=== PATIENT | female | born 1960 | race Caucasian/White ===

== ENCOUNTER 2023-06-24 15:25 | Outpatient (OUT) | payer OTHER, SELFPAY ==
[2023-06-24 17:01] LABS: Free T3 2.28 pg/mL (2.18-3.98); Thyroid Stimulating Hormone 2.408 uIU/mL (0.358-3.740)
[2023-06-24 17:11] LABS: Free T4 1.13 ng/dL (0.76-1.46)
== END 2023-06-24 15:26 | disposition home or self-care (01) ==
LOC: LAB 15:29
PROVIDERS: PCP Internal Medicine; Visit Provider Internal Medicine
DX: E03.9 Hypothyroidism, unspecified (principal)
CPT/HCPCS: 36415; 84436; 84439; 84443; 84481

== ENCOUNTER 2023-06-29 12:56 | Outpatient (OUT) | payer OTHER, SELFPAY ==
--- NOTE | 2023-06-29 13:00 | XR_ITS ---
[address] [address] Patient Name: JUNI HODGES MRN: [id number] date: 1960 Sex: F Assigned Patient Location: [facility] Current Patient Location: [facility] Accession/Order Number: [id number] Exam Date: 06/29/2023 13:08 Report Date: 06/29/2023 15:06 At the request of: SHAIKH VALENTE Procedure: XR lumbar spine 2-3V EXAM: XR lumbar spine 2-3V HISTORY: Right Sided Low Back Pain With Sciatica M54.41 COMPARISON: None. TECHNIQUE: 3 views Findings/impression: Satisfactory alignment. Maintained vertebral body heights and disc spaces. Facet arthropathy of L4-S1. No acute fracture or subluxation. Unremarkable soft tissues. Electronically authenticated by: WILMA HAMMOND Date: 06/29/2023 15:06
== END 2023-06-29 12:57 | disposition home or self-care (01) ==
LOC: RAD 12:57
PROVIDERS: PCP Internal Medicine; Visit Provider Internal Medicine
DX: M54.41 Lumbago with sciatica, right side (principal)
CPT/HCPCS: 72100

== ENCOUNTER 2023-07-29 12:58 | Outpatient (RCR) | payer OTHER, SELFPAY | END 2023-08-27 16:41 | disposition home or self-care (01) | LOC: PT 12:58 | PROVIDERS: PCP Internal Medicine; Visit Provider Internal Medicine | DX: M54.41 Lumbago with sciatica, right side (principal) | CPT/HCPCS: 97012; 97014; 97110; 97162 ==

== ENCOUNTER 2023-10-06 11:00 | Outpatient (OUT) | payer OTHER, SELFPAY ==
--- NOTE | 2023-10-06 11:07 | MM_ITS ---
Patient Name: JUNI HODGES MR#: [id number] : 1960 Exam Date: 10/06/2023 Ordering Doctor: Shaikh Quintin Chapin . RADIOLOGY REPORT PROCEDURE: MM TOMOSYNTHESIS SCREENING BI COMPARISON: MG MAMM SCREEN 3D MEKA CAD, 09/24/2022. MG MAMM SCREEN 3D MEKA CAD, 04/16/2021. MG MAMM SCREEN MEKA W CAD, 06/30/2017. MG MAMM MEKA SCRN W CAD DIG, 05/31/2013. INDICATIONS: Screening Calculator Name NCI Breast Cancer Risk Assessment Tool 5 Year Breast Cancer Risk 1.60% Lifetime Breast Cancer Risk 6.30% Personal Breast Cancer No Personal Ovarian Cancer No Treatments None Family Cancers Grandmother-paternal with breast cancer at age ~70. LOCATION: [facility] BREAST COMPOSITION: Scattered areas fibroglandular density. FINDINGS: DIAGNOSTIC CATEGORY 2--BENIGN FINDING: RIGHT BREAST: No significant suspicious finding. Scattered benign-appearing lymph nodes are present. No significant change has occurred. LEFT BREAST: No significant suspicious finding. Scattered benign-appearing lymph nodes are present. No significant change has occurred. RECOMMENDATIONS: ROUTINE MAMMOGRAM AND CLINICAL EVALUATION IN 12 MONTHS. PLEASE NOTE: A NORMAL MAMMOGRAM DOES NOT EXCLUDE THE POSSIBILITY OF BREAST CANCER. A CLINICALLY SUSPICIOUS PALPABLE LUMP SHOULD BE BIOPSIED. Dictated by: Shahid Molina M.D. on 10/06/2023 at 15:07 Approved by: Shahid Molina M.D. on 10/06/2023 at 15:09
== END 2023-10-06 11:01 | disposition home or self-care (01) ==
LOC: MAMMO 11:01
PROVIDERS: PCP Internal Medicine; Visit Provider Internal Medicine
DX: Z12.31 Encounter for screening mammogram for malignant neoplasm of breast (principal); Z80.3 Family history of malignant neoplasm of breast
CPT/HCPCS: 77063; 77067

== ENCOUNTER 2023-12-27 13:10 | Emergency (ER) | payer OTHER, SELFPAY ==
--- OUTSIDE RECORDS SUMMARY | 2023-12-27 13:16 | XMS_ITS | CCD ---
Author Name Unknown Address [address] [place] [address] Organization [facility] Care Team Providers Care Machine Pecan Gatherer Name Role Phone FAWWAD, VAIL H Attending Unavailable FAWWAD, VAIL H Admitting Unavailable DR MAKENZIE GOLDMAN V Consulting Unavailable FAWWAD, VAIL H Primary Care Unavailable FAWWAD, VAIL H Consulting Unavailable FAWWAD, VAIL H Attending Unavailable FAWWAD, VAIL H Admitting Unavailable FAWWAD, VAIL H Primary Care Unavailable ZIEBANNETTA, DR SHAHID Schmidt Consulting Unavailable FAWWAD, VAIL H Consulting Unavailable FAWWAD, VAIL H Attending Unavailable FAWWAD, VAIL H Admitting Unavailable FAWWAD, VAIL H Primary Care Unavailable ZIEBER, DR SHAHID Schmidt Consulting Unavailable FAWWAD, VAIL H Consulting Unavailable APLINGFRANCIA Attending Unavailable FAWWAD, VAIL H Primary Care Unavailable APLINGFRANCIA Admitting Unavailable FAWWAD, VAIL H Primary Care Unavailable REQUEST, NONE LISTED Consulting Unavaila ble REQUEST, NONE LISTED Attending Unavaila ble REQUEST, NONE LISTED Admitting Unavaila ble FAWWAD, VAIL H Primary Care Unavailable FAWWAD, VAIL H Consulting Unavailable FAWWAD, VAIL H Attending Unavailable FAWWAD, VAIL H Admitting Unavailable Problems Active Problems Problem Classification Problem Date Documented Date Episodic/Chronic Disorders of lipid metabolism (5 sources) Hyperlipidemia, unspecified; Translations: [HYPERLIPIDEMIA UNSPECIFIED] Onset: 03-25-2022 Chronic Osteoarthritis (4 sources) Unilateral primary osteoarthritis, left hip; Translations: [UNI PRIM OSTEOARTHRITIS LT HIP] Onset: 05-13-2022 Chronic Other lower respiratory disease (1 source) Other nonspecific abnormal finding of lung field; Translations: [OTH NONSPECIFIC ABN FIND LNG FIELD] Onset: 12-19-2022 Episodic Other screening for suspected conditions (not mental disorders or infectious disease) (4 sources) Encounter for screening mammogram for malignant neoplasm of breast; Translations: [ENC SCR MAMMO MALIG NEOPLASM BREAST] Onset: 09-24-2022 Episodic Residual codes; unclassified (1 source) Family history of malignant neoplasm of breast; Translations: [FAMILY HX MALIG NEOPLASM OF BREAST] Onset: 09-29-2022 Episodic Thyroid disorders (5 sources) Hypothyroidism, unspecified; Translations: [HYPOTHYROIDISM UNSPECIFIED] Onset: 03-27-2022 Chronic Past or Other Problems Problem Classification Problem Date Documented Da te Episodic/Chronic Other nervous system disorders (4 sources) Anesthesia of skin; Translations: [ANESTHESIA OF SKIN] Onset: 04-08-2022 Episodic Other non-traumatic joint disorders (1 source) Pain in left hip; Translations: [PAIN IN LEFT HIP] Onset: 05-16-2022 Episodic Results Test Name Value Interpretation Reference Range Facility CT CHEST WO CONon 12-16-2022 CT CHEST WO CON EXAMINATION: CT CHES T WO CON HISTORY: Lung field abnormal ; follow-up pulmonary nodules COMPARISON: CT chest 10/16/2021 TECHNIQUE: Axial, Coronal, and Sagittal images were created without the administration of IV contrast material. Dose reduction techniques were achieved by using automated exposure control and/or adjustment of mA and/or kV according to patient size and/or use of iterative reconstruction technique. FINDINGS: LUNGS: Stable appearance of several small nodules scattered within the lungs, most approximately 4 mm in diameter. No new or suspicious nodules. No acute infiltrates. PLEURA: No mass, effusion, or pneumothorax. VASCULATURE: No abnormality. MO: No mass or adenopathy. MEDIASTINUM: No mass or adenopathy. CARDIAC: No enlargement or pericardial thickening. AORTA: No aneurysm or dissection. CHEST WALL: No mass or axillary adenopathy. BONES: No bone lesion or fracture. LIMITED ABDOMEN: Multiple stones within the noninflamed gallbladder. Limited images of the upper abdomen. OTHER: Negative. IMPRESSION: 1. Stable small sub-5 mm nodules scattered within the lungs. No new nodules or suspicious findings. If patient is at increased risk for lung cancer consider follow-up CT chest without contrast in one year to document stability. 2. Cholelithiasis. Electronically authenticated by: SHAHID MOLINA Date: 2022-12-16 14:13 Normal [facility] VICKEY - VITAMIN Don 12-16-2022 VIT D 25-OH 28.8 ng/mL Normal [facility] Comment on above: Performed By: #### D ATVITD #### [facility] [address] [place] [address] Dr. Emmanuel Hillman VIT D RANGES SEE BELOW Normal [facility] Comment on above: Result Comment: <20 ng/mL Vit D deficient 20 - <30 ng/mL Vit D insufficient 30 - 100 ng/mL Vit D sufficient >100 ng/mL Potential Toxicity Performed By: #### D ATVITD #### [facility] [address] [place] [address] Dr. Emmanuel Hillman GLYCOHEMOGLOBIN A1Con 2022 ADA RECOMMENDATION SEE BELOW Normal [facility] Comment on above: Result Comment: ADA RECOMMENDED LIMIT 4.0 - 6.0 ADA THERAPEUTIC TARGET < 7.0 ACTION SUGGESTED > 7.0 Performed By: #### D ATA1C #### [facility] [address] [place] [address] Dr. Emmanuel Hillman Glucose [Mass/Vol] 108 mg/dL Normal [facility] Comment on above: Performed By: #### D ATA1C #### [facility] [address] [place] [address] Dr. Emmanuel Hillman HbA1c (Bld) [Mass fraction] 5.4 % Normal 4.5-6.2 [facility] Comment on above: Performed By: #### D ATA1C #### [facility] [address] [place] [address] Dr. Emmanuel Hillman LIPID PROFILEon 12-16-2022 CHOL-HDL RATIO NORM SEE BELOW Normal [facility] Comment on above: Result Comment: 3.3 - 4.4 LOW RISK 4.4 - 7.1 AVERAGE RISK 7.1 - 11.0 MODERATE RISK >11.0 HIGH RISK Performed By: #### L IPID, TSH, LIVER #### [facility] [address] [place] [address] Dr. Emmanuel Hillman Cholesterol [Mass/Vol] 148 mg/dL Normal <=200 [facility] Comment on above: Performed By: #### L IPID, TSH, LIVER #### [facility] [address] [address] [address] Emmanuel Hillman Cholesterol in HDL [Mass/Vol] 44 mg/dL Normal 40-60 [facility] Comment on above: Performed By: #### L IPID, TSH, LIVER #### [facility] [address] [address] [address] Emmanuel Hillman Cholesterol in LDL [Mass/Vol] 79.0 mg/dL Normal [facility] Comment on above: Performed By: #### L IPID, TSH, LIVER #### [facility] [address] [address] [address] Emmanuel Hillman Cholesterol.total/Cho lesterol in HDL [Mass ratio] 3.4 {ratio} Normal [facility] Comment on above: Performed By: #### L IPID, TSH, LIVER #### [facility] [address] [address] [address] Emmanuel Hillman HDL NORMAL > or = 60 mg/dl - LO W CARDIOVASCULAR RISK <40 mg/dl - HIGH CARDIOVASCULAR RISK Normal [facility] Comment on above: Performed By: #### L IPID, TSH, LIVER #### [facility] [address] [address] [address] Emmanuel Hillman LDL CALC NORMAL SEE BELOW Normal [facility] Comment on above: Result Comment: <100 mg/dl OPTIMAL 100 - 129 mg/dl NEAR OR ABOVE OPTIMAL 130 - 159 mg/dl BORDERLINE HIGH 160 - 189 mg/dl HIGH >190 mg/dl VERY HIGH Performed By: #### L IPID, TSH, LIVER #### [facility] [address] [address] [address] Emmanuel Hillman Triglyceride [Mass/Vol] 125 mg/dL Normal <=150 [facility] Comment on above: Performed By: #### L IPID, TSH, LIVER #### [facility] [address] [address] [address] Emmanuel Hillman VLDL CALC 25.0 mg/dL Normal [facility] Comment on above: Performed By: #### L IPID, TSH, LIVER #### [facility] [address] [address] [address] Emmanuel Hillman LIVER PROFILEon 12-16-2022 Albumin [Mass/Vol] 3.7 g/dL Normal 3.4-5.0 [facility] Comment on above: Performed By: #### L IPID, TSH, LIVER #### [facility] [address] [address] [address] Emmanuel Hillman Albumin/Globulin [Mass ratio] 0.9 {ratio} Normal [facility] Comment on above: Performed By: #### L IPID, TSH, LIVER #### [facility] [address] [place] [address] Dr. Emmanuel Hillman ALP [Catalytic activity/Vol] 69 U/L Normal 46-116 [facility] Comment on above: Performed By: #### L IPID, TSH, LIVER #### [facility] [address] [place] [address] Dr. Emmanuel Hillman ALT [Catalytic activity/Vol] 34 U/L Normal 14-59 [facility] Comment on above: Performed By: #### L IPID, TSH, LIVER #### [facility] [address] [place] [address] Dr. Emmanuel Hillman AST [Catalytic activity/Vol] 17 U/L Normal 15-37 [facility] Comment on above: Performed By: #### L IPID, TSH, LIVER #### [facility] [address] [place] [address] Dr. Emmanuel Hillman BILI, CONJUGATED 0.1 mg/dL Normal 0.0-0.2 [facility] Comment on above: Performed By: #### L IPID, TSH, LIVER #### [facility] [address] [place] [address] Dr. Emmanuel Hillman Bilirubin [Mass/Vol] 0.4 mg/dL Normal 0.2-1.0 [facility] Comment on above: Performed By: #### L IPID, TSH, LIVER #### [facility] [address] [place] [address] Dr. Emmanuel Hillman Globulin (S) [Mass/Vol] 4.3 g/dL Normal [facility] Comment on above: Performed By: #### L IPID, TSH, LIVER #### [facility] [address] [address] [address] Emmanuel Hillman Protein [Mass/Vol] 8.0 g/dL Normal 6.4-8.2 [facility] Comment on above: Performed By: #### L IPID, TSH, LIVER #### [facility] [address] [address] [address] Emmanuel Hillman TSHon 12-16-2022 TSH 5.447 uIU/mL Critically high 0.358-3.740 [facility] Comment on above: Performed By: #### L IPID, TSH, LIVER #### [facility] [address] [address] [address] Emmanuel Hillman MG MAMM SCREEN 3D MEKA CADon 09-24-2022 MG MAMM SCREEN 3D MEKA CAD Patient: CATHERINE SHEIKH Exam Date: 09/24/2022 : 1960 Gender:F Ordering : SHAIKH Quintin CHAPIN . Admission #: [id number] Family : Order #: [id number] CLICK HERE TO VIEW EXAM RADIOLOGY REPORT PROCEDURE: MAMMOGRAM SCREENING 3D BILATERAL CAD COMPARISON: MG MAMM SCREEN 3D MEKA CAD, 04/16/2021. MG MAMM SCREEN MEKA W CAD, 06/30/2017. INDICATIONS: Screening mammography Calculator Name NCI Breast Cancer Risk Assessment Tool 5 Year Breast Cancer Risk 1.50% Lifetime Breast Cancer Risk 6.70% Personal Breast Cancer No Personal Ovarian Cancer No Treatments None Family Cancers Grandmother-paternal with breast cancer at age 70. LOCATION: [facility] BREAST COMPOSITION: Scattered areas fibroglandular density. FINDINGS: DIAGNOSTIC CATEGORY 2--BENIGN FINDING: RIGHT BREAST: No significant suspicious finding. Stable, chronic small lymph nodes and focal islands of residual fibroglandular tissue. No significant change has occurred. LEFT BREAST: No significant suspicious finding. Stable, chronic small lymph nodes and focal islands of residual fibroglandular tissue. No significant change has occurred. RECOMMENDATIONS: ROUTINE MAMMOGRAM AND CLINICAL EVALUATION IN 12 MONTHS. PLEASE NOTE: A NORMAL MAMMOGRAM DOES NOT EXCLUDE THE POSSIBILITY OF BREAST CANCER. A CLINICALLY SUSPICIOUS PALPABLE LUMP SHOULD BE BIOPSIED. Dictated by: Shahid Molina M.D. on 09/24/2022 at 13:30 Approved by: Shahid Molina M.D. on 09/24/2022 at 13:35 Normal [facility] LIPID PROFILEon 03-25-2022 CHOL-HDL RATIO NORM SEE BELOW Normal [facility] Comment on above: Result Comment: 3.3 - 4.4 LOW RISK 4.4 - 7.1 AVERAGE RISK 7.1 - 11.0 MODERATE RISK >11.0 HIGH RISK Performed By: #### L IPID, TSH #### [facility] [address] [address] [address] Emmanuel Hillman Cholesterol [Mass/Vol] 149 mg/dL Normal <=200 [facility] Comment on above: Performed By: #### L IPID, TSH #### [facility] [address] [address] [address] Emmanuel Hillman Cholesterol in HDL [Mass/Vol] 44 mg/dL Normal 40-60 [facility] Comment on above: Performed By: #### L IPID, TSH #### [facility] [address] [address] [address] Emmanuel Hillman Cholesterol in LDL [Mass/Vol] 87.6 mg/dL Normal [facility] Comment on above: Performed By: #### L IPID, TSH #### [facility] [address] [address] [address] Emmanuel Hillman Cholesterol.total/Cho lesterol in HDL [Mass ratio] 3.4 {ratio} Normal [facility] Comment on above: Performed By: #### L IPID, TSH #### [facility] [address] [address] [address] Emmanuel Hillman HDL NORMAL > or = 60 mg/dl - LO W CARDIOVASCULAR RISK <40 mg/dl - HIGH CARDIOVASCULAR RISK Normal [facility] Comment on above: Performed By: #### L IPID, TSH #### [facility] [address] [address] [address] Emmanuel Hillman LDL CALC NORMAL SEE BELOW Normal [facility] Comment on above: Result Comment: <100 mg/dl OPTIMAL 100 - 129 mg/dl NEAR OR ABOVE OPTIMAL 130 - 159 mg/dl BORDERLINE HIGH 160 - 189 mg/dl HIGH >190 mg/dl VERY HIGH Performed By: #### L IPID, TSH #### [facility] [address] [address] [address] Emmanuel Hillman Triglyceride [Mass/Vol] 87 mg/dL Normal <=150 [facility] Comment on above: Performed By: #### L IPID, TSH #### [facility] [address] [address] [address] Emmanuel Hillman VLDL CALC 17.4 mg/dL Normal [facility] Comment on above: Performed By: #### L IPID, TSH #### [facility] [address] [address] [address] Emmanuel Hillman TSHon 03-25-2022 TSH 3.614 uIU/mL Normal 0.358-3.740 [facility] Comment on above: Performed By: #### L IPID, TSH #### [facility] [address] [address] [address] Emmanuel Hillman TSH RANGE SEE BELOW Normal [facility] Comment on above: Result Comment: <0.3 4 UIU/ml HYPERTHYROID 0.34-5.60 UIU/ml EUTHYROID >5.60 UIU/ml HYPOTHYROID Performed By: #### L IPID, TSH #### [facility] [address] [place] [address] Dr. Emmanuel Hillman [place] [facility] [place] [facility] [place] October 11, 2021 SHAIKH VALENTE, [address] [place] [address] Re: CATHERINE SHEIKH Date of : 1960 Thank you for your referral of Catherine Sheikh who was seen on consultation for abdominal pain, Right upper quadrant pain and nausea with vomiting. I have enclosed my consultation note for your review. I will be happy to follow Catherine. Sincerely, Raymond Davalos MD General Surgery [facility] Ambulatory Clinical Summaryo n 10-09-2021 Ambulatory Clinical Summary {[id number] Normal [facility] Gastroenterology Office/Clin ic Noteon 08-19-2021 Gastroenterology Office/Clinic Note Chief Complaint f/u EGD/Colon HPI Staff This is a 60 year old female who presents today for a follow up to EGD and colonoscopy. History of Present Illness The patient or their guardian verbally consented to allow Louisa Kern to record this visit. Catherine Sheikh is a 60-year-old white female presents today for a follow-up. She was last seen on 04/23/2021 for globus sensation, GERD, and generalized abdominal pain. I proceeded with an EGD which revealed a large esophageal inlet patch. She has been taking omeprazole for a few years. The patient had a colonoscopy and I removed 2 small benign polyps. She will need another colonoscopy in 5 years. The patient reports right upper quadrant abdominal pain sometimes daily. She has not determined if food is a trigger. She has undergone a gallbladder ultrasound which revealed gallbladder stones and slight fatty liver. Review of Systems PHQ Score Initial Depression Screen Score: 0 Constitutional: no fever, no chills, no sweats, no weakness Skin: no Jaundice, no rash, no lesions, no petechiae ENMT: no ear pain, no sore throat, no congestion, no hoarseness Respiratory: no shortness of breath, no cough, no orthopnea, no wheezing Cardiovascular: no chest pain, no palpitations, no edema Gastrointestinal: no nausea, no vomiting, no diarrhea, no constipation, no GI bleeding, abdominal pain, no dysphagia, no bloating, heartburn Genitourinary: no dysuria, no hematuria, no discharge, no pain Musculoskeletal: no back pain, no trauma Neurologic: no numbness, no sleeping problems Additional ROS info: Except as noted in the above Review of Systems and in the History of Present Illness all other systems have been reviewed and are negative or noncontributory. Physical Exam Vitals & Measurements T: 36.4 ?C (Temporal Artery) HR: 67(Peripheral) RR: 16 BP: 128/79 HT: 166 cm HT: 166.0 cm WT: 99.7 kg WT: 99.7 kg BMI: 36.18 Constitutional: Appearance: well developed Skin: Inspection: no rashes, ulcers, icterus, or telangiectasias. Eyes: Conjunctivae/lids: normal conjunctivae and lids. ENMT: Hearing: within normal limits. Lips/Teeth/Gums: normal oral mucosa Neck: Neck: normal motion, central trachea Respiratory: Percussion: thorax normoresonant. Auscultation: normal breath sounds; no rubs, wheezes, rale or ronchi. Cardiovascular: Auscultation: normal rhythm, S1 and S2; no rubs, murmurs or gallop. Peripheral: no edema Gastrointestinal/Abdom en: Abdomen: normal consistency and bowel sounds; no tenderness or masses. Liver/Spleen: normal size and consistency, not palpable. Rectal: deferred Musculoskeletal: Gait/station: normal gait Procedure EGD 06/12/2021 Findings 1. Large proximal esophageal inlet patch, 1 x 2 cm 2. Mild diffuse gastric erythema, random biopsies obtained to rule out H. pylori 3. Normal duodenum [1] Colonoscopy 06/12/2021 Findings 1. Sessile polyp, 5 mm, in the cecum, removed completely with cold snare 2. Sessile polyp, 5 mm, in the ascending, removed completely with cold snare 3. Small nonbleeding internal hemorrhoids [2] Surgical Pathology 06/12/2021 Final Diagnosis A: ANTRUM, BIOPSY: ? ANTRAL MUCOSA CONSISTENT WITH REACTIVE GASTROPATHY. B: GASTRIC BODY, BIOPSY: ? GASTRIC BODY MUCOSA WITH PROTON PUMP INHIBITOR INDUCED CHANGES. C: POLYP, CECUM, POLYPECTOMY: ? TUBULAR ADENOMA. D: POLYP, ASCENDING COLON, POLYPECTOMY: ? TUBULAR ADENOMA. Abdominal US 06/25/2021 IMPRESSION: CHOLELITHIASIS WITHOUT EVIDENCE OF ACUTE CHOLECYSTITIS. MILD HEPATIC STEATOSIS. OTHERWISE, NEGATIVE MILDLY LIMITED RIGHT UPPER QUADRANT ULTRASOUND. Assessment/Plan 1. 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 She has been on omeprazole for several years. We will stop omeprazole and switch it to pantoprazole. Patient was advised to increase the dose of pantoprazole to BID if symptoms do not improve after 1 week. 2. Gastritis (K29.70: Gastritis, unspecified, without bleeding) The patient will continue with PPI. She had a negative biopsy for H. pylori. 3. Colon adenoma (D12.6: Benign neoplasm of colon, unspecified) The patient has 2 small tubular adenomas. I recommend she repeat a colonoscopy in 5 years. 4. Cholelithiasis (K80.20: Calculus of gallbladder without cholecystitis without obstruction) Patient reports right upper quadrant abdominal pain; although, it is not classic as a postprandial pain. Her ultrasound revealed cholelithiasis. We will refer her to Dr. Aubrey Trujillo, general surgeon, for possible cholecystectomy. Patient was advised to monitor her pain improvement after we switched her from omeprazole to pantoprazole. ATTESTATION: Documentation services were performed by ORALIA after patient consented to recording for virtual clinical documentation nurse and provider reviewed before signing. ORALIA: Dona Ramires. Follow-up With When Contact (more content not included)... Normal [facility] Comment on above: Result Comment: Elec tronically Signed By: Dona Ramires R\.br\Date and Time Signed: 08/15/21 14:52 EDT\.br\Electronically Co-Signed By: Raman HENRY MD\.br\Date and Time Co-Signed: 08/19/21 09:50 EDT Reminderson 08-19-2021 Reminders - From: Raman HENRY MD To: [facility] - Clinical; Sent: 08/15/2021 13:23:07 EDT Show up: 08/15/2021 13:23:00 EDT Subject: Ambulatory Reminder repeat colonoscopy in 5 years Reminder/Recall Normal [facility] Coding Summary.on 07-12-2021 Coding Summary. [id number] Gh 0bWw+PGhlYWQ+NC0HOBBsJ 11pjHCswJ1TL8xTMW1ZFAV AWUVNUQ2KBN2vtRD0OJprE 2VybiAv RyvafCDfUL09DLj7DNO9lE ugBMoabU2urUDzB9d6ImYx DC26gM89KMsmEGSgSoF6Pz ZpbjsgbWFy S0agYyQkqUKgSfs+PHRhYm xlIHdpZHRoPScxMDAlJyBz iLayHO0yJp2aFTYsZLXumQ xhcHNlOiBj h9nwGFDmJMbuBA0raQluK2 RsjHV2ABZaj1f8Xb47dUX+ QURwDKO7kLspCPwao112Fk Yue8sfSMX6 vIGyNNbmYVU6H02zp9H3JJ HuOFQfKER7bJX4rW9rpCsg atowS0WldSPzFaT1CPK0hD HgxC7lpCha xhpgyP9dMqo+B83PQF2IEE PHFF3LLld2Q3FiHtlplCM+ UE33ATUiRN07kKVmpYHhg4 cfsDc0IrPg MLWxHLY9eAcwICrqs6SgWR DiK53ueFZrj9R3VAVwhXrg oIUpGxAbgVB0aK2xCCxsoo evh5wdnbpw Qygmv1soiw18dJ38F03yUZ qnSBObPUW0GZSoMFIxyKna gb0ucX7tAl7+UHzli6zqn2 wouBr9XlAq GXNqqpNsjItmLHY2t1DgYb 68U5WhuSmqy9ZlFjy5jk38 hEMum6J8wES5SJilCCHcdH 1mEEyiJdB8 ZQEwMjJveW78xKGwOPiqVu 8euUtnxQjrYO9sFOWmgtlg QERkgN0mQTJwkDUsfXjgAQ 4wNTBpbjtm v510ZoOePKA7FRAbjJZuQ5 UbdK8fLvRnTJPlDDBnP9Oy mHKoSYwjV046TFpeRtU2LL HpkqFoO1Au ZBInwVnrOgB9z8J2Yi3Mz0 CncmxmVKN7VBmlSSI5NaD4 PdTfNfT9R8WeUfd6YRSaoM yhCC7gL8Hk QUGdasspyyhgoWN3KUKvXL HjwP62jUPpAVuoRx1jo1Z4 j422ZKQbFQAdrZ47Gh8jnV ogMTBwdCBU zW3juicjk4atttbcSyMgSV LoBDx9WTf1WBOilTbhIuUz MMU0VmS8MTW0zUBsuG0rdG vjqzncnM1t Oyc+Y41svF7vXFJ3RJI3py nuBEUtepFtNF54QS00F7Ju PjwvdGFibGU+PGRpdiBzdH enHX5hVpXv l4dux6CvYQcpX2FuMXHdFI itIcm7IVGvKJL6aYW3nQ4h COYbWWxno7E3vZX5T0Hzof Bcmh8kx1gk TGGmGMvvM08pwSNeg7O1RN XwiMV7RRYgnKyvCvSzuZ64 Oyc+EOFdsRmja9BgCllfn8 tiv3vemSt4 OxWzRAHmrfCbbFwxBYS9v8 CkCr67P22vSHutIHMjDNXa ONYgOZGdpHmhcq7jfI6kXh 8+PGNvbCB3 uLC7qF0fCDFgBaT0XKznU5 47IlAjaOGvBvbuh9fyy8ws hOp1PdKcNSNiuaTkjZboRX W5a3LrKq23 H11hUKqvUURhQVWrEVDgDR QgpLzqcq1juH5aNg3+PC9j s1tlxq47oW63kIH+PHRkIH C4aZzdHYnj RPYkzM7gHDfhPnS8PHBnLt QeyS72aXCzGXpmDd1heOdp nXyaYA2dXIPonwavs827Vi Srn3abFWSk uAEqDGfnYSI2Q31sj6W2XC InOHMjJEV1wZI4pI6vvOoh bjogbGVmdDsgdmVydGljYW mhKGigL616 IHRvcDsnPlBhdGllbnQgTm DgTZc8G6DgYof7LUDnsOvp UD2blBQrDOhqKn7dmZqhcF lrER6bLRIk hhljy005PsDgo5nzYQEwxK JlSJhkNWS5D90yv1D4TNBf LXFvPHE9nBR6jT3coSikoh ogbGVmdDsg sxKftSjwHXywZJhpV837PI RvcDsnPkJpcnRoIERhdGU6 SL70PP08gDNpi1T3pGX4W4 BhZGRpbmct zpgnzRH2UPXhIMYdrU42Bk 5atOxeJu9iRCEpWVO5EIHg rRKhC1SpwV5zTnMeNKXnRH AcE3CifXUo VSqvJ943HCihPiY3GGGrnw GsR1KzMYMsvBvqBgL9k9I0 Qv6ST4P7AE72RC87gUZtt6 P6oKQ4O2Jj QKQuxizxuiheaWE8AJChUT BieF52Lb8nkOnlYo7eBOTt WKL0YVEzvVDoF6FamF7xSc AjMDAwMDAw X5VivAKdFBknZ447VYtxKu Y1RLTlkcAhR6DdDAFqgSog QaM6m7Q0Tw1SAJg8HJ23CB 83xNGzv2J2 aYM9B8DbYNYrzowxpkyrkU C3UEZuNAWcuT96Ck6peJdp Zz7eXJQmOKV6XNQvtTYiJ9 AaiO5hXgGu MTUuIBQwS1WasWWsJFpqP6 42KZjhUfX4CRJymwMsC5Ot UQCkvDjpSjP3d8Y3Kr1OFZ ZwAL01HWG6 wRI3BP81OJ88T5XeFvidsJ FibGU+PHRhYmxlIHdpZHRo DMlnQJBlYjGhxYyiLJ9oLh 9yZGVyLWNv mLabhSKlOdDeu7aqARBeSS rbDU5ogWwgY9CsrYQ9DCId b0k9Nq19J73aJ3LpgEO+PG LmzLO8nET0 dG5xMxMyErN5KZyrH425Dc YtjYNxTzhik9ktb0cefWf0 GrV7MVPfskHotClxBWX0g3 SjGn48X68k IHdpZHRoPSIxNSUiIHZhbG xend0obM6bZr1+PGNvbCB3 hRW5vH2fKhZqKfZ0HOdiM6 49InRvcCIv Tfhcm1zbq1jieMy2CsPgLN ArpgHbdEivMHA9e9DzPj03 N1WvzIluo9EfSoz7ez92mL Kdd0P9vUW0 X4OnNIRefcrrdPOekMrdQH 8vXSHzqdrjOSHomV6wZRQb R0m2EfJnKkI0MGvuO7Cobe F4DBImjXMu TRerEDR6T10sd7H9RSFiNB FtIOC4oKD5tX0wdVwgtepk bGVmdDsgdmVydGljYWwtYW ulP562MZAt jAhoQOCvnE6oKSZuqYWirH zyGV3pYOMmbaxpRtFYJ1tv KK9BYtGWUZ29VY24tECwk0 F6mNW1Q4Ic TCVkflatrkwfyYA7IURaOL OydU35oKYdMAprWo2ip8I3 d896LBFoEZWfyI02Qn2zkU ogMTBwdCBU vC5eyziik9nspqtrCrTrTN DvGXo5VFb0YDAvkCeoPqDv EVF3VjD9VIO9iXJydQ0wtS twxrgwqK8i Oyc+LLEcLETrVYa0EIrcpQ Q+BJIwXEX8tTnvYDkqESUa eN3tVVErX8j4DhKfPsL2GV lbE0LnVSLg ndpoSt81xS6rJqZeYdX9NV xlJ7YwkfB7LKQjaQVhDVtf NTN8Y50vf1U6UFXrSJXkBS E0aUR8iZ4g bGlnbjogbGVmdDsgdmVydG wsTCjlCZqyB132HIGhpWlo BrQcISguZGZmCO52HQ62tS Jzd8C2gSD1 U8YaMRBlufokvioavSJ8GY UnRDWlrZ42jCKcDCsnOm9r h7G5p471ITPoZXIsuV01Kw 9udDogMTBw kJYKnU5bachjr5svmvpqPb LgRIHwYTz5KSs8MDZltVbs QrJsTRK1NiK3MQA4zLOwgS 1hbGlnbjog nR3cFlv+NpZoDWsqSZ92NX 13sQUxl7E4nDA4Q1OuSZYb hzhlbrlelKN3JNBbFFUcjU 47cGFkZGlu Aw3iq7Q4p427JTMpIQLwwT 03Bo1vnJraWJEahAAYrT1r rmeti9jhqjaqXlShUQZpYY h8JCf6PRNc jOsbWnZeVBM2OzG5AYL3gB WekI2lgSkzxelpsT9dXxv+ Z8A0lLY9yPAdjNhzhIW+PC 38xm91J2Ep RklbHnw1VNMyWEH4aIO9cW 9jQLDkFRdji9Z3bED7L0La ilLjey1zy5xrRIQiSWnzM3 4dcCMon2X4 TMQvqTK9EQTvgIykBfOtgC 93Oyc+WSWozGqhg0EmNcpf c3kjc9csmXh5ZlMxTKFrhr FsaWduPSJ0 t7UfAh61T60zJTtkLWNjPK ZmKJJpPQMfbMgnhc8sdS3e Ii8+GPKrhJC0aDX1tM9wDw HhZgX5XMsf C911ZzEcdNVpTrobs2ihu3 srzNo0IzTnMSBvzhJrpUjr UIY3r8HyYp53H6YptDbdb2 YdNoq8zr20 dTXdw9P1gKW1C2JaXYLbwl lugHDofJvtYW2tQQImhjzg CDFxhP3lKTRwS3w3ZrTkSp X0SWbiB4Lb pwZ2UWKmqCDoFGIslENWrQ 5bhisxb8drswfeZyAqJGUl WXn4KSn5MFLleXtlXoGaGE C8UlT7AKF8 xJKmpG0idHkydxjlxB9dCm c+VVn2f4ohtAMnDP5tzPK3 KI29BI47xHJcu1H2eCD2B4 BhZGRpbmct nfrhnZL3MMWdBHLhbB11Td 1mlZwyOy1gBNOrIPT6VALu eNPuC3CvsE1wAsQjVCBbAA DpP3HqfNHg CAtmZ740KSyhFiI9OPQfzl LyF0QbPETecAdaRzF8j5O1 Os9QDO44PC28JK53bXWda6 L8yRE8O6Lz EAWoojkxiqixeNW7XUGsYH VlrL44Ic1ecAhlMj6aMCWj UQY8IGHlcAVeY1AgmX2hVk AjMDAwMDAw S5BzwTRbZMpmJ827OOppRu P8FKMrtqFiD5MzRQGlhHpa PrF0o3J5Sp4YEg10GS80ZI 95oPIgc2J8 iDZ8V8TzBNTfumvjdjsuwZ C9PFTgSRYyxN26Ui3koSuo Vx9mVQCrBRL9IWMoyTXpY2 GsiP8aYuXt AXQsFKFsX0PdlSVsFKzyL4 66EDhdIdG7ETIlifCaW5Hp ZBGwyXraOkJ8s1U4Dw9JRP vlqgj7Q3Vq PjwvdHI+UR52FBHfGQ56oO EezPQsy4gyuBn1ZeHbURGo FKF6vJqrAUxty6PnCBCpN1 2pmFBvs2A5 IGNv (more content not included)... [facility] US Abdomen, Limitedon 2020 US Abdomen, Limited Exam Date/Time: 06/25/2021 08:39 EDT Reason for Exam: ABDOMEN PAIN;Abdominal pain Report IMPRESSION: CHOLELITHIASIS WITHOUT EVIDENCE OF ACUTE CHOLECYSTITIS. MILD HEPATIC STEATOSIS. OTHERWISE, NEGATIVE MILDLY LIMITED RIGHT UPPER QUADRANT ULTRASOUND. EXAM: US Abdomen, Limited DATE: 06/25/2021 CLINICAL HISTORY: Abdominal pain, ABDOMEN PAIN. COMPARISON: None available. TECHNIQUE: Transabdominal ultrasound of the right upper quadrant was performed. FINDINGS: The study is mildly limited by the patient's body habitus. A few less than 1 cm mobile gallstones are present within an otherwise unremarkable gallbladder. There is no significant gallbladder distention, wall thickening, pericholecystic fluid, biliary dilatation, or ascites identified. The common duct measures approximately 4 to 5 mm at the alden hepatis. Mildly increased echogenicity of the normal-sized liver is most consistent with fatty infiltration. The visualized pancreas, right kidney, and great vessels are unremarkable. FINAL REPORT Dictated: 06/27/2021 12:48 pm Drake Singh MD Signed (Electronic Signature): 06/27/2021 12:48 pm Signed by: Drake Singh MD Transcribed by: VIRGIL Technologist: CARRIE Normal [facility] Consent for Treatmenton 06-03 Consent for Treatment [id number]#1.0 0CD:127 Normal [facility] IntraOperative Documentson 0 06-25-2021 IntraOperative Documents [id number]#1. 00CD:127 [facility] Postoperative Documentson Postoperative Documents [id number]#1.0 0CD:127 Normal [facility] Coding Summary.on 06-17-2021 Coding Summary. CD:[id number] Gh 0bWw+PGhlYWQ+GA8ZDWEwJ 76mvTRtqV7AU7sKYA1PJMF SUUYZFW5RST9nfKA0LSgpS 2VybiAv IqqelBBvPE25RAv7CBF3dO nrBZvhrJ9moTCtZ9i8IsWy UL32zJ24DQbzWFYdNuU9Or ZpbjsgbWFy T3acNwNjhKCfEnt+PHRhYm xlIHdpZHRoPScxMDAlJyBz zZebRH7eFv3aVSYkXPDbnR xhcHNlOiBj p5cmPSArTUadZT4imGibS5 GjiYP2DVGos4y0Zc21dTF+ WBLvBTH6gReuBKxct562Ro Xsa1wrARM2 mPEaZSkwJSI7H86sv4T6VZ NyJJIuGGA8xQR9xH0utFsb lwehL1HzwGHqNzJ2CBH0cX AaqY9twGmn xvdarA1lEzo+V59TJM7CUW UWVP3MMfc2N4AdAxfdxQN+ GX65EZEzFY12eDEkuXObi5 wmgHs9ZgEn CNFyRHU2sSicCTejp8GyKY HmH03htPEbh1B6TUOntQwx cTQgRqFxnIZ7aZ2tPTnlzs syq2xhyxgu Uwhmy6ubor87mM87N69dDF otOXIcDDE2KAUjXBPwhFnk ja7fyO1lGx1+FLzmu3bia2 wlnZq8YwIu EZDpmyNvhLewQCY6u7QjAp 94G9DdpYozz7UpXto0yd18 zHPvx8Y5sPE6HUffRYCbzQ 2fOIuwDvM5 SLRiPgGwzZ63wRPqLMalHk 8qfZnqeKrhAE0nKYTvqcwd PVQjfT8eLDBooFLgdJrvNI 4wNTBpbjtm t427DtHuGVF5JJBtvJNvF6 GidV4mKvDhKXZwYXPfE2Eu nLTsEKttW005SIkjIeE9NV OmszWaM0Fm IKNhqFctKnB4r9H5Ko3Ya7 XtevhdKXC6PHiaNWW7RxV5 EgAjTqP4B5UwBhi5EGQsyX dgPK9nY4Pd SCFyeipxssqyaRU1XMFqKI SexM06gVXvXCzjUx8pf8X1 i118CSSlEWGdgV34Rc6pgV ogMTBwdCBU mM1ncxzfi0mqmtorFwLiDN KvCVq8EOm5FIGetNstHyHi AQC6CbT9VAH8zYIehI7euJ dcsdiquN6p Oyc+M93ltA2aCJD9VDP3ar kfZOMpvyByYT84OX07J0Yj PjwvdGFibGU+PGRpdiBzdH ffUZ7zBsQs l2zei0KsWViiE2KgTOZtLT ceTax5EFOkAWH7uRR9qV9x HIZkSXdhe0W6lCE8Q7Xxmn Nugp1ce3pr WBBwTMfrF45ykAKxg6P1EX FnrIQ2CUJumYkzAyXshO87 Oyc+VVEcyAcew3JrKnclf3 qlj5qrgKr0 HvWdYWGrnyTqlUnpLOK6e9 BlJn43N35eLFbpWBQoHEKn BLFmVFIwvMvrxy0fgJ3eFt 8+PGNvbCB3 lXY1nL6xILXeXlX9FUsaY7 84MqYysAJxHeuox9eqa8jq gWa8JwEiQZNsbfJaqDxaPS F6u7ZqRj45 W56dSBreEIMkQLNiKBHxTI UgkFnxmu7bxV9dBy8+PC9j p0qwfp57bS07jGK+PHRkIH I2hYhfKWux YKKgvY3hPKgcRsW5AGIxJs WbwF20pNRwBGmwQl6seNts jEnmPV3cRKBhkrvyc013Xn Bvs9muUPFf dQRtRBaqYBW0N86kw8D8BD WgHUTbLTZ7nDF8cR2czEfl bjogbGVmdDsgdmVydGljYW zpVCnwI128 IHRvcDsnPlBhdGllbnQgTm LeWPj8O9VsHdm1GYJdnAno ON7ihGNpHWxzFm7fwJykfT exBN5dHLHy chvec043DaHyb1ksGJJluF PdKJmrWFF4Z94th5C0JMJb GCXkYTO9uJS8oF6fjCotze ogbGVmdDsg njBfzUypERluQWopW629FR RvcDsnPkJpcnRoIERhdGU6 PF72BZ52sHUop7O1iAU5X6 BhZGRpbmct qhzrtVM9CTFuSPSwvT71Jc 4omOflHa8jSBHxRKI6MKBk zAZmJ1GctV4hYrZyUCBjUE UvW2AmyOGl NTsuG524CFbqOfI4ANXeyx TwA3TeGUMxwPliDoB8e5W7 Yf0PO3Y7CA21DM04mBSqg7 X5bFV5Z5Ul BJZxytuuxibjnNA5EERhLD OhzJ58Zo9lwHswSn8jNKUu QUS4PLDeyTNpI0PeeQ9wXv AjMDAwMDAw K9XbeZVwYAxzM515KCggMp V8GCSprdJaU2QoJNIsuEwn YdQ0m0F5Rw0OCOb1AY54SI 83hAKjb1V0 tKY4W5EtNXGwufoipfkhbE L1CUOjKOAejJ22Fo4ibUuw Kg4hLAYtGMG5EDOvwXLnC3 CmcB9yTpNq LGQgFOSbQ1LcbGTdRMyrP0 27HKkoDyG1GWDizyJdD7Ug DZPckInxOvF6i0L6En2ZAM UdCT16XVG4 mKP8WQ24NU40G4FkLpvftF FibGU+PHRhYmxlIHdpZHRo SUezJKEfVoTekAfeHA2sOb 9yZGVyLWNv cDasmTLpTaEbl6zyHKSuPN loCQ4ewGgaH3RqpBI0FPVq s7n9Ij07A54cF4ShsIY+PG JbfLJ5qFA0 nN1hXgPwRbE9KUqtR825Wf YglKGoLatas5rxh8bzrVq0 JkL9ASCneeGxyUupPJW1p4 KdAg90X03m IHdpZHRoPSIxNSUiIHZhbG dqle1upH9yTi6+PGNvbCB3 kWS7zP3oLdMzDhN3AChuK4 49InRvcCIv Uuczj8xhi9ifiPr7FdQuST UuyzLurHqeGDM1n6DuRv40 V8AekKdwu8ShKuu1wz11zA Fbs2V0vTL7 T0QwIIYtemkbmESznJeePU 0mHGTuwmiiGEHenS8jSFDn S7q3QpCbPlF7AGtlI5Ceed P5IAIzxVFr XExwIJJ8O17hj9T3AFFvPA AsKEO0zZA0rR2xzGssuuab bGVmdDsgdmVydGljYWwtYW xnH048WOGc rWzjAKVzrN7jEGBirIKraD azCL3lQUChkivjWsNFS3yp IN9GLqTORK13FX12aIZve6 Z4gTI6F8Tm BERjuhwinzrfsXV1TJKtEJ FlkT62hCDbCQlmPt8ty9V6 r017EMSxLHRiyD57Rk8yiQ ogMTBwdCBU pY3sdzhbl8bhouduEhEsZI UwPBu1QZl3UABmzOlnIbNh XSC4PmO7NIZ0zALzoI3yfX axvkvdqI6b Oyc+QFTmXXMrYBi8XYvabW Q+FDLbGWI0wYzdXFbjAFZa gY4hRJCxQ8u9OqLhOqS9WY lsN8FmEZYv rjrlSg86oF0vOeUbEdY7ZM btM1ZlstA6IPTppZZuFVyy JNB6I21od2Y6FXQgSVDvAL M4zRI3kS3y bGlnbjogbGVmdDsgdmVydG vxRBoiDMmpI170PCIrdNrj ApEjKTupWWIxLU68EZ47pT Bqk2R2pQQ3 B2PkFPCfpudnrlcsaSL6PO OqGQFvjK59yPDrPDguAn9i e5W8i096BLZwROFpfU92Td 9udDogMTBw vOAUgY5owxzdk9vghxyhMw LkKLWyXXh2CPt1BTCpoYlg YtZwPNI1JuC5AKL5jAPyfU 1hbGlnbjog uP9jWzq+BmJvTKlaZJ28NL 47rPDja6Z7nZF9F5AuZNHz dtaguuveoZF3IEKyHKInhO 47cGFkZGlu Ds5kv7S6e000GCWrTNIbiA 31Mk0giQokNNUefKLGyI8s sebaa5gxxpalRqFkFXVnHZ s2HRk0HNMw bIrwNbYlWFN6RaA0WSI7zK QfxG6czHzmtegjsY6cBiv+ I2M2cTK7qQGscBnphNS+PC 89xa20S2Fv JhgcLnp5FEGeHRV3eDE2gX 5vBGCyZEurw8I6cTB0R4Cx nsIbrx2kb4syHKXwFRufW0 3qoTYzf1W6 JVXscOM5XBFwsAapDuQpwC 93Oyc+EYXjyMdrl7YsKhfv y1rwk8xikMj3DqYqDEVvnu FsaWduPSJ0 t0FtBd48N90tYVbrZYNjXZ PwWNRuSEXtzExwyo7ppQ0v Ii8+VGXktCM8gEN0jF4xTb CyYuL3GKea M008EwIhgOCwGnpht6zsp0 flgCk1WfCwXGEdavXeoIsp VIF0f8YdIj28X6HukGker4 GjSom0tj57 tRAps3C3wNP3P2TwTPEfhw wvnYJweKjtJI7tJGDqegyo TGBjuH8pTQDzX2k4HhZbQr G4TGkxR1Wg ngC6GRTykTZnKOSfqVQTnW 2xvhvre1bniaaeOmUlFSOh TLp8BEl4UURyaRocXlHuMG N8XiS4USS6 yYWtyO5jvHknvsxcnH5wFr c+NAf0s5wvcJKrSN3mzLO8 AS90WW59vINrs9Z7qCF0F9 BhZGRpbmct ouwypCS9YTQfPFUigP18Mb 1nvKlbDu5wFAXgRJD7TBMb yBGoO9ObrG6xRwDnUXWtFZ PkF1AmqNEm EShpU839HFedAdY7XZIcwo WcA6NpICUguAshXeP5n7H7 Mh3CYD21QU88WJ26jYJpb8 B5mXG1I2Zg JKTntobovhzmyFW1QEGxJW RzdF61Hm2hpIwsZb9oSXGc QJU2LRAzpDTgP7RvxN5vUb AjMDAwMDAw K3CpbQLpCMzfH583CIfvSw W3HYDhlzAgH8VuMENndVrg HsT8t4V7Iv9NGw50NY94QH 45aKBsq4G4 nJY2S7MnMRRtnuutcldukD B7NYJqRAQyoW91Ol8hxPdz Pz0zARGhDEB2IIKzrBFoE8 CxtS3cMeVg HBWbIJExF8FafNXpKXsiM4 98MVlxQkV6DDGpxnWkZ3Gd MFWmjTdvRbV0i6X0Kk0ZDL imbwh8G3At PjwvdHI+CM96FDGrSW99wU LehESbq2nsbBb3ZhBbAPNt PKR3xYxmYUcei0VaOEIvE8 3vzJNsl4H4 IGNv (more content not included)... Normal [facility] Main OR Intraoperative Recor don 06-17-2021 Main OR Intraoperative Record IntraOp Document Type FT Summary Primary Physician: Raman HENRY MD Finalized Date/Time: 06/17/21 09:30:46 Pt. Name: CATHERINE SHEIKH.O.B./Sex: 1960 Female Med Rec #: [id number] Physician: Raman HENRY MD Financial #: [id number] Pt. Type: O Room/Bed: / Admit/Disch: 06/12/21 11:31:54 - 06/12/21 23:59:59 Institution: Case Times FT Entry 1 Patient Times In Room 06/12/21 12:49:00 Out Room 06/12/21 13:10:00 Procedure Times Start 06/12/21 12:52:00 Stop 06/12/21 13:05:00 Anesthesia Times Start 06/12/21 12:49:00 Stop 06/12/21 13:10:00 Time at [facility] 06/12/21 12:59:00 Last Modified By: Ita Childress RN 06/12/21 13:11:05 General Comments: 1254-EGD COMPLETED/AW RN 1257-COLONOSCOPY STARTED/AW RN 06/17/21 Chart opened to review and send charges Garcia CUEVAS Case Attendance FT Entry 1 Entry 2 Entry 3 Case Attendee Jez HASSAN, Vlae Childress RN, Mikayla Toth Role Performed Anesthesiologist Chief Ii Dispatcher - Primary Scrub - Primary Computer Instructor Time In 06/12/21 12:49:00 06/12/21 12:49:00 06/12/21 12:49:00 Time Out 06/12/21 13:10:00 06/12/21 13:10:00 06/12/21 13:10:00 Procedure EGD AND COLONOSCOPY(.) EGD AND COLONOSCOPY(.) EGD AND COLONOSCOPY(.) Comments DR. DUNBAR SUPERVISING Last Modified By: Monroe RN, Ita Childress RN, Ita Queen RN 06/12/21 14:49:23 06/12/21 13:11:07 06/12/21 13:11:07 Entry 4 Case Attendee Raman HENRY MD Role Performed Surgeon - Primary Time In 06/12/21 12:49:00 Time Out 06/12/21 13:10:00 Procedure EGD AND COLONOSCOPY(.) Comments Last Modified By: Ita Childress RN 06/12/21 13:11:07 Perioperative Protocols FT Pre-Care Text: Implements protective measures prior to operative or invasive procedure, confirms identity before the operative or invasive procedure, verifies operative procedure, surgical site, and laterality Entry 1 Procedure(s) EGD AND COLONOSCOPY(.) Patient Identity Birthday, ID Band Verified (select at Check, Patient least 2): Participation Consents / H and P Anesthesia Consent, Operative Site N/A Verified HandP, Surgery/Procedure Marking Verified Consent Surgical Site No Laterality Verified n/a Verified Procedure Verified Yes Correct Patient Yes Position Verified Availability Equipment, Medication Prep Dry n/a Verified (If Applicable) PreOp Antibiotic No Time Out Vale Kay, Given Participants Ita Childress RN, Sparks, Micala E, SALAM MD, Maher Time Out Complete 06/12/21 12:51:00 Outcomes Met? Yes Last Modified By: Ita Childress RN 06/12/21 12:52:08 Post-Care Text: The patient is free from signs and symptoms of injury caused by extraneous objects Allergy Information FT Pre-Care Text: Verifies allergies Entry 1 Allergies Reviewed? Yes Allergies Reviewed Self/Patient With Outcomes Met? Yes Last Modified By: Ita Childress RN 06/12/21 07:51:09 Post-Care Text: The patient received appropriate medication(s) safely administered during the perioperative period Surgical Procedures FT Entry 1 Procedure Description Procedure EGD AND COLONOSCOPY Modifiers . Surgeon Description EGD with gastric body and antrum biopsies. COLONOSCOPY with cecal polypectomy and ascending colon polypectomy Primary Procedure Yes Primary Surgeon Raman HENRY MD Start 06/12/21 12:52:00 Stop 06/12/21 13:05:00 Anesthesia Type General Surgical Service Gastroenterology Wound Class 2 - Clean-Contaminated Last Modified By: Ita Childress RN 06/12/21 13:11:31 General Case Data FT Pre-Care Text: Classifies surgical wound, implements aseptic technique, initiates traffic control Entry 1 Case Information OR ENDO 1 FT Case Level Level 2 Wound Class 2 - Clean-Contaminated Specialty Gastroenterology ASA Class 2 Preop Diagnosis GERD and GENERALIZED Postop Same As Preop No ABDOMINAL PAIN Postop Diagnosis EGD- esophageal inlet Outcomes Met? Yes patch, gastritis. Colonoscopy -cecal polyp, ascending colon polyp and internal hemorrhoids. Last Modified By: Ita Childress RN 06/12/21 13:11:47 Post-Care Text: The patient is free from signs and symptoms of infection Skin Assessment (Pre Procedure) FT Pre-Care Text: Implements protective measures to prevent skin/ tissue injury due to thermal or mechanical sources Evaluates for signs and symptoms of physical injury to skin and tissue Entry 1 Skin Integrity Intact, [place], Warm, and Skin Abnormality No Dry Outcomes Met? Yes Last Modified By: Ita Childress RN 06/12/21 07:51:31 Post-Care Text: The patient is free from signs and symptoms of injury caused by extraneous objects Patient Positioning FT Pre-Care Text: Identifies physical alterations that require additional precautions for procedure-specific positioning, verifies presence of prosthetics or corrective devices, positions the patient, evaluates the patient for signs and symptoms of injury as a result of positioning (more content not included)... Normal [facility] 06-13-2021 Consent [id number]#1.0 0CD:127 Normal [facility] Discharge Instructionson Discharge Instructions [id number]#1.0 0CD:127 Normal [facility] IntraOperative Documentson 0 06-13-2021 IntraOperative Documents [id number]#1.0 0CD:127 Normal [facility] IntraOperative Documents [id number]#1.0 0CD:127 Normal [facility] CBC w/Indiceson 06-12-2021 Erythrocyte distribution width (RBC) [Ratio] 15.6 % High 10.9-14.2 [facility] Comment on above: Performed By: #### 2 425023, [id number], 2758760, 3067279 ####[facility] [address] [place] [address] Hematocrit (Bld) [Volume fraction] 36.8 % Normal 34.0-46.0 [facility] Comment on above: Performed By: #### 2 743602, 68129016, 9141535, 8974630 ####[facility] [address] [place] [address] Hemoglobin (Bld) [Mass/Vol] 12.5 g/dL Normal 12.0-16.0 [facility] Comment on above: Performed By: #### 2 893405, 18499672, 3453366, 9084345 ####[place] [id number] MCH (RBC) [Entitic mass] 28.6 pg Normal 27.0-34.0 [facility] Comment on above: Performed By: #### 2 070343, 22614912, 7321067, 4011881 ####[place] [id number] MCHC (RBC) [Mass/Vol] 33.8 g/dL Normal 31.4-36.0 [facility] Comment on above: Performed By: #### 2 668792, 46139084, 6312292, 8946683 ####[place] [address] MCV (RBC) [Entitic vol] 84.5 fL Normal 80.0-100.0 [facility] Comment on above: Performed By: #### 2 394033, 53677209, 8326850, 4673657 ####[address] [address] Platelet mean volume (Bld) [Entitic vol] 8.0 fL Normal 6.4-10.8 [facility] Comment on above: Performed By: #### 2 368606, 34873476, 6123665, 6620278 ####[address] [address] Platelets (Bld) [#/Vol] 186.0 E9/L Normal 150.0-500.0 [facility] Comment on above: Performed By: #### 2 231103, 66951882, 2261183, 6807055 ####[place] [address] RBC (Bld) [#/Vol] 4.4 E12/L Normal 4.3-5.9 [facility] Comment on above: Performed By: #### 2 884826, 94603499, 4054586, 5568687 ####[facility] [address] [place] [address] WBC corrected for nucl RBC Auto (Bld) [#/Vol] 5.7 E9/L Normal 4.0-11.0 [facility] Comment on above: Performed By: #### 2 737142, 07652318, 4239337, 5829656 ####[place] [address] [place] [address] CMPon 06-12-2021 Albumin [Mass/Vol] 3.9 g/dL Normal 3.3-5.0 [facility] Comment on above: Performed By: #### 2 891471, 73776594, 8972003, 4914535 ####[address] [address] Albumin/Globulin (S) [Mass conc ratio] 1.2 Normal 1.1-2.2 [facility] Comment on above: Performed By: #### 2 323301, 30305027, 8413892, 6771663 ####[place] [address] [place] [address] ALP [Catalytic activity/Vol] 56 Int._Unit/L Normal 21-98 [facility] Comment on above: Performed By: #### 2 549776, 50705428, 2779145, 2141562 ####[facility] [address] [place] [address] ALT No additional P-5'-P [Catalytic activity/Vol] 23 Int._Unit/L Normal 6-46 [facility] Comment on above: Performed By: #### 2 343558, 44948813, 0624444, 1552674 ####[facility] [address] [place] [address] Anion gap [Moles/Vol] 13 mmol/L Normal 6-16 [facility] Comment on above: Performed By: #### 2 865265, 53602837, 0999762, 4545048 ####[facility] [address] [place] [address] AST [Catalytic activity/Vol] 18 Int._Unit/L Normal 5-43 [facility] Comment on above: Performed By: #### 2 993233, 12224438, 1714964, 5288923 ####[facility] [address] [place] [address] Bilirubin [Mass/Vol] 0.6 mg/dL Normal 0.0-1.1 [facility] Comment on above: Performed By: #### 2 101118, 71964270, 4107050, 6684361 ####[facility] [address] [place] [address] Calcium [Mass/Vol] 9.0 mg/dL Normal 8.9-11.1 [facility] Comment on above: Performed By: #### 2 459039, 08449962, 7054331, 3393367 ####[facility] [address] [place] [address] Chloride [Moles/Vol] 111 mmol/L Normal 101-111 [facility] Comment on above: Performed By: #### 2 955515, 43582343, 9654874, 5820287 ####[facility] [address] [place] [address] CO2 [Moles/Vol] 25 mmol/L Normal 21-31 [facility] Comment on above: Performed By: #### 2 677055, 93703466, 8366974, 3171215 ####[facility] [address] [place] [address] Creatinine [Mass/Vol] 0.7 mg/dL Normal 0.5-1.3 [facility] Comment on above: Performed By: #### 2 [id number], [id number], [id number], [id number] ####[facility] [address] [place] [address] Globulin (S) [Mass/Vol] 3.4 g/dL Normal 1.4-4.0 [facility] Comment on above: Performed By: #### 2 [id number], [id number], [id number], [id number] ####[facility] [address] [place] [address] Glucose [Mass/Vol] 99 mg/dL Normal 55-199 [facility] Comment on above: Result Comment: If t his glucose result represents a fasting glucose, interpretation should refer to the following reference range: 55-99 mg/dL Performed By: #### 2 [id number], [id number], [id number], [id number] ####[facility] [address] [place] [address] Potassium [Moles/Vol] 3.6 mmol/L Normal 3.5-5.3 [facility] Comment on above: Performed By: #### 2 [id number], [id number], [id number], [id number] ####[facility] [address] [place] [address] Protein [Mass/Vol] 7.3 g/dL Normal 6.0-7.8 [facility] Comment on above: Performed By: #### 2 520459, [id number], [id number], [id number] ####[facility] [address] [place] [address] Sodium [Moles/Vol] 145 mmol/L Normal 135-145 [facility] Comment on above: Performed By: #### 2 887861, [id number], 8906984, [id number] ####[facility] [address] [place] [address] Urea nitrogen [Mass/Vol] 10 mg/dL Normal 5-21 [facility] Comment on above: Performed By: #### 2 134700, [id number], [id number], [id number] ####[facility] [address] [place] [address] Urea nitrogen/Creatinine [Mass ratio] 14 No Units Normal 10-20 [facility] Comment on above: Performed By: #### 2 [id number], [id number], [id number], [id number] ####[facility] [address] [place] [address] Consent for Treatmenton 06-02 Consent for Treatment [id number] 0CD:[id number] Normal [facility] Endoscopic Procedure Report - Otheron 06-12-2021 Endoscopic Procedure Report - Other Patient: CATHERINE SHEIKH Age: 60 years Sex: Female : 1960 Associated Diagnoses: None Author: Raman HENRY MD Pre-Procedure Procedure Date 06/12/2021 13:08:00 . Procedure Type: Colonoscopy with removal of tumor(s), polyp(s), or other lesion(s) by cold snare technique. Procedure provider Performed by Raman Henry MD. Current history and physical Documented on chart. Colorectal neoplasm risk assessment Average risk. Informed Consent After discussing the rationale, risks and benefits, and alternatives to this procedure, the patient provided signed consent for the procedure. Pre-procedure diagnosis: Unexplained chronic abdominal pain. Medications Anticoagulant/antiplat elet None. ASA Classification: Class II. . Procedure The procedure was performed in the hospital. Rectal exam was performed and was normal with no masses palpated. The patient was positioned in the left lateral decubitus position and a digital rectal exam was performed.. Endoscope type used was an adult-size. The endoscope was lubricated then introduced through the anus. The scope was advanced to the cecum verified by photographing the appendiceal orifice, verified by photographing the ileocecal valve, verified by transillumination, The time to the cecum was 2 minutes, The withdrawal time was 6 minutes. No difficulties encountered during the procedure. The bowel preparation quality was adequate (see polyps greater than or equal to 6 millimeters). The patient tolerated the procedure well. Findings 1. Sessile polyp, 5 mm, in the cecum, removed completely with cold snare 2. Sessile polyp, 5 mm, in the ascending, removed completely with cold snare 3. Small nonbleeding internal hemorrhoids Images Procedure images: [email or web address]__ [id number] [email or web address]__ [id number].[email or web address] . Post-Procedure Complications: none. Estimated blood loss: none. Specimens: sent to pathology. Devices/ implants: none left in place. Impression and Plan 1. Sessile polyp, 5 mm, in the cecum, removed completely with cold snare 2. Sessile polyp, 5 mm, in the ascending, removed completely with cold snare 3. Small nonbleeding internal hemorrhoids Recommendations: Repeat colonoscopy:: Pending pathology results, 7 yrs. Follow-up:: Clinic follow-up in 1-2 weeks. Diet:: Resume previous diet. Medication resumption:: Continue current medications. Return to activities:: After 24 hours. [facility] Comment on above: Result Comment: Elec tronically Signed By: Raman HENRY MD\.br\Date and Time Signed: 06/12/21 13:09 EDT Other Comment: Darlin diaz Attachment - attachment storage system not supported [id number] Can be viewed in source systemMissing Attachment - attachment storage system not supported [id number] Can be viewed in source system Endoscopic Procedure Report - Other Patient: CATHERINE SHEIKH Age: 60 years Sex: Female : 1960 Associated Diagnoses: None Author: Raman HENRY MD Pre-Procedure Procedure Date 06/12/2021 12:55:00 . Procedure Type: Esophagogastroduodenos copy. Procedure provider Performed by Raman Henry MD. Current history and physical Documented on chart. Informed Consent After discussing the rationale, risks and benefits, and alternatives to this procedure, the patient provided signed consent for the procedure. Pre-procedure diagnosis: Epigastric pain. Medications Anticoagulant/antiplat elet No anticoagulation or antiplatelet. ASA Classification: Class II. . Monitoring: See anesthesia record. . Procedure The procedure was performed in the hospital. See anesthesia record for sedation given during procedure. The patient was positioned starting in the left lateral decubitus position and with safety measures. Endoscope type used was an adult-size, introduced orally, advanced to the 2nd portion of the duodenum. No difficulty was encountered during the procedure. Views were good. Gastric biopsies were taken of the fundus and of the antrum. The patient tolerated the procedure well. Findings 1. Large proximal esophageal inlet patch, 1 x 2 cm 2. Mild diffuse gastric erythema, random biopsies obtained to rule out H. pylori 3. Normal duodenum Images Procedure images: Esophagus Fundus Duodenum Proximal esophageal inlet patch . Post-Procedure Complications: none. Estimated blood loss: none. Specimens: sent to pathology. Devices/ implants: none left in place. Impression and Plan 1. Large proximal esophageal inlet patch, 1 x 2 cm 2. Mild diffuse gastric erythema, random biopsies obtained to rule out H. pylori Recommendations: 1. Awaiting pathology report. 2. GI clinic follow-up in 2 weeks 3. Gallbladder ultrasound, CBC, CMP and lipase Normal [facility] Comment on above: Result Comment: Elec tronically Signed By: Raman HENRY MD\.br\Date and Time Signed: 06/12/21 13:08 EDT Other Comment: Darlin diaz Attachment - attachment storage system not supported [id number] Can be viewed in source systemMissing Attachment - attachment storage system not supported [id number] Can be viewed in source systemMissNoWait Attachment - attachment storage system not supported [id number] Can be viewed in source systemMissing Attachment - attachment storage system not supported [id number] Can be viewed in source system Inpatient Patient Summaryon 06-12-2021 Inpatient Patient Summary [place] [id number] [facility] Clinical Discharge Instructions PERSON INFORMATION Name: CATHERINE SHEIKH PHYSICIANS Admitting Physician: Raman HENRY MD Attending Physician: Raman HENRY MD PCP: SHAIKH CHAPIN Discharge Diagnosis: Esophageal inlet patch Comment: PATIENT EDUCATION INFORMATION Instructions: Medication Leaflets: Follow up: MEDICATION LIST Medications to Continue Taking That Have Changed Other Medications START: multivitamin (Multi Vitamin+) 1 tab By Mouth every day. Medications to Continue with No Changes Other Medications atorvastatin (Lipitor 10 mg Tab) 1 Tablets By Mouth every day. levothyroxine (levothyroxine 75 mcg (0.075 mg) Tab) 1 Tablets By Mouth every day. omeprazole (omeprazole 40 mg Cap-DR) 1 Capsules By Mouth every day. Comment: Normal [facility] Lipase Levelon 06-12-2021 Lipase [Catalytic activity/Vol] 23 U/L Normal 13-58 [facility] Comment on above: Performed By: #### [id number] ####[facility] [id number] [place] [address] Main OR PACU I Recordon 06-02 Main OR PACU I Record PACU Phase I Docum ent Type FT Summary Primary Physician: Raman HENRY MD Finalized Date/Time: 06/12/21 14:39:20 Pt. Name: CATHERINE SHEIKH/Sex: 1960 Female Med Rec #: [id number] Physician: Raman HENRY MD Financial #: [id number] Pt. Type: O Room/Bed: / Admit/Disch: 06/12/21 11:31:54 - Institution: Case Times PACU I FT Pre-Care Text: Identifies barriers to communication and implements measures to provide psychological support Develops individualized plan of care, and ensures continuity of care Maintains patient's dignity and privacy, and maintains patient confidentiality Identifies and reports philosophical, cultural, and spiritual beliefs and values Identifies individual values and wishes concerning care Implements aseptic technique, and administers prescribed antibiotic therapy and immunizing agents as ordered Evaluates postoperative tissue perfusion Implements thermoregulation measures, and monitors body temperature Evaluates postoperative respiratory status Evaluates postoperative cardiac status Evaluates postoperative neurological status Assesses pain control, collaborated in initiating patient-controlled analgesia and implements alternative methods of pain control Verifies allergies, administers prescribed medications and solutions, evaluates response to medications Entry 1 In PACU I 06/12/21 13:11:00 Discharge from PACU 06/12/21 13:48:00 I Outcomes Met? Yes Last Modified By: Haley CASILLAS, Dolores 06/12/21 14:39:12 Post-Care Text: The patient demonstrates knowledge of the expected response to the operative or invasive procedure The patient's care is consistent with the individualized perioperative plan of care The patient's right to privacy is maintained The patient's value system, lifestyle, ethnicity, and culture are considered, respected, and incorporated into the perioperative plan of care The patient participates in decisions affecting his or her perioperative plan of care The patient is free from signs and symptoms of infection The patient has wound/tissue perfusion consistent with or improved from baseline levels established preoperatively The patient is at or returning to normothermia at the conclusion of the immediate postoperative period The patient's respiratory function is consistent with or improved from baseline levels established preoperatively The patient's cardiovascular status is consistent with or improved from baseline levels established preoperatively The patient's cardiovascular status is consistent with or improved from baseline levels established preoperatively The patient demonstrates and/or reports adequate pain control throughout the perioperative period The patient received appropriate medication(s), safely administered during the perioperative period Acuity Level PACU I FT Entry 1 Start Time 06/12/21 13:11:00 Stop Time 06/12/21 13:48:00 Acuity Level Acuity Level I Last Modified By: Dolores De Leon RN 06/12/21 14:39:19 Finalized By: Dolores De Leon RN Document Signatures Signed By: Dolores De Leon RN 06/12/21 14:39 Normal [facility] Main OR Preoperative Recordo n 06-12-2021 Main OR Preoperative Record Holding Area Document Type FT Summary Primary Physician: Raman HENRY MD Finalized Date/Time: 06/12/21 11:42:13 Pt. Name: CATHERINE SHEIKH/Sex: 1960 Female Med Rec #: [id number] Physician: Raman HENRY MD Financial #: [id number] Pt. Type: O Room/Bed: / Admit/Disch: 06/12/21 11:31:54 - Institution: Case Times Holding FT Pre-Care Text: Verifies consent for planned procedure, identifies individual values and wishes concerning care, includes family members in perioperative teaching Secures patient's records' belongings, and valuables, maintains patient's dignity and privacy, and maintains patient confidentiality Entry 1 In Holding 06/12/21 11:36:00 Outcomes Met? Yes Last Modified By: Rosie Bravo RN 06/12/21 11:36:56 Post-Care Text: The patient participates in decisions affecting his or her perioperative plan of care The patient's right to privacy is maintained Surgery Checklist FT Entry 1 Patient Birthday, ID Band Procedure History and Physical, Identification: Check, Patient Verification: Surgical Consent, With Participation Patient NPO after Midnight: No Personal Items: Glasses, Jewelry Personal Items 2 rings, ear rings Limitations: none Comment: Complaints of Pain: No Operative Site n/a Marking: Availability Equipment Verified: Does Patient Smoke No Patient states Yes Comment - Adult spouse postop adult Supervision supervision available Case Cancelled in No Holding Area see comments below for reason Last Modified By: Rosie Bravo RN 06/12/21 11:42:08 General Comments: NPO after prep completed around 0730 per patient. RHRN Finalized By: Rosie Bravo RN Document Signatures Signed By: Rosie Bravo RN 06/12/21 11:42 Normal [facility] Monitor Recordon 06-12-2021 Monitor Record [id number]. [id number]:[id number] Normal [facility] Outpatient Surgery Discharge Instructionon 06-12-2021 Outpatient Surgery Discharge Instruction [place] [id number] Patient Discharge Instructions PERSON INFORMATION Name: NIKKY SHEIKHCY Date of : 1960 Current Date: 06/12/2021 13:10:48 PHYSICIANS Admitting Physician: MARTÍN ARMAS Camargo Discharge Diagnosis: Esophageal inlet patch CATHERINE SHEIKH has been given the following list of follow-up instructions, prescriptions, and patient education materials: PATIENT FOLLOW-UP INFORMATION Diet: Regular Discharge Activity: Resume normal activities in 24 hours Discharge Restrictions: No driving for 24 hrs, Do not operate machinery or tools, Do not make important decisions for 24 hours IF UNABLE TO CONTACT YOUR PHYSICIAN AND YOU FEEL IT IS AN EMERGENCY, GO TO THE NEAREST EMERGENCY ROOM OR CALL 911 I, CATHERINE SHEIKH, have received the attached patient education materials/instructions and have verbalized understanding: May we do a follow up call? Yes No I was present when discharge instructions were given Patient Signature Date Clinican/Nurse Signature ___ Date Follow up: Pharmacy Information: [facility]- You may receive a survey from [employer] asking you to rate your care experience. Your feedback is important and will help us understand what we do well and how we can improve the quality of care we provide to you, your loved ones and our community. It?s an honor to serve you. Thank you for choosing [facility] HERE ARE THE MEDICATION CHANGES THAT OCCURRED DURING YOUR HOSPITAL STAY Medications to Continue Taking That Have Changed Other Medications START: multivitamin (Multi Vitamin+) 1 tab By Mouth every day. Medications to Continue with No Changes Other Medications atorvastatin (Lipitor 10 mg Tab) 1 Tablets By Mouth every day. levothyroxine (levothyroxine 75 mcg (0.075 mg) Tab) 1 Tablets By Mouth every day. omeprazole (omeprazole 40 mg Cap-DR) 1 Capsules By Mouth every day. PATIENT EDUCATION INFORMATION Instructions: [facility] Patient Education - Texton 0 06-12-2021 Patient Education - Text [facility] Progress Note-Physicianon Progress Note-Physician Patient: CATHERINE SHEIKH Age: 60 years Sex: Female : 1960 Associated Diagnoses: None Author: Albert Dunbar JR, DO Postoperative Information Post Operative Note: Post Anesthesia Care Unit. Anesthetic utilized: General, Monitored anesthesia care. Health Status Allergies: Allergic Reactions (Selected) No Known Allergies No Known Medication Allergies Current medications: (Selected) Inpatient Medications Ordered Lactated Ringers IV Mary 1000 mL 1,000 mL: 1,000 mL, IV, 100 mL/hr, Routine, Start date 06/12/21 13:16:00 EDT, 10 hour(s), Total volume (mL): 1,000, 101.2 kg, 2.16, m2 Sodium Chloride 0.9% IV Mary 1000 mL 1,000 mL: 1,000 mL, IV, 20 mL/hr, Routine, Start date 06/12/21 6:53:00 EDT, 50 hour(s), Total volume (mL): 1,000, 101.2 kg, 2.16, m2 Documented Medications Documented Lipitor 10 mg Tab: 10 mg = 1 tab(s), Oral, Daily, # 30 tab(s), Refills(s) 0, High cholesterol Multi Vitamin+: 1 tab, Oral, Daily, Refill(s) 0, Prophylaxis levothyroxine 75 mcg (0.075 mg) Tab: 75 mcg = 1 tab(s), Oral, Daily, Refills(s) 0, Thyroid omeprazole 40 mg Cap-DR: 40 mg = 1 cap(s), Oral, Daily, # 30 cap(s), Refills(s) 0, Control of stomach acid Problem list: No problem items selected or recorded. Physical Examination Intake and Output Denies significant n/v and is tolerating p.o. Vital Signs (last 24 hrs) Last Charted Resp Rate 19 br/min (JUN 12:) SBP 120 mmHg (JUN 12) DBP 62 mmHg (JUN 12:) SpO2 96 % (JUN 12:) Weight 101.2 kg (JUN 12 06:00) Height 166 cm (JUN 12 06:00) BMI 36.73 (JUN 12:) Pain assessment: Pain Assessment 06/12/2021 13:11 EDT Pain Symptoms Self Report No, able to self report . Respiratory: Adequate air exchange with confucianism of preoperative function.. Cardiovascular: Cardiovascular function is stable and has returned to preoperative levels.. Neurologic: Pt has returned to preoperative baseline.. Review / Management Condition: Stable. Assessment Anesthetic outcome No anesthetic complications noted. Plan Transfer/ Discharge: Patient can be discharged from PACU when criteria met. Condition good. Normal [facility] Comment on above: Result Comment: Elec tronically Signed By: Albert Dunbar JR, DO\.br\Date and Time Signed: 06/12/21 14:43 EDT Progress Note-Physician Patient: CATHERINE SHEIKH Age: 60 years Sex: Female : 1960 Associated Diagnoses: None Author: Albetr Dunbar JR, DO Postoperative Information Post Operative Note: Post Anesthesia Care Unit. Anesthetic utilized: General, Monitored anesthesia care. Health Status Allergies: Allergic Reactions (Selected) No Known Allergies No Known Medication Allergies Current medications: (Selected) Prescriptions Prescribed Plenvu oral powder for reconstitution: See Instructions, 1 EA, Refill(s) 0, PER PHYSICIAN INSTRUCTIONS, [facility], 166, cm, 04/23/21 9:16:00 EDT, Height/Length Dosing, 101.2, kg, 04/23/21 9:16:00 EDT, Weight Dosing Documented Medications Documented Lipitor 10 mg Tab: 10 mg = 1 tab(s), Oral, Daily, # 30 tab(s), Refills(s) 0, High cholesterol Multi Vitamin+: Refill(s) 0, Prophylaxis omeprazole 40 mg Cap-DR: 40 mg = 1 cap(s), Oral, Daily, # 30 cap(s), Refills(s) 0, Control of stomach acid Problem list: No problem items selected or recorded. Physical Examination Intake and Output Denies significant n/v and is tolerating p.o. No qualifying data available Respiratory: Adequate air exchange with confucianism of preoperative function.. Cardiovascular: Cardiovascular function is stable and has returned to preoperative levels.. Neurologic: Pt has returned to preoperative baseline.. Review / Management Condition: Stable. Assessment Anesthetic outcome No anesthetic complications noted. Plan Transfer/ Discharge: Patient can be discharged from PACU when criteria met. Condition good. Normal [facility] Comment on above: Result Comment: Elec tronically Signed By: Albert Dunbar JR, DO eGFRon 06-12-2021 GFR/1.73 sq M.predicted among blacks MDRD (S/P/Bld) [Vol rate/Area] mL/min/{1.73_m2} Normal >=59 [facility] Comment on above: Order Comment: Order added by Discern Expert. Result Comment: eGFR is race adjusted. AA=. Performed By: #### [id number] ####[facility] [id number] [place] [address] GFR/1.73 sq M.predicted among non-blacks MDRD (S/P/Bld) [Vol rate/Area] mL/min/{1.73_m2} Normal >=59 [facility] Comment on above: Order Comment: Order added by Discern Expert. Result Comment: Nuclear Reactor Technician precious kidney disease could be indicated at eGFR's of less than 60 mL/min/1.73m2. Kidney failure is indicated at less than 15 mL/min/1.73m2. Performed By: #### [id number] ####[facility] [id number] [place] [address] Progress Note-Physicianon Progress Note-Physician Patient: CATHERINE SHEIKH Age: 60 years Sex: Female : 1960 Associated Diagnoses: None Author: Albert Dunbar JR, DO Preoperative Information Anesthesia history: Patient History: Pt./ family denies any personal or family hx of problems/difficulties with anesthesia.. Re-eval prior to induction: Inital eval reviewed: No significant interval change, NPO 10 hours, except for GI. prep which ( when administered ), was completed at least 4 hours prior to the procedure.. Anesthesia results Review of Systems Constitutional: See nursing assessment.. Cardiovascular: Cardiac risk assessment performed. Pt. denies any significant change in their cv hx.. Respiratory: Pt. denies any signicant change in their respiratory status.. Neurologic: Pt. denies any acute neurological changes.. Health Status Allergies: Allergic Reactions (Selected) No Known Allergies No Known Medication Allergies, Allergies (2) Active Reaction No Known Allergies None Documented No Known Medication Allergies None Documented Current medications: (Selected) Prescriptions Prescribed Plenvu oral powder for reconstitution: See Instructions, 1 EA, Refill(s) 0, PER PHYSICIAN INSTRUCTIONS, [facility], 166, cm, 04/23/21 9:16:00 EDT, Height/Length Dosing, 101.2, kg, 04/23/21 9:16:00 EDT, Weight Dosing Documented Medications Documented Lipitor 10 mg Tab: 10 mg = 1 tab(s), Oral, Daily, # 30 tab(s), Refills(s) 0, High cholesterol Multi Vitamin+: Refill(s) 0, Prophylaxis omeprazole 40 mg Cap-DR: 40 mg = 1 cap(s), Oral, Daily, # 30 cap(s), Refills(s) 0, Control of stomach acid, No qualifying data available Problem list: No problem items selected or recorded., No qualifying data available Histories Past Medical History: No active or resolved past medical history items have been selected or recorded. Family History: No family history items have been selected or recorded. Procedure history: No active procedure history items have been selected or recorded. Social History Social & Psychosocial Habits Tobacco 04/23/2021 Tobacco Use: Former smoker, quit more Type: Cigarettes . Physical Examination No qualifying data available Airway: Normal oral/pharyngeal anatomy.. Respiratory: Adequate air exchange.. Cardiovascular: Adequate perfusion and function. Review / Management Results review: No qualifying data available . Plan [place] [employer]esthesi[employer] (ASA) physical status classification: Class II. Anesthetic Preoperative Plan Anesthesia: Monitored anesthesia care and general anesthesia if required.. Anesthetic plan, risks, benefits, and alternatives discussed with the patient and/or family. Pt. and/or family present and agree to proceed as planned.. Discussed the importance of abstaining from tobacco products, and offered counseling if desired.. Normal [facility] Comment on above: Result Comment: Elec tronically Signed By: Albert Dunbar JR, DO.wes\Date and Time Signed: 06/11/21 14:42 EDT Encounters Encounter Date Encounter Type Care Provider Facility Start: 12-16-2022 End: 12-17-2022 ambulatory SHAIKH Isaac CHAPIN Facility:[facility] Start: 09-24-2022 End: 09-25-2022 ambulatory SHAIKH Isaac CHAPIN Facility:[facility] Start: 05-13-2022 End: 07-09-2022 ambulatory FRANCIA DINH Facility:[facility] Start: 04-08-2022 End: 04-09-2022 ambulatory SHAIKH Isaac CHAPIN Facility:[facility] Start: 03-25-2022 End: 03-26-2022 ambulatory SHAIKH Isaac CHAPIN Facility:[facility] Payers Date Payer Category Payer Self-pay [id number] 1960 Unknown [id number] 2.16.84 [id number] 1960 Unknown [id number] 2.16.84 [id number] 1960 Unknown [id number] 2.16.84 [id number] 1960 Unknown [id number] 2.16.84 [id number] 1960 Unknown [id number] 2.16.84 [id number] Unknown [id number] Unknown [id number] 2.16.84 [id number] Clinical Note 04-08-2022 Note Date & Type Note Facility 04-08-2022 Note PROCEDURE: XR HIP LT 2 3V W PELVIS COMPARISON: None. HISTORY: Anesthesia of skin FINDINGS: BONES:No acute fracture or dislocation. Moderate bilateral hip osteoarthropathy with joint space narrowing and marginal osteophyte formation. Degenerative spondylosis of the spine. Enthesopathic spurring bilateral femur greater trochanters SOFT TISSUES:Negative. No visible soft tissue swelling. EFFUSION:None visible. OTHER: Negative. IMPRESSION: Moderate osteoarthritis Electronically authenticated by: MAKENZIE GOLDMAN Date: 2022-04-08 17:50 [facility] Clinical Note 10-09-2021 Note Date & Type Note Facility 10-09-2021 Note Chief Complaint consultation for abdominal pain, vomiting, nausea HPI Staff 61 year old female presents on consultation from Dr. Chapin for diffuse abdominal pain with occasional right upper quadrant pain and nausea with vomiting. Denies loose stools or diarrhea. Omeprazole changed to Protonix 08/15. Patient felt this worsened symptoms and requested this be changed back to Omeprazole. No known food triggers. Symptoms have currently resolved. RUQ US completed 06/25/21 with cholelithiasis. Colonoscopy and EGD completed 06/12/21. History of Present Illness 61 yo female with h/o hypothyroidism, hypercholesterolemia, chronic GERD, referred by gastroenterology for upper abdominal pain and cholelithiasis; recent EGD and colonoscopy; stomach pain improved with omeprazole; was having intermittent upper abd pain, sharp, ache, some nausea/emesis; occurs after eating; was lasting minutes to hours; no bowel changes; recent US with multiple gallstones, no GB wall thickening, no ductal dilation; no symptoms last several weeks; no h/o jaundice or pancreatits; +fmhx of biliary disease; no asa or NSAID use; no tobacco use. Review of Systems PHQ Score Initial Depression Screen Score: 0 ROS - Provider Constitutional: no fever, no sweats, no weight loss. Eyes: no glasses, no blurred vision, no visual loss. ENMT: no dentures, no hoarseness, no swallowing difficulties, no hearing loss, no ear infection(s), no nose bleeds. Cardiovascular: normal blood pressure, no chest pain, regular heartbeat, no heart murmur. Respiratory: no shortness of breath, no cough, no asthma, no wheezing. Gastrointestinal: no nausea, no vomiting, no diarrhea, no constipation, no blood in stool, no change in bowel habits, yes abdominal pain, no hepatitis. Genitourinary: no kidney stones, no urine infection, no dysuria. Musculoskeletal: no pain, no weakness. Skin: no changing moles, no rash, no skin lumps. Neurologic: no seizures, no epilepsy, no headache. Psychiatric: no emotional or psychiatric problem. Heme/Lymph: no bleeding problems, no anemia, no blood clots, no transfusions. Allergy/Immunologic: no swollen lymph nodes/glands, no IV drug abuse. Other: Additional ROS info: Except as noted in the above Review of Systems and in the History of Present Illness, all other systems have been reviewed and are negative or noncontributory. Physical Exam Vitals & Measurements T: 36.3 ?C(Temporal Artery) HR: 76(Peripheral) RR: 16 BP: 112/80 HT: 166 cm HT: 166.0 cm WT: 100.7 kg WT: 100.7 kg BMI: 36.54 HEENT: normal conjunctiva, sclera clear, no scleral icterus, EOM intact, PERRLA, oral mucosa moist without lesions. Neck: trachea midline, no mass, symmetric, no thyromegaly or nodules, no adenopathy Respiratory: lungs CTA, respirations non labored. Cardiovascular: regular rate and rhythm, no murmur, no pedal edema or varicosities. Gastrointestinal: obese, soft, non distended, no tenderness, no masses, no palpable hernias, diastasis recti no, no hepatosplenomegaly; normal bs Lymphatic: no cervical adenopathy, Musculoskeletal: normal gait, digits and nails without infection, nodes, cyanosis, clubbing. Skin: no rashes, no lesions, no ulcers, no subcutaneous nodules, induration. Psychiatric/Neuro: oriented to time, place, person, judgement normal, affect appropriate for age, insight intact, no focal deficits. Tests: x-rays reviewed, review of old records completed, Discussed surgical options, risks, and possible complications with patient. Assessment/Plan 1. Symptomatic cholelithiasis (K80.20: Calculus of gallbladder without cholecystitis without obstruction) recommend elective cholecystectomy due to US findings and symptoms; informed consent obtained; patient wishes to hold off on surgery for now, and will call when she is ready to schedule; recommend low fat diet; call with problems/questions. Follow-up No qualifying data available Problem List/Past Medical History Ongoing BMI 36.0-36.9,adult Chronic GERD Hypercholesterolemia Hypothyroidism Osteoporosis Symptomatic cholelithiasis Historical GERD (gastroesophageal reflux disease) Procedure/Surgical History Colonoscopy (06/12/2021), Esophagogastroduodenoscopy (06/12/2021). Medications Fosamax 70 mg oral tablet, Oral, qWeek levothyroxine 88 mcg (0.088 mg) Tab, 88 mcg= 1 tab(s), Oral, Daily Lipitor 10 mg Tab, 10 mg= 1 tab(s), Oral, Daily Multi Vitamin+, 1 tab, Oral, Daily omeprazole 40 mg Cap-DR, 40 mg= 1 cap(s), Oral, Daily, 6 refills Allergies No Known Allergies No Known Medication Allergies Social History Alcohol - Denies Alcohol Use, 10/09/2021 Substance Abuse - Denies Substance Abuse, 10/09/2021 Tobacco Former smoker, quit more than 30 days ago Tobacco Use:. Cigarettes, 10/09/2021 Family History COPD: Father. Heart disease: Mother. Hyperlipidemia: Sister and Brother. Hypertension: Sister. Hypothyroidism: Sister. [facility] Comment on above: Result Comment: Elec tronically Signed By: KINZA ARMAS, Raymond Herrera.wes\Date and Time Signed: 10/09/21 21:37 EST Clinical Note 09-24-2021 Note Date & Type Note Facility 09-24-2021 Note Patient: CATHERINE SHEIKH Age: 60 years Sex: Female : 1960 Associated Diagnoses: None Author: Esteban Rose Results Review Original Procedure Date 06/12/2021 Revised repeat colonoscopy interval 5 years Adenomatous polyp(s) present 1 or 2 tubular adenomas less than 10mm Adenocarcinoma present No Serrated lesion(s) present No Hyperplastic polyp(s) present No [facility] History and physical note 06-13-2021 Note Date & Type Note Facility 06-13-2021 Note [id number]:127 [facility] Summary Purpose Family History No Family History Records FoundNo Family History Records Found Advance Directives No Advanced Directives Records FoundNo Advanced Directives Records Found Additional Source Comments INFORMATION SOURCE (unrecogn ized section and content) DATE CREATED AUTHOR 05/24/2022 [facility] DATE CREATED AUTHOR AUTHOR'S ORGANIZ ATION 12/20/2022 [facility] FOR RECORDS PERTAINING TO PATIENTS WHO ARE OR HAVE BEEN ENROLLED IN A CHEMICAL DEPENDENCY/SUBSTANCEABUSE PROGRAM, SOME INFORMATION MAY BE OMITTED. This clinical summary was aggregated from multiple sources. Caution should be exercised in using it in the provision of clinical care. This summary normalizes information from multiple sources, and as a consequence, information in this document may materially change the coding, format and clinical context of patient data. In addition, data may be omitted in some cases. CLINICAL DECISIONS SHOULD BE BASED ON THE PRIMARY CLINICAL RECORDS. [facility]. provides no warranty or guarantee of the accuracy or completeness of information in this document.
[2023-12-27 13:22] VITALS: BP 150/78; PULSE 77; RESP 18; TEMP 37.1; O2SAT 100; BMI 37.1
--- NOTE | 2023-12-27 13:37 | PC.NURSE ---
PT TO PRESENTS TO ER WITH RIGHT FACIAL SWELL THAT IS HOT TO TOUCH ND ITCHY. PT STATES REDNESS STARTED YESTERDAY AND HAS INCREASED IN SIZE SINCE YESTERDAY. PT HAS TRIED USING OVER THE COUNTER PAIN RELIEVER, ANTIHISTAMINE, AND ICE WITH IMPROVEMENT.
--- NOTE | 2023-12-27 14:07 | ED.SKABFB1 ---
HPI - Skin/Abscess/Foreign Bdy General Chief complaint: Skin/Abscess/Foreign Body Stated complaint: ABSCESS Time Seen by Provider: 12/27/23 13:38 Source: patient Mode of arrival: walk-in Limitations: no limitations History of Present Illness HPI narrative: The patient presented with a right sided facial erythema that she noticed yesterday after she started having some itching in the area. She does not recognize any insect bite but she mentioned that the itching also was this morning in addition to the redness she started putting cold compression. Denies any other complaints. She mentioned that she presented to an urgent care with a given antibiotic and mentioned that she should come to the emergency room Related Data Previous Rx's Medication Instructions Recorded alclometasone 0.05 % topical cream 1 applic topical BID PRN skin 12/27/23 irritation #45 grams cephalexin 500 mg capsule 500 mg PO TID 7 days #21 caps 12/27/23 Allergies Allergy/AdvReac Type Severity Reaction Status Date / Time No Known Drug Allergies Allergy Verified 12/27/23 13:22 Review of Systems ROS Status of ROS 10 or more systems reviewed and unremarkable except as noted in history and below [facility] Social History Smoking status: Never smoker Exam Narrative Exam Narrative: Nurses notes and vital signs reviewed and patient is not hypoxic. General: Well-appearing and in no apparent distress. Skin: Warm, dry, no pallor noted. No rash. Head: Normocephalic, atraumatic. Neck: Supple, non-tender. Eye: Pupils are equal, round and EOMI. No scleral icterus. The patient have erythema of the right side cheek not crossing the nasal bridge and there is a also limitation of the redness to the upper side of the right side of the face. Ears, Nose, Mouth, and Throat: TM are clear, no nasal mucosal hypertrophy. Oral mucosa is moist, no posterior oropharynx erythema, uvula is mid-line Cardiovascular: Regular Rate and Rhythm without murmur, gallop or rub. Respiratory: No accessory muscle use or respiratory distress. Lungs are clear to auscultation, no wheezing, rales or rhonchi Chest Wall: no tenderness Back: No midline thoracic or lumbar vertebral tenderness. No CVA tenderness Musculoskeletal: normal ROM, no calf or popliteal tenderness, no lower extremity edema/swelling GI: Abdomen is soft, non-distended. Normal bowel sounds. No masses appreciated. No tenderness to palpation. No rebound, guarding, or rigidity noted. Neurological: A&O x4. No cranial nerve dysfunction observed. No truncal ataxia. Moves all extremities. Sensation intact. Psychiatric: Cooperative and interactive. Normal mood and affect. Constitutional Vital Signs, click to edit/add: Last Vital Signs Temp 98.7 F 12/27/23 13:22 Pulse 77 12/27/23 13:22 Resp 18 12/27/23 13:22 BP 150/78 H 12/27/23 13:22 Pulse Ox 100 12/27/23 13:22 O2 Del Method Room Air 12/27/23 13:22 Course Vital Signs Vital signs: Vital Signs Temperature 98.7 F 12/27/23 13:22 Pulse Rate 77 12/27/23 13:22 Respiratory Rate 18 12/27/23 13:22 Blood Pressure 150/78 H 12/27/23 13:22 Pulse Oximetry 100 12/27/23 13:22 Oxygen Delivery Method Room Air 12/27/23 13:22 Temperature 98.7 F 12/27/23 13:22 Pulse Rate 77 12/27/23 13:22 Respiratory Rate 18 12/27/23 13:22 Blood Pressure 150/78 H 12/27/23 13:22 Pulse Oximetry 100 12/27/23 13:22 Oxygen Delivery Method Room Air 12/27/23 13:22 MDM - Skin/Abscess/Foreign Bdy MDM Narrative Medical decision making narrative: The patient presenting with erythema to the right side of the face mostly secondary to cellulitis with possible contact dermatitis as well. The patient will be treated with the Keflex in addition to clindamycin and low potency steroid cream. The patient was instructed about the importance of monitoring her symptoms and making sure that her symptoms will resolve and respond to treatment within 24 hours The patient is to follow up with primary care physician in next 2-3 days or to return to the emergency department should any of the signs or symptoms worsen or new symptoms develop. The patient agrees with the following Diagnosis and Treatment plan and the patient will be discharged home. Discharge Plan Discharge Chief Complaint: Skin/Abscess/Foreign Body Clinical Impression: Cellulitis Qualifiers: Site of cellulitis: unspecified site Qualified Code(s): L03.90 - Cellulitis, unspecified Contact dermatitis Qualifiers: Contact dermatitis type: unspecified Contact dermatitis trigger: unspecified trigger Qualified Code(s): L25.9 - Unspecified contact dermatitis, unspecified cause Patient Disposition: Home, Self-Care Time of Disposition Decision: 14:19 Condition: Good Mode of Transportation: Private Vehicle Prescriptions / Home Meds: New cephalexin 500 mg capsule 500 mg PO TID 7 Days Qty: 21 0RF alclometasone 0.05 % cream 1 applic topical BID PRN (Reason: skin irritation) Qty: 45 0RF Instructions: Contact Dermatitis (DC), Cellulitis (ED) Stand Alone Forms: Portal Instructions Referrals: Shaikh Chapin MD [Primary Care Provider] - 1 week Discharge Date/Time: 12/27/23 14:36
[2023-12-27] MEDS: CEFTRIAXONE 1,000 MG, LIDOCAINE HCL/PF 2.1 ML IM (14:30)
[2023-12-27] MEDS: PREDNISONE 20 MG TABLET 40 MG PO (14:30)
== END 2023-12-27 14:36 | disposition home or self-care (01) ==
PROVIDERS: Emergency Provider Emergency Medicine; PCP Internal Medicine
DX: L03.211 Cellulitis of face (principal); L25.9 Unspecified contact dermatitis, unspecified cause
CPT/HCPCS: 96372; 99284; J0696; J7512

== ENCOUNTER 2024-02-02 11:58 | Outpatient (OUT) | payer OTHER, SELFPAY ==
--- NOTE | 2024-02-02 12:18 | XR_ITS ---
The [address] [address] Patient Name: JUNI HODGES MRN: [id number] date: 1960 Sex: F Assigned Patient Location: [facility] Current Patient Location: [facility] Accession/Order Number: [id number] Exam Date: 02/02/2024 12:22 Report Date: 02/02/2024 13:08 At the request of: SHAIKH VALENTE Procedure: XR chest 2V EXAM: XR chest 2V HISTORY: non-recurrent acute supportive otitis media both ears . Wheezing and coughing COMPARISON: None. TECHNIQUE: Upright PA and lateral chest x-ray FINDINGS: The heart is not enlarged and the vasculature is not distended. A very small amount of atelectasis or infiltrate is seen at both lung bases. The mid and upper lungs are clear. There is no evidence of an effusion or pneumothorax. The osseous structures are grossly intact. XR/XR chest 2V IMPRESSION: A small amount of atelectasis or infiltrate is seen at the lung bases. There is no evidence of overt cardiac decompensation. Direct comparison with a previous study would be helpful in determining the chronicity of these findings. Electronically authenticated by: OTONIEL PRATT Date: 02/02/2024 13:08
--- OUTSIDE RECORDS SUMMARY | 2024-02-02 12:20 | XMS_ITS | CCD ---
Author Organization [facility] Care Team Providers Care Specialties Operator Name Role Phone FAWWAD, VAIL H Attending Unavailable FAWWAD, VAIL H Admitting Unavailable WEST, DR MAKENZIE Lackey Consulting Unavailable FAWWAD, VAIL H Primary Care [...] Attending Unavailable FAWWAD, VAIL H Admitting Unavailable CARLA BLAND Attending Unavailable SANTOWAD, VAIL Attending Unavailable DEBORAH GIPSON Attending Unavailable DEBORAH GIPSON Referring Unavailable Medications Current Medications Medication Drug Class(es) Dates Sig (Normalized) Sig (Original) alendronic acid 70 mg oral tablet (1 source) Bisphosphonate Start: 12-27-2023 Alendronate Active MG PO December 27, 2023 12:00am atorvastatin 10 mg oral tablet (1 source) HMG-CoA Reductase Inhibitor Start: 12-27-2023 take 10 mg by mouth once daily Atorvastatin Active 10 MG PO Daily December 27, 2023 12:00am calcium carbonate 1250 mg / cholecalciferol 0.01 mg oral tablet (1 source) Vitamin D Start: 12-27-2023 take 1 tablet by mouth once daily Calcium Carbonate-Vitamin D3 (Oyster Shell Calcium-Vit D3) 500 mg-10 mcg (400 unit) tablet Active 1 TAB PO Daily December 27, 2023 12:00am clindamycin 300 mg oral capsule (1 source) Lincosamide Antibacterial Start: 12-27-2023 take 300 mg by mouth every eight hours Clindamycin Hcl Active 300 MG PO Q8H 21 7 December 27, 2023 12:00am levothyroxine sodium 0.1 mg oral tablet (1 source) l-Thyroxine Start: 12-27-2023 take 100 ug by mouth once daily Levothyroxine Active 100 MCG PO Daily December 27, 2023 12:00am Problems Active Problems Problem Classification Problem Date [...] Test Name Value Interpretation Reference Range Facility XR CHEST 2 VIEWSon XR CHEST 2 VIEWS EXAM: XR CHEST 2 VIE WS DATE:01/26/2024 1:06 PM CLINICAL HISTORY: cough. COMPARISON: None available. TECHNIQUE: Upright PA and lateral radiographs of the chest were obtained. FINDINGS: There is no significant pulmonary infiltrate, cardiomegaly, pleural effusion, vascular congestion, pneumothorax, or displaced fractures identified. IMPRESSION: NO EVIDENCE OF ACTIVE CARDIOPULMONARY DISEASE. ELECTRONICALLY SIGNED BY: Shahid Singh MD Normal Not Available CT CHEST WO CONon 12-16-2022 CT CHEST [...] by: SHAHID MOLINA Date: 2022-12-16 14:13 Normal [facility] VICKEY - VITAMIN Don 12-16-2022 VIT D 25-OH 28.8 ng/mL Normal [facility] Comment on above: Performed By: #### D ATVITD #### [facility] [address] [place] [address] Dr. Emmanuel Hillman VIT D RANGES SEE BELOW Normal [facility] Comment on above: Result Comment: <20 ng/mL Vit D deficient 20 - <30 ng/mL Vit D insufficient 30 - 100 ng/mL Vit D sufficient >100 ng/mL Potential Toxicity Performed By: #### D ATVITD #### [facility] [address] [address] [address] Emmanuel Hillman GLYCOHEMOGLOBIN A1Con 2022 ADA RECOMMENDATION SEE BELOW Normal [facility] Comment on above: Result Comment: ADA RECOMMENDED LIMIT 4.0 - 6.0 ADA THERAPEUTIC TARGET < 7.0 ACTION SUGGESTED > 7.0 Performed By: #### D ATA1C #### [facility] [address] [address] [address] Emmanuel Hillman Glucose [Mass/Vol] 108 mg/dL Normal [facility] Comment on above: Performed By: #### D ATA1C #### [facility] [address] [address] [address] Emmanuel Hillman HbA1c (Bld) [Mass fraction] 5.4 % Normal 4.5-6.2 [facility] Comment on above: Performed By: #### D ATA1C #### [facility] [address] [address] [address] Emmanuel Hillman LIPID PROFILEon 12-16-2022 CHOL-HDL RATIO NORM SEE BELOW Normal [facility] Comment on above: Result Comment: 3.3 - 4.4 LOW RISK 4.4 - 7.1 AVERAGE RISK 7.1 - 11.0 MODERATE RISK >11.0 HIGH RISK Performed By: #### L IPID, TSH, LIVER #### [facility] [address] [address] [address] Emmanuel Hillman Cholesterol [Mass/Vol] 148 mg/dL Normal <=200 [facility] Comment on above: Performed By: #### L IPID, TSH, LIVER #### [facility] [address] [address] [address] Emmanuel Hillman Cholesterol in HDL [Mass/Vol] 44 mg/dL Normal 40-60 [facility] Comment on above: Performed By: #### L IPID, TSH, LIVER #### [facility] [address] [address] [address] Emmanuel Hillman Cholesterol in LDL [Mass/Vol] 79.0 mg/dL Normal [facility] Comment on above: Performed By: #### L IPID, TSH, LIVER #### [facility] [address] [address] [address] Emmanuel Hillman Cholesterol.total/Cho lesterol in HDL [Mass ratio] 3.4 {ratio} Normal [facility] Comment on above: Performed By: #### L IPID, TSH, LIVER #### [facility] [address] [address] [address] Emmanuel Hillman HDL NORMAL > or = 60 mg/dl - LO W CARDIOVASCULAR RISK <40 mg/dl - HIGH CARDIOVASCULAR RISK Normal [facility] Comment on above: Performed By: #### L IPID, TSH, LIVER #### [facility] [address] [address] [address] Emmanuel Hillman LDL CALC NORMAL SEE BELOW Normal [facility] Comment on above: Result Comment: <100 mg/dl OPTIMAL 100 - 129 mg/dl NEAR OR ABOVE OPTIMAL 130 - 159 mg/dl BORDERLINE HIGH 160 - 189 mg/dl HIGH >190 mg/dl VERY HIGH Performed By: #### L IPID, TSH, LIVER #### [facility] [address] [address] [address] Emmanuel Hillman Triglyceride [Mass/Vol] 125 mg/dL Normal <=150 [facility] Comment on above: Performed By: #### L IPID, TSH, LIVER #### [facility] [address] [address] [address] Emmanuel Hillman VLDL CALC 25.0 mg/dL Normal [facility] Comment on above: Performed By: #### L IPID, TSH, LIVER #### [facility] [address] [address] [address] Emmanuel Hillman LIVER PROFILEon 12-16-2022 Albumin [Mass/Vol] 3.7 g/dL Normal 3.4-5.0 [facility] Comment on above: Performed By: #### L IPID, TSH, LIVER #### [facility] [address] [address] [address] Emmanuel Hillman Albumin/Globulin [Mass ratio] 0.9 {ratio} Normal [facility] Comment on above: Performed By: #### L IPID, TSH, LIVER #### [facility] [address] [address] [address] Emmanuel Hillman ALP [Catalytic activity/Vol] 69 U/L Normal 46-116 [facility] Comment on above: Performed By: #### L IPID, TSH, LIVER #### [facility] [address] [address] [address] Emmanuel Hillman ALT [Catalytic activity/Vol] 34 U/L Normal 14-59 [facility] Comment on above: Performed By: #### L IPID, TSH, LIVER #### [facility] [address] [address] [address] Emmanuel Hillman AST [Catalytic activity/Vol] 17 U/L Normal 15-37 [facility] Comment on above: Performed By: #### L IPID, TSH, LIVER #### [facility] [address] [address] [address] Emmanuel Hillman BILI, CONJUGATED 0.1 mg/dL Normal 0.0-0.2 [facility] Comment on above: Performed By: #### L IPID, TSH, LIVER #### [facility] [address] [address] [address] Emmanuel iHllman Bilirubin [Mass/Vol] 0.4 mg/dL Normal 0.2-1.0 [facility] Comment on above: Performed By: #### L IPID, TSH, LIVER #### [facility] [address] [address] [address] Emmanuel Hillman Globulin (S) [Mass/Vol] 4.3 g/dL Normal [facility] Comment on above: Performed By: #### L IPID, TSH, LIVER #### [facility] [address] [address] [address] Emmanuel Hillman Protein [Mass/Vol] 8.0 g/dL Normal 6.4-8.2 [facility] Comment on above: Performed By: #### L IPID, TSH, LIVER #### [facility] [address] [place], [place] [address] Dr. Emmanuel Hillman TSHon 12-16-2022 TSH 5.447 uIU/mL Critically high 0.358-3.740 [facility] Comment on above: Performed By: #### L IPID, TSH, LIVER #### [facility] [address] [place], [place] [address] Dr. Emmanuel Hillman MG MAMM SCREEN 3D MEKA CADon 09-24-2022 MG MAMM SCREEN 3D MEKA CAD Patient: CATEHRINE SHEIKH Exam Date: 09/24/2022 : 1960 Gender:F Ordering : SHAIKH Quintin CHAPIN . Admission #: [id number] Family : Order #: [id number] CLICK HERE TO VIEW EXAM RADIOLOGY REPORT [...] breast cancer at age 69. LOCATION: [facility] BREAST COMPOSITION: Scattered areas fibroglandular density. [...] Molina M.D. on 09/24/2022 at 13:35 Normal [facility] LIPID PROFILEon 03-25-2022 CHOL-HDL RATIO NORM SEE BELOW Normal [facility] Comment on above: Result Comment: 3.3 - 4.4 LOW RISK 4.4 - 7.1 AVERAGE RISK 7.1 - 11.0 MODERATE RISK >11.0 HIGH RISK Performed By: #### L IPID, TSH #### [facility] [address] [address] [address] Emmanuel Hillman Cholesterol [Mass/Vol] 149 mg/dL Normal <=200 [facility] Comment on above: Performed By: #### L IPID, TSH #### [facility] [address] [address] [address] Emmanuel Hillman Cholesterol in HDL [Mass/Vol] 44 mg/dL Normal 40-60 [facility] Comment on above: Performed By: #### L IPID, TSH #### [facility] [address] [place] [address] Dr. Emmanuel Hillman Cholesterol in LDL [Mass/Vol] 87.6 mg/dL Normal [facility] Comment on above: Performed By: #### L IPID, TSH #### [facility] [address] [address] [address] Emmanuel Hillman Cholesterol.total/Cho lesterol in HDL [Mass ratio] 3.4 {ratio} Normal [facility] Comment on above: Performed By: #### L IPID, TSH #### [facility] [address] [place] [address] Dr. Emmanuel Hillman HDL NORMAL > or = 60 mg/dl - LO W CARDIOVASCULAR RISK <40 mg/dl - HIGH CARDIOVASCULAR RISK Normal [facility] Comment on above: Performed By: #### L IPID, TSH #### [facility] [address] [place] [address] Dr. Emmanuel Hillman LDL CALC NORMAL SEE BELOW Normal [facility] Comment on above: Result Comment: <100 mg/dl OPTIMAL 100 - 129 mg/dl NEAR OR ABOVE OPTIMAL 130 - 159 mg/dl BORDERLINE HIGH 160 - 189 mg/dl HIGH >190 mg/dl VERY HIGH Performed By: #### L IPID, TSH #### [facility] [address] [address] [address] Emmanuel Hillman Triglyceride [Mass/Vol] 87 mg/dL Normal <=150 [facility] Comment on above: Performed By: #### L IPID, TSH #### [facility] [address] [address] [address] Emmanuel Hillman VLDL CALC 17.4 mg/dL Normal [facility] Comment on above: Performed By: #### L IPID, TSH #### [facility] [address] [address] [address] Emmanuel Hillman TSHon 03-25-2022 TSH 3.614 uIU/mL Normal 0.358-3.740 [facility] Comment on above: Performed By: #### L IPID, TSH #### [facility] [address] [address] [address] Emmanuel Hillman TSH RANGE SEE BELOW Normal [facility] Comment on above: Result Comment: <0.3 4 UIU/ml HYPERTHYROID 0.34-5.60 UIU/ml EUTHYROID >5.60 UIU/ml HYPOTHYROID Performed By: #### L IPID, TSH #### [facility] [address] [address] [address] Emmanuel Hillman [facility] October 11, 2021 SHAIKH VALENTE, [address] [place] [address] Re: CATHERINE SHEIKH Date of : 1960 Thank you for your referral of Catherine Sheikh who was seen on consultation for abdominal pain, Right upper quadrant pain and nausea with vomiting. I have enclosed my consultation note for your review. I will be happy to follow Catherine. Sincerely, Raymond Davalos MD General Surgery Normal [facility] Ambulatory Clinical Summaryo n 10-09-2021 Ambulatory Clinical Summary {[id number]}CD:[id number] Normal [facility] Gastroenterology Office/Clin ic Noteon 08-19-2021 Gastroenterology Office/Clinic Note Chief Complaint f/u EGD/Colon HPI Staff This is a 60 year old female who presents today for a follow up to EGD and colonoscopy. History of Present Illness The patient or their guardian verbally consented to allow [facility] [employer] [facility] to record this visit. Catherine Sheikh is [...] after patient consented to recording for virtual intensive care medicine specialist and provider reviewed before signing. ORALIA: Dona Ramires. Follow-up With When Contact (more content not included)... Normal [facility] Comment on above: Result Comment: Elec tronically Signed By: Dona Ramires R\.br\Date and Time Signed: 08/15/21 14:52 EDT\.br\Electronically Co-Signed By: Raman HENRY MD\.br\Date and Time Co-Signed: 08/19/21 09:50 EDT Reminderson 08-19-2021 Reminders - From: Raman HENRY MD To: [facility] - Clinical; Sent: 08/15/2021 13:23:07 EDT Show up: 08/15/2021 13:23:00 EDT Subject: Ambulatory Reminder repeat colonoscopy in 5 years Reminder/Recall Normal [facility] Coding Summary.on 07-12-2021 Coding Summary. CD:[id number] Gh 0bWw+PGhlYWQ+HF1QBQXuY 37jgDAsrM8YL3fIOY0VNHS PPFUPEX5CKN5pfAU5QSusL 2VybiAv MkzkhBDtTC41DWm1ELC0dQ wqIOiphL5xkAYuR3d3VjFs IN73iV20HMkgVUIqSyR3Yh ZpbjsgbWFy M3fgBwFlnUJkBor+PHRhYm xlIHdpZHRoPScxMDAlJyBz tUsnOG0zGm4fJRDrDCSslH xhcHNlOiBj j9esCLIkSIacRS0liUweC8 BksMV0UBLbj1k0Yi56yKH+ VBJfOQF0eMdxCIlhb618Ky Jhv3jxAKV4 bWXbYQioUDX0U45qa6P8CE NgFMChEHH7sSI4tU3gpMuc kpdcF5MkcCTnOjF3OZY5lC MvzW3xeCba awinpG0pFev+S46FVQ0YCR KSPA2JXum6C9LwRffktEE+ EC81JJAyLY29bSSjvAAzz9 oeiBh7AfJt LSToLGB2bVfhEAhkn9NjGT NyE86fiNXcn5T1MXHgtEiy tWNfGmUaoYH5mJ3kGXbpph pxl5krqrxn Qufzj9xzvr86eV14V90mVB qjWOAnTVN1AVEwLTCakRvs sh3pxQ5oOj5+VPsrj0vpd4 awkDu8EcTv IRKejhVjsFbvTVK4t2VqAn 99E4BuzLtyl8NjOoc5kb95 eFRzo9I6yNO0WAezWMUcgB 2aMTqoMmK8 SCHwVlHqxN56zYFpUFloVs 8vwOracYbjTB4wMTIyttur IPKyxW8tQYOheMZqpAzsSJ 4wNTBpbjtm k585RkQwSQD9PTDmkGJyF4 OcsW2xZtVoRGUjQXZbM9Zu eOKrBBjhJ152NQllTvM6FG WjciBvR5Ux XZZluDtaYpR6x0B6Gr5Bw6 AqbnqcGYU8GNoqCWR7VyI4 PdKyTeW1C4MzGja3BDFaqI pmWC8tI6Tv WUQycwggvvbnfTF0HBMxDE CilG13mAHgBLmmPj3kb7I1 j757TVUxCRMpoN70Kb7hdU ogMTBwdCBU cB9mwtcrk8gdvyryLhSxDJ NcAVs1DDy5JCKhbEahEwFo ZLQ7ZhP0ZPK4xNUjqK8ahF mkfzebhR2a Oyc+V64ewC6eCEZ6WRC4wv wgDFMiluSuGY30SD28G1Bd PjwvdGFibGU+PGRpdiBzdH tyCH9aXvKk d4vpj6BmNGscG5ZhYKBgDF ndPvh3XJPvCDM7lJA0sP6x ILOgXHsdw8X7nKY0D5Pnzb Sqwc5zf0hx OTBrXLtpN14eoYZdq2A6GO MmiDS9SHPtrDiySgYyiR47 Oyc+MTLimTmrd9PuPkfhb9 imu5yhlJa9 XtDyCIOzrkQmaTzvTME3u3 CkNn56Q66kZGvzXATuMZMe LXFrRSCdzRipgy6rnN7cFw 8+PGNvbCB3 zMD9zK3dHECvTtA3FNdrD7 71OhMsnHLxDralk5jom7ga uVo3EcOqCQCsfyEibCvlDU E5v0PpMg50 C56bGUfwHMRcIWBaGTGxMX QfgAotci7feN4yBv3+PC9j e3puty34iE39uUW+PHRkIH L5bPpxZTnx WBQchS2pGWsxMnG8ZILfPs OjwX24uTBpYRmaVh7uiQih eFysCX6lRCSfboxvp173Pp Pes4pvTAOq eEXbUPdjKKN2U11ay0V3HW TxOTCuNPU3kXF0eL6nfEol bjogbGVmdDsgdmVydGljYW qiSUwjR820 IHRvcDsnPlBhdGllbnQgTm AmNTd0M1CdGuc7BGQznYew UZ9rfQZiXJadEn4uoRojrG emCS0cNCJo afapl928RsVkd1szFATlpI ChLEyhZPQ3M16yn1A1RFMy YMOaUJD0gJA2bO7xyDwdnx ogbGVmdDsg ggBmoHjxGBcsVIyeQ398UJ RvcDsnPkJpcnRoIERhdGU6 MO99SD99kANfc9T8yBZ8R1 BhZGRpbmct msuxvQI0JBVeTITmoR69Vu 5ngDonEv1tNXQvFAW7LIRn eGIjU8MayS5cPrAlAHDrJO AgK2EsqOLv MVguO208RGehYzV4REJhqk XpA5QkDTAnyBowXaD5t4H5 Uj4FH6Y7JB51LF56jCDgt0 U0eMI8L6Tm WRNhwfzmwvmfgNM4BOMpSD OrcB31Kb0wsJpuIm6rJZZi ZOX6RUUwgFIhP6UvuA0aMd AjMDAwMDAw R0ZhhJKjFBitU216IScmDu F3UIDofjImG5JaOORjfGmp VqH0f5S2Xg4TMHj5HL35HV 62eXJif0B8 wNF4P8WyAELxgujqpdqznA G8BIKwFLSvtH15Pd8vsMga Mw0mKRQlSEH9OTRtcQStG6 UptK3aRtKn XARgWSNjB0XolQKdCNfjR3 71PCljGuE7ZZBckxPoU8Xm CTGchAtiNzJ9r5W4Cu7VRK JrJJ95GBP3 uKT0WL79KK10O2VzSiesfX FibGU+PHRhYmxlIHdpZHRo JIixYLFyYyXvcFeyUX0rDr 9yZGVyLWNv xJlocSGxBwQxm5tnNKHrKU apMI7yqZptI3JdfHE6XVIe o8g5Yp63D70aO2WlhGE+PG IavQJ3lLY2 jM4gZdBzEjX6YMxwY005Yi QejOHzSduwj2sdc2csmIn9 RiH5WUGnhgFxoZueOWC5q5 GgTi54E71g IHdpZHRoPSIxNSUiIHZhbG qzrq4qwJ1xBp4+PGNvbCB3 wYQ7xQ6bTjQcDdX4DYopK8 49InRvcCIv Qvplt2iim1aliJq0KrXiFQ QedoMojSxnNTL9x7TtJs57 V1ZgdYfnn3IdQbl8rj26sL Jlz9H6uJO2 P0VqIEFsaqxsdFMisNiwNO 7wJQBhprjvVVYycW9lYYIn Q7l0IlApPjY3BKiqD1Pucy Q9ZPXwfSGo HEawXWL6J92qa0C3NXCcRP AiIHV6xSQ8pQ3etFiadytq bGVmdDsgdmVydGljYWwtYW djH879SZSu cSevCDJoeQ7hVIVeaWSbmY vpPC3qTVIboyubIcVAP7gc QH1XCdWWCZ69UX05bNXfn7 O6yFJ4J9Xq DBVpstxuifkxqKN1YBSsGQ WuzL98aFQmJRccXi5ew5S9 d150VSHwTPIklK55Aq1ayN ogMTBwdCBU dG0eltdwo2sscfezOvJjRE YyJQu3PXr0ZVLsuWaoLmHj JMR0FoQ6HKW9gDJlfS8guY qxumhryM0j Oyc+RLNeNLXcREt4DTyioQ Q+RQPhBPH1qGvkZOjnOUVd sW5jIEJwY6z4WwGcEeQ1DY zoW8GzCMSc imofHk29yC7qFxXtNdD0ZJ afS7NjtiZ6AQSxpTHeLRny TZO0K35bv7K0WALvUUBnPM U8zDN0cO0s bGlnbjogbGVmdDsgdmVydG etDEpfLDryV397WZPkqWjt WyBxFVwhFFDlJR15SG94jM Flq9L8yTD6 L8CsWLViqnbbudyqhTR6ZA SxCOHcdN89dFQyDTnjQe8l z0A7y820TYDkJTUshB56Cc 9udDogMTBw eAKRhV6eruzja6mpfvwwNs GqRRNaDKy3CCv9IRCysBxx JgWrBFR1OcB4IIP2qPGhiS 1hbGlnbjog wR5oPig+NdDmIJggOV03BD 92yWHjk3I7iXV6B2LoKAFs gfcixfhdxEV5OGBwFURatQ 47cGFkZGlu Vs5zr5V7t157VDYiFFDluM 43Ry8hoIewGZAbnISPnQ4z iitvh0okbrmqZzDtMQKqHZ g0FIk5FUHy wQikQqEpTRZ5UsD1CWF7wX CaqD0lsApewatykP8lAbj+ I1P0mJO4kCIacPjtjCO+PC 16os07Y0Np SvnuJjc8RRMkOFW9gID4pC 3gHVNoBWqtb1U2hNT8U4Hj gzBjxa4se3irDFEsZIchX8 5jkWIag0T0 COKdmHI7HLArdAagOkXlxH 93Oyc+YTVdkNziz0LyRdep s7lig0ovcWp0OvRiFWFhyq FsaWduPSJ0 e4UmSy02E78nITmrHJJwCX OtWUNxHUUwpCqhmc9dlQ4u Ii8+PEUeqPX1zZJ6bV3pHb BePvP7QWsq K551HrJqpPOuEpxsc3idw0 mieNi7QaPjOVAidnRpiJzf NEI0k2AzLl67Q3UqgSujk6 PlPbc0ge12 uYFkr2Y3jOS6O4YyDLOzdj wzwTXltYvaXM8mPQUphlab WOGrgP7bCTHfZ2o9BqBhBg N1OXldT4Nf xpC6OWHijYAfORVmqPKJpK 2lakvpe7fkkxnqXtJtZHBz KAv1MDg6FPJsyXfcEnUxMA U0OgZ5AZF8 iSEpqP0foHelqltkdO8qWm c+UKt9j2mcsPNoUL4wzLL6 TO22ZD31rOCjy4T8bLU8S2 BhZGRpbmct kehfcCX1SNXyZWTpiI04Im 5xzYlzFw7zLMWwKQP6BSTt hZXvS6XfhA6sWtAoGKKdXJ YoZ7UgfUZq PWgdU762KRceNpZ7GQEcvj TgL6AdYKOibKsnUfS5c7I6 Mw6HGZ66YQ08GY62gXEoc2 V6yNM8K7Vd QZKkzenbouftvDP0KRSlBP MdoM33Xd3yaShyWc2gEJGn UDU8QWVweVEqB8YopH7lBk AjMDAwMDAw L7ZotOTtDRqjW306JFykEw K0QZJpxeNnW2IbHGPdzPkc ZoR6b8S4He6JVw09RB82ZC 22iSZas6M9 yGZ5T1KrZFOpuhggsdlfjC D5OJTjJKTrbN75Cc2crIss Jh7qVBHwXIO1HDDrnJCzA7 IdaW2dWfQh WEJdYBQwY9AxvFIgXFozA5 01ZAnhZzA9UMUyipHtO9Fa HXPevBhbZpH1x7R2Bh0XLJ gzqqx1Q7Pg PjwvdHI+GT78ZSKuOB22dB QmyWFxq7yhqAy9YsWhUYEo XQK5hZdpFSauz0ZeKNMdY4 0vrOVmd8E4 IGNv (more content not included)... Normal [facility] US Abdomen, Limitedon 2020 US Abdomen, Limited [...] Singh MD Transcribed by: VIRGIL Technologist: CARRIE [facility] Consent for Treatmenton 06-03 Consent for Treatment [id number]#1.0 0CD:127 [facility] IntraOperative Documentson 0 06-25-2021 IntraOperative Documents [id number]#1. 00CD:127 [facility] Postoperative Documentson Postoperative Documents [id number]#1.0 0CD:127 Normal [facility] Coding Summary.on 06-17-2021 Coding Summary. CD:[id number] Gh 0bWw+PGhlYWQ+RS8IHCUdL 04huNYxqD3OX2cNHO3WPBV YGBZMGZ9KBU5xyWW4GQxzZ 2VybiAv ZkprkASiED76NUj2PHT5zM jzXOqaiM2dcPDmD9c8XwJb UT62gV93BHfuVGXhAbR5Sb ZpbjsgbWFy M1dzHsYpkRJhFmk+PHRhYm xlIHdpZHRoPScxMDAlJyBz jZznRZ1zPf2sMQXoXBZyiE xhcHNlOiBj i0frZDEwVYezXK2foTcbY7 IorDX6ULQlo3x9Oh65yQE+ NGFlICY5oEkdJDoui933Wh Njf6vqSWN3 oKAzOJfmMGZ4I12na7A9SX OgEOWbVVC8rXI2jI2wiHjb lkihS0CalARqZgR3DHR2mU YqtC3niPck fxialZ8tAmt+T98XIN7VRG TWQE2DQer5E3PfTgoobPA+ ZL75DDOrQQ21bILgmQQyi7 refTe8AoIs LEPhTIO6rVtwCGwod9DfKS VhU93haLBff0I3PTVgcNkm pVPeVuQfsAO6dX0mAVnlqr nsj4siyxyv Mxfrq0xplo67mC45M93uET qeLCOaDFH2GGVzBXImsGgb kk5htU6xMf9+YOhrp4uap0 qsfRv9FeQg KJUlotCdaIsiEQJ8m8MbDi 33Y2BqtOqes8VjGni3tz09 iTVma7H0fLE0NHqkXXQbeK 6hZXtiFiD5 DCZnYfYbwF24mPMvEAmlDk 5wtWfqtPrePS7xIDIxwvwg UFUbuJ8xTDZjxSDccLbgGM 4wNTBpbjtm d792OrLjSXA0RUMajSOdS1 WfzN1oJoFiDDMdVJSqK1Tg oDMbOWsuW845PSkxBrQ3GW EwnlBsW2Lu HGChiIziDuL8r9U3Ys3Vi8 StedayEIW1XVpsSUY3ElD3 IxFgGsR2S6XrSxq2BXUckO tnUS1xW6Hb MASxkcblcpzsaPB7FPMaVG YflH02tZZzLOesQq5xo3P2 o991JEMuDRVwpB62Lz2vkX ogMTBwdCBU qX0tiljnc8frtnusNvJlBP DeGCj8ZQr9ZHKswPidIyHu XJB7DqO8VHG0pEJiwM3bsZ meieawhE9r Oyc+L23buL1sREN3UFT5ad mdXFSgefHhLL57MK54N6Mm PjwvdGFibGU+PGRpdiBzdH uwPH8eOtFa d9utm9AoBOwbH5SkATTiCS ftNrj2FYUzLMN1wHG1qR4s FSWeBMsso0I8dHM3V5Cpmv Cskg1fc7km CPKkIPgjH38yjXFqb6T5LC VptLL3DOSkhEijLfPlrM36 Oyc+IDJraRzqb8QjSmune4 nci5qfwBh0 EbSaSDVxymMwdLypPPU0n7 TuBy30K72rCIwhPNSaSNXk LISyQBTfbVtfdy1xpM1lVz 8+PGNvbCB3 qKR8mU1mKUCeEkZ6LDsbI6 40BpUmoNRcDqszi3sgt3mx yGe2WxXhGFHvpvJukAtnAL Q4e4YdRc03 Y59bVIwmERFsVFWtBYMdXI JnySomhl3jiE2zGa2+PC9j b7qdcl53zU32gJB+PHRkIH X0xMenLFxa BIXmlE9uNEqtZpY7TKTnRa JwsW99cFSwYMefYj1wgMdo wJbwCR2aFXEmkqvac204Oq Qgm5lmDXNh qJXvMHwiVHV6P47gz4N1WV IkYJQgBLA5uRV8dV7gjFeu bjogbGVmdDsgdmVydGljYW dnTUlfS750 IHRvcDsnPlBhdGllbnQgTm BaPEw5X1KtAzb8FYFixCau HF5drNDlZUnhEa2wyVqnrS vgXN5uHSJl hipdx348MuOhi1jrRNGznO MeVLlmKWL8H43jn4K6YHOv JVMgVWO1pAW2zH0vtDhdjx ogbGVmdDsg znIkrPwoLDmgFHjcF820GU RvcDsnPkJpcnRoIERhdGU6 HD48RO56tLQdy2K8xKQ2S8 BhZGRpbmct lfqqqIF8XUGnASGtjA01Xz 2lyMgfZg5dHLZfVQA8IIYe gXPaM7NfsL5sUdLfPWZkXU TqJ3YphCRg VUiqZ844OWieSgZ4HTFvxo EaE7LtNROvcQvuNmV1h9O8 Es9NK5W7VA18FO38tLJev4 A5wEQ4O2Op SGZjpdzngfssbYY0IMPhGR EbmG10Hj1jsMupSp5eMPJg TFZ0YNEcoUCdI5CdvR1aPt AjMDAwMDAw E8MjqNVySVumY972MCnfWr I9PBOdzfLgK1TiQMUmkVbj SsP9o6P4Lp5PMIr1MG55UN 56dEZdu4S6 oMT4L0UbPCXpuvakaohfhD D3MGKoDTKslZ55Fj6sjQap Kp9vIMYgNFZ3TPSnoFYtC8 SrcL3eDySe AUVcCVNkC5LbmVLrGZyvW7 78WHmdIsO3FTYinbIaE4Rw XESltGjcUyY0y7J2Df0WIF TxPL16XID9 vRU1MA53CE94N1DlVdgkeH FibGU+PHRhYmxlIHdpZHRo YBxaJDYhNvJxyBtpXT6dMr 9yZGVyLWNv aEmjkJCoOuZgl3qxVRObOD elWM3kmApuF0DobUQ8OGHl p3c7Hc72H49cM4HjwAW+PG UtvBF4uTM4 tE9nVfQiPbK1HMctW825Ev LxqTKcQvuvq8rob4wezBy6 MsG1FFInfhJkiWzyUHV6z9 FgQi87M49u IHdpZHRoPSIxNSUiIHZhbG ljyn8tfH6jDx5+PGNvbCB3 pTI2gM0fJwKyGvQ7NVzvV9 49InRvcCIv Bymte0std9ukgBa7JhVfOJ DynvFjqMlkTRI6w6YhUa92 V0UogMtkb6CpYwm5oe47cQ Ssf9Y2mPK0 J3LlKPAhmcaxwPErtSooZV 1hLUBljhltHCEqvM2ySDMy G1o8ItHrLpQ4NBqpC6Dmtj V6UYIouQVi CBiaZNL1X91xv1R1OOHhIU MlZDR6oRN1nJ7mxYwhnjjh bGVmdDsgdmVydGljYWwtYW ihJ453USXj tEboJUSgdZ0bWMTdbKHxmK mlFD9lMJZaqsylBmFGG4gk YC2XQeMORC15CN42kCDsn6 L7pNY1L7Xm RJTjepsyaeilsTX1DQApLW YspS78sYFpNCnxQa7kf4Y1 z246DYVpSPUvjD99Dh7zrM ogMTBwdCBU hW9zazhjh8ofvbkpUhPcKU OzKQj8LUe3HANaaHszCuAq ACG1XaV2VQL4yHMdhH6hlB zifhmhcL1u Oyc+PEUcEZHmOEf6RYwbwZ Q+TLDzTYA8gYftOFfoGKFl gE3rKBCcL1f9AtWzYhM0EG mjR5WlIBHt ggndDx63cF6tFpCfSfH5KW mgM1WcenJ6CPOmxBIzHKaq OPD3I14bo4W6DZZzQBAlQF J7zAL2cE5b bGlnbjogbGVmdDsgdmVydG wqSYypNQdlM847HPRjfCzz DmEuXSwwBJIeBK92DR76cF Zhv3L6mPQ0 Z1JkPBSpjdxjkogisBX0XX VnTGLmlH67rMQkSPkaMa5q i1A6l493QJIuDEGroB36Ur 9udDogMTBw lLVVgS5enkuyi6yyhgajDk DuCKHiNVm4KIj8MTHenTal SwXiERO1NiO9UNG5tDIdzM 1hbGlnbjog aI5mSdc+YtMkTBhoXV78AR 40cRQqr5O1eOX5K4UjXCKc uupucrfoyXR5EFIwLXXuaO 47cGFkZGlu Xc2tc8G7c846MORbWYIofP 49Vj8nuQeaAVCtnCMDsZ9l qbkwr7ukuoztCcWiTRIfCM x9DIj7FIPj yVgqQdAaDAU2AcZ3BQQ1yE HfcZ3bpCdaeopszI4nYct+ M9W5zKR2lKHqzIhyeAM+PC 03rd89B9Yv KgwjSpd1SFBjANO9zHV4wA 4jEAUsUIwpx9L1jGQ9U6Jb sxOceb8fl4nzBOAbTKppC4 5nkSVhc2K0 WUVsfMT8KLZskGheAqBjoQ 93Oyc+GTKpuZnle7GvFyjm s4uhh3qzvDs5IzOjGGXjyh FsaWduPSJ0 d7UfTz42S65gQUeoBZLzHE PxIRHdUNGkgTbuuy1pkO3e Ii8+CBOntRC2kTF7pW5fGf JhHyH2AKme Q789NkMqfWGtQuxjv9byt2 vqbBm2TuMqBBUvfqGdbUst CST0j3NzCz39O4OubFurs4 AfGtc0ag23 zADby8D7xCR0V1IiVIFbcp gadURqqEvbZG5sLJDdsfqr LVUzaA2eAGFrE4c0UtOgMo V5BUiwD1Lo lzY9GMQcuFCaBFVbyIDZwX 8fmnnwb7wjhizqNjYyZJFn FCy3DGb3YQDjtAkdDzRgFY P9BnF8BXF4 cPDzyZ6dnWgacovdqY7jIw c+SSo5y7jjgXTsFE7xzZO9 GQ20WJ93eHEui5E2aJP8A5 BhZGRpbmct takivFB4TZUgHLHrjV35Rb 8xtLbnMr4fSIJoSAU0MXJs zKNiC1OusK5gAaDbGWZkHH FmO1RzfMJq YQfwR966NFsmGuU1GVRoub YjS9StLJBysHorCmY8u6V9 Dw4NBQ10IX14ON64yJFmh3 L3lEG6X6Iu KGKyxdjdfypojXF4TMYyLO FiqE38Mq6gqIkbEr3jNLJg UDI3LWLqiYXjC1CsgL1lYw AjMDAwMDAw A0IrcYPsGTteL431KUnvJd B9YPZyqoYsK6ZzOUOogMnf HcX9i3J3Hs8FSp66GY08CT 52mUNll8T1 hUR4L7FcCZXagwhytxxicL X3ELDwPWXbeG49Ox0ehGwm Kg1gNMSvBPF7TCGqeVZuK8 KsyV0qUnUr UNBlLFReP7VqgQXpHPbcO8 [id number] [id number] hamnw3T8Ux PjwvdHI+BK48JMWpOX62xU WrcCDkl1pviWx0IbTrMIEb [id number] [id number] IGNv (more content not included)... Normal [facility] Main OR Intraoperative Recor don 06-17-2021 Main OR Intraoperative Record IntraOp Document Type FT Summary Primary Physician: Raman HENRY MD Finalized Date/Time: 06/17/21 09:30:46 Pt. Name: CATHERINE SHEIKH/Sex: 1960 Female Med Rec #: [id number] Physician: Raman HENRY MD Financial #: [id number] Pt. Type: O Room/Bed: / Admit/Disch: 06/12/21 [...] 2 Entry 3 Case Attendee Jez HASSAN, Vale Childress RN, Mikayla Toth Role Performed Anesthesiologist Blast Furnace Checker - Primary Scrub - Primary Curing Room Worker Time In 06/12/21 12:49:00 06/12/21 12:49:00 06/12/21 12:49:00 Time Out 06/12/21 13:10:00 06/12/21 13:10:00 06/12/21 13:10:00 Procedure EGD AND COLONOSCOPY(.) EGD AND COLONOSCOPY(.) EGD AND COLONOSCOPY(.) Comments DR. DUNBAR SUPERVISING Last Modified By: Monroe CASILLAS, Ita Childress RN, Ita Queen RN 06/12/21 [...] Participants Ita Childress RN, Sparks, Micala E, Raman HENRY MD Time Out Complete 06/12/21 12:51:00 Outcomes Met? [...] and tissue Entry 1 Skin Integrity Intact, [place], Warm, and Skin Abnormality No Dry Outcomes [...] of positioning (more content not included)... Normal [facility] Consenton 06-13-2021 Consent [id number]#1.0 0CD:127 Normal [facility] Discharge Instructionson Discharge Instructions [id number]#1.0 0CD:127 Normal [facility] IntraOperative Documentson 0 06-13-2021 IntraOperative Documents [id number]#1.0 0CD:127 Normal [facility] IntraOperative Documents [id number]#1.0 0CD:127 Normal [facility] CBC w/Indiceson 06-12-2021 Erythrocyte distribution width (RBC) [Ratio] 15.6 % High 10.9-14.2 [facility] Comment on above: Performed By: #### 2 247080, 31034458, 7387014, 4936483 ####[facility] [address] [place] [address] Hematocrit (Bld) [Volume fraction] 36.8 % Normal 34.0-46.0 [facility] Comment on above: Performed By: #### 2 819147, 41747851, 3176125, 5749780 ####[facility] [address] [place] [address] Hemoglobin (Bld) [Mass/Vol] 12.5 g/dL Normal 12.0-16.0 [facility] Comment on above: Performed By: #### 2 381686, 63025118, 3563585, 2417917 ####[facility] [address] [place] [address] MCH (RBC) [Entitic mass] 28.6 pg Normal 27.0-34.0 [facility] Comment on above: Performed By: #### 2 759231, 64955874, 4367781, 1625911 ####[facility] [address] [place] [address] MCHC (RBC) [Mass/Vol] 33.8 g/dL Normal 31.4-36.0 [facility] Comment on above: Performed By: #### 2 020359, 97098925, 5614170, 9768306 ####[place] [address] [place] [id number] MCV (RBC) [Entitic vol] 84.5 fL Normal 80.0-100.0 [facility] Comment on above: Performed By: #### 2 092188, 33950074, 8822494, 6875148 ####[place] 2[address]857 Platelet mean volume (Bld) [Entitic vol] 8.0 fL Normal 6.4-10.8 [facility] Comment on above: Performed By: #### 2 032957, 66384630, 8842537, 3973808 ####[address] [address] Platelets (Bld) [#/Vol] 186.0 E9/L Normal 150.0-500.0 [facility] Comment on above: Performed By: #### 2 013574, 54092660, 8198267, 6683472 ####[address] [address] RBC (Bld) [#/Vol] 4.4 E12/L Normal 4.3-5.9 [facility] Comment on above: Performed By: #### 2 247210, 44316999, 0636829, 9888644 ####[facility] [address] [place] [address] WBC corrected for nucl RBC Auto (Bld) [#/Vol] 5.7 E9/L Normal 4.0-11.0 [facility] Comment on above: Performed By: #### 2 285662, 34535029, 2417664, 6337069 ####[facility] [address] [place] [address] CMPon 06-12-2021 Albumin [Mass/Vol] 3.9 g/dL Normal 3.3-5.0 [facility] Comment on above: Performed By: #### 2 762088, 22077897, 9803646, 5272507 ####[facility] [address] [place] [address] Albumin/Globulin (S) [Mass conc ratio] 1.2 Normal 1.1-2.2 [facility] Comment on above: Performed By: #### 2 685258, 39194378, 2536741, 5963426 ####[place] [address] [place] [address] ALP [Catalytic activity/Vol] 56 Int._Unit/L Normal 21-98 [facility] Comment on above: Performed By: #### 2 858465, 52744268, 6436772, 7612647 ####[facility] [address] [place] [address] ALT No additional P-5'-P [Catalytic activity/Vol] 23 Int._Unit/L Normal 6-46 [facility] Comment on above: Performed By: #### 2 073510, 44139134, 1303246, 2094942 ####[facility] [address] [place] [address] Anion gap [Moles/Vol] 13 mmol/L Normal 6-16 [facility] Comment on above: Performed By: #### 2 690903, 44557440, 5896275, 0134493 ####[facility] [address] [place] [address] AST [Catalytic activity/Vol] 18 Int._Unit/L Normal 5-43 [facility] Comment on above: Performed By: #### 2 721323, 03509220, 2363423, 9030611 ####[facility] [address] [place] [address] Bilirubin [Mass/Vol] 0.6 mg/dL Normal 0.0-1.1 [facility] Comment on above: Performed By: #### 2 491531, 32653955, 6235066, 8160377 ####[facility] [address] [place] [address] Calcium [Mass/Vol] 9.0 mg/dL Normal 8.9-11.1 [facility] Comment on above: Performed By: #### 2 696079, 66933191, 4341216, 3167493 ####[facility] [address] [place] [address] Chloride [Moles/Vol] 111 mmol/L Normal 101-111 [facility] Comment on above: Performed By: #### 2 771686, 89076713, 2954352, 4268826 ####[facility] [address] [place] [address] CO2 [Moles/Vol] 25 mmol/L Normal 21-31 [facility] Comment on above: Performed By: #### 2 252026, 28019958, 6732918, 7023488 ####[facility] [address] [place] [address] Creatinine [Mass/Vol] 0.7 mg/dL Normal 0.5-1.3 [facility] Comment on above: Performed By: #### 2 852797, 61143042, 5677234, 4487602 ####[facility] [address] [place] [address] Globulin (S) [Mass/Vol] 3.4 g/dL Normal 1.4-4.0 [facility] Comment on above: Performed By: #### 2 506234, 28874170, 9697558, 7444665 ####[facility] [address] [place] [address] Glucose [Mass/Vol] 99 mg/dL Normal 55-199 [facility] Comment on above: Result Comment: If t his glucose result represents a fasting glucose, interpretation should refer to the following reference range: 55-99 mg/dL Performed By: #### 2 140767, 31369323, 9919336, 2207113 ####[facility] [address] [place] [address] Potassium [Moles/Vol] 3.6 mmol/L Normal 3.5-5.3 [facility] Comment on above: Performed By: #### 2 089289, 53549689, 5213368, 2778769 ####[facility] [address] [place] [address] Protein [Mass/Vol] 7.3 g/dL Normal 6.0-7.8 [facility] Comment on above: Performed By: #### 2 312410, 91773487, 7187926, 7485519 ####[facility] [address] [place] [address] Sodium [Moles/Vol] 145 mmol/L Normal 135-145 [facility] Comment on above: Performed By: #### 2 713577, 06763590, 5995835, 3104237 ####[facility] [address] [place] [address] Urea nitrogen [Mass/Vol] 10 mg/dL Normal 5-21 [facility] Comment on above: Performed By: #### 2 753657, 03763382, 1969834, 4740255 ####[facility] [address] [place] [address] Urea nitrogen/Creatinine [Mass ratio] 14 No Units Normal 10-20 [facility] Comment on above: Performed By: #### 2 799116, 70964845, 7486687, 2846569 ####[facility] [address] [place] [address] Consent for Treatmenton 06-02 Consent for Treatment [id number] [facility] [id number]#1.0 0CD:127 Normal [facility] Endoscopic Procedure Report - Otheron 06-12-2021 Endoscopic [...] nonbleeding internal hemorrhoids Images Procedure images: Rec1_hd_video__ _[id number].jpg Rec1_hd_video__ _[id number].jpg . Post-Procedure Complications: none. Estimated blood loss: [...] medications. Return to activities:: After 24 hours. Normal [facility] Comment on above: Result Comment: Elec tronically Signed By: Raman HENRY MD\.br\Date and Time Signed: 06/12/21 13:09 EDT Other Comment: Darlin diaz Attachment - attachment storage system not supported [id number] Can be viewed in source systemMissing Attachment - attachment storage system not supported [id number] Can be viewed in source system Endoscopic [...] Gallbladder ultrasound, CBC, CMP and lipase Normal [facility] Comment on above: Result Comment: Elec tronically Signed By: Raman HENRY MD\.br\Date and Time Signed: 06/12/21 13:08 EDT Other Comment: Darlin diaz Attachment - attachment storage system not supported [id number] Can be viewed in source systemMissing Attachment - attachment storage system not supported [id number] Can be viewed in source systemMissClearEdge Power Attachment - attachment storage system not supported [id number] Can be viewed in source systemMissClearEdge Power Attachment - attachment storage system not supported [id number] Can be viewed in source system Inpatient Patient Summaryon 06-12-2021 Inpatient Patient Summary [place] [address] [facility] Clinical Discharge Instructions PERSON INFORMATION Name: [...] Capsules By Mouth every day. Comment: Normal [facility] Lipase Levelon 06-12-2021 Lipase [Catalytic activity/Vol] 23 U/L Normal 13-58 [facility] Comment on above: Performed By: #### 2 191132, 67341656, 6941170, 5945182 ####[facility] [address] [place] [address] Main OR PACU I Recordon 06-02 Main OR PACU I Record PACU Phase I Docum ent Type FT Summary Primary Physician: Raman HENRY MD Finalized Date/Time: 06/12/21 14:39:20 Pt. Name: CATHERINE SHEIKH Willi/Sex: 1960 Female Med Rec #: [id number] Physician: Raman HENRY MD Financial #: [id number] Pt. Type: O Room/Bed: / Admit/Disch: 06/12/21 [...] I Outcomes Met? Yes Last Modified By: Dolores De Leon RN 06/12/21 14:39:12 Post-Care Text: The patient demonstrates [...] Dolores De Leon RN 06/12/21 14:39 Normal [facility] Main OR Preoperative Recordo n 06-12-2021 Main OR Preoperative Record Holding Area Document Type FT Summary Primary Physician: Raman HENRY MD Finalized Date/Time: 06/12/21 11:42:13 Pt. Name: CATHERINE SHEIKH/Sex: 1960 Female Med Rec #: [id number] Physician: Raman HENRY MD Financial #: [id number] Pt. Type: O Room/Bed: / Admit/Disch: 06/12/21 [...] By: Rosie Bravo RN 06/12/21 11:42 Normal [facility] Monitor Recordon 06-12-2021 Monitor Record [id number]#1. 00CD:127 Normal [facility] Outpatient Surgery Discharge Instructionon 06-12-2021 Outpatient Surgery Discharge Instruction [place] [id number] Patient Discharge Instructions PERSON INFORMATION Name: TRACIE CATHERINE Date of : 1960 Current Date: 06/12/2021 13:10:48 PHYSICIANS Admitting Physician: MARTÍN ARMAS [facility] Discharge Diagnosis: Esophageal inlet patch CATHERINE SHEIKH [...] Haddad- You may receive a survey from Christi Cohn asking you to rate your care experience. Your feedback is important and will help us understand what we do well and how we can improve the quality of care we provide to you, your loved ones and our community. It?s an honor to serve you. Thank you for choosing [facility] HERE ARE THE MEDICATION CHANGES THAT OCCURRED [...] Mouth every day. PATIENT EDUCATION INFORMATION Instructions: [facility] Patient Education - Texton 0 06-12-2021 Patient Education - Text [facility] Progress Note-Physicianon Progress Note-Physician Patient: CATHERINE [...] br/min (JUN 12:) SBP 120 mmHg (JUN 12:) DBP 62 mmHg (JUN 12:) SpO2 96 % (JUN 12:) Weight 101.2 kg (JUN 12:) Height 166 cm (JUN 12:) BMI 36.73 (JUN 12:) Pain assessment: Pain Assessment 06/12/2021 13:11 EDT Pain Symptoms Self Report No, able to self report . Respiratory: Adequate air exchange with baptism of preoperative function.. Cardiovascular: Cardiovascular function is stable and has returned to preoperative levels.. Neurologic: Pt has returned to preoperative baseline.. Review / Management Condition: Stable. Assessment Anesthetic outcome No anesthetic complications noted. Plan Transfer/ Discharge: Patient can be discharged from PACU when criteria met. Condition good. Normal [facility] Comment on above: Result Comment: Elec tronically [...] 1 EA, Refill(s) 0, PER PHYSICIAN INSTRUCTIONS, [facility], 166, cm, 04/23/21 9:16:00 EDT, [...] data available Respiratory: Adequate air exchange with baptism of preoperative function.. Cardiovascular: Cardiovascular function is stable and has returned to preoperative levels.. Neurologic: Pt has returned to preoperative baseline.. Review / Management Condition: Stable. Assessment Anesthetic outcome No anesthetic complications noted. Plan Transfer/ Discharge: Patient can be discharged from PACU when criteria met. Condition good. Normal [facility] Comment on above: Result Comment: Elec tronically Signed By: Albert Dunbar JR, DO eGFRon 06-12-2021 GFR/1.73 sq M.predicted among blacks MDRD (S/P/Bld) [Vol rate/Area] mL/min/{1.73_m2} Normal >=59 [facility] Comment on above: Order Comment: Order added by Discern Expert. Result Comment: eGFR is race adjusted. AA=. Performed By: #### 2 102925, 62793158, 9956031, 9669339 ####[facility] [address] [place] [address] GFR/1.73 sq M.predicted among non-blacks MDRD (S/P/Bld) [Vol rate/Area] mL/min/{1.73_m2} Normal >=59 [facility] Comment on above: Order Comment: Order added by Discern Expert. Result Comment: Jigger Artisan precious kidney disease could be indicated at eGFR's of less than 60 mL/min/1.73m2. Kidney failure is indicated at less than 15 mL/min/1.73m2. Performed By: #### 2 817216, 16445732, 9940390, 0474902 ####[facility] [address] [place] [address] Progress Note-Physicianon Progress Note-Physician Patient: CATHERINE SHEIKH [...] 1 EA, Refill(s) 0, PER PHYSICIAN INSTRUCTIONS, [facility], 166, cm, 04/23/21 9:16:00 EDT, [...] review: No qualifying data available . Plan [place] [employer] Anesthesiologists (ASA) physical status classification: Class II. Anesthetic Preoperative Plan Anesthesia: Monitored anesthesia care and general anesthesia if required.. Anesthetic plan, risks, benefits, and alternatives discussed with the patient and/or family. Pt. and/or family present and agree to proceed as planned.. Discussed the importance of abstaining from tobacco products, and offered counseling if desired.. Normal [facility] Comment on above: Result Comment: Elec tronically Signed By: Albert Dunbar JR, DO.wes\Date and Time Signed: 06/11/21 14:42 EDT Vital Signs Date Time Vital Sign Value Performing Clinician Temitope tamez 12-27-2023 12:30-0500 Body height 165.1 cm [facility] 12-27-2023 12:30-0500 Body mass index (BMI) [Ratio] 36.3 kg/m2 [facility] 12-27-2023 12:30-0500 Body temperature 98.2 [degF] [facility] 12-27-2023 12:30-0500 Body weight 99.1 kg [facility] 12-27-2023 12:30-0500 Heart rate 74 /min [facility] 12-27-2023 12:30-0500 Respiratory rate 18 /min [facility] 12-27-2023 12:30-0500 SaO2% (BldA) [Mass fraction] 97 % [facility] Encounters Encounter Date Encounter Type Care Provider Facility Start: 01-26-2024 End: 01-27-2024 ambulatory DEBORAH GIPSON Not Available Start: 01-04-2024 End: 01-04-2024 ambulatory VAIL FAWWAD Not Available Start: 01-01-2024 End: 01-01-2024 ambulatory CARLA BLAND Not Available Start: 12-27-2023 End: 12-27-2023 ambulatory [facility] Work Phone: Start: 12-27-2023 End: 12-27-2023 Patient encounter procedure [facility] Work Phone: Start: 12-16-2022 End: 12-17-2022 ambulatory VAIL H FAWWAD Facility:[facility] Start: 09-24-2022 End: 09-25-2022 ambulatory VAIL H FAWWAD Facility:[facility] Start: 05-13-2022 End: 07-09-2022 ambulatory FRANCIA RODGERSING Facility:[facility] Start: 04-08-2022 End: 04-09-2022 ambulatory VAIL H FAWWAD Facility:[facility] Start: 03-25-2022 End: 03-26-2022 ambulatory VAIL H FAWWAD Facility:[facility] Payers Date Payer Category Payer Unknown [id number] 1960 Self-pay [id number] 1960 Unknown [id number] 2.16.84 [id number] 1960 Unknown [id number] .16.84 [id number] 1960 Unknown [id number] 2.16.84 0.1.434725.3.579.2.593 1960 Unknown [id number] 2.16.84 0.1.437084.3.579.2.593 1960 Unknown [id number] 2.16.84 0.1.866696.3.579.2.593 1960 Unknown [id number] 2.16.84 0.1.254836.3.579.2.1259 1960 Unknown [id number] 2.16.84 0.1.389553.3.579.2.1259 1960 Unknown [id number] 2.16.84 0.1.212079.3.579.2.1259 1960 Unknown [id number] 2.16.84 0.1.460734.3.579.2.1259 Self-pay Self Pay [id number] Unknown [id number] 2.16.84 [id number] Unknown [employer] BC/BS [id number] Unknown Adair VALENTIN [id number] Unknown Melvina Barrientos VALENTIN [id number] Social History Date Type Detail Facility [facility] if ever smoked [facility] Work Phone: Start: 1960 Sex Assigned At Female F [facility] Clinical Note 04-08-2022 Note Date & Type [...] authenticated by: MAKENZIE GOLDMAN Date: 2022-04-08 17:50 [facility] Clinical Note 10-09-2021 Note Date & [...] Sister and Brother. Hypertension: Sister. Hypothyroidism: Sister. [facility] Comment on above: Result Comment: Elec tronically [...] lesion(s) present No Hyperplastic polyp(s) present No [facility] History and physical note 06-13-2021 Note Date & Type Note Facility 06-13-2021 Note [id number] #1.00CD:127 [facility] Evaluation note Note Date & Type Note Facility Evaluation note [facility] Summary Purpose Family History No Family History Records FoundNo Family History Records FoundNo Family History Records Found Advance Directives No Advanced Directives Records Found Advance Directive Response Recorded Date/ Time Advance Directives No March 15 9 7:04am Chief Complaint and Reason for Visit Chief Complaint right cheek swollen and hot Additional Source Comments INFORMATION SOURCE (unrecogn ized section and content) DATE CREATED AUTHOR 05/24/2022 Mehul Washburn [facility] DATE CREATED AUTHOR AUTHOR'S ORGANIZ ATION 12/20/2022 [facility] DATE CREATED AUTHOR AUTHOR'S ORGANIZ ATION 01/30/2024 [facility] [employer] Care Teams (unrecognized sec tion and content) Team Status: Active Member Role Status Dates Charo Baker MD Primary Care Provider Active Team Status: Inactive Member Role Status Dates Charo Baker MD Primary Care Provider Active S tart: December 27, 2023 End: December 27, 2023 Lary Hackett APRN Attending Provider Active Start: December 27, 2023 End: December 27, 2023 Goals (unrecognized section and content) Goals may be documented in a n alternate section FOR RECORDS PERTAINING TO PATIENTS WHO ARE [...] BE BASED ON THE PRIMARY CLINICAL RECORDS. [employer] provides no warranty or guarantee of the accuracy or completeness of information in this document.
== END 2024-02-02 11:59 | disposition home or self-care (01) ==
LOC: RAD 11:59
PROVIDERS: PCP Internal Medicine; Visit Provider Internal Medicine
DX: H66.003 Acute suppurative otitis media without spontaneous rupture of ear drum, bilateral (principal); J98.8 Other specified respiratory disorders; J98.9 Respiratory disorder, unspecified; R50.9 Fever, unspecified
CPT/HCPCS: 71046

== ENCOUNTER 2024-05-17 09:14 | Outpatient (OUT) | payer OTHER, SELFPAY ==
--- OUTSIDE RECORDS SUMMARY | 2024-05-17 09:19 | XMS_ITS | CCD ---
Author Organization [facility] Care Team Providers Care Workday Consultant Name Role Phone FAWWAD, VAIL H Attending [...] H Admitting Unavailable CARLA BLAND Attending Unavailable ODALISD, VAIL Attending Unavailable DEBORAH GIPSON Attending Unavailable DEBORAH GIPSON Referring Unavailable FAWWAD, Attending Unavailable FAWWAD, VAIL Attending Unavailable Medications Current Medications Medication Drug Class(es) [...] by: SHAHID MOLINA Date: 2022-12-16 14:13 Normal [facility] VICKEY - VITAMIN Don 12-16-2022 VIT D 25-OH 28.8 ng/mL Normal [facility] Comment on above: Performed By: #### D ATVITD #### [facility] [address] [place] [address] Dr. Emmanuel Hillman VIT D RANGES SEE BELOW Normal [facility] Comment on above: Result Comment: <20 ng/mL Vit D deficient 20 - <30 ng/mL Vit D insufficient 30 - 100 ng/mL Vit D sufficient >100 ng/mL Potential Toxicity Performed By: #### D ATVITD #### [facility] [address] [place] [address] Dr. Emmanuel Hillman GLYCOHEMOGLOBIN A1Con 2022 ADA RECOMMENDATION SEE BELOW Normal [facility] Comment on above: Result Comment: ADA RECOMMENDED LIMIT 4.0 - 6.0 ADA THERAPEUTIC TARGET < 7.0 ACTION SUGGESTED > 7.0 Performed By: #### D ATA1C #### [facility] [address] [place] [address] Dr. Emmanuel Hillman Glucose [Mass/Vol] 108 mg/dL Normal [facility] Comment on above: Performed By: #### D ATA1C #### [facility] [address] [place] [address] Dr. Emmanuel Hillman HbA1c (Bld) [Mass fraction] 5.4 % Normal 4.5-6.2 [facility] Comment on above: Performed By: #### D ATA1C #### [facility] [address] [place] [address] Dr. Emmanuel Hillman LIPID PROFILEon 12-16-2022 CHOL-HDL RATIO NORM SEE BELOW Normal [facility] Comment on above: Result Comment: 3.3 - 4.4 LOW RISK 4.4 - 7.1 AVERAGE RISK 7.1 - 11.0 MODERATE RISK >11.0 HIGH RISK Performed By: #### L IPID, TSH, LIVER #### [facility] [address] [place] [address] Dr. Emmanuel Hillman Cholesterol [Mass/Vol] 148 mg/dL Normal <=200 [facility] Comment on above: Performed By: #### L IPID, TSH, LIVER #### [facility] [address] [place] [address] Dr. Emmanuel Hillman Cholesterol in HDL [Mass/Vol] 44 mg/dL Normal 40-60 [facility] Comment on above: Performed By: #### L IPID, TSH, LIVER #### [facility] [address] [address] [address] Emmanuel Hillman Cholesterol in LDL [Mass/Vol] 79.0 mg/dL Normal [facility] Comment on above: Performed By: #### L IPID, TSH, LIVER #### [facility] [address] [address] [address] Emmanuel Hillman Cholesterol.total/Cho lesterol in HDL [Mass ratio] 3.4 {ratio} Normal [facility] Comment on above: Performed By: #### L IPID, TSH, LIVER #### [facility] [address] [address] [address] Emmanuel Hillman HDL NORMAL > or = 60 mg/dl - LO W CARDIOVASCULAR RISK <40 mg/dl - HIGH CARDIOVASCULAR RISK Normal [facility] Comment on above: Performed By: #### L IPID, TSH, LIVER #### [facility] [address] [address] [address] Emmanuel Hillman LDL CALC NORMAL SEE BELOW Normal [facility] Comment on above: Result Comment: <100 mg/dl OPTIMAL 100 - 129 mg/dl NEAR OR ABOVE OPTIMAL 130 - 159 mg/dl BORDERLINE HIGH 160 - 189 mg/dl HIGH >190 mg/dl VERY HIGH Performed By: #### L IPID, TSH, LIVER #### [facility] [address] [address] [address] Emmanuel Hillman Triglyceride [Mass/Vol] 125 mg/dL Normal <=150 [facility] Comment on above: Performed By: #### L IPID, TSH, LIVER #### [facility] [address] [address] [address] Emmanuel Hillman VLDL CALC 25.0 mg/dL Normal [facility] Comment on above: Performed By: #### L IPID, TSH, LIVER #### [facility] [address] [address] [address] Emmanuel Hillman LIVER PROFILEon 12-16-2022 Albumin [Mass/Vol] 3.7 g/dL Normal 3.4-5.0 [facility] Comment on above: Performed By: #### L IPID, TSH, LIVER #### [facility] [address] [address] [address] Emmanuel Hillman Albumin/Globulin [Mass ratio] 0.9 {ratio} Normal [facility] Comment on above: Performed By: #### L IPID, TSH, LIVER #### [facility] [address] [address] [address] Emmanuel Hillman ALP [Catalytic activity/Vol] 69 U/L Normal 46-116 [facility] Comment on above: Performed By: #### L IPID, TSH, LIVER #### [facility] [address] [place] [address] Dr. Emmanuel Hillman ALT [Catalytic activity/Vol] 34 U/L Normal 14-59 [facility] Comment on above: Performed By: #### L IPID, TSH, LIVER #### [facility] [address] [place] [address] Dr. Emmanuel Hillman AST [Catalytic activity/Vol] 17 U/L Normal 15-37 [facility] Comment on above: Performed By: #### L IPID, TSH, LIVER #### [facility] [address] [place] [address] Dr. Emmanuel Hillman BILI, CONJUGATED 0.1 mg/dL Normal 0.0-0.2 [facility] Comment on above: Performed By: #### L IPID, TSH, LIVER #### [facility] [address] [place] [address] Dr. Emmanuel Hillman Bilirubin [Mass/Vol] 0.4 mg/dL Normal 0.2-1.0 [facility] Comment on above: Performed By: #### L IPID, TSH, LIVER #### [facility] [address] [place] [address] Dr. Emmanuel Hillman Globulin (S) [Mass/Vol] 4.3 g/dL Normal [facility] Comment on above: Performed By: #### L IPID, TSH, LIVER #### [facility] [address] [place] [address] Dr. Emmanuel Hillman Protein [Mass/Vol] 8.0 g/dL Normal 6.4-8.2 [facility] Comment on above: Performed By: #### L IPID, TSH, LIVER #### [facility] [address] [place], [place] [address] Dr. Emmanuel Hillman TSHon 12-16-2022 TSH 5.447 uIU/mL Critically high 0.358-3.740 [facility] Comment on above: Performed By: #### L IPID, TSH, LIVER #### [facility] [address] [place], [place] [address] Dr. Emmanuel Hillman MG MAMM SCREEN 3D MEKA CADon 09-24-2022 MG MAMM SCREEN 3D MEKA CAD Patient: CATHERINE SHEIKH Exam Date: 09/24/2022 : 1960 Gender:F Ordering : SHAIKH Quintin CHAPIN . Admission #: [id number] Family : Order #: [id number] CLICK HERE TO VIEW EXAM RADIOLOGY REPORT [...] breast cancer at age 69. LOCATION: [facility] BREAST COMPOSITION: Scattered areas fibroglandular density. FINDINGS: [...] Molina M.D. on 09/24/2022 at 13:35 Normal [facility] LIPID PROFILEon 03-25-2022 CHOL-HDL RATIO NORM SEE BELOW Normal [facility] Comment on above: Result Comment: 3.3 - 4.4 LOW RISK 4.4 - 7.1 AVERAGE RISK 7.1 - 11.0 MODERATE RISK >11.0 HIGH RISK Performed By: #### L IPID, TSH #### [facility] [address] [address] [address] Emmanuel Hillman Cholesterol [Mass/Vol] 149 mg/dL Normal <=200 [facility] Comment on above: Performed By: #### L IPID, TSH #### [facility] [address] [address] [address] Emmanuel Hillman Cholesterol in HDL [Mass/Vol] 44 mg/dL Normal 40-60 [facility] Comment on above: Performed By: #### L IPID, TSH #### [facility] [address] [address] [address] Emmanuel Hillman Cholesterol in LDL [Mass/Vol] 87.6 mg/dL Normal [facility] Comment on above: Performed By: #### L IPID, TSH #### [facility] [address] [address] [address] Emmanuel Hillman Cholesterol.total/Cho lesterol in HDL [Mass ratio] 3.4 {ratio} Normal [facility] Comment on above: Performed By: #### L IPID, TSH #### [facility] [address] [address] [address] Emmanuel Hillman HDL NORMAL > or = 60 mg/dl - LO W CARDIOVASCULAR RISK <40 mg/dl - HIGH CARDIOVASCULAR RISK Normal [facility] Comment on above: Performed By: #### L IPID, TSH #### [facility] [address] [address] [address] Emmanuel Hillman LDL CALC NORMAL SEE BELOW Normal [facility] Comment on above: Result Comment: <100 mg/dl OPTIMAL 100 - 129 mg/dl NEAR OR ABOVE OPTIMAL 130 - 159 mg/dl BORDERLINE HIGH 160 - 189 mg/dl HIGH >190 mg/dl VERY HIGH Performed By: #### L IPID, TSH #### [facility] [address] [address] [address] Emmanuel Hillman Triglyceride [Mass/Vol] 87 mg/dL Normal <=150 [facility] Comment on above: Performed By: #### L IPID, TSH #### [facility] [address] [address] [address] Emmanuel Hillman VLDL CALC 17.4 mg/dL Normal [facility] Comment on above: Performed By: #### L IPID, TSH #### [facility] [address] [address] [address] Emmanuel Hillman TSHon 03-25-2022 TSH 3.614 uIU/mL Normal 0.358-3.740 [facility] Comment on above: Performed By: #### L IPID, TSH #### [facility] [address] [place] [address] Dr. Emmanuel Hillman TSH RANGE SEE BELOW Normal [facility] Comment on above: Result Comment: <0.3 4 UIU/ml HYPERTHYROID 0.34-5.60 UIU/ml EUTHYROID >5.60 UIU/ml HYPOTHYROID Performed By: #### L IPID, TSH #### [facility] [address] [address] [address] Emmanuel Hillman [facility] [facility] October 11, 2021 SHAIKH VALENTE, [address] [place] [address] Re: CATHERINE SHEIKH Date of : 1960 Thank you for your referral of Catherine Sheikh who was seen on consultation for abdominal pain, Right upper quadrant pain and nausea with vomiting. I have enclosed my consultation note for your review. I will be happy to follow Catherine. Sincerely, Raymond Davalos MD General Surgery Normal [facility] Ambulatory Clinical Summaryo n 10-09-2021 Ambulatory Clinical Summary {[id number]}CD:[id number] Normal [facility] Gastroenterology Office/Clin ic Noteon 08-19-2021 Gastroenterology Office/Clinic [...] after patient consented to recording for virtual ignition specialist and provider reviewed before signing. ORALIA: Dona Ramires. Follow-up With When Contact (more content not included)... Normal [facility] Comment on above: Result Comment: Elec tronically Signed By: Dona Ramires R\.br\Date and Time Signed: 08/15/21 14:52 EDT\.br\Electronically Co-Signed By: Raman HENRY MD\.br\Date and Time Co-Signed: 08/19/21 09:50 EDT Reminderson 08-19-2021 Reminders - From: Raman HENRY MD To: [facility] - Clinical; Sent: 08/15/2021 13:23:07 EDT Show up: 08/15/2021 13:23:00 EDT Subject: Ambulatory Reminder repeat colonoscopy in 5 years Reminder/Recall Normal [facility] Coding Summary.on 07-12-2021 Coding Summary. CD:[id number] Gh 0bWw+PGhlYWQ+EW3ONNNtZ 18vkBMdvM5WS5hSHL9RPRD RFKAAVP1GWF2zfEN7FChyX 2VybiAv RzrwlUPoUQ47WBg2IIN2vT xtITbqsX3ejXLkD1w7QlXa KY21cN24ENchHRKySzK2Sv ZpbjsgbWFy E4nrPgBbtODiOgn+PHRhYm xlIHdpZHRoPScxMDAlJyBz vOnwUW1wZs8mGHDzDVPkhA xhcHNlOiBj h6zkNIQuGXxyIG8oaHkjK0 WinZR4YWCba1u3Su59sTU+ KQIhBYQ3bMxuMIhqd343Qz Bpv9reMTB3 xCKfZMqfZLW8U58dc8D3IG HjQJFcSIJ0dFX2hA3ceNak wmggP0IuiEIgFvW7PAA9kA NcdK4agMyt jguczE3wSjx+R90KIR1NJB NYHH9NVbb4W1XqLxivrDF+ ED46ADCsYQ98yGCbjLHdp7 wtwAt6JuEy KAUzWSP7xIxbJQztd9LfTC GfF15cpVZkl4P9UZLnrBys nBVbBlWvkGP2cG2pNAadlc xjn5lhgpgz Nmezq4yyit20kC37R11qXW ncSXEeHNR7FJAfSMQvqAao qi1pgF8kHi7+KRddy2nht2 iniIg0QyWg HDOdivBnnWxbNCT9j9VjLb 46I3HapKqwm0BjPux0zq31 nWLfc8O1jPC5OBprTDDgwT 9hLMsjGkI7 PYOuPgBzkZ12qIAeEUbwNi 3qoBqsfKtsJC7hNIDduili UBCiqM5aINQuyADoiWspKD 4wNTBpbjtm t337UmAlKHY6ZBZtkCEoJ9 XtqG9eOiCsZKXpDCRxO7At qRMqPXgeS225MJdaWyF4QI EotmNjB7Zj YGHihQvzRbM9k5B5Si4Bo5 SlhaiaSHR2MYpnJML5GsL5 TpGzGyN9B3KqEpa5JXApsT sdTZ6yY2Qa HFNhpldwltjdxSU7ANHtDP KfnT87eCPxHFifKt5my5U8 h452OUBiOYUigK50Da1drV ogMTBwdCBU wR6optynm1afdcbaNfEqLH LuYPv5LHf1UKIrgFurHvBg NKY3HiN5KVK0sJZzhB0qqH usroljhV6h Oyc+O53ffN8aKCV9TZY7sp daGZGrctFmJW98MS83C3Ak PjwvdGFibGU+PGRpdiBzdH nlTV7uMeRb u5cml3CxQOhzS7FhRLIkGV plTfo3OEHzJVR9aOP1bY6e GYMjKKxjm6C5xLV8E6Cfcz Xcre3mt3cv UTRlTZfzA72jvVWda5K0HC LlkZQ5RADhvTbyQxUroZ83 Oyc+EPQykFbsf9LbZqtfb6 mmf7ierYk2 YaLvBFYbkiEbqYwgQFP9v8 QcMv50Z87bYHisAFWdSDMu IJHdJASebCmvgm9drW8cSv 8+PGNvbCB3 aST8lD9xQOLpAiD6RWpuE7 21EnPqxMUzKsggz5hta1yh wUv3IvOqEXQxqbUlyOltNI S6u7UhGr28 H27eUEtoMJRmWWYhEDOlRG TejQfmeb2gyI3kBf0+PC9j c7sbvn90nO99rXQ+PHRkIH H2kYmcJFzk BKNhkM3yTIfbRtN4CNAvXr MphO83dFUhTUeaJi1ivVgi xArnQJ9lZHIkrkhht684Ps Ngf4xzTFZr pKXfDTdzYDJ4I57wn6A4XY BnUVIbUUI2hHC4rY7adPcw bjogbGVmdDsgdmVydGljYW epKIdbO809 IHRvcDsnPlBhdGllbnQgTm DwWSr8O9XzLhn0PGEtqSav HZ4wgSYkDAwtOy6qkUqupI prHL8pMRYv gswmg379IrVlo5yfSBVamC JzNKllFDP9I86nk3T6LLPz ESBjYAX3gOW9fS5elWbziy ogbGVmdDsg wtXsbEgfAVwuPMuxA052FG RvcDsnPkJpcnRoIERhdGU6 GI97FX63nYMlh4F0zAJ7I2 BhZGRpbmct prneyZI0AKLkGCUopA74Tu 7tsOqgUx2zRLIjYGI9AGXd uILcD7GjfL8zBhVaEGScWV SzC9SzgARz ALsmU886LLrfOfA9PAFtrt OmB4UaALKvwAakPfH4o5X5 Nl7KR2Y1HZ08KQ65jUOak5 A0oZA8X1Vi TFXjqvelmfrteNK5MLJvVQ KlhY33Vh0fdRdtPx3wUCQa HAZ6LDFnzSFkR0DjoK7yOt AjMDAwMDAw Q3YdlUPdAEvyK723NIprNz B9UTPefrUpH7EeBJIplHja InR2n1M2Wh9AIFf6SZ72VI 16dWGka9A9 tYL4Y2EaXRUgconqamkaqH Z7YGYyHRPplZ48Ct8szYpa Un0jPAVrKTR6ICHpdTDrI7 HsdT3zCzGt BKHwZZAgY0XiqDVfOPiiR8 12JNzvCwV8KUCtnaFeH1Sx TTRewJxvIvT5g3X8Bg5TOZ SnJG86IKE0 kJT1RN74ZA87P2JiGzblgB FibGU+PHRhYmxlIHdpZHRo JJfuHTGlHoNyhDudXJ9bHi 9yZGVyLWNv sTyzuJCxAyZqw3yuIYJnPX ifEB4yuHohB7OymBL8CJJv e8x6Kv33T96wX4JejXM+PG HrzGI8dOI0 jV9xSeNvVaC8NFttF996Su SfhVQhHsygn7sat2bogPi9 ErU7CWKmvuRgdAyrUUX1e4 WqUs33W42p IHdpZHRoPSIxNSUiIHZhbG derf8qfU3gFz8+PGNvbCB3 pPU2rD8cOqKpYsK1IBhnA3 49InRvcCIv Pqbzs4buw3rrzXr4UfYsTV PskkUogFvrTBR4l0MlFi26 J8RuwQygj4KgQlm2bp17aO Gzx2B0eTE8 P1MmVMEucqemuUUxaUmxTZ 8jMPYfyeztVNGhqU1uVGXj V0g8ZtJkQzI1PLipS2Ekpq J9PLCnrUMi HLngLQP5K20fo9O6QHRrDA SwPNM6wBI9mF2xdMvikcji bGVmdDsgdmVydGljYWwtYW esW898LXGi jHviGZLrbP4uFDKapCHmhP bvXF6nSUKbjrhdDlBLO3gx NF1MNmSKVW07LZ41qCGzm3 D2jXE7B3Zs FUNjvhuzmzqtsPX0YGUqMG IwuE16qVRqKNkhDg8kp3R3 e853QQZyASDssF71Mm7xfY ogMTBwdCBU bN8uderdr3shtwbnReSrMC BxDZi8YZx1OSUwfJmyBoBq QAZ9McO1PVD5uNGwhC4brT zjxozpoQ7a Oyc+FBZkDHRfPDx8KJjsgS Q+IYBsYQQ4vHkaYOvjYIIm eL0bUJRxQ4j7IyTmBcV8RZ scR2PvKGPm nsdbGc38nX0eDjSkAxR4GP krT6EtjqA5FHLoqKOlVPid CNN3B46zm2U8RTXcNIKdWO O9jZE3dE4o bGlnbjogbGVmdDsgdmVydG ahVNrrNSjfX109DEEraLmz ZgTiDJxgRSOnNA69GJ79oB Erh5O5gXG8 U5UlRUYrflbleyfyqEN6AO VdNZCftZ52qECrTCzhPh3k y1D3p933JMYqXZVxlR53Cu 9udDogMTBw qWTMnR3sqjtpx6imfwruOe HeAQPuOBq7JZl7TBHdoUuq VpXcVNG3GpV6OSD0oMArqN 1hbGlnbjog mX7oRws+UyUjNMslCD28FD 35vIKmv7X1wXA0O2PbWTHa bubomoqxbAA9ZJQrRECxuL 47cGFkZGlu Bd2iz2K9o790QAAcULAitY 55Uf6xkZnqMUGduTNRrJ5p yobew3erwqxkIuLaEMRaEB g1MYk6RAUe mKgnDnAvMOQ3XjZ7RIL7cB JzkN9ixPpyqgtclN6eGkm+ B0P7mJF5iYNyrRfjdVX+PC 36yk24F9Gr WiuvNhz0ZRTdXAT9sEO2hU 4aNYYiIWact3Z8gPI0U5Zp brUpep0im0phZMRhKYoeS8 2csBAgx1W4 ZAUsnDN5YJSscCuzNvPgpP 93Oyc+QHTjhIlfp9BoRtbf b6zzl9nmxJc8PkKfNBKdhs FsaWduPSJ0 z0OlQm11R32pVJuvVWCuRU AcHLRwEHMknDzvej5yxY6n Ii8+KJGmuZI4eEM1mF3xHf YoVpG0ISkn L574WeJzjTLmNnnmc8nsw2 pxgIv1BeYgGSNrriVsbYir YJW7e9OsOv62D0OtoJaii0 QpAha0bo23 wWXkr5Q3kEV6O0TyYKQwzl enlKMrtDlrXB8fCBFdijwn ASAgcP1yGLTfZ1y7YqHfNn L4RYoeO6Iv brN0ZJDduQRiAQZxwPOCsY 6uzstin4babjcdZuZlEJWa MFm0IPk0MPUosDuxPiItPC K5KyE3BSY8 wRTibI0alUwqqzgovT1cDh c+UZh8g6qqqCGsZU7dfLQ4 EV17RT97cGOwh3S4dSE9N8 BhZGRpbmct xhvkkRE9WKZjXRHkhO35Ql 5nvWinNx5zWPBeDAE1ZRZo dCFhC9ScmG6nPkYmUZBkSQ EaI5CigSTa JFvuD338HSqcTjI0TCFiev LkG5SlMDNyrNblJiW3h2I8 Ke9XSB97BW94MN10pQEak9 O6aKS8B4Rp FNBhaoythkbzxYR8OEBsDU GmmQ95Tk7pbNvqVm0wDFFb SYM6RTMljLKwU0EpwY4iQo AjMDAwMDAw L4EgtJNwMOipX565ITgmDk A1TOSoybUgO0VkRQRiePym DrU5z7B3Tt5TZv63FT02HU 88bFArz6T3 cWW4Z6HaEYNgkcytdwedbX P2QGThFPJekL05Ks7ssVbl Kk8mHJLvMWH8SWRzoFUwC9 FgpB1qUzCb IQWcYSCuK0MyaJKuQFjxM2 22JFslMkS3WGFyvkOqF5Or WIYfvAifUyM2z1Z9Oo5KWW joryr4P2Kd PjwvdHI+ZL90ROHbUJ29sF AvySDow4jpzIo6EhLlWHBi YMY6oEhtLJbof4WxRYXfZ3 9jlDTpw7J9 IGNv (more content not included)... Normal [facility] US Abdomen, Limitedon 2020 US Abdomen, Limited [...] Singh MD Transcribed by: VIRGIL Technologist: CARRIE [facility] Consent for Treatmenton 06-03 Consent for Treatment [id number]#1.0 0CD:127 [facility] IntraOperative Documentson 0 06-25-2021 IntraOperative Documents [id number]#1. 00CD:127 [facility] Postoperative Documentson Postoperative Documents [id number]#1.0 0CD:127 [facility] Coding Summary.on 06-17-2021 Coding Summary. CD:[id number] Gh 0bWw+PGhlYWQ+IQ0IOGAjO 22egNNjaH8PI5jIRJ9HVFL SPXHGEJ3RCM8ofJS3PAufC 2VybiAv KxoyeMFcOC68IYt7GJM2pN yuNUcupN6eoGAxC1u1MzBq ND55yI88PCsiTUAcOlE5Ry ZpbjsgbWFy P9rxNgCaiPLjEji+PHRhYm xlIHdpZHRoPScxMDAlJyBz tOcwCM5jXq9tXBTvSTYfjP xhcHNlOiBj z3yqQLPbHIbxRM7ahGnhM2 OhrOP4BYNtr5c5Vl94cFS+ QGNyLVF2eMgwDIiev086Kr Ogp6bqBUN6 eTZoXAvrACC8I61go5W2AW NzZVCkJOV7dKY5uP9upSwp oalnC3MohEHcRfO3WFL1pU ApaJ8trRij phvpyY8wKva+L47TOV3ASW BSEQ6OYgx7S4QcIdlrmXK+ MS50SPXbTK85qZRepHMii8 urhWp3IzUl OFAyYNE4uWwoFMjbi1MsPN CeL09dbOKhc7K7JWHcxZnw oBJzNrXceWD9xD9qBPbouz zvp9yhohbi Hxtvk4tyeu06rA61D66hOO zcAGWwIXK9CHUoJQJjgSoy pb8pfZ9nKq5+GDpxg2eln4 dcpSg2QyZh EBOvqgAmuVvnPJY8r6DyBj 90R2EgpUzgl0UtRou2bz09 mBFki7I7sLV0GGflCKUunV 3xYLohSmD7 KABgTsTqoW97iEMqDMifDy 7hyOdheObmGZ7gULUulmqf KGGfwA4nZZDgfCZraLnhWK 4wNTBpbjtm r515TgOuCUC7KVMfzESfW4 JxcI2pTkEdCEWcHKVpA7Nl sOMlQGjkY721CMqnVmK8IF BdoyQlT9Oi OEUbxQvpBdQ2k3P8Ng1Mu9 FeownkDDL7KSorBFO4SqZ2 XbPmKyV0S2WyUta9PAIqzB mjGC4xZ9Eo KNZptymtscyutNH6GQRcKF GnsI34fEVoRVtfAs3ww6E4 k619MQZoZJRvhV87Ee9vuQ ogMTBwdCBU hW9kwdrck6kkttucIpLrVZ SaQYb9ADl0KPOpkQgbBlMm EUC8MyG0XYJ7lWHznY2wcK tfvhjfiE9k Oyc+P56ciY1yXUO7WBZ6bn yvYOWhhsPxOT74MJ83V9Hv PjwvdGFibGU+PGRpdiBzdH veGU8lNjKo r3aoi7QxBItlV3HfFVKzUB hgZqg0AHRzUDH9xAU8rA6v YCUyVXjdl0A5sWX3I5Paqw Trot3ev6zo LBIeENzaF50shJImd1V1IL JbnFM2LWMjnPvuOvQjmR12 Oyc+DMCqgDeqe0QtWynpg6 epb9oupOi4 AwJvSGLhqmXelPeeXAK5d6 MrKe34O58dNVrqHGXlGRAl QRAgGLXxmLaxvz1uoI1nLm 8+PGNvbCB3 qPO6hL3oPLYgPlT7CIqzE6 07UzJjiCJtOxgbp6jnr6ov uPu5LuHsXIZmlkYuyEilXD E6c2HeVq08 Y28wVGviCQZwOWHaXQAoOP ApwTptya1mqF5gIp5+PC9j d8wvwq56wG76wUZ+PHRkIH W1gKffZIpl VQDavF5yISrnOkE0UYGeCv IlqN64yJFfTRvbZl3msAlz rGfrVS2tVFSbblvut190Zj Zxx1bwZBDm lACxFFeeSUT8D58ls4H3OI AlJEQlEQP4uNP0yD8duDma bjogbGVmdDsgdmVydGljYW ylXHmtP638 IHRvcDsnPlBhdGllbnQgTm OoLYv6J1IySvm5CILxhTtz DC4rjINtUSuhVp5keLwsaJ geCL2eYDAj ottzx596XpPdd6maGAFzqX BrTIqaJPJ3O21vq7O4VBVf DITuJZA6wIK0kL8psFyyeh ogbGVmdDsg dvCtbRrpVRtcLOwnP530AJ RvcDsnPkJpcnRoIERhdGU6 UY56XZ81hVVbs9S5cER6M1 BhZGRpbmct wvujlCV3UNLoZILsfD67Rv 7sgOwaYr1xXYSlOJG9UFBj fHOxX3HlwC4yGpLuIRCxVG MqN7JbmEWx MAcjP507VSqoQkB7VCTlkg RkC2QkNBSsbYgaJwB5o2I3 Cc6OY3Q1EJ28TC27iCClq8 C1zGF7A0Aa PHUliuesdnfzfDC6BXBbCL PpoN80Bu4vwTejQl4vTSDj RXB9SAMxdIGrF8PbqR8tQb AjMDAwMDAw B6DedYZvOKmcA286EZkmVx S8VMQaijYcK9ZpMBFkeIpj RnF0g5E2Jl3WJYt4VC27GK 61fMZlj2J5 iBW9L0UiEDVstkfmfbrlxI U1FRQmULKorY02Mc1wsFan Sd1eNQJqPBX7WXNdlPIlE0 JlfK1xNuZd PUThBTRgI8TcwMVtRBbsJ9 34NGkdHyQ5TPOtvdPqV7Pk GXZtjHhnOqH4t5P4Ji7EKB AmFJ21GGA0 zJX5FD69YG31Y9ZdPxnzuW FibGU+PHRhYmxlIHdpZHRo APymODMwOsYerQvzHW1pOi 9yZGVyLWNv dAwhlABeKzFkn1rsZSJxMC hhFA7wwIpqB5JjgAA4HEGn y3a1Fq60W49yM2MmaOV+PG AbvZE9sAU4 sY6iLcTxYbG9SYwkA666Dk UvaGEkXkuos9bsd0stdGo5 KtU9SLAkbvFmoJaeWPO9w7 VlNi23V70x IHdpZHRoPSIxNSUiIHZhbG ilqd9lbE4zXp9+PGNvbCB3 bLJ3sF5xVmVmUmB3BXrvY0 49InRvcCIv Mewhx0ete6hzeQi4WjYxPW ZigaFmpGtvXTQ9q8GwZh67 E7AxoCext2EuWmu6tp95fP Xaq6X5mEL7 Q9DxLWOrklwowYPblTwbPI 3gILWimenzZTMaoZ1oNFBn I0k9RmYhTvW0DOmyJ7Cndx X5BKCyrXUr FDcgYQA7O44nz8D0LEWfLQ QsEOL5bHN6vS4fyNcinyqq bGVmdDsgdmVydGljYWwtYW zrW283KQLp yXoqPHPjzG1mBRCjdZZcmJ lgZN5sRNOqrtbyTgNPM6pa WX6WHlZZQG16DD52lKFhb2 K4hDW9O7Jc ZYAtfqwmweptqHR0INIdKG WnhW99xBGuMEjjTv4my8W8 i281CVYeGXRcrH41Zr4dfF ogMTBwdCBU cL6qdvvmw7snvnuiJtSnPF UaPMt9DZv9PDCasIqoAiFy NSK2FvN1QEH5kZLlvJ4fqP ywrnhnhZ2k Oyc+KFJuQKMcMFb6KCdinZ Q+QAPeRKN9sPikTRqqGXDg nC6pKCHoG2w4IcUaGgJ1XL jiI5EsPZWy gxhfXo23tA1zQmOaCoH1YD szH8PnyeZ6PGGoaGZtQLhm CTS6H70ki8T9XUJkCYSePP L2tDF2bL5m bGlnbjogbGVmdDsgdmVydG tnUBokWHrsI407WVQkxDoa WpRyDNsvCNAqUY18YZ51mW Mcy5V2bTG4 T6WyCIJetzodahqozQT5MG LzEEOsvM37pGNyBYacBy5c f8Q6t946VCShMPIdjJ60Li 9udDogMTBw jYNCnM1nmgnkw1fpjiwwWt SbJRAcFSq7FWs2KKSrdBlr TqTtOXV1AuH1YUE8rLKfaS 1hbGlnbjog vO9uIsu+TlZxFGcnFW49MK 20oMHca5F4vMJ8V1SyZRDx fkjisvsyzAZ1NMZoMPTbbS 47cGFkZGlu Ut1pr4H6o766LLGmDNCmdF 66Lh5kmEilIQUcxLLXnF6c cnbdd8szitgfGgTtBXGfJB v8PQx7ADHc uZjaKtKnLSQ1MwH8PTT4qA UahY3xxLdpwxodqG8mOmz+ N7M8zHV8aFNbhKvrcUD+PC 30mg96R0Cz VopjJtj0EBRzWLU2cPX2eS 3mUABrIDoze8B4hFV3P7Df qvFyeu4sc9mrSPHeZGdmD4 9ptOCrz9Z6 KXKitRX4YZSvdSnxDdPaaY 93Oyc+VUFdrQrxs5TcBvhn v7lcd7llbYj7QtPsMCRhaz FsaWduPSJ0 r8DpJp96E16wERqnOXZoWD QxVHRiQBSbeDtnsa6jlH6k Ii8+SMNbbWU2dDU3aW6oVl NvJeR8QCik L043ZaLtlHDjEgwzg1xak5 amzJv2DhHcMLHpokCfkTqp CID4p9OuGf40Z4BxeNfuz4 MlHml9wo04 fTNca4D6wHV7P0LsBCPsrd ddbRVnsHtuYV2tZHIywoox IZJxdO6oKJAlY3s0WyYjAc B2MEmcT2Qp uaX2MFMszPLxUCReaHBSsN 0qzohso1xwbclnDpLkSXJa TYy4FAc9BCNnnRyzLyFiTQ U9ZnR5CKS8 zNHmtI9mjZormofveT7iDp c+RIw4r0porRLvQL0tvRK3 LK22FG71wAZtp2G3mDI4H8 BhZGRpbmct mrugqOA4AQUxHQNteW55Lk 8rdDkmPo5tEOTmHYL8RDOu hBEyE7FbdU7bYcHwAKIvIL VtT4NeeFWo PDnxD747IYcpEfB3YIYrjg PoV3XtYWNkqHbuOdC6h8K5 If7VPD86VU08FB23kHDqy7 L2lTY4G7Xy UBKrweafungvhXE8FTOfGR PndQ44Th7qaHdtFc7mXJKz UTS4MJSmcJOsQ4HcnW5mHr AjMDAwMDAw P1FflJRxWSivH217JVmbNi C3THPyvyQaM4QaXLWtuVhs MlG7t5E5Xu4LTr66CD61YU 97zISxw9L4 cDC4G7SdRXUcvrdzsxkcoP M9XABiJQWwjF76Fy5jvBel Dg1dUDErUOT8NMCsdOMoL0 FouD3zNvKm CVUaXDReY0VwpBXzDSraE1 24UIvlWfQ3AXFepmTyE5Wi OVBtdUybZfX4s9C9Mw9HWB npgfe5A2Ma PjwvdHI+AR88XOJtMZ17lG QuzPGqe6zxqRh6NhJgQXGr TBJ3pLirLLzen5LvRFDwG8 1pfMBxm2M0 IGNv (more content not included)... Normal [facility] Main OR Intraoperative Recor don 06-17-2021 Main OR Intraoperative Record IntraOp Document Type FT Summary Primary Physician: Raman HENRY MD Finalized Date/Time: 06/17/21 09:30:46 Pt. Name: TRACIE CATHERINEMIRANDA FerraraB./Sex: 1960 Female Med Rec #: [id number] Physician: Raman HENRY MD Financial #: [id number] Pt. Type: O Room/Bed: / Admit/Disch: 06/12/21 [...] 1 Entry 2 Entry 3 Case Attendee Vale Kay RN, Mikayla Toth Role Performed Anesthesiologist Forest Ranger Technician - Primary Scrub - Primary [employer] Mill Supervisor Time In 06/12/21 12:49:00 06/12/21 12:49:00 06/12/21 [...] Participants Ita Childress RN, Sparks, Micala E, MARTÍN ARMAS, Raman Time Out Complete 06/12/21 12:51:00 Outcomes Met? [...] and tissue Entry 1 Skin Integrity Intact, [place], Warm, and Skin Abnormality No Dry Outcomes [...] of positioning (more content not included)... Normal [facility] [place]enton 06-13-2021 Consent [id number]#1.0 0CD:127 Normal [facility] Discharge Instructionson Discharge Instructions [id number]#1.0 0CD:127 Normal [facility] IntraOperative Documentson 0 06-13-2021 IntraOperative Documents [id number]#1.0 0CD:127 Normal [facility] IntraOperative Documents [id number]#1.0 0CD:127 Normal [facility] CBC w/Indiceson 06-12-2021 Erythrocyte distribution width (RBC) [Ratio] 15.6 % High 10.9-14.2 [facility] Comment on above: Performed By: #### 2 [id number] ####[facility] [address] [place] [address] Hematocrit (Bld) [Volume fraction] 36.8 % Normal 34.0-46.0 [facility] Comment on above: Performed By: #### 2 [id number] ####[facility] [address] [place] [address] Hemoglobin (Bld) [Mass/Vol] 12.5 g/dL Normal 12.0-16.0 [facility] Comment on above: Performed By: #### 2 [id number], [id number] ####[facility] [address] [place] [address] MCH (RBC) [Entitic mass] 28.6 pg Normal 27.0-34.0 [facility] Comment on above: Performed By: #### 2 270028, [id number], 7472527, 8896407 ####[place] [id number] MCHC (RBC) [Mass/Vol] 33.8 g/dL Normal 31.4-36.0 [place] Comment on above: Performed By: #### 2 952414, 74974102, 3408279, 0003773 ####[place] [address]3457 MCV (RBC) [Entitic vol] 84.5 fL Normal 80.0-100.0 [facility] Comment on above: Performed By: #### 2 696371, 11912143, 6563422, 7408439 ####[address] [address] Platelet mean volume (Bld) [Entitic vol] 8.0 fL Normal 6.4-10.8 [facility] Comment on above: Performed By: #### 2 608526, 79451345, 5683016, 9779535 ####[address] [address] Platelets (Bld) [#/Vol] 186.0 E9/L Normal 150.0-500.0 [facility] Comment on above: Performed By: #### 2 581044, 72066773, 1519889, 8872375 ####[place] [address]3457 RBC (Bld) [#/Vol] 4.4 E12/L Normal 4.3-5.9 [facility] Comment on above: Performed By: #### 2 584567, 55305970, 9560469, 6221495 ####[address] [address] WBC corrected for nucl RBC Auto (Bld) [#/Vol] 5.7 E9/L Normal 4.0-11.0 [facility] Comment on above: Performed By: #### 2 667036, 85912133, 7829647, 4887849 ####[facility] [address] [place] [address] CMPon 06-12-2021 Albumin [Mass/Vol] 3.9 g/dL Normal 3.3-5.0 [facility] Comment on above: Performed By: #### 2 030513, 12086463, 8777076, 2169591 ####[place] [address] [place] [address] Albumin/Globulin (S) [Mass conc ratio] 1.2 Normal 1.1-2.2 [facility] Comment on above: Performed By: #### 2 632856, 68980095, 1238262, 2318911 ####[address] [address] ALP [Catalytic activity/Vol] 56 Int._Unit/L Normal 21-98 [facility] Comment on above: Performed By: #### 2 248059, 57810652, 1552049, 8815584 ####[place] [address] [place] [address] ALT No additional P-5'-P [Catalytic activity/Vol] 23 Int._Unit/L Normal 6-46 [facility] Comment on above: Performed By: #### 2 587847, 95587003, 4415345, 9161400 ####[facility] [address] [place] [address] Anion gap [Moles/Vol] 13 mmol/L Normal 6-16 [place] Comment on above: Performed By: #### 2 719706, 01172934, 0794924, 5154808 ####[facility] [address] [place] [address] AST [Catalytic activity/Vol] 18 Int._Unit/L Normal 5-43 [facility] Comment on above: Performed By: #### 2 527115, 14020243, 0653659, 9389056 ####[facility] [address] [place] [address] Bilirubin [Mass/Vol] 0.6 mg/dL Normal 0.0-1.1 [facility] Comment on above: Performed By: #### 2 093675, 86188257, 7822333, 4929117 ####[facility] [address] [place] [address] Calcium [Mass/Vol] 9.0 mg/dL Normal 8.9-11.1 [facility] Comment on above: Performed By: #### 2 310072, 04648344, 9258610, 3280260 ####[facility] [address] [place] [address] Chloride [Moles/Vol] 111 mmol/L Normal 101-111 [facility] Comment on above: Performed By: #### 2 922249, 84775906, 2716123, 9317522 ####[facility] [address] [place] [address] CO2 [Moles/Vol] 25 mmol/L Normal 21-31 [facility] Comment on above: Performed By: #### 2 044190, 63516740, 9581238, 5024298 ####[facility] [address] [place] [address] Creatinine [Mass/Vol] 0.7 mg/dL Normal 0.5-1.3 [place] Comment on above: Performed By: #### 2 334462, 64324341, 4720648, 9501951 ####[place] [address] [place] [address] Globulin (S) [Mass/Vol] 3.4 g/dL Normal 1.4-4.0 [facility] Comment on above: Performed By: #### 2 414307, 12401182, 8862265, 8013647 ####[address] [place] [address] Glucose [Mass/Vol] 99 mg/dL Normal 55-199 [facility] Comment on above: Result Comment: If t his glucose result represents a fasting glucose, interpretation should refer to the following reference range: 55-99 mg/dL Performed By: #### 2 266054, 64317361, 4869878, 9571012 ####[facility] [address] [place] [address] Potassium [Moles/Vol] 3.6 mmol/L Normal 3.5-5.3 [place] Comment on above: Performed By: #### 2 859147, 76052834, 7001549, 4468164 ####[facility] [address] [place] [address] Protein [Mass/Vol] 7.3 g/dL Normal 6.0-7.8 [facility] Comment on above: Performed By: #### 2 530771, 88518367, 1119665, 9856021 ####[facility] [address] [place] [address] Sodium [Moles/Vol] 145 mmol/L Normal 135-145 [facility] Comment on above: Performed By: #### 2 536254, 46720663, 6185286, 1205816 ####[facility] [address] [place] [address] Urea nitrogen [Mass/Vol] 10 mg/dL Normal 5-21 [facility] Comment on above: Performed By: #### 2 768575, 25408522, 4472925, 8481925 ####[facility] [address] [place] [address] Urea nitrogen/Creatinine [Mass ratio] 14 No Units Normal 10-20 [facility] Comment on above: Performed By: #### 2 223494, 16349220, 9809464, 6509229 ####[facility] [address] [place] [address] Consent for Treatmenton 06-02 Consent for Treatment [id number] [place] [id number]#1.0 0CD:127 Normal [facility] Endoscopic Procedure Report - Otheron 06-12-2021 Endoscopic [...] Return to activities:: After 24 hours. Normal [facility] Comment on above: Result Comment: Elec tronically Signed By: Raman HENRY MD\.br\Date and Time Signed: 06/12/21 13:09 EDT Other Comment: Darlin diaz Attachment - attachment storage system not supported [id number] Can be viewed in source systemMissing Attachment - attachment storage system not supported [id number] Can be viewed in source system Endoscopic [...] Gallbladder ultrasound, CBC, CMP and lipase Normal [facility] Comment on above: Result Comment: Elec tronically Signed By: MARTÍN ARMAS, Raman\.br\Date and Time Signed: 06/12/21 13:08 EDT Other Comment: Darlin diaz Attachment - attachment storage system not supported [id number] Can be viewed in source systemMissing Attachment - attachment storage system not supported [id number] Can be viewed in source systemMissing Attachment - attachment storage system not supported [id number] Can be viewed in source systemMissing Attachment - attachment storage system not supported [id number] Can be viewed in source system Inpatient Patient Summaryon 06-12-2021 Inpatient Patient Summary [place] [address] [facility] Clinical Discharge Instructions PERSON INFORMATION Name: [...] Capsules By Mouth every day. Comment: Normal [facility] Lipase Levelon 06-12-2021 Lipase [Catalytic activity/Vol] 23 U/L Normal 13-58 [facility] Comment on above: Performed By: #### 2 688708, 71982966, 3908883, 8845122 ####[facility] [address] [place] [address] Main OR PACU I Recordon 06-02 Main OR PACU I Record PACU Phase I Docum ent Type FT Summary Primary Physician: Raman HENRY MD Finalized Date/Time: 06/12/21 14:39:20 Pt. Name: CATHERINE SHEIKH/Sex: 1960 Female Med Rec #: [id number] Physician: Raman HENRY MD Financial #: [id number] Pt. Type: O Room/Bed: / Admit/Disch: 06/12/21 [...] Dolores De Leon RN 06/12/21 14:39 Normal [facility] Main OR Preoperative Recordo n 06-12-2021 Main OR Preoperative Record Holding Area Document Type FT Summary Primary Physician: Raman HENRY MD Finalized Date/Time: 06/12/21 11:42:13 Pt. Name: CATHERINE SHEIKH Willi/Sex: 1960 Female Med Rec #: [id number] Physician: Raman HENRY MD Financial #: [id number] Pt. Type: O Room/Bed: / Admit/Disch: 06/12/21 [...] By: Rosie Bravo RN 06/12/21 11:42 Normal [facility] Monitor Recordon 06-12-2021 Monitor Record [id number]. 00CD:127 Normal [facility] Outpatient Surgery Discharge Instructionon 06-12-2021 Outpatient Surgery Discharge Instruction [place] [address] Patient Discharge Instructions PERSON INFORMATION Name: TRACIE [...] Haddad- You may receive a survey from [employer] asking you to rate your care experience. Your feedback is important and will help us understand what we do well and how we can improve the quality of care we provide to you, your loved ones and our community. It?s an honor to serve you. Thank you for choosing [facility] HERE ARE THE MEDICATION CHANGES THAT [...] Mouth every day. PATIENT EDUCATION INFORMATION Instructions: Normal [facility] Patient Education - Texton 0 06-12-2021 Patient Education - Text Normal [facility] Progress Note-Physicianon Progress Note-Physician Patient: CATHERINE [...] mmHg (JUN 12) DBP 62 mmHg (JUN 12) SpO2 96 % (JUN 12) Weight 101.2 kg (JUN 12 06:) Height 166 cm (JUN 12 06:) BMI 36.73 (JUN 12:) Pain assessment: Pain Assessment 06/12/2021 13:11 EDT Pain Symptoms Self Report No, able to self report . Respiratory: Adequate air exchange with hoahaoism of preoperative function.. Cardiovascular: Cardiovascular function is stable and has returned to preoperative levels.. Neurologic: Pt has returned to preoperative baseline.. Review / Management Condition: Stable. Assessment Anesthetic outcome No anesthetic complications noted. Plan Transfer/ Discharge: Patient can be discharged from PACU when criteria met. Condition good. Normal [facility] Comment on above: Result Comment: Elec [...] 1 EA, Refill(s) 0, PER PHYSICIAN INSTRUCTIONS, [facility], 166, cm, 04/23/21 [...] data available Respiratory: Adequate air exchange with hoahaoism of preoperative function.. Cardiovascular: Cardiovascular function is stable and has returned to preoperative levels.. Neurologic: Pt has returned to preoperative baseline.. Review / Management Condition: Stable. Assessment Anesthetic outcome No anesthetic complications noted. Plan Transfer/ Discharge: Patient can be discharged from PACU when criteria met. Condition good. Normal [facility] Comment on above: Result Comment: Elec tronically Signed By: Albert Dunbar JR, DO eGFRon 06-12-2021 GFR/1.73 sq M.predicted among blacks MDRD (S/P/Bld) [Vol rate/Area] mL/min/{1.73_m2} Normal >=59 [facility] Comment on above: Order Comment: Order added by Discern Expert. Result Comment: eGFR is race adjusted. AA=. Performed By: #### 2 931757, 83679709, 6316929, 0804811 ####[facility] [address] [place] [address] GFR/1.73 sq M.predicted among non-blacks MDRD (S/P/Bld) [Vol rate/Area] mL/min/{1.73_m2} Normal >=59 [facility] Comment on above: Order Comment: Order added by Discern Expert. Result Comment: Film Processing Utility Worker precious kidney disease could be indicated at eGFR's of less than 60 mL/min/1.73m2. Kidney failure is indicated at less than 15 mL/min/1.73m2. Performed By: #### 2 982373, 65120019, 3348098, 6316035 ####[facility] [address] [place] [address] Progress Note-Physicianon Progress Note-Physician Patient: CATHERINE SHEIKH [...] 1 EA, Refill(s) 0, PER PHYSICIAN INSTRUCTIONS, [facility], 166, cm, 04/23/21 [...] review: No qualifying data available . Plan [place] [employer] Anesthesiologists (ASA) physical status classification: Class II. Anesthetic Preoperative Plan Anesthesia: Monitored anesthesia care and general anesthesia if required.. Anesthetic plan, risks, benefits, and alternatives discussed with the patient and/or family. Pt. and/or family present and agree to proceed as planned.. Discussed the importance of abstaining from tobacco products, and offered counseling if desired.. Normal [facility] Comment on above: Result Comment: Elec tronically Signed By: Albert Dunbar JR, DO.wes\Date and Time Signed: 06/11/21 14:42 EDT Vital Signs Date Time Vital Sign Value Performing Clinician Temitope tamez 12-27-2023 12:30-0500 Body height 165.1 cm [facility] 12-27-2023 12:30-0500 Body mass index (BMI) [Ratio] 36.3 kg/m2 [facility] 12-27-2023 12:30-0500 Body temperature 98.2 [degF] [facility] 12-27-2023 12:30-0500 Body weight 99.1 kg [facility] 12-27-2023 12:30-0500 Heart rate 74 /min [facility] 12-27-2023 12:30-0500 Respiratory rate 18 /min [facility] 12-27-2023 12:30-0500 SaO2% (BldA) [Mass fraction] 97 % [facility] Encounters Encounter Date Encounter Type Care Provider Facility Start: 02-15-2024 End: 02-15-2024 ambulatory VAIL FAWWAD Not Available Start: 02-02-2024 End: 02-02-2024 ambulatory VAIL FAWWAD Not Available Start: 01-26-2024 End: 01-27-2024 ambulatory DEBORAH GIPSON Not Available Start: 01-04-2024 End: 01-04-2024 ambulatory VAIL FAWWAD Not Available Start: 01-01-2024 End: 01-01-2024 ambulatory CARLA BLAND Not Available Start: 12-27-2023 End: 12-27-2023 ambulatory [facility] Work Phone: Start: 12-27-2023 End: 12-27-2023 Patient encounter procedure [facility] Work Phone: Start: 12-16-2022 End: 12-17-2022 ambulatory VAIL H FAWWAD Facility:[facility] Start: 09-24-2022 End: 09-25-2022 ambulatory VAIL H FAWWAD Facility:[facility] Start: 05-13-2022 End: 07-09-2022 ambulatory FRANCIA Whalen APLING Facility:[facility] Start: 04-08-2022 End: 04-09-2022 ambulatory VAIL H FAWWAD Facility:[facility] Start: 03-25-2022 End: 03-26-2022 ambulatory VAIL H FAWWAD Facility:[facility] Payers Date Payer Category Payer Unknown [id number] 1960 Self-pay [id number] 1960 Unknown [id number] 2.16.84 [id number] 1960 Unknown [id number] 2.16.84 0.1.214206.3.579.2.593 1960 Unknown [id number] 2.16.84 0.1.569743.3.579.2.593 1960 Unknown [id number] 2.16.84 0.1.727263.3.579.2.593 1960 Unknown [id number] 2.16.84 0.1.714927.3.579.2.593 1960 Unknown [id number] 2.16.84 0.1.942922.3.579.2.1259 1960 Unknown [id number] 2.16.84 0.1.135174.3.579.2.1259 1960 Unknown [id number] 2.16.84 0.1.402539.3.579.2.1259 1960 Unknown [id number] 2.16.84 0.1.313656.3.579.2.1259 1960 Unknown [id number] 2.16.84 0.1.645663.3.579.2.1259 1960 Unknown [id number] 2.16.84 0.1.917241.3.579.2.1259 Self-pay Self Pay [id number] Unknown [id number] 2.16.84 0.1.921520.3.579.2.593 Unknown [place] BC/BS [id number] Unknown [place] VALENTIN [id number] Unknown Melvina Barrientos VALENTIN [id number] Social History Date Type Detail Facility [facility] Work Phone: Start: 1960 Sex Assigned At Female F [facility] Clinical Note 04-08-2022 Note Date & [...] authenticated by: MAKENZIE GOLDMAN Date: 2022-04-08 17:50 [facility] Clinical Note 10-09-2021 Note Date & Type [...] Sister and Brother. Hypertension: Sister. Hypothyroidism: Sister. [facility] Comment on above: Result Comment: Elec tronically Signed By: KINZA ARMAS, Raymond Zaidi\Date and Time Signed: 10/09/21 21:37 EST Clinical [...] lesion(s) present No Hyperplastic polyp(s) present No [facility] History and physical note 08-12-2021 Note Date & Type Note Facility 06-13-2021 Note [id number] #[id number]:127 [facility] Evaluation note Note Date & Type Note Facility Evaluation note No assessment information availa [facility] Work Phone: Summary Purpose Family History No [...] section and content) DATE CREATED AUTHOR 05/24/2022 [facility] DATE CREATED AUTHOR AUTHOR'S ORGANIZ ATION 12/20/2022 [facility] DATE CREATED AUTHOR AUTHOR'S ORGANIZ ATION 02/16/2024 [facility] EPIC Care Teams (unrecognized sec [...] BE BASED ON THE PRIMARY CLINICAL RECORDS. [employer] provides no warranty or guarantee of the accuracy or completeness of information in this document.
[2024-05-17 10:21] LABS: TSH W/ REFLEX FT4 2.922 uIU/mL (0.358-3.740)
== END 2024-05-17 09:15 | disposition home or self-care (01) ==
LOC: LAB 09:15
PROVIDERS: PCP Internal Medicine; Visit Provider Internal Medicine
DX: E03.8 Other specified hypothyroidism (principal)
CPT/HCPCS: 36415; 84443

== ENCOUNTER 2024-05-24 08:46 | Outpatient (OUT) | payer OTHER, SELFPAY ==
--- NOTE | 2024-05-24 08:55 | CT_ITS ---
[address] [address] Patient Name: JUNI HODGES MRN: [id number] date: 1960 Sex: F Assigned Patient Location: CT Current Patient Location: Accession/Order Number: [id number] Exam Date: 05/24/2024 09:00 Report Date: 05/25/2024 05:43 At the request of: SHAIKH VALENTE Procedure: CT chest wo con EXAMINATION: CT chest wo con HISTORY: Multiple Lung Nodules ; follow-up lung nodules COMPARISON: CT chest 12/16/2022, 04/16/2021 TECHNIQUE: Axial, Coronal, and Sagittal images were created without the administration of IV contrast material. Dose reduction techniques were achieved by using automated exposure control and/or adjustment of mA and/or kV according to patient size and/or use of iterative reconstruction technique. FINDINGS: LUNGS: Several small 5 mm or smaller nodules scattered within the lungs; unchanged. No new nodules or acute infiltrates. PLEURA: No mass, effusion, or pneumothorax. VASCULATURE: No abnormality. MO: No mass or pathologic adenopathy. MEDIASTINUM: No mass or pathologic adenopathy. CARDIAC: No enlargement, pericardial thickening, or pericardial effusion. Coronary Artery calcifications: AORTA: No aneurysm or dissection. CHEST WALL: No mass or axillary adenopathy BONES: No bone lesion or fracture. LIMITED ABDOMEN: Several small stones within noninflamed gallbladder. Limited images of the upper abdomen. OTHER: Negative. CT/CT chest wo con IMPRESSION: 1. Lung-RADS 2- Benign Appearance or Behavior. Nodules with a very low likelihood of becoming a clinically active cancer due to size or lack of growth. Follow-up CT Chest in 1 year if patient is at increased risk for lung cancer. Electronically authenticated by: CELINE SAXENA Date: 05/25/2024 05:43
--- NOTE | 2024-05-24 08:55 | XR_ITS ---
[address] [address] Patient Name: JUNI HODGES MRN: [id number] date: 1960 Sex: F Assigned Patient Location: CT Current Patient Location: CT Accession/Order Number: [id number] Exam Date: 05/24/2024 09:10 Report Date: 05/24/2024 10:18 At the request of: SHAIKH VALENTE Procedure: XR DEXA axial skeleton EXAMINATION: XR DEXA axial skeleton HISTORY: Osteoporosis COMPARISON: DEXA bone densitometry 04/02/2021 TECHNIQUE: Dual-energy X-ray absorptiometry (DXA) was performed. FINDINGS: SPINE ANALYSIS: Average bone mineral density is 1.536 g/cm2. T-score (standard deviation relative to young adult mean): 3.0 . +5.3% change since prior study. HIP ANALYSIS: Lowest bone mineral density is within the left femoral neck, 0.872 g/cm2. T-score (standard deviation relative to young adult mean): -1.2 . -2.6% change since prior study. XR/XR DEXA axial skeleton IMPRESSION: World Health Organization Classification: Osteopenia - Moderate Fracture Risk FRAX: Cannot calculate. Pharmacologic treatment recommendations * No uniform recommendation applies to all patients. Management plans must be individualized. * Consider initiating pharmacologic treatment in postmenopausal women and men >= 50 years of age who have the following: Primary fracture prevention: * T-score <= - 2.5 at the femoral neck, total hip, lumbar spine, 33% radius (some uncertainty with existing data) by DXA. * Low bone mass (osteopenia: T-score between - 1.0 and - 2.5) at the femoral neck or total hip by DXA with a 10-year hip fracture risk >= 3% or a 10-year major osteoporosis-related fracture risk >= 20% (i.e., clinical vertebral, hip, forearm, or proximal humerus) based on the [place]-adapted FRAXregistered model. Secondary fracture prevention: * Fracture of the hip or vertebra regardless of BMD [4, 5]. * Fracture of proximal humerus, pelvis, or distal forearm in persons with low bone mass (osteopenia: T-score between - 1.0 and - 2.5). The decision to treat should be individualized in persons with a fracture of the proximal humerus, pelvis, or distal forearm who do not have osteopenia or low BMD [12, 13]. Haylee MS, Chris SL, Anival KL, Deven EM, Balwinder KG, AJ, Justo ES. The clinician's guide to prevention and treatment of osteoporosis. Osteoporos Int. 2021;33(10):9660-4911. doi: 10.1007/l63395-742-67900-t. Epub 2021Feb 27. Erratum in: Osteoporos Int. 2021May 29;: PMID: [id number]; PMCID: [id number]. Electronically authenticated by: CELINE SAXENA Date: 05/24/2024 10:18
--- OUTSIDE RECORDS SUMMARY | 2024-05-24 09:08 | XMS_ITS | CCD ---
Author Organization [facility] Care Team Providers Care Saturation Equipment Operator Name Role Phone FAWWAD, VAIL H [...] H Admitting Unavailable CARLA BLAND Attending Unavailable JAYDENWWAD, VAIL Attending Unavailable DEBORAH GIPSON Attending Unavailable DEBORAH GPISON Referring Unavailable FAWWAD, VAIL Attending Unavailable FAWWAD, VAIL Attending Unavailable FAWWAD, VAIL Attending Unavailable Medications [...] SHAHID MOLINA Date: 2022-12-16 14:13 Normal [facility] VICKEY - VITAMIN Don 12-16-2022 VIT D 25-OH 28.8 ng/mL Normal [facility] Comment on above: Performed By: #### D ATVITD #### [facility] [address] [place] [address] Dr. Emmanuel Hillman VIT D RANGES SEE BELOW Normal [facility] Comment on above: Result Comment: <20 ng/mL Vit D deficient 20 - <30 ng/mL Vit D insufficient 30 - 100 ng/mL Vit D sufficient >100 ng/mL Potential Toxicity Performed By: #### D ATVITD #### [facility] [address] [place] [address] Dr. Emmanuel Hillman GLYCOHEMOGLOBIN A1Con 2022 ADA RECOMMENDATION SEE BELOW Normal [facility] Comment on above: Result Comment: ADA RECOMMENDED LIMIT 4.0 - 6.0 ADA THERAPEUTIC TARGET < 7.0 ACTION SUGGESTED > 7.0 Performed By: #### D ATA1C #### [facility] [address] [place] [address] Dr. Emmanuel Hillman Glucose [Mass/Vol] 108 mg/dL Normal [facility] Comment on above: Performed By: #### D ATA1C #### [facility] [address] [place] [address] Dr. Emmanuel Hillman HbA1c (Bld) [Mass fraction] 5.4 % Normal 4.5-6.2 [facility] Comment on above: Performed By: #### D ATA1C #### [facility] [address] [place] [address] Dr. Emmanuel Hillman LIPID PROFILEon 12-16-2022 CHOL-HDL RATIO NORM SEE BELOW Normal [facility] Comment on above: Result Comment: 3.3 - 4.4 LOW RISK 4.4 - 7.1 AVERAGE RISK 7.1 - 11.0 MODERATE RISK >11.0 HIGH RISK Performed By: #### L IPID, TSH, LIVER #### [facility] [address] [place] [address] Dr. Emmanuel Hillman Cholesterol [Mass/Vol] 148 mg/dL Normal <=200 [facility] Comment on above: Performed By: #### L IPID, TSH, LIVER #### [facility] [address] [place] [address] Dr. Emmanuel Hillman Cholesterol in HDL [Mass/Vol] 44 mg/dL Normal 40-60 [facility] Comment on above: Performed By: #### L IPID, TSH, LIVER #### [facility] [address] [address] [address] Emmanuel Hillman Cholesterol in LDL [Mass/Vol] 79.0 mg/dL Normal [facility] Comment on above: Performed By: #### L IPID, TSH, LIVER #### [facility] [address] [address] [address] Emmanuel Hillman Cholesterol.total/Cho lesterol in HDL [Mass ratio] 3.4 {ratio} Normal [facility] Comment on above: Performed By: #### L IPID, TSH, LIVER #### [facility] [address] [address] [address] Emmanuel Hillman HDL NORMAL > or = 60 mg/dl - LO W CARDIOVASCULAR RISK <40 mg/dl - HIGH CARDIOVASCULAR RISK Normal [facility] Comment on above: Performed By: #### L IPID, TSH, LIVER #### [facility] [address] [place] [address] Dr. Emmanuel Hillman LDL CALC NORMAL SEE BELOW Normal [facility] Comment on above: Result Comment: <100 mg/dl OPTIMAL 100 - 129 mg/dl NEAR OR ABOVE OPTIMAL 130 - 159 mg/dl BORDERLINE HIGH 160 - 189 mg/dl HIGH >190 mg/dl VERY HIGH Performed By: #### L IPID, TSH, LIVER #### [facility] [address] [address] [address] Emmanuel Hillman Triglyceride [Mass/Vol] 125 mg/dL Normal <=150 [facility] Comment on above: Performed By: #### L IPID, TSH, LIVER #### [facility] [address] [address] [address] Emmanuel Hillman VLDL CALC 25.0 mg/dL Normal [facility] Comment on above: Performed By: #### L IPID, TSH, LIVER #### [facility] [address] [address] [address] Emmanuel Hillman LIVER PROFILEon 12-16-2022 Albumin [Mass/Vol] 3.7 g/dL Normal 3.4-5.0 [facility] Comment on above: Performed By: #### L IPID, TSH, LIVER #### [facility] [address] [place] [address] Dr. Emmanuel Hillman Albumin/Globulin [Mass ratio] 0.9 {ratio} Normal [facility] Comment on above: Performed By: #### L IPID, TSH, LIVER #### [facility] [address] [place] [address] Dr. Emmanuel Hillman ALP [Catalytic activity/Vol] 69 U/L Normal 46-116 [facility] Comment on above: Performed By: #### L IPID, TSH, LIVER #### [facility] [address] [place] [address] Dr. Emmanuel Hillman ALT [Catalytic activity/Vol] 34 U/L Normal 14-59 [facility] Comment on above: Performed By: #### L IPID, TSH, LIVER #### [facility] [address] [place] [address] Dr. Emmanuel Hillman AST [Catalytic activity/Vol] 17 U/L Normal 15-37 [facility] Comment on above: Performed By: #### L IPID, TSH, LIVER #### [facility] [address] [place] [address] Dr. Emmanuel Hillman BILI, CONJUGATED 0.1 mg/dL Normal 0.0-0.2 [facility] Comment on above: Performed By: #### L IPID, TSH, LIVER #### [facility] [address] [place] [address] Dr. Emmanuel Hillman Bilirubin [Mass/Vol] 0.4 mg/dL Normal 0.2-1.0 [facility] Comment on above: Performed By: #### L IPID, TSH, LIVER #### [facility] [address] [place] [address] Dr. Emmanuel Hillman Globulin (S) [Mass/Vol] 4.3 g/dL Normal [facility] Comment on above: Performed By: #### L IPID, TSH, LIVER #### [facility] [address] [place] [address] Dr. Emmanuel Hillman Protein [Mass/Vol] 8.0 g/dL Normal 6.4-8.2 [facility] Comment on above: Performed By: #### L IPID, TSH, LIVER #### [facility] [address] [address] [address] Emmanuel Hillman TSHon 12-16-2022 TSH 5.447 uIU/mL Critically high 0.358-3.740 [facility] Comment on above: Performed By: #### L IPID, TSH, LIVER #### [facility] [address] [address] [address] Emmanuel Hillman MG MAMM SCREEN 3D MEKA CADon 09-24-2022 MG MAMM SCREEN 3D MEKA CAD Patient: CATHERINE SHEIKH Exam Date: 09/24/2022 : 1960 Gender:F Ordering : SHAIKH Quintin CHAPIN . Admission #: [id number] Family : Order #: [id number] CLICK HERE TO VIEW EXAM RADIOLOGY REPORT [...] breast cancer at age 69. LOCATION: [facility] BREAST COMPOSITION: Scattered areas fibroglandular density. FINDINGS: [...] Molina M.D. on 09/24/2022 at 13:35 Normal [facility] LIPID PROFILEon 03-25-2022 CHOL-HDL RATIO NORM SEE BELOW Normal [facility] Comment on above: Result Comment: 3.3 - 4.4 LOW RISK 4.4 - 7.1 AVERAGE RISK 7.1 - 11.0 MODERATE RISK >11.0 HIGH RISK Performed By: #### L IPID, TSH #### [facility] [address] [address] [address] Emmanuel Hillman Cholesterol [Mass/Vol] 149 mg/dL Normal <=200 [facility] Comment on above: Performed By: #### L IPID, TSH #### [facility] [address] [address] [address] Emmanuel Hillman Cholesterol in HDL [Mass/Vol] 44 mg/dL Normal 40-60 [facility] Comment on above: Performed By: #### L IPID, TSH #### [facility] [address] [address] [address] Emmanuel Hillman Cholesterol in LDL [Mass/Vol] 87.6 mg/dL Normal [facility] Comment on above: Performed By: #### L IPID, TSH #### [facility] [address] [address] [address] Emmanuel Hillman Cholesterol.total/Cho lesterol in HDL [Mass ratio] 3.4 {ratio} Normal [facility] Comment on above: Performed By: #### L IPID, TSH #### [facility] [address] [address] [address] Emmanuel Hillman HDL NORMAL > or = 60 mg/dl - LO W CARDIOVASCULAR RISK <40 mg/dl - HIGH CARDIOVASCULAR RISK Normal [facility] Comment on above: Performed By: #### L IPID, TSH #### [facility] [address] [address] [address] Emmanuel Hillman LDL CALC NORMAL SEE BELOW Normal [facility] Comment on above: Result Comment: <100 mg/dl OPTIMAL 100 - 129 mg/dl NEAR OR ABOVE OPTIMAL 130 - 159 mg/dl BORDERLINE HIGH 160 - 189 mg/dl HIGH >190 mg/dl VERY HIGH Performed By: #### L IPID, TSH #### [facility] [address] [address] [address] Emmanuel Hillman Triglyceride [Mass/Vol] 87 mg/dL Normal <=150 [facility] Comment on above: Performed By: #### L IPID, TSH #### [facility] [address] [address] [address] Emmanuel Hillman VLDL CALC 17.4 mg/dL Normal [facility] Comment on above: Performed By: #### L IPID, TSH #### [facility] [address] [address] [address] Emmanuel Hillman TSHon 03-25-2022 TSH 3.614 uIU/mL Normal 0.358-3.740 [facility] Comment on above: Performed By: #### L IPID, TSH #### [facility] [address] [address] [address] Emmanuel Hillman TSH RANGE SEE BELOW Normal [facility] Comment on above: Result Comment: <0.3 4 UIU/ml HYPERTHYROID 0.34-5.60 UIU/ml EUTHYROID >5.60 UIU/ml HYPOTHYROID Performed By: #### L IPID, TSH #### [facility] [address] [place] [address] Dr. Emmanuel Hillman [facility] October 11, 2021 SHAIKH VALENTE, [address] [place] [address] Re: CATHERINE SHEIKH Date of : 1960 Thank you for your referral of Catherine Sheikh who was seen on consultation for abdominal pain, Right upper quadrant pain and nausea with vomiting. I have enclosed my consultation note for your review. I will be happy to follow Catherine. Sincerely, Raymond Davalos MD General Surgery Normal [facility] Ambulatory Clinical Summaryo n 10-09-2021 Ambulatory Clinical Summary {[id number]}CD:[id number] Normal [facility] Gastroenterology Office/Clin ic Noteon 08-19-2021 Gastroenterology [...] after patient consented to recording for virtual certified legal secretary specialist and provider reviewed before signing. ORALIA: Dona Ramires. Follow-up With When Contact (more content not included)... Normal [facility] Comment on above: Result Comment: Elec tronically Signed By: Dona Ramires R\.br\Date and Time Signed: 08/15/21 14:52 EDT\.br\Electronically Co-Signed By: Raman HENRY MD\.br\Date and Time Co-Signed: 08/19/21 09:50 EDT Reminderson 08-19-2021 Reminders - From: Raman HENRY MD To: [facility] - Clinical; Sent: 08/15/2021 13:23:07 EDT Show up: 08/15/2021 13:23:00 EDT Subject: Ambulatory Reminder repeat colonoscopy in 5 years Reminder/Recall Normal [facility] Coding Summary.on 07-12-2021 Coding Summary. CD:[id number] Gh 0bWw+PGhlYWQ+PK6RKRNpK 98ijBWisI2RF6pHOM4NXAP LZMKIBK9BCT7vwOY8MUokB 2VybiAv RgvhfAVvVX41HAq3JNQ4wU kmLGierN5ttPBsD2q5HrIw DQ89yG92ZEuwEYZaHmK1Of ZpbjsgbWFy X1qxBtKdzBOuLrv+PHRhYm xlIHdpZHRoPScxMDAlJyBz jSshGK9rAy9lVDYnNZTipI xhcHNlOiBj q5ciWDPeXGmgIQ3fsTqpZ7 IemFX3WEYuk9v6Rm24qJS+ XOMiMWH6jTzqZCdeo510Fy Yhl3vpFCS7 gBZuPItwHMI9Z72it9Q6MJ KyXYCoYDA1cWT6tS0auBql doazG0OatOWvDlQ9RDT1lH XmuJ9pdYcj cpnqhH9cKzb+X88XJH0WUS HDHH9HBit3S7HvLdnwxGH+ TP24TLPhUB60kTDejLZzt1 slpTh7XuUv UADzVCK9xWceNYsry3FaZZ YjW72gcYOib6N1OYHlaBdb oTNbJxOrbDM1xO2cYFbmrp afs0supuis Oobkd2scbb65wP05T53wOP zbSVWkCGD3HUCpBFDyhXms jx2efI6qCt4+SFuav0bto7 jitZj7ZvTu DRIgfyCdmWkhKDI9i2GwFf 56E0XlwTkqf5KbWol5xm84 zBUtr4R1nLP3ARtbBWJcgJ 2cADiqBjE2 KKOhQuQudX55dRMeQDcsBk 3ueFybiNadVY4qIMUqnmny NMLnnD1yCAYkpRJpcJdaKF 4wNTBpbjtm j879JfKiQUH8FOJwzFKkD2 IgcL3aHuZdTLWbGAGnH8Lb jNUbLMqpL116OWpdOnL1OF HredOkX8Ar CYXjmUbcFwM4f6M5Xm7Ch1 MprqstXDS4ADjlPDQ0GpE7 VcLcQvV6Q0PwFhh8YECjhI ptVU5kP4Np TWJesjuumsmuaKX8GKUbRX IijM54wENoABzeYs3gn8C1 r659PZLbZGCkuS51Qy2oqP ogMTBwdCBU jM8cdzsgp8didxpiMoNjJJ KqHEx3WPx4HRQmoGmiFcFc ZTT1MlP1HKH3jHKqdR9doF qcwtpfwX5u Oyc+Z60oaL3xVHE3WME9ix nyMDCwpmEsBG05PA56Y0Dd PjwvdGFibGU+PGRpdiBzdH poTC6aCdYc w4djp1DwCQcwH1IwHQNaKV ifJcs0HPJcRAS4wTP2lI2t VJKpMAdda1E4iIX2V9Rpps Qvrc9rp7uj GYIsONjxD53qhMJbq0H9QM EveFB5QIEmxWruLbQueF02 Oyc+AQJqcJvvo8YlSewnf7 chq9heyMi3 VnMbFXIsvnUldUjcEUQ2l1 PrFz27Q75nZHwyYHVbWTKe OKBpWUZttQrown9njW2nOd 8+PGNvbCB3 fAD2zV3xTCRlGgC7SXriG7 60YaVeyXBgQbvla0cqi7gd uJd9KqDaGNYjunKakCesYI U0k0MjBs81 W07oAIjoXRDlZUGqKKItNL NekJmalb7tgZ8xDm9+PC9j i1jrfe23eN38mPW+PHRkIH B9lTjbVTqy IBMxbC7sNRlsWwU3IHKfXo AdeA66aEOoGNhtMx3blOnt yLnfUX1dVAMstetzh987Hd Lob3dtGLWw fUGdNMzaXCM4H47zw9B7SI AfZRCzMUM2zDF6qD8yhUka bjogbGVmdDsgdmVydGljYW gfBSqfX364 IHRvcDsnPlBhdGllbnQgTm WuZKy8X2EoLwr0RUUmoGay KD6tjHEtVUdwXo9kbVpumC gvGU2gGOZz hssts831MyJhq4wrMPWkqM HwMJrrMNE2Q78rx0Z1GKVy ONOaGAH6wPQ5tE0ccTgjhq ogbGVmdDsg wjVajLhcIJgrKIzjC424CP RvcDsnPkJpcnRoIERhdGU6 EA95OB48uSYdy7P3zWV8B3 BhZGRpbmct kyjrcXH9WZLgMAOuyG47Bb 6ipJneJq6dFZZzELD8OQAt lCTxX6QpuN3qQnElUQIaZG JvG1CgeLFz FAwcR056LYlvGwC1UZGjfv RjG4NqUDOuvMekChH1e3C5 Mx2PC8I4DQ29CU36jEGwq8 W7aWA2Z5Ny OLMbcatagbsdlUC5IGTyGK ErdF65Rh4ubVhpUe6sGOGe PFD2GGAelTCkC9FwsS5mFk AjMDAwMDAw Y1OcpDNrQHofY395LKpxPn Y7GEJtkvWjV5MzNWOfxRhw JeA5o7Q7Sr7YTWm1RY35OZ 34fPXqw6I8 oVE2U5CuNRJzjnwkzdhvvC L9QUZdKCIkgW76Af5jxNfo Aj4cPEQpDCK6GGNoeUIzC0 KraQ8jDwXe TGOjKDIdR7DejAEzLIgdR7 55WLgkAcI3YDEectLfT5Qe RKYwfXkyIxP1d4V3Xj4QXQ UrAC65BLV3 hSU7AA65AG86N9HoDwuciP FibGU+PHRhYmxlIHdpZHRo TBixLFTdSlOtrBmmHD0uGl 9yZGVyLWNv dTgfvAUzHtKhg1ouCZAsMI qrMY9dkVhxI2NdoAF6OZHi j7l3Ae96B56mE8DvrKZ+PG BaaXP2wUY9 zL7eBhWbBrY5HBciE415Tr YzzLJbLwjcm5iyt3jszUq4 LcE0QVWvvxDwvWzoCIL8o1 YkCm33A59b IHdpZHRoPSIxNSUiIHZhbG dmfj3jgQ3nKe2+PGNvbCB3 pZR5nT2rDwBcRfV5RWxqM2 49InRvcCIv Ptjbj2frv0bluJb3AwGlHN CvcmDupValNZF0p2UrNm24 S1MelNcxc2DvVaa7jw80wS Ahk1A6fBC7 D2QwBRTmszbedGHcrCufKQ 5eFLVkmnpxOOTheZ4pXGPe Q5g0IcRsJcM7GGvbY5Dloc F2WHSadDPf VFpxHZL5E63ds2U9GZAzMI OkKYC0gTX6oM4hmGitavyl bGVmdDsgdmVydGljYWwtYW mhA304JHSg cLdlXZAfrP9vMPBofPEogL tvYJ8iGOCpdgaiQeDMN1gw XQ1NFuGQYG97RX75tIRro5 L9fJL8A4Sj JXEwxkuhphxjgDM9QZHvHZ JclM32iFHkCXziJy3mt9K0 b395KZGyXTWrxN67Fn3vtI ogMTBwdCBU wA2vzpgau8kthoedZlVoZA TiAHp0ZLz6EZUecVfvKoBo BSU7TfT0JZT1fXVriS7ujJ hbfpfbhI9i Oyc+LYPdBCEnEMl7ILbyvY Q+YFSuXHC8tElvNUfwUBPv aT6tENKvE9h4MvQjClD5RF zsM9OyRZEu dnmrXm39nB8qXkCwZoZ1UO hwF3GexsJ5XBYaxZFaYHqa QUM4A92nk8B5FJTeRUPnOL R5bTP5mP9o bGlnbjogbGVmdDsgdmVydG ueUEzrBQlhI756XBTxyVko NhDbYZvaKEHaRM83CM47tB Emk0G3fMP5 C8HgFLWxjylnzdwrcWV6OW DoYNKmsK16gYWiRWpbMc0k o1J7k645OCIsBPNcmX06Kn 9udDogMTBw vMLPnV6goiwpp0xftcquBb SkKLHgTUn5MZi6CTYolZwt ZcBlFJQ3XiA4OXB9aZBgoQ 1hbGlnbjog qR5wQog+TyWySRbfHR49KX 41qGIux9B7gUX3W3TgRFQo veoctcopiFE3FIFxCXZtpA 47cGFkZGlu Pz5le0Z9f332DJJvWBBawQ 31Gm8gjBngZUGdhBKIwV7j qcksi8hfnvzfPjJvEDIcXY e2MXb7KCPl pJmoTqAkKNX5OdE3ZSW1jW GstF7euKmtlpqkpB9rPvc+ D1E3aVR7vMWzqXtciRI+PC 49ix12F2Bd SmtvYqj4QRFhGOC6dXQ8mB 0yIGLeGHysl6N9hMK1L3Yu oyJviw8aa7cxWFXlOEzcY8 9biXVev8K3 GGJgpLI7VDDwkYasWgOsxO 93Oyc+UUWcdPnud9KnNgeo d5jto2meuOd9EwMbDRKlrs FsaWduPSJ0 z8VsDh24R81lPLwiXWUrBE OjOYBzKBBtyOllaz3pqO4h Ii8+ZEPatOK6fNC7zX2xKx PoKcD1NSwn J703YeKgbMQhYthbx9vzn6 fbsTn5KqRtIPJxdfIhtLlr OVV4q8UuAe58H5JleHznr1 LbZbq7vt18 bIBxd5B9lOA5L8ScVTKoic anzINpsInzDB4fMLKgileb NFMmiZ0wBANgX0y5RiGrTl Y2OKkbS6Ts zaM1CWFspOBjRFKrcPTJvB 9gimnst5peobegUnQgJSBd JRo5TKz1QDOiiYwbLhHoOZ H6CpV3AFC9 xLRkyI6pbUpcwdngjI3uQb c+TGu8q7rhqPHvAE6foJX7 DV46RF21tGNdx4I8dVX2N2 BhZGRpbmct widtfRJ9KWWvJJQpdL35Jj 1wwPjnNz2pARHkFMZ0XIKq oDWjR2SbcF1sYxSqUJMfFZ EiL7JvbQQp ADjvL351BOidDfM4LSXcyr JeN3QyGNTisMeaXjR9l1X3 Kc1HBQ05CF58HK91iYDcz9 J0vWI8D3Ny HFMnlnrywoqddVR4UMRkWE PzoU47Rg9dbNywIt2zCRSn JJL5MPYlwYFxT7MxiF4qFb AjMDAwMDAw C7JthDWaQTwzE930QQqmAt M7OUEchqRxZ8RdVZEnbXwr XwR4q2V6Fa1VJz54VJ92AB 65nUNqz3W8 zKH3T2VtCCNhughmxlfdtH A2JAJfXXSnzX95Ui2xoSoa Ll7cXNBqPPZ0STNvoURhN3 UynC9zPyCi KRXdVGLvI4SnzVCuRObqQ4 78RWhvCuJ0EYNpniFnB0Ch KJHmqCykFeP1j6B4Ik9ISM djbus7L4Yr PjwvdHI+VC67XOHnVW68pL YrmTSfb7hftWm4PzCtVSEb SUD4qGvcLOeuy6WwLNTlD1 7hnDScs2R6 IGNv (more content not included)... [facility] US Abdomen, Limitedon 2020 US Abdomen, [...] Singh MD Transcribed by: VIRGIL Technologist: CARRIE [facility] Consent for Treatmenton 06-03 Consent for Treatment [id number]#1.0 0CD:127 [facility] IntraOperative Documentson 0 06-25-2021 IntraOperative Documents [id number]#1. 00CD:127 [facility] Postoperative Documentson Postoperative Documents [id number]#1.0 0CD:127 [facility] Coding Summary.on 06-17-2021 Coding Summary. CD:[id number] Gh 0bWw+PGhlYWQ+IJ2XEYRxC 20hqVXcnD9AS0hDKQ2ECME IVMFNHU3KHX2jfPH2KQpqF 2VybiAv ZkrbzYUfSA62AGu8VEM0lK rpGOhixU8hdGZfQ7h4NvTx PX58lA70ZRmdCBUsQkR2Ae ZpbjsgbWFy G9dpWcZgaLQqDtr+PHRhYm xlIHdpZHRoPScxMDAlJyBz hJutPQ0pZr9iZDEjVVNogN xhcHNlOiBj j2hoTBHpNZqmMP6wdUcjE0 EvzAT2IBSlg0k8Az26jQN+ PEFsUZN8dGlzLFxyg741Ki Pjr1llCVL9 iJPvDPpoLEZ3G65kg8I6HD WaEZPmBSN3dKJ5bT5geTnv zdifM9DluTRxLsU4SLQ2aU KuyV5mwZrv xbrbvR6aDqc+O56ATN8OKZ PYBM8OXzg1G2CsCaphrOI+ ST23BODqUH80dVPqoZNjp7 pkwNx1UrZg KWKjSLG9yGfzODkxp5GcKY OuM22zxALdm3F1MVVdqUxm aHLzCaYzwLQ4kH1ySPggzv bps3lfkbpt Qjkif5oqrb11jG86R28fFV xzSAXlCER5WZMxINAxtBmp ba7cgC0kJg9+PQkzp2kit0 kisUe4UvBc LDQzkzOcsQfeMWR2n7CrAv 01B5HyaPglm7GaYjn9gf69 lWZnt2G8vES1KEtwGEKqqE 4kVDfkOiJ8 AOXmBfBubP67gETyFSxfGq 7unFzeiJbjDZ3fUOUgkgzd IEVvfI6oOYQtiQYwcLsiPO 4wNTBpbjtm k037KjOmPTE8TDZamODgD6 CuzN5xUqBzBYYkWEKgF2Yt tLSvOLzlQ974EFghYiN2EM CwurNmW9Fs YVPxiQcfLmT5v7O6Fz6Ul0 UitnlyTGN1KPtoJHD0ZeV9 SxFgGlG5X9CrYep5VGHuqB npGD1tN1Qi MSQvwxgczffveXY2NKVwYB ZnwR31bDAtIUuwMk9dv4J0 z288NMToYCKckQ32Zq7erE ogMTBwdCBU sL4ihlmom9fwsntbOaCoDD DiNCv7SSt5BDWekZfmMmMy BGR3CbY5QTK9gFSnlK4zjV hcobxikU5l Oyc+U82apS6aFZF8FHE5of kjTCJdenHkFT87VQ69Q5Uz PjwvdGFibGU+PGRpdiBzdH urAK5iCaLf l4knk6TiCRyuJ3NlQATwQH doXja0GHIsSWA3uJJ7xM0y UNZzYIbuj5V7uYN4P1Acqt Jvkt4jz7jy LOVwRKuzA20hqRVdk1N2GU NbrIF4JZNgkPgdNvUudO58 Oyc+ULVgbCjki0PoIkqwp3 dmc5nwwPl3 CvEoIESumwXqwVjyPDF5h9 UcEd31N58oSQkvPUEqBDGe BOFuBZYfaXtlrz0xtF6cMi 8+PGNvbCB3 aVW2zG8yGNHuYqT7QMpjS8 37UyIqdFDkJjjon1wzr7jm pHb4LwHsJKPcitKxcNzmRH S9y2ZhOw46 T46jZShcOPYpNOZzWHQhAE FhpBbffj5oeW5gVv8+PC9j v0jdav59bR39aWA+PHRkIH X3uPdwGGjc YVIwoK7tVNncRgD3CEAhTl YigD80bXMaHTcfVz5eeMwz iXkoNJ9pVRQpgllrl630Ua Nkf3jxKVEc lALmLZdcWIJ5O25ri8I6OX QwQGRdKCF7oDT0oL7heRvm bjogbGVmdDsgdmVydGljYW paIKmuH778 IHRvcDsnPlBhdGllbnQgTm WmHFz8F5WnNcb1AZThlVzd GL4hgHFbYTakVc1lqVmywL dwIY4nABNu dhkdo624XpFxc6gzZOIckS PpBOmuQOY0R68dn5I2ZDSx MOHpJIU5sGQ5lY1kzUacna ogbGVmdDsg ziGqvAdeLDieFIvfZ214XW RvcDsnPkJpcnRoIERhdGU6 BX78YC59qUUkq6S4nGZ5N3 BhZGRpbmct yiirkYA9SNJuYBBbgH62Pr 2wtTcqId7mVUIpQCS5BSIh mPUqJ4WlpV3pSbFwIASfGD UzQ6BxsLOe JCqaY337MRroKtQ0ZNJouy KxB9CaPFFafUahQyE2e5D4 Tg9KK7L6GL69LB74bNIel9 S0ePH6G6Hy ZMCxqlazntfqkQQ1BKSjGC ThbL62Wh0erAmyUp2kURGc PSA7SEYpnPQzG4ZseT1lTr AjMDAwMDAw B2QycQXlRMapR247XMfaCw V9BIOpuiRgK4KfVBZllKhg LsQ9q7D2De7ABHo2LE83UX 24eOXsv6I9 gEF1T2NzICSemchnxfzdgJ P1HSDsLCHtmK74Jv8utEll Oc6bAQKpTQK4NTUdxQBuX5 CpeC9pZkFu DIQiGCKcT9SbhMIlOBnwP6 40XTqlOrR8SFHideIeQ1Wh XODojRnvXcL0o1N7Wt9MGP WjXX54MRN5 wLC6QC81FC88L4EvKwvdaD FibGU+PHRhYmxlIHdpZHRo KGbfWOTmMzZxrJoxBP4qDw 9yZGVyLWNv mRnvyFCpKlEku7nmDMVtQE obPP5viGcpN0TwxLA6MGCa j3s2Dg41O01fC7MbuIK+PG HcxNW3xVU8 dY9cXgTzSyG0HVtlD767Hg LumKEfZeppe4sxz0yuwXd3 KlQ9YXBklxArgLitHIJ8y6 IpDn03J25q IHdpZHRoPSIxNSUiIHZhbG pfof5haI8hEz7+PGNvbCB3 pWX1kH7tBxOtKoQ7ZLgoJ7 49InRvcCIv Rheaz1uda2asjVu5RmFwMB EoyrDxhHnlFHJ8j4MnTa64 P6AzrPxky5GdTin1zr53tI Plo5K1cXE2 F4KxOXOywdyxaOGooNjpXE 9sJHUjuffjPTFmrL4qBGGw J2w7NgSiYvV1KGkbQ2Qheu D0KCGqpFXy IXwbOOP8V89gn4O3GHTaEZ MlENJ8eIW2vY3jxBpdtymp bGVmdDsgdmVydGljYWwtYW quV446DWAw aBirOMXxvI5dVCPraHNrfT oqYQ9rDPGvxpxuCuMEQ6ps ZG3UWlWXBW06LM82jENoq4 B2fZP2M8Ga MPSznqzpgyxydYD7HBIbRW EqwY57mPUnTWkoZk5ij1S0 g723IVNtZNRsuY96Gj7aaM ogMTBwdCBU cT7hfyskw9unevwxSvQqHP OfGXs2AFa2YLQvoVimTtQg FOJ2ItK1DCY8oIOrhI9qtE hqqvdotU9c Oyc+ZQYvNYIkHJe1CKaikP Q+CDZuVAZ8rHonFQteRSZq zV8uUWUxD3k5BiUhVtP4UL yzA2VoFDDy npcbLc13gN7cEzCaTbA6ED kiD3ApvsU5JYTqfJGnBHcw RJK9K68fa1E7QUPwJFAeCK J8pDU7aY4l bGlnbjogbGVmdDsgdmVydG xyXPbtKOjiC835TIYndPbu TiEhNTfxRTWzJN24WR94wA Eta0S2hTB7 H1YoUPOzteutxtqymUW1EP WrWCFapL44tMAwBIrrWl9p d3P4s488YJSiWOYlpI94Fd 9udDogMTBw jDTPuX3pdachh2phraldXc IiHWGlZPw5AIz6JTEtjHec KrKgCYH1OsQ9CVI0jASuxW 1hbGlnbjog yW5vCka+ZkMcUXoqZG77NV 65cJXbj0R4jRM6W9GgCDCe ebuytsnofKK2CIYaBXThzZ 47cGFkZGlu Ld3tr8Q5m065VVQxQGVheA 47Ah4yeDmbJPGxpIXItW1h lktyb3unyqsqGfBnRXKaAL q1PEv6QBAl zJxhUhLxUPC3FhW6QKI3yV IjpY1teKlebelrkR0mJze+ M7A0rTB4iQYzfBkwyWA+PC 32zu88B8Nv LamcPwj1JPJuBOU8rDI1xS 3rMBCpVVuum8G5eSH9Z6Cn xyXeoi2bo8zgLGFhVGaiC5 9qsOBxc4I0 WERbnYK6QJOdkAliYxIpuV 93Oyc+TPFncVhoz4CdLxdp t3sdc3rsxJf6AmDdAGCkxz FsaWduPSJ0 z7TmMl76Y85iZDntPKSzDJ DgFWEzVTMnxHoshk0lnZ0v Ii8+FFFnvDG5ePJ3yQ2aTj KnMtN2EYbu I470TjYvlFEnNggvy3elq1 lniKt5NqWiOCQdcfDbcJyx BRF4x2TdZn65G9JmiXonh9 NvXmy8vy75 nKWjm7I1qWY1F3NoXJGoje abjIVebQgpZK7kJULkwovy GPUbtH0hDNHvJ1r0LlCgCd V9DVgvO5Uh exA6AEWhcGIaQQBipZRXdC 7aiozdl0ddzgooTfZiTMIt EIi0KGm4DGBqfSkdYxJuAG O5JoA0QSX7 lZMdiL1kwVbuszezeY9mDz c+GIw0q8cqtXMhAJ8pfLA0 UI59KF31tFEjg5Z8gAW5C4 BhZGRpbmct dnvilCV6BYRzAHBvbP88Dv 4vqBsjUw8jGWWkWBH2YYYm eLZbB4ZypN1iDpNvAMCvLY JaP1QcpKIg KKrhT858UWzgIlN5RDOcyr VuG9McWUPhtMgeAeJ1u2X0 Gs0WAE65XN66BN25yOTep5 F9nQD3M4It WGDabxebvsdkxOZ9BKReMM TpyY83Bp0khMaoQn7bLGGv YYY1IAYqfJElO4YtoU8gYg AjMDAwMDAw P0NjfGDrXYdsV803OFsbGa G8WAYdveZbT7AfTXAgtThu OoD4x6A9Gq2SPw62JB88SE 37tFCmt5Y5 aZQ9P3HyBEBmeoyloiipsY J4MCRmFIVgnV37Qr9poBes Nd9yBPBmUKD2NNLmbNJyQ2 IszB7jZxUo XCYuDEXvH1ZkuPRbENrhU3 11KFtpGtS7QSMrsxCzQ8Ea WKHiaWodChS0t0B9Oy5YSX wqyyy5T2Wp PjwvdHI+QO25PDHaCA34nH ZhlKZtn3assJc8XgDuKWFu XEJ1cGjeEVebf7PbOHFtX6 5unNDzb0S2 IGNv (more content not included)... Normal [facility] Main OR Intraoperative Recor don 06-17-2021 Main OR Intraoperative Record IntraOp Document Type FT Summary Primary Physician: Raman HENRY MD Finalized Date/Time: 06/17/21 09:30:46 Pt. Name: CATHERINE SHEIKHO.B./Sex: 1960 Female Med Rec #: [id number] Physician: Raman HENRY MD Financial #: [id number] Pt. Type: O Room/Bed: / Admit/Disch: 06/12/21 [...] Childress RN, Mikayla Toth Role Performed Anesthesiologist Wound Nurse - Primary Scrub - Primary Sewing Machine Operator Time In 06/12/21 12:49:00 06/12/21 12:49:00 06/12/21 [...] and tissue Entry 1 Skin Integrity Intact, [place], Warm, and Skin Abnormality No Dry Outcomes [...] of positioning (more content not included)... Normal [facility] [place] 06-13-2021 Consent [id number]#1.0 0CD:127 Normal [facility] Discharge Instructionson Discharge Instructions [id number]#1.0 0CD:127 Normal [facility] IntraOperative Documentson 0 06-13-2021 IntraOperative Documents [id number]#1.0 0CD:127 Normal [facility] IntraOperative Documents [id number]#1.0 0CD:127 Normal [facility] CBC w/Indiceson 06-12-2021 Erythrocyte distribution width (RBC) [Ratio] 15.6 % High 10.9-14.2 [facility] Comment on above: Performed By: #### 2 [id number] ####[facility] [address] [place] [address] Hematocrit (Bld) [Volume fraction] 36.8 % Normal 34.0-46.0 [facility] Comment on above: Performed By: #### 2 [id number] ####[facility] [address] [place] [address] Hemoglobin (Bld) [Mass/Vol] 12.5 g/dL Normal 12.0-16.0 [facility] Comment on above: Performed By: #### 2 [id number], [id number], [id number], [id number] ####[place] [id number] MCH (RBC) [Entitic mass] 28.6 pg Normal 27.0-34.0 [facility] Comment on above: Performed By: #### 2 514369, [id number], 3522448, 1207305 ####[place] [id number] MCHC (RBC) [Mass/Vol] 33.8 g/dL Normal 31.4-36.0 [facility] Comment on above: Performed By: #### 2 953614, 24844258, 8688041, 5276901 ####[place] [address]857 MCV (RBC) [Entitic vol] 84.5 fL Normal 80.0-100.0 [facility] Comment on above: Performed By: #### 2 713973, 62867529, 6949393, 0792181 ####[address] [address] Platelet mean volume (Bld) [Entitic vol] 8.0 fL Normal 6.4-10.8 [facility] Comment on above: Performed By: #### 2 377557, 78958381, 2439059, 8735040 ####[place] [address] Platelets (Bld) [#/Vol] 186.0 E9/L Normal 150.0-500.0 [facility] Comment on above: Performed By: #### 2 954598, 79459608, 0267353, 8698140 ####[address] [address] RBC (Bld) [#/Vol] 4.4 E12/L Normal 4.3-5.9 [facility] Comment on above: Performed By: #### 2 217624, 42865241, 7488265, 9573148 ####[place] [address] [place] [address] WBC corrected for nucl RBC Auto (Bld) [#/Vol] 5.7 E9/L Normal 4.0-11.0 [facility] Comment on above: Performed By: #### 2 499010, 38007792, 4528446, 9839982 ####[place] [address] [place] [address] CMPon 06-12-2021 Albumin [Mass/Vol] 3.9 g/dL Normal 3.3-5.0 [facility] Comment on above: Performed By: #### 2 344856, 67113685, 0973632, 9339808 ####[address] [address] Albumin/Globulin (S) [Mass conc ratio] 1.2 Normal 1.1-2.2 [facility] Comment on above: Performed By: #### 2 628632, 30463787, 6553651, 0089561 ####[address] [address] ALP [Catalytic activity/Vol] 56 Int._Unit/L Normal 21-98 [facility] Comment on above: Performed By: #### 2 372996, 91740169, 5720882, 9042243 ####[address] [address] ALT No additional P-5'-P [Catalytic activity/Vol] 23 Int._Unit/L Normal 6-46 [facility] Comment on above: Performed By: #### 2 431706, 00971382, 1012120, 3753702 ####[facility] [address] [place] [address] Anion gap [Moles/Vol] 13 mmol/L Normal 6-16 [facility] Comment on above: Performed By: #### 2 933532, 42159030, 9910326, 6842275 ####[address] [address] AST [Catalytic activity/Vol] 18 Int._Unit/L Normal 5-43 [facility] Comment on above: Performed By: #### 2 555391, 23454332, 4370954, 6258695 ####[facility] [address] [place] [address] Bilirubin [Mass/Vol] 0.6 mg/dL Normal 0.0-1.1 [facility] Comment on above: Performed By: #### 2 664037, 49958709, 3570388, 4783353 ####[facility] [address] [place] [address] Calcium [Mass/Vol] 9.0 mg/dL Normal 8.9-11.1 [facility] Comment on above: Performed By: #### 2 284204, 58568518, 0400937, 1807643 ####[place] [address] [place] [address] Chloride [Moles/Vol] 111 mmol/L Normal 101-111 [facility] Comment on above: Performed By: #### 2 946158, 59792049, 2867342, 9933573 ####[facility] [address] [place] [address] CO2 [Moles/Vol] 25 mmol/L Normal 21-31 [facility] Comment on above: Performed By: #### 2 854461, 77843734, 4916231, 5033748 ####[facility] [address] [place] [address] Creatinine [Mass/Vol] 0.7 mg/dL Normal 0.5-1.3 [facility] Comment on above: Performed By: #### 2 581554, 31538339, 3387269, 7042084 ####[facility] [address] [place] [address] Globulin (S) [Mass/Vol] 3.4 g/dL Normal 1.4-4.0 [facility] Comment on above: Performed By: #### 2 744649, 50542124, 4972102, 7233843 ####[facility] [address] [place] [address] Glucose [Mass/Vol] 99 mg/dL Normal 55-199 [facility] Comment on above: Result Comment: If t his glucose result represents a fasting glucose, interpretation should refer to the following reference range: 55-99 mg/dL Performed By: #### 2 644361, 75896222, 1311016, 5503570 ####[facility] [address] [place] [address] Potassium [Moles/Vol] 3.6 mmol/L Normal 3.5-5.3 [facility] Comment on above: Performed By: #### 2 727741, 93954708, 8525087, 8136168 ####[facility] [address] [place] [address] Protein [Mass/Vol] 7.3 g/dL Normal 6.0-7.8 [facility] Comment on above: Performed By: #### 2 133140, 14379397, 9425412, 8479240 ####[facility] [address] [place] [address] Sodium [Moles/Vol] 145 mmol/L Normal 135-145 [facility] Comment on above: Performed By: #### 2 713962, 99751250, 5336449, 3722017 ####[facility] [address] [place] [address] Urea nitrogen [Mass/Vol] 10 mg/dL Normal 5-21 [facility] Comment on above: Performed By: #### 2 827928, 55291800, 7608648, 5611554 ####[facility] [address] [place] [address] Urea nitrogen/Creatinine [Mass ratio] 14 No Units Normal 10-20 [facility] Comment on above: Performed By: #### 2 513422, 43098325, 5188369, 3729545 ####[facility] [address] [place] [address] Consent for Treatmenton 06-02 Consent for Treatment [id number] 0CD:127 Normal [facility] Endoscopic Procedure Report - Otheron 06-12-2021 Endoscopic [...] Return to activities:: After 24 hours. Normal [facility] Comment on above: Result Comment: Elec tronically Signed By: Raman HENRY MD\.br\Date and Time Signed: 06/12/21 13:09 EDT Other Comment: Darlin diaz Attachment - attachment storage system not supported [id number] Can be viewed in source systemMissing Attachment - attachment storage system not supported [id number] Can be viewed in source system Endoscopic [...] Gallbladder ultrasound, CBC, CMP and lipase Normal [facility] Comment on above: Result Comment: Elec tronically Signed By: Raman HENRY MD\.br\Date and Time Signed: 06/12/21 13:08 EDT Other Comment: Darlin diaz Attachment - attachment storage system not supported [id number] Can be viewed in source systemMissing Attachment - attachment storage system not supported [id number] Can be viewed in source systemMissing Attachment - attachment storage system not supported [id number] Can be viewed in source systemMissing Attachment - attachment storage system not supported [id number] Can be viewed in source system Inpatient Patient Summaryon 06-12-2021 Inpatient Patient Summary [place] [address] [facility] Clinical Discharge Instructions PERSON INFORMATION Name: [...] Capsules By Mouth every day. Comment: Normal [facility] Lipase Levelon 06-12-2021 Lipase [Catalytic activity/Vol] 23 U/L Normal 13-58 [facility] Comment on above: Performed By: #### 2 953254, 54546991, 2123308, 7539866 ####[facility] [address] [place] [address] Main OR PACU I Recordon 06-02 Main OR PACU I Record PACU Phase I Docum ent Type FT Summary Primary Physician: Raman HENRY MD Finalized Date/Time: 06/12/21 14:39:20 Pt. Name: TRACIE CATHERINE Willi/Sex: 1960 Female Med Rec #: [id number] Physician: Raman HENRY MD Financial #: [id number] Pt. Type: O Room/Bed: / Admit/Disch: 06/12/21 [...] Dolores De Leon RN 06/12/21 14:39 Normal [facility] Main OR Preoperative Recordo n 06-12-2021 Main OR Preoperative Record Holding Area Document Type FT Summary Primary Physician: Raman HENRY MD Finalized Date/Time: 06/12/21 11:42:13 Pt. Name: CATHERINE SHEIKH Willi/Sex: 1960 Female Med Rec #: [id number] Physician: Raman HENRY MD Financial #: [id number] Pt. Type: O Room/Bed: / Admit/Disch: 06/12/21 [...] By: Rosie Bravo RN 06/12/21 11:42 Normal [facility] Monitor Recordon 06-12-2021 Monitor Record [id number]:127 Normal [facility] Outpatient Surgery Discharge Instructionon 06-12-2021 Outpatient Surgery Discharge Instruction [place] [id number] Patient Discharge Instructions PERSON INFORMATION Name: TRACIE [...] Haddad- You may receive a survey from [employer] asking you to rate your care experience. Your feedback is important and will help us understand what we do well and how we can improve the quality of care we provide to you, your loved ones and our community. It?s an honor to serve you. Thank you for choosing [facility] HERE ARE THE MEDICATION CHANGES THAT [...] every day. PATIENT EDUCATION INFORMATION Instructions: Normal [facility] Patient Education - Texton 0 06-12-2021 Patient Education - Text Normal [facility] Progress Note-Physicianon Progress Note-Physician Patient: CATHERINE [...] Last Charted Resp Rate 19 br/min (JUN 12) SBP 120 mmHg (JUN 12) DBP 62 mmHg (JUN 12) SpO2 96 % (JUN 12) Weight 101.2 kg (JUN 12 06:) Height 166 cm (JUN 12 06:) BMI 36.73 (JUN 12:) Pain assessment: Pain Assessment 06/12/2021 13:11 EDT Pain Symptoms Self Report No, able to self report . Respiratory: Adequate air exchange with mormonism of preoperative function.. Cardiovascular: Cardiovascular function is stable and has returned to preoperative levels.. Neurologic: Pt has returned to preoperative baseline.. Review / Management Condition: Stable. Assessment Anesthetic outcome No anesthetic complications noted. Plan Transfer/ Discharge: Patient can be discharged from PACU when criteria met. Condition good. Normal [facility] Comment on above: Result Comment: Elec [...] 1 EA, Refill(s) 0, PER PHYSICIAN INSTRUCTIONS, [facility], 166, cm, 04/23/21 9:16:00 [...] data available Respiratory: Adequate air exchange with mormonism of preoperative function.. Cardiovascular: Cardiovascular function is stable and has returned to preoperative levels.. Neurologic: Pt has returned to preoperative baseline.. Review / Management Condition: Stable. Assessment Anesthetic outcome No anesthetic complications noted. Plan Transfer/ Discharge: Patient can be discharged from PACU when criteria met. Condition good. Normal [facility] Comment on above: Result Comment: Elec tronically Signed By: Albert Dunbar JR, DO eGFRon 06-12-2021 GFR/1.73 sq M.predicted among blacks MDRD (S/P/Bld) [Vol rate/Area] mL/min/{1.73_m2} Normal >=59 [facility] Comment on above: Order Comment: Order added by Discern Expert. Result Comment: eGFR is race adjusted. AA=. Performed By: #### 2 606529, 42779520, 7882202, 2297491 ####[facility] [address] [place] [address] GFR/1.73 sq M.predicted among non-blacks MDRD (S/P/Bld) [Vol rate/Area] mL/min/{1.73_m2} Normal >=59 [facility] Comment on above: Order Comment: Order added by Discern Expert. Result Comment: Business Rules Analyst precious kidney disease could be indicated at eGFR's of less than 60 mL/min/1.73m2. Kidney failure is indicated at less than 15 mL/min/1.73m2. Performed By: #### 2 882003, 53667419, 0233251, 2570772 ####[facility] [address] [place] [address] Progress Note-Physicianon Progress Note-Physician Patient: CATHERINE SHEIKH [...] 1 EA, Refill(s) 0, PER PHYSICIAN INSTRUCTIONS, [facility], 166, cm, 04/23/21 9:16:00 EDT, [...] review: No qualifying data available . Plan [place] [employer]esthesiologists (ASA) physical status classification: Class II. Anesthetic Preoperative Plan Anesthesia: Monitored anesthesia care and general anesthesia if required.. Anesthetic plan, risks, benefits, and alternatives discussed with the patient and/or family. Pt. and/or family present and agree to proceed as planned.. Discussed the importance of abstaining from tobacco products, and offered counseling if desired.. Normal [facility] Comment on above: Result Comment: Elec tronically Signed By: Albert Dunbar JR, DO.wes\Date and Time Signed: 06/11/21 14:42 EDT Vital Signs Date Time Vital Sign Value Performing Clinician Temitope tamez 12-27-2023 12:30-0500 Body height 165.1 cm [facility] 12-27-2023 12:30-0500 Body mass index (BMI) [Ratio] 36.3 kg/m2 [facility] 12-27-2023 12:30-0500 Body temperature 98.2 [degF] [facility] 12-27-2023 12:30-0500 Body weight 99.1 kg [facility] 12-27-2023 12:30-0500 Heart rate 74 /min [facility] 12-27-2023 12:30-0500 Respiratory rate 18 /min [facility] 12-27-2023 12:30-0500 SaO2% (BldA) [Mass fraction] 97 % [facility] Encounters Encounter Date Encounter Type Care Provider Facility Start: 05-17-2024 End: 05-17-2024 ambulatory VAIL FAWWAD Not Available Start: 02-15-2024 End: 02-15-2024 ambulatory VAIL FAWWAD Not Available Start: 02-02-2024 End: 02-02-2024 ambulatory VAIL FAWWAD Not Available Start: 01-26-2024 End: 01-26-2024 ambulatory DEBORAH GIPSON Not Available Start: 01-04-2024 End: 01-04-2024 ambulatory VAIL FAWWAD Not Available Start: 01-01-2024 End: 01-01-2024 ambulatory CARLA BLAND Not Available Start: 12-27-2023 End: 12-27-2023 ambulatory [facility] Work Phone: Start: 12-27-2023 End: 12-27-2023 Patient encounter procedure [facility] Work Phone: Start: 12-16-2022 End: 12-17-2022 ambulatory VAIL H FAWWAD Facility:[facility] Start: 09-24-2022 End: 09-25-2022 ambulatory VAIL H FAWWAD Facility:[facility] Start: 05-13-2022 End: 07-09-2022 ambulatory FRANCIA DINH Facility:[facility] Start: 04-08-2022 End: 04-09-2022 ambulatory VAIL H FAWWAD Facility:[facility] Start: 03-25-2022 End: 03-26-2022 ambulatory VAIL H FAWWAD Facility:[facility] Payers Date Payer Category Payer Unknown [id number] 1960 Self-pay [id number] 1960 Unknown [id number] 2.16.84 0.1.822420.3.579.2.593 1960 Unknown [id number] 2.16.84 0.1.398160.3.579.2.593 1960 Unknown [id number] 2.16.84 0.1.693984.3.579.2.593 1960 Unknown [id number] 2.16.84 0.1.117003.3.579.2.593 1960 Unknown [id number] 2.16.84 0.1.806310.3.579.2.593 1960 Unknown [id number] 2.16.84 0.1.530258.3.579.2.1259 1960 Unknown [id number] 2.16.84 0.1.597401.3.579.2.1259 1960 Unknown [id number] 2.16.84 0.1.664602.3.579.2.1259 1960 Unknown [id number] 2.16.84 0.1.636152.3.579.2.1259 1960 Unknown [id number] 2.16.84 0.1.513493.3.579.2.1259 1960 Unknown [id number] 2.16.84 0.1.243556.3.579.2.1259 1960 Unknown [id number] 2.16.84 0.1.649839.3.579.2.1259 Self-pay Self Pay [id number] Unknown [id number] 2.16.84 0.1.983141.3.579.2.593 Unknown [place] BC/BS [id number] Unknown Renita VALENTIN [id number] Unknown Melvina Barrientos VALENTIN [id number] Social History Date Type Detail Facility Tobacco smoking stat NHIS Unknown if ever smoked [facility] Work Phone: Start: 1960 Sex Assigned At Female F [facility] Clinical Note 04-08-2022 Note Date & [...] authenticated by: MAKENZIE GOLDMAN Date: 2022-04-08 17:50 [facility] Clinical Note 10-09-2021 Note Date & [...] Sister and Brother. Hypertension: Sister. Hypothyroidism: Sister. [facility] Comment on above: Result Comment: Elec [...] lesion(s) present No Hyperplastic polyp(s) present No [facility] History and physical note 06-13-2021 Note Date & Type Note Facility 06-13-2021 Note [id number]:127 [facility] Evaluation note Note Date & Type Note Facility Evaluation note No assessment information availa [facility] Work Phone: Summary Purpose Family History No [...] section and content) DATE CREATED AUTHOR 05/24/2022 [facility] DATE CREATED AUTHOR AUTHOR'S ORGANIZ ATION 12/20/2022 [facility] DATE CREATED AUTHOR AUTHOR'S ORGANIZ ATION 05/21/2024 [facility] EP[employer] Care Teams (unrecognized sec [...] BE BASED ON THE PRIMARY CLINICAL RECORDS. [employer] [facility]. provides no warranty or guarantee of the accuracy or completeness of information in this document.
[2024-05-24 10:09] LABS: Alanine Aminotransferase 26 U/L (14-59); Albumin Globulin Ratio 0.9; Albumin Level 3.6 g/dL (3.4-5.0); Alkaline Phosphatase 60 U/L (46-116); Anion Gap 10.8; Aspartate Amino Transferase 13 U/L (15-37); BUN Creatinine Ratio 15.3; Bilirubin Total 0.4 mg/dL (0.2-1.0); Calcium 9.1 mg/dL (8.5-10.1); Carbon Dioxide 31.8 mmol/L (21.0-32.0); Chloride 105 mmol/L (98-107); Chol HDL Ratio 3.4; Cholesterol 168 mg/dL (<=200); Estimated GFR (African America >60 (>=60); Estimated GFR (Non-African Ame >60 (>=60); Globulin 4.2 g/dL; Glucose 86 mg/dL (74-106); HDL Cholesterol 49 mg/dL (40-60); LDL Cholesterol Calculated 99.6 mg/dL; Potassium 3.6 mmol/L (3.5-5.1); Sodium 144 mmol/L (136-145); Total Protein 7.8 g/dL (6.4-8.2); Triglycerides 97 mg/dL (<=150); VLDL CHOLESTEROL 19.4 mg/dL
== END 2024-05-24 08:47 | disposition home or self-care (01) ==
LOC: CT 08:46
PROVIDERS: PCP Internal Medicine; Visit Provider Internal Medicine
DX: R91.8 Other nonspecific abnormal finding of lung field (principal); E03.8 Other specified hypothyroidism
CPT/HCPCS: 36415; 71250; 77080; 80053; 80061

== ENCOUNTER 2024-10-21 01:24 | Emergency (ER) | payer MEDICARE, OTHER, SELFPAY ==
[2024-10-21 01:28] VITALS: BP 173/78; PULSE 87; TEMP 36.4; O2SAT 95; BMI 36.0
--- OUTSIDE RECORDS SUMMARY | 2024-10-21 01:34 | XMS_ITS | CCD ---
Author Organization [facility] Care Team Providers Care Timber Hand Name Role Phone FAWWAD, VAIL H Attending [...] Attending Unavailable DEBORAH GIPSON Referring Unavailable FAWWAD, VAIL Attending Unavailable FAWWAD, [...] SHAHID MOLINA Date: 2022-12-16 14:13 Normal [facility] VICKEY - VITAMIN Don 12-16-2022 VIT D 25-OH 28.8 ng/mL Normal [facility] Comment on above: Performed By: #### D ATVITD #### [facility] [address] [place] [address] Dr. Emmanuel Hillman VIT D RANGES SEE BELOW Normal [facility] Comment on above: Result Comment: <20 ng/mL Vit D deficient 20 - <30 ng/mL Vit D insufficient 30 - 100 ng/mL Vit D sufficient >100 ng/mL Potential Toxicity Performed By: #### D ATVITD #### [facility] [address] [place] [address] Dr. Emmanuel Hillman GLYCOHEMOGLOBIN A1Con 2022 ADA RECOMMENDATION SEE BELOW Normal [facility] Comment on above: Result Comment: ADA RECOMMENDED LIMIT 4.0 - 6.0 ADA THERAPEUTIC TARGET < 7.0 ACTION SUGGESTED > 7.0 Performed By: #### D ATA1C #### [facility] [address] [place] [address] Dr. Emmanuel Hillman Glucose [Mass/Vol] 108 mg/dL Normal [facility] Comment on above: Performed By: #### D ATA1C #### [facility] [address] [place] [address] Dr. Emmanuel Hillman HbA1c (Bld) [Mass fraction] 5.4 % Normal 4.5-6.2 [facility] Comment on above: Performed By: #### D ATA1C #### [facility] [address] [place] [address] Dr. Emmanuel Hillman LIPID PROFILEon 12-16-2022 CHOL-HDL RATIO NORM SEE BELOW Normal [facility] Comment on above: Result Comment: 3.3 - 4.4 LOW RISK 4.4 - 7.1 AVERAGE RISK 7.1 - 11.0 MODERATE RISK >11.0 HIGH RISK Performed By: #### L IPID, TSH, LIVER #### [facility] [address] [place] [address] Dr. Emmanuel Hillman Cholesterol [Mass/Vol] 148 mg/dL Normal <=200 [facility] Comment on above: Performed By: #### L IPID, TSH, LIVER #### [facility] [address] [place] [address] Dr. Emmanuel Hillman Cholesterol in HDL [Mass/Vol] 44 mg/dL Normal 40-60 [facility] Comment on above: Performed By: #### L IPID, TSH, LIVER #### [facility] [address] [address] [address] Emmanuel Hillman Cholesterol in LDL [Mass/Vol] 79.0 mg/dL Normal [facility] Comment on above: Performed By: #### L IPID, TSH, LIVER #### [facility] [address] [address] [address] Emmanuel Hillman Cholesterol.total/Cho lesterol in HDL [Mass ratio] 3.4 {ratio} Normal [facility] Comment on above: Performed By: #### L IPID, TSH, LIVER #### [facility] [address] [address] [address] Emmanuel Hillman HDL NORMAL > or = 60 mg/dl - LO W CARDIOVASCULAR RISK <40 mg/dl - HIGH CARDIOVASCULAR RISK Normal [facility] Comment on above: Performed By: #### L IPID, TSH, LIVER #### [facility] [address] [place] [address] Dr. Emmanuel Hillman LDL CALC NORMAL SEE BELOW Normal [facility] Comment on above: Result Comment: <100 mg/dl OPTIMAL 100 - 129 mg/dl NEAR OR ABOVE OPTIMAL 130 - 159 mg/dl BORDERLINE HIGH 160 - 189 mg/dl HIGH >190 mg/dl VERY HIGH Performed By: #### L IPID, TSH, LIVER #### [facility] [address] [address] [address] Emmanuel Hillman Triglyceride [Mass/Vol] 125 mg/dL Normal <=[address] [facility] Comment on above: Performed By: #### L IPID, TSH, LIVER #### [facility] [address] [address] [address] Emmanuel Hillman VLDL CALC 25.0 mg/dL Normal [facility] Comment on above: Performed By: #### L IPID, TSH, LIVER #### [facility] [address] [address] [address] Emmanuel Hillman LIVER PROFILEon 12-16-2022 Albumin [Mass/Vol] 3.7 g/dL Normal 3.4-5.0 [facility] Comment on above: Performed By: #### L IPID, TSH, LIVER #### [facility] [address] [place] [address] Dr. Emmanuel Hillman Albumin/Globulin [Mass ratio] 0.9 {ratio} Normal [facility] Comment on above: Performed By: #### L IPID, TSH, LIVER #### [facility] [address] [place] [address] Dr. Emmanuel Hillman ALP [Catalytic activity/Vol] 69 U/L Normal 46-116 [facility] Comment on above: Performed By: #### L IPID, TSH, LIVER #### [facility] [address] [place] [address] Dr. Emmanuel Hillman ALT [Catalytic activity/Vol] 34 U/L Normal 14-59 [facility] Comment on above: Performed By: #### L IPID, TSH, LIVER #### [facility] [address] [place] [address] Dr. Emmanuel Hillman AST [Catalytic activity/Vol] 17 U/L Normal 15-37 [facility] Comment on above: Performed By: #### L IPID, TSH, LIVER #### [facility] [address] [place] [address] Dr. Emmanuel Hillman BILI, CONJUGATED 0.1 mg/dL Normal 0.0-0.2 [facility] Comment on above: Performed By: #### L IPID, TSH, LIVER #### [facility] [address] [place] [address] Dr. Emmanuel Hillman Bilirubin [Mass/Vol] 0.4 mg/dL Normal 0.2-1.0 [facility] Comment on above: Performed By: #### L IPID, TSH, LIVER #### [facility] [address] [place] [address] Dr. Emmanuel Hillman Globulin (S) [Mass/Vol] 4.3 g/dL Normal [facility] Comment on above: Performed By: #### L IPID, TSH, LIVER #### [facility] [address] [place] [address] Dr. Emmanuel Hillman Protein [Mass/Vol] 8.0 g/dL Normal 6.4-8.2 [facility] Comment on above: Performed By: #### L IPID, TSH, LIVER #### [facility] [address] [address] [address] Emmanuel Hillman TSHon 12-16-2022 TSH 5.447 uIU/mL Critically high 0.358-3.740 [facility] Comment on above: Performed By: #### L IPID, TSH, LIVER #### [facility] [address] [address] [address] Emmanuel Hillman MG MAMM SCREEN 3D MEKA CADon 09-24-2022 MG MAMM SCREEN 3D MEKA CAD Patient: CATHERINE SHEIKH Exam Date: 09/24/2022 : 1960 Gender:F Ordering : SHAIKH Quintin CHAPIN . Admission #: [id number] Family : Order #: [id number] CLICK HERE TO VIEW EXAM RADIOLOGY REPORT [...] breast cancer at age 69. LOCATION: [facility] BREAST COMPOSITION: Scattered areas fibroglandular density. [...] Molina M.D. on 09/24/2022 at 13:35 Normal [facility] LIPID PROFILEon 03-25-2022 CHOL-HDL RATIO NORM SEE BELOW Normal [facility] Comment on above: Result Comment: 3.3 - 4.4 LOW RISK 4.4 - 7.1 AVERAGE RISK 7.1 - 11.0 MODERATE RISK >11.0 HIGH RISK Performed By: #### L IPID, TSH #### [facility] [address] [address] [address] Emmanuel Hillman Cholesterol [Mass/Vol] 149 mg/dL Normal <=200 [facility] Comment on above: Performed By: #### L IPID, TSH #### [facility] [address] [address] [address] Emmanuel Hillman Cholesterol in HDL [Mass/Vol] 44 mg/dL Normal 40-60 [facility] Comment on above: Performed By: #### L IPID, TSH #### [facility] [address] [address] [address] Emmanuel Hillman Cholesterol in LDL [Mass/Vol] 87.6 mg/dL Normal [facility] Comment on above: Performed By: #### L IPID, TSH #### [facility] [address] [address] [address] Emmanuel Hlilman Cholesterol.total/Cho lesterol in HDL [Mass ratio] 3.4 {ratio} Normal [facility] Comment on above: Performed By: #### L IPID, TSH #### [facility] [address] [address] [address] Emmanuel Hillman HDL NORMAL > or = 60 mg/dl - LO W CARDIOVASCULAR RISK <40 mg/dl - HIGH CARDIOVASCULAR RISK Normal [facility] Comment on above: Performed By: #### L IPID, TSH #### [facility] [address] [address] [address] Emmanuel Hillman LDL CALC NORMAL SEE BELOW Normal [facility] Comment on above: Result Comment: <100 mg/dl OPTIMAL 100 - 129 mg/dl NEAR OR ABOVE OPTIMAL 130 - 159 mg/dl BORDERLINE HIGH 160 - 189 mg/dl HIGH >190 mg/dl VERY HIGH Performed By: #### L IPID, TSH #### [facility] [address] [address] [address] Emmanuel Hillman Triglyceride [Mass/Vol] 87 mg/dL Normal <=[address] [facility] Comment on above: Performed By: #### L IPID, TSH #### [facility] [address] [address] [address] Emmanuel Hillman VLDL CALC 17.4 mg/dL Normal [facility] Comment on above: Performed By: #### L IPID, TSH #### [facility] [address] [address] [address] Emmanuel Hillman TSHon 03-25-2022 TSH 3.614 uIU/mL Normal 0.358-3.740 [facility] Comment on above: Performed By: #### L IPID, TSH #### [facility] [address] [address] [address] Emmanuel Hillman TSH RANGE SEE BELOW Normal [facility] Comment on above: Result Comment: <0.3 4 UIU/ml HYPERTHYROID 0.34-5.60 UIU/ml EUTHYROID >5.60 UIU/ml HYPOTHYROID Performed By: #### L IPID, TSH #### [facility] [address] [place] [address] Dr. Emmanuel Hillman [facility] [place] October 11, 2021 SHAIKH VALENTE, [address] [place] [address] Re: CATHERINE SHEIKH Date of : 1960 Thank you for your referral of Catherine Sheikh who was seen on consultation for abdominal pain, Right upper quadrant pain and nausea with vomiting. I have enclosed my consultation note for your review. I will be happy to follow Catherine. Sincerely, Raymond Davalos MD General Surgery Normal [facility] Ambulatory Clinical Summaryo n 10-09-2021 Ambulatory Clinical Summary {[id number]}CD:[id number] Normal [facility] Gastroenterology Office/Clin ic Noteon 08-19-2021 Gastroenterology [...] after patient consented to recording for virtual category specialist and provider reviewed before signing. ORALIA: Dona Ramires. Follow-up With When Contact (more content not included)... Normal [facility] Comment on above: Result Comment: Elec tronically Signed By: Dona Ramires R\.br\Date and Time Signed: 08/15/21 14:52 EDT\.br\Electronically Co-Signed By: Raman HENRY MD\.br\Date and Time Co-Signed: 08/19/21 09:50 EDT Reminderson 08-19-2021 Reminders - From: Raman HENRY MD To: [facility] - Clinical; Sent: 08/15/2021 13:23:07 EDT Show up: 08/15/2021 13:23:00 EDT Subject: Ambulatory Reminder repeat colonoscopy in 5 years Reminder/Recall Normal [facility] Coding Summary.on 07-12-2021 Coding Summary. CD:[id number] Gh 0bWw+PGhlYWQ+OX4YSWFjH 82omSNjyT0KQ9gKEK2SQBC OYDKTMS2QME7fzQH0VAssB 2VybiAv OxjjoTSbNO01NLr8BQH1fU fwXJhblW0roFDiX5d2ZaLt HQ35dI09QMdpARLmZjI3Kf ZpbjsgbWFy W5ksOwWixIQfUxs+PHRhYm xlIHdpZHRoPScxMDAlJyBz sUxdES0cYb8hNUZqYMRuvI xhcHNlOiBj m8npTESuRAbgOP2smAkaT9 VvcDQ0LWGsu8d7It21lOS+ TSBvHMU5lVdqPCwws705Fa Fen4niIZC0 gKRjYOmvNBO2T56mj6T6PF KyLVKzGLH5dCJ8pW3owLwq dxszS2ZriYIvZhI1TSP3yF PjvU2rfEot hnayoF7eLru+X81QBD9XQY LTDG7OZqk2S1FkQszzcTS+ UT42THBcPZ27nTTycRYuk2 gamGb8VhVd GCJkLUN9lLjqPNtvt7LhZV GcB03wlQHnx7L2YEXxcSzw aZVmQdStzXU5tC6vEBudfd xnj3llqfmh Ayhuc0flnq91jE69N71mIR nhYMIjGHX2LQJzVJKjuQfv jl8fyK2jIy4+XGngd3xgo1 bmjSr8WsPi YKPunaMfoNhdGTR5f8ZuWb 31Q6IgyTzqm7KcNqx3ya27 fVLmk6O8bLA1QKnxCEJrzE 8cKYloIgM9 DBGvQdNqxQ58gJHrECykOb 3ehJvozGlcWA0rSZTtxdrf CLCriG2aTPEveROynJeaLF 4wNTBpbjtm t038FwQmVFE5JAHwiTWjN4 ComK8cBzZfDLTyNRNbN4Db gCFaSRxlC455LEiyUuT8YV ZthcGkG0Ok FWZuzZgjVbM8k4O3Nl6Os6 EdehcoTDS4AIitNLQ0NdC8 RzBmXfW7Y9XiXgt3XSAaxM njTO1cE7Xu FIUmwcragqwxiNC9BGFgFO EwgW04pCSgAPaiUw1vv1C4 u268RLYiHZSgkV88Dn2cmK ogMTBwdCBU gR1whhzwc8arunnoGyMpCW AgWTk4OWw2BFXkpDnhJrBu MGK2UtS7PWZ7yPWkuZ1arA oztkdmcZ7u Oyc+B98odC9bWYU0VOA6eh otCBOxefUeTC23FW81J2Wf PjwvdGFibGU+PGRpdiBzdH luFD0uLrIq m6nla1HqMKrtQ0ToVQTpJT jiAzz4ZDFhMZD7aMT4dQ2a RDBoGUkjf4O6bYE8U2Yvkd Zrpw6my2zk HLAlUWshB70asHKca5W7DV DuuLG1PIQwmSpfSxDopL41 Oyc+VNNlgMfwt0PeEjofz3 pca4qhrXr4 AsGmKCAqxzQxsVinDGO4b6 DiHn03U81pFRsjQFSqXHFn FATjEYJbqQjkjn5roZ7tEc 8+PGNvbCB3 pPF9eA9aXESlUyI9ETwaO1 24XeQrfENcUekii1sql8mg aRc7SuWyBJPdstOrnZsbRD R3w9KmCh20 Y24mVCctYZTuSKIkAJAzYG FogKpfjj2upX2zQw7+PC9j l5hqqm19nX92iZQ+PHRkIH H2dOgnPSkn DXXirX0eBDsnOzS2BMMcEa NzrO29sEXzNVzjJx1juHgh fSlbWW2mKYNgtpjar646Ni Viq4sxLBSd mKUcKTnyMEN2S06vi1Y3ST IpOIOhCDD1iTA4oP1pbLqk bjogbGVmdDsgdmVydGljYW wjLCuyL068 IHRvcDsnPlBhdGllbnQgTm HqGQm7P6KmVbi6YCCoaNce FA4fjTZwKFzfKe3yfLzwkV ftEG4sPOUb wwrmv956HiGfj9nvKQHruO JzGVepZGA5O12sg7Y8QPAk GBFlPLP0nVD8kM5vgAwbfz ogbGVmdDsg qiWahQtnKFjzNDorY337AU RvcDsnPkJpcnRoIERhdGU6 RN43AM27qVLki8Q4fXI1Y5 BhZGRpbmct tjbwjCS4SERnZBNybG74Kc 9ogNpuXq7zBHDeMCC5LFIm oQDwE9NhsH1zIzZyPZZxGE SmK2PrqKVy ADblC634WEjgFbX5JNMshk BlB5IsDHMsgOzoVwT3k4M1 So0IE4W2LE13KF83cYDxv6 D0wNL3H8Hj ENBmporkimbxfDC6VHOuGH LssN43Uf5ypEjxSo1iZKKs DWO4OWOjyCDbV4FqwG2fZh AjMDAwMDAw K4SaiUNuQPihY574GKetKu P1VAHayyInJ9CyLPTzfOas WvZ9y2W0Hr9ULYy0TZ81JH 80wGMip9P8 gPX3S8KtUCFzfhiqyrigjF E5SWRcQIQoxL86Pu0zoXec Rh5mCIYgMDT9YSGwtZMgA5 RxiY5gMeMk GZRxTRCzP9PtxPDrEOwkW9 01CMluQwG0CDCfucAuX3Nt RDLzhAoxTeQ4a7D2Yn0JZP DdTF28DQH8 iNO5ZG46WZ97K4ZqOshyfN FibGU+PHRhYmxlIHdpZHRo SGqzZWBtWkPzgEsiAB6kEg 9yZGVyLWNv kDozsLDrWkJgc2drPXXyVG wlCH7mdZyvX9WblII1HBLr r0v9Kw79S04vO0HufRZ+PG WhhLB3rRL2 eO9lHcHnNqV8QEkbC752Xy FckNJdVjgar2sxd4lknUz8 SrN3LELkypVfeFmaZVA1b0 HzVs22C60h IHdpZHRoPSIxNSUiIHZhbG jsfm2avG8qUm7+PGNvbCB3 vBV3eL2fKdYkWxI7IEbaB9 49InRvcCIv Ydcoy4djj0dugTd3IoQtCB PeufIugNjsWLW6r9MdYm43 V9XwpUhtg6OsArn1mm37qX Zcd3H8yPX3 Q4VqGWFnckuxxLRqnXzuTG 9mLZPiyqhtQIYwcA2zJRRi V5d8WmXvUrF8HNyiR2Lrpu O7LMIicVNp AIjkZFU7T79ju8B5QLXxUF VfPAL0qVD0fW7khAulplfz bGVmdDsgdmVydGljYWwtYW uyL001IAXk aBegBSChyN6gWJMdxKVnqS kzBW6xDDRwswtbNpHOP7lg QL4ZSrWEZZ03ZO52kOXiq7 O3kCV6I1Js OOZwpwfvgrluoUC0EXEdLA FifG06oUQmKMauUm0qf0N2 x804USNrLRDdkN26Ol4jmG ogMTBwdCBU sP5iixxqb7uobpnhQoHhKK BxMRy9ETk4KNTgwEmgYiIn XOK8CnE3STH4iFAeqF7tgN yksznqrG1i Oyc+MDVsDPFwHEk0NHlekR Q+GOGyTFI3yGwhHMskIFJt gO2iXYRcK2k3BjDeWfN3SE xwP7NpSDGc dgebSs06pB3lRsYjZnC0HT prE1AfqfE2JMCfdNFeXUnt FTA1V23ac5P8ICPfAVDwFB Q2gCE1eT8v bGlnbjogbGVmdDsgdmVydG nrUBwkZBhbP740AMSfnMya PyCvREkaRTMeCU48QV18oX Mog3X2cQW0 J8LoAPJuragajgbcfUI4GB HoSCHlnH06pBBkQTqyHa3j o5J2d619ELTvNOEpoO69Ov 9udDogMTBw sYKMfA0slqadk3nuzbaaNz CuOTVgZHi7VKn3TBFbmDtn XvUxDFC5XnZ5ERB6zXQehC 1hbGlnbjog hC3mBus+ZqUmYIchNU54AS 34iYPcs9S2pUH6X6KlKIOi apdyhempdQU7MKAxYENwaE 47cGFkZGlu Jj1aj3F1j744HCKlEJWppH 70Co3aaTscKBIpzISOlB4z qenrp3okjefsRlXfTBUzBK f7LTy2HENi rNhmSdMhWUI9OqJ6HOD6hT CooZ5cdQqckttkhK1uGsu+ W0E2vZV0hCDgwUukaKW+PC 29tm85N5Wl VrtgTqo2FJAbVPB9yID8pJ 2gUYBqMStih6Y2nIQ1M3Na mqTewn1vt4evPGUyKEsdE1 0reWRif6R5 KGZybPC6FEBgvNheHuZmuT 93Oyc+OTUofEnwt5RmEvrl u0juu5opgCn0WaViGNRicn FsaWduPSJ0 b1DxEq55F33oBXwrFWEaRZ QnBXLqZXOlsYhmaw8guC1d Ii8+IOGbwYK0hQA4sD7rTk UlAoT5CEwm I947YrXmuKQuNndav7ggk1 mzgQt9WxCwUYKmxeHydXjj CXS0d5XrQb49E9RdjHqiq1 IdXel5jg30 hDSry6A3kMO5N3WwPKJszd jxcSPjfFvsAH4gAHNlefjx MKFudL5gANUgQ9i8EsShUc P8HSnaX8Ew wcS1KYFtbQVlAWJdfFMKkV 9wrlnfl7oafdcyWgWxRNNj BRz5WOn4RGInmCcdSqReSA B4MiK0UIP9 kTEcmA5ckZancxsyrJ6tCb c+TDk3f3lveASoZT7buML1 VM16SK37fQGeq0K1lIM8W5 BhZGRpbmct wspvyMB5FPJpUPGwlI62Zr 7loWxrLh7iVAWlBPA5PJNc uNTsT1VdfS0gHcKxEENlNF YtJ0DbvONx WBwyL177QCahEcN3QEVoiu KbY4EpWZYnoGurOtM6t5E8 Dg4OSO71ZB95CQ53iLKkl1 E7aPE0N6Nd PXEmsipakousfDR0ODKaKP PylT17Ar7aqKmnDx6xKJAs WWP3MMJfoGJpF8IbeM5qDg AjMDAwMDAw Q3LioYYfOYseD667ICekTx E5EODkraItL4RiEICgzZyq NqB6z7F6Xw3EHj84KS65FZ 19fDRmf8R7 fHZ8Q2UmBCEicvvckglcsZ J2XGWkCWAjdY86Kh7xqFds Nw2zTTBzMQY3ZMEjsFMoQ6 EmwU6fFyFb UMCrUXCxG7ShjDGbNUhtP3 82KDcxDiI6OMZhnoYmY4Vd WRKyxVsiDoO8c5O0Kh0GUM iaela1J2Rp PjwvdHI+RZ11VCFbZC18yE IwqLPpv7xcnRp2XaFfXXYa MGQ6xRyzTJfke5UeXDZoW7 3uuHZqx9K2 IGNv (more content not included)... Normal [facility] US Abdomen, Limitedon 2020 US Abdomen, [...] Singh MD Transcribed by: VIRGIL Technologist: CARRIE [facility] Consent for Treatmenton 06-03 Consent for Treatment [id number]#1.0 0CD:127 [facility] IntraOperative Documentson 0 06-25-2021 IntraOperative Documents [id number]#1. 00CD:127 [facility] Postoperative Documentson Postoperative Documents [id number]#1.0 0CD:127 [facility] Coding Summary.on 06-17-2021 Coding Summary. CD:[id number] Gh 0bWw+PGhlYWQ+XQ7QYROrC 22gfYFgoK8ZO9sASF4IXGC DHGWVIS1OEB0kvMB5DPukL 2VybiAv CshzrWVgFS52WXd5QQF0eG woQSmirA8lgMLeQ9i2TnXy RT40pL70QRkoUQVuLfM9Pz ZpbjsgbWFy W7haJcEgaMBsVxq+PHRhYm xlIHdpZHRoPScxMDAlJyBz cEwnUD3wTj7cFIWgIGSvvH xhcHNlOiBj v4nfPITaIOygZT5kaOrpH7 EfdYY7CRUbq9e5Th05tNR+ PWXzCRF0oHhyEKfby181Vm Vhk6irEJH3 iHBeVPbtWMT1O09vn3A1VH FuXWGnXDV4pOI7gX1pdQpu pdtzK3NpcTUyWmL6ZNR2mT HmiQ5qoNjx dyuxcZ1wTqu+T88WGL5LCW GAEG6QPgg5U0AgEoocoCV+ QP44SCHtIC08hLAkoRGxv6 jllUf9VxGw NPIkHDO1yHvzSEydr6PfPD QpN16hkKGkb9Y4CGIptMuc aGUaAmUabFB9eU5pBVekik wqd1wukllv Lltrd4hzns71jA93O23vPP utFUKiRBQ6HMPwVWWemRza xu0tcR3mCm7+BIwaa3sdk8 hsrKi0ZoXz FDNvtkWuiQmpDZX7q2TxEl 30G7CjnLldg7ScCog8rq89 aRFlk3A6yTN0AScoKXXyuJ 8nPBalZgB4 ISJtBrIncE34cPJjANhyXj 6yoBmtbIrzTM6kRQLlstjn NFEjwT0kTNGqeSJzoXtqPI 4wNTBpbjtm s588ElGeFWL2JNWnzHBbU9 IlpX5oYiZgELNmMFNxF8Fb qSYrIXfpI190ZRtwBpE5WF CkczZxV3Rn WCAhfXcfRbT2f5Q1Zp1Ii3 YcjjnrDOT9ZVceNGB3OcO6 UgBkDhD2I4YfKys6QBOkqJ oaGG9gK4Og OKSszfsnydtjyMI5RKStUC UsbR05eBJcZNzfFr9by3A0 w699EYUpWNHswM29Mk3ysK ogMTBwdCBU sX6myjnen6jeojzsYnBlUU ThZUw9WBz2MYZzcIqeJrCv GTO2VkE3SAY2fVIuzT2pnG jdgvkmmX3f Oyc+R63djG5kAGF4MSQ5se ppNFSngiNdBE49BF36D9Ip PjwvdGFibGU+PGRpdiBzdH opAU0mQaYp p3nnq8VdEHmfH0NwZXXwJJ isQgv7DZRoFOB6nYH5rD1i LWQqUEbto4B5kEQ9W9Rgwj Hznv9rs4so DVOwPLniO52lzJAcb6G7CL HskCQ2QQXlaXdxVyMccZ92 Oyc+KYWawNlge5FzGgnvo4 edv2kmkMp9 FjDuYQQntzEkaDmgEQB2a3 PtMq27K34gRSguNXYfTJQs VWHeEJCuaThbtg5mhY7jTk 8+PGNvbCB3 aSQ7pT4fCYDbAkF9XHykC4 54AnXkxJMgAdoaz2ppk2no cEa7OlTkDNYqyfMapTmzNL U8u1PhJo80 A65pRHviFHHfLLEoRKWtUC ZekXagon5ovB8nOj7+PC9j y1hrlg76cI21fKU+PHRkIH T7qYhsZAne TPOtlV4mDMdqJiF8LNUaUp OahW19xYBzAWpvZj7xlVzk sTdeRM5aTBBpqkmrw767Mk Kcn1qrBQVs gNCaCRsiBIM7G64sd3S5DY ApHOLeBAA1xXP8pW7anVof bjogbGVmdDsgdmVydGljYW roXXqeJ944 IHRvcDsnPlBhdGllbnQgTm UaLSb0B0VqMvv2YTYbgVts FW0hpSCmJWpsEc2rcJwazE zfWD2bTUXf pxbtk791ClBnr6poSKWmaM EjLZccLCL2Q77li3J1QDGy ZBVyNFI7fNG9oF2csPnpvx ogbGVmdDsg cjIjvRjvXQypCSbwL458ZW RvcDsnPkJpcnRoIERhdGU6 KG42XI29fYVbx8R8xPB1A8 BhZGRpbmct ujafxAO5LZNbEIGtxN00Sq 9oeHgjKu4nZQYrKYX4PZFd zFLkL6EvsF6vQdVsSBJhMS LnK2AtqFIv ZNxrA259ZOneNiU4NLMofm EoO7CnFZQjfGrhAcD5m7H7 Lr2HX5A0BL88HB52jTXdo4 P5fXT8Y6Zt QAHwdurbczqtrRG5EHMqAV QzzK22Zs4efSinRd8xICMb BZM5PMAkqSXlA7EeeF2iGd AjMDAwMDAw F3KhcQWaDFwoH571TCyjSi J0LTGrsiYiP5CcXBYgwZmw TaS0l9O7Gj4OIPn3VT25XW 86jIPpr0G9 gCN7N5QvCHMwymegnhhyxK E3SNYtDDFfvK21Yq3ogZgz Sb2dDHZqHIH6IYMdxGYnG9 VcuA2vPqFh LXJtURYlH8OgzDKgWNjqL5 57VGijOzJ8KCObshNdS7Yh INChlOrcUnG9s2R8Jn7CHW IrKQ84TKQ2 jTG6VG02UD68I6SzRbszbQ FibGU+PHRhYmxlIHdpZHRo ZCdoFQPjNsFgmMaxCS5aDp 9yZGVyLWNv zEodrSPyIlUbw3zwYGMsSH ygGW0ulTkaQ3PomXD7EYYd k6y8Gx93I49cY3VqoVM+PG AvbGT5vYZ5 lF8uBbUaAtW5QRuqR153Gj WqwMPmCdvxu0vcb1fljSl4 JeB1WMCirvJziMcxIMB3t4 DpXm19F14x IHdpZHRoPSIxNSUiIHZhbG xzlp6kqW5iSa2+PGNvbCB3 pXV9nJ2cPwZpFvI8VCwdS6 49InRvcCIv Pzcwl0gaf8hclCm4LzIpMS QvbbDagTqlVHN0t3ChIu03 A1UxbJtfx2PrOtc9nq07iP Gui6E2qAH5 H7ArTTOhklzbqRBbtZorQU 9iZIIogfadKBQpgX7sJIJp O4k2RoJsCpN7YSluV9Lngt Y1FLVhlJSd RCveKKP9D69my9P4DHDbIO LnHHY8aNO7aX8epNidqjtt bGVmdDsgdmVydGljYWwtYW miE191JOTk gPulYQWieN7xFLSbmFIswD uaTZ9vNTVcjqrsBxRJZ9mi OO0OFwZOIW72TB13fFRgj7 R0eRU9K6Dy CRJewvtjfeuoqDI9TFCiJF CoiQ21nJEyIBvcXx9zl7B5 l749KLIxWHIgjH44Ma2wjK ogMTBwdCBU hY2vbfhqp3sdlvbuHnLmCS VaMNw2WXy8PPJbhXglQlMp PBO1ScJ6WYI9hKYpgJ3brB ldwirtjW6u Oyc+ITCzVHBrOHj8LFehwG Q+LEUhSAT5hTtpTQrpIDXc lM5vMEBiE6s4AcOuMzF3NH plE0EfBRYw vvvoFv76qH2oZwKzPoU4XH qlS3EvtwU8EHAheZPcCNiz PCC7K04bn0T3BBAyMRLpXF O2qGX7qL0m bGlnbjogbGVmdDsgdmVydG lfUSkwSAsrX557GNPvyOdg NlPqGIyuNPVlLL87CG13lV Ljv0B9gAY4 Y7VxYTMsguyaamibiWK3JR ImHDGzyG54sSGzRFgeDu1j c5V4v278MVBgCVJhhW89Hb 9udDogMTBw qGVGsO2uatstu1pidnygUc ChCSWiNJv7SXr7UWHduLss ZmRfVRA5LqY0SPI7rGVkiV 1hbGlnbjog xU3ePhh+LmRwGLjdZE21GF 60tHKvv8E7wMF2M9YtZTBy nzwukqtpoAX4KPXjFQLxxX 47cGFkZGlu Nr0jp6X8n714BBBdHAHqqQ 29Sw0twWaqUYBtgTDDgP7c sjavt6nytidsHvZkOUAvEI r0BVi1XDCi vDyjPtFzXQI5EsR1EOR3bZ FejT3bePksbmtzgI6hQne+ G7A6sPC3gTBenLwslLE+PC 86eg03S3Um TqdfHuu3ZCXfGCX1bXG6dW 5qQFMzNRtfg8E4sMQ9W3Td joHcop7vu0lwVFHlAVauQ9 7jlDVux0D8 XYIntNW9SWXteBiaPwSbzZ 93Oyc+MPNjgBhwf1EtUeyc f1arb7effMa1TjBgGEAzze FsaWduPSJ0 n9HqTk54U20eIPqfAHUuVT VoRHIpJRFqxFclbx9ycX9i Ii8+OXEtpMK0lEX4bK6fWf ZqGpH1SUlc R364YmTdjKUlTncep2eef4 tfkGc5EfCyCTBtdeXguEfu PHH5i5ZyYq89P1McjJbsb7 AsQbu3kz36 cTDav4F6dIV6C4ZbXEHmbo eofOBurLdeDN7cQFQapuyl ENUezD4zYJWjS6j6HfZkJz H1YVppC7Ag pjE1GQSujDAoVLUkjOUCtD 0rucvvx2ztulzjBjGqEPQf SOl9NTl0MMYcyVagTmKmRH J6AjR2VXH0 eBBmlK4yhWfwdlnbkN2lSa c+BMf4t4fqdPEdCX9ckUD0 DV27RK94xUJyp4D9qNO3B3 BhZGRpbmct iwyoyTW3CKTbMYYilC54Ke 2zpOrtIe2sEXPvCTN1ZOBr vIFpX6UgtW8tPmXuDSWsWK NtX0EifGJy EAleG742GJiqKfK8AGYkkh CxE3PdESJdyDgfUvL8y4P5 Yc1ONS64GX26MO97vFYeo8 R5vGI7N5Md KBElyakcewsljHM8ZEHpNA ItrN62Bs8apLgnAa4sUDIj WMP1UIMeuMLwR1KyeM0wTr AjMDAwMDAw A9DojQIhJFncZ198RTadNd K3KUEwibNfY5DyGNYoaShk SfW5a7E2Rc0NCt93FR65PD 96kJNwp8T3 fWU8P2ZaZZXqtuxtykzxlA B5HFKtHQBcfN71Rb1nhBjj Ak8yGPFgCMU2RWArdEWwV9 BjoS9nYtYm EHNqXFTcD7LrtGBsQHxeS6 37SHcsObM6ILFiafEmO7Ms DTRaaDpoHeS2y0I5Do7TSP tpccq2H8Cv PjwvdHI+HC24DQGrYN48fG PqfXIeq4kcfHx9MfMzGQMl GWP3lRsdFMemc6GnLZOfZ0 7omGQcz5K4 IGNv (more content not included)... Normal [facility] Main OR Intraoperative Recor don 06-17-2021 Main OR Intraoperative Record IntraOp Document Type FT Summary Primary Physician: Raman HENRY MD Finalized Date/Time: 06/17/21 09:30:46 Pt. Name: CATHERINE SHEIKHO.B./Sex: 1960 Female Med Rec #: [id number] Physician: Raman HENRY MD Financial #: [id number] Pt. Type: O Room/Bed: / Admit/Disch: 06/12/21 [...] Childress RN, Mikayla Toth Role Performed Anesthesiologist Network Manager - Primary Scrub - Primary Oil Burner Technician Time In 06/12/21 12:49:00 06/12/21 12:49:00 06/12/21 [...] and tissue Entry 1 Skin Integrity Intact, [place], Warm, and Skin Abnormality No Dry Outcomes [...] (more content not included)... Normal [facility] Consenton 06-13-2021 Consent [id number]#1.0 0CD:127 Normal [facility] Discharge Instructionson Discharge Instructions [id number]#1.0 0CD:127 Normal [facility] IntraOperative Documentson 0 06-13-2021 IntraOperative Documents [id number]#1.0 0CD:127 Normal [facility] IntraOperative Documents [id number]#1.0 0CD:127 Normal [facility] CBC w/Indiceson 06-12-2021 Erythrocyte distribution width (RBC) [Ratio] 15.6 % High 10.9-14.2 [facility] Comment on above: Performed By: #### 2 [id number] ####[facility] [id number] [place] [address] Hematocrit (Bld) [Volume fraction] 36.8 % Normal 34.0-46.0 [facility] Comment on above: Performed By: #### 2 946613, 77390059, 0972552, 7354363 ####[facility] [address] [place] [address] Hemoglobin (Bld) [Mass/Vol] 12.5 g/dL Normal 12.0-16.0 [facility] Comment on above: Performed By: #### 2 832564, 16018471, 4810436, 8366421 ####[place] [id number] MCH (RBC) [Entitic mass] 28.6 pg Normal 27.0-34.0 [facility] Comment on above: Performed By: #### 2 511735, 11669967, 6014429, 9058759 ####[place] [id number] MCHC (RBC) [Mass/Vol] 33.8 g/dL Normal 31.4-36.0 [facility] Comment on above: Performed By: #### 2 653931, 27388811, 0628550, 2983268 ####[place] [id number] MCV (RBC) [Entitic vol] 84.5 fL Normal 80.0-100.0 [facility] Comment on above: Performed By: #### 2 342957, 85783596, 1860013, 8366152 ####[address] [address] Platelet mean volume (Bld) [Entitic vol] 8.0 fL Normal 6.4-10.8 [facility] Comment on above: Performed By: #### 2 785811, 27379903, 6915963, 5068017 ####[place] [id number] Platelets (Bld) [#/Vol] 186.0 E9/L Normal 150.0-500.0 [facility] Comment on above: Performed By: #### 2 795368, 68463136, 7595106, 7474140 ####[address] [address] RBC (Bld) [#/Vol] 4.4 E12/L Normal 4.3-5.9 [facility] Comment on above: Performed By: #### 2 369683, 46678985, 6482623, 0517852 ####[place] [address] [place] [address] WBC corrected for nucl RBC Auto (Bld) [#/Vol] 5.7 E9/L Normal 4.0-11.0 [facility] Comment on above: Performed By: #### 2 737089, 18812691, 5916449, 2981604 ####[place] [address] [place] [address] CMPon 06-12-2021 Albumin [Mass/Vol] 3.9 g/dL Normal 3.3-5.0 [facility] Comment on above: Performed By: #### 2 777148, 61798034, 9546606, 1399950 ####[address] [address] Albumin/Globulin (S) [Mass conc ratio] 1.2 Normal 1.1-2.2 [facility] Comment on above: Performed By: #### 2 861508, 61711247, 5961009, 9146007 ####[address] [address] ALP [Catalytic activity/Vol] 56 Int._Unit/L Normal 21-98 [facility] Comment on above: Performed By: #### 2 656384, 32578064, 6431209, 0704193 ####[address] [address] ALT No additional P-5'-P [Catalytic activity/Vol] 23 Int._Unit/L Normal 6-46 [facility] Comment on above: Performed By: #### 2 953465, 18299107, 3514102, 2754718 ####[facility] [address] [place] [address] Anion gap [Moles/Vol] 13 mmol/L Normal 6-16 [facility] Comment on above: Performed By: #### 2 648107, 03462528, 9893784, 4134197 ####[address] [address] AST [Catalytic activity/Vol] 18 Int._Unit/L Normal 5-43 [facility] Comment on above: Performed By: #### 2 048245, 86949946, 8711992, 5395175 ####[facility] [address] [place] [address] Bilirubin [Mass/Vol] 0.6 mg/dL Normal 0.0-1.1 [facility] Comment on above: Performed By: #### 2 506544, 76794390, 3945686, 0407628 ####[facility] [address] [place] [address] Calcium [Mass/Vol] 9.0 mg/dL Normal 8.9-11.1 [facility] Comment on above: Performed By: #### 2 886721, 30393251, 8515051, 8329516 ####[place] [address] [place] [address] Chloride [Moles/Vol] 111 mmol/L Normal 101-111 [facility] Comment on above: Performed By: #### 2 290765, 11462383, 5525792, 1963090 ####[facility] [address] [place] [address] CO2 [Moles/Vol] 25 mmol/L Normal 21-31 [facility] Comment on above: Performed By: #### 2 227309, 91610440, 5721367, 1499639 ####[facility] [address] [place] [address] Creatinine [Mass/Vol] 0.7 mg/dL Normal 0.5-1.3 [facility] Comment on above: Performed By: #### 2 893392, 63997230, 5230139, 0294125 ####[facility] [address] [place] [address] Globulin (S) [Mass/Vol] 3.4 g/dL Normal 1.4-4.0 [facility] Comment on above: Performed By: #### 2 716566, 82078331, 0892995, 2216139 ####[facility] [address] [facility] [place] [address] Glucose [Mass/Vol] 99 mg/dL Normal 55-199 [facility] Comment on above: Result Comment: If t his glucose result represents a fasting glucose, interpretation should refer to the following reference range: 55-99 mg/dL Performed By: #### 2 536985, 28952748, 8024431, 7344391 ####[facility] [address] [place] [address] Potassium [Moles/Vol] 3.6 mmol/L Normal 3.5-5.3 [facility] Comment on above: Performed By: #### 2 721162, 79755157, 0503224, 2891606 ####[facility] [address] [place] [address] Protein [Mass/Vol] 7.3 g/dL Normal 6.0-7.8 [facility] Comment on above: Performed By: #### 2 256324, 59344287, 5273289, 2076515 ####[facility] [address] [place] [address] Sodium [Moles/Vol] 145 mmol/L Normal 135-145 [facility] Comment on above: Performed By: #### 2 687935, 79474427, 8640150, 9448363 ####[facility] [address] [place] [address] Urea nitrogen [Mass/Vol] 10 mg/dL Normal 5-21 [facility] Comment on above: Performed By: #### 2 551203, 52557878, 7870263, 9809485 ####[facility] [address] [place] [address] Urea nitrogen/Creatinine [Mass ratio] 14 No Units Normal 10-20 [facility] Comment on above: Performed By: #### 2 117241, 52024485, 9021899, 2529471 ####[facility] [address] [place] [address] Consent for Treatmenton 06-02 Consent for Treatment [id number] 0CD:127 Normal [facility] Endoscopic Procedure Report - Otheron 06-12-2021 Endoscopic [...] Return to activities:: After 24 hours. Normal [facility] Comment on above: Result Comment: Elec tronically Signed By: Raman HENRY MD\.br\Date and Time Signed: 06/12/21 13:09 EDT Other Comment: Darlin diaz Attachment - attachment storage system not supported [id number] Can be viewed in source systemMissing Attachment - attachment storage system not supported [id number] Can be viewed in source system Endoscopic [...] CBC, CMP and lipase Normal [facility] Comment on above: Result Comment: Elec tronically Signed By: Raman HENRY MD\.br\Date and Time Signed: 06/12/21 13:08 EDT Other Comment: Darlin diaz Attachment - attachment storage system not supported [id number] Can be viewed in source systemMissing Attachment - attachment storage system not supported [id number] Can be viewed in source systemMissing Attachment - attachment storage system not supported [id number] Can be viewed in source systemMissing Attachment - attachment storage system not supported [id number] Can be viewed in source system Inpatient Patient Summaryon 06-12-2021 Inpatient Patient Summary [place] [address] [facility] Clinical Discharge Instructions PERSON INFORMATION Name: CATHERINE [...] Mouth every day. Comment: Normal [facility] Lipase Levelon 06-12-2021 Lipase [Catalytic activity/Vol] 23 U/L Normal 13-58 [facility] Comment on above: Performed By: #### 2 865962, 11713318, 7030181, 9158080 ####[facility] [address] [place] [address] Main OR PACU I Recordon 06-02 Main OR PACU I Record PACU Phase I Docum ent Type FT Summary Primary Physician: Raman HENRY MD Finalized Date/Time: 06/12/21 14:39:20 Pt. Name: TRACIE CATHERINE Willi/Sex: 1960 Female Med Rec #: [id number] Physician: Raman HENRY MD Financial #: [id number] Pt. Type: O Room/Bed: / Admit/Disch: 06/12/21 [...] Leon RN 06/12/21 14:39 Normal [facility] Main OR Preoperative Recordo n 06-12-2021 Main OR Preoperative Record Holding Area Document Type FT Summary Primary Physician: Raman HENRY MD Finalized Date/Time: 06/12/21 11:42:13 Pt. Name: CATHERINE SHEIKH Willi/Sex: 1960 Female Med Rec #: [id number] Physician: Raman HENRY MD Financial #: [id number] Pt. Type: O Room/Bed: / Admit/Disch: 06/12/21 [...] Bravo RN 06/12/21 11:42 Normal [facility] Monitor Recordon 06-12-2021 Monitor Record [id number]. 00CD:127 Normal [facility] Outpatient Surgery Discharge Instructionon 06-12-2021 Outpatient Surgery Discharge Instruction [place] [id number] Patient Discharge Instructions PERSON INFORMATION Name: TRACIE [...] Haddad- You may receive a survey from [employer] asking you to rate your care experience. Your feedback is important and will help us understand what we do well and how we can improve the quality of care we provide to you, your loved ones and our community. It?s an honor to serve you. Thank you for choosing [facility] HERE ARE THE MEDICATION CHANGES THAT [...] every day. PATIENT EDUCATION INFORMATION Instructions: Normal [facility] Patient Education - Texton 0 06-12-2021 Patient Education - Text Normal [facility] Progress Note-Physicianon Progress Note-Physician Patient: CATHERINE [...] report . Respiratory: Adequate air exchange with orthodoxy of preoperative function.. Cardiovascular: Cardiovascular function is stable and has returned to preoperative levels.. Neurologic: Pt has returned to preoperative baseline.. Review / Management Condition: Stable. Assessment Anesthetic outcome No anesthetic complications noted. Plan Transfer/ Discharge: Patient can be discharged from PACU when criteria met. Condition good. Normal [facility] Comment on above: Result Comment: Elec [...] 1 EA, Refill(s) 0, PER PHYSICIAN INSTRUCTIONS, [facility], 166, cm, 04/23/21 9:16:00 EDT, [...] data available Respiratory: Adequate air exchange with orthodoxy of preoperative function.. Cardiovascular: Cardiovascular function is stable and has returned to preoperative levels.. Neurologic: Pt has returned to preoperative baseline.. Review / Management Condition: Stable. Assessment Anesthetic outcome No anesthetic complications noted. Plan Transfer/ Discharge: Patient can be discharged from PACU when criteria met. Condition good. Normal [facility] Comment on above: Result Comment: Elec tronically Signed By: Albert Dunbar JR, DO eGFRon 06-12-2021 GFR/1.73 sq M.predicted among blacks MDRD (S/P/Bld) [Vol rate/Area] mL/min/{1.73_m2} Normal >=59 [facility] Comment on above: Order Comment: Order added by Discern Expert. Result Comment: eGFR is race adjusted. AA=. Performed By: #### 2 688462, 86128119, 3213646, 3678120 ####[facility] [address] [place] [address] GFR/1.73 sq M.predicted among non-blacks MDRD (S/P/Bld) [Vol rate/Area] mL/min/{1.73_m2} Normal >=59 [facility] Comment on above: Order Comment: Order added by Discern Expert. Result Comment: Biologist precious kidney disease could be indicated at eGFR's of less than 60 mL/min/1.73m2. Kidney failure is indicated at less than 15 mL/min/1.73m2. Performed By: #### 2 288613, 76078097, 5772853, 1933400 ####[facility] [address] [place] [address] Progress Note-Physicianon Progress Note-Physician Patient: CATHERINE SHEIKH [...] review: No qualifying data available . Plan [place] [employer] Anesthesiologists (ASA) physical status classification: Class II. Anesthetic Preoperative Plan Anesthesia: Monitored anesthesia care and general anesthesia if required.. Anesthetic plan, risks, benefits, and alternatives discussed with the patient and/or family. Pt. and/or family present and agree to proceed as planned.. Discussed the importance of abstaining from tobacco products, and offered counseling if desired.. Normal [facility] Comment on above: Result Comment: Elec tronically Signed By: Albert Dunbar JR, DO.wes\Date and Time Signed: 06/11/21 14:42 EDT Vital Signs Date Time Vital Sign Value Performing Clinician Temitope tamez 12-27-2023 12:30-0500 Body height 165.1 cm [facility] 12-27-2023 12:30-0500 Body mass index (BMI) [Ratio] 36.3 kg/m2 [facility] 12-27-2023 12:30-0500 Body temperature 98.2 [degF] [facility] 12-27-2023 12:30-0500 Body weight 99.1 kg [facility] 12-27-2023 12:30-0500 Heart rate 74 /min [facility] 12-27-2023 12:30-0500 Respiratory rate 18 /min [facility] 12-27-2023 12:30-0500 SaO2% (BldA) [Mass fraction] 97 % [facility] Encounters Encounter Date Encounter Type [...] Not Available Start: 12-27-2023 End: 12-27-2023 ambulatory [facility] Work Phone: Start: 12-27-2023 End: 12-27-2023 Patient encounter procedure [facility] Work Phone: Start: 12-16-2022 End: 12-17-2022 ambulatory VAIL H FAWWAD Facility:H1 Start: 09-24-2022 End: 09-25-2022 ambulatory VAIL H FAWWAD Facility:[facility] Start: 05-13-2022 End: 07-09-2022 ambulatory FRANCIA DINH Facility:[facility] Start: 04-08-2022 End: 04-09-2022 ambulatory VAIL H FAWWAD Facility:[facility] Start: 03-25-2022 End: 03-26-2022 ambulatory VAIL H FAWWAD Facility:H1 Payers Date Payer Category Payer Unknown [id number] 1960 Self-pay [id number] 1960 Unknown [id number] 2.16.84 0.1.672294.3.579.2.593 1960 Unknown [id number] 2.16.84 0.1.829880.3.579.2.593 1960 Unknown [id number] 2.16.84 0.1.261357.3.579.2.593 1960 Unknown [id number] 2.16.84 0.1.109502.3.579.2.593 1960 Unknown [id number] 2.16.84 0.1.796415.3.579.2.593 1960 Unknown [id number] 2.16.84 0.1.396006.3.579.2.1259 1960 Unknown [id number] 2.16.84 0.1.872475.3.579.2.1259 1960 Unknown [id number] 2.16.84 0.1.100747.3.579.2.1259 1960 Unknown [id number] 2.16.84 0.1.469482.3.579.2.1259 1960 Unknown [id number] 2.16.84 0.1.196803.3.579.2.1259 1960 Unknown [id number] 2.16.84 0.1.784556.3.579.2.1259 1960 Unknown [id number] 2.16.84 0.1.674992.3.579.2.1259 Self-pay Self Pay [id number] Unknown [id number] 2.16.84 0.1.950933.3.579.2.593 Unknown [place] BC/BS [id number] Unknown Renita VALENTIN [id number] Unknown Melvina Barrientos VALENTIN [id number] Social History Date Type Detail Facility Tobacco smoking stat NHIS Unknown if ever smoked [facility] Work Phone: Start: 1960 Sex Assigned At Female F [facility] Clinical Note 04-08-2022 Note Date & Type [...] Negative. IMPRESSION: Moderate osteoarthritis Electronically authenticated by: MAKENZEI GOLDMAN Date: 2022-04-08 17:50 [facility] Clinical Note 10-09-2021 Note Date & [...] Brother. Hypertension: Sister. Hypothyroidism: Sister. [facility] Comment on above: Result Comment: Elec [...] No Hyperplastic polyp(s) present No [facility] History and physical note 06-13-2021 Note Date & Type Note Facility 06-13-2021 Note [id number] #[id number]:127 [facility] Evaluation note Note Date & Type Note Facility Evaluation note No assessment information availa [facility] Work Phone: Summary Purpose Family History No [...] section and content) DATE CREATED AUTHOR 05/24/2022 [facility] DATE CREATED AUTHOR AUTHOR'S ORGANIZ ATION 12/20/2022 [facility] DATE CREATED AUTHOR AUTHOR'S ORGANIZ ATION 05/21/2024 [facility] EPIC Care Teams [...] BE BASED ON THE PRIMARY CLINICAL RECORDS. [employer] [facility]. provides no warranty or guarantee of the accuracy or completeness of information in this document.
--- NOTE | 2024-10-21 01:38 | ECG_ITS ---
[facility] Test Date: 2024-10-21 Pat Name: JUNI HODGES Department: Room: - Gender: Female Product Lead: : 1960 Requested By: SHAIKH VALENTE Order Number: [id number] Reading MD: ORLIN AYON Measurements Intervals [place] Rate: 76 P: 56 [place]: 176 QRS: 67 QRSD: 76 T: 35 QT: 348 QTc: 379 Interpretive Statements 1100 Sinus rhythm 1102 Sinus arrhythmia 4068 Nonspecific Twave abnormality 9130 borderline ECG No previous ECG available for comparison Electronically Signed On 10-21-2024 7:02:38 EST by ORLIN AYON
--- NOTE | 2024-10-21 01:38 | XR_ITS ---
The [address] [address] Patient Name: JUNI HODGES MRN: [id number] date: 1960 Sex: F Assigned Patient Location: ER Current Patient Location: ER Accession/Order Number: [id number] Exam Date: 10/21/2024 01:45 Report Date: 10/21/2024 02:07 At the request of: LIAT VALENZUELA Procedure: XR chest 1V EXAM: XR chest 1V HISTORY: CP COMPARISON: Chest radiographs dated 02/02/2024. TECHNIQUE: One view of the chest was obtained. FINDINGS: The cardiac silhouette is stable in size. Aortic atherosclerotic disease is seen. The lungs are clear. There is no significant pneumothorax or pleural effusion. No acute osseous abnormality is seen. XR/XR chest 1V IMPRESSION: 1. No acute cardiopulmonary abnormality. Electronically authenticated by: Jo ORDONEZ Date: 10/21/2024 02:07
--- NOTE | 2024-10-21 01:39 | ED_ITS ---
HPI - Chest Pain General Chief Complaint: Chest Pain Stated Complaint: CHEST PAIN Time Seen by Provider: 10/21/24 01:30 Source: patient Mode of arrival: walk-in Limitations: no limitations History of Present Illness HPI narrative: 64-year-old female presents for chest pain. She had about 5 minutes of this pain in the morning and then it went away and then started again 2 or 3 hours ago. She was at a [employer] tonight and was eating pizza. She is known to have gallstones and she has no history of heart disease. Its mostly across the upper chest. She does not seem to have any pain in the epigastric area of the right upper quadrant. No shortness of breath fever trauma or vomiting. Related Data Home Medications ?Medication ?Instructions ?Recorded ?Confirmed alendronate 70 mg tablet mg PO 10/21/24 atorvastatin 10 mg tablet mg 10/21/24 levothyroxine 100 mcg tablet mcg 10/21/24 Allergies Allergy/AdvReac Type Severity Reaction Status Date / Time No Known Drug Allergies Allergy Verified 10/21/24 01:32 Review of Systems ROS Narrative A ten point review of systems is negative except as noted above. PFSH PFSH Social History Smoking status: Never smoker Little interest or pleasure in doing things: not at all Feeling down, depressed, or hopeless: not at all Exam Narrative Exam Narrative: Nurses note and vital signs reviewed and patient is not hypoxic. General: The patient appears well and in no apparent distress. Patient is resting comfortably on cart. Skin: Warm, dry, no pallor noted. There are areas of urticaria on the bilateral lower axillary areas Head: Normocephalic, atraumatic Eye: Normal conjunctiva, no drainage Ears, Nose, Mouth, and Throat: oral mucosa is moist. Nares patent. Cardiovascular: Regular Rate and Rhythm Respiratory: Patient is in no distress, no accessory muscle use, lungs are clear to auscultation, no wheezing, rales or rhonchi Back: non-tender GI: Soft and nontender. No tenderness in the epigastric area or the right upper quadrant. Musculoskeletal: The patient has no evidence of calf tenderness, no pitting edema, symmetrical pulses noted bilaterally Neurological: A&O, normal speech Psychiatric: Cooperative Constitutional Vital Signs, click to edit/add: Last Vital Signs Temp 97.6 F 10/21/24 01:28 Pulse 87 10/21/24 01:28 Resp 18 10/21/24 01:28 BP 173/78 H 10/21/24 01:28 Pulse Ox 95 10/21/24 01:28 O2 Del Method Room Air 10/21/24 01:28 Course Vital Signs Vital signs: Vital Signs Temperature 97.6 F 10/21/24 01:28 Pulse Rate 87 10/21/24 01:28 Respiratory Rate 18 10/21/24 01:28 Blood Pressure 173/78 H 10/21/24 01:28 Pulse Oximetry 95 10/21/24 01:28 Oxygen Delivery Method Room Air 10/21/24 01:28 Temperature 97.6 F 10/21/24 01:28 Pulse Rate 87 10/21/24 01:28 Respiratory Rate 18 10/21/24 01:28 Blood Pressure 173/78 H 10/21/24 01:28 Pulse Oximetry 95 10/21/24 01:28 Oxygen Delivery Method Room Air 10/21/24 01:28 MDM - Chest Pain MDM Narrative Medical decision making narrative: Her workup including 2 sets of troponin is negative. She was given a GI cocktail with resolution of her symptoms. At this point I do not suspect cardiac etiology. She has omeprazole at home that she will start taking on a daily basis and she will follow-up with her doctor. Treatment diagnosis and follow-up were discussed with the patient. Differential Diagnosis Differential diagnosis: Likely pneumothorax, unstable angina pectoris, atypical chest pain, st elevation myocardial infarction, costochondritis and chest pain Lab Data Attestation: I reviewed the patient's lab results. Labs: Lab Results 10/21/24 10/21/24 Range/Units 01:45 02:35 WBC 7.0 (4.0-11.0) 10^3/uL RBC 4.44 (4.20-5.40) 10^6/uL Hgb 12.5 (12.0-16.0) g/dL Hct 37.7 (36.0-48.0) % MCV 84.9 (81.0-99.0) fL MCH 28.2 (26.7-34.0) pg MCHC 33.2 (29.9-35.2) g/dL RDW 14.6 (11.0-15.0) % Plt Count 181 (150-450) 10^3/uL MPV 9.5 (9.5-13.5) fL Neut % (Auto) 63.4 (43.0-75.0) % Lymph % (Auto) 29.1 (20.5-60.0) % [place] % (Auto) 5.7 (1.7-12.0) % Eos % (Auto) 1.1 (0.9-7.0) % Baso % (Auto) 0.4 (0.2-2.0) % Neut # (Auto) 4.4 (1.4-6.5) 10^3/uL Lymph # (Auto) 2.0 (1.2-3.8) 10^3/uL [place] # (Auto) 0.4 (0.3-0.8) 10^3/uL Eos # (Auto) 0.1 (0.0-0.7) 10^3/uL Baso # (Auto) 0.0 (0.0-0.1) 10^3/uL Abs Immat Gran (auto) 0.02 (0.00-0.03) 10^3/uL Imm/Tot Granulo (auto) 0.3 (0.0-0.5) % Sodium 141 (136-145) mmol/L Potassium 3.5 (3.5-5.1) mmol/L Chloride 106 (98-107) mmol/L Carbon Dioxide 29.6 (21.0-32.0) mmol/L Anion Gap 8.9 BUN 13.0 (7.0-18.0) mg/dL Creatinine 0.88 (0.55-1.02) mg/dL Est GFR ( Amer) >60 (>=60 mL/min/1.73m^2) Est GFR (Non-Af Amer) >60 (>=60 mL/min/1.73m^2) BUN/Creatinine Ratio 14.8 Glucose 128 H (74-106) mg/dL Calcium 9.4 (8.5-10.1) mg/dL Total Bilirubin 0.4 (0.2-1.0) mg/dL Direct Bilirubin 0.1 (0.0-0.2) mg/dL AST 17 (15-37) U/L ALT 24 (14-59) U/L Alkaline Phosphatase 63 (46-116) U/L Troponin I High Sens 8.3 7.8 (4.0-51.3) pg/mL Total Protein 7.5 (6.4-8.2) g/dL Albumin 3.6 (3.4-5.0) g/dL Globulin 3.9 g/dL Albumin/Globulin Ratio 0.9 Amylase 32 (25-115) U/L Lipase 27.0 (16.0-77.0) U/L Imaging Data Chest x-ray: Radiologist's impression: ITS Impressions Chest X-Ray 10/21/24 01:38 IMPRESSION: 1. No acute cardiopulmonary abnormality. Electronically authenticated by: Jo ORDONEZ Date: 10/21/2024 02:07 ECG Data Attestation: I personally reviewed and interpreted this ECG as follows: (EKG on my interpretation shows normal sinus rhythm with a rate of 76 and no acute change) Heart Score History: Slightly/Non-Suspicious ECG: Normal Age: >45-<65 years Risk Factors: 1 or 2 Risk Factors Troponin: <Normal Limit Total Heart Score Recommendations & Risks:: 2 Discharge Plan Discharge Chief Complaint: Chest Pain Clinical Impression: Chest pain Patient Disposition: Home, Self-Care Time of Disposition Decision: 03:16 Condition: Good Mode of Transportation: Private Vehicle Prescriptions / Home Meds: No Action atorvastatin 10 mg tablet alendronate 70 mg tablet PO levothyroxine 100 mcg tablet Print Language: Greenlandic Instructions: Chest Pain (ED) Referrals: Shaikh Chapin MD [Primary Care Provider] - 1 week
[2024-10-21] MEDS: NITROGLYCERIN 0.4 MG BOTTLE SL ×2 (01:50→02:20)
[2024-10-21] MEDS: ASPIRIN 81 MG TAB.CHEW 324 MG PO (01:50)
[2024-10-21 01:53] LABS: Basophils Percent Auto 0.4 % (0.2-2.0); Eosinophils Absolute Auto 0.1 10^3/uL (0.0-0.7); Eosinophils Percent Auto 1.1 % (0.9-7.0); Hematocrit 37.7 % (36.0-48.0); Hemoglobin 12.5 g/dL (12.0-16.0); Immature Granulocytes Abs Auto 0.02 10^3/uL (0.00-0.03); Immature Granulocytes Pct Auto 0.3 % (0.0-0.5); Lymphocytes Percent Auto 29.1 % (20.5-60.0); Mean Corpuscular HGB Conc 33.2 g/dL (29.9-35.2); Mean Corpuscular Hemoglobin 28.2 pg (26.7-34.0); Mean Corpuscular Volume 84.9 fL (81.0-99.0); Mean Platelet Volume 9.5 fL (9.5-13.5); Monocytes Absolute Auto 0.4 10^3/uL (0.3-0.8); Monocytes Percent Auto 5.7 % (1.7-12.0); Neutrophils Absolute Auto 4.4 10^3/uL (1.4-6.5); Neutrophils Percent Auto 63.4 % (43.0-75.0); Platelet Count 181 10^3/uL (150-450); Red Blood Count 4.44 10^6/uL (4.20-5.40); Red Cell Distribution Width 14.6 % (11.0-15.0)
[2024-10-21 02:11] LABS: Alanine Aminotransferase 24 U/L (14-59); Albumin Globulin Ratio 0.9; Albumin Level 3.6 g/dL (3.4-5.0); Alkaline Phosphatase 63 U/L (46-116); Amylase 32 U/L (25-115); Anion Gap 8.9; Aspartate Amino Transferase 17 U/L (15-37); BUN Creatinine Ratio 14.8; Bilirubin Direct 0.1 mg/dL (0.0-0.2); Bilirubin Total 0.4 mg/dL (0.2-1.0); Calcium 9.4 mg/dL (8.5-10.1); Carbon Dioxide 29.6 mmol/L (21.0-32.0); Chloride 106 mmol/L (98-107); Estimated GFR (African America >60 (>=60 mL/min/1.73m^2); Estimated GFR (Non-African Ame >60 (>=60 mL/min/1.73m^2); Globulin 3.9 g/dL; Glucose 128 mg/dL (74-106); Potassium 3.5 mmol/L (3.5-5.1); Sodium 141 mmol/L (136-145); Total Protein 7.5 g/dL (6.4-8.2); Troponin I High Sensitivity 8.3 pg/mL (4.0-51.3)
[2024-10-21] MEDS: lidocaine HCL 15 ML, MAG HYDROX/ALUMINUM HYD/SIMETH 30 ML, HYOSCYAMINE SULFATE 0.25 MG PO (02:29)
[2024-10-21 02:56] LABS: Troponin I High Sensitivity 7.8 pg/mL (4.0-51.3)
[2024-10-21 03:25] VITALS: BP 173/78; PULSE 67; O2SAT 96
== END 2024-10-21 03:26 | disposition home or self-care (01) ==
PROVIDERS: Emergency Provider Emergency Medicine; PCP Internal Medicine
DX: R07.9 Chest pain, unspecified (principal); K80.20 Calculus of gallbladder without cholecystitis without obstruction
CPT/HCPCS: 36415; 71045; 80048; 80076; 82150; 83690; 84484; 85025; 93005; 99285

== ENCOUNTER 2024-12-15 12:51 | Outpatient (OUT) | payer MEDICARE, OTHER, SELFPAY ==
--- OUTSIDE RECORDS SUMMARY | 2024-12-15 12:55 | XMS_ITS | CCD ---
Author Organization [facility] Care Team Providers Care [facility] Director Name Role Phone FAWWAD, VAIL H Attending [...] Unavailable FAWWAD, VAIL H Primary Care Unavailable FRANCIA DINH Admitting Unavailable FAWWAD, VAIL H Primary Care Unavailable REQUEST, NONE LISTED Consulting Unavaila ble REQUEST, NONE LISTED Attending Unavaila ble REQUEST, NONE LISTED Admitting Unavaila ble FAWWAD, VAIL H Primary Care Unavailable FAWWAD, VAIL H Consulting Unavailable FAWWAD, VAIL H Attending Unavailable FAWWAD, VAIL H Admitting Unavailable Zachary Faulkner MD Primary Care Provider Farnaz Turpin NP Unavailable FARNAZ TURPIN Attending UnavailCARLA Henderson Attending Unavailable FAWWAD, VAIL Attending Unavailable DEBORAH GIPSON Attending Unavailable DEBORAH GIPSON Referring Unavailable FAWWAD, Attending Unavailable FAWWAD, VAIL Attending Unavailable FAWWAD, VAIL Attending Unavailable Allergies Allergy Classification Reported Allergen(s) Allergy Type Date of Onset Reaction(s) Facility (5 sources) Cephalexin Drug Allergy 01-04-2024 [facility] (5 sources) Clindamycin Drug Allergy 01-04-2024 [facility] Medications Current Medications Medication Drug Class(es) Dates Sig (Normalized) Sig (Original) alendronic acid 70 mg oral tablet (6 sources) Bisphosphonate Start: 05-17-2024 take 1 tablet by mouth in the morning alendronate (Fosamax) 70 MG tablet Indications: Osteopenia after menopause Take 1 tablet (70 mg) by mouth every 7 (seven) days Take in the morning with a full glass of water, on an empty stomach, and do not take anything else by mouth or lie down for the next 30 min. 12 tablet 1 05/17/2024 Active Start: 12-27-2023 Alendronate Ac tive MG PO December 27, 2023 12:00am atorvastatin 10 mg oral tablet (7 sources) HMG-CoA Reductase Inhibitor Start: 05-17-2024 End: 11-28-2024 take 1 tablet by mouth once daily atorvastatin (Lipitor) 10 MG tablet Indications: Hyperlipidemia, unspecified hyperlipidemia type (CMS/HCC) Take 1 tablet (10 mg) by mouth Daily 90 tablet 1 11/28/2024 Active Start: 12-27-2023 take 10 mg by mouth [...] TAB PO Daily December 27, 2023 12:00am cetirizine hydrochloride 10 mg oral tablet (2 sources) Histamine-1 Receptor Antagonist Start: 11-30-2024 End: 02-28-2025 take 1 tablet by mouth once daily cetirizine (ZyrTEC) 10 MG tablet Indications: Viral upper respiratory tract infection Take 1 tablet (10 mg) by mouth Daily 30 tablet 2 11/30/2024 02/28/2025 Active clindamycin 300 mg oral capsule (1 source) Lincosamide Antibacterial Start: 12-27-2023 take 300 mg by mouth every eight hours Clindamycin Hcl Active 300 MG PO Q8H 21 7 December 27, 2023 12:00am desonide 0.5 mg/ml topical cream (5 sources) Corticosteroid Start: 12-27-2023 End: 11-30-2024 desonide (DesOwen) 0.05 % cream Apply topically 2 (two) times a day to affected area 12/27/2023 11/30/2024 Discontinued (Med list cleanup) fluticasone propionate 0.05 mg/actuat metered dose nasal spray (2 sources) Corticosteroid Start: 11-30-2024 End: 11-30-2025 take 1-2 spray(s) nasal route once daily fluticasone (Flonase) 50 MCG/ACT nasal spray Indications: Viral upper respiratory tract infection Administer 1-2 sprays into each nostril Daily Shake gently. Before first use, prime pump. After use, clean tip and replace cap. 16 g 2 11/30/2024 11/30/2025 Active levothyroxine sodium 0.1 mg oral tablet (7 sources) l-Thyroxine Start: 05-17-2024 End: 11-28-2024 take 1 tablet by mouth once daily levothyroxine (Synthroid, Levoxyl) 100 MCG tablet Indications: Other specified hypothyroidism (CMS/HCC) Take 1 tablet (100 mcg) by mouth Daily 90 tablet 11/28/2024 Active Start: 12-27-2023 take 100 ug by mouth once daily Levothyroxine Active 100 MCG PO Daily December 27, 2023 12:00am omeprazole 40 mg delayed release oral capsule (5 sources) Proton Pump Inhibitor Start: 05-17-2024 take 1 capsule by mouth once daily omeprazole (PriLOSEC) [address] capsule Indications: Gastroesophageal reflux disease without esophagitis Take 1 capsule (40 mg) by mouth Daily 90 capsule 1 05/17/2024 Active Problems Active Problems Problem Classification Problem Date Documented Date Episodic/Chronic Disorders of lipid metabolism (13 sources) Hyperlipidemia, unspecified; Translations: [Hyperlipidemia] Onset: 03-25-2022 Chronic Esophageal disorders (7 sources) Gastroesophageal reflux disease; Translations: [Gastro-esophageal reflux disease without esophagitis] Onset: 02-15-2024 02-15-2024 Chronic Osteoarthritis (4 sources) Unilateral primary osteoarthritis, left hip; Translations: [UNI PRIM OSTEOARTHRITIS LT HIP] Onset: 05-13-2022 Chronic Osteoporosis (5 sources) Osteoporosis; Translations: [Age-related osteoporosis without current pathological fracture] Onset: 02-15-2024 02-15-2024 Chronic Other lower respiratory disease (1 source) Other nonspecific abnormal finding of lung field; Translations: [OTH NONSPECIFIC ABN FIND LNG FIELD] Onset: 12-19-2022 Episodic Other screening for suspected conditions (not mental disorders or infectious disease) (6 sources) Encounter for screening mammogram for malignant neoplasm of breast; Translations: [Patient encounter status] Onset: 09-24-2022 Episodic Other upper respiratory infections (4 sources) Viral upper respiratory tract infection; Translations: [Acute upper respiratory infection, unspecified] Onset: 11-30-2024 11-30-2024 Episodic Residual codes; unclassified (1 source) Family history of malignant neoplasm of breast; Translations: [FAMILY HX MALIG NEOPLASM OF BREAST] Onset: 09-29-2022 Episodic Thyroid disorders (11 sources) Hypothyroidism, unspecified; Translations: [Hypothyroidism] Onset: 03-27-2022 Chronic Past or Other Problems Problem Classification Problem Date Documented Da te Episodic/Chronic Abdominal pain (5 sources) Indigestion; Translations: [Epigastric pain] Onset: 01-04-2024 01-04-2024 Episodic Biliary tract disease (5 sources) Cholelithiasis without obstruction; Translations: [Calculus of gallbladder without cholecystitis without obstruction] Onset: 01-04-2024 01-04-2024 Episodic Other bone disease and musculoskeletal deformities (5 sources) Postmenopausal osteopenia; Translations: [Other specified disorders of bone density and structure, unspecified site] Onset: 11-18-2023 11-18-2023 Episodic Other lower respiratory disease (5 sources) Multiple nodules of lung; Translations: [Other nonspecific abnormal finding of lung field] Onset: 01-04-2024 01-04-2024 Episodic Other lower respiratory disease (5 sources) Respiratory tract infection; Translations: [Other specified respiratory disorders] Onset: 02-03-2024 02-03-2024 Episodic Other lower respiratory disease (5 sources) Disorder of respiratory system; Translations: [Respiratory disorder, unspecified] Onset: 02-03-2024 02-03-2024 Episodic Other nervous system disorders (4 sources) Anesthesia of skin; Translations: [ANESTHESIA OF SKIN] Onset: 04-08-2022 Episodic Other non-traumatic joint disorders (1 source) Pain in left hip; Translations: [PAIN IN LEFT HIP] Onset: 05-16-2022 Episodic Otitis media and related conditions (5 sources) Acute suppurative otitis media without spontaneous rupture of ear drum; Translations: [Acute suppurative otitis media without spontaneous rupture of ear drum, bilateral] Onset: 02-03-2024 02-03-2024 Episodic Screening and history of mental health and substance abuse codes (5 sources) Ex-smoker; Translations: [Personal history of nicotine dependence] Onset: 01-04-2024 01-04-2024 Episodic Skin and subcutaneous tissue infections (5 sources) Cellulitis of face; Translations: [Cellulitis of face] Onset: 01-04-2024 01-04-2024 Episodic Results Test Name Value Interpretation Reference [...] MOLINA Date: 2022-12-16 14:13 Normal [facility] VICKEY - VITAMIN Don 12-16-2022 VIT D 25-OH 28.8 ng/mL Normal [facility] Comment on above: Performed By: #### D ATVITD #### [facility] [address] [place] [address] Dr. Emmanuel Hillman VIT D RANGES SEE BELOW Normal [facility] Comment on above: Result Comment: <20 ng/mL Vit D deficient 20 - <30 ng/mL Vit D insufficient 30 - 100 ng/mL Vit D sufficient >100 ng/mL Potential Toxicity Performed By: #### D ATVITD #### [facility] [address] [place] [address] Dr. Emmanuel Hillman GLYCOHEMOGLOBIN A1Con 2022 ADA RECOMMENDATION SEE BELOW Normal [facility] Comment on above: Result Comment: ADA RECOMMENDED LIMIT 4.0 - 6.0 ADA THERAPEUTIC TARGET < 7.0 ACTION SUGGESTED > 7.0 Performed By: #### D ATA1C #### [facility] [address] [place] [address] Dr. Emmanuel Hillman Glucose [Mass/Vol] 108 mg/dL Normal [facility] Comment on above: Performed By: #### D ATA1C #### [facility] [address] [address] [address] Emmanuel Hillman HbA1c (Bld) [Mass fraction] 5.4 % Normal 4.5-6.2 [facility] Comment on above: Performed By: #### D ATA1C #### [facility] [address] [place] [address] Dr. Emmanuel Hillman LIPID PROFILEon 12-16-2022 CHOL-HDL RATIO NORM SEE BELOW Normal [facility] Comment on above: Result Comment: 3.3 - 4.4 LOW RISK 4.4 - 7.1 AVERAGE RISK 7.1 - 11.0 MODERATE RISK >11.0 HIGH RISK Performed By: #### L IPID, TSH, LIVER #### [facility] [address] [address] [address] Emmanuel Hillman Cholesterol [Mass/Vol] 148 mg/dL Normal <=200 [facility] Comment on above: Performed By: #### L IPID, TSH, LIVER #### [facility] [address] [address] [address] Emmanuel Hillman Cholesterol in HDL [Mass/Vol] 44 mg/dL Normal 40-60 [facility] Comment on above: Performed By: #### L IPID, TSH, LIVER #### [facility] [address] [address] [address] Emmanuel Hillman Cholesterol in LDL [Mass/Vol] 79.0 mg/dL Normal [facility] Comment on above: Performed By: #### L IPID, TSH, LIVER #### [facility] [address] [address] [address] Emmanuel Hillman Cholesterol.total/Cho lesterol in HDL [Mass ratio] 3.4 {ratio} Normal [facility] Comment on above: Performed By: #### L IPID, TSH, LIVER #### [facility] [address] [address] [address] Emmanuel Hillman HDL NORMAL > or = 60 mg/dl - LO W CARDIOVASCULAR RISK <40 mg/dl - HIGH CARDIOVASCULAR RISK Normal [facility] Comment on above: Performed By: #### L IPID, TSH, LIVER #### [facility] [address] [address] [address] Emmanuel Hillman LDL CALC NORMAL SEE BELOW Normal [facility] Comment on above: Result Comment: <100 mg/dl OPTIMAL 100 - 129 mg/dl NEAR OR ABOVE OPTIMAL 130 - 159 mg/dl BORDERLINE HIGH 160 - 189 mg/dl HIGH >190 mg/dl VERY HIGH Performed By: #### L IPID, TSH, LIVER #### [facility] [address] [place] [address] Dr. Emmanuel Hillman Triglyceride [Mass/Vol] 125 mg/dL Normal <=150 [facility] Comment on above: Performed By: #### L IPID, TSH, LIVER #### [facility] [address] [place] [address] Dr. Emmanuel Hillman VLDL CALC 25.0 mg/dL Normal [facility] Comment on above: Performed By: #### L IPID, TSH, LIVER #### [facility] [address] [place] [address] Dr. Emmanuel Hillman LIVER PROFILEon 12-16-2022 Albumin [Mass/Vol] 3.7 g/dL Normal 3.4-5.0 [facility] Comment on above: Performed By: #### L IPID, TSH, LIVER #### [facility] [address] [place] [address] Dr. Emmanuel Hillman Albumin/Globulin [Mass ratio] 0.9 {ratio} Normal [facility] Comment on above: Performed By: #### L IPID, TSH, LIVER #### [facility] [address] [place] [address] Dr. Emmanuel Hillman ALP [Catalytic activity/Vol] 69 U/L Normal 46-116 [facility] Comment on above: Performed By: #### L IPID, TSH, LIVER #### [facility] [address] [place] [address] Dr. Emmanuel Hillman ALT [Catalytic activity/Vol] 34 U/L Normal 14-59 [facility] Comment on above: Performed By: #### L IPID, TSH, LIVER #### [facility] [address] [place] [address] Dr. Emmanuel Hillman AST [Catalytic activity/Vol] 17 U/L Normal 15-37 [facility] Comment on above: Performed By: #### L IPID, TSH, LIVER #### [facility] [address] [place] [address] Dr. Emmanuel Hillman BILI, CONJUGATED 0.1 mg/dL Normal 0.0-0.2 [facility] Comment on above: Performed By: #### L IPID, TSH, LIVER #### [facility] [address] [address] [address] Emmanuel Hillman Bilirubin [Mass/Vol] 0.4 mg/dL Normal 0.2-1.0 [facility] Comment on above: Performed By: #### L IPID, TSH, LIVER #### [facility] [address] [place], [place] [address] Dr. Emmanuel Hillman Globulin (S) [Mass/Vol] 4.3 g/dL Normal [facility] Comment on above: Performed By: #### L IPID, TSH, LIVER #### [facility] [address] [place], [place] [address] Dr. Emmanuel Hillman Protein [Mass/Vol] 8.0 g/dL Normal 6.4-8.2 [facility] Comment on above: Performed By: #### L IPID, TSH, LIVER #### [facility] [address] [address] [address] Emmanuel Hillman TSHon 12-16-2022 TSH 5.447 uIU/mL Critically high 0.358-3.740 [facility] Comment on above: Performed By: #### L IPID, TSH, LIVER #### [facility] [address] [address] [address] Emmanuel Hillman MG MAMM SCREEN 3D MEKA CADon 09-24-2022 MG MAMM SCREEN 3D MEKA CAD Patient: CATHERINE SHEIKH Exam Date: 09/24/2022 : 1960 Gender:F Ordering : SHAIKH Quintin CHAPIN . Admission #: [id number] Family : Order #: [id number] CLICK HERE TO VIEW EXAM RADIOLOGY REPORT [...] breast cancer at age 69. LOCATION: [facility] BREAST COMPOSITION: Scattered areas fibroglandular density. [...] on 09/24/2022 at 13:35 Normal [facility] LIPID PROFILEon 03-25-2022 CHOL-HDL RATIO NORM SEE BELOW Normal [facility] Comment on above: Result Comment: 3.3 - 4.4 LOW RISK 4.4 - 7.1 AVERAGE RISK 7.1 - 11.0 MODERATE RISK >11.0 HIGH RISK Performed By: #### L IPID, TSH #### [facility] [address] [address] [address] Emmanuel Hillman Cholesterol [Mass/Vol] 149 mg/dL Normal <=200 [facility] Comment on above: Performed By: #### L IPID, TSH #### [facility] [address] [address] [address] Emmanuel Hillman Cholesterol in HDL [Mass/Vol] 44 mg/dL Normal 40-60 [facility] Comment on above: Performed By: #### L IPID, TSH #### [facility] [address] [address] [address] Emmanuel Hillman Cholesterol in LDL [Mass/Vol] 87.6 mg/dL Normal [facility] Comment on above: Performed By: #### L IPID, TSH #### [facility] [address] [address] [address] Emmanuel Hillman Cholesterol.total/Cho lesterol in HDL [Mass ratio] 3.4 {ratio} Normal [facility] Comment on above: Performed By: #### L IPID, TSH #### [facility] [address] [place] [address] Dr. Emmanuel Hillman HDL NORMAL > or = 60 mg/dl - LO W CARDIOVASCULAR RISK <40 mg/dl - HIGH CARDIOVASCULAR RISK Normal [facility] Comment on above: Performed By: #### L IPID, TSH #### [facility] [address] [place] [address] Dr. Emmanuel Hillman LDL CALC NORMAL SEE BELOW Normal [facility] Comment on above: Result Comment: <100 mg/dl OPTIMAL 100 - 129 mg/dl NEAR OR ABOVE OPTIMAL 130 - 159 mg/dl BORDERLINE HIGH 160 - 189 mg/dl HIGH >190 mg/dl VERY HIGH Performed By: #### L IPID, TSH #### [facility] [address] [place] [address] Dr. Emmanuel Hillman Triglyceride [Mass/Vol] 87 mg/dL Normal <=150 [facility] Comment on above: Performed By: #### L IPID, TSH #### [facility] [address] [place] [address] Dr. Emmanuel Hillman VLDL CALC 17.4 mg/dL Normal [facility] Comment on above: Performed By: #### L IPID, TSH #### [facility] [address] [place] [address] Dr. Emmanuel Hillman TSHon 03-25-2022 TSH 3.614 uIU/mL Normal 0.358-3.740 [facility] Comment on above: Performed By: #### L IPID, TSH #### [facility] [address] [place] [address] Dr. Emmanuel Hillman TSH RANGE SEE BELOW Normal [facility] Comment on above: Result Comment: <0.3 4 UIU/ml HYPERTHYROID 0.34-5.60 UIU/ml EUTHYROID >5.60 UIU/ml HYPOTHYROID Performed By: #### L IPID, TSH #### [facility] [address] [place] [address] Dr. Emmanuel Hillman Provider Letter [facility] Provider Letter [facility] 11, 2021 SHAIKH VALENTE, [address] [place] [address] Re: CATHERINE SHEIKH Date of : 1960 Thank you for your referral of Catherine Sheikh who was seen on consultation for abdominal pain, Right upper quadrant pain and nausea with vomiting. I have enclosed my consultation note for your review. I will be happy to follow Catherine. Sincerely, Raymond Daavlos MD General Surgery Normal [facility] Ambulatory Clinical Summaryo n 10-09-2021 Ambulatory Clinical Summary {[id number]}CD:[id number] Normal [facility] Gastroenterology Office/Clin ic Noteon 08-19-2021 Gastroenterology Office/Clinic Note Chief Complaint f/u EGD/Colon HPI Staff This is a 60 year old female who presents today for a follow up to EGD and colonoscopy. History of Present Illness The patient or their guardian verbally consented to allow [facility] to record this visit. Catherine Sheikh [...] after patient consented to recording for virtual evidence specialist and provider reviewed before signing. ORALIA: Dona Ramires. Follow-up With When Contact (more content not included)... Normal [facility] Comment on above: Result Comment: Elec tronically Signed By: Dona Ramires R\.br\Date and Time Signed: 08/15/21 14:52 EDT\.br\Electronically Co-Signed By: Raman HENRY MD\.br\Date and Time Co-Signed: 08/19/21 09:50 EDT Reminderson 08-19-2021 Reminders - From: Raman HENRY MD To: [facility] - Clinical; Sent: 08/15/2021 13:23:07 EDT Show up: 08/15/2021 13:23:00 EDT Subject: Ambulatory Reminder repeat colonoscopy in 5 years Reminder/Recall Normal [facility] Coding Summary.on 07-12-2021 Coding Summary. [id number] Gh 0bWw+PGhlYWQ+XG3QKZBsZ 97blGYssT0UV7kVSJ6OPYB YCCKYPK2AXL0gpWK9RFdbN 2VybiAv TrcnwAQeZX07JZv8HLK0xY obCAirgN4avAHeL1u1ZuAr ET49oK30WLtjZIWyXbD8Um ZpbjsgbWFy Y7orDxQyiUEaTkg+PHRhYm xlIHdpZHRoPScxMDAlJyBz qAfpCO3lQo3zMYToJSPtmS xhcHNlOiBj u9znJFRnDWtiXE3lqLkeA0 DodDD5FBSeo5n8Ro03rIG+ JHElSBU8zYluKRuwf334Hx Zqu2gdZAC1 sLScVEmpKLB5O93aq3C9QF QsKYMfEDA0aUA9rF3npGlx glovG5DddLDvKhF6MMJ2kY TguO4hjIfa njxuxV1rBmz+P50APJ1OJM UADV9JVlc9U2LoKlqpsCC+ IA35ALDsNP61uCOwoZKlm3 jmaVa3UwPu SIFrQNV0lTnzSRmsr8HvYB GrP49jjYBcx4R6ODWcdSfa cXUiSpDfpGV0lW5lKKwssx dmr6dhdkru Xdaap7xwvn07aV54Y72hKU zlAVBjAOW0TPWtCPJotLtl bj8dkR4mNu0+FFzlq3ehu4 mpbYk8ZqSm ENHacmKcsEzeROF2s0QcGh 01Z0DowIkyd5HuZbz4zx96 iPGny7D9qGW8AInaAMBdyO 0uRVioGbT1 YIAgAaRxwW41uZLeUOabHb 6ucMvpdYqfXT9zMLGqsuji KGJbtQ9mIJIrlDCrdJiqLG 4wNTBpbjtm q016KiAgUOZ7FMPiuHHsL7 ConD1cYkShJIIwWPPgI1Km wCBfVXrkW287XNkfGkD1OC HhruEoE2Nf HCOrjXzdTmT7i1B2Iv7Ja7 UvszalOVJ4OJocXKI6UwK7 NlZcWcJ4T6UmHit5ZRTnaL blOJ5eP9Ka AFSbpszyabdunFK2ZSRqAS OzcL59wSPcOCghFn8lw8Q1 h825LKIeTRPcxF24Kz3ksN ogMTBwdCBU mD4txhqlr2gqzyhuXzGtDB GcVPp8XSq2SEVjuMtmTvOw JSE1PsT1JEB6gKJmzV3hwT riqbjkoN8d Oyc+G23imG7nGZP1FLZ0cl lnWAZaiwFbGD21WZ90A5Wa PjwvdGFibGU+PGRpdiBzdH zsPU5nMtRr r4pne2GxQDebJ8LsYDPbJB xvLep6KTBvZHR0mID9eF1v DGFuILytt7E7yPT3S7Uifd Lzsj0ic8qa WUOrSQviZ66ngOUdw8K3FO IczOW1HPFhzPvePpFceI30 Oyc+WGMakLukr9RgGonil8 xzz8pkeMi2 JrJiQAFyshLxfIhvHDT5b5 CyFe47M17qYGdqGJIoEWEk AKEkSLSqfTdvpd5cnP7xBf 8+PGNvbCB3 hJS1cT0bJFScEqW1TOctN0 05ObUrtQPgOgdws6lzo3zf nUn4GvBhVLScnsCkoZdyPR E8z8ZhQi62 D44tWJrwRAUxBYSxGUQpVE MdyYrcdg3qgY9sQb9+PC9j r9njvf43kY50zDS+PHRkIH V6nGvwFYbr YGJvuL7nPElbZlZ2VBCzHq XsoP99qFFyLFdgXy2xnEhg bTcnLO7pMOFyblkak432Dw Usq3ujFJTl jPHqJXymJHF3T37vx3K8JN VgBMFmSGA3bBK0vT7gzSkb bjogbGVmdDsgdmVydGljYW nfATihZ358 IHRvcDsnPlBhdGllbnQgTm ZwVIn6E8RrUnz3ANHcxHtp OA9ifSXrTWlaCs8ihEwqyS euVL1fVTMh fogyu227GuBuv2rlDDKscA LuJPirQJS7G62ey9G1ZTMx RLKgHYL7bJI4kW6tsSthhk ogbGVmdDsg oaHlcTbnJKntIWjaK633YS RvcDsnPkJpcnRoIERhdGU6 VX16KD54kRXxv2T4iPF0B9 BhZGRpbmct wxmtlWJ4STVtMQZpmU20Ps 2uyTcrAf6pHPYkEFB9CATa bJCsG9DjmJ4pCrXiTEKiKY EzX6PzdHSw RQhsP836JLstCtF5XNWhqu PdX2FkIUAcoEydOjE2i7T5 Fo5TQ3B8OX42DI65aAGwb2 A6tEU4M4Yx GKReqrmmknddzBU0NFVnJY GuaC80Bm2coEhxUz3sJKKj YXA4LQVhnVBeB8JgyJ7jAm AjMDAwMDAw M8MwtTBiWZyhY046CCgkBa V7POPtfaOsL6NhGANfcRjj FpZ0r6G3Qz1JLWt1WH60JA 46tHLjx8I6 jXM7C9GyNXDtlnibhiibgI G6BKUjAOAcvA98Wl6vpBxu Rl4dILUtPDA6BMQkrGBqG9 ZarR2xLhEj TKCpKEFrL3TjgRYuYNsiI7 51DGaiEhI1HGNubzCeC9Mx YTPzzMjkYaX6f1B8Xi2TKE ExRL02ETJ7 qSM4RU01IQ98Q1WzHczqnL FibGU+PHRhYmxlIHdpZHRo PKdtQEAcDoOuvFejRI9lCs 9yZGVyLWNv nYchqPOdSuKye1vuNPRaNI miGU0dpImjJ2GqbIG1AFVn r7i9Sl86Q22vI3MccJQ+PG FcvYZ4tXS8 gL0lBnPyLxK1CDcvQ542Ws TyaDDzWpqss9cwh4bliNh3 NtB8VYRwlmBaqJsiXIK0c0 CoVz80Z15r IHdpZHRoPSIxNSUiIHZhbG ilml3sxP9hEi6+PGNvbCB3 lPJ2xV5wOaOgDnP9QNacW6 49InRvcCIv Bxqin0syc2pzgCo7RgWiXO MyykIbbBwzBJR0k9XiJo87 H5WivKpfm3SdCsm0pb67aR Ytb2T2mMG9 C7HjUUJuknxacUZpeXrmNN 6eSAPxeiwePJHagW8bPOWq U5h5HcWeWbY8UAjsA4Wabc I9GFIvoKNq HEofJEF5W50jk7L5NZWaCE TcWNT9zPE1xE7drKbjlgoa bGVmdDsgdmVydGljYWwtYW anV444SRRg jFkdCPKeeP1eZGSweADfrN yaCM0mCGLswoxxYdVWB5ms AJ5DLtJQTV99IF95gACfa6 L5rNP7D9Hq USLmjserpfqvjVY0DHMhBT WchP50yKNgVOgwCc7ya6G9 j421ZBMwTFAuqU81Qt2kfC ogMTBwdCBU jC4yusldm0jbqzcoWsMzKT CwJGk3SFn7EUGylAmhFrHj WMS9AwF1MTT3lMDrhY4zoS appufbvD8m Oyc+KTSkHYPfCMz6EYpwiU Q+MHClIKE0vQlpDPvuLDGe zJ6bTTGpF8r5VyGzBiY1XH idS9UxLYNl qlvyWq08cK4bBkZyCiR3VS egX0JksuA9PUJdxXMfWYjy IRZ5H83ts3J8EWNzANJvMW H9nPJ5tI6l bGlnbjogbGVmdDsgdmVydG woTFsnUMvvV204DFRapPwo NdBrAResAABgYV01RX08mZ Wqu7S5pNK3 M9GbEKMiucsxyrolnKL4BZ HvTDRzoP10iABtXLiwCc2l a5H2o514SSWbAYSrfM52Vn 9udDogMTBw tYDIpE9clmkux0hiyflvBj GpGKBcNMu6WAv9GAGjrTbq TxMnUTS1EiG6EAO2iIYybM 1hbGlnbjog mN1xZnz+RgIsUMowQX49GM 30rDHhy4I1wIL5A6QqXKUh pzahehbruYJ2YJWpSSCzkI 47cGFkZGlu Qw5dd6W0w355PPXyNVCxmB 30Di4fjGpaKLEnwDQAiP3n shvza2pcqnnbBvQoBJIoCH b4FIc8GROp lTfyOfJvZUU9VrN5GMZ3pI TjaN9teYveekurfV6kRgn+ V0M1yCD9dATetYrtoZQ+PC 41ce17X8Ps RcmeWcq7TBLuSDL6hOO7bO 7tCXAwCHytx3C5zYK8I2Pn eiEdlr9dj5fnBPDoIFykI8 6gxFCqc9N9 GYLneMA9VRTknFcvHjPhiO 93Oyc+LVKneBqgi6OhZesy j4qsv2igmVk9LgOgBSXxll FsaWduPSJ0 s6KfSm75H31tIWbiBHCvTG CiPBEiXHPhhLppjn9ksP2m Ii8+BIToiFS4oKX9aV8jHy OoTzG7MFzs S395SpKmdNPaHyzok4oru7 xqlMp1GlGbIYMwrnBgpWzx IOV8f9NbBy98M1CebNuuy6 FrWcf3rf86 oBGbz5U8lCM8I6AlXTPtym eywSAgfAhgCH8lYHBvwykr WCIxtZ4pBGDmB3w5WrLpSe G1TIwzA6Mi ryE8OYZmcNUmHCWvcWHPoV 2njlhwg0dkrbwkFqYrHZNn HXe8OPz6BPNuiUcgJwVcTI K2McX0GZO9 dPUtiI9tgVhuadevzY0pYa c+GFf0s8nmlEZtSC5djFP1 VY37NW65nYHnq3H5tYT9M5 BhZGRpbmct mnkmoJH5RGKnIPJcmP54Uf 3veZzdBa2bJSOsHKJ2ATSj oFPuV5CivM1uUsKmGCVrVR SqA7GqeEQm VSncR319LZeoTsQ5WYAfsl EyI4XdPHFdxBqyWeT9s4U8 Fg5QDK61IO83LO23wPOlk1 T6rDW8W6Ws PRFytjussfkinYR2GOXrOJ YwgA19Ba4klEsuVz5zFHXx YLW9LHXnkMKlX4IzxZ5xMh AjMDAwMDAw N2NajHIzZHhnM826CRvhPt H0GKWoqzPmB5SbGYZkcTcs PeY5g1R5Rl6ZFr81UC87PR 73aLTqf5M4 mBN4T8NhJMHepuregewucE O8GSRgHFDexP34Fe5vxTjb Fr7wXZMqKZR1JNOzbPZtQ8 XacP7pZuLj YEKtWDFwN1KxyHIgREbvH8 19GKcnTyH1TMMezbLmL0Le EXUwzTbbKtM7w7P6Dw9CDB sgagk6L9Wh PjwvdHI+SO60MCGrXC11oD VdpJMgo7efaSm1DjAlVKKd SFC1pUmoDHrsh3JhBAUpV4 3tyIGfn4W2 IGNv (more content not included)... Normal [facility] US Abdomen, Limitedon 2020 US Abdomen, [...] Singh MD Transcribed by: VIRGIL Technologist: CARRIE [facility] Consent for Treatmenton 06-03 Consent for Treatment [id number]:[id number] Normal [facility] IntraOperative Documentson 0 06-25-2021 IntraOperative Documents [id number]#1. 00CD:127 [facility] Postoperative Documentson Postoperative Documents [id number]#1.0 0CD:127 [facility] Coding Summary.on 06-17-2021 Coding Summary. CD:[id number] Gh 0bWw+PGhlYWQ+GC4SGWSyM 39eyJMyqQ8VM9mXBK6KUOK IUVBLUL5NVW5igLP1XZwpD 2VybiAv TtumwYKwBM01OGt5RZN1gE jnDLxqsJ8swOGvP8s5QkHz BT46dI82QQrxGPIhPzN0Ab ZpbjsgbWFy T4riXzJjaOMsMbe+PHRhYm xlIHdpZHRoPScxMDAlJyBz iYriXZ6qIb0bYNSaWDDinZ xhcHNlOiBj y6dpFGOaENcmDA9msEkoZ8 AwwPG3JSHff4q9Gy42dUH+ HQFtUNK4rSrjZGihl657Ke Sck2iqEDQ1 cXIiSOrbNLI7H46ol6U3JN SsWKFdNQK1mBQ7aX7liOno qiwkW0XegTEySeF0NYB1oI EohL6ebXss mvnqlV4nPou+D42DYY4XLR OMZE8UAal5G2SjJqzuwDK+ DN46MGAcDC31mDNbhQEiu6 dhcVh1DlUk RQXwGSX0xDykZAmdk9JvGE ScU31kwZSlp1T6LTRhbQvj wMMjHlMfwNA7lE2iDEclza ixe3mhejqh Zuomz3scuo46yX68V15nPQ liIEAkZDF7ZNBiVAMwgJrd li6ilB9zZz1+WGtak2xuv2 edaSl5OcJi ULVhwqXihDymXYE7s9XsCx 96Z7NtqOxss0GgPox3xp75 cBPay7S7aYT0JJvjASGjgH 5rBMksBpR4 AKLuFkFemJ20aJNxCMldHg 1aoHfwqEnvKX4bVETmnzgd CBJtbX0bYJRglDIhlXvdPY 4wNTBpbjtm s390EpTfITI2LUDimLRsY9 NolR2oRnOePIRiIBIpL2Po qTMcPZxwS968KRgpIsA9LU ZxpyTdQ2Ma TGCldSrxNyE0h5Y2Cj6Nm4 VponkbQJY5CIlwHBQ8QhS6 IgSnVdH8L6BkHmv5JMSoaT ycWA4aY3Jd UEHbsgsezynttXR0ZEOiOV MivG52iSHoYQqmVg8lr7S4 u835ISPjZMMqkG86Rk6fhE ogMTBwdCBU eJ7fzrccs5vnmqwaAePlLX XxPHf2BBn5VFMisRbzJmYt DUC0XqH6POG9fUXmgT4onH mnplsnpW7o Oyc+W40nbF6eNZZ0IFG3cn atLWZrqpWrQN74RL51E0Mn PjwvdGFibGU+PGRpdiBzdH yoES5wHxHe i9fqr3UmJNcaU4IrCBSoGB yeBul4OPPrJVJ9vWR3oJ5u UYCrBQeyt4V3fUW7U4Pnec Xiow6qa0pl ZJPmBVtiI27wzJGqh7B8IW SxuCF1KAEpuSqqLfMgdD12 Oyc+ZLJpwRyib8XqLinkv7 aei3gmxLd0 ErNxZTFjvpXbzEibGTH0r4 LrXr25M28rRCorIIVcLUIc OTFkWZOswHcisn9gaH3mBx 8+PGNvbCB3 oQX6pL3tLUWmHoV9IFdtT2 69CyQrkRWeAdgph6hbw7zr aQr8BeMcQPEcytHcrSqxZP Q7a7KmGm95 B04uYKwuTPYfRILfUJSfXJ NizNytjs6lgW1rDk8+PC9j a0yfth21fU52yPT+PHRkIH M5sVymUUkc ZFUcxL2gDEebXvK0RORuHs SfpK74xCRxZXhjPu9zgQud dBubLY8jDXMwkhvyi672Mz Rzq4peMJIu yRHaQLbuXZY2X19pj6C8IO UpJJItUPQ6uDX5hF9ouVdw bjogbGVmdDsgdmVydGljYW cyFHevY185 IHRvcDsnPlBhdGllbnQgTm FqFQn0B6HmZor7XEIhmDts OR8gnITaZJdsAw0zdWywdI elFK9qDKLm kmmum093XwEqp5dhLWAwfO ZqQOgeIDH1Y82tg7M5SMWx QKUqKAJ6yJY1aD0enQilji ogbGVmdDsg viWjmFbfLWtrQKlgX584HW RvcDsnPkJpcnRoIERhdGU6 YG96MQ16nSKnt1N8lYU0O0 BhZGRpbmct mebtkIB3LCRoQGJocT69Jf 5hsPobIq4iEPTbRDB1JQIv gNHpI5MeiS7zKeAaJXIpQZ KmJ8XcvQZk HWleM555VHsdZuK5PLPhpv OoY2OoYBMeoEpnPvA9y7J2 Zz9ID8C9WI69HH43tUZhw9 D0zLQ1I0Ik YQXwahxooigtkRF2KVGkFC IzpK46Ey4pfUdhJc7cVUSb GTK5BDEsgJCxJ4UgqN2rIz AjMDAwMDAw K7IkuJWsPHtpP483TXbfZx H3BHEmxyFwC5ZxURDjxRoj GfF1s9H0Vu6ACNs5LV20AP 35jJAum9S9 pKU6B2YlNPRwphajbbksbO R1ZTRwXDEqvF53Bj3lmCzb Sa1gMISkYZK5MKJihIQzD6 CtgQ7aXjYu KCKcIJCiB5MebJPpJGmmB9 02RNzdWqC0ZIZeztJqD3Vq RTTgzOaeCkZ7n5W3Tl2LKK CzZQ03EKL7 hNH8IX06GX66M1GdExnngY FibGU+PHRhYmxlIHdpZHRo IWwpNIKrRpHnsIqmRL6jFk 9yZGVyLWNv vKxkxTKfGyJca2eoDPKqQN cwMJ5euNypE9FlsFU6JGIb o0q3Yc71D99fP6CauVM+PG JmsWY7vKN6 bT9hUmFzXuM6BHpyU932Nq JedPNhHckag9bfv4zesVz4 CbE1VFHopcXotQvbGPA2z2 GfIj13B07s IHdpZHRoPSIxNSUiIHZhbG ppan8bkN9nVb1+PGNvbCB3 wWL7rA3lEjRgAmD0EUiqT3 49InRvcCIv Kpvjz3zig0qtyIf6SqGlUK XaqrOywQftDBM7t9SaAy20 D5HwiTxrl2FjUqm3tg14qV Lzk2J8yQG2 C7EpMKTssbmpoPBysBlcQA 7uDFMdkeloRTKhdU7vNBDi N6e5MgXoTdT9JHtqW8Gwaw L0FSMygGMi DUpiCEW8P83ra4V5IVNuIM VwMNA5tSP5xN7mgXcozwjk bGVmdDsgdmVydGljYWwtYW ftH352LEPa mExyEJOonA2wKTIedTOnfU lhGP9fZOUaptwcRwPGB1mz AN3PIyREMZ51BY40eRCsd0 K8rMZ3J5Pm MZAqiowmfmpfuRA4JFKfVV QazA58aQFiHOjtHw6hh7F3 k649ZDMyZTGbtI08Ds3xkW ogMTBwdCBU yE0ndcgzk6aodwiuYnVcEN HbNNj2AJz4DDAhhJhaPdDl NHQ2CeQ4UKE1mKAnvK1pqO ehfpzafO8q Oyc+LWHdESDkFTn5AYhpkL Q+AZSrFOG0mMgmPEczXTJg cT5zJDLhK0b5VaLlSyH6CV hiG0TyCQYn mxhfJx25tE0aClQqOcZ7EK dbB1YbzoD0FPBqePRpAXcy GCO0U43bj2C7RQLtCTWfLM H8tYO2qZ1n bGlnbjogbGVmdDsgdmVydG abQOiiYNikD762BXRttLhi XlKqOWuiOVQcJK40KA87jF Eqa2X0pPR7 U5OrZBLzbskvcfholWB9TQ YqEENitL30vUMqZYhtZe4s y0F4a075ZMAyEOIgjD43Yf 9udDogMTBw oOMRcU9cmllcp9ynnhjdAf YrLSOkSZs1WFn7RCItlHzz QmAmREO6KhC6SFE7vBFpaU 1hbGlnbjog aA1nZps+CoWpSRzaSY01TF 41iULzg0M9rID7H1UdBLBc gvvaejmnsSC5ZMSfBPZxxW 47cGFkZGlu Zw6yf2J2x363XGVxQOOxaP 86Tv7ggZxlVQWsnXFWfI4n taulr5rzynoiTjPcBBWxVH u7YZd6FMQu xBivJaIdHAF6JuV9AXL9kM FgyI2hbLkbqomvyO0rKnn+ C0O2zGU4rNPshTyebPJ+PC 50dj64M8Ox QeytUsf4ICEsRFB2zNZ0uJ 4gNCCzWQsqm1K2oHE5J5Yu buEaom9vh7blNTOxJIsfD5 0hqMIhp2A8 ORDphJD0GOBxuShnZjFpxY 93Oyc+FNPzuPwji5QpWurr n1zgy4syqKj1IoOzAVBjqq FsaWduPSJ0 m2XiOd15R88hCKwgHYIjBR GcEUUtPJNtuOygle6gbL4a Ii8+CALfaLH9xSP6aW7pYe OuJkQ4MItj I691ZaPltQLeWvysg3msj1 mzzOv3ZiBuBWFmbyFgcUhk LVF8f8WvQa61V4TchQrlt2 PrVtz7ia58 cAQrj2Y0eBE5H9BzBJCnxw swiEMfaFuhPG0gSXOebxng LWApbU8fSIXbC8o2BgTsLp Q9WOquA8Lx mxD6SKGxzNCrPGDwoUGJkN 9yelxrk0xrjxnuEuSrJGSl VHf1JTl2YTWomLvhZhRjWM P1WfA2WNC3 mRBaoS4uvMmlvddvsR4cKf c+RJx4a9azlDNjCA1quWQ7 BG90OS70hMYpb1V8bGX7L9 BhZGRpbmct laidnCG7PZZaVXJepF98Nd 4ilPatVk8dBOQjVSE9JJSn lZCmU1RetW8zTcMbBDLqTJ XfN9JscYRc IHdxK737YYgvIyO3YJScko CjK6NlXUNgsMmsCqG4e4T7 Jo6UHS50WS68TL76yWLss7 T3hCO4M7Fm GGOyuulvcoxqiSQ0GBTfBO OrjH93Cs9oaWfcMr0uYKUb GZV4AXLiqGQnR7VqlJ0lZh AjMDAwMDAw G0KnpSSlZDjdL804GQvhAw O3KBRqbuLeY3RaRXOvxKru LwQ3q8Q5Gk8ZYa41DB02WX 74iEZuy5C8 sGT4K3RwLDTlefusglhkcK G8TUTwCUMlnU24Yw5vpImn Wi1lRMIhKRE6ZVBlvJXtA1 FpgE7mWsEb RCOoVCQkU7YkmZNuFIjtE0 04YQpoIcZ5UADihpWrN5Ke NDQulCshFlB2s2M6Fn5OZB zzssk9A3Mv PjwvdHI+VO69QMTsKH30rY LkbUCfb0brhEm9JpPsRXXu GHJ8qCxlBOfqp5DeOELfG3 4gcIMdj2L4 IGNv (more content not included)... Normal [facility] Main OR Intraoperative Recor don 06-17-2021 Main OR Intraoperative Record IntraOp Document Type FT Summary Primary Physician: Raman HENRY MD Finalized Date/Time: 06/17/21 09:30:46 Pt. Name: CATHERINE SHEIKH /Sex: 1960 Female Med Rec #: [id number] Physician: Raman HENRY MD Financial #: [id number] Pt. Type: O Room/Bed: / Admit/Disch: 06/12/21 [...] Kay RN, Mikayla Toth Role Performed Anesthesiologist Voip Engineer - Primary Scrub - Primary Blow Molder Time In 06/12/21 12:49:00 06/12/21 12:49:00 06/12/21 12:49:00 Time Out 06/12/21 13:10:00 06/12/21 13:10:00 06/12/21 13:10:00 Procedure EGD AND COLONOSCOPY(.) EGD AND COLONOSCOPY(.) EGD AND COLONOSCOPY(.) Comments DR. DUNBAR SUPERVISING Last Modified By: Ita Chlidress RN, RN, Ita Queen RN 06/12/21 14:49:23 06/12/21 [...] and tissue Entry 1 Skin Integrity Intact, [place], Warm, and Skin Abnormality No Dry Outcomes [...] of positioning (more content not included)... Normal [facility] Consenton 06-13-2021 Consent [id number]#1.0 0CD:127 Normal [facility] Discharge Instructionson Discharge Instructions [id number]#1.0 0CD:127 Normal [facility] IntraOperative Documentson 0 06-13-2021 IntraOperative Documents [id number]#1.0 0CD:127 [facility] IntraOperative Documents [id number]#1.0 0CD:127 [facility] CBC w/Indiceson 06-12-2021 Erythrocyte distribution width (RBC) [Ratio] 15.6 % High 10.9-14.2 [facility] Comment on above: Performed By: #### 2 517630, 40866756, 3653810, 1594251 ####[place] [address] [place] [id number] Hematocrit (Bld) [Volume fraction] 36.8 % Normal 34.0-46.0 [facility] Comment on above: Performed By: #### 2 474349, 48224389, 3279763, 5414364 ####[place] [address] Hemoglobin (Bld) [Mass/Vol] 12.5 g/dL Normal 12.0-16.0 [facility] Comment on above: Performed By: #### 2 237341, 99556619, 0704629, 1568930 ####[place] [address] MCH (RBC) [Entitic mass] 28.6 pg Normal 27.0-34.0 [facility] Comment on above: Performed By: #### 2 929835, 08728073, 1485095, 9925315 ####[address] [address] MCHC (RBC) [Mass/Vol] 33.8 g/dL Normal 31.4-36.0 [facility] Comment on above: Performed By: #### 2 814589, 58362634, 8456297, 9331320 ####[place] [address] MCV (RBC) [Entitic vol] 84.5 fL Normal 80.0-100.0 [facility] Comment on above: Performed By: #### 2 100430, 73483423, 0621076, 2834077 ####[address] [address] Platelet mean volume (Bld) [Entitic vol] 8.0 fL Normal 6.4-10.8 [facility] Comment on above: Performed By: #### 2 396051, 57889217, 2991488, 7302129 ####[facility] [place] [address] Platelets (Bld) [#/Vol] 186.0 E9/L Normal 150.0-500.0 [facility] Comment on above: Performed By: #### 2 491297, 13119895, 9763962, 3583479 ####[address] [address] RBC (Bld) [#/Vol] 4.4 E12/L Normal 4.3-5.9 [facility] Comment on above: Performed By: #### 2 714612, 16603359, 7824087, 4004818 ####[address] [address] WBC corrected for nucl RBC Auto (Bld) [#/Vol] 5.7 E9/L Normal 4.0-11.0 [facility] Comment on above: Performed By: #### 2 692798, 74084682, 7881961, 1635464 ####[address] [address] CMPon 06-12-2021 Albumin [Mass/Vol] 3.9 g/dL Normal 3.3-5.0 [facility] Comment on above: Performed By: #### 2 505538, 74008638, 7692632, 4671371 ####[place] [address] [place] [address] Albumin/Globulin (S) [Mass conc ratio] 1.2 Normal 1.1-2.2 [facility] Comment on above: Performed By: #### 2 025655, 41273044, 4117031, 0114585 ####[place] [address] [place] [address] ALP [Catalytic activity/Vol] 56 Int._Unit/L Normal 21-98 [facility] Comment on above: Performed By: #### 2 149947, 84675019, 0316039, 1880081 ####[address] [address] ALT No additional P-5'-P [Catalytic activity/Vol] 23 Int._Unit/L Normal 6-46 [facility] Comment on above: Performed By: #### 2 648931, 16436416, 1141663, 3869432 ####[facility] [address] [place] [address] Anion gap [Moles/Vol] 13 mmol/L Normal 6-16 [facility] Comment on above: Performed By: #### 2 720524, 61509321, 7047238, 8717315 ####[facility] [address] [place] [address] AST [Catalytic activity/Vol] 18 Int._Unit/L Normal 5-43 [facility] Comment on above: Performed By: #### 2 582886, 30103514, 5040772, 4440243 ####[facility] [address] [place] [address] Bilirubin [Mass/Vol] 0.6 mg/dL Normal 0.0-1.1 [facility] Comment on above: Performed By: #### 2 987135, 94334802, 6264702, 4301541 ####[facility] [address] [place] [address] Calcium [Mass/Vol] 9.0 mg/dL Normal 8.9-11.1 [facility] Comment on above: Performed By: #### 2 487110, 29168192, 5418017, 8122861 ####[facility] [address] [place] [address] Chloride [Moles/Vol] 111 mmol/L Normal 101-111 [facility] Comment on above: Performed By: #### 2 158941, 65645366, 2256306, 4292795 ####[facility] [address] [place] [address] CO2 [Moles/Vol] 25 mmol/L Normal 21-31 [facility] Comment on above: Performed By: #### 2 189761, 20147610, 0838533, 3222376 ####[facility] [address] [place] [address] Creatinine [Mass/Vol] 0.7 mg/dL Normal 0.5-1.3 [facility] Comment on above: Performed By: #### 2 979937, 50186700, 1180013, 7565794 ####[facility] [address] [place] [address] Globulin (S) [Mass/Vol] 3.4 g/dL Normal 1.4-4.0 [facility] Comment on above: Performed By: #### 2 146288, 81649332, 4929845, 0681344 ####[facility] [address] [place] [address] Glucose [Mass/Vol] 99 mg/dL Normal 55-199 [facility] Comment on above: Result Comment: If t his glucose result represents a fasting glucose, interpretation should refer to the following reference range: 55-99 mg/dL Performed By: #### 2 967203, 91769173, 8435091, 2123183 ####[facility] [address] [place] [address] Potassium [Moles/Vol] 3.6 mmol/L Normal 3.5-5.3 [facility] Comment on above: Performed By: #### 2 082171, 57004159, 6177118, 0664024 ####[facility] [address] [place] [address] Protein [Mass/Vol] 7.3 g/dL Normal 6.0-7.8 [facility] Comment on above: Performed By: #### 2 074793, 75206478, 2050102, 0431517 ####[facility] [address] [place] [address] Sodium [Moles/Vol] 145 mmol/L Normal 135-145 [facility] Comment on above: Performed By: #### 2 169829, 88778598, 1233909, 6030766 ####[facility] [address] [place] [address] Urea nitrogen [Mass/Vol] 10 mg/dL Normal 5-21 [facility] Comment on above: Performed By: #### 2 418216, 85369370, 0421495, 7009311 ####[facility] [address] [place] [address] Urea nitrogen/Creatinine [Mass ratio] 14 No Units Normal 10-20 [facility] Comment on above: Performed By: #### 2 275452, 27658355, 8516349, 1298422 ####[facility] [address] [place] [address] Consent for Treatmenton 06-02 Consent for Treatment [id number]#1.0 0CD:127 Normal [facility] Endoscopic Procedure Report - Otheron 06-12-2021 Endoscopic [...] Small nonbleeding internal hemorrhoids Images Procedure images: [email or web address]_[id number]_[email or web address]_[id number]__ [id number] Rec1_hd_video__ [id number].jpg . Post-Procedure Complications: none. [...] medications. Return to activities:: After 24 hours. [facility] Comment on above: Result Comment: Elec tronically Signed By: Raman HENRY MD\.br\Date and Time Signed: 06/12/21 13:09 EDT Other Comment: Darlin diaz Attachment - attachment storage system not supported [id number] Can be viewed in source systemMissing Attachment - attachment storage system not supported [id number] Can be viewed in source system Endoscopic [...] Gallbladder ultrasound, CBC, CMP and lipase Normal [facility] Comment on above: Result Comment: Elec tronically Signed By: Raman HENRY MD\.br\Date and Time Signed: 06/12/21 13:08 EDT Other Comment: Darlin diaz Attachment - attachment storage system not supported [id number] Can be viewed in source systemMissing Attachment - attachment storage system not supported [id number] Can be viewed in source systemMissing Attachment - attachment storage system not supported [id number] Can be viewed in source systemMissing Attachment - attachment storage system not supported [id number] Can be viewed in source system Inpatient Patient Summaryon 06-12-2021 Inpatient Patient Summary [place] [address] [facility] Clinical Discharge Instructions PERSON INFORMATION Name: [...] Capsules By Mouth every day. Comment: Normal [facility] Lipase Levelon 06-12-2021 Lipase [Catalytic activity/Vol] 23 U/L Normal 13-58 [facility] Comment on above: Performed By: #### 2 412737, 52724325, 5410782, 6541839 ####[facility] [address] [place] [address] Main OR PACU I Recordon 06-02 Main OR PACU I Record PACU Phase I Docum ent Type FT Summary Primary Physician: Raman HENRY MD Finalized Date/Time: 06/12/21 14:39:20 Pt. Name: CATHERINE SHEIKH/Sex: 1960 Female Med Rec #: [id number] Physician: Raman HENRY MD Financial #: [id number] Pt. Type: O Room/Bed: / Admit/Disch: 06/12/21 [...] Dolores De Leon RN 06/12/21 14:39 Normal [facility] Main OR Preoperative Recordo n 06-12-2021 Main OR Preoperative Record Holding Area Document Type FT Summary Primary Physician: Raman HENRY MD Finalized Date/Time: 06/12/21 11:42:13 Pt. Name: CATHERINE SHEIKH/Sex: 1960 Female Med Rec #: [id number] Physician: Raman HENRY MD Financial #: [id number] Pt. Type: O Room/Bed: / Admit/Disch: 06/12/21 [...] By: Rosie Bravo RN 06/12/21 11:42 Normal [facility] Monitor Recordon 06-12-2021 Monitor Record [id number]#1. 00CD:127 Normal [facility] Outpatient Surgery Discharge Instructionon 06-12-2021 Outpatient Surgery Discharge Instruction [address] [address] Patient Discharge Instructions PERSON INFORMATION Name: CATHERINE SHEIKH Date of : 1960 Current Date: 06/12/2021 13:10:48 PHYSICIANS Admitting Physician: Raman HENRY MD Discharge Diagnosis: Esophageal inlet patch CATHERINE SHEIKH [...] THE NEAREST EMERGENCY ROOM OR CALL 911 TRACIE Funes NANCY, have received the attached patient education materials/instructions and have verbalized understanding: May we do a follow up call? Yes No I was present when discharge instructions were given Patient Signature Date Clinican/Nurse Signature ___ Date Follow up: Pharmacy Information: Adonay Haddad- You may receive a survey from [employer] asking you to rate your care experience. Your feedback is important and will help us understand what we do well and how we can improve the quality of care we provide to you, your loved ones and our community. It?s an honor to serve you. Thank you for choosing [facility] HERE ARE THE MEDICATION CHANGES THAT OCCURRED [...] Mouth every day. PATIENT EDUCATION INFORMATION Instructions: [facility] Patient Education - Texton 0 06-12-2021 Patient Education - Text [facility] Progress Note-Physicianon Progress Note-Physician Patient: CATHERINE SHEIKH [...] (JUN 12 06:00) Height 166 cm (JUN 12:) BMI 36.73 (JUN 12 06:) Pain assessment: Pain Assessment 06/12/2021 13:11 EDT Pain Symptoms Self Report No, able to self report . Respiratory: Adequate air exchange with alevism of preoperative function.. Cardiovascular: Cardiovascular function is stable and has returned to preoperative levels.. Neurologic: Pt has returned to preoperative baseline.. Review / Management Condition: Stable. Assessment Anesthetic outcome No anesthetic complications noted. Plan Transfer/ Discharge: Patient can be discharged from PACU when criteria met. Condition good. Normal [facility] Comment on above: Result Comment: Elec [...] 1 EA, Refill(s) 0, PER PHYSICIAN INSTRUCTIONS, [facility], 166, cm, 04/23/21 9:16:00 [...] data available Respiratory: Adequate air exchange with alevism of preoperative function.. Cardiovascular: Cardiovascular function is stable and has returned to preoperative levels.. Neurologic: Pt has returned to preoperative baseline.. Review / Management Condition: Stable. Assessment Anesthetic outcome No anesthetic complications noted. Plan Transfer/ Discharge: Patient can be discharged from PACU when criteria met. Condition good. Normal [facility] Comment on above: Result Comment: Elec tronically Signed By: Albert Dunbar JR, DO eGFRon 06-12-2021 GFR/1.73 sq M.predicted among blacks MDRD (S/P/Bld) [Vol rate/Area] mL/min/{1.73_m2} Normal >=59 [facility] Comment on above: Order Comment: Order added by Discern Expert. Result Comment: eGFR is race adjusted. AA=. Performed By: #### 2 735730, 48750802, 0518811, 0167907 ####[facility] [address] [place] [address] GFR/1.73 sq M.predicted among non-blacks MDRD (S/P/Bld) [Vol rate/Area] mL/min/{1.73_m2} Normal >=59 [facility] Comment on above: Order Comment: Order added by Discern Expert. Result Comment: [employer] Loan Collections Supervisor precious kidney disease could be indicated at eGFR's of less than 60 mL/min/1.73m2. Kidney failure is indicated at less than 15 mL/min/1.73m2. Performed By: #### 2 816232, 15990872, 0681426, 7924507 ####[facility] [address] [place] [address] Progress Note-Physicianon Progress Note-Physician Patient: CATHERINE SHEIKH [...] 1 EA, Refill(s) 0, PER PHYSICIAN INSTRUCTIONS, [facility], 166, cm, 04/23/21 9:16:00 [...] review: No qualifying data available . Plan [place] [employer] (ASA) physical status classification: Class II. Anesthetic Preoperative Plan Anesthesia: Monitored anesthesia care and general anesthesia if required.. Anesthetic plan, risks, benefits, and alternatives discussed with the patient and/or family. Pt. and/or family present and agree to proceed as planned.. Discussed the importance of abstaining from tobacco products, and offered counseling if desired.. Normal [facility] Comment on above: Result Comment: Elec tronically Signed By: Albert Dunbar JR, DO.wes\Date and Time Signed: 06/11/21 14:42 EDT Vital Signs Date Time Vital Sign Value Performing Clinician Faci eday 11-30-2024 13:01-0500 Body height 165.1 cm Farnaz Turpin CASH REGISTER OPERATOR Work Phone: [facility] 11-30-2024 13:01-0500 Body mass index (BMI) [Ratio] 36.01 kg/m2 Farnaz Turpin CASH REGISTER OPERATOR Work Phone: [facility] 11-30-2024 13:01-0500 Body temperature 97.2 [degF] Farnaz Turpin CASH REGISTER OPERATOR Work Phone: [facility] 11-30-2024 13:01-0500 Body weight 98.16 kg Farnaz Turpin CASH REGISTER OPERATOR Work Phone: [facility] 11-30-2024 13:01-0500 Diastolic blood pressure 68 mm[Hg] Farnaz Turpin CASH REGISTER OPERATOR Work Phone: [facility] 11-30-2024 13:01-0500 Heart rate 108 /min Farnaz Turpin CASH REGISTER OPERATOR Work Phone: [facility] 11-30-2024 13:01-0500 Respiratory rate 16 /min Farnaz Turpin CASH REGISTER OPERATOR Work Phone: [facility] 11-30-2024 13:01-0500 SaO2% (BldA) [Mass fraction] 95 % Farnaz Turpin CASH REGISTER OPERATOR Work Phone: [facility] 11-30-2024 13:01-0500 Systolic blood pressure 140 mm[Hg] Farnaz Turpin CASH REGISTER OPERATOR Work Phone: [facility] 12-27-2023 12:30-0500 Body height 165.1 cm [facility] 12-27-2023 12:30-0500 Body mass index (BMI) [Ratio] 36.3 kg/m2 [facility] 12-27-2023 12:30-0500 Body temperature 98.2 [degF] [facility] 12-27-2023 12:30-0500 Body weight 99.1 kg [facility] 12-27-2023 12:30-0500 Heart rate 74 /min [facility] 12-27-2023 12:30-0500 Respiratory rate 18 /min [facility] 12-27-2023 12:30-0500 SaO2% (BldA) [Mass fraction] 97 % [facility] Encounters Encounter Date Encounter Type Care Provider Facility Start: 11-30-2024 End: 11-30-2024 Bamboo flowsheet Farnaz Olverazpatrick CASH REGISTER OPERATOR Work Phone: [facility] Start: 11-30-2024 End: 11-30-2024 Bamboo flowsheet Farnaz Olverazpatrick CASH REGISTER OPERATOR Work Phone: [facility] Start: 11-30-2024 End: 11-30-2024 Office outpatient visit 15 minutes Farnaz Trevinotrick CASH REGISTER OPERATOR Work Phone: [facility] Comment on above: Other hyperlipidemia (CMS/HCC) (Primary Dx); Viral upper respiratory tract infection; Encounter for screening mammogram for malignant neoplasm of breast; Gastroesophageal reflux disease without esophagitis Start: 11-30-2024 End: 11-30-2024 ambulatory FARNAZ OLVERAZPATRICK Not Available Start: 11-28-2024 End: 11-28-2024 Refill Farnaz Maopatrick CASH REGISTER OPERATOR Work Phone: [facility] Comment on above: Other specified hypo thyroidism (CMS/HCC) Hyperlipidemia, unsp ecified hyperlipidemia type (CMS/HCC) Start: 05-17-2024 Patient encounter status Anajaiden OlveraTurpin CASH REGISTER OPERATOR Work Phone: [facility] Start: 05-17-2024 End: 05-17-2024 ambulatory VAIL FAWWAD Not Available Start: 02-15-2024 End: 02-15-2024 ambulatory VAIL FAWWAD Not Available Start: 02-02-2024 End: 02-02-2024 ambulatory VAIL FAWWAD Not Available Start: 01-26-2024 End: 01-26-2024 ambulatory DEBOARH GIPSON Not Available Start: 01-04-2024 End: 01-04-2024 ambulatory VAIL FAWWAD Not Available Start: 01-01-2024 End: 01-01-2024 ambulatory CARLA BLAND Not Available Start: 12-27-2023 End: 12-27-2023 ambulatory [facility] Work Phone: Start: 12-27-2023 End: 12-27-2023 Patient encounter procedure [facility] Physician [facility] Work Phone: Start: 12-16-2022 End: 12-17-2022 ambulatory VAIL H FAWWAD Facility:H1 Start: 09-24-2022 End: 09-25-2022 ambulatory VAIL H FAWWAD Facility:H1 Start: 05-13-2022 End: 07-09-2022 ambulatory FRANCIA Whalen APLING Facility:H1 Start: 04-08-2022 End: 04-09-2022 ambulatory VAIL H FAWWAD Facility:H1 Start: 03-25-2022 End: 03-26-2022 ambulatory VAIL H FAWWAD Facility:H1 Procedures Date Procedure Procedure Detail Performing Clinician Start: 10-06-2023 Mammography Farnaz molina CASH REGISTER OPERATOR Work Phone: Start: 06-12-2021 Colonoscopy Farnaz molina CASH REGISTER OPERATOR Work Phone: Plan of Treatment Date Care Activity Detail Author Start: 06-12-2031 Screening for malign ant neoplasm of colon [facility] Start: 11-30-2025 Screening for malign ant neoplasm of cervix Cervical Cancer Screening [facility] Comment on above: Postponed from 10/03 (Patient Refused) Start: 05-30-2025 End: 05-30-2025 Patient encounter procedure 05/30/2025 2:00 PM EDT Office Visit [facility] [address] [place] [address] Farnaz Turpin, YENIFER [address] [place] [address] [facility] Start: 01-11-2025 Pneumococcal Vaccine : 65+ Years (1 of 1 - PCV) Pneumococcal Vaccine: 65+ Years (1 of 1 - PCV) [facility] Comment on above: Postponed from 10/03 (Patient Ill Today) Start: 11-30-2024 End: 01-28-2026 MG Breast - bilateral Screening Bilateral screening mammogram Imaging Routine Encounter for screening mammogram for malignant neoplasm of breast Expected: 11/30/2024, Expires: 01/28/2026 [facility] Work Phone: Comment on above: Expected: 11/30/2024 , Expires: 01/28/2026 Start: 11-30-2024 End: 11-30-2024 Patient encounter procedure [facility] Comment on above: Arrived Start: 10-06-2024 Screening for malign ant neoplasm of breast Mammogram [facility] Start: 2024 Pneumococcal Vaccine : 65+ Years (1 of 1 - PCV) Pneumococcal Vaccine: 65+ Years (1 of 1 - PCV) [facility] Start: 07-03-2024 Influenza vaccination Influenza Vacc ine (#1) [facility] Start: 1989 Screening for malign ant neoplasm of cervix [facility] Start: 1980 Screening for malign ant neoplasm of cervix Pap Smear [facility] Start: 1960 Screening for malign ant neoplasm of colon [facility] Immunizations Immunization Date Immunization Notes Care Provider Fa cility 08-15-2024 influenza virus vaccine, unspecified formulation Farnaz Turpin CASH REGISTER OPERATOR Work Phone: [facility] 08-24-2023 Influenza, Seasonal, Quadrivalent, Adjuvanted Farnaz Turpin CASH REGISTER OPERATOR Work Phone: [facility] 08-24-2023 SARS-COV-2 (COVID-19 ) vaccine, mRNA, spike protein, LNP, PF, daysi-sucrose, 30 mcg/0.3 mL Farnaz Turpin CASH REGISTER OPERATOR Work Phone: [facility] 08-24-2023 influenza virus vaccine, unspecified formulation Farnaz Turpin CASH REGISTER OPERATOR Work Phone: [facility] 04-08-2023 zoster vaccine recombinant Farnaz Turpin CASH REGISTER OPERATOR Work Phone: [facility] 02-04-2023 zoster vaccine recombinant Farnaz Turpin CASH REGISTER OPERATOR Work Phone: [facility] 09-16-2022 influenza, injectabl e, quadrivalent, preservative free Farnaz Turpin CASH REGISTER OPERATOR Work Phone: [facility] 08-19-2021 influenza, injectabl e, quadrivalent, preservative free Farnaz Turpin CASH REGISTER OPERATOR Work Phone: [facility] 08-04-2020 influenza, injectabl e, quadrivalent, contains preservative Farnaz Turpin CASH REGISTER OPERATOR Work Phone: [facility] 08-10-2018 influenza, injectabl e, quadrivalent, contains preservative Farnaz Trupin CASH REGISTER OPERATOR Work Phone: [facility] 08-21-2017 influenza, injectabl e, quadrivalent, preservative free Farnaz Turpin CASH REGISTER OPERATOR Work Phone: [facility] 10-17-2013 influenza, seasonal, injectable Farnaz Turpin CASH REGISTER OPERATOR Work Phone: [facility] Payers Date Payer Category [place] [address] [id number] 2024 Medicare [id number] 2024 Unknown [id number] 2022 Private Health Insurance [id number] 2022 Unknown [id number] 1959 Self-pay [id number] 1959 Unknown [id number] 2.16.840.1.082541.3.579.2. 593 1959 Unknown [id number] 2.16.840.1.282250.3.579.2. 593 1959 Unknown [id number] 2.16.840.1.741599.3.579.2. 593 1959 Unknown [id number] 2.16.840.1.643192.3.579.2. 593 1959 Unknown [id number] 2.16.840.1.920110.3.579.2. 593 1959 Unknown [id number] 2.16.840.1.862068.3.579.2. 1259 1959 Unknown [id number] 2.16.840.1.271905.3.579.2. 1259 1959 Unknown [id number] 2.16.840.1.325311.3.579.2. 1259 1959 Unknown [id number] 2.16.840.1.135534.3.579.2. 1259 1959 Unknown [id number] 2.16.840.1.342042.3.579.2. 1259 1959 Unknown [id number] 2.16.840.1.293438.3.579.2. 1259 1959 Unknown [id number] 2.16.840.1.842032.3.579.2. 1259 1959 Unknown [id number] 2.16.840.1.918135.3.579.2. 1259 Self-pay Self Pay [id number] Unknown [id number] 2.16.840.1.477761.3.579.2. 593 Unknown [place] BC/BS [id number] Unknown Paulina VALENTIN [id number] Unknown Melvina Barrientos VALENTIN [id number] Social History Date Type Detail Facility Tobacco smoking status NHIS Unknown if ever smoked [facility] Work Phone: Start: 1960 Sex Assigned At Female [facility] Start: 01-04-2024 Tobacco smoking status NHIS Never smoked tobacco [facility] Start: 01-04-2024 Tobacco use and exposure Smokeless tobacco non-user [facility] Start: 05-17-2024 End: 11-30-2024 Alcoholic beverage intake Current drinker of alcohol (finding) [facility] Start: 02-02-2024 End: 05-17-2024 History of Social function [facility] Start: 02-02-2024 End: 05-17-2024 Tobacco use panel [facility] Start: 01-04-2024 Alcohol Comment OCCASSIONAL [facility] Start: 1960 Sex assigned at Not on file [facility] NEGATED: Highlighted rowStart: NINF History of tobacco use Passive smoker [facility] History of Present illness Narrative 11-30-2024 Farnaz Turpin, YENIFER - 11/30/2024 1:25 PM Celestina Turpin, YENIFER - 11/30/2024 1:21 PM Celestina Turpin NP - 11/30/2024 1:20 PM Celestina Turpin NP - 11/30/2024 1:00 PM EST Note Date & Type Note Facility 11-30-2024 History of Presen t illness Narrative Associated Problem(s): Viral upper respiratory tract infection Runny nose Sneezing Sinus congestion Ear pain Headache Ongoing 3 days. Discussed likely viral etiology,. Will treat with Flonase/Zyrtec/conservative measures. Associated Problem(s): Other hyperlipidemia (CMS/HCC) Currently taking Denies any myalgias. Continue current regimen. Most recent Lipid Panel 05/2024 [facility] Associated Problem(s): Gastroesophageal reflux disease Currently taking Omeprazole daily States symptoms have improved significantly. Reports no breakthrough heartburn episodes. Images from the original note were not included. Subjective Patient ID: Catherine Sheikh is a 64 y.o. female who presents for Follow-up. HPI GERD: Currently taking Omeprazole daily States symptoms have improved significantly. Reports no breakthrough heartburn episodes. HLD: Currently taking Denies any myalgias. Continue current regimen. Most recent Lipid Panel 05/2024 [facility]NL Component Ref Range & Units 6 mo ago (05/24/24) 6 mo ago (05/24/24) TRIGLYCERIDES <=150 mg/dL 97 144 R CHOLESTEROL <=200 mg/dL 168 3.6 R HDL CHOLESTEROL 40 - 60 mg/dL 49 10.8 R Comment: > or =60 mg/dl - LOW CARDIOVASCULAR RISK <40 mg/dl - HIGH CARDIOVASCULAR RISK LDL CHOLESTEROL CALCULATED mg/dL 99.6 86 R Comment: <100 mg/dl OPTIMAL 100-129 mg/dl NEAR OR ABOVE OPTIMAL 130-159 mg/dl BORDERLINE HIGH 160-189 mg/dl HIGH >190 mg/dl VERY HIGH VLDL CHOLESTEROL mg/dL 19.4 0.4 R CHOL HDL RATIO 3.4 13 Low R Comment: 3.3 - 4.4 LOW RISK 4.4 - 7.1 AVERAGE RISK 7.1 - 11.0 MODERATE RISK >11.0 HIGH RISK ALANINE AMINOTRANSFERASE 26 R ALKALINE PHOSPHATASE 60 R TOTAL PROTEIN 7.8 R ALBUMIN LEVEL 3.6 R ALBUMIN GLOBULIN RATIO 0.9 Resulting Agency [facility] Symptoms: Runny nose Sneezing Sinus congestion Ear pain Headache Ongoing 3 days. Discussed likely viral etiology,. Will treat with Flonase/Zyrtec/conservative measures. Denies: Cough Fever Chills N/V/D Sore Throat Review of Systems Constitutional: Negative for activity change, appetite change, chills, diaphoresis, fatigue, fever and unexpected weight change. HENT: Negative for congestion, ear pain, rhinorrhea, sinus pressure, sinus pain, sneezing, sore throat, trouble swallowing and voice change. Eyes: Negative for visual disturbance. Respiratory: Negative for cough, chest tightness, shortness of breath and wheezing. Cardiovascular: Negative for chest pain, palpitations and leg swelling. Gastrointestinal: Negative for abdominal distention, abdominal pain, blood in stool, constipation, diarrhea and vomiting. Genitourinary: Negative for decreased urine volume, dysuria, flank pain, frequency, hematuria and urgency. Musculoskeletal: Negative for arthralgias, gait problem, joint swelling and myalgias. Skin: Negative for rash. Neurological: Negative for dizziness, tremors, syncope, weakness, light-headedness and headaches. Psychiatric/Behavioral: Negative for decreased concentration and suicidal ideas. The patient is not nervous/anxious. Hematological: Does not bruise/bleed easily. Endocrine: Negative for cold intolerance, heat intolerance, polydipsia, polyphagia and polyuria. Objective Physical Exam Vitals reviewed. Constitutional: Appearance: Normal appearance. HENT: Right Ear: Tympanic membrane normal. Left Ear: Tympanic membrane normal. Nose: Nose normal. Mouth/Throat: Mouth: Mucous membranes are moist. Pharynx: Oropharynx is clear. Eyes: Pupils: Pupils are equal, round, and reactive to light. Cardiovascular: Rate and Rhythm: Normal rate and regular rhythm. Pulses: Normal pulses. Heart sounds: Normal heart sounds. Pulmonary: Effort: Pulmonary effort is normal. Breath sounds: Normal breath sounds. Abdominal: General: Abdomen is flat. Bowel sounds are normal. Palpations: Abdomen is soft. Skin: Capillary Refill: Capillary refill takes less than 2 seconds. Neurological: Mental Status: She is alert and oriented to person, place, and time. Assessment/Plan Problem List Items Addressed This Visit Other hyperlipidemia (CMS/HCC) - Primary Currently taking Denies any myalgias. Continue current regimen. Most recent Lipid Panel 05/2024 WNL Gastroesophageal reflux disease Currently taking Omeprazole daily States symptoms have improved significantly. Reports no breakthrough heartburn episodes. Viral upper respiratory tract infection Runny nose Sneezing Sinus congestion Ear pain Headache Ongoing 3 days. Discussed likely viral etiology,. Will treat with Flonase/Zyrtec/conservative measures. Relevant Medications fluticasone (Flonase) 50 MCG/ACT nasal spray cetirizine (ZyrTEC) 10 MG tablet Other Visit Diagnoses Encounter for screening mammogram for malignant neoplasm of breast Relevant Orders Bilateral screening mammogram documented in this encounter [facility] Instructions 11-30-2024 Patient Instructions Note Date & Type Note Facility 11-30-2024 Instructions Farnaz Turpin NP - 11/30/2024 1:00 PM EST Continue to rest, drink plenty of fluids, and eat a well-balance diet. Resume normal activity. AVOID anything strenuous until you are feeling better. Treatment: Nasal saline spray 2-3 times/day Cold and sinus medication - if you have high blood pressure issues use coricidin hbp Zyrtec allergy medication once daily. Flonase nasal spray 1-2 squirts in each nostril at night. Tylenol for fever and body aches. Mucinex for cough/congestion 600-1,200mg twice daily. Delsym for a dry cough Vitamins: Vitamin C 1,000mg per day. Vitamin D3 2,000 international unit(s) per day.Zinc 25mg per day. WORSENING SYMPTOMS, CHEST PAIN, OR SHORTNESS OF BREATH, GO TO THE NEAREST EMERGENCY DEPARTMENT.\ documented in this encounter [facility] Clinical Note 04-08-2022 Note Date & [...] authenticated by: MAKENZIE GOLDMAN Date: 2022-04-08 17:50 [facility] Clinical Note 10-09-2021 Note Date & Type [...] Sister and Brother. Hypertension: Sister. Hypothyroidism: Sister. [facility] Comment on above: Result Comment: Elec tronically Signed By: KINZA ARMAS, Raymond Schmidt\ho\Date and Time Signed: 10/09/21 21:37 EST Clinical [...] lesion(s) present No Hyperplastic polyp(s) present No [facility] History and physical note 06-13-2021 Note Date & Type Note Facility 06-13-2021 Note [id number] [facility] Evaluation note Note Date & Type Note Facility Evaluation note No assessment information [facility] Work Phone: Evaluation note Note Date & Type Note Facility Evaluation note Diagnosis Other specified hypothyroidism (CMS/HCC)- Primary Other hyperlipidemia (CMS/HCC) Multiple lung nodules on CT Cellulitis of face Cellulitis and abscess of face Other specified hypothyroidism (CMS/HCC)- Primary Age-related osteoporosis without current pathological fracture (CMS/HCC) Other hyperlipidemia (CMS/HCC) Gastroesophageal reflux disease without esophagitis- Primary Esophageal reflux Other specified hypothyroidism (CMS/HCC) Hyperlipidemia, unspecified hyperlipidemia type (CMS/HCC) Well adult exam Routine general medical examination at a health care facility Age-related osteoporosis without current pathological fracture (CMS/HCC) Multiple lung nodules on CT Osteopenia after menopause Other specified hypothyroidism (CMS/HCC) documented in this encounter [facility] Evaluation note Note Date & Type Note Facility Evaluation note Diagnosis Other specified hypothyroidism (CMS/HCC)- Primary Other hyperlipidemia (CMS/HCC) Multiple lung nodules on CT Cellulitis of face Cellulitis and abscess of face Other specified hypothyroidism (CMS/HCC)- Primary Age-related osteoporosis without current pathological fracture (CMS/HCC) Other hyperlipidemia (CMS/HCC) Gastroesophageal reflux disease without esophagitis- Primary Esophageal reflux Other specified hypothyroidism (CMS/HCC) Hyperlipidemia, unspecified hyperlipidemia type (CMS/HCC) Well adult exam Routine general medical examination at a health care facility Age-related osteoporosis without current pathological fracture (CMS/HCC) Multiple lung nodules on CT Osteopenia after menopause Hyperlipidemia, unspecified hyperlipidemia type (CMS/HCC) documented in this encounter [facility] Evaluation note Note Date & Type Note Facility Evaluation note Diagnosis Other specified hypothyroidism (CMS/HCC)- Primary Other hyperlipidemia (CMS/HCC) Multiple lung nodules on CT Cellulitis of face Cellulitis and abscess of face Other specified hypothyroidism (CMS/HCC)- Primary Age-related osteoporosis without current pathological fracture (CMS/HCC) Other hyperlipidemia (CMS/HCC) Gastroesophageal reflux disease without esophagitis- Primary Esophageal reflux Other specified hypothyroidism (CMS/HCC) Hyperlipidemia, unspecified hyperlipidemia type (CMS/HCC) Well adult exam Routine general medical examination at a health care facility Age-related osteoporosis without current pathological fracture (CMS/HCC) Multiple lung nodules on CT Osteopenia after menopause Other hyperlipidemia (CMS/HCC)- Primary Viral upper respiratory tract infection Acute upper respiratory infections of unspecified site Encounter for screening mammogram for malignant neoplasm of breast Gastroesophageal reflux disease without esophagitis Esophageal reflux documented in this encounter [facility] Summary Purpose Family History No Family History [...] section and content) DATE CREATED AUTHOR 05/24/2022 Carver Wu [facility] DATE CREATED AUTHOR AUTHOR'S ORGANIZ ATION 12/20/2022 [facility] DATE CREATED AUTHOR AUTHOR'S ORGANIZ ATION 12/02/2024 [facility] Care Teams (unrecognized sec tion and content) Team Status: Active Member Role Status Dates Charo Baker MD Primary Care Provider Active Team Status: Inactive Member Role Status Dates Charo Baker MD Primary Care Provider Active S tart: December 27, 2023 End: December 27, 2023 Lary Hackett APRN Attending Provider Active Start: December 27, 2023 End: December 27, 2023 Career Center Director Relationship Specialty Start Date End Date Zachary Faulkner MD [address] [place] [id number] PCP - General Family Medicine 07/27/24 Farnaz Turpin NP [address] [place] [address] Nurse Practitioner Family Medicine 07/27/24 [facility] Director Relationship Specialty Start Date End Date Zachary Faulkner MD [address] [place] [id number] PCP - General Family Medicine 07/27/24 Farnaz Turpin NP [address] [place] [address] Nurse Practitioner Family Medicine 07/27/24 [facility] Center Director Relationship Specialty Start Date End Date Zachary Faulkner MD [address] [place] [address] PCP - General Family Medicine 07/27/24 Farnaz Turpin NP [address] [place] [address] Nurse Practitioner Family Medicine 07/27/24 Goals (unrecognized section and content) Goals may be documented in a n alternate section Reason for Visit (unrecogniz ed section and content) Reason Onset Date Comments Med Refill 11/28/2024 Reason Comments Follow-up FOR RECORDS PERTAINING TO PATIENTS WHO ARE [...] BE BASED ON THE PRIMARY CLINICAL RECORDS. [employer] provides no warranty or guarantee of the accuracy or completeness of information in this document.
--- NOTE | 2024-12-15 12:57 | MM_ITS ---
Patient Name: JUNI HODGES MR#: [id number] : 1960 Exam Date: 12/15/2024 Ordering Doctor: [facility] REPORT PROCEDURE: MM TOMOSYNTHESIS SCREENING BI COMPARISON: MM TOMOSYNTHESIS SCREENING BI, 10/06/2023. MG MAMM SCREEN 3D MEKA CAD, 09/24/2022. MG MAMM SCREEN 3D MEKA CAD, 04/16/2021. MG MAMM MEKA SCRN W CAD DIG, 05/31/2013. INDICATIONS: Screening Calculator Name NCI Breast Cancer Risk Assessment Tool 5 Year Breast Cancer Risk 1.60% Lifetime Breast Cancer Risk 6.10% Personal Breast Cancer No Personal Ovarian Cancer No Treatments None Family Cancers Grandmother-paternal with breast cancer at age ~70. LOCATION: [facility] BREAST COMPOSITION: There are scattered areas of fibroglandular density. FINDINGS: DIAGNOSTIC CATEGORY 1--NEGATIVE. RIGHT BREAST: No significant suspicious finding. No significant change has occurred. LEFT BREAST: No significant suspicious finding. No significant change has occurred. RECOMMENDATIONS: ROUTINE MAMMOGRAM AND CLINICAL EVALUATION IN 12 MONTHS. PLEASE NOTE: A NORMAL MAMMOGRAM DOES NOT EXCLUDE THE POSSIBILITY OF BREAST CANCER. A CLINICALLY SUSPICIOUS PALPABLE LUMP SHOULD BE BIOPSIED. Dictated by: Shahid Molina M.D. on 12/16/2024 at 11:28 Approved by: Shahid Molina M.D. on 12/16/2024 at 11:30
== END 2024-12-15 12:52 | disposition home or self-care (01) ==
LOC: MAMMO 12:52
DX: Z12.31 Encounter for screening mammogram for malignant neoplasm of breast (principal); Z80.3 Family history of malignant neoplasm of breast
CPT/HCPCS: 77063; 77067

== ENCOUNTER 2025-02-23 11:10 | Outpatient (OUT) | payer MEDICARE, OTHER, SELFPAY ==
--- NOTE | 2025-02-23 11:15 | XR_ITS ---
[place] [address] Patient Name: JUNI HODGES MRN: [id number] date: 1960 Sex: F Assigned Patient Location: [facility] Current Patient Location: [facility] Accession/Order Number: [id number] Exam Date: 02/23/2025 13:52 Report Date: 02/23/2025 13:52 At the request of: VASU ALDANA MD Procedure: XR lumbar spine 2-3V LUMBAR SPINE - 3 views CLINICAL HISTORY: Chronic Bilateral Low Back Pain With Right Sciatica COMPARISON: None FINDINGS: Vertebral body heights appear maintained. Diffuse facet joint degenerative changes. Mild endplate degenerative changes. No significant disc height loss. XR/XR lumbar spine 2-3V IMPRESSION: FACET AND ENDPLATE DEGENERATIVE CHANGES WITHOUT SIGNIFICANT DISC HEIGHT LOSS. Impression dictated by: Yonathan Blood Jr.OAdi02/23/2025 1:52 PM Dictation Location: [place] [address] Electronically authenticated by: [id number] Y Date: 02/23/2025 13:52
== END 2025-02-23 11:11 | disposition home or self-care (01) ==
LOC: RAD 11:11
PROVIDERS: PCP Family Medicine; Visit Provider Family Medicine
DX: G89.29 Other chronic pain (principal); M54.41 Lumbago with sciatica, right side; M51.369 Other intervertebral disc degeneration, lumbar region without mention of lumbar back pain or lower extremity pain
CPT/HCPCS: 72100

== ENCOUNTER 2025-03-08 10:01 | Outpatient (RCR) | payer MEDICARE, OTHER, SELFPAY | END 2025-04-06 14:10 | disposition home or self-care (01) | LOC: PT 10:01 | PROVIDERS: PCP Family Medicine; Visit Provider Family Medicine | DX: M54.50 Low back pain, unspecified (principal); M54.31 Sciatica, right side | CPT/HCPCS: 97110; 97140; 97163 ==

== ENCOUNTER 2025-05-18 12:51 | Outpatient (OUT) | payer MEDICARE, OTHER, SELFPAY ==
--- OUTSIDE RECORDS SUMMARY | 2025-05-10 10:45 | XMS_ITS | Encounter Summary ---
Author Organization [facility] Address [address] [place] [place] [address] Care Team Providers Care Meat Carver Name Role Phone Zachary Faulkner MD Primary Care Provider [phone] Farnaz Turpin DYE BOARDING MACHINE OPERATOR Unavailable [phone] Reason for Referral * Consultation (Routine) - Authorized Specialty Diagnoses / Procedures Referred By Contac t Referred To Contact Gastroenterology Diagnoses Gastroesophageal reflux disease without esophagitis Globus sensation Procedures DE OFFICE/OUTPATIENT NEW HIGH MDM 60 MINUTES Zachary Faulkner MD [address] [place] [address] Phone: tel: fax: Unruly Lowe MD [facility] Referrals ONLY fax: Referral ID Status Reason Start Date Expiration Date Visits Requested Visits Authorized [id number] Authorized Specialty Services Required 05/10/2025 11/06/2025 1 1 * Imaging (Routine) - Authorized Specialty Diagnoses / Procedures Referred By Contac t Referred To Contact [facility] Diagnoses Degeneration of intervertebral disc of lumbar region with discogenic back pain Procedures MR lumbar spine wo contrast Zachary Faulkner MD [address] [place] [address] Phone: tel: fax: [facility] [address] [place] [address] Phone: tel: fax: Referral ID Status Reason Start Date Expiration Date V isits Requested Visits Authorized [id number] Authorized 05/10/2025 11/06/2025 1 1 Reason for Visit * Reason Comments Follow-up Urgent care f/up for leg swelling. Back Pain Sciatica, finished p t still having issues Encounter Details Date Type Department Care Team (Late st Contact Info) Description 05/10/2025 10:45 AM EDT Office Visit [facility] [address] [place] [address] Zachary Faulkner MD [address] [place] [address] Degeneration of intervertebral disc of lumbar region with discogenic back pain (Primary Dx); Gastroesophageal reflux disease without esophagitis; Globus sensation Social History Tobacco Use Types Packs/Day Years Used Date Smoking Tobacco: Never Passive Smoke Exposure: Never Smokeless Tobacco: Never Alcohol Use Standard Drinks/Week Comments Yes 0 (1 standard drink = 0.6 oz pur e alcohol) OCCASSIONAL B1300 Health Literacy Answer Date Recor ded How often do you need to hav e someone help you when you read instructions, pamphlets, or other written material from your doctor or pharmacy? Never 02/21/2025 Humiliation, Afraid, Rape, and Kick questionnair e Answer Date Recorded Within the last year, have y ou been afraid of your partner or ex-partner? No 02/21/2025 Within the last year, have y ou been humiliated or emotionally abused in other ways by your partner or ex-partner? No Within the last year, have y ou been kicked, hit, slapped, or otherwise physically hurt by your partner or ex-partner? No 02/21/2025 Within the last year, have y ou been raped or forced to have any kind of sexual activity by your partner or ex-partner? No 02/21/2025 Social Connection and Isolat ion Panel [NHANES] Answer Date Recorded In a typical week, how many times do you talk on the phone with family, friends, or neighbors? More than three times a week 02/21/2025 How often do you get togethe r with friends or relatives? Twice a week 02/21/2025 How often do you attend chur ch or anglican services? More than 4 times per year 02/21/2025 Do you belong to any clubs o r organizations such as congregation groups, unions, fraternal or athletic groups, or school groups? Yes 02/21/2025 How often do you attend meet ings of the clubs or organizations you belong to? 1 to 4 times per year 02/21/2025 Are you , , di vorced, , never , or living with a partner? 02/21/2025 AUDIT-C Answer Date Recorded Q1: How often do you have a drink containing alc ohol? Monthly or less 02/21/2025 Q2: How many drinks containi ng alcohol do you have on a typical day when you are drinking? 3 or 4 02/21/2025 Q3: How often do you have si x or more drinks on one occasion? Less than monthly 02/21/2025 Overall Financial Resource Strain (CARDIA) Answe r Date Recorded How hard is it for you to pa y for the very basics like food, housing, medical care, and heating? Not hard at all 02/21/2025 PHQ-2 Answer Date Recorded Patient Health Questionnaire-2 Score 0 02/02/2024 Hunger Vital Sign Answer Date Recorded Within the past 12 months, y ou worried that your food would run out before you got the money to buy more. Never true 02/22/20 25 Within the past 12 months, t he food you bought just didn't last and you didn't have money to get more. Never true 02/21/2025 PRAPARE - Transportation Answer Date Re corded In the past 12 months, has l ack of transportation kept you from medical appointments or from getting medications? No 02/01 In the past 12 months, has l ack of transportation kept you from meetings, work, or from getting things needed for daily living? No 02/21/2025 Housing Stability Vital Sign Answer Jacoby e Recorded In the last 12 months, was t here a time when you were not able to pay the mortgage or rent on time? No 02/21/2025 Number of Times Moved in the Last Year Not on fi le 02/21/2025 At any time in the past 12 m [facility], were you homeless or living in a correction (including now)? No 02/21/2025 Comments Unknown Sex and Gender Information Value Date Recorded Sex Assigned at Not on file Legal Sex Female 9:45 PM EDT Gender Identity Not on file Sexual Orientation Not on file documented as of this encounter Last Filed Vital Signs Vital Sign Reading Time Taken Comments Blood Pressure 150/72 05/10/2025 10:50 AM EDT Pulse 91 05/10/2025 10:50 AM EDT Temperature 35.4 C (95.7 F) 05/10/2025 10:50 AM EDT Respiratory Rate 22 05/10/2025 10:50 AM EDT Oxygen Saturation 97% 05/10/2025 10:50 AM EDT Inhaled Oxygen Concentration - - Weight 102 kg (224 lb) 05/10/2025 10:50 AM EDT Height 165.1 cm (5' 5 ) 05/10/2025 10:50 AM EDT Body Mass Index 37.28 05/10/2025 10:50 AM EDT documented in this encounter Progress Notes * Zachary Faulkner MD - 05/10/2025 11:13 AM EDTAssociated Problem(s): Globus sensation Symptoms unchanged with omeprazole and refer to GI. * Zachary Faulkner MD - 05/10/2025 11:13 AM EDTAssociated Problem(s): Gastroesophageal reflux disease Symptoms unchanged with omeprazole and refer to GI. * Zachary Faulkner MD - 05/10/2025 11:13 AM EDTAssociated Problem(s): Degeneration of intervertebral disc of lumbar region with discogenic back pain Continued pain and minimal improvement with PT. X-ray with DDD and pain limiting activity. Check MRI and will need referral to pain management or neurosurgery based on results. * Zachary Faulkner MD - 05/10/2025 10:45 AM EDT Images from the original note were not included. Subjective Patient ID: Catherine Sheikh is a 64 y.o. female who presents for Follow-up (Urgent care f/up for leg swelling.) and Back Pain (Sciatica, finished pt still having issues). Urgent care follow up from 04/25 for left leg swelling and follow up back pain. To urgent care for swelling and not painful but swelling in calf and thigh. US negative for DVT and thought likely strain. Advised to take motrin TID. Swelling unchanged. Continues to have back pain. X-ray with DDD and narrowing. Completed PT and pain improved but still present. Pain in low back and across top hips. Pain into right gluteal region and down legs. Pain with bending, lifting, and standing. Hard to complete ADLs due to pain and need to stop and sit frequently during activity. Mild weakness in leg and feels like will give out. Using relafen or motrin and minimal relief. Globus sensation unchanged. Increased omeprazole to BID but still symptoms. Increased epigastric pain and discomfort. Pain after eating and often feels like lump in chest. Prior EGD around 2020. Review of Systems Respiratory: Negative for cough, shortness of breath and wheezing. Cardiovascular: Negative for chest pain and palpitations. Gastrointestinal: Negative for abdominal pain, diarrhea, nausea and vomiting. Genitourinary: Negative for dysuria. Objective Physical Exam Constitutional: General: She is not in acute distress. Appearance: Normal appearance. HENT: Head: Normocephalic. Right Ear: Tympanic membrane normal. Left Ear: Tympanic membrane normal. Eyes: Extraocular Movements: Extraocular movements intact. Pupils: Pupils are equal, round, and reactive to light. Cardiovascular: Rate and Rhythm: Normal rate and regular rhythm. Heart sounds: No murmur heard. No friction rub. No gallop. Pulmonary: Effort: Pulmonary effort is normal. Breath sounds: Normal breath sounds. No wheezing, rhonchi or rales. Abdominal: General: Bowel sounds are normal. There is no distension. Palpations: Abdomen is soft. Tenderness: There is no abdominal tenderness. There is no guarding or rebound. Musculoskeletal: Cervical back: Neck supple. Right lower leg: No edema. Left lower leg: No edema. Neurological: Mental Status: She is alert. Assessment/Plan Problem List Items Addressed This Visit Gastroesophageal reflux disease Symptoms unchanged with omeprazole and refer to GI. Relevant Orders Ambulatory referral to Gastroenterology Degeneration of intervertebral disc of lumbar region with discogenic back pain - Primary Continued pain and minimal improvement with PT. X-ray with DDD and pain limiting activity. Check MRI and will need referral to pain management or neurosurgery based on results. Relevant Orders MR lumbar spine wo contrast Globus sensation Symptoms unchanged with omeprazole and refer to GI. Relevant Orders Ambulatory referral to Gastroenterology documented in this encounter Plan of Treatment Upcoming Encounters Date Type Department Care Team (Late st Contact Info) Description 08/17/2025 11:00 AM EDT Office Visit [facility] [address] [place] [address] Zachary Faulkner MD [address] [place] [address] Scheduled Orders Name Type Priority Associated Diagnoses Orde r Schedule MR lumbar spine wo contrast Imaging Routine Degeneration of intervertebral disc of lumbar region with discogenic back pain Expected: 05/10/2025, Expires: 05/10/2026 Scheduled Referrals Name Type Priority Associated Diagnoses Order Schedule Ambulatory referral to Gastroenterology Outpatient Referral Routine Gastroesophageal reflux disease without esophagitis Globus sensation Expected: 05/10/2025 (Approximate), Expires: 11/10/2025 documented as of this encounter Visit Diagnoses Diagnosis Degeneration of intervertebral disc of lumbar region with discogenic back pain- Primary Gastroesophageal reflux disease without esophagitis Esophageal reflux Globus sensation Gastrointestinal malfunction arising from mental factors documented in this encounter Care Teams Meat Carver Relationship Specialty Start Date End Date Zachary Faulkner MD [address] [place] [address] PCP - General Family Medicine 07/27/24 Farnaz Turpin NP [address] [place] [address] Nurse Practitioner Family Medicine 07/27/24 documented as of this encounter
--- OUTSIDE RECORDS SUMMARY | 2025-05-15 07:23 | XMS_ITS | Continuity of Care Document ---
Author Organization [facility] Address [address] [place] [address] Phone Care Team Providers Care Assistant Associate Professor Name Role Phone Charo Baker MD Primary Care Provider Fortino Walter APRN Attending Provider Care Teams Patient Care Team Team Status: Active Member Role Status Dates Charo Baker MD Primary Care Provider Active Patient Care Team Team Status: Inactive Member Role Status Dates Charo Baker MD Primary Care Provider Active S tart: May 15, 2025 End: May 15, 2025 Fortino Walter APRN Attending Provider Active Start: May 15, 2025 End: May 15, 2025 Chief Complaint and Reason for Visit Chief Complaint Admit Date REF FOR GERD, GLOBUS SENSATION May 10:16am Allergies, Adverse Reactions, Alerts Allergen Type Severity Reaction Last Updated Verified Status No Known Allergies Allergy Unknown May 15, 2025 10:23 am Yes Active Social History Smoking Status Unknown if ever smoked Observation Status Observation Response Date of Response Legal Sex Female (finding) Sex Assigned At Female October [birth year] Medications Medication Status Dose Units Route Directions Qty Days St art Date Stop Date End Date Instructions Adherence Calcium Carbonate-V itamin D3 (Oyster Shell Calcium-Vit D3) 500 mg-10 mcg (400 unit) tablet Active 1 TAB PO Daily 2023 1:00am Unknown Levothyroxi ne 100 mcg tablet Active 100 MCG PO Daily 2023 1:00am Unknown Atorvastati n 10 mg tablet Active 10 MG PO Daily 2023 1:00am Unknown Alendronate 70 mg tablet Active MG PO 2023 1:00am Unknown Clindamycin Hcl 300 mg capsule Discont inued 300 MG PO Q8H 21 7 2023 1:00am May 15, 2025 10:23 am Omeprazole 40 mg capsule,del ayed release(DR/ EC) Active 40 MG PO Twice daily May 15, 2025 12:00a m Unknown Vital Signs Vital Reading Result Reference Range Collection Date/Time Height 64 [in_i] May 15, 2025 10:22am Weight 99.79 kg May 15, 2025 10:22am Heart Rate 78 /min 60-100 May 15, 2025 10:22am BP Systolic 148 mm[Hg] 100-140 May 15, 2025 10:22am BP Diastolic 75 mm[Hg] 60-100 May 15, 2025 10:22am BMI (Body Mass Index) 37.8 kg/m2 May 022024 10:22am Advance Directives Advance Directive Response Recorded Date/ Time Advance Directives No March 15 8:04am Insurance Providers Guarantor Catherine Sheikh Address [address] [address] Contact Info. Home Phone: Payer Policy Id Subscriber's Name Subscriber Id Chantel ctive Date Expiration Date MMO [id number] Catherine Sheikh [id number] Jeanie VASQUEZ/BS [id number] Catherine Sheikh [id number] [place] VALENTIN [id number] Catherine Sheikh [id number] Melvina Barrientos VALENTIN [id number] Catherine Sheikh [id number] Medicare [id number] Catherine Sheikh [id number] Encounters Encounter Location(s) Arrival/Admit Date Discharge/Depart Date Provider(s) Departed Physician/Prov ider Office Visit -[facility] May 15, 2025 10:16am May 15, 2025 11:22am Fortino Walter APRN Assessments Author Fortino [facility] Authored May 15, 2025 11:1 8am - Dyspepsia - Globus sensation - GERD Plan of Treatment Author Fortino [facility] Authored May 15, 2025 11:1 9am - Continue PPI therapy twice daily. -Continue to implement lifestyle modification for GERD. - Schedule EGD. Future Tests Future scheduled test information is unavailable Pending Tests Pending diagnostic test information is unavailable Future Visits Future appointment information is unavailable Referrals to Other Providers Referral information is unavailable Future Procedures Future procedure information is unavailable Future Medications Future medication information is unavailable Patient Instructions Patient instructions are unavailable
--- OUTSIDE RECORDS SUMMARY | 2025-05-18 12:53 | XMS_ITS | Encounter Summary ---
Author Organization [facility] Address [address] [facility] [place] [address] Care Team Providers Care Medical Communication Specialist Name Role Phone Zachary Faulkner MD Primary Care Provider [phone] Farnaz Turpin BLUEPRINT REPRODUCER Unavailable [phone] Encounter Details Date Type Department Care Team (Late st Contact Info) Description 02/23/2025 Orders Only [facility] [address] [place] [address] Zachary Faulkner MD [address] [place] [address] Social History Tobacco Use Types Packs/Day Years [...] often do you attend chur ch or judaism services? More than 4 times per year 02/21/2025 Do you belong to any clubs o r organizations such as religious groups, unions, fraternal or athletic groups, or [...] any time in the past 12 m [facility], were you homeless or living in a usp (including now)? No 02/21/2025 Comments Unknown Sex and Gender Information Value Date Recorded Sex Assigned at Not on file Legal Sex Female 9:45 PM EDT Gender Identity Not on file Sexual Orientation Not on file documented as of this encounter Plan of Treatment Upcoming Encounters Date Type Department Care Team (Late st Contact Info) Description 08/17/2025 11:00 AM EDT Office Visit [facility] [address] [place] [address] Zachary Faulkner MD [address] [place] [address] documented as of this encounter Visit Diagnoses Not on filedocumented in this encounter Care Teams Medical Communication Specialist Relationship Specialty Start Date End Date Zachary Faulkner MD [address] [place] [phone] PCP - General Family Medicine 07/27/24 Farnaz Turpin NP [address] [place] [address] Nurse Practitioner Family Medicine 07/27/24 documented as of this encounter
--- OUTSIDE RECORDS SUMMARY | 2025-05-18 12:53 | XMS_ITS | Encounter Summary ---
Author Organization [facility] Address [address] [place] [address] Care Team Providers Care Vp Medical Name Role Phone Shaikh CHANDA Chapin Primary Care Provider [phone] Unallocated, Moon Provider Primary Care Provi randee Shaikh CHANDA Chapin Primary Care Provider [phone] Zachary Faulkner MD Primary Care Provider [phone] Farnaz Turpin DAIRY CATTLE FARM MANAGER Unavailable [phone] Reason for Visit * Reason Comments Med Refill PT INFORMED THAT FOS AMAX WAS SENT IN AND SHE VOICED UNDERSTANDING -SCR Encounter Details Date Type Department Care Team (Late st Contact Info) Description 11/15/2023 [facility]ill [facility] [address] [place] [address] Shaikh Chapin MD [address] [place] [address] Osteopenia after menopause (Primary Dx) Social History Tobacco Use Types Packs/Day Years Used Date Smoking Tobacco: Never Assessed Comments Unknown Sex and Gender Information Value Date Recorded Sex Assigned at Not on file Legal Sex Female 9:45 PM EDT Gender Identity Not on file Sexual Orientation Not on file documented as of this encounter Miscellaneous Notes * Telephone Encounter - Shaikh Tavares MD - 11/18/2023 11:30 PM EST Approving, but needs appt for additional refills. * Telephone Encounter - Margie Martin MA - 11/18/2023 6:04 PM EST PT INFORMED THAT FOSAMAX WAS SENT IN AND SHE VOICED UNDERSTANDING -SCR * Telephone Encounter - Margie Martin MA - 11/18/2023 6:03 PM EST ----- Message from Shaikh Tavares MD sent at 11/18/2023 3:35 PM EST ----- Regarding: RE: RX REFILLS done ----- Message ----- From: Margie Martin MA Sent: 11/17/2023 6:21 PM EST To: Shaikh Tavares MD Subject: RX REFILLS PT LEFT VM ASKING FOR REFILL OF FOSAMAX AND ALENDRONATE PLEASE. PT USES [facility] IN [place]. -SCR documented in this encounter Plan of Treatment Upcoming Encounters Date Type Department Care Team (Late st Contact Info) Description 08/17/2025 11:00 AM EDT Office Visit [facility] [address] [place] [address] Zachary Faulkner MD [address] [place] [address] documented as of this encounter Visit Diagnoses Diagnosis Osteopenia after menopause- Primary documented in this encounter Care Teams Vp Medical Relationship Specialty Start Date End Date Shaikh Chapin MD PCP - General Internal Medicine 05/29/23 12/31/23 Unallocated, [facility] [address] [place] [address] PCP - General Family Medicine 01/01/24 01/03/24 Shaikh Chapin MD [address] [place] [address] PCP - General Internal Medicine 01/04/24 07/26/24 Zachary Faulkner MD [address] [place] [address] PCP - General Family Medicine 07/27/24 Farnaz Turpin NP [address] [place] [address] Nurse Practitioner Family Medicine 07/27/24 documented as of this encounter
--- OUTSIDE RECORDS SUMMARY | 2025-05-18 12:53 | XMS_ITS | Encounter Summary ---
Author Organization [facility] Address [address] [place] [address] Care Team Providers Care Mechanical Design Engineer Name Role Phone Shaikh CHANDA Chapin Primary Care Provider [phone] Unallocated, Moon Provider Primary Care Provi randee Shaikh CHANDA Chapin Primary Care Provider [phone] Zachray Faulkner MD Primary Care Provider [phone] Farnaz Turpin PULLMAN CAR REPAIRER Unavailable [phone] Encounter Details Date Type Department Care Team (Late st Contact Info) Description 11/09/2023 Orders Only [facility] [address] [place] [address] Shaikh Chapin MD [address] [place] [address] Social History Tobacco Use Types Packs/Day Years [...] 08/17/2025 11:00 AM EDT Office Visit [facility] [address] [place] [phone] Zachary Faulkner MD [address] [place] [address] documented as of this encounter Visit Diagnoses Not on filedocumented in this encounter Care Teams Mechanical Design Engineer Relationship Specialty Start Date End Date Shaikh Chapin MD PCP - General Internal Medicine 05/29/23 12/31/23 Unallocated, Moon Valera MD [address] [facility] [place] [place] [address] PCP - General Family Medicine 01/01/24 01/03/24 Shaikh Chapin MD [address] [place] [address] PCP - General Internal Medicine 01/04/24 07/26/24 Zachary Faulkner MD [address] [place] [address] PCP - General Family Medicine 07/27/24 Farnaz Turpin NP [address] [place] [address] Nurse Practitioner Family Medicine 07/27/24 documented as of this encounter
--- OUTSIDE RECORDS SUMMARY | 2025-05-18 12:53 | XMS_ITS | Encounter Summary ---
Author Organization [facility] Address [address] [facility] [place] [address] Care Team Providers Care Renovation Plant Supervisor Name Role Phone Zachary Faulkner MD Primary Care Provider [phone] Farnaz Turpin NEW ACCOUNTS CLERK Unavailable [phone] Encounter Details Date Type Department Care Team (Late st Contact Info) Description 02/24/2025 [facility] [address] [place] [address] Zachary Faulkner MD [address] [place] [address] Social History Tobacco Use Types Packs/Day Years [...] 02/21/2025 How often do you attend chur or nondenominational services? More than 4 times per year 02/21/2025 Do you belong to any clubs o r organizations such as episcopalian groups, unions, fraternal or athletic groups, or [...] any time in the past 12 m [facility], were you homeless or living in a nursing home (including now)? No 02/21/2025 Comments Unknown Sex [...] Office Visit [facility] [address] [place] [address] Zachary Faulkner MD [address] [place] [address] documented as of this encounter Visit Diagnoses Not on filedocumented in this encounter Care Teams Renovation Plant Supervisor Relationship Specialty Start Date End Date Zachary Faulkner MD [address] [place] [address] PCP - General Family Medicine 07/27/24 Farnaz Turpin NP [address] [place] [address] Nurse Practitioner Family Medicine 07/27/24 documented as of this encounter
--- OUTSIDE RECORDS SUMMARY | 2025-05-18 12:53 | XMS_ITS | Encounter Summary ---
Author Organization [facility] Address [address] [place] [address] Care Team Providers Care Classified Copy Control Clerk Name Role Phone Zachary Faulkner MD Primary Care Provider [phone] Farnaz Turpin CITY PLANT SUPERVISOR Unavailable [phone] Encounter Details Date Type Department Care Team (Late st Contact Info) Description 10/21/2024 Orders Only [facility] [address] [place] [address] Gerald Nieves MD [address] [place], [place] [id number] Social History Tobacco Use Types Packs/Day Years Used Date Smoking Tobacco: Never Passive Smoke Exposure: Never Smokeless Tobacco: Never Alcohol Use Standard Drinks/Week Comments Yes 0 (1 standard drink = 0.6 oz pur e alcohol) OCCASSIONAL PHQ-2 Answer Date Recorded Patient Health Questionnaire-2 Score 0 02/02/2024 Comments Unknown Sex and Gender Information Value Date Recorded Sex Assigned at Not on file Legal Sex Female 9:45 PM EDT Gender Identity Not on file Sexual Orientation Not on file documented as of this encounter Plan of Treatment Upcoming Encounters Date Type Department Care Team (Late st Contact Info) Description 08/17/2025 11:00 AM EDT Office Visit [facility] [address] [place] [address] Zachary Faulkner MD [address] [place] [address] documented as of this encounter Procedures Procedure Name Priority Date/Time Associated Diagnosis Comments XR CHEST 1 VIEW Routine 10/21/2024 11:31 AM EST documented in this encounter Results * XR chest 1 view (10/21/2024 11:31 AM EST) Anatomical Region Laterality Modality Chest Radiographic Catherine ging Gerald Nieves MD IMG XR PROCEDURES Final Resul t documented in this encounter Visit Diagnoses Not on filedocumented in this encounter Care Teams Classified Copy Control Clerk Relationship Specialty Start Date End Date Zachary Faulkner MD [address] [place] [address] PCP - General Family Medicine 07/27/24 Farnaz Turpin NP [address] [place] [address] Nurse Practitioner Family Medicine 07/27/24 documented as of this encounter
--- OUTSIDE RECORDS SUMMARY | 2025-05-18 12:53 | XMS_ITS | Encounter Summary ---
Author Organization [facility] Address [address] [place] [address] Care Team Providers Care Art Gallery Director Name Role Phone Zachary Faulkner MD Primary Care Provider [phone] Farnaz Turpin BARREL CUTTER Unavailable [phone] Encounter Details Date Type Department Care Team (Late st Contact Info) Description 02/23/2025 Results Follow-Up [facility] [address] [place] [address] Zachary Faulkner MD [address] [place] [address] Social History Tobacco Use Types Packs/Day Years [...] often do you attend chur ch or zoroastrian services? More than 4 times per year 02/21/2025 Do you belong to any clubs o r organizations such as jewish groups, unions, fraternal or athletic groups, or [...] any time in the past 12 m [facility], were you homeless or living in a prison (including now)? No 02/21/2025 Comments Unknown Sex [...] Office Visit [facility] [address] [place] [address] Zachary Faulkner MD [address] [place] [address] documented as of this encounter Visit Diagnoses Not on filedocumented in this encounter Care Teams Art Gallery Director Relationship Specialty Start Date End Date Zachary Faulkner MD [address] [place] [address] PCP - General Family Medicine 07/27/24 Farnaz Turpin NP [address] [place] [address] Nurse Practitioner Family Medicine 07/27/24 documented as of this encounter
--- OUTSIDE RECORDS SUMMARY | 2025-05-18 12:53 | XMS_ITS | Encounter Summary ---
Author Organization [facility] Address [address] [place] [place] [address] Care Team Providers Care Slide Attendant Name Role Phone Shaikh CHANDA Chapin Primary Care Provider [phone] Unallocated, Moon Provider Primary Care Provi randee Shaikh CHANDA Chapin Primary Care Provider [phone] Zachary Faulkner MD Primary Care Provider [phone] Farnaz Turpin CHUCKING MACHINE SET UP OPERATOR Unavailable [phone] Reason for Visit * Reason Comments Med Refill Encounter Details Date Type Department Care Team (Late st Contact Info) Description 11/07/2023 Refill [facility] [address] [place] [address] Shaikh Chapin MD [address] [place] [address] Osteoporosis, unspecified osteoporosis type, unspecified pathological fracture presence (Primary Dx) Social History Tobacco Use Types Packs/Day Years Used Date Smoking Tobacco: Never Assessed Comments Unknown Sex and Gender Information Value Date Recorded Sex Assigned at Not on file Legal Sex Female 9:45 PM EDT Gender Identity Not on file Sexual Orientation Not on file documented as of this encounter Miscellaneous Notes * Telephone Encounter - Shaikh Tavares MD - 11/09/2023 9:58 AM EST Approving, but needs appt for additional refills. documented in this encounter Plan of Treatment Upcoming Encounters Date Type Department Care Team (Late st Contact Info) Description 08/17/2025 11:00 AM EDT Office Visit [facility] [address] [place] [address] Zachary Faulkner MD [address] [place] [address] documented as of this encounter Visit Diagnoses Diagnosis Osteoporosis, unspecified osteoporosis type, unspecified pathological fracture presence- Primary documented in this encounter Care Teams Slide Attendant Relationship Specialty Start Date End Date Shaikh Chapin MD PCP - General Internal Medicine 05/29/23 12/31/23 Unallocated, Moon Valera MD [facility] [place] [address] PCP - General Family Medicine 01/01/24 01/03/24 Shaikh Chapin MD [address] [place] [address] PCP - General Internal Medicine 01/04/24 07/26/24 Zachary Faulkner MD [address] [place] [address] PCP - General Family Medicine 07/27/24 Farnaz Turpin NP [address] [place] [address] Nurse Practitioner Family Medicine 07/27/24 documented as of this encounter
--- OUTSIDE RECORDS SUMMARY | 2025-05-18 12:53 | XMS_ITS | Encounter Summary ---
Author Organization [facility] Address [address] [facility] [place] [address] Care Team Providers Care Raw Products Director Name Role Phone Shaikh CHANDA Chapin Primary Care Provider [phone] Unallocated, Moon Valera MD Primary Care Provi randee Shaikh CHANDA Chapin Primary Care Provider [phone] Zachary Faulkner MD Primary Care Provider [phone] Farnaz Turpin MH TEACHER Unavailable [phone] Encounter Details Date Type Department Care Team (Late st Contact Info) Description 10/06/2023 Clinisync Result Encounter [facility] External Department Unsolicited Shaikh Chapin MD [address] [place] [address] Social History Tobacco Use Types Packs/Day Years [...] 08/17/2025 11:00 AM EDT Office Visit [facility] [address] [place] [address] Zachary Faulkner MD [address] [place] [address] documented as of this encounter Procedures Procedure Name Priority Date/Time Associated Diagnosis Comments MM TOMOSYNTHESIS SCREENING BI 10/06/2023 3:09 PM EST documented in this encounter Results * MM TOMOSYNTHESIS SCREENING BI (10/06/2023 3:09 PM EST) Anatomical Region Laterality Modality Other 10/06/2023 3:09 PM EST Narrative 10/06/2023 3:10 PM EST The [address] [address] Mammography Report Signed Patient: CATHERINE HODGES MR#: [id number] : 1960 Acct:[id number] Age/Sex: 63 / F ADM Date: 10/06/23 Loc: MAMMO Attending Dr: Shaikh Tavares Oliver Ordering Physician: Shaikh Benito Chapin Results: Date of Service: 10/06/23 Follow Up: Procedure(s): MM tomosynthesis screening BI Accession Number(s): [id number] cc: Shaikh Benito Chapin Patient Name: CATHERINE HODGES MR#: [id number] : 1960 Exam Date: 10/06/2023 Ordering Doctor: Shaikh Quintin Chapin . RADIOLOGY REPORT PROCEDURE: MM TOMOSYNTHESIS SCREENING BI COMPARISON: MG MAMM SCREEN 3D MEKA CAD, 09/24/2022. MG MAMM SCREEN 3D MEKA CAD, 04/16/2021. MG MAMM SCREEN MEKA W CAD, 06/30/2017. MG MAMM MEKA SCRN W CAD DIG, 05/31/2013. INDICATIONS: Screening Calculator Name NCI Breast Cancer Risk Assessment Tool 5 Year Breast Cancer Risk 1.60% Lifetime Breast Cancer Risk 6.30% Personal Breast Cancer No Personal Ovarian Cancer No Treatments None Family Cancers Grandmother-paternal with breast cancer at age 70. LOCATION: The [facility] BREAST COMPOSITION: Scattered areas fibroglandular density. FINDINGS: DIAGNOSTIC CATEGORY 2--BENIGN FINDING: RIGHT BREAST: No significant suspicious finding. Scattered benign-appearing lymph nodes are present. No significant change has occurred. LEFT BREAST: No significant suspicious finding. Scattered benign-appearing lymph nodes are present. No significant change has occurred. RECOMMENDATIONS: ROUTINE MAMMOGRAM AND CLINICAL EVALUATION IN 12 MONTHS. PLEASE NOTE: A NORMAL MAMMOGRAM DOES NOT EXCLUDE THE POSSIBILITY OF BREAST CANCER. A CLINICALLY SUSPICIOUS PALPABLE LUMP SHOULD BE BIOPSIED. Dictated by: Shahid Molina M.D. on 10/06/2023 at 15:07 Approved by: Shahid Molina M.D. on 10/06/2023 at 15:09 Dictated By: Shahid Molina M.D. Signed By: 10/06/23 1510 DD/ 1509 TD/TT: Lab[facility]: Procedure Note Radiology, Radiologist, MD - 10/06/2023 [place] [address] Mammography Report Signed Patient: CATHERINE HODGES R#: [id number] : 1960cct:[id number] Age/Sex: 63 / FADM Date: 10/06/23 Loc: MAMMO Attending Dr: Shaikh Tavares Oliver Ordering Physician: Shaikh Benito ChapinResults: Date of Service: 10/06/23Follow Up: Procedure(s): MM tomosynthesis screening BI Accession Number(s): [id number] cc: Shaikh Benito Chapin Patient Name: CATHERINE HODGES MR#: [id number] : 1960 Exam Date: 10/06/2023 Ordering Doctor: Shaikh Quintin Joshi RADIOLOGY REPORT PROCEDURE: MM TOMOSYNTHESIS SCREENING BI COMPARISON: MG MAMM SCREEN 3D MEKA CAD, 09/24/2022. MG MAMM SCREEN 3DBIL CAD, 04/16/2021. MG MAMM SCREEN MEKA W CAD, 06/30/2017. MG MAMM MEKA SCRN WCAD DIG, 05/31/2013. INDICATIONS: Screening Calculator Name NCI Breast Cancer Risk Assessment Tool 5 Year Breast Cancer Risk 1.60% Lifetime Breast Cancer Risk 6.30% Personal Breast Cancer No Personal Ovarian Cancer No Treatments None Family Cancers Grandmother-paternal with breast cancer at age 70. LOCATION: The [facility] BREAST COMPOSITION: Scattered areas fibroglandular density. FINDINGS: DIAGNOSTIC CATEGORY 2--BENIGN FINDING: RIGHT BREAST: No significant suspicious finding. Scatteredbenign-appearing lymph nodes are present. No significant change has occurred. LEFT BREAST: No significant suspicious finding. Scatteredbenign-appearing lymph nodes are present. No significant change has occurred. RECOMMENDATIONS: ROUTINE MAMMOGRAM AND CLINICAL EVALUATION IN 12 MONTHS. PLEASE NOTE: A NORMAL MAMMOGRAM DOES NOT EXCLUDE THE POSSIBILITY OFBREAST CANCER. A CLINICALLY SUSPICIOUS PALPABLE LUMP SHOULD BE BIOPSIED. Dictated by: Shahid Molina M.D. on 10/06/2023 at 15:07 Approved by: Shahid Molina M.D. on 10/06/2023 at 15:09 Dictated By: Shahid Molina M.D. Signed By:10/06/23 1510 DD/ 1509 TD/TT: [facility]: us Shaikh Tavares [facility] Final Result documented in this encounter Visit Diagnoses Not on filedocumented in this encounter Care Teams Raw Products Director Relationship Specialty Start Date End Date Shaikh Chapin MD PCP - General Internal Medicine 05/29/23 12/31/23 Unallocated, [place] [address] PCP - General Family Medicine 01/01/24 01/03/24 Shaikh Chapin MD [address] [place] [address] PCP - General Internal Medicine 01/04/24 07/26/24 Zachary Faulkner MD [address] [place] [address] PCP - General Family Medicine 07/27/24 Farnaz Turpin NP [address] [place] [address] Nurse Practitioner Family Medicine 07/27/24 documented as of this encounter
--- OUTSIDE RECORDS SUMMARY | 2025-05-18 12:54 | XMS_ITS | Encounter Summary ---
Author Organization [facility] Address [address] [facility] [place] [address] Care Team Providers Care Medical Social Consultant Name Role Phone Shaikh CHANDA Chapin Primary Care Provider [phone] Zachary Faulkner MD Primary Care Provider [phone] Farnaz Turpin AIR QUALITY MANAGER Unavailable Reason for Visit * Reason Comments Med Refill Encounter Details Date Type Department Care Team (Late st Contact Info) Description 03/02/2024 Refill [facility] [address] [place] [address] Shaikh Chapin MD [address] [place] [address] Other specified hypothyroidism (Primary Dx) Social History Tobacco Use Types [...] Telephone Encounter - Shaikh Tavares MD - 03/02/2024 11:34 AM EDT Approving, but needs appt for additional refills. documented in this encounter Plan of Treatment Upcoming Encounters Date Type Department Care Team (Late st Contact Info) Description 08/17/2025 11:00 AM EDT Office Visit [facility] [address] [place] [address] Zachary Faulkner MD [address] [place] [address] documented as of this encounter Visit Diagnoses Diagnosis Other specified hypothyroidism- Primary documented in this encounter Care Teams Medical Social Consultant Relationship Specialty Start Date End Date Shaikh Chapin MD [address] [place] [address] PCP - General Internal Medicine 01/04/24 07/26/24 Zachary Faulkner MD [address] [place] [address] PCP - General Family Medicine 07/27/24 Farnaz Turpin NP [address] [place] [address] Nurse Practitioner Family Medicine 07/27/24 documented as of this encounter
--- OUTSIDE RECORDS SUMMARY | 2025-05-18 12:54 | XMS_ITS | Encounter Summary ---
Author Organization [facility] Address [address] [facility] [place] [address] Care Team Providers Care Private Investigator Name Role Phone Shaikh CHANDA Chapin Primary Care Provider [phone] Zachary Faulkner MD Primary Care Provider [phone] Farnaz Turpin FLEXO OPERATOR Unavailable [phone] Encounter Details Date Type Department Care Team (Late st Contact Info) Description 05/25/2024 Clinisync Result Encounter [facility] External Department Unsolicited Shaikh Chapin MD [address] [place] [address] Social History Tobacco Use Types Packs/Day Years [...] 11:00 AM EDT Office Visit [facility] [address] [place] [address] Zachary Faulkner MD [address] [place] [address] documented as of this encounter Procedures Procedure Name Priority Date/Time Associated Diagnosis Comments CT CHEST WO CON 05/25/2024 5:43 AM EDT documented in this encounter Results * CT CHEST WO CON (05/25/2024 5:43 AM EDT) Anatomical Region Laterality Modality Other 05/25/2024 5:43 AM EDT Narrative 05/25/2024 5:47 AM EDT [address] [address] [address] Scan Report Signed Patient: CATHERINE HODGES MR#: [id number] : 1960 Acct:[id number] Age/Sex: 63 / F ADM Date: 05/24/24 Loc: CT Attending Dr: Shaikh Tavares Oliver Ordering Physician: Shaikh Benito Chapin Date of Service: 05/24/24 Procedure(s): CT chest wo con Accession Number(s): [id number] cc: Shaikh Benito Chapin [address] [id number] Patient Name: CATHERINE HODGES MRN: [id number] date: 1960 Sex: F Assigned Patient Location: CT Current Patient Location: Accession/Order Number: [id number] Exam Date: 05/24/2024 09:00 Report Date: 05/25/2024 05:43 At the request of: SHAIKH TAVARES Procedure: CT chest wo con EXAMINATION: CT chest wo con HISTORY: Multiple Lung Nodules ; follow-up lung nodules COMPARISON: CT chest 12/16/2022, 04/16/2021 TECHNIQUE: Axial, Coronal, and Sagittal images were created without the administration of IV contrast material. Dose reduction techniques were achieved by using automated exposure control and/or adjustment of mA and/or kV according to patient size and/or use of iterative reconstruction technique. FINDINGS: LUNGS: Several small 5 mm or smaller nodules scattered within the lungs; unchanged. No new nodules or acute infiltrates. PLEURA: No mass, effusion, or pneumothorax. VASCULATURE: No abnormality. MO: No mass or pathologic adenopathy. MEDIASTINUM: No mass or pathologic adenopathy. CARDIAC: No enlargement, pericardial thickening, or pericardial effusion. Coronary Artery calcifications: AORTA: No aneurysm or dissection. CHEST WALL: No mass or axillary adenopathy BONES: No bone lesion or fracture. LIMITED ABDOMEN: Several small stones within noninflamed gallbladder. Limited images of the upper abdomen. OTHER: Negative. CT/CT chest wo con IMPRESSION: 1. Lung-RADS 2- Benign Appearance or Behavior. Nodules with a very low likelihood of becoming a clinically active cancer due to size or lack of growth. Follow-up CT Chest in 1 year if patient is at increased risk for lung cancer. Electronically authenticated by: SHAHID MOLINA Date: 05/25/2024 05:43 Dictated By: Shahid Molina M.D. Signed By: 05/25/24 0547 DD/ 0543 TD/TT: Intellectual Property Manager: Procedure Note Radiology, Radiologist, MD - 05/25/2024 [place] [address] CT Scan Report Signed Patient: CATHERINE HODGES R#: [id number] : 1960cct:[id number] Age/Sex: 63 / FADM Date: 05/24/24 Loc: CT Attending Dr: Shaikh Tavares Oliver Ordering Physician: Shaikh Benito Chapin Date of Service: 05/24/24 Procedure(s): CT chest wo con Accession Number(s): [id number] cc: Shaikh Benito Chapin The [place] [address] Patient Name: CATHERINE HODGES MRN: [id number] date: 1960 Sex: F Assigned Patient Location: CT Current Patient Location: Accession/Order Number: [id number] Exam Date: 05/24/2024 09:00 Report Date: 05/25/2024 05:43 At the request of: SHAIKH TAVARES Procedure: CT chest wo con EXAMINATION: CT chest wo con HISTORY: Multiple Lung Nodules ; follow-up lung nodules COMPARISON: CT chest 12/16/2022, 04/16/2021 TECHNIQUE: Axial, Coronal, and Sagittal images were created without the administration of IV contrast material. Dose reduction techniques were achieved by using automated exposure control and/or adjustment of mA and/or kV according to patient size and/or use of iterative reconstruction technique. FINDINGS: LUNGS: Several small 5 mm or smaller nodules scattered within the lungs; unchanged. No new nodules or acute infiltrates. PLEURA: No mass, effusion, or pneumothorax. VASCULATURE: No abnormality. MO: No mass or pathologic adenopathy. MEDIASTINUM: No mass or pathologic adenopathy. CARDIAC: No enlargement, pericardial thickening, or pericardial effusion. Coronary Artery calcifications: AORTA: No aneurysm or dissection. CHEST WALL: No mass or axillary adenopathy BONES: No bone lesion or fracture. LIMITED ABDOMEN: Several small stones within noninflamed gallbladder.Limited images of the upper abdomen. OTHER: Negative. CT/CT chest wo con IMPRESSION: 1. Lung-RADS 2- Benign Appearance or Behavior. Nodules with a very low likelihood of becoming a clinically active cancer due to size or lack of growth. Follow-up CT Chest in 1 year if patient is at increased risk forlung cancer. Electronically authenticated by: SHAHID MOLINA Date: 05/25/2024 05:43 Dictated By: Shahid Molina M.D. Signed By:05/25/24 0547 DD/ 0543 TD/TT: Intellectual Property Manager: us Shaikh Tavares [facility] Final Result documented in this encounter Visit Diagnoses Not on filedocumented in this encounter Care Teams Private Investigator Relationship Specialty Start Date End Date Shaikh Chapin MD [address] [place] [address] PCP - General Internal Medicine 01/04/24 07/26/24 Zachary Faulkner MD [address] [place] [address] PCP - General Family Medicine 07/27/24 Farnaz Turpin NP [address] [place] [address] Nurse Practitioner Family Medicine 07/27/24 documented as of this encounter
--- OUTSIDE RECORDS SUMMARY | 2025-05-18 12:54 | XMS_ITS | Encounter Summary ---
Author Organization [facility] Address [address] [facility] [place] [address] Care Team Providers Care Second Cook And Baker Name Role Phone Zachary Faulkner MD Primary Care Provider [phone] Farnaz Turpin TRANSPORT RN Unavailable [phone] Encounter Details Date Type Department Care Team (Late st Contact Info) Description 04/24[facility]2025 [facility] [address] [place] [address] Zachary Faulkner MD [address] [place] [address] Social History Tobacco Use Types Packs/Day Years [...] How often do you attend chur or adventist services? More than 4 times per year 02/21/2025 Do you belong to any clubs o r organizations such as yazdanism groups, unions, fraternal or athletic groups, or [...] any time in the past 12 m [facility], were you homeless or living in a penitentiary (including now)? No 02/21/2025 Comments Unknown Sex and Gender Information Value Date Recorded Sex Assigned at Not on file Legal Sex Female 9:45 PM EDT Gender Identity Not on file Sexual Orientation Not on file documented as of this encounter Miscellaneous Notes * Telephone Encounter - Zachary Faulkner MD - 04/25/2025 4:41 PM EDT Would need visit and can order MRI. * Telephone Encounter - Ita Clemons - 04/25/2025 1:15 PM EDT Patient called and stated she finished her physical therapy about 3 weeks ago and wondered what sheshould do next. an * Telephone Encounter - Zachary Faulkner MD - 04/25/2025 12:59 PM EDT Unclear etiology of pain and patient needs seen to be appropriately assessed and treated. Try to schedule in office or go to urgent care. * Telephone Encounter - Karma Marshall - 04/24/2025 10:45 AM EDT Left leg is swelling and tingling just above the ankle. She is seeking direction about what to do. documented in this encounter Plan of Treatment Upcoming Encounters Date Type Department Care Team (Late st Contact Info) Description 08/17/2025 11:00 AM EDT Office Visit [facility] [address] [place] [address] Zachary Faulkner MD [address] [place] [address] documented as of this encounter Visit Diagnoses Not on filedocumented in this encounter Care Teams Second Cook And Baker Relationship Specialty Start Date End Date Zachary Faulkner MD [address] [place] [address] PCP - General Family Medicine 07/27/24 Farnaz Turpin NP [address] [place] [address] Nurse Practitioner Family Medicine 07/27/24 documented as of this encounter
--- OUTSIDE RECORDS SUMMARY | 2025-05-18 12:54 | XMS_ITS | Encounter Summary ---
Author Organization [facility] Address [address] [facility] [place] [address] Care Team Providers Care Architecture Professor Name Role Phone Shaikh CHANDA Chapin Primary Care Provider [phone] Zachary Faulkner MD Primary Care Provider [phone] Farnaz Turpin SEISMIC PROSPECTING OBSERVER Unavailable [phone] Encounter Details Date Type Department Care Team (Late st Contact Info) Description 02/02/2024 Clinisync Result Encounter [facility] External Department Unsolicited Shaikh Chapin MD [address] [facility] [place] [address] Social History Tobacco Use Types Packs/Day Years [...] on file documented as of this encounter Functional Status * Over the past 2 weeks, how often have you been bothered by any of the following problems? Question Answer Date of Assessment Author Little interest or pleasure in doing things Not at all 02/02/2024 11:22 AM EDT Margie Martin MA Feeling down, depressed, or hopeless Not at all 02/02/2024 11:22 AM EDT Margie Martin MA Patient Health Questionnaire -2 Score 0 02/02/2024 11:22 AM EDT Margie Martin MA documented as of this encounter Plan of Treatment Upcoming Encounters Date Type Department Care Team (Late st Contact Info) Description 08/17/2025 11:00 AM EDT Office Visit [facility] [address] [place] [address] Zachary Faulkner MD [address] [facility] [place] [phone] documented as of this encounter Procedures Procedure Name Priority Date/Time Associated Diagnosis Comments XR CHEST 2V 02/02/2024 1:08 PM EDT documented in this encounter Results * XR CHEST 2V (02/02/2024 1:08 PM EDT) Anatomical Region Laterality Modality Other 02/02/2024 1:08 PM EDT Narrative 02/02/2024 1:10 PM EDT [address] [address] XRay Report Signed Patient: CATHERINE HODGES MR#: [id number] : 1960 Acct:[id number] Age/Sex: 63 / F ADM Date: 02/02/24 Loc: RAD Attending Dr: Shaikh Tavares Oliver Ordering Physician: Shaikh Benito Chapin Date of Service: 02/02/24 Procedure(s): XR chest 2V Accession Number(s): [id number] cc: Shaikh Benito Chapin [address] [address] Patient Name: CATHERINE HODGES MRN: [id number] date: 1960 Sex: F Assigned Patient Location: RAD Current Patient Location: RAD Accession/Order Number: [id number] Exam Date: 02/02/2024 12:22 Report Date: 02/02/2024 13:08 At the request of: SHAIKH TAVARES Procedure: XR chest 2V EXAM: XR chest 2V HISTORY: non-recurrent acute supportive otitis media both ears . Wheezing and coughing COMPARISON: None. TECHNIQUE: Upright PA and lateral chest x-ray FINDINGS: The heart is not enlarged and the vasculature is not distended. A very small amount of atelectasis or infiltrate is seen at both lung bases. The mid and upper lungs are clear. There is no evidence of an effusion or pneumothorax. The osseous structures are grossly intact. XR/XR chest 2V IMPRESSION: A small amount of atelectasis or infiltrate is seen at the lung bases. There is no evidence of overt cardiac decompensation. Direct comparison with a previous study would be helpful in determining the chronicity of these findings. Electronically authenticated by: OTONIEL DOMINGUEZ Date: 02/02/2024 13:08 Dictated By: Otoniel Dominguez M.D. Signed By: 02/02/24 1310 DD/ 1308 TD/TT: Forming Machine Adjuster: Procedure Note Radiology, Radiologist, MD - 02/02/2024 [place] [address] XRay Report Signed Patient: CATHERINE HODGES JMR#: [id number] : 1960cct:[id number] Age/Sex: 63 / FADM Date: 02/02/24 Loc: RAD Attending Dr: Shaikh Tavares Oliver Ordering Physician: Shaikh Benito Chapin Date of Service: 02/02/24 Procedure(s): XR chest 2V Accession Number(s): [id number] cc: Shaikh Benito Chapin The [place] [address] Patient Name: CATHERINE HODGES MRN: [id number] date: 1960 Sex: F Assigned Patient Location: RAD Current Patient Location: RAD Accession/Order Number: [id number] Exam Date: 02/02/2024 12:22 Report Date: 02/02/2024 13:08 At the request of: SHAIKH TAVARES Procedure: XR chest 2V EXAM: XR chest 2V HISTORY: non-recurrent acute supportive otitis media both ears . Wheezingand coughing COMPARISON: None. TECHNIQUE: Upright PA and lateral chest x-ray FINDINGS: The heart is not enlarged and the vasculature is not distended.A very small amount of atelectasis or infiltrate is seen at both lung bases.The mid and upper lungs are clear. There is no evidence of an effusion or pneumothorax. The osseous structures are grossly intact. XR/XR chest 2V IMPRESSION: A small amount of atelectasis or infiltrate is seen at the lung bases.There is no evidence of overt cardiac decompensation. Direct comparison with aprevious study would be helpful in determining the chronicity of these findings. Electronically authenticated by: OTONIEL DOMINGUEZ Date: 02/02/2024 13:08 Dictated By: Otoniel Dominguez M.D. Signed By:02/02/24 1310 DD/ 1308 TD/TT: Forming Machine Adjuster: Shaikh Tavares [facility] Final Result documented in this encounter Visit Diagnoses Not on filedocumented in this encounter Care Teams Architecture Professor Relationship Specialty Start Date End Date Shaikh Chapin MD [address] [place] [phone] PCP - General Internal Medicine 01/04/24 07/26/24 Zachary Faulkner MD [address] [place] [address] PCP - General Family Medicine 07/27/24 Farnaz Turpin NP [address] [place] [phone] Nurse Practitioner Family Medicine 07/27/24 documented as of this encounter
--- OUTSIDE RECORDS SUMMARY | 2025-05-18 12:54 | XMS_ITS | Encounter Summary ---
Author Organization [facility] Address [address] [place] [address] Care Team Providers Care Application Support Administrator Name Role Phone Shaikh CHANDA Chapin Primary Care Provider [phone] Zachary Faulkner MD Primary Care Provider [phone] Farnaz Turpin GLOBAL UPSTREAM MARKETING MANAGER Unavailable [phone] Encounter Details Date Type Department Care Team (Late st Contact Info) Description 05/24/2024 Clinisync Result Encounter [facility] External Department Unsolicited Shaikh Chapin MD [address] [place] [phone] Social History Tobacco Use Types Packs/Day Years [...] 08/17/2025 11:00 AM EDT Office Visit [facility] [address] [place] [address] Zachary Faulkner MD [address] [place] [address] documented as of this encounter Procedures Procedure Name Priority Date/Time Associated Diagnosis Comments XR DEXA AXIAL SKELETON 05/24/2024 10:18 AM EDT documented in this encounter Results * XR DEXA AXIAL SKELETON (05/24/2024 10:18 AM EDT) Anatomical Region Laterality Modality Other 05/24/2024 10:1 8 AM EDT Narrative 05/24/2024 10:20 AM EDT The [address] [address] XRay Report Signed Patient: CATHERINE HODGES MR#: [id number] : 1960 Acct:[id number] Age/Sex: 63 / F ADM Date: 05/24/24 Loc: CT Attending Dr: Shaikh Tavares Oliver Ordering Physician: Shaikh Benito Chapin Date of Service: 05/24/24 Procedure(s): XR DEXA axial skeleton Accession Number(s): [id number] cc: Shaikh Benito Chapin The [address] [address] Patient Name: CATHERINE HODGES MRN: [id number] date: 1960 Sex: F Assigned Patient Location: CT Current Patient Location: CT Accession/Order Number: [id number] Exam Date: 05/24/2024 09:10 Report Date: 05/24/2024 10:18 At the request of: SHAIKH TAVARES Procedure: XR DEXA axial skeleton EXAMINATION: XR DEXA axial skeleton HISTORY: Osteoporosis COMPARISON: DEXA bone densitometry 04/02/2021 TECHNIQUE: Dual-energy X-ray absorptiometry (DXA) was performed. FINDINGS: SPINE ANALYSIS: Average bone mineral density is 1.536 g/cm2. T-score (standard deviation relative to young adult mean): 3.0 . +5.3% change since prior study. HIP ANALYSIS: Lowest bone mineral density is within the left femoral neck, 0.872 g/cm2. T-score (standard deviation relative to young adult mean): -1.2 . -2.6% change since prior study. XR/XR DEXA axial skeleton IMPRESSION: World Health Organization Classification: Osteopenia - Moderate Fracture Risk FRAX: Cannot calculate. Pharmacologic treatment recommendations * No uniform recommendation applies to all patients. Management plans must be individualized. * Consider initiating pharmacologic treatment in postmenopausal women and men >= 50 years of age who have the following: Primary fracture prevention: * T-score <= - 2.5 at the femoral neck, total hip, lumbar spine, 33% radius (some uncertainty with existing data) by DXA. * Low bone mass (osteopenia: T-score between - 1.0 and - 2.5) at the femoral neck or total hip by DXA with a 10-year hip fracture risk >= 3% or a 10-year major osteoporosis-related fracture risk >= 20% (i.e., clinical vertebral, hip, forearm, or proximal humerus) based on the [place]-adapted FRAXregistered model. Secondary fracture prevention: * Fracture of the hip or vertebra regardless of BMD [4, 5]. * Fracture of proximal humerus, pelvis, or distal forearm in persons with low bone mass (osteopenia: T-score between - 1.0 and - 2.5). The decision to treat should be individualized in persons with a fracture of the proximal humerus, pelvis, or distal forearm who do not have osteopenia or low BMD [12, 13]. Haylee MS, Chris SL, Anival KL, Deven EM, Balwinder KG, AJ, Justo ES. The clinician's guide to prevention and treatment of osteoporosis. Osteoporos Int. 2021;33(10):5147-4029. doi: 10.1007/y32923-134-78625-x. Epub 2021Feb 27. Erratum in: Osteoporos Int. 2021May 29;: PMID: 13851719; PMCID: [id number]. Electronically authenticated by: SHAHID MOLINA Date: 05/24/2024 10:18 Dictated By: Shahid Molina M.D. Signed By: 05/24/24 1020 DD/ 1018 TD/TT: Floriculture Professor: Procedure Note Radiology, Radiologist, - 05/24/2024 The [place] [id number] XRay Report Signed Patient: CATHERINE HODGES JMR#: [id number] : 1960cct:[id number] Age/Sex: 63 / FADM Date: 05/24/24 Loc: CT Attending Dr: Shaikh Tavares Oliver Ordering Physician: Shaikh Benito Chapin Date of Service: 05/24/24 Procedure(s): XR DEXA axial skeleton Accession Number(s): [id number] cc: Shaikh Benito Chapin The [place] [id number] Patient Name: CATHERINE HODGES MRN: [id number] date: 1960 Sex: F Assigned Patient Location: CT Current Patient Location: CT Accession/Order Number: [id number] Exam Date: 05/24/2024 09:10 Report Date: 05/24/2024 10:18 At the request of: SHAIKH TAVARES Procedure: XR DEXA axial skeleton EXAMINATION: XR DEXA axial skeleton HISTORY: Osteoporosis COMPARISON: DEXA bone densitometry 04/02/2021 TECHNIQUE: Dual-energy X-ray absorptiometry (DXA) was performed. FINDINGS: SPINE ANALYSIS: Average bone mineral density is 1.536 g/cm2. T-score (standard deviation relative to young adult mean): 3.0 . +5.3% change since prior study. HIP ANALYSIS: Lowest bone mineral density is within the left femoral neck, 0.872 g/cm2. T-score (standard deviation relative to young adult mean): -1.2 . -2.6% change since prior study. XR/XR DEXA axial skeleton IMPRESSION: World Health Organization Classification: Osteopenia - Moderate FractureRisk FRAX: Cannot calculate. Pharmacologic treatment recommendations * No uniform recommendation applies to all patients. Management plans mustbe individualized. * Consider initiating pharmacologic treatment in postmenopausal women andmen >= 50 years of age who have the following: Primary fracture prevention: * T-score <= - 2.5 at the femoral neck, total hip, lumbar spine, 33%radius (some uncertainty with existing data) by DXA. * Low bone mass (osteopenia: T-score between - 1.0 and - 2.5) at thefemoral neck or total hip by DXA with a 10-year hip fracture risk >= 3% or u44-coln major osteoporosis-related fracture risk >= 20% (i.e., clinical vertebral, hip, forearm, or proximal humerus) based on the [place]-adapted FRAXregisteredmodel. Secondary fracture prevention: * Fracture of the hip or vertebra regardless of BMD [4, 5]. * Fracture of proximal humerus, pelvis, or distal forearm in persons withlow bone mass (osteopenia: T-score between - 1.0 and - 2.5). The decision totreat should be individualized in persons with a fracture of the proximalhumerus, pelvis, or distal forearm who do not have osteopenia or low BMD [12, 13]. Haylee MS, Chris SL, Anival KL, Deven EM, Balwinder KG, AJ,Justo ES. The clinician's guide to prevention and treatment of osteoporosis.Osteoporos Int. 2021;33(10):2110-2558. doi: 10.1007/c89366-782-15952-i. Ep. Erratum in: Osteoporos Int. 2021May 29;: PMID: 74882573; PMCID: [id number]. Electronically authenticated by: SHAHID MOLINA Date: 05/24/2024 10:18 Dictated By: Shahid Molina M.D. Signed By:05/24/24 1020 DD/ 1018 TD/TT: Floriculture Professor: us Shaikh Tavares [facility] Final Result documented in this encounter Visit Diagnoses Not on filedocumented in this encounter Care Teams Application Support Administrator Relationship Specialty Start Date End Date Shaikh Chapin MD [address] [place] [address] PCP - General Internal Medicine 01/04/24 07/26/24 Zachary Faulkner MD [address] [place] [address] PCP - General Family Medicine 07/27/24 Farnaz Turpin NP [address] [place] [address] Nurse Practitioner Family Medicine 07/27/24 documented as of this encounter
--- OUTSIDE RECORDS SUMMARY | 2025-05-18 12:54 | XMS_ITS | Clinical Summary ---
Author Organization [facility] Address [address] [facility] [place] [address] Care Team Providers Care Agricultural Agent Name Role Phone Zachary Aldana MD Primary Care Provider [phone] Farnaz Turpin PERSONAL FITNESS MANAGER Unavailable [phone] Allergies Active Allergy Reactions Criticality Noted Date Comments Clindamycin Hives Medium 01/04/2024 Cephalexin Hives Medium 01/04/2024 Medications atorvastatin (Lipitor) 10 MG tabletIndications:H yperlipidemia, unspecified hyperlipidemia type Take 1 tablet (10 mg) by mouth Daily 90 tablet 1 5 Active alendronate (Fosamax) 70 MG tabletIndications:O steopenia after menopause Take 1 tablet (70 mg) by mouth every 7 (seven) days Take in the morning with a full glass of water, on an empty stomach, and do not take anything else by mouth or lie down for the next 30 min. 12 tablet 1 5 07/05/20 25 Active nabumetone (Relafen) 500 MG tabletIndications:C hronic bilateral low back pain with right-sided sciatica Take 1 tablet (500 mg) by mouth 2 (two) times a day as needed for moderate pain or mild pain 60 tablet 3 5 Active methocarbamol (Robaxin) 750 MG tabletIndications:C hronic bilateral low back pain with right-sided sciatica Take 1 tablet (750 mg) by mouth 4 (four) times a day as needed for muscle spasms 60 tablet 2 5 Active omeprazole (PriLOSEC) [address] capsuleIndications: Gastroesophageal reflux disease without esophagitis Take 1 capsule (40 mg) by mouth in the morning and 1 capsule (40 mg) in the evening. Take before meals. 180 capsule 3 5 Active levothyroxine (Synthroid, Levoxyl) 100 MCG tabletIndications:O ther specified hypothyroidism Take 1 tablet (100 mcg) by mouth Daily 90 tablet 5 Active Active Problems Problem Noted Date Diagnosed Date Globus sensation 05/10/2025 Assessment & Plan (05/10/2025 11:13 AM EDT): Symptoms unchanged with omeprazole and refer to GI. Degeneration of intervertebr al disc of lumbar region with discogenic back pain 02/23/2025 Assessment & Plan (05/10/2025 11:13 AM EDT): Continued pain and minimal improvement with PT. X-ray with DDD and pain limiting activity. Check MRI and will need referral to pain management or neurosurgery based on results. Assessment & Plan (02/23/2025 10:59 AM EDT): Pain and radicular symptoms worse. Check x-ray and start PT. Start relafen for pain and robaxin for spasms. If no improvement will need MRI. Class 2 severe obesity due t o excess calories with serious comorbidity and body mass index (BMI) of 36.0 to 36.9 in adult 02/23/2025 Assessment & Plan (02/23/2025 11:00 AM EDT): Weight loss indicated. Gastroesophageal reflux disease 02/15/2024 Assessment & Plan (05/10/2025 11:13 AM EDT): Symptoms unchanged with omeprazole and refer to GI. Assessment & Plan (02/23/2025 10:59 AM EDT): Symptoms worse and increase omeprazole. If no improvement will need repeat EGD. Assessment & Plan (11/30/2024 1:20 PM EST): Currently taking Omeprazole daily States symptoms have improved significantly. Reports no breakthrough heartburn episodes. Assessment & Plan (05/17/2024 1:20 PM EDT): Uses omeprazole daily. Patient asked if she could use it as needed. She will see if she can go without using it daily. Osteopenia of left femoral neck 02/15/2024 Assessment & Plan (05/17/2024 1:23 PM EDT): Osteoporosis noted DEXA scan 04/22 ; currently on alendronate, calcium and Vit D Repeat DEXA scan Assessment & Plan (02/15/2024 2:41 PM EDT): On DEXA scan 04/22 on alendronate, calcium and Vit D Hypothyroidism in adult 01/04/2024 Assessment & Plan (05/17/2024 1:21 PM EDT): TSH at goal. 05/25 C/w levothyroxine 100 mcg Assessment & Plan (02/15/2024 2:41 PM EDT): TSH at goal. 12/22/23 C/w levothyroxine 100 mcg - Check TSH Before next appointment Assessment & Plan (01/04/2024 2:46 PM EST): TSH at goal. 2 C/w levothyroxine 100 mcg - was increased due to elevated TSH on previous lab measurement Dyslipidemia 01/04/2024 Assessment & Plan (02/23/2025 11:00 AM EDT): Repeat labs next visit. Assessment & Plan (11/30/2024 1:21 PM EST): Currently taking Denies any myalgias. Continue current regimen. Most recent Lipid Panel 05/2024 WNL Assessment & Plan (05/17/2024 1:21 PM EDT): On lipitor. Lipid panel 12/26 at goal Check before next appointment. Assessment & Plan (02/15/2024 2:42 PM EDT): On lipitor. Lipid panel 12/26 at goal Calculus of gallbladder with out cholecystitis without obstruction 01/04/[address] nodules on CT 01/04/2024 Assessment & Plan (05/17/2024 1:19 PM EDT): Noted on CT chest 12/2022 - Will repeat now as more than a year to ensure stability. Former smoker - about 20 pack year smoking hx. Assessment & Plan (01/04/2024 2:46 PM EST): Stable in CT chest 12/2022 - repeat needed in 2023 Former smoker. Former smoker 01/04/2024 Resolved Problems Problem Noted Date Diagnosed Date Resolved Date Viral upper respiratory tract infection 11/30/2024 02/23/2025 Assessment & Plan (11/30/2024 1:25 PM EST): Runny nose Sneezing Sinus congestion Ear pain Headache Ongoing 3 days. Discussed likely viral etiology,. Will treat with Flonase/Zyrtec/conservative measures. Well adult exam 05/17/2024 02/23/2025 Assessment & Plan (05/17/2024 1:21 PM EDT): Patient here for Annual Wellness Exam. Reviewed medical, surgical and social hx. Reviewed medication list. Health related questions and concerns addressed and answered. Patient provided appropriate education on chronic medical conditions and prescription medications. Non-recurrent acute suppurat bogdan otitis media of both ears without spontaneous rupture of tympanic membranes 02/03/2024 02/23/2025 Wheezing-associated respiratory infection 02/03/2024 02/23/2025 Respiratory illness with fever 02/03/2024 02/23/2025 Dyspepsia 01/04/2024 05/10/2025 Cellulitis of face 01/04/2024 Assessment & Plan (01/04/2024 2:47 PM EST): ED visit for it on 12/27 - resolved now. Using bactrim DS No pain, erythema noted today on exam Osteopenia after menopause 11/18/2023 0 02/23/2025 Encounters Date Type Department Care Team Description 05/17/2025 Refill [facility] [address] [place] [address] Zachary Aldana MD 05/10/2025 10:45 AM EDT Office Visit [facility] [address] [place] [phone] Zachary Aldana MD Degeneration of intervertebral disc of lumbar region with discogenic back pain (Primary Dx); Gastroesophageal reflux disease without esophagitis; Globus sensation 05/10/2025 Orders Only [facility] [address] [place] [address] Zachary Aldana MD 05/10/2025 Bamboo flowsheet [facility] [address] [place] [address] Zachary Aldana MD 04/26/2025 Results Follow-Up [facility] [address] [place] [phone] Mirian Saha MA 04/25/2025 4:30 PM EDT Ancillary Procedure [facility] [address] [place] [address] Left knee pain, unspecified chronicity 04/25/2025 4:20 PM EDT Office Visit [facility] [address] [place] [phone] Leroy Zacarias, DO Strain of left calf muscle (Primary Dx); Left knee pain, unspecified chronicity 04/25/2025 Travel 04/24/2025 Telephone [facility] [address] [place] [address] Zachary Aldana MD 02/27/2025 Refill [facility] [address] [place] [address] Zachary Aldana MD Other specified hypothyroidism 02/24/2025 Abstract [facility] [address] [place] [address] Zachary Aldana MD 02/23/2025 10:15 AM EDT Office Visit [facility] [address] [place] [phone] Zachary Aldana MD Chronic bilateral low back pain with right-sided sciatica (Primary Dx); Gastroesophageal reflux disease without esophagitis; Class 2 severe obesity due to excess calories with serious comorbidity and body mass index (BMI) of 36.0 to 36.9 in adult ([facility]); Dyslipidemia 02/23/2025 Results Follow-Up [facility] [address] [place] [address] Zachary Aldana MD 02/23/2025 Orders Only [facility] [address] [place] [address] Zachary Aldana MD 02/23/2025 Clinisync Result Encounter [facility] External Department Unsolicited Zachary Aldana MD 02/23/2025 Bamboo flowsheet [facility] [address] [place] [address] Zachary Aldana MD 02/21/2025 Travel from Last 3 Months Immunizations Immunization Administration Dates Next Due Influenza, Seasonal, Quadriv alent, Adjuvanted 08/24/2023 Influenza, injectable, quadrivalent 08/04/2020,1 Influenza, injectable, quadr ivalent, preservative free 09/16/2022,08/19/2021,08/21/2017 Influenza, seasonal, injectable 10/17/2013 SARS-COV-2 (COVID-19) vaccin e, mRNA, spike protein, LNP, PF, daysi-sucrose, 30 mcg/0.3 mL 08/24/2023 Zoster, Recombinant 04/08/2023,02/04/2023 Family History Medical History Relation Name Comments Respiratory illness Father cause of Diabetes Mother Heart disease Mother Hypertension Mother Respiratory illness Mother cause of Relation Name Status Comments Brother x3 Daughter Alive Father Mother Other Alive Sister x2 Son Alive Social History Tobacco Use Types Packs/Day Years Used Date Smoking Tobacco: Never Passive Smoke Exposure: Never Smokeless Tobacco: Never Tobacco Cessation:Counseling Given: Not Answered Alcohol Use Standard Drinks/Week Comments Yes 0 [...] How often do you attend chur or rastafarian services? More than 4 times per year 02/21/2025 Do you belong to any clubs o r organizations such as gnosticist groups, unions, fraternal or athletic groups, or [...] any time in the past 12 m [facility], were you homeless or living in a prison (including now)? No 02/21/2025 Comments Unknown Sex and Gender Information Value Date Recorded Sex Assigned at Not on file Legal Sex Female 9:45 PM EDT Gender Identity Not on file Sexual Orientation Not on file Last Filed Vital Signs Vital Sign Reading [...] Mass Index 37.28 05/10/2025 10:50 AM EDT Plan of Treatment Upcoming Encounters Date Type Department Care Team (Late st Contact Info) Description 08/17/2025 11:00 AM EDT Office Visit [facility] [address] [place] [address] Zachary Aldana MD [address] [place] [phone] Health Maintenance Due Date Last Done Comments CT Colonography 1959 FIT-DNA 1959 FIT 1959 FOBT 1960 Sigmoidoscopy 1960 Pap Smear 1980 HPV/Cotest 1989 Pneumococcal Vaccine: 65+ Years (1 of 1 - PCV) 2009 Influenza Vaccine (#1) 2025 , 08/24/2023, 09/16/2022, Additional history exists Cervical Cancer Screening 11/30/2025 Po stponed from 1989 (Patient Refused) Mammogram 12/16/2025 12/16/2024, 10/06/2023 Colonoscopy 06/12/2031 06/12/2021, 11/02/2020 Colorectal Cancer Screening 06/12/2031 Procedures Procedure Name Priority Date/Time Associated Diagnosis Comments SCANNED LABS Routine 05/10/2025 11:30 AM EDT VASC US LOWER EXTREMITY VENOUS DUPLEX LEFT Routine 04/25/2025 4:57 PM EDT Left knee pain, unspecified chronicity XR LUMBAR SPINE 2 OR 3V 02/23/2025 1:52 PM EDT MM TOMOSYNTHESIS SCREENING BI 12/16/2024 11:30 AM EST from Last 3 Months or Most Recently Relevant to Health Maintenance Results * SCANNED LABS (05/10/2025 11:30 AM EDT) Zachary Aldana MD LAB CHG PERFORMABLES Final Resul t * Vascular US lower extremity venous duplex left (04/25/2025 4:57 PM EDT) Anatomical Region Laterality Modality Lower Extremities Ultrasound 04/26/2025 7:45 AM EDT Narrative 04/26/2025 7:45 AM EDT EXAM: VASC US LOWER EXTREMITY VENOUS DUPLEX LEFT HISTORY: Left lower extremity swelling x 1 week. COMPARISON: None available. TECHNIQUE: Two-dimensional grayscale, color and spectral Doppler ultrasound imaging of the left lower extremity was performed. FINDINGS: The left lower extremity deep venous system was interrogated from the common femoral vein through the posterior tibial veins. The visualized deep calf veins are unremarkable. There is no evidence of an intraluminal filling defect. Normal compression and augmentation are noted throughout. Soft tissues are unremarkable. IMPRESSION: 1. Negative for left lower extremity DVT. Interpreted by: Electronically signed by TANNER HERRERA II, MD, PHD at 26-Apr-2025 07:44:18 AM [facility] Procedure Note Tanner Herrera MD - 04/26/2025 EXAM: VASC US LOWER EXTREMITY VENOUS DUPLEX LEFT HISTORY: Left lower extremity swelling x 1 week. COMPARISON: None available. TECHNIQUE: Two-dimensional grayscale, color and spectral Dopplerultrasound imaging of the left lower extremity was performed. FINDINGS: The left lower extremity deep venous system was interrogated from thecommon femoral vein through the posterior tibial veins. The visualizeddeep calf veins are unremarkable. There is no evidence of an intraluminalfilling defect. Normal compression and augmentation are noted throughout. Soft tissues are unremarkable. IMPRESSION: 1. Negative for left lower extremity DVT. Interpreted by: Electronically signed by TANNER HERRERA II, MD, PHD [id number] 07:44:18 AM [facility] Leroy Zacarias DO IMG US PROCEDURES Final Res ult * XR LUMBAR SPINE 2 OR 3V (02/23/2025 1:52 PM EDT) Anatomical Region Laterality Modality Radiographic Catherine ging 02/23/2025 1:52 PM EDT Narrative 02/23/2025 1:55 PM EDT [address] [address] XRay Report Signed Patient: CATHERINE SHEIKH MR#: [id number] : 1960 Acct:[id number] Age/Sex: 64 / F ADM Date: 02/23/25 Loc: RAD Attending Dr: Zachary Aldana M.D. Ordering Physician: Zachary Aldana M.D. Date of Service: 02/23/25 Procedure(s): XR lumbar spine 2-3V Accession Number(s): [id number] cc: Zachary Aldana M.D. [address] [address] Patient Name: CATHERINE SHEIKH MRN: [id number] date: 1960 Sex: F Assigned Patient Location: [facility] Current Patient Location: [facility] Accession/Order Number: [id number] Exam Date: 02/23/2025 13:52 Report Date: 02/23/2025 13:52 At the request of: ZACHARY ALDANA MD Procedure: XR lumbar spine 2-3V LUMBAR SPINE - 3 views CLINICAL HISTORY: Chronic Bilateral Low Back Pain With Right Sciatica COMPARISON: None FINDINGS: Vertebral body heights appear maintained. Diffuse facet joint degenerative changes. Mild endplate degenerative changes. No significant disc height loss. XR/XR lumbar spine 2-3V IMPRESSION: FACET AND ENDPLATE DEGENERATIVE CHANGES WITHOUT SIGNIFICANT DISC HEIGHT LOSS. Impression dictated by: Cesar Rose Jr., D.O.02/23/2025 1:52 PM Dictation Location: [place] [address] Electronically authenticated by: [id number] Y Date: 02/23/2025 13:52 Dictated By: Cesar Rose M.D. Signed By: 02/23/25 1358 DD/ 1352 TD/TT: Senior Sales Representative: Procedure Note Radiology, Radiologist, MD - 02/23/[address] [address] XRay Report Signed Patient: CATHERINE SHEIKH JMR#: [id number] : 1960cct:[id number] Age/Sex: 64 / FADM Date: 02/23/25 Loc: RAD Attending Dr: Zachary Aldana M.D. Ordering Physician: Zachary Aldana M.D. Date of Service: 02/23/25 Procedure(s): XR lumbar spine 2-3V Accession Number(s): [id number] cc: Zachary Aldana M.D. The [place] [address] Patient Name: CATHERINE SHEIKH MRN: [id number] date: 1960 Sex: F Assigned Patient Location: [facility] Current Patient Location: [facility] Accession/Order Number: [id number] Exam Date: 02/23/2025 13:52 Report Date: 02/23/2025 13:52 At the request of: ZACHARY ALDANA MD Procedure: XR lumbar spine 2-3V LUMBAR SPINE - 3 views CLINICAL HISTORY: Chronic Bilateral Low Back Pain With Right Sciatica COMPARISON: None FINDINGS: Vertebral body heights appear maintained. Diffuse facet joint degenerative changes. Mild endplate degenerative changes. No significant disc height loss. XR/XR lumbar spine 2-3V IMPRESSION: FACET AND ENDPLATE DEGENERATIVE CHANGES WITHOUT SIGNIFICANT DISC HEIGHTLOSS. Impression dictated by: Cesar Rose Jr., DAdiOAdi02/23/2025 1:52 PM Dictation Location: [place] [address] Electronically authenticated by: [id number] Y Date: 3:52 Dictated By: Cesar Rose M.D. Signed By:02/23/25 1352 DD/ 1352 TD/TT: Senior Sales Representative: Zachary Aldana MD IMG XR PROCEDURES Final Result * MM TOMOSYNTHESIS SCREENING BI (12/16/2024 11:30 AM EST) Anatomical Region Laterality Modality Other 12/16/2024 11:3 0 AM EST Narrative 12/16/2024 11:31 [place] [address] Mammography Report Signed Patient: CATHERINE SHEIKH MR#: [id number] : 1960 Acct:[id number] Age/Sex: 64 / F ADM Date: 12/15/24 Loc: MAMMO Attending Dr: FARNAZ TURPIN Ordering Physician: FARNAZ TURPIN Results: Date of Service: 12/15/24 Follow Up: Procedure(s): MM tomosynthesis screening BI Accession Number(s): [id number] cc: FARNAZ TURPIN Patient Name: CATHERINE SHEIKH MR#: [id number] : 1960 Exam Date: 12/15/2024 Ordering Doctor: FARNAZ TURPIN RADIOLOGY REPORT PROCEDURE: MM TOMOSYNTHESIS SCREENING BI COMPARISON: MM TOMOSYNTHESIS SCREENING BI, 10/06/2023. MG MAMM SCREEN 3D MEKA CAD, 09/24/2022. MG MAMM SCREEN 3D MEKA CAD, 04/16/2021. MG MAMM MEKA SCRN W CAD DIG, 05/31/2013. INDICATIONS: Screening Calculator Name NCI Breast Cancer Risk Assessment Tool 5 Year Breast Cancer Risk 1.60% Lifetime Breast Cancer Risk 6.10% Personal Breast Cancer No Personal Ovarian Cancer No Treatments None Family Cancers Grandmother-paternal with breast cancer at age 70. LOCATION: [facility] BREAST COMPOSITION: There are scattered areas of fibroglandular density. FINDINGS: DIAGNOSTIC CATEGORY 1--NEGATIVE. RIGHT BREAST: No significant suspicious finding. No significant change has occurred. LEFT BREAST: No significant suspicious finding. No significant change has occurred. RECOMMENDATIONS: ROUTINE MAMMOGRAM AND CLINICAL EVALUATION IN 12 MONTHS. PLEASE NOTE: A NORMAL MAMMOGRAM DOES NOT EXCLUDE THE POSSIBILITY OF BREAST CANCER. A CLINICALLY SUSPICIOUS PALPABLE LUMP SHOULD BE BIOPSIED. Dictated by: Shahid Molina M.D. on 12/16/2024 at 11:28 Approved by: Shahid Molina M.D. on 12/16/2024 at 11:30 Dictated By: Shahid Molina M.D. Signed By: 12/16/24 1131 DD/ 1130 TD/TT: Senior Sales Representative: Procedure Note Radiology, Radiologist, MD - 12/16/2024 [place] [address] Mammography Report Signed Patient: CATHERINE SHEIKH JMR#: [id number] : 9Acct:[id number] Age/Sex: 64 / FADM Date: 12/15/24 Loc: MAMMO Attending Dr: FARNAZ TURPIN Ordering Physician: Jennifer TURPINults: Date of Service: 12/15/24Follow Up: Procedure(s): MM tomosynthesis screening BI Accession Number(s): [id number] cc: FARNAZ TURPIN Patient Name: CATHERINE SHEIKH MR#: [id number] : 1960 Exam Date: 12/15/2024 Ordering Doctor: FARNAZ TURPIN RADIOLOGY REPORT PROCEDURE: MM TOMOSYNTHESIS SCREENING BI COMPARISON: MM TOMOSYNTHESIS SCREENING BI, 10/06/2023. MG MAMM [id number] MEKA CAD, 09/24/2022. MG MAMM SCREEN 3D MEKA CAD, 04/16/2021. MG MAMM BILSCRN W CAD DIG, 05/31/2013. INDICATIONS: Screening Calculator Name NCI Breast Cancer Risk Assessment Tool 5 Year Breast Cancer Risk 1.60% Lifetime Breast Cancer Risk 6.10% Personal Breast Cancer No Personal Ovarian Cancer No Treatments None Family Cancers Grandmother-paternal with breast cancer at age 70. LOCATION: [facility] BREAST COMPOSITION: There are scattered areas of fibroglandulardensity. FINDINGS: DIAGNOSTIC CATEGORY 1--NEGATIVE. RIGHT BREAST: No significant suspicious finding. No significant changehas occurred. LEFT BREAST: No significant suspicious finding. No significant changehas occurred. RECOMMENDATIONS: ROUTINE MAMMOGRAM AND CLINICAL EVALUATION IN 12 MONTHS. PLEASE NOTE: A NORMAL MAMMOGRAM DOES NOT EXCLUDE THE POSSIBILITY OFBREAST CANCER. A CLINICALLY SUSPICIOUS PALPABLE LUMP SHOULD BE BIOPSIED. Dictated by: Shahid Molina M.D. on 12/16/2024 at 11:28 Approved by: Shahid Molina M.D. on 12/16/2024 at 11:30 Dictated By: Shahid Molina M.D. Signed By:12/16/24 1131 DD/ 1130 TD/TT: Senior Sales Representative: Farnaz Turpin NP [facility] Final Result from Last 3 Months or Most Recently Relevant to Health Maintenance [place] [address] [employer] Care Teams Agricultural Agent Relationship Specialty Start Date End Date Zachary Aldana MD [address] [place] [address] PCP - General Family Medicine 07/27/24 Farnaz Turpin NP [address] [place] [address] Nurse Practitioner Family Medicine 07/27/24
--- OUTSIDE RECORDS SUMMARY | 2025-05-18 12:54 | XMS_ITS | Encounter Summary ---
Author Organization [facility] Address [address] [facility] [place] [address] Care Team Providers Care Direct Casting Operator Name Role Phone Zachary Faulkner MD Primary Care Provider [phone] Farnaz Turpin SPECIMEN COLLECTOR Unavailable [phone] Encounter Details Date Type Department Care Team (Late st Contact Info) Description 05/10/2025 Orders Only [facility] [address] [place] [address] Zachary Faulkner MD [address] [place] [address] Social History Tobacco Use Types Packs/Day Years [...] often do you attend chur ch or scientologist services? More than 4 times per year 02/21/2025 Do you belong to any clubs o r organizations such as advent groups, unions, fraternal or athletic groups, or [...] any time in the past 12 m [facility], were you homeless or living in a long-term (including now)? No 02/21/2025 Comments Unknown Sex [...] Office Visit [facility] [address] [place] [address] Zachary Faulkner MD [address] [place] [address] documented as of this encounter Procedures Procedure Name Priority Date/Time Associated Diagnosis Comments SCANNED LABS Routine 05/10/2025 11:30 AM EDT documented in this encounter Results * SCANNED LABS (05/10/2025 11:30 AM EDT) Zachary Faulkner MD LAB CHG PERFORMABLES Final Resul t documented in this encounter Visit Diagnoses Not on filedocumented in this encounter Care Teams Direct Casting Operator Relationship Specialty Start Date End Date Zachary Faulkner MD [address] [place] [address] PCP - General Family Medicine 07/27/24 Farnaz Turpin NP [address] [place] [address] Nurse Practitioner Family Medicine 07/27/24 documented as of this encounter
--- OUTSIDE RECORDS SUMMARY | 2025-05-18 12:54 | XMS_ITS | Encounter Summary ---
Author Organization [facility] Address [address] [facility] [place] [address] Care Team Providers Care Overlock Elastic Attacher Name Role Phone Zachary Faulkner MD Primary Care Provider [phone] Farnaz Tuprin DISTRIBUTION SPECIALIST Unavailable [phone] Reason for Visit * Reason Onset Date Comments Med Refill 05/17/2025 Encounter Details Date Type Department Care Team (Late st Contact Info) Description 05/17/2025 [facility] [address] [place] [address] Zachary Faulkner MD [address] [place] [address] Social History Tobacco Use Types Packs/Day Years [...] How often do you attend chur or taoism services? More than 4 times per year 02/21/2025 Do you belong to any clubs o r organizations such as anabaptist groups, unions, fraternal or athletic groups, or [...] any time in the past 12 m [facility], were you homeless or living in [...] Office Visit [facility] [address] [place] [address] Zachary Faulkner MD [address] [place] [address] documented as of this encounter Visit Diagnoses Not on filedocumented in this encounter Care Teams Overlock Elastic Attacher Relationship Specialty Start Date End Date Zachary Faulkner MD [address] [place] [address] PCP - General Family Medicine 07/27/24 Farnaz Turpin NP [address] [place] [address] Nurse Practitioner Family Medicine 07/27/24 documented as of this encounter
--- OUTSIDE RECORDS SUMMARY | 2025-05-18 12:54 | XMS_ITS | Encounter Summary ---
Author Organization [facility] Address [address] [facility] [place] [address] Care Team Providers Care Link Assembler Name Role Phone Zachary Faulkner MD Primary Care Provider [phone] Farnaz Turpin HANDLE SANDER OPERATOR Unavailable [phone] Encounter Details Date Type Department Care Team (Late st Contact Info) Description 04/26/2025 Results Follow-Up [facility] [address] [facility] [address] [place] [address] Mirian Saha MA Social History Tobacco Use Types Packs/Day Years [...] often do you attend chur ch or quaker services? More than 4 times per year 02/21/2025 Do you belong to any clubs o r organizations such as yarsani groups, unions, fraternal or athletic groups, or [...] time in the past 12 m [facility], were you homeless or living in a alf (including now)? No 02/21/2025 Comments Unknown Sex and Gender Information Value Date Recorded Sex Assigned at Not on file Legal Sex Female 9:45 PM EDT Gender Identity Not on file Sexual Orientation Not on file documented as of this encounter Miscellaneous Notes * Telephone Encounter - Jani Casas MA - 04/26/2025 9:53 AM EDT Contacted pt went over results above, pt understood and had no further questions at the time of call. * Telephone Encounter - Jani Casas MA - 04/26/2025 9:53 AM EDT ----- Message from Mirian Saha MA sent at 04/26/2025 9:12 AM EDT ----- * Telephone Encounter - Mirian Saha MA - 04/26/2025 9:[address] Zacarias Ultrasound results came back negative, Negative for left lower extremity DVT. Take OTC advil as directed at time of visit, and follow up with PCP. documented in this encounter Plan of Treatment Upcoming Encounters Date Type Department Care Team (Late st Contact Info) Description 08/17/2025 11:00 AM EDT Office Visit [facility] [address] [place] [address] Zachary Faulkner MD [address] [place] [address] documented as of this encounter Visit Diagnoses Not on filedocumented in this encounter Care Teams Link Assembler Relationship Specialty Start Date End Date Zachary Faulkner MD [address] [place] [address] PCP - General Family Medicine 07/27/24 Farnaz Turpin NP [address] [place] [address] Nurse Practitioner Family Medicine 07/27/24 documented as of this encounter
--- OUTSIDE RECORDS SUMMARY | 2025-05-18 12:54 | XMS_ITS | Encounter Summary ---
Author Organization [facility] Address [address] [facility] [place] [address] Care Team Providers Care Bone Crusher Name Role Phone Zachary Faulkner MD Primary Care Provider [phone] Farnaz Turpin JIGGER MACHINE OPERATOR Unavailable [phone] Encounter Details Date Type Department Care Team (Late st Contact Info) Description 05/10/2025 Bamboo flowsheet [facility] [address] [place] [address] Zachary Faulkner MD [address] [place] [address] Social History Tobacco Use Types Packs/Day Years [...] How often do you attend chur or hindu services? More than 4 times per year 02/21/2025 Do you belong to any clubs o r organizations such as buddhism groups, unions, fraternal or athletic groups, or [...] any time in the past 12 m [facility], were you homeless or living in [...] Office Visit [facility] [address] [place] [address] Zachary Faulkner MD [address] [place] [address] documented as of this encounter Visit Diagnoses Not on filedocumented in this encounter Care Teams Bone Crusher Relationship Specialty Start Date End Date Zachary Faulkner MD [address] [place] [address] PCP - General Family Medicine 07/27/24 Farnaz Turpin NP [address] [place] [address] Nurse Practitioner Family Medicine 07/27/24 documented as of this encounter
--- NOTE | 2025-05-18 12:55 | MR_ITS ---
The [address] [address] Patient Name: JUNI HODGES MRN: [id number] date: 1960 Sex: F Assigned Patient Location: MRI Current Patient Location: Accession/Order Number: [id number] Exam Date: 05/19/2025 00:04 Report Date: 05/19/2025 00:08 At the request of: VASU ALDANA MD Procedure: MR lumbar spine wo con MR lumbar spine wo con 05/18/2025 1:37 PM SIGNS AND SYMPTOMS: Chronic low back pain radiating into lower extremities, right greater than left PROTOCOL: Multiplanar multisequence MR images of the lumbar spine without IV contrast COMPARISON: None. FINDINGS: The bones of the lumbar spine are in anatomic alignment. There is preservation of vertebral body heights and intervertebral disc spaces. The marrow signal is within normal limits. The conus terminates at the superior endplate of the L2 vertebral body level. No epidural or paraspinous fluid collection is appreciated. At T12-L1: There is a normal disc, central canal, and neural foramen. At L1-L2: Facet hypertrophy is present bilaterally. There is mild spinal canal stenosis without significant neural foraminal stenosis. At L2-L3: Facet hypertrophy and ligamentum flavum thickening are noted contributing to mild spinal canal narrowing and mild left neural foraminal narrowing. At L3-L4: Facet hypertrophy is present with ligamentum flavum thickening. There is mild spinal canal stenosis with moderate left and mild right neural foraminal stenosis. At L4-L5: There is a broad-based disc bulge with facet hypertrophy and ligament flavum thickening. There is mild spinal canal narrowing with moderate left and mild right neural foraminal stenosis. At L5-S1: There is facet hypertrophy. There is no significant spinal canal or neural foraminal narrowing. MR/MR lumbar spine wo con IMPRESSION: At L3-L4: Facet hypertrophy is present with ligamentum flavum thickening. There is mild spinal canal stenosis with moderate left and mild right neural foraminal stenosis. At L4-L5: There is a broad-based disc bulge with facet hypertrophy and ligament flavum thickening. There is mild spinal canal narrowing with moderate left and mild right neural foraminal stenosis. Lesser degrees of degenerative changes are noted as above. Impression dictated by: Caleb Tobin M.D. 05/19/2025 12:08 AM Dictation Location: [place] [address] Electronically authenticated by: [id number] Y Date: 05/19/2025 00:08
== END 2025-05-18 12:52 | disposition home or self-care (01) ==
LOC: MRI 12:52
PROVIDERS: PCP Family Medicine; Visit Provider Family Medicine
DX: M51.360 Other intervertebral disc degeneration, lumbar region with discogenic back pain only (principal); M48.062 Spinal stenosis, lumbar region with neurogenic claudication
CPT/HCPCS: 72148

== ENCOUNTER 2025-08-17 12:45 | Outpatient (OUT) | payer MEDICARE, OTHER, SELFPAY ==
--- OUTSIDE RECORDS SUMMARY | 2025-08-17 13:01 | XMS_ITS | Encounter Summary ---
Author Organization [facility] Address [address] [place] [address] Care Team Providers Care Wool Hat Hydraulicker Name Role Phone Zachary Faulkner MD Primary Care Provider [phone] Farnaz Turpin HOSPITAL CLINIC ASSISTANT Unavailable [phone] Encounter Details Date Type Department Care Team (Late st Contact Info) Description 10/21/2024 Orders Only [facility] [address] [place] [address] Gerald Nieves MD [address] [place], [place] [address] Social History Tobacco Use Types Packs/Day Years [...] as of this encounter Plan of Treatment Not on file documented as of this encounter Procedures Procedure Name Priority Date/Time Associated Diagnosis Comments XR CHEST 1 VIEW Routine 10/21/2024 11:31 AM EST documented in this encounter Results * XR chest 1 view (10/21/2024 11:31 AM EST) Anatomical Region Laterality Modality Chest Radiographic Catherine ging us Gerald Nieves MD IMG XR PROCEDURES Final Resul t documented in this encounter Visit Diagnoses Not on filedocumented in this encounter Care Teams Wool Hat Hydraulicker Relationship Specialty Start Date End Date Zachary Faulkner MD PCP - General Family Medicine 07/27/24 Farnaz Turpin NP Nurse Practitioner Family Medicine 07/27/24 documented as of this encounter
--- OUTSIDE RECORDS SUMMARY | 2025-08-17 13:01 | XMS_ITS | Encounter Summary ---
Author Organization [facility] Address [address] [place] [address] Care Team Providers Care Uniform Designer Name Role Phone Shaikh CHANDA Chapin Primary Care Provider [phone] UnallocatedRojas MD Primary Care Provi randee Shaikh CHANDA Chapin Primary Care Provider [phone] Zachary Faulkner MD Primary Care Provider [phone] Farnaz Turpin SLOT FLOORPERSON Unavailable [phone] Reason for Visit * Reason Comments Med Refill Encounter Details Date Type Department Care Team (Late st Contact Info) Description 11/07/2023 Refill [facility] [address] [place] [address] Shaikh Chapin MD [address] [place] [address] Osteoporosis, unspecified osteoporosis type, unspecified pathological fracture [...] documented in this encounter Plan of Treatment Not on file documented as of this encounter Visit Diagnoses Diagnosis Osteoporosis, unspecified osteoporosis type, unspecified pathological fracture presence- Primary documented in this encounter Care Teams Uniform Designer Relationship Specialty Start Date End Date Shaikh Chapin MD PCP - General Internal Medicine 05/29/23 12/31/23 Unallocated, Rojas Valera MD [address] [place] [address] PCP - General Family Medicine 01/01/24 01/03/24 Shaikh Chapin MD [address] [place] [address] PCP - General Internal Medicine 01/04/24 07/26/24 Zachary Faulkner MD [address] [place] [address] PCP - General Family Medicine 07/27/24 Farnaz Turpin NP [address] [place] [address] Nurse Practitioner Family Medicine 07/27/24 documented as of this encounter
--- OUTSIDE RECORDS SUMMARY | 2025-08-17 13:01 | XMS_ITS | Encounter Summary ---
Author Organization [facility] Address [address] [place] [address] Care Team Providers Care Glove Turner And Former Automatic Name Role Phone Shaikh CHANDA Chapin Primary Care Provider [phone] Unallocated, Rojas Valera MD Primary Care Provi randee Shaikh CHANDA Chapin Primary Care Provider [phone] Zachary Faulkner MD Primary Care Provider [phone] Farnaz Turpin HEMATOLOGY NURSE EDUCATOR Unavailable [phone] Encounter Details Date Type Department Care Team (Late st Contact Info) Description 11/09/2023 Orders Only [facility] [address] [place] [address] Shaikh Chapin MD [address] [place] [address] Social History Tobacco Use Types Packs/Day Years [...] on filedocumented in this encounter Care Teams Glove Turner And Former Automatic Relationship Specialty Start Date End Date Shaikh Chapin MD PCP - General Internal Medicine 05/29/23 12/31/23 Unallocated, Rojas Valera MD [address] [place] [address] PCP - General Family Medicine 01/01/24 01/03/24 Shaikh Chapin MD [address] [place] [address] PCP - General Internal Medicine 01/04/24 07/26/24 Zachary Faulkner MD [address] [place] [address] PCP - General Family Medicine 07/27/24 Farnaz Turpin NP [address] [place] [address] Nurse Practitioner Family Medicine 07/27/24 documented as of this encounter
--- OUTSIDE RECORDS SUMMARY | 2025-08-17 13:01 | XMS_ITS | Encounter Summary ---
Author Organization [facility] Address [address] [facility] [place] [address] Care Team Providers Care Non Licensed Nuclear Plant Operator Name Role Phone Zachary Faulkner MD Primary Care Provider [phone] Farnaz Turpin PROCESS IMPROVEMENT ANALYST Unavailable [phone] Encounter Details Date Type Department Care Team (Late st Contact Info) Description 05/19/2025 Results Follow-Up [facility] [address] [place] [address] Zachary Faulkner MD [address] [place] [address] MR LUMBAR SPINE WO CON Social History Tobacco Use Types Packs/Day Years [...] or ex-partner? No 02/21/2025 Social Connection and Isolation Panel Answer Date Recorded In a typical week, how many times do you talk on the phone with family, friends, or neighbors? More than three times a week 02/21/2025 How often do you get togethe r with friends or relatives? Twice a week 02/21/2025 How often do you attend [facility] or oriental orthodox services? More than 4 times per year 02/21/2025 Do you belong to any clubs o r organizations such as confucianism groups, unions, fraternal or athletic groups, or [...] were you homeless or living in a longterm (including now)? No 02/21/2025 Comments Unknown Sex [...] lumbar region with discogenic back pain- Primary documented in this encounter Care Teams Non Licensed Nuclear Plant Operator Relationship Specialty Start Date End Date Zachary Faulkner MD PCP - General Family Medicine 07/27/24 Farnaz Turpin NP Nurse Practitioner Family Medicine 07/27/24 documented as of this encounter
--- OUTSIDE RECORDS SUMMARY | 2025-08-17 13:02 | XMS_ITS | Encounter Summary ---
Author Organization [facility] Address [address] [facility] [place] [address] Care Team Providers Care Carpenter Mine Name Role Phone Zachary Faulkner MD Primary Care Provider [phone] Farnaz Turpin ARCHITECTURAL TECHNICIAN Unavailable Encounter Details Date Type Department Care Team (Late st Contact Info) Description 05/10/2025 Orders Only [facility] [address] [place] [address] Zachary Faulkner MD [address] [place] [address] Social History Tobacco Use Types Packs/Day Years [...] How often do you attend chur or church services? More than 4 times per year 02/21/2025 Do you belong to any clubs o r organizations such as pentecostal groups, unions, fraternal or athletic groups, or [...] any time in the past 12 m [facility], were you homeless or living in [...] SCANNED LABS (05/10/2025 11:30 AM EDT) Zachary Falukner MD LAB CHG PERFORMABLES Final Resul t documented in this encounter Visit Diagnoses Not on filedocumented in this encounter Care Teams Carpenter Mine Relationship Specialty Start Date End Date Zachary Faulkner MD PCP - General Family Medicine 07/27/24 Farnaz Turpin NP Nurse Practitioner Family Medicine 07/27/24 documented as of this encounter
--- OUTSIDE RECORDS SUMMARY | 2025-08-17 13:02 | XMS_ITS | Encounter Summary ---
Author Organization [facility] Address [address] [place] [address] Care Team Providers Care Curve Saw Operator Name Role Phone Zachary Faulkner MD Primary Care Provider [phone] Farnaz Turpin NUISANCE ANIMAL DAMAGE CONTROL AGENT Unavailable [phone] Encounter Details Date Type Department Care Team (Late st Contact Info) Description 05/22/2025 Abstract [facility] [address] [place] [address] Zachary Faulkner MD [address] [place] [address] Social History Tobacco Use Types Packs/Day Years [...] How often do you attend chur or pentecostalism services? More than 4 times per year 02/21/2025 Do you belong to any clubs o r organizations such as mandaeism groups, unions, fraternal or athletic groups, or [...] any time in the past 12 m [facility], were you homeless or living in a custodial (including now)? No 02/21/2025 Comments Unknown Sex and Gender Information Value Date Recorded Sex Assigned at Not on file Legal Sex Female 9:45 PM EDT Gender Identity Not on file Sexual Orientation Not on file documented as of this encounter Plan of Treatment Not on file documented as of this encounter Visit Diagnoses Not on filedocumented in this encounter Care Teams Curve Saw Operator Relationship Specialty Start Date End Date Zachary Faulkner MD PCP - General Family Medicine 07/27/24 Farnaz Turpin NP Nurse Practitioner Family Medicine 07/27/24 documented as of this encounter
--- OUTSIDE RECORDS SUMMARY | 2025-08-17 13:02 | XMS_ITS | Encounter Summary ---
Author Organization [facility] Address [address] [facility] [place] [address] Care Team Providers Care Registered Nurse Cardiac Name Role Phone Shaikh CHANDA Chapin Primary Care Provider [phone] Zachary Faulkner MD Primary Care Provider [phone] Farnaz Turpin CLASSIFYING MACHINE OPERATOR Unavailable Encounter Details Date Type Department Care Team (Late st Contact Info) Description 05/24/2024 Clinisync Result Encounter [facility] External Department Unsolicited Shaikh Chapin MD [address] [facility] [place] [address] Social History Tobacco Use Types Packs/Day Years [...] EDT Narrative 05/24/2024 10:20 [place] [address] XRay Report Signed Patient: CATHERINE HODGES MR#: [id number] : 1960 Acct:[id number] Age/Sex: 63 / F ADM Date: 05/24/24 Loc: CT Attending Dr: Shaikh Tavares Oliver Ordering Physician: Shaikh Benito Chapin Date of Service: 05/24/24 Procedure(s): XR DEXA axial skeleton Accession Number(s): [id number] cc: Shaikh Benito Chapin [place] [address] Patient Name: CATHERINE HODGES MRN: [id number] date: 1960 Sex: F Assigned Patient Location: CT Current Patient Location: CT Accession/Order Number: [id number] Exam Date: 05/24/2024 09:10 Report Date: 05/24/2024 [...] prevention and treatment of osteoporosis. Osteoporos Int. 2021;33(10):9969-9746. doi: 10.1007/o92556-885-45799-f. Epub 2021Feb 27. Erratum in: Osteoporos Int. 2021May 29;: PMID: 93681050; PMCID: [id number]. Electronically authenticated by: SHAHID MOLINA Date: 05/24/2024 10:18 Dictated By: Shahid Molina M.D. Signed By: 05/24/24 1020 DD/ 1018 TD/TT: Diver'S Tender: Procedure Note Radiology, Radiologist, - 05/24/2024 [place] [address] XRay Report Signed Patient: CATHERINE HODGES JMR#: [id number] : 9Acct:[id number] Age/Sex: 63 / FADM Date: 05/24/24 Loc: CT Attending Dr: Shaikh Tavares Oliver Ordering Physician: Shaikh Benito Chapin Date of Service: 05/24/24 Procedure(s): XR DEXA axial skeleton Accession Number(s): [id number] cc: Shaikh Benito Chapin [place] [address] Patient Name: CATHERINE HODGES MRN: [id number] date: 1960 Sex: F Assigned Patient Location: CT Current Patient Location: CT Accession/Order Number: [id number] Exam Date: 05/24/2024 09:10 Report Date: 05/24/2024 [...] 10-year hip fracture risk >= 3% or [id number] major osteoporosis-related fracture risk >= 20% (i.e., [...] to prevention and treatment of osteoporosis.Osteoporos Int. 2021;33(10):7752-1530. doi: 10.1007/a44378-213-56403-b. Ep. Erratum in: Osteoporos Int. 2021May 29;: PMID: 45758830; PMCID: [id number]. Electronically authenticated by: SHAHID MOLINA Date: 05/24/2024 10:18 Dictated By: Shahid Molina M.D. Signed By:05/24/24 1020 DD/ 1018 TD/TT: Diver'S Tender: us Shaikh Tavares [facility] Final Result documented in this encounter Visit Diagnoses Not on filedocumented in this encounter Care Teams Registered Nurse Cardiac Relationship Specialty Start Date End Date Shaikh Chapin MD PCP - General Internal Medicine 01/04/24 07/26/24 Zachary Faulkner MD PCP - General Family Medicine 07/27/24 Farnaz Turpin NP Nurse Practitioner Family Medicine 07/27/24 documented as of this encounter
--- OUTSIDE RECORDS SUMMARY | 2025-08-17 13:02 | XMS_ITS | Encounter Summary ---
Author Organization [facility] Address [address] [facility] [place] [address] Care Team Providers Care Printed Circuit Boards Pinner Name Role Phone Zachary Faulkner MD Primary Care Provider [phone] Farnaz Turpin SUPERVISOR PIT AND AUXILIARIES Unavailable [phone] Encounter Details Date Type Department Care Team (Late st Contact Info) Description 02/23/2025 Orders Only [facility] [address] [place] [address] Zachary Faulkner MD [address] [place] [address] Social History Tobacco Use Types Packs/Day Years [...] How often do you attend chur or orthodoxy services? More than 4 times per year 02/21/2025 Do you belong to any clubs o r organizations such as shinto groups, unions, fraternal or athletic groups, or [...] any time in the past [address] [facility], were you homeless or living [...] on filedocumented in this encounter Care Teams Printed Circuit Boards Pinner Relationship Specialty Start Date End Date Zachary Faulkner MD PCP - General Family Medicine 07/27/24 Farnaz Turpin NP Nurse Practitioner Family Medicine 07/27/24 documented as of this encounter
--- OUTSIDE RECORDS SUMMARY | 2025-08-17 13:02 | XMS_ITS | Encounter Summary ---
Author Organization [facility] Address [address] [facility] [place] [address] Care Team Providers Care Hotel Or Motel Room Service Supervisor Name Role Phone Shaikh CHANDA Chapin Primary Care Provider [phone] Zcahary Faulkner MD Primary Care Provider [phone] Farnaz Turpin MASTER MECHANIC Unavailable Encounter Details Date Type Department Care Team (Late st Contact Info) Description 02/02/2024 Clinisync Result Encounter [facility] External Department Unsolicited Shaikh Chapin MD [address] [place] [address] Social History Tobacco Use Types Packs/Day Years [...] PM EDT Narrative 02/02/2024 1:10 [place] [address] XRay Report Signed Patient: CATHERINE HODGES MR#: [id number] : 1960 Acct:[id number] Age/Sex: 63 / F ADM Date: 02/02/24 Loc: RAD Attending Dr: Shaikh Tavares Oliver Ordering Physician: Shaikh Benito Chapin Date of Service: 02/02/24 Procedure(s): XR chest 2V Accession Number(s): [id number] cc: Shaikh Benito Chapin [place] [id number] Patient Name: CATHERINE HODGES MRN: [id number] date: 1960 Sex: F Assigned Patient Location: RAD Current Patient Location: RAD Accession/Order Number: [id number] Exam Date: 02/02/2024 12:22 Report Date: 02/02/2024 [...] Signed By: 02/02/24 1310 DD/ 1308 TD/TT: Photographer Aerial: Procedure Note Radiology, Radiologist, - 02/02/2024 [place] [address] XRay Report Signed Patient: CATHERINE HODGES R#: [id number] : 1960cct:[id number] Age/Sex: 63 / FADM Date: 02/02/24 Loc: RAD Attending Dr: Shaikh Tavares Oliver Ordering Physician: Shaikh Benito Chapin Date of Service: 02/02/24 Procedure(s): XR chest 2V Accession Number(s): [id number] cc: Shaikh Benito Chapin [place] [address] Patient Name: CATHERINE HODGES MRN: [id number] date: 1960 Sex: F Assigned Patient Location: [facility] Current Patient Location: [facility] Accession/Order Number: [id number] Exam Date: 02/02/2024 12:22 Report Date: 02/02/2024 [...] M.D. Signed By:02/02/24 1310 DD/ 1308 TD/TT: Photographer Aerial: us Shaikh Tavares [facility] Final Result documented in this encounter Visit Diagnoses Not on filedocumented in this encounter Care Teams Hotel Or Motel Room Service Supervisor Relationship Specialty Start Date End Date Shaikh Chapin MD PCP - General Internal Medicine 01/04/24 07/26/24 Zachary Faulkner MD PCP - General Family Medicine 07/27/24 Farnaz Turpin NP Nurse Practitioner Family Medicine 07/27/24 documented as of this encounter
--- OUTSIDE RECORDS SUMMARY | 2025-08-17 13:02 | XMS_ITS | Encounter Summary ---
Author Organization [facility] Address [address] [place] [address] Care Team Providers Care Javascript Programmer Name Role Phone Shaikh CHANDA Chapin Primary Care Provider [phone] Unallocated, Nadjas Provider Primary Care Provi randee Shaikh CHANDA Chapin Primary Care Provider Zachary Faulkner MD Primary Care Provider [phone] Farnaz Turpin AUTOMATIC LUMP MAKING MACHINE TENDER Unavailable [phone] Encounter Details Date Type Department Care Team (Late st Contact Info) Description 10/06/2023 Clinisync Result Encounter [facility] External Department Unsolicited Shaikh Chapin MD [address] [facility] [place] [address] Social History Tobacco Use Types Packs/Day Years [...] EST Narrative 10/06/2023 3:10 PM EST The [address] [address] Mammography Report Signed Patient: CATHERINE HODGES MR#: [id number] : 1960 Acct:[id number] Age/Sex: 63 / F ADM Date: 10/06/23 Loc: MAMMO Attending Dr: Shaikh Tavares Oliver Ordering Physician: Shaikh Benito Chapin Results: Date of Service: 10/06/23 Follow Up: Procedure(s): MM tomosynthesis screening BI Accession Number(s): [id number] cc: Shaikh Benito Chapin Patient Name: CATHERINE HODGES MR#: [id number] : 1960 Exam Date: 10/06/2023 Ordering Doctor: [...] breast cancer at age 69. LOCATION: [facility] BREAST COMPOSITION: Scattered areas fibroglandular density. [...] Signed By: 10/06/23 1510 DD/ 1509 TD/TT: Food Processor: Procedure Note Radiology, Radiologist, MD - 10/06/2023 [place] [address] Mammography Report Signed Patient: CATHERINE HODGES JMR#: [id number] : 1960cct:[id number] Age/Sex: 63 / FADM Date: 10/06/23 Loc: MAMMO Attending Dr: Shaikh Tavares Oliver Ordering Physician: Shaikh Benito ChapinResults: Date of Service: 10/06/23Follow Up: Procedure(s): MM tomosynthesis screening BI Accession Number(s): [id number] cc: Shaikh Benito Chapin Patient Name: CATHERINE HODGES MR#: [id number] : 1960 Exam Date: 10/06/2023 Ordering Doctor: Shaikh Quintin Chapni . RADIOLOGY REPORT PROCEDURE: MM TOMOSYNTHESIS SCREENING [...] breast cancer at age 69. LOCATION: [facility] BREAST COMPOSITION: Scattered areas fibroglandular density. [...] M.D. Signed By:10/06/23 1510 DD/ 1509 TD/TT: Food Processor: Shaikh Tavares [facility]AS [facility] Final Result documented in this encounter Visit Diagnoses Not on filedocumented in this encounter Care Teams Javascript Programmer Relationship Specialty Start Date End Date Shaikh Chapin MD PCP - General Internal Medicine 05/29/23 12/31/23 Unallocated, Moon Valera MD [address] [place] [address] PCP - General Family Medicine 01/01/24 01/03/24 Shaikh Chapin MD [address] [place] [address] PCP - General Internal Medicine 01/04/24 07/26/24 Zachary Faulkner MD [address] [place] [address] PCP - General Family Medicine 07/27/24 Farnaz Turpin NP [address] [place] [address] Nurse Practitioner Family Medicine 07/27/24 documented as of this encounter
--- OUTSIDE RECORDS SUMMARY | 2025-08-17 13:02 | XMS_ITS | Encounter Summary ---
Author Organization [facility] Address [address] [facility] [place] [address] Care Team Providers Care Wound Care Rn Name Role Phone Zachary Faulkner MD Primary Care Provider [phone] Farnaz Turpin INVENTORY CONTROL SPECIALIST Unavailable Encounter Details Date Type Department Care Team (Late st Contact Info) Description 04/26/2025 Results [facility] [address] [place] [phone] Mirian Saha MA Vascular US lower extremity venous duplex left Social History Tobacco Use Types Packs/Day Years [...] any clubs o r organizations such as presybeterian groups, unions, fraternal or athletic groups, or [...] any time in the past 12 m [facility], were you homeless or living in a assisted (including now)? No 02/21/2025 Comments Unknown Sex [...] on filedocumented in this encounter Care Teams Wound Care Rn Relationship Specialty Start Date End Date Zachary Faulkner MD PCP - General Family Medicine 07/27/24 Farnaz Turpin NP Nurse Practitioner Family Medicine 07/27/24 documented as of this encounter
--- OUTSIDE RECORDS SUMMARY | 2025-08-17 13:02 | XMS_ITS | Encounter Summary ---
Author Organization [facility] Address [address] [place] [address] Care Team Providers Care Grants Director Name Role Phone Shaikh CHANDA Chapin Primary Care Provider [phone] UnallocatedMoon Provider Primary Care Provi randee Shaikh CHANDA Chapin Primary Care Provider [phone] Zachary Faulkner MD Primary Care Provider [phone] Farnaz Turpin FRONT ELEVATOR OPERATOR Unavailable [phone] Reason for Visit * Reason Comments Med Refill PT INFORMED THAT [facility] WAS SENT IN AND SHE VOICED UNDERSTANDING -SCR Encounter Details Date Type Department Care Team (Late st Contact Info) Description 11/15/2023 Refill [facility] [address] [place] [address] Shaikh Chapin MD [address] [place] [address] Osteopenia after menopause (Primary Dx) Social History [...] AND ALENDRONATE PLEASE. PT USES [facility] IN [place]. -SCR documented in this encounter Plan of Treatment Not on file documented as of this encounter Visit Diagnoses Diagnosis Osteopenia after menopause- Primary documented in this encounter Care Teams Grants Director Relationship Specialty Start Date End Date Shaikh Chapin MD PCP - General Internal Medicine 05/29/23 12/31/23 Unallocated, Moon Valera MD [address] [facility] [place] [address] PCP - General Family Medicine 01/01/24 01/03/24 Shaikh Chapin MD [address] [place] [address] PCP - General Internal Medicine 01/04/24 07/26/24 Zachary Faulkner MD [address] [place] [address] PCP - General Family Medicine 07/27/24 Farnaz Turpin NP [address] [place] [address] Nurse Practitioner Family Medicine 07/27/24 documented as of this encounter
--- OUTSIDE RECORDS SUMMARY | 2025-08-17 13:02 | XMS_ITS | Encounter Summary ---
Author Organization [facility] Address [address] [place] [address] Care Team Providers Care Cone Worker Name Role Phone Shaikh CHANDA Chapin Primary Care Provider [phone] Zachary Faulkner MD Primary Care Provider [phone] Farnaz Turpin STORAGE GARAGE ATTENDANT Unavailable Reason for Visit * Reason Comments Med Refill Encounter Details Date Type Department Care Team (Late st Contact Info) Description 03/02/2024 Refill [facility] [address] [place] [address] Shaikh Chapin MD [address] [place] [address] Other specified hypothyroidism (Primary Dx) Social History [...] Primary documented in this encounter Care Teams Cone Worker Relationship Specialty Start Date End Date Shaikh Chapin MD PCP - General Internal Medicine 01/04/24 07/26/24 Zachary Faulkner MD PCP - General Family Medicine 07/27/24 Farnaz Turpin NP Nurse Practitioner Family Medicine 07/27/24 documented as of this encounter
--- OUTSIDE RECORDS SUMMARY | 2025-08-17 13:02 | XMS_ITS | Encounter Summary ---
Author Organization [facility] Address [address] [facility] [place] [address] Care Team Providers Care Small Package And Bundle Sorter Clerk Name Role Phone Zachary Faulkner MD Primary Care Provider [phone] Farnaz Turpin MUD CLEANER OPERATOR Unavailable [phone] Encounter Details Date Type Department Care Team (Late st Contact Info) Description 02/23/2025 Results [facility] [address] [place] [address] Zachary Faulkner MD [address] [place] [address] XR LUMBAR SPINE 2 OR 3V Social History Tobacco Use Types Packs/Day Years [...] week 02/21/2025 How often do you attend [facility] or restoration services? More than 4 times per year [...] any time in the past 12 m [facility], were you homeless or [...] on filedocumented in this encounter Care Teams Small Package And Bundle Sorter Clerk Relationship Specialty Start Date End Date Zachary Faulkner MD PCP - General Family Medicine 07/27/24 Farnaz Turpin NP Nurse Practitioner Family Medicine 07/27/24 documented as of this encounter
--- OUTSIDE RECORDS SUMMARY | 2025-08-17 13:02 | XMS_ITS | Clinical Summary ---
Author Organization [facility] Address [address] [facility] [place] [address] Care Team Providers Care Harness Rigger Name Role Phone Zachary Aldana MD Primary Care Provider [phone] Farnaz Hoffmann RACE STARTER Unavailable [phone] Allergies Active Allergy Reactions Criticality Noted Date Comments Clindamycin Hives Medium 01/04/2024 Cephalexin Hives Medium 01/04/2024 Medications atorvastatin (Lipitor) 10 MG tabletIndications: Hyperlipidemia, unspecified hyperlipidemia type Take 1 tablet (10 mg) by mouth Daily 90 tablet 1 5 Active alendronate (Fosamax) 70 MG tabletIndications: Osteopenia after menopause Take 1 tablet (70 mg) by mouth every 7 (seven) days Take in the morning with a full glass of water, on an empty stomach, and do not take anything else by mouth or lie down for the next 30 min. 12 tablet 1 5 Active methocarbamol (Robaxin) 750 MG tabletIndications: Chronic bilateral low back pain with right-sided sciatica Take 1 tablet (750 mg) by mouth 4 (four) times a day as needed for muscle spasms 60 tablet 2 5 Active omeprazole (PriLOSEC) [address] capsuleIndications :Gastroesophageal reflux disease without esophagitis Take 1 capsule (40 mg) by mouth in the morning and 1 capsule (40 mg) in the evening. Take before meals. 180 capsule 3 5 Active cetirizine (ZyrTEC) 10 MG tabletIndications: Viral upper respiratory tract infection Take 1 tablet (10 mg) by mouth Daily 30 tablet 2 5 025 Active fluticasone (Flonase) 50 MCG/ACT nasal sprayIndications:V iral upper respiratory tract infection Administer 1-2 sprays into each nostril Daily Shake gently. Before first use, prime pump. After use, clean tip and replace cap. 16 g 2 5 026 Active levothyroxine (Synthroid, Levoxyl) 100 MCG tabletIndications: Other specified hypothyroidism TAKE 1 TABLET BY MOUTH EVERY DAY 90 tablet 5 Active nabumetone (Relafen) 500 MG tabletIndications: Chronic bilateral low back pain with right-sided sciatica TAKE 1 TABLET BY MOUTH 2 TIMES A DAY NEEDED FOR MODERATE PAIN OR MILD PAIN 60 tablet 3 5 Active Active Problems Problem Noted Date [...] (01/04/2024 2:46 PM EST): TSH at goal. 12/22/23 C/w levothyroxine 100 mcg - was increased [...] Encounters Date Type Department Care Team Description 06/12/2025 Refill [facility] [address] [place] [address] Zachary Aldana MD Chronic bilateral low back pain with right-sided sciatica 06/01/2025 Telephone [facility] [address] [place] [address] Zachary Aldana MD 05/26/2025 Refill [facility] [address] [place] [address] Zachary Aldana MD Other specified hypothyroidism 05/22/2025 Abstract [facility] [address] [place] [address] Zachary Aldana MD 05/22/2025 Refill [facility] [address] [place] [address] Zachary Aldana MD Viral upper respiratory tract infection 05/19/2025 Results Follow-Up [facility] [address] [place] [address] Zachary Aldana MD MR LUMBAR SPINE WO CON 05/19/2025 Clinisync Result Encounter [facility] External Department Unsolicited Zachary Aldana MD 05/17/2025 Refill [facility] [address] [place] [address] Zachary Aldana MD from Last 3 Months Immunizations Immunization Administration [...] often do you attend chur ch or denominational services? More than 4 times per year 02/21/2025 Do you belong to any clubs o r organizations such as evangelical groups, unions, fraternal or athletic groups, or [...] any time in the past 12 m [facility], were you homeless or living in a retirement (including now)? No 02/21/2025 Comments Unknown Sex [...] 05/10/2025 10:50 AM EDT Plan of Treatment Health Maintenance Due Date Last Done Comments CT Colonography 1959 FIT-DNA 1959 FIT 1959 FOBT 1960 Sigmoidoscopy 1960 Pap Smear 1980 HPV/Cotest 1989 Pneumococcal Vaccine: 65+ Years (1 of 1 - PCV) 2009 Influenza Vaccine (#1) 2025 4, 08/24/2023, 09/16/2022, Additional history exists Cervical Cancer Screening 11/30/2025 Po stponed from 1989 (Patient Refused) Mammogram 12/16/2025 12/16/2024, 10/06/2023 Colonoscopy 06/12/2031 06/12/2021, 11/02/2020 Colorectal Cancer Screening 06/12/2031 Procedures Procedure Name Priority Date/Time Associated Diagnosis Comments MR LUMBAR SPINE WO CON 12:08 AM EDT MM TOMOSYNTHESIS SCREENING BI 12/16/2024 11:30 AM EST from Last 3 Months or Most Recently Relevant to Health Maintenance Results * MR LUMBAR SPINE WO CON (05/19/2025 12:08 AM EDT) Anatomical Region Laterality Modality Other 05/19/2025 12:0 8 AM EDT Narrative 05/19/2025 12:11 [place] [address] Magnetic Resonance Report Signed Patient: CATHERINE HODGES MR#: [id number] : 1960 Acct:[id number] Age/Sex: 64 / F ADM Date: 05/18/25 Loc: MRI Attending Dr: Zachary Aldana M.D. Ordering Physician: Zachary Aldana M.D. Date of Service: 05/18/25 Procedure(s): MR lumbar spine wo con Accession Number(s): [id number] cc: Zachary Aldana M.D. [place] [address] Patient Name: CATHERINE HODGES MRN: [id number] date: 1960 Sex: F Assigned Patient Location: MRI Current Patient Location: Accession/Order Number: [id number] Exam Date: 05/19/2025 00:04 Report Date: 05/19/2025 00:08 At the request of: ZACHARY ALDANA MD Procedure: MR lumbar spine wo con MR lumbar spine wo con 05/18/2025 1:37 PM SIGNS AND SYMPTOMS: Chronic low back pain radiating into lower extremities, right greater than left PROTOCOL: Multiplanar multisequence MR images of the lumbar spine without IV contrast COMPARISON: None. FINDINGS: The bones of the lumbar spine are in anatomic alignment. There is preservation of vertebral body heights and intervertebral disc spaces. The marrow signal is within normal limits. The conus terminates at the superior endplate of the L2 vertebral body level. No epidural or paraspinous fluid collection is appreciated. At T12-L1: There is a normal disc, central canal, and neural foramen. At L1-L2: Facet hypertrophy is present bilaterally. There is mild spinal canal stenosis without significant neural foraminal stenosis. At L2-L3: Facet hypertrophy and ligamentum flavum thickening are noted contributing to mild spinal canal narrowing and mild left neural foraminal narrowing. At L3-L4: Facet hypertrophy is present with ligamentum flavum thickening. There is mild spinal canal stenosis with moderate left and mild right neural foraminal stenosis. At L4-L5: There is a broad-based disc bulge with facet hypertrophy and ligament flavum thickening. There is mild spinal canal narrowing with moderate left and mild right neural foraminal stenosis. At L5-S1: There is facet hypertrophy. There is no significant spinal canal or neural foraminal narrowing. MR/MR lumbar spine wo con IMPRESSION: At L3-L4: Facet hypertrophy is present with ligamentum flavum thickening. There is mild spinal canal stenosis with moderate left and mild right neural foraminal stenosis. At L4-L5: There is a broad-based disc bulge with facet hypertrophy and ligament flavum thickening. There is mild spinal canal narrowing with moderate left and mild right neural foraminal stenosis. Lesser degrees of degenerative changes are noted as above. Impression dictated by: Caleb Tobin M.D. 05/19/2025 12:08 AM Dictation Location: [place] [address] Electronically authenticated by: [id number] Y Date: 05/19/2025 00:08 Dictated By: Caleb Tobin M.D. Signed By: 05/19/25 0011 DD/ 0008 TD/TT: [employer] Employee: Procedure Note Radiology, Radiologist, MD - 05/19/2025 [place] [address] Magnetic Resonance Report Signed Patient: CATHERINE HODGES JMR#: [id number] : 1960cct:[id number] Age/Sex: 64 / FADM Date: 05/18/25 Loc: MRI Attending Dr: Zachary Aldana M.D. Ordering Physician: Zachary Aldana M.D. Date of Service: 05/18/25 Procedure(s): MR lumbar spine wo con Accession Number(s): [id number] cc: Zachary Aldana M.D. [place] [id number] Patient Name: CATHERINE HODGES MRN: [facility]:[id number] date: 1960 Sex: F Assigned Patient Location: MRI Current Patient Location: Accession/Order Number: [id number] Exam Date: 05/19/2025 00:04 Report Date: 05/19/2025 00:08 At the request of: ZACHARY ALDANA MD Procedure: MR lumbar spine wo con MR lumbar spine wo con 05/18/2025 1:37 PM SIGNS AND SYMPTOMS: Chronic low back pain radiating into lowerextremities, right greater than left PROTOCOL: Multiplanar multisequence MR images of the lumbar spine withoutIV contrast COMPARISON: None. FINDINGS: The bones of the lumbar spine are in anatomic alignment. Thereis preservation of vertebral body heights and intervertebral disc spaces. The marrow signal is within normal limits. The conus terminates at thesuperior endplate of the L2 vertebral body level. No epidural or paraspinous fluid collection is appreciated. At T12-L1: There is a normal disc, central canal, and neural foramen. At L1-L2: Facet hypertrophy is present bilaterally. There is mild spinal canal stenosis without significant neural foraminal stenosis. At L2-L3: Facet hypertrophy and ligamentum flavum thickening are noted contributing to mild spinal canal narrowing and mild left neural foraminal narrowing. At L3-L4: Facet hypertrophy is present with ligamentum flavum thickening. There is mild spinal canal stenosis with moderate left and mild rightneural foraminal stenosis. At L4-L5: There is a broad-based disc bulge with facet hypertrophy and ligament flavum thickening. There is mild spinal canal narrowing with moderate left and mild right neural foraminal stenosis. At L5-S1: There is facet hypertrophy. There is no significant spinalcanal or neural foraminal narrowing. MR/MR lumbar spine wo con IMPRESSION: At L3-L4: Facet hypertrophy is present with ligamentum flavum thickening. There is mild spinal canal stenosis with moderate left and mild rightneural foraminal stenosis. At L4-L5: There is a broad-based disc bulge with facet hypertrophy and ligament flavum thickening. There is mild spinal canal narrowing with moderate left and mild right neural foraminal stenosis. Lesser degrees of degenerative changes are noted as above. Impression dictated by: Caleb Tobin M.D. 05/19/2025 12:08 AM Dictation Location: [place] [address] Electronically authenticated by: [id number] Y Date: 500:08 Dictated By: Caleb Tobin M.D. Signed By:05/19/25 0011 DD/ 0008 TD/TT: [employer] Employee: Zachary Aldana MD [facility] Final Result * MM TOMOSYNTHESIS SCREENING BI (12/16/2024 11:30 AM EST) Anatomical Region Laterality Modality Other 12/16/2024 11:3 0 AM EST Narrative 12/16/2024 11:31 [place] [address] Mammography Report Signed Patient: CATHERINE HODGES MR#: [id number] : 1960 Acct:[id number] Age/Sex: 64 / F ADM Date: 12/15/24 Loc: MAMMO Attending Dr: FARNAZ HOFFMANN Ordering Physician: FARNAZ HOFFMANN Results: Date of Service: 12/15/24 Follow Up: Procedure(s): MM tomosynthesis screening BI Accession Number(s): [id number] cc: FARNAZ HOFFMANN Patient Name: CATHERINE HODGES MR#: [id number] : 1960 Exam Date: 12/15/2024 Ordering Doctor: FARNAZ HOFFMANN RADIOLOGY REPORT PROCEDURE: MM TOMOSYNTHESIS SCREENING BI [...] breast cancer at age 69. LOCATION: [facility] BREAST COMPOSITION: There are scattered areas [...] Signed By: 12/16/24 1131 DD/ 1130 TD/TT: [employer] Employee: Procedure Note Radiology, Radiologist, MD - 12/16/2024 [place] [address] Mammography Report Signed Patient: CATHERINE HODGES JMR#: [id number] : 1960cct:[id number] Age/Sex: 64 / FADM Date: 12/15/24 Loc: MAMMO Attending Dr: FARNAZ HOFFMANN Ordering Physician: Jennifer HOFFMANNults: Date of Service: 12/15/24Follow Up: Procedure(s): MM tomosynthesis screening BI Accession Number(s): [id number] cc: FARNAZ HOFFMANN Patient Name: CATHERINE HODGES MR#: [id number] : 1960 Exam Date: 12/15/2024 Ordering Doctor: FARNAZ HOFFMANN RADIOLOGY REPORT PROCEDURE: MM TOMOSYNTHESIS SCREENING BI COMPARISON: MM TOMOSYNTHESIS SCREENING BI, 10/06/2023. MG MAMM [id number] MEKA CAD, 09/24/2022. MG MAMM SCREEN 3D [facility]KA CAD, 04/16/2021. MG MAMM BILSCRN W CAD DIG, 05/31/2013. INDICATIONS: Screening Calculator Name NCI Breast Cancer Risk Assessment Tool 5 Year Breast Cancer Risk 1.60% Lifetime Breast Cancer Risk 6.10% Personal Breast Cancer No Personal Ovarian Cancer No Treatments None Family Cancers Grandmother-paternal with breast cancer at age 70. LOCATION: [facility] BREAST COMPOSITION: There are scattered areas [...] M.D. Signed By:12/16/24 1131 DD/ 1130 TD/TT: [employer] Employee: Farnaz Hoffmann NP [facility] Final Result from Last 3 Months or Most Recently Relevant to Health Maintenance [place] [address] [employer] Care Teams Harness Rigger Relationship Specialty Start Date End Date Zachary Aldana MD PCP - General Family Medicine 07/27/24 Farnaz Hoffmann NP Nurse Practitioner Family Medicine 07/27/24
--- OUTSIDE RECORDS SUMMARY | 2025-08-17 13:02 | XMS_ITS | Encounter Summary ---
Author Organization [facility] Address [address] [place] [address] Care Team Providers Care Airport Duty Manager Name Role Phone Zachary Faulkner MD Primary Care Provider [phone] Farnaz Turpin EDUCATION PROGRAM MANAGER Unavailable [phone] Encounter Details Date Type Department Care Team (Late st Contact Info) Description 02/24/2025 Abstract [facility] [address] [place] [address] Zachary Faulkner MD [address] [place] [address] Social History Tobacco Use Types Packs/Day Years [...] How often do you attend chur or scientologist services? More than 4 times per year 02/21/2025 Do you belong to any clubs o r organizations such as taoism groups, unions, fraternal or athletic groups, or [...] any time in the past 12 m [facility], were you homeless or living in a [facility] (including now)? No 02/21/2025 Comments Unknown Sex and Gender Information Value Date Recorded Sex Assigned at Not on file Legal Sex Female 9:45 PM EDT Gender Identity Not on file Sexual Orientation Not on file documented as of this encounter Plan of Treatment Not on file documented as of this encounter Visit Diagnoses Not on filedocumented in this encounter Care Teams Airport Duty Manager Relationship Specialty Start Date End Date Zachary Faulkner MD PCP - General Family Medicine 07/27/24 Farnaz Turpin NP Nurse Practitioner Family Medicine 07/27/24 documented as of this encounter
--- OUTSIDE RECORDS SUMMARY | 2025-08-17 13:02 | XMS_ITS | Clinical Summary ---
Author Organization [facility] Address [address] [place] [address] Care Team Providers Care Commercial Service Technician Name Role Phone Zachary Faulkner MD Primary Care Provider [phone] Allergies Active Allergy Reactions Criticality Noted Date Comments Cephalexin Hives Medium 01/04/2024 Clindamycin Hives Medium 01/04/2024 Medications rzwaicqm-jiu-qd rrous fumarate (Multi Vitamin) 9 mg iron/15 mL liquid Take by mouth. 04/23/2021 Active alendronate (Fosamax) 70 mg tablet Take 70 mg by mouth once a week. 08/15/2021 Active atorvastatin (Lipitor) 10 mg tablet Take 10 mg by mouth in the morning. 04/23/2021 Active cetirizine (ZyrTEC) 10 mg tablet Take 10 mg by mouth in the morning. 05/22/2025 08/20/20 25 Active levothyroxine (Synthroid, Levoxyl) 100 mcg tablet Take 100 mcg by mouth in the morning. 05/29/2025 Active methocarbamol (Robaxin) 750 mg tablet Take 750 mg by mouth if needed in the morning, at noon, in the evening, and at bedtime. 02/23/2025 Active nabumetone (Relafen) 500 mg tablet TAKE 1 TABLET BY MOUTH 2 TIMES A DAY NEEDED FOR MODERATE PAIN OR MILD PAIN 06/13/2025 Active omeprazole (PriLOSEC) [address] capsule TAKE 1 CAPSULE BY MOUTH IN THE MORNING AND 1 CAPSULE IN THE EVENING. TAKE BEFORE MEALS. Active ascorbic acid (Vitamin C) 500 mg tablet Take 500 mg by mouth in the morning. Active docosahexaenoic acid/epa (FISH OIL ORAL) Take by mouth. Active zs-bsu-NT-vit F-sxnyrn-fhnokt t 200 mcg-15 mcg- 5 mg-1 mg capsule Take by mouth. Active Encounters Date Type Department Care Team Description 06/21/2025 1:15 PM EDT Office Visit Heather Patricio [facility] [address] [place] [phone] Josh Bahena MD Facet arthropathy, lumbar (Primary Dx) 06/21/2025 - 06/21/2025 11:59 PM EDT Hospital Encounter [facility] [place] Radiology External Films [address] [place] [phone] Discharge Disposition: Home or Self Care (01) 06/20/2025 - 06/20/2025 11:59 PM EDT Hospital Encounter [facility] [place] Radiology External Films [address] [place] [phone] Discharge Disposition: Home or Self Care () from Last 3 Months Family History Medical History Relation Name Comments Clotting disorder Father's Sister SANDY CRUZ MY SON Diabetes Mother BRUCE HUTTON Relation Name Status Comments Father's Sister SANDY CRUZ MY SON Alive Mother BRUCE HUTTON Alive Social History Tobacco Use Types Packs/Day Years Used Date Smoking Tobacco: Former Cigarettes Q uit: 05/05/2007 Smokeless Tobacco: Never Tobacco Cessation:Counseling Given: Not Answered Alcohol Use Standard Drinks/Week Comments Yes 1 (1 standard drink = 0.6 oz pur e alcohol) PHQ-2 Answer Date Recorded Patient Health Questionnaire-2 Score 0 06/21/2025 Comments Unknown Sex and Gender Information Value Date Recorded Sex Assigned at Female 06/18/2025 12:55 PM EDT Legal Sex Female 9:38 AM EDT Gender Identity Female 06/18/2025 12:55 PM EDT Sexual Orientation Choose not to disclose 2024 12:55 PM EDT Last Filed Vital Signs Vital Sign Reading Time Taken Comments Blood Pressure 158/76 06/21/2025 1:05 PM EDT Pulse 75 06/21/2025 1:05 PM EDT Temperature - - Respiratory Rate - - Oxygen Saturation 95% 06/21/2025 1:05 PM EDT Inhaled Oxygen Concentration - - Weight 95.3 kg (210 lb) 06/21/2025 1:05 PM EDT Height 162.6 cm (5' 4 ) 06/21/2025 1:05 PM EDT Body Mass Index 36.05 06/21/2025 1:05 PM EDT Plan of Treatment Health Maintenance Due Date Last Done Comments CT Colonography 1959 FIT-DNA 1959 FIT 1959 FOBT 1960 Medicare Annual Wellness (AWV) 1959 Medicare Initial Physical (IPPE) 1959 Sigmoidoscopy 1959 Pap Smear 1980 Adult Tetanus 1981 Cervical Cancer Screening 1989 HPV/Cotest 1989 Mammogram 1999 Pneumococcal Vaccine: 50+ Years (1 of 1 - PCV) 2009 COVID-19 Vaccine ( season) 2025 08/15/2024, 08/24/2023, 08/23/2022, Additional history exists Influenza Vaccine (#1) 2025 , 08/24/2023, 09/16/2022, Additional history exists Depression Screening 06/21/2026 06/21/2025 Fall Risk Screening 06/21/2026 06/21/2025 Colonoscopy 06/12/2031 06/12/2021 Colorectal Cancer Screening 06/12/2031 Zoster Vaccines Completed 04/08/2023, 02/04/2023 HIB Vaccines Aged Out No longer eligi ble based on patient's age to complete this topic HPV Vaccines Aged Out No longer eligi ble based on patient's age to complete this topic IPV Vaccines Aged Out No longer eligi ble based on patient's age to complete this topic Meningococcal B Vaccine Aged Out No l onger eligible based on patient's age to complete this topic Meningococcal Vaccine Aged Out No oskar donis eligible based on patient's age to complete this topic Rotavirus Vaccines Aged Out No longer eligible based on patient's age to complete this topic Procedures Procedure Name Priority Date/Time Associated Diagnosis Comments XR TRANSFER OF OUTSIDE FILMS Routine 06/21/2025 12:00 AM EDT XR TRANSFER OF OUTSIDE FILMS Routine 06/20/2025 12:00 AM EDT from Last 3 Months Results * XR transfer of outside films (06/21/2025 12:00 AM EDT) Only the most recent of2 resultswithin the time period is included. Narrative IMAGING - 06/21/2025 1:35 PM EDT This order has been auto-finalized and does not contain a result. us Josh Bahena MD IMG XR PROCEDURES Final Resul t IMAGING from Last 3 Months [place] [address] [place] [address] Care Teams Commercial Service Technician Relationship Specialty Start Date End Date Zachary Faulkner MD [address] [place] [address] PCP - General Family Medicine 06/18/25
--- OUTSIDE RECORDS SUMMARY | 2025-08-17 13:02 | XMS_ITS | Encounter Summary ---
Author Organization [facility] Address [address] [facility] [place] [address] Care Team Providers Care Aircraft Instrument Engineer Name Role Phone Shaikh CHANDA Chapin Primary Care Provider [phone] Zachary Faulkner MD Primary Care Provider [phone] Farnaz Turpin LOAN WORKOUT OFFICER Unavailable [phone] Encounter Details Date Type Department Care Team (Late st Contact Info) Description 05/25/2024 Clinisync Result Encounter [facility] External Department Unsolicited Shaikh Chapin MD [address] [facility] [address] Social History Tobacco Use Types Packs/Day Years [...] AM EDT Narrative 05/25/2024 5:47 AM EDT [address] [address] [address] Scan Report Signed Patient: CATHERINE HODGES MR#: [id number] : 1960 Acct:[id number] Age/Sex: 63 / F ADM Date: 05/24/24 Loc: CT Attending Dr: Shaikh Tavares Oliver Ordering Physician: Shaikh Benito Chapin Date of Service: 05/24/24 Procedure(s): CT chest wo con Accession Number(s): [id number] cc: Shaikh Benito Chapin [place] [address] Patient Name: CATHERINE HODGES MRN: [id number] date: 1960 Sex: F Assigned Patient Location: CT Current Patient Location: Accession/Order Number: [id number] Exam Date: 05/24/2024 09:00 Report Date: 05/25/2024 [...] Dictated By: Shahid Molina M.D. Signed By: 05/25/2447 DD/ TD/TT: Addiction Medicine Physician: Procedure Note Radiology, Radiologist, MD - 05/25/2024 [place] [address] CT Scan Report Signed Patient: CATHERINE HODGES R#: [id number] : 1960cct:[id number] Age/Sex: 63 / FADM Date: 05/24/24 Loc: CT Attending Dr: Shaikh Tavares Oliver Ordering Physician: Shaikh Benito Chapin Date of Service: 05/24/24 Procedure(s): CT chest wo con Accession Number(s): [id number] cc: Shaikh Benito Chapin [address] [place] [address] Patient Name: CATHERINE HODGES MRN: [id number] date: 1960 Sex: F Assigned Patient Location: CT Current Patient Location: Accession/Order Number: [id number] Exam Date: 05/24/2024 09:00 Report Date: 05/25/2024 [...] M.D. Signed By:05/25/24 0547 DD/ 0543 TD/TT: Addiction Medicine Physician: Shaikh Tavares [facility] Final Result documented in this encounter Visit Diagnoses Not on filedocumented in this encounter Care Teams Aircraft Instrument Engineer Relationship Specialty Start Date End Date Shaikh Chapin MD PCP - General Internal Medicine 01/04/24 07/26/24 Zachary Faulkner MD PCP - General Family Medicine 07/27/24 Farnaz Turpin NP Nurse Practitioner Family Medicine 07/27/24 documented as of this encounter
--- OUTSIDE RECORDS SUMMARY | 2025-08-17 13:03 | XMS_ITS | CCD ---
Author Organization [facility] Care Team Providers Care Manager Operations Name Role Phone FAWWAD, VAIL H Attending Unavailable FAWWAD, VAIL H Admitting Unavailable DR MAKENZIE GOLDMAN V Consulting Unavailable FAWWAD, VAIL H Primary Care Unavailable FAWWAD, VAIL H Consulting Unavailable FAWWAD, VAIL H Attending Unavailable FAWWAD, VAIL H Admitting Unavailable FAWWAD, VAIL H Primary Care Unavailable ZIEBER, DR CELINE Schmidt Consulting Unavailable FAWWAD, VAIL H Consulting Unavailable FAWWAD, VAIL H Attending Unavailable FAWWAD, VAIL H Admitting Unavailable FAWWAD, VAIL H Primary Care Unavailable ZIEBER, DR CELINE Schmidt Consulting Unavailable FAWWAD, VAIL H Consulting Unavailable FRANCIA DINH Attending Unavailable FAWWAD, VAIL H Primary Care Unavailable FRANCIA DINH Admitting Unavailable FAWWAD, VAIL H Primary Care Unavailable REQUEST, NONE LISTED Consulting Unavaila ble REQUEST, NONE LISTED Attending Unavaila ble REQUEST, NONE LISTED Admitting Unavaila ble FAWWAD, VAIL H Primary Care Unavailable FAWWAD, VAIL H Consulting Unavailable FAWWAD, VAIL H Attending Unavailable FAWWAD, VAIL H Admitting Unavailable Zachary Aldana MD Primary Care Provider [phone] Turpin FACILITIES CLERK, Ben Unavailable Dyana FACILITIES CLERK, Ben Unavailable BEN TUPRIN Attending UnavailZACHARY Whitlock Attending Unavailable FABjWAD, VAIL Attending Unavailable LEROY ZACARIAS Attending Unavailable LEROY ZACARIAS Referring Unavailable ZACHARY ALDANA Attending Unavailable Charo Baker MD Primary Care Provider [phone] Roblesagnes EDIE Fortino Whitley Attending Provider [phone] Marlen Allan DO Attending Provider [phone] Marlen Allan DO Other Provider Zachary Aldana MD Primary Care Provider [phone] JOSH REICH Attending Unavailable JOSH REICH Referring Unavailable JOSH REICH Referring Unavailable Marlen Allan Attending Unavailable Marlen Allan Admitting Unavailable Zachary Aldana Primary Care Unavailable Maddison Madrigal DO Primary Care Provider [phone] Maddison Madrigal DO Attending Provider [phone] Allergies Allergy Classification Reported Allergen(s) Allergy Type Date of Onset Reaction(s) Facility (20 sources) Cephalexin; Translations: [CEPHALEXIN] Drug Allergy 01-04-2024 [facility] (20 sources) Clindamycin; Translations: [CLINDAMYCIN] Drug Allergy 01-04-2024 [facility] Medications Current Medications Medication Drug Class(es) Dates Sig (Normalized) Sig (Original) alendronic acid 70 mg oral tablet (20 sources) Bisphosphonate Start: 12-27-2023 take 1 tablet by mouth every week Alendronate 70 mg tablet Active 70 MG PO Once a week December 27, 2023 1:00am Complies with drug therapy Start: 12-27-2023 End: 07-05-2025 take 1 tablet by mouth in the morning alendronate (Fosamax) 70 MG tablet Indications: Osteopenia after menopause Take 1 tablet (70 mg) by mouth every 7 (seven) days Take in the morning with a full glass of water, on an empty stomach, and do not take anything else by mouth or lie down for the next 30 min. 12 tablet 1 01/18/2025 07/05/2025 Active Start: 12-27-2023 Alendronate Ac tive MG PO December 27, 2023 12:00am ascorbic acid 1000 mg extended release oral tablet (2 sources) Vitamin C Start: 05-18-2025 take 1 tablet by mouth once daily Ascorbic Acid (Vitamin C) (C Complex) 1,000 mg tablet extended release Active 1000 MG PO Daily May 18, 2025 12:00am Complies with drug therapy aspirin 81 mg oral tablet (2 sources) Platelet Aggregation Inhibitor, Nonsteroidal Anti-inflammatory Drug Start: 05-18-2025 take 1 tablet by mouth once daily Aspirin 81 mg tablet Active 81 MG PO Daily May 18, 2025 12:00am Complies with drug therapy atorvastatin 10 mg oral tablet (20 sources) HMG-CoA Reductase Inhibitor Start: 12-27-2023 End: 11-28-2024 take 1 tablet by mouth once daily Atorvastatin 10 mg tablet Active 10 MG PO Daily December 27, 2023 1:00am Complies with drug therapy calcium carbonate 1500 mg oral tablet (2 sources) Start: 05-18-2025 take 1 tablet by mouth once daily Calcium Carbonate (Calcium 600) 600 mg calcium (1,500 mg) tablet Active 600 MG PO Daily May 18, 2025 12:00am Complies with drug therapy cetirizine hydrochloride 10 mg oral tablet (8 sources) Histamine-1 Receptor Antagonist Start: 05-22-2025 End: 08-20-2025 take 1 tablet by mouth once daily as needed Cetirizine (Zyrtec) 10 mg tablet Active 10 MG PO Daily as needed August 15, 2025 12:00am Complies with drug therapy Start: 11-30-2024 End: 02-28-2025 take 1 tablet by mouth once daily cetirizine (ZyrTEC) 10 MG tablet Indications: Viral upper respiratory tract infection Take 1 tablet (10 mg) by mouth Daily 30 tablet 2 11/30/2024 02/23/2025 Discontinued desonide 0.5 mg/ml topical cream (5 sources) Corticosteroid Start: 12-27-2023 End: 11-30-2024 desonide (DesOwen) 0.05 % cream Apply topically 2 (two) times a day to affected area 12/27/2023 11/30/2024 Discontinued (Med list cleanup) fluticasone propionate 0.05 mg/actuat metered dose nasal spray (7 sources) Corticosteroid Start: 11-30-2024 End: 05-22-2026 take 1-2 spray(s) nasal route once daily fluticasone (Flonase) 50 MCG/ACT nasal spray Indications: Viral upper respiratory tract infection Administer 1-2 sprays into each nostril Daily Shake gently. Before first use, prime pump. After use, clean tip and replace cap. 16 g 2 05/22/2025 05/22/2026 Active levothyroxine sodium 0.1 mg oral tablet (20 sources) l-Thyroxine Start: 12-27-2023 End: 05-29-2025 take 1 tablet by mouth once daily levothyroxine (Synthroid, Levoxyl) 100 MCG tablet Indications: Other specified hypothyroidism TAKE 1 TABLET BY MOUTH EVERY DAY 90 tablet 05/29/2025 Active methocarbamol 750 mg oral tablet (13 sources) Muscle Relaxant Start: 02-23-2025 Methocarbamol 750 mg tablet Active 750 MG PO As Directed May 18, 2025 12:00am Complies with drug therapy nabumetone 500 mg oral tablet (13 sources) Nonsteroidal Anti-inflammatory Drug Start: 02-23-2025 End: 06-13-2025 Nabumetone 500 mg tablet Active 500 MG PO As Directed May 18, 2025 12:00am Complies with drug therapy [place] 6-Saq-Yrb-Fish Oil (Fish Oil) 1,000 (120-180) mg capsule (2 sources) Start: 05-18-2025 take 1 capsule by mouth once daily [place] 9-Vja-Bpy-Fish Oil (Fish Oil) 1,000 (120-180) mg capsule Active 1 CAP PO Daily May 18, 2025 12:00am Complies with drug therapy omeprazole 40 mg delayed release oral capsule (20 sources) Proton Pump Inhibitor Start: 02-23-2025 take 1 capsule by mouth twice daily Omeprazole 40 mg capsule,delayed release(DR/EC) Active 40 MG PO Twice daily May 15, 2025 12:00am Complies with drug therapy Start: 05-17-2024 End: 02-23-2025 take 1 capsule by mouth in the morning omeprazole (PriLOSEC) [address] capsule Indications: Gastroesophageal reflux disease without esophagitis Take 1 capsule (40 mg) by mouth in the morning and 1 capsule (40 mg) in the evening. Take before meals. 180 capsule 3 02/23/2025 Active Vit C,I-Ec-Pjwor-Lutein-Zeax an (Eye Health Areds-2) 250-90-40-1 mg capsule (2 sources) Start: 05-18-2025 Vit C,K-Tg-Icjim-Lutein-Zeaxan (Eye Health Areds-2) 250-90-40-1 mg capsule Active 1 TAB PO Twice daily May 18, 2025 12:00am Complies with drug therapy Vitamin K2 45 mcg capsule (2 sources) Start: 05-31-2025 take 1 capsule by mouth once daily Vitamin K2 45 mcg capsule Active 45 MCG PO Daily May 31, 2025 12:00am Complies with drug therapy Completed/Discontinued Medications Medication Drug Class(es) Dates Sig (Normalized) Sig (Original) calcium carbonate 1250 mg / cholecalciferol 0.01 mg oral tablet (4 sources) Vitamin D Start: 12-27-2023 End: 05-18-2025 take 1 tablet by mouth once daily Calcium Carbonate-Vitamin D3 (Oyster Shell Calcium-Vit D3) 500 mg-10 mcg (400 unit) tablet Discontinued 1 TAB PO Daily December 27, 2023 1:00am May 18, 2025 9:31am clindamycin 300 mg oral capsule (4 sources) Lincosamide Antibacterial Start: 12-27-2023 End: 05-15-2025 take 1 capsule by mouth every eight hours Clindamycin Hcl 300 mg capsule Discontinued 300 MG PO Q8H 22 05December 27, 2023 1:00am May 15, 2025 10:23am Problems Active Problems Problem Classification Problem Date Documented Date Episodic/Chronic Abdominal pain (20 sources) Indigestion; Translations: [Epigastric pain] Onset: 01-04-2024 Resolved: 05-10-2025 01-04-2024 Episodic Disorders of lipid metabolism (20 sources) Hyperlipidemia, unspecified; Translations: [Hyperlipidemia] Onset: 03-25-2022 Chronic Esophageal disorders (20 sources) Gastroesophageal reflux disease; Translations: [Gastro-esophageal reflux disease without esophagitis] Onset: 02-15-2024 02-15-2024 Chronic Nonspecific chest pain (1 source) Atypical chest pain; Translations: [Other chest pain] 08-17-2025 Episodic Osteoarthritis (4 sources) Unilateral primary osteoarthritis, left hip; Translations: [UNI PRIM OSTEOARTHRITIS LT HIP] Onset: 05-13-2022 Chronic Osteoporosis (7 sources) Osteoporosis; Translations: [Age-related osteoporosis without current pathological fracture] Onset: 02-15-2024 02-15-2024 Chronic Other bone disease and musculoskeletal deformities (13 sources) Osteopenia; Translations: [Other specified disorders of bone density and structure, left thigh] Onset: 02-15-2024 02-23-2025 Episodic Other circulatory disease (12 sources) Feeling of lump in throat; Translations: [Globus sensation] Onset: 05-10-2025 05-10-2025 Episodic Other lower respiratory disease (1 source) Other nonspecific abnormal finding of lung field; Translations: [OTH NONSPECIFIC ABN FIND LNG FIELD] Onset: 12-19-2022 Episodic Other nervous system disorders (5 sources) Chronic low back pain; Translations: [Other chronic pain] Onset: 02-23-2025 02-23-2025 Chronic Other nervous system disorders (2 sources) Paresthesia of right upper limb; Translations: [Paresthesia of skin] 08-17-2025 Episodic Other non-traumatic joint disorders (2 sources) Pain in left knee; Translations: [Pain in joint, lower leg] 04-25-2025 Episodic Other nutritional; endocrine; and metabolic disorders (13 sources) Severe obesity; Translations: [Class 2 severe obesity due to excess calories with serious comorbidity and body mass index (BMI) of 36.0 to 36.9 in adult ([facility])] Onset: 02-23-2025 02-23-2025 Chronic Other screening for suspected conditions (not mental disorders or infectious disease) (8 sources) Encounter for screening mammogram for malignant neoplasm of breast; Translations: [Patient encounter status] Onset: 09-24-2022 Episodic Residual codes; unclassified (1 source) Family history of malignant neoplasm of breast; Translations: [FAMILY HX MALIG NEOPLASM OF BREAST] Onset: 09-29-2022 Episodic Screening and history of mental health and substance abuse codes (20 sources) Ex-smoker; Translations: [Personal history of nicotine dependence] Onset: 01-04-2024 01-04-2024 Episodic Spondylosis; intervertebral disc disorders; other back problems (18 sources) Degeneration of lumbar intervertebral disc; Translations: [Degeneration of intervertebral disc of lumbar region with discogenic back pain] Onset: 02-23-2025 02-23-2025 Chronic Sprains and strains (2 sources) Strain of calf muscle; Translations: [Strain of other muscle(s) and tendon(s) at lower leg level, left leg, initial encounter] 04-25-2025 Episodic Thyroid disorders (20 sources) Hypothyroidism, unspecified; Translations: [Hypothyroidism] Onset: 03-27-2022 Chronic Past or Other Problems Problem Classification Problem Date Documented Da te Episodic/Chronic Biliary tract disease (18 sources) Cholelithiasis without obstruction; Translations: [Calculus of gallbladder without cholecystitis without obstruction] Onset: 01-04-2024 01-04-2024 Episodic Other bone disease and musculoskeletal deformities (18 sources) Postmenopausal osteopenia; Translations: [Other specified disorders of bone density and structure, unspecified site] Onset: 11-18-2023 Resolved: 02-23-2025 11-18-2023 Episodic Other lower respiratory disease (18 sources) Multiple nodules of lung; Translations: [Other nonspecific abnormal finding of lung field] Onset: 01-04-2024 01-04-2024 Episodic Other lower respiratory disease (18 sources) Respiratory tract infection; Translations: [Other specified respiratory disorders] Onset: 02-03-2024 Resolved: 02-23-2025 02-03-2024 Episodic Other lower respiratory disease (18 sources) Disorder of respiratory system; Translations: [Respiratory disorder, unspecified] Onset: 02-03-2024 Resolved: 02-23-2025 02-03-2024 Episodic Other nervous system disorders (4 sources) Anesthesia of skin; Translations: [ANESTHESIA OF SKIN] Onset: 04-08-2022 Episodic Other non-traumatic joint disorders (1 source) Pain in left hip; Translations: [PAIN IN LEFT HIP] Onset: 05-16-2022 Episodic Other upper respiratory infections (17 sources) Viral upper respiratory tract infection; Translations: [Acute upper respiratory infection, unspecified] Onset: 11-30-2024 Resolved: 02-23-2025 11-30-2024 Episodic Otitis media and related conditions (18 sources) Acute suppurative otitis media without spontaneous rupture of ear drum; Translations: [Acute suppurative otitis media without spontaneous rupture of ear drum, bilateral] Onset: 02-03-2024 Resolved: 02-23-2025 02-03-2024 Episodic Skin and subcutaneous tissue infections (18 sources) Cellulitis of face; Translations: [Cellulitis of face] Onset: 01-04-2024 Resolved: 02-23-2025 01-04-2024 Episodic Results Test Name Value Interpretation Reference Range Facility Office Visiton 06-21-2025 Follow-up visit [id number] Juni Sheikh 1960 F Date Provider Department Center 06/21/2025 JOSH IBARRA ONC DCC Family History Problem Relation Age of Onset Diabetes Mother Clotting disorder Father's Sister Family Status - Relation Status Age at Mother Alive Father's Sister Alive Level of Service:57541 [place] OFFICE/OUTPATIENT NEW LOW MDM 30 MINUTES Normal [facility] Pathology Request for Lab Co rpon 05-31-2025 Pathology Request for Lab Dileep Normal [facility] Comment on above: Order Comment: GI SP ECIMEN Result Comment: See report. Scanned copy available in EMR. PERFORMED BY: [place] [address] PATHOLOGIST PRIMER ASSEMBLER FAUSTINO JEFFERS M.D. Performed By: #### P ATH TO [facility] #### [address] [place] [address] Magnetic Resonance Report Signed Patient: JUNI SHEIKH MR#: [id number] : 1960 Acct:[id number] Age/Sex: 64 / F ADM Date: 05/18/25 Loc: MRI Attending Dr: Zachary Aldana M.D. Ordering Physician: Zachary Aldana M.D. Date of Service: 05/18/25 Procedure(s): MR lumbar spine wo con Accession Number(s): [id number] cc: Zachary Aldana M.D. [place] [id number] Patient Name: JUNI SHEIKH MRN: [id number] date: 1960 Sex: F Assigned Patient Location: MRI Current Patient Location: Accession/Order Number: [id number] Exam Date: 05/19/2025 00:04 Report Date: 05/19/2025 [...] Tobin M.D. 05/19/2025 12:08 AM Dictation Location: [place] [address] Electronically authenticated by: [id number] Y Date: 05/19/2025 00:08 Dictated By: Caleb Tobin M.D. Signed By: 05/19/25 0011 DD/ 0008 TD/TT: Manager Behavior: [facility] Radiology, Radiologist, - 05/19/[address] [address] Magnetic Resonance Report Signed Patient: JUNI SHEIKH MR#: [id number] : 1960 Acct:[id number] Age/Sex: 64 / F ADM Date: 05/18/25 Loc: MRI Attending Dr: Zachary Aldana M.D. Ordering Physician: Zachary Aldana M.D. Date of Service: 05/18/25 Procedure(s): MR lumbar spine wo con Accession Number(s): [id number] cc: Zachary Aldana M.D. The [address] [address] Patient Name: JUNI SHEIKH MRN: [id number] date: 1960 Sex: F Assigned Patient Location: MRI Current Patient Location: Accession/Order Number: [id number] Exam Date: 05/19/2025 00:04 Report Date: 05/19/2025 [...] Tobin M.D. 05/19/2025 12:08 AM Dictation Location: [place] [address] Electronically authenticated by: [id number] Y Date: 05/19/2025 00:08 Dictated By: Caleb Tobin M.D. Signed By: 05/19/25 0011 DD/ 0008 TD/TT: Manager Behavior: [facility] Radiology Study observation (narrative) [facility] MR LUMBAR SPINE WO CONOrdere d By: Radiologist Radiology on 05-19-2025 [facility] [employer] Work Phone: US.doppler Lower extremity v [facility] 04-26-2025 EXAM: VASC US LOWER EXTREMITY VENOUS DUPLEX [...] II, MD, PHD at 26-Apr-2025 07:44:18 AM [facility]AGING Tanner Herrera MD - 04/26/2025 EXAM: VASC [...] II, MD, PHD at 26-Apr-2025 07:44:18 AM [facility] US.doppler Lower extremity v ein - leftOrdered By: Tanner Herrera on 04-26-2025 [facility] Work Phone: US.doppler Lower extremity v ein - lefton 04-25-2025 Radiology Study observation (narrative) [facility] US LOWER EXTREMITY VENO US DUPLEX LEFTon 04-25-2025 VAS US LOWER EXTREMITY VENOUS DUPLEX LEFT EXAM: VASC US LOWER EXTREMITY VENOUS DUPLEX [...] II, MD, PHD at 26-Apr-2025 07:44:18 AM [facility] Normal Not Available XR LUMBAR SPINE 2 [place] 3[place] [address] XRay Report Signed Patient: JUNI SHEIKH MR#: [id number] : 1960 Acct:[id number] Age/Sex: 64 / F ADM Date: 02/23/25 Loc: RAD Attending Dr: Zachary Aldana M.D. Ordering Physician: Zachary Aldana M.D. Date of Service: 02/23/25 Procedure(s): XR lumbar spine 2-3V Accession Number(s): [id number] cc: Zachary Aldana M.D. [address] [address] Patient Name: JUNI SHEIKH MRN: [id number] date: 1960 Sex: F Assigned Patient Location: [facility] Current Patient Location: [facility] Accession/Order Number: [id number] Exam Date: 02/23/2025 13:52 Report Date: 02/23/2025 [...] Rose Jr., D.O.02/23/2025 1:52 PM Dictation Location: [place] [address] Electronically authenticated by: [id number] Y Date: 02/23/2025 13:52 Dictated By: Cesar Rose M.D. Signed By: 02/23/25 1355 DD/ 1352 TD/TT: Manager Behavior: [facility] Radiology, Radiologist, MD - 02/23/2025 [place] [address] XRay Report Signed Patient: JUNI SHEIKH MR#: [id number] : 1960 Acct:[id number] Age/Sex: 64 / F ADM Date: 02/23/25 Loc: [facility] Attending Dr: Zachary Aldana M.D. Ordering Physician: Zachary Aldana M.D. Date of Service: 02/23/25 Procedure(s): XR lumbar spine 2-3V Accession Number(s): [id number] cc: Zachary Aldana M.D. [address] [address] Patient Name: JUNI SHEIKH MRN: [id number] date: 1960 Sex: F Assigned Patient Location: [facility] Current Patient Location: [facility] Accession/Order Number: [id number] Exam Date: 02/23/2025 13:52 Report Date: 02/23/2025 [...] Rose Jr., D.O.02/23/2025 1:52 PM Dictation Location: [place] [address] Electronically authenticated by: [id number] Y Date: 02/23/2025 13:52 Dictated By: Cesar Rose M.D. Signed By: 02/23/25 1355 DD/ 1352 TD/TT: Manager Behavior: [facility] Radiology Study observation (narrative) [facility] XR LUMBAR SPINE 2 OR 3VOrder ed By: Radiologist Radiology on 02-23-2025 [facility] [employer] Work Phone: MM TOMOSYNTHESIS SCREENING B Ion 12-16-2024 [place] [address] Mammography Report Signed Patient: JUNI SHEIKH MR#: [id number] : 1960 Acct:[id number] Age/Sex: 64 / F ADM Date: 12/15/24 Loc: MAMMO Attending Dr: BEN TURPIN Ordering Physician: BEN TURPIN Results: Date of Service: 12/15/24 Follow Up: Procedure(s): MM tomosynthesis screening BI Accession Number(s): [id number] cc: BEN TURPIN Patient Name: JUNI SHEIKH MR#: [id number] : 1960 Exam Date: 12/15/2024 Ordering Doctor: BEN TURPIN RADIOLOGY REPORT PROCEDURE: MM TOMOSYNTHESIS SCREENING [...] breast cancer at age 69. LOCATION: [facility] BREAST COMPOSITION: There are scattered areas [...] PALPABLE LUMP SHOULD BE BIOPSIED. Dictated by: Celine Molina M.D. on 12/16/2024 at 11:28 Approved by: Celine Molina M.D. on 12/16/2024 at 11:30 Dictated By: Celine Molina M.D. Signed By: 12/16/24 1131 DD/ 1130 TD/TT: Manager Behavior: [facility] Radiology, Radiologist, MD - 12/16/2024 [place] [address] Mammography Report Signed Patient: JUNI SHEIKH MR#: [id number] : 1960 Acct:[id number] Age/Sex: 64 / F ADM Date: 12/15/24 Loc: MAMMO Attending Dr: BEN TURPIN Ordering Physician: BEN TURPIN Results: Date of Service: 12/15/24 Follow Up: Procedure(s): MM tomosynthesis screening BI Accession Number(s): [id number] cc: BEN TURPIN Patient Name: JUNI SHEIKH MR#: [id number] : 1960 Exam Date: 12/15/2024 Ordering Doctor: BEN TURPIN RADIOLOGY REPORT PROCEDURE: MM TOMOSYNTHESIS SCREENING [...] breast cancer at age 69. LOCATION: [facility] BREAST COMPOSITION: There are scattered areas [...] PALPABLE LUMP SHOULD BE BIOPSIED. Dictated by: Celine Molina M.D. on 12/16/2024 at 11:28 Approved by: Celien Molina M.D. on 12/16/2024 at 11:30 Dictated By: Celine Molina M.D. Signed By: 12/16/24 1131 DD/ 1130 TD/TT: Manager Behavior: [facility] Radiology Study observation (narrative) [facility] MM TOMOSYNTHESIS SCREENING B IOrdered By: Radiologist Radiology on 12-16-2024 [facility] Work Phone: CT CHEST WO CONon 12-16-2022 CT CHEST [...] document stability. 2. Cholelithiasis. Electronically authenticated by: CELINE MOLINA Date: 2022-12-16 14:[address] [facility] VICKEY - VITAMIN Don 12-16-2022 VIT D 25-OH 28.8 ng/mL Normal [facility] Comment on above: Performed By: #### D ATVITD #### [facility] [address] [place] [address] Dr. Emmanuel Hillman VIT D RANGES SEE BELOW Normal [facility] Comment on above: Result Comment: <20 ng/mL Vit D deficient 20 - <30 ng/mL Vit D insufficient 30 - 100 ng/mL Vit D sufficient >100 ng/mL Potential Toxicity Performed By: #### D ATVITD #### [facility] [address] [place] [address] [address] Emmanuel Hillman GLYCOHEMOGLOBIN A1Con 2022 ADA RECOMMENDATION SEE BELOW Normal [facility] Comment on above: Result Comment: ADA RECOMMENDED LIMIT 4.0 - 6.0 ADA THERAPEUTIC TARGET < 7.0 ACTION SUGGESTED > 7.0 Performed By: #### D ATA1C #### [facility] [address] [place] [address] [address] Emmanuel Hillman Glucose [Mass/Vol] 108 mg/dL Normal [facility] Comment on above: Performed By: #### D ATA1C #### [facility] [address] [place] [address] [address] Emmanuel Hillman HbA1c (Bld) [Mass fraction] 5.4 % Normal 4.5-6.2 [facility] Comment on above: Performed By: #### D ATA1C #### [facility] [address] [place] [address] [address] Emmanuel Hillman LIPID PROFILEon 12-16-2022 CHOL-HDL RATIO NORM SEE BELOW Normal [facility] Comment on above: Result Comment: 3.3 - 4.4 LOW RISK 4.4 - 7.1 AVERAGE RISK 7.1 - 11.0 MODERATE RISK >11.0 HIGH RISK Performed By: #### L IPID, TSH, LIVER #### [facility] [address] [place] [address] [address] Emmanuel Hillman Cholesterol [Mass/Vol] 148 mg/dL Normal <=200 [facility] Comment on above: Performed By: #### L IPID, TSH, LIVER #### [facility] [address] [place] [address] [address] Emmanuel Hillman Cholesterol in HDL [Mass/Vol] 44 mg/dL Normal 40-60 [facility] Comment on above: Performed By: #### L IPID, TSH, LIVER #### [facility] [address] [place], [place] [address] Dr. Emmanuel Hillman Cholesterol in LDL [Mass/Vol] 79.0 mg/dL Normal [facility] Comment on above: Performed By: #### L IPID, TSH, LIVER #### [facility] [address] [place], [place] [address] Dr. Emmanuel Hillman Cholesterol.total/Cho lesterol in HDL [Mass ratio] 3.4 {ratio} Normal [facility] Comment on above: Performed By: #### L IPID, TSH, LIVER #### [facility] [address] [place], [place] [address] Dr. Emmanuel Hillman HDL NORMAL > or = 60 mg/dl - LO W CARDIOVASCULAR RISK <40 mg/dl - HIGH CARDIOVASCULAR RISK Normal [facility] Comment on above: Performed By: #### L IPID, TSH, LIVER #### [facility] [address] [place], [place] [address] Dr. Emmanuel Hillman LDL CALC NORMAL SEE BELOW Normal [facility] Comment on above: Result Comment: <100 mg/dl OPTIMAL 100 - 129 mg/dl NEAR OR ABOVE OPTIMAL 130 - 159 mg/dl BORDERLINE HIGH 160 - 189 mg/dl HIGH >190 mg/dl VERY HIGH Performed By: #### L IPID, TSH, LIVER #### [facility] [address] [place] [address] [address] Emmanuel Hillman Triglyceride [Mass/Vol] 125 mg/dL Normal <=150 [facility] Comment on above: Performed By: #### L IPID, TSH, LIVER #### [facility] [address] [address] [address] Emmanuel Hillman VLDL CALC 25.0 mg/dL Normal [facility] Comment on above: Performed By: #### L IPID, TSH, LIVER #### [facility] [address] [place] [address] Dr. Emmanuel Hillman LIVER PROFILEon 12-16-2022 Albumin [Mass/Vol] 3.7 g/dL Normal 3.4-5.0 [facility] Comment on above: Performed By: #### L IPID, TSH, LIVER #### [facility] [address] [place] [address] Dr. Emmanuel Hillman Albumin/Globulin [Mass ratio] 0.9 {ratio} Normal [facility] Comment on above: Performed By: #### L IPID, TSH, LIVER #### [facility] [address] [place] [address] [address] Emmanuel Hillman ALP [Catalytic activity/Vol] 69 U/L Normal 46-116 [facility] Comment on above: Performed By: #### L IPID, TSH, LIVER #### [facility] [address] [address] [address] Emmanuel Hillman ALT [Catalytic activity/Vol] 34 U/L Normal 14-59 [facility] Comment on above: Performed By: #### L IPID, TSH, LIVER #### [facility] [address] [address] [address] Emmanuel Hillman AST [Catalytic activity/Vol] 17 U/L Normal 15-37 [facility] Comment on above: Performed By: #### L IPID, TSH, LIVER #### [facility] [address] [address] [address] Emmanuel ACKERMANI, CONJUGATED 0.1 mg/dL Normal 0.0-0.2 [facility] Comment on above: Performed By: #### L IPID, TSH, LIVER #### [facility] [address] [place] [address] Dr. Emmanuel Hillman Bilirubin [Mass/Vol] 0.4 mg/dL Normal 0.2-1.0 [facility] Comment on above: Performed By: #### L IPID, TSH, LIVER #### [facility] [address] [place] [address] Dr. Emmanuel Hillman Globulin (S) [Mass/Vol] 4.3 g/dL Normal [facility] Comment on above: Performed By: #### L IPID, TSH, LIVER #### [facility] [address] [place] [address] Dr. Emmanuel Hillman Protein [Mass/Vol] 8.0 g/dL Normal 6.4-8.2 [facility] Comment on above: Performed By: #### L IPID, TSH, LIVER #### [facility] [address] [place] [address] Dr. Emmanuel Hillman TSHon 12-16-2022 TSH 5.447 uIU/mL Critically high 0.358-3.740 [facility] Comment on above: Performed By: #### L IPID, TSH, LIVER #### [facility] [address] [place] [address] Dr. Emmanuel Hillman MG MAMM SCREEN 3D MEKA CADon 09-24-2022 MG MAMM SCREEN 3D MEKA CAD Patient: JUNI SHEIKH Exam Date: 09/24/2022 : 1960 Gender:F Ordering : SHAIKH Quintin CHAPIN . Admission #: [id number] Family : Order #: [id number] CLICK HERE TO VIEW EXAM RADIOLOGY REPORT [...] breast cancer at age 69. LOCATION: [facility] BREAST COMPOSITION: Scattered areas fibroglandular density. [...] PALPABLE LUMP SHOULD BE BIOPSIED. Dictated by: Celine oMlina M.D. on 09/24/2022 at 13:30 Approved by: Celine Molina M.D. on 09/24/2022 at 13:[address] [facility] LIPID PROFILEon 03-25-2022 CHOL-HDL RATIO NORM SEE BELOW Normal [facility] Comment on above: Result Comment: 3.3 - 4.4 LOW RISK 4.4 - 7.1 AVERAGE RISK 7.1 - 11.0 MODERATE RISK >11.0 HIGH RISK Performed By: #### L IPID, TSH #### [facility] [address] [address] [address] Emmanuel Hillman Cholesterol [Mass/Vol] 149 mg/dL Normal <=200 [facility] Comment on above: Performed By: #### L IPID, TSH #### [facility] [address] [address] [address] Emmanuel Hillman Cholesterol in HDL [Mass/Vol] 44 mg/dL Normal 40-60 [facility] Comment on above: Performed By: #### L IPID, TSH #### [facility] [address] [place] [address] [address] Emmanuel Hillman Cholesterol in LDL [Mass/Vol] 87.6 mg/dL Normal [facility] Comment on above: Performed By: #### L IPID, TSH #### [facility] [address] [place] [address] [address] Emmanuel Hillman Cholesterol.total/Cho lesterol in HDL [Mass ratio] 3.4 {ratio} Normal [facility] Comment on above: Performed By: #### L IPID, TSH #### [facility] [address] [place] [address] [address] Emmanuel Hillman HDL NORMAL > or = 60 mg/dl - LO W CARDIOVASCULAR RISK <40 mg/dl - HIGH CARDIOVASCULAR RISK Normal [facility] Comment on above: Performed By: #### L IPID, TSH #### [facility] [address] [address] [address] Emmanuel Hillman LDL CALC NORMAL SEE BELOW Normal [facility] Comment on above: Result Comment: <100 mg/dl OPTIMAL 100 - 129 mg/dl NEAR OR ABOVE OPTIMAL 130 - 159 mg/dl BORDERLINE HIGH 160 - 189 mg/dl HIGH >190 mg/dl VERY HIGH Performed By: #### L IPID, TSH #### [facility] [address] [place] [address] [address] Emmanuel Hillman Triglyceride [Mass/Vol] 87 mg/dL Normal <=150 [facility] Comment on above: Performed By: #### L IPID, TSH #### [facility] [address] [place] [address] [address] Emmanuel Hillman VLDL CALC 17.4 mg/dL Normal [facility] Comment on above: Performed By: #### L IPID, TSH #### [facility] [address] [place] [address] [address] Emmanuel Hillman TSHon 03-25-2022 TSH 3.614 uIU/mL Normal 0.358-3.740 [facility] Comment on above: Performed By: #### L IPID, TSH #### [facility] [address] [place] [address] Dr. Emmanuel Hillman TSH RANGE SEE BELOW Normal [facility] Comment on above: Result Comment: <0.3 4 UIU/ml HYPERTHYROID 0.34-5.60 UIU/ml EUTHYROID >5.60 UIU/ml HYPOTHYROID Performed By: #### L IPID, TSH #### [facility] [address] [place] [address] [address] Emmanuel Hillman [facility] October 11, 2021 SHAIKH VALENTE, [address] [place] [address] Re: JUNI SHEIKH Date of : 1960 Thank you for your referral of Juni Sheikh who was seen on consultation for abdominal pain, Right upper quadrant pain and nausea with vomiting. I have enclosed my consultation note for your review. I will be happy to follow Juni. Sincerely, Raymond Davalos MD General Surgery Normal [facility] Ambulatory Clinical Summaryo n 10-09-2021 Ambulatory Clinical Summary {[id number]}CD:[id number] Normal [facility] Gastroenterology Office/Clin ic Noteon 08-19-2021 Gastroenterology Office/Clinic Note Chief Complaint f/u EGD/Colon HPI Staff This is a 60 year old female who presents today for a follow up to EGD and colonoscopy. History of Present Illness The patient or their guardian verbally consented to allow Louisa Kern to record this visit. Juni Sheikh is a 60-year-old white female presents [...] rubs, murmurs or gallop. Peripheral: no edema Gastrointestinal/Abdo men: Abdomen: normal consistency and bowel sounds; no [...] consented to recording for virtual clinical documentation clerk and provider reviewed before signing. ORALIA: Dona Ramires. Follow-up With When Contact (more content not included)... Normal [facility] Comment on above: Result Comment: Elec tronically Signed By: Dona Ramires R\.br\Date and Time Signed: 08/15/21 14:52 EDT\.br\Electronically Co-Signed By: Raman HENRY MD\.wes\Date and Time Co-Signed: 08/19/21 09:50 EDT Reminderson 08-19-2021 Reminders - From: Raman HENRY MD To: [facility] - Clinical; Sent: 08/15/2021 13:23:07 EDT Show up: 08/15/2021 13:23:00 EDT Subject: Ambulatory Reminder repeat colonoscopy in 5 years Reminder/Recall Normal [facility] Coding Summary.on 07-12-2021 Coding Summary. CD:[id number] G h0bWw+PGhlYWQ+UV7MQTO qD76geKRojQ9LG0vZML2F AOPMJYKTTH4HLQ1eaNY2Z RzkH0KxvpEy ZqhguTFmYP45DSq5KPN2j EjiTJopfB8hiOTvO3f7Xe DbAM77nT77SBbsVCEeYyQ 3LjZpbjsgbWFy S5usXmQhaDZiMwx+PHRhY mxlIHdpZHRoPScxMDAlJy QfhKgtLR9hKa2tYVMfRPM vbGxhcHNlOiBj f9ouUSXnOCiwIK5rvOtsC 6MjrYQ0XFKej1m8Xa15bV I+XQUcOCS6aFyhLWtjo31 2YaIft8nfHXS7 zUYhOCpnIDO7Q58hw4Q1B KHgQYNqLUO6uFY6lM2eqP uzcmmlX5IptCAxFdV2HBO 7qFJzjG3nqBso zstnwW5qPxp+W76DMA5BK JFXTD0OXhp7C4XzMgpgrM I+RD01QXBrTM28aRVujBB jv8qwoAj2BuJj KKWjPCR0fBasSQeoz5IiR TQrU90gbWKmp1Q4LBMagB icfHYzYfTjyPR3fN4rBVl owvbbp0zbqooc Cuyho4dhou69bR46W40aS ZrzVNHhYWT7VTPsDPNunD dume0qiM1eCb3+BCzab7k yh2hgoLr5CnSq GBQeciNtcCwkJMC2e1SjW q97C4EwnGfcp9MtVrb8vn 42hPJal5U1wXZ6EXelFQM boJ4kSOrnCcD8 UAToXwQlwV50lDHtHTqzO g0nuZnffOnfKD6cZTHtsi ajKFYofM2mUHWtsSMhvKs vVC7cINKkcjsf y326BjMlQKZ7VVHfaGQvW 2UgyE0nEkDwRBGqFEVdJ4 DnxRBzRErlE385LAouGjQ 7TLRodrFnD6Dl TLSiuUdfSiX3w5V4Jk7Sa 5CmfkptDLC7XHgwZBW3Td J5ImQrXeF8J6XgLsl5FUD rcIbwHX8kJ1Zx QJCysgycntakmVH7MJZpT HSoeQ82cGOtWPorTg9na5 S2e747FMVrRENbiH30Ve6 udDogMTBwdCBU jL0priaio7qllnsfMpThX ABwCGy2AEp1SSVhkSnzUw InNBA2RiT6EAW5wAIzoM8 jmLlcfvywjD8l Oyc+E01qjE0lFVO0LZB1u rakWIIfpyRkDK75AS14R6 RyPjwvdGFibGU+PGRpdiB wiJkpKI7yKyNu b0fdy1VlLObtU5QvNKYhY DsjGsk8DLOgZQS6vIU7kG 6bOQCeWQckf9E3xXX8H8X hrfUzfj1ia1uy XEVlMNvvT56qpIIub1K5O WDqtJV7XEZxxYppBqTtnB 93Oyc+RVTamOfti7AyOaf ac7lvi9dowEq8 JjHhJSVfrmZquNyhXIS5y 2GmLk32L14cHWhsTQJkET ImEBZuMIPnbPaith2aaR8 wIi8+PGNvbCB3 tOL6kC4aUWDdEmM7TYbdJ 999AfVdvIGqWwxpx1nrw0 ixvEi0UdNgCKJyfdCrjQh uRIK3m4GiDk04 C68uZTgdTLFqTWVkYMEgT XXjsPhwsu7xeY8xCu9+PC 3nt2llsl32sN00jTS+PHR xZUK5wHdoLFeo JJHosL3oDHnjSfB0AEYsP vVkkZ40aRDzPFmwKa2wvV nzoEqoGY5eKYKbijkow14 5OxCdg3azZSAj rPZcCXtwNJQ6D99by6P5S XAfMHDtXFP1mJT3lQ0xbN lnbjogbGVmdDsgdmVydGl nOIjaJUxhX476 IHRvcDsnPlBhdGllbnQgT gKxXRd4J2ToMyw4HILroC prAF6uoPWwJWwmNe2njIg nhPcjIO7eVQBe vsqcj591HkBeo2asCVKir VZcOJvyBGT9E36ws0T0RL OgNGGoBGA2oAY0aK8vjGg nbjogbGVmdDsg hhQfxBzeLAhtNGmdQ628P HRvcDsnPkJpcnRoIERhdG Z5SZ28LK91pLNag7N6bPR 6F5HjWUBmypgv dqvwzNS0QPLoJVDyzR75A l9qhUxtQj5kEXWaZAS9WW RmzMMuS3RspZ6qIvMaRAO wXWHjA3LkiDHj VGxsU314KRzoHhT6MPIew rBkR0LpOZJikSngPoH7i0 E2Rd5NI4B1FY00RV50nEJ ny8O3zJN8N5Is ZTOrmrurgsmbpKV5VLIkU EGrcU69De6adSmqJm8fLF YuGED8LBPsfKObJ4UfhU6 yOiAjMDAwMDAw C6FjqGBlZAvqR829TVssQ qY9NUFqnpDeY9KkSPWlaM fbYfX4w4B4Jp4BSLf1DD7 6RT17iHSpe9Z9 mFH3V8TfLBNvydtkatuuj AW0VJLpMNHekK42Sq3rxW roHh4jDCRdRIX0KMOpvQL hU6NxuS0eAzJu VENrHUWhJ6BtfUIiNIacL 157WWkuIeD2DPFrixAzH7 VsYDCrrCqeUmH6z9J3Vn8 ONJWyCT41QIS2 kCJ1YG30LG47R2HyYrbgd GFibGU+PHRhYmxlIHdpZH RoPScxMDAlJyBzdHlsZT0 vXw6iLPLyHZWa kDiqsNBgSwMtx5zeBGAhW AikHH7sbAbeG5WkwPC7HM Aer1b6Wf68L20mJ1BluOQ +YGLxqPV4nLJ6 qW9tCrKgWjV2VVrwC095S pJzdAJpBuxql0pqw9uxqH d2NhU9WLYqitFyyJiePTA 6j8MaXd85D50b IHdpZHRoPSIxNSUiIHZhb Mlhjm6fbD5dFm9+PGNvbC X3bIG3jM1wBdOyWkD6DFs jH756HwBwcDIf Dvqdr4ikj8nfvAa1AsLhD QGeleToaVkzCJT4b5VlPg 31R3UakMwrz1EpGct6fg2 6uAXab7Y9hGG8 C5LtNVAqpzjgwBUftCyqN N7qTSLxaoamCWFgfB9nPI QuP1d8TdVzLtK7OZixC7T pjhM6WDLjwLWp DApgWUE9K59oi9G3KYHkC EBoNYU8gNB2bT4wdYuxco ogbGVmdDsgdmVydGljYWw vOCdgA106LPTr rWkvPVIvkP1kUHUwjWEkk XxxOW3uPTUmkjnyHqNLK9 kyWW7THbXPCC93TU54vRM ti8O9nFL0B2Fj GRAmzyabsrgmjZW8CUWpY GVelO78dLJuOXdfPp1zn6 G4s519WNWwJVQmaU25Sx1 udDogMTBwdCBU lW0dbxwwy3vtojupVeTiQ ZUfMCk5OLk6TCSwvOtfWi BzKBY1JhG6OAM4kRBaxG8 jsPdpxljmcV9o Oyc+SDSlXDPqHFq6FJrmh GQ+PJQyYPZ2vUmtTUkhNW XytT7nMQIdS7w5SaHdRyI 4ZSvpT5LoPYXg uojbHj01oL5bKrKeIgV7R TfrQ5NkowO7IXAoaQOwWU bxKAC6W92ju6T4EDFrDJQ bRTZ5bUZ4oG6s bGlnbjogbGVmdDsgdmVyd EsoBBevZOcwI671HJKrhM weNeKuINliHBKmDS33CW2 8aXQed6R0iTH3 X3EgAGXuxqqtykupeJX8E KUdUUTtbX73uSLiKHzcJc 9oe4O0z178PXAvORDyiE9 8Ry1seCkrIZFw gYMGzI2sdzxar6ilpqmmW nUdCUThIBq0SGo3QHPuhL bkQxEqRAH0PuD9MOP2tJQ grT2xjLjilioc uO8uAgc+WdTnDBgyPU38A A85gDCmi5U1gVW9M1WqWX VftcrxkshpgUZ4FFSdVXF jvA85vHWnTFlb Dg4yt4Z5o992SMFwIFLun A04Am4nzGkvHVYuwHVCiJ 1dktxre9brtrvkElUwDFN iALl0XFg4KXZh pGlrIjAgLOG6FmB7LTY5s MQecS2czIbxjigiyF9fZm c+K8X3yRD5uBJutRgdoRJ +RX81ab86B9Pa KgltJdc2ISMqOOE8gDI1q V1kVHVqDRogp5U1aIY8E3 GibaOhvd5kv9ocADDbHEl rK04isQWwi7L0 SALhcGO0GANbjPpcNaAca G93Oyc+PVKqbFkkb3HgWj qmb8lhi2cqoEa3SaWaNJF gdmFsaWduPSJ0 g1CcNu20I60jIHroCFOaY AWkYRGlEPFxvRkwhw7nxM 9wIi8+HIOcnUQ1xUU7yP6 kSkCnEiA4NEny K664CzAcgBYiEnybq0slk 4xbpPq6ZhZkXFRkcrOtgO ayFRC2a8JeLw06P8YlfIt il4XkDwa9ae62 oSDhj5K2yJJ0L9WmFKVgp iqhdYKqeTgzRI1rEETqyo vuLZJuvY3gCZLgW9c7CjE iPpP5WLlrO3Zg wwB2OMEvoIOuDFDcgCDZo G4cadzey6nfhjeaSfPwJQ VlSQs0OVh6QTTtzVonFlH uKUS6EkE2QEE2 yDEhfT8auUbglchfgY3cS yc+WGh0s1hveENpXZ6vqU C3KG49YT51vXGwq6G9yGX 5Y8YgSPKhicju nuzkbPY5UKFtTXChnS68C c3ylBhbNd5aUNZtZSP1FW VmjMNcR4FivZ8sDtXnPNP iOMRaR3JmcCWa UWugD341BDokMfI7JNTpc oAqT4JmSHPfwXpiVfX3r3 U1Eo7DHS56JA13II12xOB fa5H3zEC7L2Bz FTTqykabgmqsdMP6ZHShV DMxiZ25Fw3hnPufTy4cGQ WvJLX0SNDizUUeR6JznT5 yOiAjMDAwMDAw F2EoeWBwKUraZ497OBizK eX0SNJpzvOnJ9PiEZXhiG jnHyM6e4C3Mq4YHe99BR7 1EF15pDNck3T9 fOJ6Y8MmIVKeqbnhzwgmm EP8DOBhXNOzbW13Rq8ntT maUw7eGDLgRFF7WDRqpWS tQ5QqwY7zRqVb XEDgGPMeT9MryFReWXxpN 696KWbqNcP2LXVpheJtM9 VqSWHkzVkxMeI5f7F4Rd7 KPUsegxc4O9If PjwvdHI+DY10GQCeFV59d IRwbXXsd8apgPi4AcLsVN UmQZB3jUlpXHnca2NqXCI cG29bdNOit0N6 IGNv (more content not included)... Normal [facility] US Abdomen, Limitedon 2020 US Abdomen, [...] MD Transcribed by: VIRGIL Technologist: CARRIE Normal [facility] Consent for Treatmenton 06-03 Consent for Treatment [id number]#1 .00CD:[address] [facility] IntraOperative Documentson 0 06-25-2021 IntraOperative Documents [id number] 1.00CD:[address] [facility] Postoperative Documentson Postoperative Documents [id number]#1 .00CD:[address] [facility] Coding Summary.on 06-17-2021 Coding Summary. CD:[id number] G h0bWw+PGhlYWQ+ZF9LICR cW24woKYpnY3UE1zMFY7F HLCBLYZAVH8LFR6urJU6O YyaT8WyrvAj MozhcXRmBY74MHu2KNU2d IsaDNuwdO2vtCLkU2q6Xz GbZU37jE79FMgfQWUoIyY 3LjZpbjsgbWFy V2jkHeLehKVwVia+PHRhY mxlIHdpZHRoPScxMDAlJy HmwJvoHU0jJv6sPHYoWAH vbGxhcHNlOiBj e1zoIAWxJWztBR2jtDxnB 2LkoBR9BVUju0p1Ks80iH I+DVLtGLC3pWhmYUysk54 2SyUjo5uoOUR6 dEKjOAlcBJP8E23mi8A6G EDlCZMzXBU7gRK3kN0kyO ienlkyY3GblVOyMrI3WZP 0eTXtbB6rgNiu qbtjoQ3xJvv+W72FJN0KU IMINU1VFrf8I8XgQflmdQ I+EC14KTXoHG06mGTjpUE re9zkxWw5ZtDy MVBjOMU0qUqgNNohz3CzV PPyI33waKFrh7M1EMOluU gduPTsUaYeoLF5eJ7eZPk rovurf5pwvdub Kdrae4gqyr75vE62E48yD NjtCFCaBBB1GTMxNYWpfV lrjt3xlK0aXl1+VTprc9l lo8qaxUi7YeFw BQSuapHvwGdvAHA9j6KaK w59K7LjbMzsy4QhLbm1zp 98oETch9O0nOV3CMziSEW phM0eRCnjEfB4 LTSwWrXmjA20fQMpHLhqK o0lbAglaYhwDL7yNBOgum jtZGEkoO2xYZHtpCLmgPs rSL3gJYCheafj c856TyFgLHJ1SZPcvBKlW 6EtmH2cDoRvHIOnVPJqW2 KzhCPxLNxhI879KKxgFtB 3OTDayiLvE0Bi BFUnuUfeGpC2v9V5Eh2Mf 2SbxrggPLG1JMweQIZ4Uk C3EcUcToA5O9ZwShs2SLR koDdzIN6mQ9Mg UVXzwhmrvpqdlCL4IUWrO VSxrR01zSBwBMxpMr5od5 D1r329VYOdYWPsiS78Be6 udDogMTBwdCBU tI6weaacp5whzsbkDrYmZ VTzGNs3HKu6AFTbuIpcUb PkYOP9OkA0CFT6hSZmqT5 qsTzlnrnpcY5j Oyc+J30xdA4tEVX5LKT1s xojDFXwyqQpTQ78CF22R0 RyPjwvdGFibGU+PGRpdiB ydBghGQ9iLeYy w5bli2OhPBtyX7EnQNReS CvyGxz3BVFjHHA5nLE4kJ 9tZJCvZYuch6I6mEY7D8R qjxTrgo0vg4lc AHFaZSemQ22qqORlz5M6F STitKL3HSQvkCtdYeOdjL 93Oyc+OXGaiUzdn0WuFgb ef7bvl0fngTt7 EhDbFEXbbtDefXnyLPP4w 7MlOj42R26dWZxeTYAlJN SmATIpFXOgeSluvo3fcA5 wIi8+PGNvbCB3 qRE3wR9hJZWaZoM2DXitW 492StDvqGLaMhulp4wvp3 ajfFz9VfAyNEJrzdUerUm aAKJ3g0DtVv49 B47bCFymSYXkCOBiXBVqA YGzbWcpxc4ybH3mJy9+PC 6dk2ivhx76zO90xWG+PHR cKEV9fOdmHSyy JHCdiT7lFPkqAzU4YUKmT nFilT42qQHvRHkvZt5yoV qjsUteUB7pXSTrpvifz30 3JpNor6csHPRv dTQkVSlaJCZ4U51up3I4M TXwQRJpSSZ3qBL5gS0aaS lnbjogbGVmdDsgdmVydGl zPHjgTDfdV090 IHRvcDsnPlBhdGllbnQgT kEhRVy4Y6PgPpl0UQKxmE ynUE0avEFrPLycQb4dmFb yeRsbIN4dPLTh xmqng411EhGkk4jaKZVif VNyAXyqYAP2B50xr1F0AI EsUYNnUQW6lNX1kA7hdWs nbjogbGVmdDsg yiLyxEfzTLouYHedU840X HRvcDsnPkJpcnRoIERhdG B3VU05EZ41aWQuh2R0dRM 9K5QkPHAxevbi tetrbFU4ANLzAVUlqG77B i8dbWunZk1pXZXtQTS0AK UbbCAzE6QboL7xFqHyFHT dIZIxH1TkmLTv BIznV314WLcbObU3RAKch qIxS0UyQLQvnZskRsF3a4 V5Mq7VS2Q0TP69BI35zBA eh4T5xMG9H3Xk YSCdbzeyzaaheYT6ZSWxR MUmdA76Qt0daShgTi5uTU ZwGDF6YDInePDxR1BggO2 yOiAjMDAwMDAw K7WaqEYxXBlkI453XQruN zP0WZDpjjHoR8XrHRRmzE hjXmK1j1E9Po0LSDr1YV1 0ME11bWAuv4H5 eSZ8O8LlDAFreikknjmja PN5EPBhOANdcW92Yz4mkE kaRt3uXDTiPMN6PAKqxBO dJ6MkuC5aSeKt CCTcQYXiP2OntPJwIQsdQ 334WMfaNtS1FWIsthBbU1 PqSLKmeQenAvY6t7E0Ny1 TLYHqFT19JFM2 zXA2ZM86IH94W5SpMytyx GFibGU+PHRhYmxlIHdpZH RoPScxMDAlJyBzdHlsZT0 jUr1zHBMuFPZs zHuvkKDuVwOqt7fvCGZzW MycNC7ceRpcO5AynGA2YX Llh6j0Kw79P48cK8GawKF +UYUcmJP7eUN7 mY1mZiAmSkD3UYcgG106J xUuvCAxEnenn0rgr9iswN x5QsR8RBIicaQvrTjePYG 7p4JmHy08B96u IHdpZHRoPSIxNSUiIHZhb Vedhd1qjF1xLa5+PGNvbC F4lCV4zB4jQoBkNvD2PHs iU074LhGqeTTu Dybci9dvq1ztyYc3PzKyD JIcvgQccPqdJXR0q1DnBq 25M9LwfDmew6FxTwc5ir6 2kJJwk3A6qUV1 F4TcWGXeecgzlRWluUpvR J0qHTHelkqcBZUyhX3oDT PjG2s8QzTaXhB5UZeuB9R ymzF3KTPobHWi PUzfYDG1Y47yu9U7ZKZyZ TTjXRR6jNL4pZ4rnXisur ogbGVmdDsgdmVydGljYWw eAHblY242IIVm aYslSCHvwA8fXHAgsFYti KwtTE5nMGRhbpjrLwJPF0 nfPX5UQbIMQY71KY73dMR gd2P7gQJ9F1Vc AZIulxxmwddvxOI1KDPpJ BJspV13mWLdLMvuOh0vw2 R7d466XBRrWLTtbH44Ny1 udDogMTBwdCBU uQ4wbksxz8dnjxigJdFwM YZwTRo5RIv3RHEpzOigSk CdQNF8AwP6QGO5tLGrwN5 gbHwnbgtgcI5u Oyc+WSIrAERrAOv0RKwdf GQ+XGXoLQP2rRbrEDbfFA JkvA7wIHWbF2v8VnKsHqP 4UZobZ3DeWQMv uztvOi47sX2kBhNtIzA9H WcwZ3XidyE5DDEgpADePF meLOF3L87zb9I0ZFLhKKI kTQD9uEV5iW9l bGlnbjogbGVmdDsgdmVyd MndHZqvPPpuP746CXVwqN tbVyOqAOxsJTYrXC65MJ1 4fSDta7Y2mJQ4 T1CeEINrqngwvsnpxPQ9N SHjDRBbmY64kQVlBHpeJi 3iw5E7r230XFHbHILmiZ3 5Sa6keVgtXYUz bTWMzG1jhmbjw7irctogZ aBfQMVpQOt7CRi9EIWiiU agGwLyVUY1GrM4PUN5yLL btB4pxBdaerir xV1iTbo+TuWaNBqqIT35C O27oGZie7Z0zPG5V9WiER VbyyjeajluxPN2AKMrRXU uhW95fVHuUNgp Fk3mx6D1a614DRZgKYWwu V90Ud0qjTceWKUgsEAAqK 9cakjes7fbdrkdVvLmXCX rGVj3XQp0WXUi eGrwJbYzQFT6SpB7LNW8b AAevJ9waDdhkkqlzR0sHe c+K9H0bPA0xIFxsMlzdZA +YR21zo38J7Vk VrizNiq8JFHwEIT3pRP2g G9vLFYqNDkjo3I2tPJ7T0 HfgoPkqi5ag6mvSGZcRFq hW43uhZRds5K4 JASxoEW0RBKzpYcsXwCgf G93Oyc+BOEemMuss1HpNq lrk2jdy2dtrXv0XbAaINV gdmFsaWduPSJ0 e6TmTq62B05gANvhKKBgU UXwQPEwWMNdrBydme0ovH 9wIi8+BDFkpBT3aOU5hZ2 uFxRtPjB0NOiv O453UmVzeUHnVmlcp7zws 1fymWk5BkIgGDAlgiNscG qbHRF9f2ZbVt59X2NagJt rv2XzWet0qz09 eEAkv3T4jUP5O9LwLQKje wyvpVDowPbxPB9kHEAudc zpOKOtoF3lWPHdL1a3OgH sLvA6TCqaX3Ne skO9DVZcyFHlZGTotARAl I3pllahi9wrpwkhWgDvSX FzYLw5IGi1UGCfmHqkSsH sHUZ3TeM5YHN8 dCZhdC8ciCjujvskyF1aY yc+KKr5u1lgzJRoQM6egF P0BU80EY81mTHlw8I9sUP 8V0KwIFHpnugm ofwwgUD2VUEzEZPkzF88H h4gwJszWj6rOTXaVTH9IN GemGXyA5FnrW9rCgZmDAE cEIAoK5XesMHp NInnY016GXpnPaO2CREru gXpX2BaSFZcxYuhNuR5z2 K4Mi0WZC70AE93QT02iIG bj6M6tQU9V1Ix DQYqjanugzcboJS2IJXsC WVnaL50Df9kxGfcIh2iVJ DhVBE9PPPdvNNbJ8CebX1 yOiAjMDAwMDAw V1BpkEHzZRowX533BGnyD sZ4TWGmgwAlW0KyCROtzS uyTfW5l5Y1Lb7BBx31FG8 0IN19wQSqb5W5 mFO6E1KwOVUtpthawuyrp GN3HHBaLLWyiZ26Kt4qwS naIa2pVBDxFPW1HSSerCM mI8BzhW4sRwGh MXNmTHFpL9GoqHOmTBbuI 380HRrqHxV6MQEwfxDaZ2 HzCKKwvYtxPnK9d5L6Yw1 UQJzdpmp5D0Rg PjwvdHI+DR45MGZaOK16n BIdwKGtq2brcZp3SbNnZH HyMYS7sHjvIOdqn1RoQYV iW47ikIKku8S2 IGNv (more content not included)... Normal [facility] Main OR Intraoperative Recor don 06-17-2021 Main OR Intraoperative Record IntraOp Document Type FT Summary Primary Physician: Raman HENRY MD Finalized Date/Time: 06/17/21 09:30:46 Pt. Name: TRACIE JUNIMIRANDA Márquez/Sex: 1960 Female Med Rec #: [id number] Physician: Raman HENRY MD Financial #: [id number] Pt. Type: O Room/Bed: / Admit/Disch: 06/12/21 [...] Kay RN, Mikayla Toth Role Performed Anesthesiologist Director Of Radio Services - Primary Scrub - Primary Rn Hospice Time In 06/12/21 12:49:00 06/12/21 12:49:00 06/12/21 12:49:00 Time Out 06/12/21 13:10:00 06/12/21 13:10:00 06/12/21 13:10:00 Procedure EGD AND COLONOSCOPY(.) EGD AND COLONOSCOPY(.) EGD AND COLONOSCOPY(.) Comments DR. DUNBAR SUPERVISING Last Modified By: Ita Childress RN, RN, Angela Workman RN, Angela 06/12/21 14:49:23 06/12/21 13:11:07 06/12/21 13:11:07 Entry [...] and tissue Entry 1 Skin Integrity Intact, [place], Warm, and Skin Abnormality No Dry Outcomes [...] of positioning (more content not included)... Normal [facility] Consenton 06-13-2021 Consent [id number]#1 .00CD:[address] [facility] Discharge Instructionson Discharge Instructions [id number]#1 .00CD:[address] [facility] IntraOperative Documentson 0 06-13-2021 IntraOperative Documents [id number]#1 .00CD:127 [facility] IntraOperative Documents [id number]#1 .00CD:[address] [facility] CBC w/Indiceson 06-12-2021 Erythrocyte distribution width (RBC) [Ratio] 15.6 % High 10.9-14.[address] [facility] Comment on above: Performed By: #### 2 [id number], [id number], 3070111, 8552274 ####[facility] [address] [place] [address] Hematocrit (Bld) [Volume fraction] 36.8 % Normal 34.0-46.[address] [facility] Comment on above: Performed By: #### 2 843264, [id number], 7220613, 2401692 ####[place] [address] [place] [id number] Hemoglobin (Bld) [Mass/Vol] 12.5 g/dL Normal 12.0-16.[address] [facility] Comment on above: Performed By: #### 2 763220, 72270541, 6741054, 7565810 ####[facility] [address] [place], [place] [id number] MCH (RBC) [Entitic mass] 28.6 pg Normal 27.0-34.[address] [facility] Comment on above: Performed By: #### 2 196382, 10557624, 6345299, 7870436 ####[facility] [address] [place] [address] MCHC (RBC) [Mass/Vol] 33.8 g/dL Normal 31.4-36.0 [facility] Comment on above: Performed By: #### 2 787013, 68498078, 5491556, 1147681 ####[facility] [address] [place] [address] MCV (RBC) [Entitic vol] 84.5 fL Normal 80.0-100.[address] [facility] Comment on above: Performed By: #### 2 723190, 94672752, 4421357, 9871567 ####[address] [address] Platelet mean volume (Bld) [Entitic vol] 8.0 fL Normal 6.4-10.[address] [facility] Comment on above: Performed By: #### 2 687386, 51371345, 0426657, 2939364 ####[place] [address] [place] [address] Platelets (Bld) [#/Vol] 186.0 E9/L Normal 150.0-500.[address] [facility] Comment on above: Performed By: #### 2 452105, 38513894, 2067637, 8462158 ####[address] [address] RBC (Bld) [#/Vol] 4.4 E12/L Normal 4.3-5.[address] [facility] Comment on above: Performed By: #### 2 291050, 45688823, 3193834, 6972029 ####[address] [address] WBC corrected for nucl RBC Auto (Bld) [#/Vol] 5.7 E9/L Normal 4.0-11.[address] [facility] Comment on above: Performed By: #### 2 867551, 72512860, 2068622, 5490115 ####[address] [address] CMPon 06-12-2021 Albumin [Mass/Vol] 3.9 g/dL Normal 3.3-5.[address] [facility] Comment on above: Performed By: #### 2 989432, 29627707, 8602117, 3430593 ####[address] [address] Albumin/Globulin (S) [Mass conc ratio] 1.2 Normal 1.1-2.[address] [facility] Comment on above: Performed By: #### 2 775443, 54834671, 7917295, 7503342 ####[address] [place] [place] [address] ALP [Catalytic activity/Vol] 56 Int._Unit/L Normal 21-[address] [facility] Comment on above: Performed By: #### 2 392678, 25996969, 6335836, 4935841 ####[facility] [address] [place], [place] [address] ALT No additional P-5'-P [Catalytic activity/Vol] 23 Int._Unit/L Normal 6-[address] [facility] Comment on above: Performed By: #### 2 [id number], [id number], [id number], [id number] ####[facility] [address] [place] [address] Anion gap [Moles/Vol] 13 mmol/L Normal 6-16 [facility] Comment on above: Performed By: #### 2 [id number], [id number], 0647921, [id number] ####[facility] [address] [place] [address] AST [Catalytic activity/Vol] 18 Int._Unit/L Normal 5-[address] [facility] Comment on above: Performed By: #### 2 945345, [id number], 3347314, 6328764 ####[facility] [address] [place] [address] Bilirubin [Mass/Vol] 0.6 mg/dL Normal 0.0-1.1 [facility] Comment on above: Performed By: #### 2 005778, [id number], 1833198, 5468708 ####[address] [place] [address] Calcium [Mass/Vol] 9.0 mg/dL Normal 8.9-11.[address] [facility] Comment on above: Performed By: #### 2 550480, [id number], 4391189, 4667781 ####[facility] [address] [place] [address] Chloride [Moles/Vol] 111 mmol/L Normal 101-111 [facility] Comment on above: Performed By: #### 2 758199, [id number], 7794735, 1331559 ####[facility] [address] [place] [address] CO2 [Moles/Vol] 25 mmol/L Normal 21-31 [facility] Comment on above: Performed By: #### 2 570486, [id number], 0578983, 3385536 ####[facility] [address] [place] [address] Creatinine [Mass/Vol] 0.7 mg/dL Normal 0.5-1.3 [facility] Comment on above: Performed By: #### 2 715686, [id number], 1054265, 7804385 ####[facility] [address] [place] [address] Globulin (S) [Mass/Vol] 3.4 g/dL Normal 1.4-4.[address] [facility] Comment on above: Performed By: #### 2 996397, 36892399, 2342278, 8642199 ####[facility] [address] [place] [address] Glucose [Mass/Vol] 99 mg/dL Normal 55-[address] [facility] Comment on above: Result Comment: If t his glucose result represents a fasting glucose, interpretation should refer to the following reference range: 55-99 mg/dL Performed By: #### 2 098262, [id number], 3965082, 1072372 ####[facility] [address] [place] [address] Potassium [Moles/Vol] 3.6 mmol/L Normal 3.5-5.3 [facility] Comment on above: Performed By: #### 2 462337, 71157526, 8217588, 9578874 ####[facility] [address] [place] [address] Protein [Mass/Vol] 7.3 g/dL Normal 6.0-7.[address] [facility] Comment on above: Performed By: #### 2 775515, 88542048, 7509241, 6739951 ####[facility] [address] [place] [address] Sodium [Moles/Vol] 145 mmol/L Normal 135-[address] [facility] Comment on above: Performed By: #### 2 649639, 81908387, 6699462, 0579579 ####[facility] [address] [place] [address] Urea nitrogen [Mass/Vol] 10 mg/dL Normal 5-[address] [facility] Comment on above: Performed By: #### 2 349627, 32278717, 0830782, 0898645 ####[facility] [address] [place] [address] Urea nitrogen/Creatinine [Mass ratio] 14 No Units Normal 10-[address] [facility] Comment on above: Performed By: #### 2 309913, 75732595, 4821674, 9613947 ####[facility] [address] [place] [address] Consent for Treatmenton 06-02 Consent for Treatment [id number]:[address] [facility] Endoscopic Procedure Report - Otheron 06-12-2021 Endoscopic Procedure Report - Other Patient: JUNI SHEIKH Age: 60 years Sex: Female : [...] Pre-procedure diagnosis: Unexplained chronic abdominal pain. Medications Anticoagulant/antipla telet None. ASA Classification: Class II. . Procedure [...] Small nonbleeding internal hemorrhoids Images Procedure images: [id number] _[id number]_hd_[id number]_ _[id number] . Post-Procedure Complications: none. Estimated blood loss: [...] Return to activities:: After [address] hours. [address] [facility] Comment on above: Result Comment: Elec tronically Signed By: Raman HENRY MD\.br\Date and Time Signed: 06/12/21 13:09 EDT Other Comment: Darlin diaz Attachment - attachment storage system not supported [id number] Can be viewed in source systemMissing Attachment - attachment storage system not supported [id number] Can be viewed in source system Endoscopic Procedure Report - Other Patient: JUNI SHEIKH Age: 60 years Sex: Female : 1960 Associated Diagnoses: None Author: Raman HENRY MD Pre-Procedure Procedure Date 06/12/2021 12:55:00 . Procedure Type: Esophagogastroduodeno scopy. Procedure provider Performed by Raman Henry MD. Current history and physical Documented on chart. Informed Consent After discussing the rationale, risks and benefits, and alternatives to this procedure, the patient provided signed consent for the procedure. Pre-procedure diagnosis: Epigastric pain. Medications Anticoagulant/antipla telet No anticoagulation or antiplatelet. ASA Classification: Class [...] Gallbladder ultrasound, CBC, CMP and lipase Normal [facility] Comment on above: Result Comment: Elec tronically Signed By: Raman HENRY MD\.br\Date and Time Signed: 06/12/21 13:08 EDT Other Comment: Darlin diaz Attachment - attachment storage system not supported [id number] Can be viewed in source systemMissing Attachment - attachment storage system not supported [id number] Can be viewed in source systemMissing Attachment - attachment storage system not supported [id number] Can be viewed in source systemMissing Attachment - attachment storage system not supported [id number] Can be viewed in source system Inpatient Patient Summaryon 06-12-2021 Inpatient Patient Summary [place] [id number] [facility] Clinical Discharge Instructions PERSON INFORMATION Name: JUNI SHEKIH PHYSICIANS Admitting Physician: Raman HENRY MD Attending [...] Capsules By Mouth every day. Comment: Normal [facility] Lipase Levelon 06-12-2021 Lipase [Catalytic activity/Vol] 23 U/L Normal 13-[address] [facility] Comment on above: Performed By: #### 2 [id number], [id number], 0591557, 2260518 ####[facility] [address] [place] [address] Main OR PACU I Recordon 06-02 Main OR PACU I Record PACU Phase I Docum ent Type FT Summary Primary Physician: Raman HENRY MD Finalized Date/Time: 06/12/21 14:39:20 Pt. Name: JUNI SHEIKH Willi/Sex: 1960 Female Med Rec #: [id number] Physician: Raman HENRY MD Financial #: [id number] Pt. Type: O Room/Bed: / Admit/Disch: 06/12/21 [...] Dolores De Leon RN 06/12/21 14:[address] [facility] Main OR Preoperative Recordo n 06-12-2021 Main OR Preoperative Record Holding Area Document Type FT Summary Primary Physician: Raman HENRY MD Finalized Date/Time: 06/12/21 11:42:13 Pt. Name: JUNI SHEIKH/Sex: 1960 Female Med Rec #: [id number] Physician: Raman HENRY MD Financial #: [id number] Pt. Type: O Room/Bed: / Admit/Disch: 06/12/21 [...] By: Rosie Bravo RN 06/12/21 11:[address] [facility] Monitor Recordon 06-12-2021 Monitor Record [id number] [id number]:[address] [facility] Outpatient Surgery Discharge Instructionon 06-12-2021 Outpatient Surgery Discharge Instruction [address] [address] Patient Discharge Instructions PERSON INFORMATION Name: JUNI SHEIKH Date of : 1960 Current Date: 06/12/2021 13:10:48 PHYSICIANS Admitting Physician: Raman HENRY MD Discharge Diagnosis: Esophageal inlet patch JUNI SHEIKH has been given the following list [...] THE NEAREST EMERGENCY ROOM OR CALL 911 Shantel, JUNI SHEIKH, have received the attached patient education materials/instruction s and have verbalized understanding: May we do a follow up call? Yes No I was present when discharge instructions were given Patient Signature Date Clinican/Nurse Signature Date Follow up: Pharmacy Information: Adonay Haddad- [...] to serve you. Thank you for choosing [facility] HERE ARE THE MEDICATION CHANGES THAT OCCURRED [...] Mouth every day. PATIENT EDUCATION INFORMATION Instructions: [facility] Patient Education - Texton 0 06-12-2021 Patient Education - Text [facility] Progress Note-Physicianon Progress Note-Physician Patient: JUNI SHEIKH Age: 60 years Sex: Female : [...] mmHg (JUN 12:) SpO2 96 % (JUN 12) Weight 101.2 kg (JUN 12:) Height 166 cm (JUN 12:) BMI 36.73 (JUN 12:) Pain assessment: Pain Assessment 06/12/2021 13:11 EDT Pain Symptoms Self Report No, able to self report . Respiratory: Adequate air exchange with gnosticism of preoperative function.. Cardiovascular: Cardiovascular function is stable and has returned to preoperative levels.. Neurologic: Pt has returned to preoperative baseline.. Review / Management Condition: Stable. Assessment Anesthetic outcome No anesthetic complications noted. Plan Transfer/ Discharge: Patient can be discharged from PACU when criteria met. Condition good. Normal [facility] Comment on above: Result Comment: Elec tronically Signed By: Albert Dunbar JR, DO\.br\Date and Time Signed: 06/12/21 14:43 EDT Progress Note-Physician Patient: JUNI SHEIKH Age: 60 years Sex: Female : 1960 Associated Diagnoses: None Author: Albert Dunbar JR, DO Postoperative Information Post Operative Note: Post Anesthesia Care Unit. Anesthetic utilized: General, Monitored anesthesia care. Health Status Allergies: Allergic Reactions (Selected) No Known Allergies No Known Medication Allergies Current medications: (Selected) Prescriptions Prescribed Plenvu oral powder for reconstitution: See Instructions, 1 EA, Refill(s) 0, PER PHYSICIAN INSTRUCTIONS, [facility], 166, cm, 04/23/21 9:16:00 EDT, [...] data available Respiratory: Adequate air exchange with gnosticism of preoperative function.. Cardiovascular: Cardiovascular function is stable and has returned to preoperative levels.. Neurologic: Pt has returned to preoperative baseline.. Review / Management Condition: Stable. Assessment Anesthetic outcome No anesthetic complications noted. Plan Transfer/ Discharge: Patient can be discharged from PACU when criteria met. Condition good. Normal [facility] Comment on above: Result Comment: Elec tronically Signed By: Albert Dunbar JR, DO eGFRon 06-12-2021 GFR/1.73 sq M.predicted among blacks MDRD (S/P/Bld) [Vol rate/Area] mL/min/{1.73_m2} Normal >=[address] [facility] Comment on above: Order Comment: Order added by Discern Expert. Result Comment: eGFR is race adjusted. AA=. Performed By: #### 2 [id number], [id number], 8110944, [id number] ####[facility] [address] [place] [address] GFR/1.73 sq M.predicted among non-blacks MDRD (S/P/Bld) [Vol rate/Area] mL/min/{1.73_m2} Normal >=[address] [facility] Comment on above: Order Comment: Order added by Discern Expert. Result Comment: Homicide Investigator precious kidney disease could be indicated at eGFR's of less than 60 mL/min/1.73m2. Kidney failure is indicated at less than 15 mL/min/1.73m2. Performed By: #### 2 433656, [id number], 1628893, 6796072 ####[facility] [address] [place] [address] Progress Note-Physicianon Progress Note-Physician Patient: JUNI SHEIKH Age: 60 years Sex: Female : [...] 1 EA, Refill(s) 0, PER PHYSICIAN INSTRUCTIONS, [facility], 166, cm, 04/23/21 9:16:00 [...] products, and offered counseling if desired.. Normal [facility] Comment on above: Result Comment: Elec tronically Signed By: Albert Dunbar JR, DO.br\Date and Time Signed: 06/11/21 14:42 EDT Vital Signs Date Time Vital Sign Value Performing Clinician Temitope tamez 08-17-2025 10:55-0400 Body height 162.56 cm Marlen Ly DO Work Phone: [facility] 08-17-2025 10:55-0400 Body mass index (BMI) [Ratio] 37.5 kg/m2 Marlen Ly DO Work Phone: [facility] 08-17-2025 10:55-0400 Body weight 99.33 kg Marlen Ly DO Work Phone: [facility] 08-17-2025 10:55-0400 Diastolic blood pressure 76 mm[Hg] Marlen Ly DO Work Phone: [facility] 08-17-2025 10:55-0400 Heart rate 73 /min Marlen Ly DO Work Phone: [facility] 08-17-2025 10:55-0400 Respiratory rate 20 /min Marlen Ly DO Work Phone: [facility] 08-17-2025 10:55-0400 SaO2% (BldA) [Mass fraction] 96 % Marlen Ly DO Work Phone: [facility] 08-17-2025 10:55-0400 Systolic blood pressure 130 mm[Hg] Marlen Ly DO Work Phone: [facility] 05-31-2025 14:35-0400 Diastolic blood pressure 77 mm[Hg] Charo Baker MD Work Phone: 1(120)[phone] [place] [address] 05-31-2025 14:35-0400 Heart rate 74 /min Charo Baker MD Work Phone: 9(727)[phone] [place] [address] 05-31-2025 14:35-0400 Respiratory rate 17 /min Charo Baker MD Work Phone: 7(679)[phone] [place] [address] 05-31-2025 14:35-0400 SaO2% (BldA) [Mass fraction] 94 % Charo Baker MD Work Phone: 9(277)971-839390 [place] [address] 05-31-2025 14:35-0400 Systolic blood pressure 127 mm[Hg] Charo Baker MD Work Phone: 4(259)[phone] [place] [address] 05-31-2025 12:22-0400 Body height 162.56 cm Charo Baker MD Work Phone: 2(778)638-366090 [place] [address] 05-31-2025 12:22-0400 Body weight 95.25 kg Charo Baker MD Work Phone: 5(777)665-916290 [place] [address] 05-15-2025 10:22-0400 Body height 162.56 cm Charo Baker MD Work Phone: 0(838)[phone] [place] [address] 05-15-2025 10:22-0400 Body mass index (BMI) [Ratio] 37.8 kg/m2 Charo Baker MD Work Phone: 8(762)[phone] [place] [address] 05-15-2025 10:22-0400 Body weight 99.79 kg Charo Baker MD Work Phone: 7(451)[phone] [place] [address] 05-15-2025 10:22-0400 Diastolic blood pressure 75 mm[Hg] Charo Baker MD Work Phone: 3(784)856-969890 [place] [address] 05-15-2025 10:22-0400 Heart rate 78 /min Charo Baker MD Work Phone: 4(696)[phone] [place] [address] 05-15-2025 10:22-0400 Systolic blood pressure 148 mm[Hg] Charo Baker MD Work Phone: [facility] 05-10-2025 10:50-0400 Body height 165.1 cm Zachary Aldana MD Work Phone: [facility] 05-10-2025 10:50-0400 Body mass index (BMI) [Ratio] 37.28 kg/m2 Zachary Aldana MD Work Phone: [facility] 05-10-2025 10:50-0400 Body temperature 95.7 [degF] Zachary Aldana MD Work Phone: [facility] 05-10-2025 10:50-0400 Body weight 101.61 kg Zachary Aldana MD Work Phone: [facility] 05-10-2025 10:50-0400 Diastolic blood pressure 72 mm[Hg] Zachary Aldana MD Work Phone: [facility] 05-10-2025 10:50-0400 Heart rate 91 /min Zachary Aldana MD Work Phone: [facility] 05-10-2025 10:50-0400 Respiratory rate 22 /min Zachary Aldana MD Work Phone: [facility] 05-10-2025 10:50-0400 SaO2% (BldA) [Mass fraction] 97 % Zachary Aldana MD Work Phone: [facility] 05-10-2025 10:50-0400 Systolic blood pressure 150 mm[Hg] Zachary Aldana MD Work Phone: [facility] 04-25-2025 16:28-0400 Body temperature 97.2 [degF] Leroy Zacarias DO Work Phone: [facility] 04-25-2025 16:28-0400 Diastolic blood pressure 76 mm[Hg] Leroy Zacarias DO Work Phone: [facility] 04-25-2025 16:28-0400 Heart rate 85 /min Leroy Zacarias DO Work Phone: [facility] 04-25-2025 16:28-0400 SaO2% (BldA) [Mass fraction] 97 % Leroy Zacarias DO Work Phone: [facility] 04-25-2025 16:28-0400 Systolic blood pressure 138 mm[Hg] Leroy Zacarias DO Work Phone: [facility] 02-23-2025 10:25-0400 Body height 165.1 cm Zachary Aldana MD Work Phone: [facility] 02-23-2025 10:25-0400 Body mass index (BMI) [Ratio] 36.44 kg/m2 Zachary Aldana MD Work Phone: [facility] 02-23-2025 10:25-0400 Body temperature 97.3 [degF] Zachary Aldana MD Work Phone: [facility] 02-23-2025 10:25-0400 Body weight 99.34 kg Zachary Aldana MD Work Phone: [facility] 02-23-2025 10:25-0400 Diastolic blood pressure 90 mm[Hg] Zachary Aldana MD Work Phone: [facility] 02-23-2025 10:25-0400 Heart rate 99 /min Zachary Aldana MD Work Phone: [facility] 02-23-2025 10:25-0400 Respiratory rate 20 /min Zachary Aldana MD Work Phone: [facility] 02-23-2025 10:25-0400 SaO2% (BldA) [Mass fraction] 96 % Zachary Aldana MD Work Phone: [facility] 02-23-2025 10:25-0400 Systolic blood pressure 154 mm[Hg] Zachary Aldana MD Work Phone: [facility] 11-30-2024 13:01-0500 Body height 165.1 cm Ben Turpin NP Work Phone: [facility] 11-30-2024 13:01-0500 Body mass index (BMI) [Ratio] 36.01 kg/m2 Ben Turpin FACILITIES CLERK Work Phone: [facility] 11-30-2024 13:01-0500 Body temperature 97.2 [degF] Ben Turpin FACILITIES CLERK Work Phone: [facility] 11-30-2024 13:01-0500 Body weight 98.16 kg Ben Turpin FACILITIES CLERK Work Phone: [facility] 11-30-2024 13:01-0500 Diastolic blood pressure 68 mm[Hg] Ben Turpin FACILITIES CLERK Work Phone: [facility] 11-30-2024 13:01-0500 Heart rate 108 /min Ben Turpin FACILITIES CLERK Work Phone: [facility] 11-30-2024 13:01-0500 Respiratory rate 16 /min Ben Turpin FACILITIES CLERK Work Phone: [facility] 11-30-2024 13:01-0500 SaO2% (BldA) [Mass fraction] 95 % Ben Turpin FACILITIES CLERK Work Phone: [facility] 11-30-2024 13:01-0500 Systolic blood pressure 140 mm[Hg] Ben Turpin FACILITIES CLERK Work Phone: [facility] 12-27-2023 12:30-0500 Body height 165.1 cm [facility] 12-27-2023 12:30-0500 Body mass index (BMI) [Ratio] 36.3 kg/m2 [facility] 12-27-2023 12:30-0500 Body temperature 98.2 [degF] [facility] 12-27-2023 12:30-0500 Body weight 99.1 kg [facility] 12-27-2023 12:30-0500 Heart rate 74 /min [facility] 12-27-2023 12:30-0500 Respiratory rate 18 /min [facility] 12-27-2023 12:30-0500 SaO2% (BldA) [Mass fraction] 97 % [facility] Encounters Encounter Date Encounter Type Care Provider Facility Start: 08-17-2025 End: 08-17-2025 ambulatory Marlen L Ly DO Work Phone: [facility] Work Phone: Start: 08-17-2025 End: 08-17-2025 Patient encounter procedure Maddison Kaitlin DO -[facility] Work Phone: Start: 06-21-2025 End: 06-21-2025 ambulatory [facility] Start: 06-21-[address] [facility] Start: 06-20-2025 End: 06-20-2025 ambulatory [facility] Start: 06-01-2025 End: 06-01-2025 Telephone encounter Zachary Aldana MD Work Phone: [facility] Start: 05-31-2025 End: 05-31-2025 ambulatory Marlen L Ly Facility:[facility] Start: 05-31-2025 Non-patient / Non-visit Marlen L Ly DO -[facility] Work Phone: Start: 05-19-2025 End: 05-19-2025 Clinisync Result Encounter Zachary Aldana MD Work Phone: [facility] Unsolicited Start: 05-19-2025 End: 05-19-2025 Clinisync Result Encounter Zachary Aldana MD Work Phone: [facility] Unsolicited Start: 05-15-2025 End: 05-15-2025 ambulatory Charo Baker MD Work Phone: [facility] Work Phone: Start: 05-15-2025 End: 05-15-2025 Patient encounter procedure Fortino Walter APRN -[facility] Work Phone: Start: 05-10-2025 End: 05-10-2025 Bamboo flowsheet Zachary Aldana MD Work Phone: [facility] Start: 05-10-2025 End: 05-10-2025 Bamboo flowsheet Zachary Aldana MD Work Phone: [facility] Start: 05-10-2025 End: 05-10-2025 Office outpatient visit 25 minutes Zachary Aldana MD Work Phone: [facility] Comment on above: Degeneration of inte rvertebral disc of lumbar region with discogenic back pain (Primary Dx); Gastroesophageal reflux disease without esophagitis; Globus sensation Start: 05-10-2025 End: 05-10-2025 ambulatory ZACHARY ALDANA Not Available Start: 04-25-2025 End: 04-25-2025 ambulatory LEROY ZACARIAS Not Available Start: 04-25-2025 End: 04-25-2025 Office outpatient visit 25 minutes Leroy Zacarias DO Work Phone: [facility] Comment on above: Strain of left calf muscle (Primary Dx); Left knee pain, unspecified chronicity Start: 04-24-2025 End: 07-04-2025 Telephone encounter Zachary Aldana MD Work Phone: [facility] Start: 02-23-2025 End: 02-23-2025 Bamboo flowsheet Zachary Aldana MD Work Phone: [facility] Start: 02-23-2025 End: 02-23-2025 Bamboo flowsheet Zachary Aldana MD Work Phone: [facility] Start: 02-23-2025 End: 02-23-2025 Clinisync Result Encounter Zachary Aldana MD Work Phone: [facility] External Department Unsolicited Start: 02-23-2025 End: 02-23-2025 ambulatory ZACHARY ALDANA Not Available Start: 02-23-2025 End: 02-23-2025 Office outpatient visit 25 minutes Zachary Aldana MD Work Phone: [facility] Comment on above: 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 (Primary Dx); Gastroesophageal reflux disease without esophagitis; Class 2 severe obesity due to excess calories with serious comorbidity and body mass index (BMI) of 36.0 to 36.9 in adult (CMS/HCC); Dyslipidemia (CMS/HCC) Start: 12-16-2024 End: 12-16-2024 Clinisync Result Encounter Ben Turpin FACILITIES CLERK Work Phone: [facility] External Department Unsolicited Start: 12-16-2024 End: 12-16-2024 Clinisync Result Encounter Ben Carlislek FACILITIES CLERK Work Phone: [facility] External Department Unsolicited Start: 11-30-2024 End: 11-30-2024 Bamboo flowsheet Ben Trevinotrick FACILITIES CLERK Work Phone: [facility] Start: 11-30-2024 End: 11-30-2024 Bamboo flowsheet Ben Trevinotrick FACILITIES CLERK Work Phone: [facility] Start: 11-30-2024 End: 11-30-2024 Office outpatient visit 15 minutes Ben Turpin FACILITIES CLERK Work Phone: [facility] Comment on above: Other hyperlipidemia (CMS/HCC) (Primary Dx); Viral upper respiratory tract infection; Encounter for screening mammogram for malignant neoplasm of breast; Gastroesophageal reflux disease without esophagitis Start: 11-30-2024 End: 11-30-2024 ambulatory BEN TREVINOTRICK Not Available Start: 11-28-2024 End: 11-28-2024 Refill Ben Carlislek FACILITIES CLERK Work Phone: [facility] Comment on above: Other specified hypo thyroidism (CMS/HCC) Hyperlipidemia, unsp ecified hyperlipidemia type (CMS/HCC) Start: 05-17-2024 End: 02-23-2025 Patient encounter status Ben Turpin FACILITIES CLERK Work Phone: [facility] Start: 05-17-2024 End: 05-17-2024 ambulatory VAIL FAWWAD Not Available Start: 12-27-2023 End: 12-27-2023 ambulatory [facility] Work Phone: Start: 12-27-2023 End: 12-27-2023 Patient encounter procedure [facility] Work Phone: Start: 12-16-2022 End: 12-17-2022 ambulatory VAIL H FAWWAD Facility:H1 Start: 09-24-2022 End: 09-25-2022 ambulatory VAIL H FAWWAD Facility:H1 Start: 05-13-2022 End: 07-09-2022 ambulatory FRANCIA B APLING Facility:H1 Start: 04-08-2022 End: 04-09-2022 ambulatory VAIL H FAWWAD Facility:H1 Start: 03-25-2022 End: 03-26-2022 ambulatory VAIL H FAWWAD Facility:H1 Procedures Date Procedure Procedure Detail Performing Clinician Start: 05-19-2025 MR LUMBAR SPINE WO CON Zachary Aldana MD Work Phone: Start: 02-23-2025 XR LUMBAR SPINE 2 OR 3V Zachary Aldana MD Work Phone: Start: 12-16-2024 MM TOMOSYNTHESIS SCR EENING BI Ben Maopatrick FACILITIES CLERK Work Phone: Start: 12-16-2024 Mammography Ben F itzpatrick FACILITIES CLERK Work Phone: Start: 10-06-2023 Mammography Ben F itzpatrick FACILITIES CLERK Work Phone: Start: 06-12-2021 Colonoscopy Ben F itzpatrick FACILITIES CLERK Work Phone: Plan of Treatment Date Care Activity Detail Author Start: 06-12-2031 Screening for malign ant neoplasm of colon [facility] Start: 12-16-2025 Screening for malign ant neoplasm of breast Mammogram [facility] Start: 11-30-2025 Screening for malign ant neoplasm of cervix Cervical Cancer Screening [facility] Comment on above: Postponed from 10/03 (Patient Refused) Start: 08-17-2025 End: 08-17-2025 Patient encounter procedure 08/17/2025 11:00 AM EDT Office Visit [facility] [address] [place] [id number] Zachary Aldana MD [address] [place] [phone] [facility] Start: 07-03-2025 Influenza vaccination Influenza Vacc ine (#1) [facility] Start: 05-31-2025 End: 05-31-2025 [facility] Start: 05-30-2025 End: 05-30-2025 Patient encounter procedure [facility] Start: 05-23-2025 End: 05-23-2025 Patient encounter procedure 05/23/2025 10:15 AM EDT Office Visit [facility] [address] [place] [address] Zachary Aldana MD [address] [place] [phone] [facility] Start: 05-10-2025 End: 05-10-2026 MR Lumbar spine WO contrast MR lumbar spine wo contrast Imaging Routine Degeneration of intervertebral disc of lumbar region with discogenic back pain Expected: 05/10/2025, Expires: 05/10/2026 [facility] Work Phone: Comment on above: Expected: 05/10/2025 , Expires: 05/10/2026 Start: 05-10-2025 End: 05-10-2025 Patient encounter procedure [facility] Comment on above: Arrived Start: 02-23-2025 End: 02-23-2026 XR Lumbar spine 2 or 3 Views XR lumbar spine 2 or 3 views Imaging Routine Chronic bilateral low back pain with right-sided sciatica Expected: 02/23/2025, Expires: 02/23/2026 [facility] Work Phone: Comment on above: Expected: 02/23/2025 , Expires: 02/23/2026 Start: 01-11-2025 Pneumococcal Vaccine : 65+ Years (1 of 1 - PCV) Pneumococcal Vaccine: 65+ Years (1 of 1 - PCV) [facility] Comment on above: Postponed from 10/03 (Patient Ill Today) Start: 11-30-2024 End: 01-28-2026 MG Breast - bilateral Screening Bilateral screening mammogram Imaging Routine Encounter for screening mammogram for malignant neoplasm of breast Expected: 11/30/2024, Expires: 01/28/2026 [facility] Work Phone: Comment on above: Expected: 11/30/2024 , Expires: 01/28/2026 Start: 11-30-2024 End: 11-30-2024 Patient encounter procedure [facility] Comment on above: Arrived Start: 10-06-2024 Screening for malign ant neoplasm of breast Mammogram [facility] Start: 2024 Pneumococcal Vaccine : 65+ Years (1 of 1 - PCV) Pneumococcal Vaccine: 65+ Years (1 of 1 - PCV) [facility] Start: 07-03-2024 Influenza vaccination Influenza Vacc ine (#1) [facility] Start: 2009 Pneumococcal Vaccine : 65+ Years (1 of 1 - PCV) Pneumococcal Vaccine: 65+ Years (1 of 1 - PCV) [facility] Start: 1989 Screening for malign ant neoplasm of cervix [facility] Start: 1980 Screening for malign ant neoplasm of cervix Pap Smear [facility] Start: 1959 Screening for malign ant neoplasm of colon [facility] CT Unspecified body region [facility] DXA Skeletal system.axial Views for bone density [facility] Patient Education Gastritis - Di scharge instructions Know your [facility] Work Phone: Stress cardiac echo study report [facility] Immunizations Immunization Date Immunization Notes Care Provider Stephy rice 08-15-2024 influenza virus vaccine, unspecified formulation Ben Turpin FACILITIES CLERK Work Phone: [facility] 08-24-2023 Influenza, Seasonal, Quadrivalent, Adjuvanted Ben Turpin FACILITIES CLERK Work Phone: [facility] 08-24-2023 SARS-COV-2 (COVID-19 ) vaccine, mRNA, spike protein, LNP, PF, daysi-sucrose, 30 mcg/0.3 mL Ben Turpin FACILITIES CLERK Work Phone: [facility] 08-24-2023 influenza virus vaccine, unspecified formulation Ben Turpin FACILITIES CLERK Work Phone: [facility] 04-08-2023 zoster vaccine recombinant Ben Turpin FACILITIES CLERK Work Phone: [facility] 02-04-2023 zoster vaccine recombinant Ben Turpin FACILITIES CLERK Work Phone: [facility] 09-16-2022 influenza, injectabl e, quadrivalent, preservative free Ben Turpin FACILITIES CLERK Work Phone: [facility] 08-19-2021 influenza, injectabl e, quadrivalent, preservative free Ben Turpin FACILITIES CLERK Work Phone: [facility] 08-04-2020 influenza, injectabl e, quadrivalent, contains preservative Ben Turpin FACILITIES CLERK Work Phone: [facility] 08-10-2018 influenza, injectabl e, quadrivalent, contains preservative Ben Turpin FACILITIES CLERK Work Phone: [facility] 08-21-2017 influenza, injectabl e, quadrivalent, preservative free Ben Turpin FACILITIES CLERK Work Phone: [facility] 10-17-2013 influenza, seasonal, injectable Ben Turpin FACILITIES CLERK Work Phone: [facility] Payers Date Payer Category Payer Self-pay [id number] 2024 [place] [address] [id number] 2024 Medicare [id number] 2024 Unknown [id number] 2022 Private Health Insurance [id number] 2022 Unknown [id number] 1959 Self-pay [id number] 1959 Unknown [id number] [id number]. 593 1959 Unknown [id number] 2.16.840.1.113108.3.579.2. 593 1959 Unknown [id number] 2.16.840.1.884422.3.579.2. 593 1959 Unknown [id number] 2.16.840.1.078712.3.579.2. 593 1959 Unknown [id number] 2.16.840.1.320652.3.579.2. 593 1959 Unknown [id number] 2.16.840.1.659701.3.579.2. 1259 1959 Unknown [id number] 2.16.840.1.979717.3.579.2. 1259 1959 Unknown [id number] 2.16.840.1.919379.3.579.2. 1259 1959 Unknown [id number] 2.16.840.1.740435.3.579.2. 1259 1959 Unknown [id number] 2.840.1.029026.3.579.2. 1259 1959 Unknown [id number] 2.840.1.799808.3.579.2. 1259 Unknown [id number] 2.16.840.1.213002.3.579.2. 593 Unknown Jeanie BC/BS [id number] Unknown Renita VALENTIN [id number] Unknown Melvina Barrientos VALENTIN [id number] Unknown [id number] 2..[id number]. 531 Social History Date Type Detail Facility [facility] Work Phone: Start: 1960 Sex Assigned At Female F [facility] Start: 01-04-2024 [facility] Never smoked tobacco [facility] Start: 01-04-2024 Tobacco use and exposure Smokeless tobacco non-user [facility] Start: 05-17-2024 End: 02-23-2025 Alcoholic beverage intake Current drinker of alcohol (finding) [facility] Start: 05-17-2024 End: 02-21-2025 History of Social function [facility] Start: 05-17-2024 End: 02-21-2025 Tobacco use panel [facility] Start: 01-04-2024 Alcohol Comment [facility]ASSIONAL [facility] Start: 1960 Sex assigned at Not on file [facility] How often do you nee d to have someone help you when you read instructions, pamphlets, or other written material from your doctor or pharmacy [SILS] Never [facility] Within the last year , have you been afraid of your partner or ex-partner? No [facility] Do you belong to any clubs or organizations such as rastafarian groups, unions, fraternal or athletic groups, or school groups? Yes [facility] Are you now , , , , never or living with a partner? [facility] How often to you hav e a drink containing alcohol? Monthly or less [facility] How many standard drinks containing alcohol do you have on a typical day? 3 or 4 [facility] How often do you hav e 6 or more drinks on 1 occasion? Less than monthly [facility] How hard is it for y ou to pay for the very basics like food, housing, medical care, and heating Not hard at all [facility] (I/We) worried whe er (my/our) food would run out before (I/we) got money to buy more. Never true [facility] Tobacco smoking stat us [facility] Unknown if ever smoked [facility] Work Phone: Sex Female (finding) [facility] Start: 05-31-2025 End: 08-17-2025 Tobacco smoking status NHIS Ex-smoker (finding) [facility] NEGATED: Highlighted rowStart: LUL History of tobacco use Passive smoker [facility] Clinical Notes 06-13-2021 to 06-21-2025 Telephone Encounter - EWA MCKOY - 06/01/2025 9:24 AM EDTTelephone Encounter - EWA MCKOY - 06/01/2025 9:24 AM EDT Note Date & Type Note Facility 06-21-2025 Note In person visit Chief complaint: lowre back pain [facility] [employer] [facility] [place]: She was here with her frind Lily Gordillo She has a back issue too She is not a nurse She said she has an issue at L4-5 - she thinks Sh ehas a hard time standign and walking very far If she does then the pain comes on It is on the right side It radiates up and down and side to side Not all the way down to the foot She has some numbness in the left leg - higher up She has had the problem in the right leg for at least a couple years She used to work as an insurance defense paralegal ROS: As above Medical History[1] Surgical History[2] Medications Ordered Prior to Encounter[3] Allergies[4] Exam; BP 158/76 (BP Location: Right arm, Patient Position: Sitting, BP Cuff Size: Adult) Pulse 75 Ht 1.626 m (5' 4 ) Wt 95.3 kg (210 lb) SpO2 95% BMI 36.05 kg/m??? Age appropriate yes family present - her sister Lily Gordillo that I saw the same day NC/AT Well developed, well nourished Mood/affect normal Awake, alert, oriented CN intact Speech intact Cognition intact Motor: not weak Sensory: no focal sensory deficit Ambulatory Station intact Coordination intact Reflexes: Review of films; I personally reviewed and interpreted her imaging for her during the clinic visit - She has primarily facet hypertrophy at L3-4 - much more on the right side than the left side A/P: 64 y/o woman (I also saw her sister today in a separate appointment - Ms. Sheikh has mostly back pain - her imaging shows facet arthrosis. I think she should consider having injections- facet injection/RFA I don't think I would ocnsier surgery on her back at this time If thinkgs worsen I can see her back PRN At this point it isn't clear that she should consider surgical intervention for her spine. Josh Reich MD Answers submitted by the patient for this visit: Back Pain Questionnaire (Submitted on 06/21/2025) Chief Complaint: Back pain Chronicity: chronic Onset: more than 1 year ago Frequency: daily Progression since onset: gradually worsening Pain location: gluteal, sacro-iliac Pain quality: aching Pain - numeric: 7/10 Pain is: the same all the time Aggravated by: bending, position, standing Stiffness is present: in the morning abdominal pain: No bladder incontinence: No bowel incontinence: No chest pain: No fever: No headaches: No leg pain: No numbness: No perianal numbness: No dysuria: No paresis: No pelvic pain: No paresthesias: No tingling: No weakness: No weight loss: No Risk factors: history of osteoporosis, lack of exercise, menopause, obesity [1] Past Medical History: Diagnosis Date Disease of thyroid gland GERD (gastroesophageal reflux disease) [2] No past surgical history on file. [3] Current Outpatient Medications on File Prior to Visit Medication Sig Dispense Refill alendronate (Fosamax) 70 mg tablet Take 70 mg by mouth once a week. ascorbic acid (Vitamin C) 500 mg tablet Take 500 mg by mouth in the morning. atorvastatin (Lipitor) 10 mg tablet Take 10 mg by mouth in the morning. cetirizine (ZyrTEC) 10 mg tablet Take 10 mg by mouth in the morning. docosahexaenoic acid/epa (FISH OIL ORAL) Take by mouth. levothyroxine (Synthroid, Levoxyl) 100 mcg tablet Take 100 mcg by mouth in the morning. methocarbamol (Robaxin) 750 mg tablet Take 750 mg by mouth if needed in the morning, at noon, in the evening, and at bedtime. zvciiftf-icd-shatgmp fumarate (Multi Vitamin) 9 mg iron/15 mL liquid Take by mouth. al-mvw-JO-vit E-cbruoh-sovuzyr 200 mcg-15 mcg- 5 mg-1 mg capsule Take by mouth. nabumetone (Relafen) 500 mg tablet TAKE 1 TABLET BY MOUTH 2 TIMES A DAY NEEDED FOR MODERATE PAIN OR MILD PAIN omeprazole (PriLOSEC) [address] capsule TAKE 1 CAPSULE BY MOUTH IN THE MORNING AND 1 CAPSULE IN THE EVENING. TAKE BEFORE MEALS. No current facility-administered medications on file prior to visit. [4] Allergies Allergen Reactions Cephalexin Hives Clindamycin [facility] 06-01-2025 Telephone encount er Note Patient is looking to change neuro. She would like to go to Dr Reich at [place] cl [facility] 06-01-2025 Miscellaneous Notes Formattin g of this note might be different from the original. Patient is looking to change neuro. She would like to go to Dr Riech at [place] [facility] documented in this encounter [facility] 05-15-2025 Evaluation note Diagnosis Onset Date Resolution Dyspepsia acute May 15 10:16am GERD (gastroesophageal reflux disease) acute May 15, 2025 10:16am Globus sensation acute May 10:16am [facility] Work Phone: [phone] 453-956407-09-2025 History of Present illness Narrative* Zachary Aldana MD - 05/10/2025 11:13 AM EDTAssociated Problem(s): Globus sensation Symptoms unchanged with omeprazole and refer to GI. * Zachary Aldana MD - 05/10/2025 11:13 AM EDTAssociated Problem(s): Gastroesophageal reflux disease Symptoms unchanged with omeprazole and refer to GI. * Zachary Aldana MD - 05/10/2025 11:13 AM EDTAssociated Problem(s): Degeneration of intervertebral disc of lumbar region with discogenic back pain Continued pain and minimal improvement with PT. X-ray with DDD and pain limiting activity. Check MRI and will need referral to pain management or neurosurgery based on results. * Zachary Aldana MD - 05/10/2025 10:45 AM EDT Images from the original note were not included. Subjective Patient ID: Juni Sheikh is a 64 y.o. female who [...] Ambulatory referral to Gastroenterology documented in this encounterMissouri [facility] Medical [id number] Telephone encounter Note* Telephone Encounter - Zachary Aldana MD - 04/25/2025 4:41 PM EDT Would need visit and can order MRI. [facility] [id number] Miscellaneous Notes* Telephone Encounter - Zachary Aldana MD - 04/25/2025 4:41 PM EDT Would need visit and can order MRI. * Telephone Encounter - Ita Clemons - 04/25/2025 1:15 PM EDT Patient called and stated she finished her physical therapy about 3 weeks ago and wondered what sheshould do next. an * Telephone Encounter - Zachary Aldana MD - 04/25/2025 12:59 PM EDT Unclear etiology of pain and patient needs seen to be appropriately assessed and treated. Try to schedule in office or go to urgent care. * Telephone Encounter - Karma Marshall - 04/24/2025 10:45 AM EDT Left leg is swelling and tingling just above the ankle. She is seeking direction about what to do. documented in this encounterMissouri Baptist Medical [id number] History of Present illness Narrative* Shaila Prabhakar LPN - 04/25/2025 4:20 PM EDT HPI: Historian of HPI: patient Juni Sheikh is a 64 y.o. female who presents today to the Urgent Care with the following complaints and denials due left lower leg pain which has been present for 1 week(s). C/O Denies Symptom Comments [x] [] swelling [] [x] ecchymosis [] [x] erythema [x] [] tingling [] [x] numbness [] [x] Pain radiation [] [x] Weakness [] [x] Decreased ROM [] [x] Trauma Additional Comments: pt has not taken any OTC medications Pt denies heat application to the affected area Pt denies cold application to the affected area Pt has no known injury. States her left leg has been swelling for 1 week. Swelling is from left knee to ankle. Pt is elevating leg to help with swelling. ROS: A complete system ROS was performed and negative aside from the pertinent positives noted in the HPI and PE. Examination General Examination: General Examination: in no acute distress, well developed, well nourished. HEAD: normocephalic atraumatic. Eyes: extraocular movement intact (EOMI) fundus normal pupils equal, round, reactive to light. EARS: auditory canal clear tympanic membrane intact, clear. NOSE: no lesions nares patent. ORAL CAVITY: no lesions mucosa moist. Throat: clear. NECK/THYROID: neck supple, full range of motion. LYMPH NODES: no cervical adenopathy. SKIN: No rashes HEART: no murmurs, regular rate and rhythm, S1, S2 normal. LUNGS: clear to auscultation bilaterally. ABDOMEN: soft, non tender, non distended no hepatosplenomegaly no masses palpable. MUSCULOSKELETAL: LT knee and ankle exam WNL. Swelling of LT calf noted. EXTREMITIES: no clubbing, cyanosis, or edema. PERIPHERAL PULSES: intact, Blount's equivocal NEUROLOGIC: nonfocal cranial nerves 2-12 grossly intact. PSYCH: alert, oriented cognitive function intact cooperative with exam. Ultrasound Prelim Interp negative for DVT. Awaiting for final RAD report. HPI, ROS, and PE reviewed and amended by Dr. Leroy Zacarias as necessary. Written by marlene Saha MA 1. Strain of left calf muscle (Primary) DX and TX reviewed. OTC advil 600mg 3 times a day as needed. Warm compresses, moist heat 2/3 times a day for 20 min as tolerated. Follow up with PCP. 2. Left knee pain, unspecified chronicity DX reviewed. Awaiting final RAD report. - Vascular US lower extremity venous duplex left; Future documented in this encounterMissouri Baptist Medical [id number] Telephone encounter Note* Telephone Encounter - Ita Clemons - 04/25/2025 1:15 PM EDT Patient called and stated she finished her physical therapy about 3 weeks ago and wondered what sheshould do next. an [facility] [id number] Telephone encounter Note* Telephone Encounter - Zachary Aldana MD - 04/25/2025 12:59 PM EDT Unclear etiology of pain and patient needs seen to be appropriately assessed and treated. Try to schedule in office or go to urgent care. [facility] [id number] Telephone encounter Note* Telephone Encounter - Karma Marshall - 04/24/2025 10:45 AM EDT Left leg is swelling and tingling just above the ankle. She is seeking direction about what to do. [facility] [id number] History of Present illness Narrative* Zachary Aldana MD - 02/23/2025 11:00 AM EDTAssociated Problem(s): Dyslipidemia (CMS/HCC) Repeat labs next visit. * Zachary Aldana MD - 02/23/2025 11:00 AM EDTAssociated Problem(s): Class 2 severe obesity due to excess calories with serious comorbidity and body mass index (BMI) of 36.0 to 36.9 in adult (CMS/HCC) Weight loss indicated. * Zachary Aldana MD - 02/23/2025 10:59 AM EDTAssociated Problem(s): Gastroesophageal reflux disease Symptoms worse and increase omeprazole. If no improvement will need repeat EGD. * Zachary Aldana MD - 02/23/2025 10:59 AM EDTAssociated Problem(s): Chronic bilateral low back pain with right-sided sciatica Pain and radicular symptoms worse. Check x-ray and start PT. Start relafen for pain and robaxin forspasms. If no improvement will need MRI. * Zachary Aldana MD - 02/23/2025 10:15 AM EDT Images from the original note were not included. Subjective Patient ID: Juni Sheikh is a 64 y.o. female who presents for Back Pain (Possible sciatic pain. Starts in lower back and shoots up back and down leg) and GERD. C/o worsening back pain and sciatica. C/o pain in low back across top hips. Pain radiates into right gluteal region and down right leg. Pain with walking and standing. Pain worse with bending and lifting. Using OTC and not much relief. Prior PT few years ago but did not help. C/o worsening GERD. Increased epigastric pain and discomfort. Pain after eating and at times feels like lump in chest. Prior EGD around 2020 and was on omeprazole. Stopped after few years but resumed last fall. Initially helped but recently symptoms worsened. Review of Systems Respiratory: Negative for cough, [...] Addressed This Visit Gastroesophageal reflux disease Symptoms worse and increase omeprazole. If no improvement will need repeat EGD. Relevant Medications omeprazole (PriLOSEC) [address] capsule Chronic bilateral low back pain with right-sided sciatica - Primary Pain and radicular symptoms worse. Check x-ray and start PT. Start relafen for pain and robaxin forspasms. If no improvement will need MRI. Relevant Medications nabumetone (Relafen) 500 MG tablet methocarbamol (Robaxin) 750 MG tablet Other Relevant Orders XR lumbar spine 2 or 3 views documented in this encounterMissouri Baptist Medical [id number] History of Present illness Narrative* Ben Turpin NP - 11/30/2024 1:25 PM ESTAssociated Problem(s): Viral upper respiratory tract infection Runny nose Sneezing Sinus congestion Ear pain Headache Ongoing 3 days. Discussed likely viral etiology,. Will treat with Flonase/Zyrtec/conservative measures. * Ben Turpin NP - 11/30/2024 1:21 PM ESTAssociated Problem(s): Other hyperlipidemia (CMS/HCC) Currently taking Denies any myalgias. Continue current regimen. Most recent Lipid Panel 05/2024 WNL * Ben Turpin NP - 11/30/2024 1:20 PM ESTAssociated Problem(s): Gastroesophageal reflux disease Currently taking Omeprazole daily States symptoms have improved significantly. Reports no breakthrough heartburn episodes. * Ben Turpin NP - 11/30/2024 1:00 PM EST Images from the original note were not included. Subjective Patient ID: Juni Sheikh is a 64 y.o. female who [...] Neurological: Negative for dizziness, tremors, syncope, weakness, light- headedness and headaches. Psychiatric/Behavioral: Negative for decreased concentration and suicidal ideas. The patient is notnervous/anxious. Hematological: Does not bruise/bleed easily. Endocrine: Negative [...] Orders Bilateral screening mammogram documented in this encounterMissouri Baptist Medical [id number] Instructions* Patient Instructions* Ben Turpin NP - 11/30/2024 1:00 PM EST [...] THE [facility]ARE[facility] EMERGENCY DEPARTMENT.\ documented in this encounterMissouri Baptist Medical [id number] NotePROCEDURE: XR HIP LT 2 3V W PELVIS COMPARISON: None. HISTORY: Anesthesia of skin FINDINGS: BONES:No acute fracture or dislocation. Moderate bilateral hip osteoarthropathy with joint space narrowing and marginal osteophyte formation. Degenerative spondylosis of the spine. Enthesopathic spurring bilateral femur greater trochanters SOFT TISSUES:Negative. No visible soft tissue swelling. EFFUSION:None visible. OTHER: Negative. IMPRESSION: Moderate osteoarthritis Electronically authenticated by: MAKENZIE GOLDMAN Date: 2022-04-08 17:50[facility]12-08-2021 NoteChief Complaint consultation for abdominal pain, vomiting, nausea [...] have currently resolved. RUQ US completed 06/25/21 withcholelithiasis. Colonoscopy and EGD completed 06/12/21. History of [...] last several weeks; no h/o jaundice or pancreatits;+fmhx of biliary disease; no asa or NSAID use; no tobacco use. Review of Systems PHQ Score Initial Depression Screen Score: 0 ROS - Provider Constitutional: no fever, no sweats, no weight loss. Eyes: no glasses, no blurred vision, no visual loss. ENMT: no dentures, no hoarseness, no swallowing difficulties, no hearing loss, no ear infection(s),no nose bleeds. Cardiovascular: normal blood pressure, no [...] Hyperlipidemia: Sister and Brother. Hypertension: Sister. Hypothyroidism: Sister.[facility] HospitalComment on above:Result Comment: Electronically Signed By: KINZA ARMAS, Raymond Zaidi\Date and Time Signed: 10/09/21 21:37 [id number] NotePatient: JUNI SHEIKH Age: 60 years Sex: Female : 1960 Associated Diagnoses: None Author: Esteban Rose Results Review Original Procedure Date 06/12/2021 Revised repeat colonoscopy interval 5 years Adenomatous polyp(s) present 1 or 2 tubular adenomas less than 10mm Adenocarcinoma present No Serrated lesion(s) present No Hyperplastic polyp(s) present [facility]08-12-2021 Note [id number]:[id number] Evaluation noteNo assessment information availableMansfield Hospital Work Phone: Evaluation note* Diagnosis Other specified hypothyroidism (CMS/HCC)- Primary Other [...] specified hypothyroidism (CMS/HCC) documented in this encounter [facility] HealthcareEvaluation note* Diagnosis Other specified hypothyroidism (CMS/HCC)- Primary Other [...] hyperlipidemia type (CMS/HCC) documented in this encounter [facility]* Diagnosis Other specified hypothyroidism (CMS/HCC)- Primary Other hyperlipidemia (CMS/HCC) Multiple lung nodules on CT Cellulitis of face Cellulitis and abscess of face Other specified hypothyroidism (CMS/HCC)- Primary Age-related osteoporosis without current pathological fracture (CMS/HCC) Other hyperlipidemia (CMS/HCC) Gastroesophageal reflux disease without esophagitis- Primary Esophageal reflux Other specified hypothyroidism (CMS/HCC) Hyperlipidemia, unspecified hyperlipidemia type ([facility]/HCC) Well adult exam Routine general medical examination at a health care facility Age-related osteoporosis without current pathological fracture ([facility]/HCC) Multiple lung nodules on CT Osteopenia after menopause Other hyperlipidemia (CMS/HCC)- Primary Viral upper respiratory tract infection Acute upper respiratory infections of unspecified site Encounter for screening mammogram for malignant neoplasm of breast Gastroesophageal reflux disease without esophagitis Esophageal reflux documented in this encounter [facility] HealthcareEvaluation note* Diagnosis Other specified hypothyroidism- Primary Other hyperlipidemia Multiple lung nodules on CT Cellulitis of face Cellulitis and abscess of face Other specified hypothyroidism- Primary Age-related osteoporosis without current pathological fracture ([facility]/HCC) Other hyperlipidemia Gastroesophageal reflux disease without esophagitis- Primary Esophageal reflux Other specified hypothyroidism Hyperlipidemia, unspecified hyperlipidemia type ([facility]) Well adult exam Routine general medical examination at a health care facility Age-related osteoporosis without current pathological fracture ([facility]) Multiple lung nodules on CT Osteopenia after menopause Other hyperlipidemia- Primary Viral upper respiratory tract infection Acute upper respiratory infections of unspecified site Encounter for screening mammogram for malignant neoplasm of breast Gastroesophageal reflux disease without esophagitis Esophageal reflux Chronic bilateral low back pain with right-sided sciatica- Primary Gastroesophageal reflux disease without esophagitis Esophageal reflux Class 2 severe obesity due to excess calories with serious comorbidity and body mass index (BMI) of 36.0 to 36.9 in adult ([facility]) Dyslipidemia ([facility]/HCC) Other and unspecified hyperlipidemia documented in this encounter [facility] HealthcareEvaluation note* Diagnosis Other specified hypothyroidism- Primary Other hyperlipidemia Multiple lung nodules on CT Cellulitis of face Cellulitis and abscess of face Other specified hypothyroidism- Primary Age-related osteoporosis without current pathological fracture Other hyperlipidemia Gastroesophageal reflux disease without esophagitis- Primary Esophageal reflux Other specified hypothyroidism Hyperlipidemia, unspecified hyperlipidemia type Well adult exam Routine general medical examination at a health care facility Age-related osteoporosis without current pathological fracture Multiple lung nodules on CT Osteopenia after menopause Other hyperlipidemia- Primary Viral upper respiratory tract infection Acute upper respiratory infections of unspecified site Encounter for screening mammogram for malignant neoplasm of breast Gastroesophageal reflux disease without esophagitis Esophageal reflux Chronic bilateral low back pain with right-sided sciatica- Primary Gastroesophageal reflux disease without esophagitis Esophageal reflux Class 2 severe obesity due to excess calories with serious comorbidity and body mass index (BMI) of 36.0 to 36.9 in adult ([facility] [place] [place] Dyslipidemia Other and unspecified hyperlipidemia Strain of left calf muscle- Primary Left knee pain, unspecified chronicity Left knee pain, unspecified chronicity documented in this encounter [facility] HealthcareEvaluation note* Diagnosis Other specified hypothyroidism- Primary Other hyperlipidemia Multiple lung nodules on CT Cellulitis of face Cellulitis and abscess of face Other specified hypothyroidism- Primary Age-related osteoporosis without current pathological fracture Other hyperlipidemia Gastroesophageal reflux disease without esophagitis- Primary Esophageal reflux Other specified hypothyroidism Hyperlipidemia, unspecified hyperlipidemia type Well adult exam Routine general medical examination at a health care facility Age-related osteoporosis without current pathological fracture Multiple lung nodules on CT Osteopenia after menopause Other hyperlipidemia- Primary Viral upper respiratory tract infection Acute upper respiratory infections of unspecified site Encounter for screening mammogram for malignant neoplasm of breast Gastroesophageal reflux disease without esophagitis Esophageal reflux Chronic bilateral low back pain with right-sided sciatica- Primary Gastroesophageal reflux disease without esophagitis Esophageal reflux Class 2 severe obesity due to excess calories with serious comorbidity and body mass index (BMI) of 36.0 to 36.9 in adult ([facility] [place] Dyslipidemia Other and unspecified hyperlipidemia Degeneration of intervertebral disc of lumbar region with discogenic back pain- Primary Gastroesophageal reflux disease without esophagitis Esophageal reflux Globus sensation Gastrointestinal malfunction arising from mental factors documented in this encounter [facility] HealthcareEvaluation note* Author Fortino Walter [facility] Authored May 15, 2025 11:1 8am - Dyspepsia - Globus sensation - GERD [facility] Work Phone: Evaluation note* Diagnosis Other specified hypothyroidism- Primary Other hyperlipidemia Multiple lung nodules on CT Cellulitis of face Cellulitis and abscess of face Other specified hypothyroidism- Primary Age-related osteoporosis without current pathological fracture Other hyperlipidemia Gastroesophageal reflux disease without esophagitis- Primary Esophageal reflux Other specified hypothyroidism Hyperlipidemia, unspecified hyperlipidemia type Well adult exam Routine general medical examination at a health care facility Age-related osteoporosis without current pathological fracture Multiple lung nodules on CT Osteopenia after menopause Other hyperlipidemia- Primary Viral upper respiratory tract infection Acute upper respiratory infections of unspecified site Encounter for screening mammogram for malignant neoplasm of breast Gastroesophageal reflux disease without esophagitis Esophageal reflux Chronic bilateral low back pain with right-sided sciatica- Primary Gastroesophageal reflux disease without esophagitis Esophageal reflux Class 2 severe obesity due to excess calories with serious comorbidity and body mass index (BMI) of 36.0 to 36.9 in adult ([facility]-HCC) Dyslipidemia Other and unspecified hyperlipidemia Degeneration of intervertebral disc of lumbar region with discogenic back pain- Primary Gastroesophageal reflux disease without esophagitis Esophageal reflux Globus sensation Gastrointestinal malfunction arising from mental factors Degeneration of intervertebral disc of lumbar region with discogenic back pain- Primary documented in this encounter [facility]* Diagnosis Onset Date Resolution Status Admit Date Encounter for screening for malignant neoplasm of lung acute Octob er 2024 10:49am Ex-smoker acute August 17, 2025 10:49am Facet arthritis of lumbar region acu te August 17, 2025 10:49am Hypercholesteremia acute Octobe r 2024 10:49am Hypothyroidism acute August 172024 10:49am Osteopenia acute August 17, 2025 10:49am Tingling of right upper extremity ac carlos enrique August 17, 2025 10:49am GERD (gastroesophageal reflu x disease) inactive August 17 10:49am [facility] Work Phone: Hospital Discharge instructions Additional Instructions DISCHARGE INSTRUCTIONS FOR UPPER ENDOSCOPY WHAT TO EXPECT: - You may feel full, gassy or cramping after your procedure. In some cases, this may be from a few hours to a day. Walking may help relieve the discomfort. - Your throat may feel sore today from the scope that the doctor passed through your throat to visualize your stomach. Take a throat lozenge or suck on ice to ease the discomfort. - You may notice some streaks of blood in your sputum if the doctor has taken a biopsy. - You should begin to recover from anesthesia within 1 hour of the procedure, however may feel groggy for the next 24 hours. DO's AND DON'Ts: - Call your doctor right away if you have a hard abdomen, severe pain, vomiting or if you cough up large amounts of blood. - Call your doctor if you develop any rashes, hives or difficulty breathing. - If you take 81 mg aspirin for your heart it is safe to resume this medication. - If you take other blood thinner medications your doctor will instruct you when these can safely be resumed. - Do NOT drive for 24 hours. - Do NOT operate machinery such as power tools, lawn mowers, snow blowers, sewing machines, etc. for 24 hours. - Avoid alcoholic beverages and drugs for allergies, nerves, or sleep. - Do NOT stay alone. Do NOT leave your child unattended. - Do NOT make important personal or business decisions or sign any legal documents. - Eat solid foods and drink liquids in smaller amounts than usual until normal appetite returns. If you should experience an upset stomach, liquids high in sugar content (soda, John-Aid, non-acid juices) are recommended. - Do NOT smoke. - Do take it easy today. You need not stay in bed, but avoid strenuous activities such as jogging or working out. FOLLOW UP & RECOMMENDATIONS: -Please call the office and make a follow up appointment to see me if symptoms persist. -Notify the doctor if you have any problems. -Follow up with PCP. -Office number [phone]. [facility] Work Phone: Reason for referral (narrative)No reason for referral information availableMansfield Hospital Work Phone: Summary Purpose Family History Relationship Condition Age at Onset Recorded Date/T cam mother Hypertension Unknown Unknown father Chronic obstructive pulmonary disease Unk nown Relationship Condition Age at Onset Recorded Date/T cam mother Hypertension Unknown Unknown Pulmonary edema Unknown father Chronic obstructive pulmonary disease Unknown paternal grandmother Malignant neoplasm Unknown brother Pulmonary edema Unknown Advance Directives Advance Directive Response Recorded Date/ Time Advance Directives No March 15 9 7:04am Advance Directive Response Recorded Date/ Time Advance Directives No March 15 9 8:04am Chief Complaint and Reason for Visit Chief Complaint right cheek swollen and hot Chief Complaint Admit Date REF FOR GERD, GLOBUS SENSATION May 10:16am Chief Complaint Admit Date REF FOR GERD, GLOBUS SENSATION May 10:16am Globus sensation/GERD May 31, 2025 12 :08pm Reason for Visit Admit Date Dyspepsia May 15, 2025 10:1 6am GERD (gastroesophageal reflux disease) J [facility] 2024 10:16am Globus sensation May 15, 2025 10:1 6am Chief Complaint Admit Date Globus sensation/GERD May 31, 2025 12 :08pm 3m f/u August 17, 2025 1 0:49am Reason for Visit Admit Date Encounter for screening for malignant ne oplasm of lung August 17, 2025 10:49am Ex-smoker August 17, 2025 1 0:49am Facet arthritis of lumbar region August 17, 2025 10:49am Hypercholesteremia August 17, 2025 1 0:49am Hypothyroidism August 17, 2025 1 0:49am Osteopenia August 17, 2025 1 0:49am Tingling of right upper extremity Octobe r 2024 10:49am GERD (gastroesophageal reflux disease) O ctober 2024 10:49am Additional Source Comments INFORMATION SOURCE (unrecogn ized section and content) DATE CREATED AUTHOR [facility]/24/2022 [facility] DATE CREATED AUTHOR AUTHOR'S ORGANIZ ATION 12/20/2022 [facility] DATE CREATED AUTHOR AUTHOR'S ORGANIZ ATION 05/14/2025 [facility] EPIC DATE CREATED AUTHOR AUTHOR'S ORGANIZ ATION 07/03/2025 [facility] DATE CREATED AUTHOR AUTHOR'S ORGANIZ ATION 07/05/2025 [facility] Care Teams (unrecognized sec tion and content) Team Status: Active Member Role Status Dates Maddison Madrigal DO Primary Care Provider Active Team Status: Active Member Role Status Dates Marlen Allan DO Attending Provider Active St art: May 31, 2025 Marlen Allan DO Other Provider Active Start: May 31, 2025 Zachary Aldana MD Primary Care Provider Active S tart: May 31, 2025 Team Status: Inactive Member Role Status Dates Maddison Madrigal DO Primary Care Provider Active S tart: August 17, 2025 End: August 17, 2025 Maddison Madrigal DO Attending Provider Active Star t: August 17, 2025 End: August 17, 2025 Team Status: Active Member Role Status Dates Zachary Aldana MD Primary Care Provider Active Team Status: Inactive Member Role Status Dates Charo Baker MD Primary Care Provider Active S tart: May 15, 2025 End: May 15, 2025 Fortino Walter APRN Attending Provider Active Start: May 15, 2025 End: May 15, 2025 Team Status: Active Member Role Status Dates Marlen Allan DO Attending Provider Active St art: May 31, 2025 Marlen Allan , Other Provider Active Start: May 31, 2025 Zachary Aldana MD Primary Care Provider Active S tart: May 31, 2025 Team Status: Active Member Role Status Dates Charo Baker MD Primary Care Provider Active Team Status: Inactive Member Role Status Dates Charo Baker MD Primary Care Provider Active S tart: December 27, 2023 End: December 27, 2023 Lary Hackett APRN Attending Provider Active Start: December 27, 2023 End: December 27, 2023 Manager Operations Relationship Specialty Start Date End Date Zachary Aldana MD [address] [place] [phone] PCP - General Family Medicine 07/27/24 Ben Turpin NP [address] [place] [address] Nurse Practitioner Family Medicine 07/27/24 Manager Operations Relationship Specialty Start Date End Date Zachary Aldana MD [address] [place] [phone] PCP - General Family Medicine 07/27/24 Ben Turpin NP [address] [place] [address] Nurse Practitioner Family Medicine 07/27/24 Manager Operations Relationship Specialty Start Date End Date Zachary Aldana MD [address] [place] [phone] PCP - General Family Medicine 07/27/24 Ben Turpin NP [address] [place] [address] Nurse Practitioner Family Medicine 07/27/24 Manager Operations Relationship Specialty Start Date End Date Zachary Aldana MD [address] [place] [phone] PCP - General Family Medicine 07/27/24 Ben Turpin NP [address] [place] [phone] Nurse Practitioner Family Medicine 07/27/24 Manager Operations Relationship Specialty Start Date End Date Zachary Aldana MD [address] [place] [phone] PCP - General Family Medicine 07/27/24 Ben Turpin NP [address] [place] [phone] Nurse Practitioner Family Medicine 07/27/24 Manager Operations Relationship Specialty Start Date End Date Zachary Aldana MD [address] [place] [phone] PCP - General Family Medicine 07/27/24 Ben Turpin NP [address] [place] [phone] Nurse Practitioner Family Medicine 07/27/24 Manager Operations Relationship Specialty Start Date End Date Zachary Aldana MD [address] [place] [address] PCP - General Family Medicine 07/27/24 Ben Turpin NP [address] [place] [phone] Nurse Practitioner Family Medicine 07/27/24 Manager Operations Relationship Specialty Start Date End Date Zachary Aldana MD [address] [place] [phone] PCP - General Family Medicine 07/27/24 Ben Turpin NP [address] [place] [phone] Nurse Practitioner Family Medicine 07/27/24 Manager Operations Relationship Specialty Start Date End Date Zachary Aldana MD [address] [place] [phone] PCP - General Family Medicine 07/27/24 Ben Turpin NP [address] [place] [phone] Nurse Practitioner Family Medicine 07/27/24 Manager Operations Relationship Specialty Start Date End Date Zachary Aldana MD [address] [place] [phone] PCP - General Family Medicine 07/27/24 Ben Turpin NP [address] [place] [phone] Nurse Practitioner Family Medicine 07/27/24 Manager Operations Relationship Specialty Start Date End Date Zachary Aldana MD [address] [place] [phone] PCP - General Family Medicine 07/27/24 Ben Turpin NP [address] [place] [phone] Nurse Practitioner [facility] 07/27/24 Manager Operations Relationship Specialty Start Date End Date Zachary Aldana MD [address] [place] [phone] PCP - General [facility] 07/27/24 Ben Turpin NP [address] [place] [phone] Nurse Practitioner [facility] 07/27/24 Team Status: Active Member Role Status Dates Maddison Madrigal DO Primary Care Provider Active Team Status: Inactive Member Role Status Dates Maddison Madrigal DO Primary Care Provider Active S tart: August 17, 2025 End: August 17, 2025 Maddison Madrigal DO Attending Provider Active Star t: August 17, 2025 End: August 17, 2025 Goals (unrecognized section and content) Goals may be documented in a n alternate sectionGoals may be documented in an alternate sectionGoals may be documented in an alternate sectionGoals may be documented in an alternate section Reason for Visit (unrecogniz ed section and content) Reason Onset Date Comments Med Refill 11/28/2024 Reason Comments Follow-up Reason Comments Back Pain Possible sciatic анна n. Starts in lower back and shoots up back and down leg GERD Reason Comments Follow-up Urgent care f/up for leg swelling. Back Pain Sciatica, finished p t still having issues FOR RECORDS PERTAINING TO PATIENTS WHO ARE [...] BE BASED ON THE PRIMARY CLINICAL RECORDS. [facility]. provides no warranty or guarantee of the accuracy or completeness of information in this document.
[2025-08-17 13:31] LABS: Hematocrit 35.9 % (36.0-48.0); Hemoglobin 11.8 g/dL (12.0-16.0); Immature Granulocytes Abs Auto 0.01 10^3/uL (0.00-0.03); Immature Granulocytes Pct Auto 0.2 % (0.0-0.5); Lymphocytes Absolute Auto 1.5 10^3/uL (1.2-3.8); Mean Corpuscular HGB Conc 32.9 g/dL (29.9-35.2); Mean Corpuscular Hemoglobin 28.6 pg (26.7-34.0); Mean Corpuscular Volume 86.9 fL (81.0-99.0); Platelet Count 173 10^3/uL (150-450); Red Blood Count 4.13 10^6/uL (4.20-5.40); White Blood Count 6.4 10^3/uL (4.0-11.0)
[2025-08-17 14:06] LABS: Alanine Aminotransferase 17 U/L (14-59); Albumin Globulin Ratio 0.9; Albumin Level 3.6 g/dL (3.4-5.0); Alkaline Phosphatase 52 U/L (46-116); Anion Gap 11.4; Aspartate Amino Transferase 20 U/L (15-37); Blood Urea Nitrogen 15.0 mg/dL (7.0-18.0); Calcium 8.9 mg/dL (8.5-10.1); Carbon Dioxide 31.2 mmol/L (21.0-32.0); Chloride 104 mmol/L (98-107); Cholesterol 183 mg/dL (<=200); Estimated GFR (African America >60 (>=60 mL/min/1.73m^2); Estimated GFR (Non-African Ame >60 (>=60 mL/min/1.73m^2); Globulin 4.2 g/dL; Glucose 85 mg/dL (74-106); HDL Cholesterol 44 mg/dL (40-60); Potassium 3.6 mmol/L (3.5-5.1); Sodium 143 mmol/L (136-145); Thyroid Stimulating Hormone 4.025 uIU/mL (0.358-3.740); Total Protein 7.8 g/dL (6.4-8.2); Triglycerides 104 mg/dL (<=150); VLDL CHOLESTEROL 20.8 mg/dL
== END 2025-08-17 12:46 | disposition home or self-care (01) ==
PROVIDERS: PCP Family Medicine; Visit Provider Family Medicine
DX: E03.9 Hypothyroidism, unspecified (principal); E78.00 Pure hypercholesterolemia, unspecified
CPT/HCPCS: 36415; 80053; 80061; 84439; 84443; 85025

== ENCOUNTER 2025-09-06 09:16 | Outpatient (OUT) | payer MEDICARE, OTHER, SELFPAY ==
--- OUTSIDE RECORDS SUMMARY | 2025-08-30 05:31 | XMS_ITS | Continuity of Care Document ---
Author Organization [facility] Address [address] [place] [address] Phone Care Team Providers Care Shredder Operator Name Role Phone Maddison Madrigal DO Primary Care Provider [phone] Maddison Madrigal DO Attending Provider Charo Baker MD Primary Care Provider [phone] Fortino Walter APRN Attending Provider Care Teams Patient Care Team Team Status: Active Member Role/Relationship Status Dates Charo Baker MD Primary Care Provider Active Visit Care Team Team Status: Inactive Member Role/Relationship Status Dates Maddison Madrigal DO Primary Care Provider Active S tart: August 17, 2025 End: August 17, 2025Maddiosn Madrigal DOAttending ProviderActiveStart: August 17, 2025 End: August 17, 2025 Patient Care Team Team Status: Inactive Member Role/Relationship Status Dates Charo Baker MD Primary Care Provider Active S tart: August 30, 2025 End: August 30, 2025Zeke Squires ProviderActiveStart: August 30, 2025 End: August 30, 2025 Chief Complaint and Reason for Visit Chief Complaint Admit Date 3m f/u August 17, 2025 1 0:49am 3 month follow up August 30, 2025 9 :57am Reason for Visit Admit Date Ex-smoker August 17, 2025 1 0:49am Facet arthritis of lumbar region August 17, 2025 10:49am GERD (gastroesophageal reflux disease) O ctober 2024 10:49am Hypercholesteremia August 17, 2025 1 0:49am Hypothyroidism August 17, 2025 1 0:49am Osteopenia August 17, 2025 1 0:49am Tingling of right upper extremity Octobe r 2024 10:49am Allergies, Adverse Reactions, Alerts Allergen Type Severity Reaction Last Updated Verified Status cephalexin Allergy Unknown Unknown Reaction August 30, 2025 10:09am Yes Active clindamycin Allergy Unknown Hives August 30, 2025 10:09am Yes Active Social History Smoking Status Status Start Date End Date Date of Observa tion Ex-smoker (finding) August 17, 2025 11:01am Observation Status Observation Response Date of Response Legal Sex Female (finding) Sex Assigned At BirthFemaleDecember 1959 Family History Relationship Condition Age at Onset Recorded Date/T cam mother Hypertension Unknown DeceasedUnknownPulmonary edemaUnknownfatherChronic obstructive pulmonary disease UnknownDeceasedUnknownpaternal grandmotherMalignant neoplasmUnknownbrother Pulmonary edemaUnknown Problems Active Problems Problem Diagnosis/Recorded Date Onset Date Stat us Facet arthritis of lumbar region August 17, 2025 11 :18am Unknown Active Dyspepsia May 15, 2025 11:32am Unknown Acti ve Hypercholesteremia May 18, 2025 9:39am Unknown Active Hypothyroidism May 18, 2025 9:39am Unknown Act bogdan Tingling of right upper extremity August 17, 2025 1 1:39am Unknown Active Osteopenia May 18, 2025 9:40am Unknown Activ e Atypical chest pain August 17, 2025 11:52am Unknown Active Ex-smoker August 17, 2025 11:19am Unknown A ctive Encounter for screening for malignant neoplasm of lung August 17, 2025 11:47am Unknown Active GERD (gastroesophageal reflux disease) May 15, 2025 11:32am Unknown Active Inactive/Resolved Problems Problem Diagnosis/Recorded Date Onset Date Stat us Globus sensation May 15, 2025 11:32am Unknown Resolved Medications Medication Status Dose Units Route Directions Qty Days Refills S tart Date Stop Date End Date Reason(s) Instructions Adherence Levothyroxine 112 mcg capsule Active 112 MCG PO Da russel 90 0October 2024 12:00amComplies with drug therapyCalcium Carbonate (Calcium 600) 600 mg calcium (1,500 mg) ildperRtmyrj306BAHLZfenpAful 2024 12:00am Complies with drug therapyMethocarbamol 750 mg sgunaiWustwb216FNLQOo Directed Aurea 2024 12:00amComplies with drug therapyNabumetone 500 mg tabletActive 500MGPOAs DirectedJuly 2024 12:00amComplies with drug therapyAscorbic Acid (Vitamin C) (C Complex) 1,000 mg tablet extended lweqdisCsmpnk5449YRJZRohgqMojq 2024 12:00amComplies with drug therapyOmega 3-Sgs-Vfq-Fish Oil (Fish Oil) 1,000 (120-180) mg rtttyniZhdzpy0WJDZGAinklDzsp 2024 12:00amComplies with drug therapyAspirin 81 mg almsmdVbdoaf02XGJDMzphrZavw 2024 12:00amComplies with drug therapyVit C,A-Mb-Luqch-Lutein-Zeaxan (Eye Health Areds-2) 250-90-40-1 mg agidakvRhjlvx9DMMKTIhhju dailyJuly 2024 12:00amComplies with drug therapyVitamin K2 45 mcg nxozkglKxewmx75QDGDVCdiqgKbew 2024 12:00am Complies with drug therapyCalcium Carbonate-Vitamin D3 (Oyster Shell Calcium-Vit D3) 500 mg-10 mcg (400 unit) evzjokCyahibmcjpue8ZGWZIDuzomSiailuoe 2023 1:00amJuly 2024 9:31amLevothyroxine 100 mcg msgbmaWwuomjlacapq023NCGKK DailyFebruary 2023 1:00amOctober 2024 8:50amAtorvastatin 10 mg oouytaWzhnnn70YWVWQmfvwXvvwvtam 2023 1:00amComplies with drug therapy Alendronate 70 mg slfcpdNfrkxm51YJJCMyux a weekFebruary 2023 1:00am Complies with drug therapyClindamycin Hcl 300 mg ubutcmoVfshphneqyli057OMCKC4H30 70February 2023 1:00amJuly 2024 10:23amOmeprazole 40 mg capsule,delayed release(DR/EC)Xnahkl30KGQDBiofs28501Khheklw 2024 12:00am Complies with drug therapyOmeprazole 40 mg capsule,delayed release(DR/EC) Jrhyyvizynuh39SEVUWarkb dailyJuly 2024 12:00amOctober 2024 10:22am Cetirizine (Zyrtec) 10 mg pspmnmQvogya98IBPFRzgul as neededOct2024 12:00amComplies with drug therapy Relevant Diagnostic Tests and/or Laboratory Data Laboratory Results Test Collection Date/Time Result Date/Time Result Interpretation Reference Range Result Comment Performing Site Free Thyroxine August 17, 2025 1:21pm August 17 1:21pm 1.05 ng/dL 0.76-1.46Thyroid Stimulating Hormone 3rd GenOct2024 1:21pmOct2024 1:21pm4.025 u[iU]/mLAbove high normal0.358-3.740Cholesterol/HDL Ratio August 17, 2025 1:pmOct2024 1:pm4.23.3 - 4.4 LOW RISK4.4 - 7.1 AVERAGE RISK7.1 - 11.0 MODERATE RISK>11.0 HIGH RISKAnion GapOct2024 1:21pmOct2024 1:21pm11.4Basophils # (Auto)August 17, 2025 1:21pm August 17, 2025 1:21pm0.0 10 3/uL0.0-0.1Cholesterol LevelOct2024 1:21pmOct2024 1:58ks762 mg/dL<=200Albumin/Globulin RatioOct2024 1:21pmOct2024 1:21pm0.9Basophils (%) (Auto)August 17, 2025 1:21pmOct2024 1:21pm0.5 %0.2-2.0HDL CholesterolOct2024 1:pmOct2024 1:pm44 mg/dL40-60> or =60 mg/dl - LOW CARDIOVASCULAR RISK<40 mg/dl - HIGH CARDIOVASCULAR RISKAlbuminOct2024 1:Oct2024 1:pm3.6 g/dL3.4-5.0Eosinophils # (Auto)August 17, 2025 1:21pm August 17, 2025 1:21pm0.2 10 3/uL0.0-0.7LDL Cholesterol, CalculatedOct2024 1:2024 1:42jn106.2 mg/dL<100 mg/dl WGCIAOS521-594 mg/dl NEAR OR ABOVE DUTGMXZ679-466 mg/dl BORDERLINE PWWJ533-543 mg/dl HIGH>190 mg/dl VERY HIGHAlkaline PhosphataseOct2024 1:Oct2024 1:pm52 U/F81-063Ovqazijyixk (%) (Auto)August 17, 2025 1:Oct2024 1:pm2.7 %0.9-7.0Triglycerides LevelAugust 17, 2025 1:Oct2024 1:85dk141 mg/dL<=150Alanine Aminotransferase (ALT/SGPT)August 17, 2025 1:2024 1:pm17 U/Y66-34ClithstkmaKtcwchr 2024 1:21pm August 17, 2025 1:pm35.9 %Below low nimbed51.0-48.0VLDL CholesterolOct2024 1:2024 1:pm20.8 mg/dLAspartate Amino Transf (AST/SGOT)August 17, 2025 1:Oct2024 1:pm20 U/L15-37 HemoglobinOct2024 1:2024 1:pm11.8 g/dLBelow low iappqb03.0-16.0BUN/Creatinine RatioOct2024 1:Oct2024 1:21pm20.8Immature Granulocyte # (Auto)August 17, 2025 1:2024 1:21pm0.01 10 3/uL0.00-0.03Blood Urea NitrogenOct2024 1:21pm August 17, 2025 1:21pm15.0 mg/dL7.0-18.0Immature Granulocyte % (Auto)August 17, 2025 1:pmOctober 2024 1:21pm0.2 %0.0-0.5Calcium LevelOct2024 1:October 2024 1:pm8.9 mg/dL8.5-10.1Lymphocytes # (Auto) August 17, 2025 1:pmOctober 2024 1:pm1.5 10 3/uL1.2-3.8Chloride LevelOct2024 1:October 2024 1:80lr139 mmol/L98-107 Lymphocytes (%) (Auto)August 17, 2025 1:October 2024 1:pm22.7 % 20.5-60.0Carbon Dioxide LevelOct2024 1:October 2024 1:pm 31.2 mmol/L21.0-32.0Mean Corpuscular HemoglobinOct2024 1:Oct2024 1:28.6 pg26.7-34.0CreatinineOct2024 1:Oct2024 1:pm0.72 mg/dL0.55-1.02Mean Corpuscular Hemoglobin ConcentOct2024 1:Oct2024 1:pm32.9 g/dL29.9-35.2Estimated GFR ()August 17, 2025 1:2024 1:pm>60>=60 mL/min/1.73m 2Mean Corpuscular VolumeOct2024 1:Oct2024 1:86.9 fL81.0-99.0Estimated GFR (Non- AmericanOctober 2024 1:pmOctober 2024 1:21pm>60>=60 mL/min/1.73m 2Monocytes # (Auto)August 17, 2025 1:pmOctober 2024 1:21pm0.3 10 3/uL0.3-0.8GlobulinOct2024 1:pmOctober 2024 1:21pm4.2 g/dLMonocytes (%) (Auto)August 17, 2025 1:pmOctober 2024 1:21pm4.9 %1.7-12.0Glucose LevelOct2024 1:Oct2024 1:pm85 mg/fC11-613Nbyn Platelet Volume August 17, 2025 1:pmOct2024 1:21pm9.4 fLBelow low normal9.5-13.5 Potassium LevelOct2024 1:October 2024 1:21pm3.6 mmol/L 3.5-5.1Neutrophils # (Auto)August 17, 2025 1:October 2024 1:21pm4.4 10 3/uL1.4-6.5Sodium LevelOct2024 1:pmOctober 2024 1:99fr608 mmol/J613-902Marsetrpijr (%) (Auto)August 17, 2025 1:October 2024 1:pm69.0 %43.0-75.0Total BilirubinOct2024 1:pmOctober 2024 1:21pm0.4 mg/dL0.2-1.0Platelet CountOct2024 1:pmOctober 2024 1:41lq885 10 3/aN645-401Ayfvm ProteinOct2024 1:pmOctober 2024 1:pm7.8 g/dL6.4-8.2Red Blood CountOct2024 1:pmOctober 2024 1:21pm4.13 10 6/uLBelow low normal4.20-5.40Red Cell Distribution WidthOctober 2024 1:21pmOctober 2024 1:21pm14.6 %11.0-15.0Corrected White Blood CountOctober 2024 1:21pmOctober 2024 1:21pm6.4 10 3/uL4.0-11.0 Vital Signs Vital Reading Result Reference Range Collection Date/Time Height 64 [in_i] August 17, 2025 10:68gdHclrso96.33 kgOctuofl [facility] 2024 10:55amHeart Rate73 /mhl49-230Vjnmofr 16th, 2025 10:55amRespiratory rate20 /rwn80-73Myjvyla 2024 10:55amOxygen saturation by Pulse %95-100Oct2024 10:55amBP Ocffrfsm311 mm[Hg]100-140Oct2024 10:55amBP Vganveenl77 mm[Hg]60-100Octuofl health - [facility] 2024 10:55amBMI (Body Mass Index)37.5 kg/o3Iukdnyn 2024 10:01spBrjhoi87 [in_i]August 30, 2025 10:69orUxnqcm22.33 kgOctuofl health - [facility] 2024 10:09amHeart Rate69 /oum02-834Agzvszh 29th, 2025 10:09amBP Systolic 140 mm[Hg]100-140Oct2024 10:09amBP Xziycqquz95 mm[Hg]60-100Octuofl health - [facility] 2024 10:09amBMI (Body Mass Index)37.5 kg/h2Wrdcpaz 2024 10:09am Advance Directives Advance Directive Response Recorded Date/ Time Advance Directives No March 15 8:04am Insurance Providers Guarantor Catherine Sheikh Address [address] [place] [id number] Info.Home Phone: Coverage Status Update:2025 Payer Group Member ID Coverage Type Subscriber Relationship to Subscriber Effective Date Expiration Date [facility] [id number] J Buck Id: [id number] [address] [facility] [address] Home Phone: Email: [email or web address] CoBarry [email or web address]/DAVIN [id number] J [facility] Id: [id number] [address] [facility] [address] Home Phone: Email: [email or web address] ColfParamogerda VALENTIN [id number] J Sheikh Id: [id number] [address] [facility] [address] Home Phone: Email: [email or web address] ColfBuckeymarissa Barrientos VALENTIN [id number] J Sheikh Id: [id number] [address] [facility] [address] Home Phone: Email: [email or web address] [email or web address] [email or web address] [id number] J Sheikh Id: [id number] [address] [facility] [address] Home Phone: Email: [email or web address] Encounters Encounter Location(s) Arrival/Admit Date Discharge/Departure Date Discharge/Departure Disposition Provider(s) Departed Physician/ Provider Office Visit -[facility] August 17, 2025 10:49am August 17, 2025 11:54am Discharged to home care or self care (routine discharge) Maddison Madrigal DO Departed Physician/ Provider Office Visit -[facility] August 30, 2025 9:57am August 30, 2025 10:30am Discharged to home care or self care (routine discharge) Fortino Walter APRN Recent Diagnosis Onset Date Admit Date Ex-smoker Unknown August 17 10:49am Facet arthritis of lumbar region Unknown August 17, 2025 10:49am GERD (gastroesophageal reflux disease) Unknown August 17, 2025 10:49am Hypercholesteremia Unknown August 17, 2025 10:49am Hypothyroidism Unknown August 17 10:49am Osteopenia Unknown August 17 10:49am Tingling of right upper extremity Unknown August 17, 2025 10:49am Assessments Diagnosis Onset Date Resolution Status Admit Date Ex-smoker acuteOctober 2024 10:49amFacet arthritis of lumbar regionacuteOctober 2024 10:49amGERD (gastroesophageal reflux disease)acuteOctober 2024 10:49amHypercholesteremiaacuteOctober 2024 10:49amHypothyroidismacute August 17, 2025 10:49amOsteopeniaacuteOctober 2024 10:49amTingling of right upper extremityacuteOctober 2024 10:49am Plan of Treatment Author Maddison Madrigal [facility] HospitalAuthoredOctober 2024 12:00pmcontinue protonix. Reviewed EGD from 05/31/25 reviewed NS note, referral to pain management; hopefully can stop the NSAID recheck TFT's, continue levothyroxine with post menopausal disorder, has been on alendronate. Recheck DEXA scan. recheck lipids, taking atorvastatin Order placed for low dose CT lung Could be heart related? but less likely. Given family history and personal history of ex-smoker, HLD, will get Stress Echo. Check labs. labs and tests ordered; return to clinic 1 month after all testing complete to review results and further plan of care. Future Tests Future scheduled test information is unavailable Pending Tests Test Name Ordered Date Scheduled Date STR cardiac stress/echo August 17, 2025 11:51 am XR dexa axial skeletonOctober 2024 11:44amCT lung screeningOctober 2024 11:45am Future Visits Future appointment information is unavailable Future Procedures Procedure Name Ordered Date Scheduled Date CMP with reflex to A1C August 17, 2025 11:51a m Lipid PanelOctober 2024 11:51am Future Medications Future medication information is unavailable Patient Instructions Patient instructions are unavailable
--- OUTSIDE RECORDS SUMMARY | 2025-09-06 09:20 | XMS_ITS | Encounter Summary ---
Author Organization [facility] Address [address] [facility] [place] [address] Care Team Providers Care Radio Division Lieutenant Name Role Phone Shaikh CHANDA Chapin Primary Care Provider [phone] Zachary Faulkner MD Primary Care Provider [phone] Farnaz Turpin NP Unavailable [phone] Encounter Details DateTypeDepartmentCare Team (Latest Contact Info)Kiyfnjjfkup64/23/2024Clinisync Result Encounter [facility] Department Unsolicited Shaikh Chapin MD [address] [place] [address] Social History Tobacco UseTypesPacks/DayYears UsedDateSmoking Tobacco: NeverPassive Smoke Exposure: NeverSmokeless Tobacco: NeverAlcohol UseStandard Drinks/WeekComments Yes0 (1 standard drink = 0.6 oz pure alcohol)[id number] Health Literacy AnswerDate RecordedHow often do you need to have someone help you when you read instructions, pamphlets, or other written material from your doctor or pharmacy? Never02/21/2025Humiliation, Afraid, Rape, and Kick questionnaireAnswerDate RecordedWithin the last year, have you been afraid of your partner or ex-partner?No02/21/2025Within the last year, have you been humiliated or emotionally abused in other ways by your partner or ex-partner?No02/21/2025 Within the last year, have you been kicked, hit, slapped, or otherwise physically hurt by your partner or ex-partner?No02/21/2025Within the last year, have you been raped or forced to have any kind of sexual activity by your part ner or ex-partner?No02/21/2025Social Connection and Isolation PanelAnswerDate RecordedIn a typical week, how many times do you talk on the phone with family, friends, or neighbors?More than three times a week02/21/2025How often do you get together with friends or relatives?Twice a week02/21/2025How often do you attend religion or judaism services?More than 4 times per year02/21/2025Do you belong to any clubs or organizations such as religion groups, unions, fraternal or athletic groups, or school groups?Yes02/21/2025How often do you attend meetings of the clubs or organizations you belong to?1 to 4 times per year02/21/2025re you , , , , never , or living with a partner?Eyiecqp6802/21/2025UDIT-CAnswerDate RecordedQ1: How often do you have a drink containing alcohol?Monthly or less02/21/2025Q2: How many drinks containing alcohol do you have on a typical day when you are drinking?3 or Q3: How often do you have six or more drinks on one occasion?Less than monthly 02/21/2025Overall Financial Resource Strain (CARDIA)AnswerDate RecordedHow hard is it for you to pay for the very basics like food, housing, medical care, and heating?Not hard at all02/21/2025PHQ-2AnswerDate RecordedPatient Health Questionnaire-2 Vgxti238Hunger Vital SignAnswerDate RecordedWithin the past 12 months, you worried that your food would run out before you got the money to buymore.Never true02/21/2025Within the past 12 months, the food you bought just didn't last and you didn't have money to get more.Never true 02/21/2025PRAPARE - TransportationAnswerDate RecordedIn the past 12 months, has lack of transportation kept you from medical appointments or from getting medications?No02/21/2025In the past 12 months, has lack of transportation kept you from meetings, work, or from getting things needed for daily living?No 02/21/2025Housing Stability Vital SignAnswerDate RecordedIn the last 12 months, was there a time when you were not able to pay the mortgage or rent on time?No 02/21/2025Number of Times Moved in the Last YearNot on file02/21/2025t any time in the past 12 months, were you homeless or living in a assisted (including now)? No02/21/2025CommentsUnknownSex and Gender InformationValueDate Recorded Sex Assigned at BirthNot on fileLegal ArbXpfedx61/15/2023 9:45 PM EDTGender IdentityNot on fileSexual OrientationNot on filedocumented as of this encounter Functional Status * AUDIT-C ScoreAnswerDate of ChsyqflhnrBahfeg743/22/2025 9:33 AM EDTMychart, Generic * Q1: How often do you have a drink containing alcohol?AnswerDate of Assessment AuthorMonthly or less02/21/2025 9:33 AM EDTMychart, Generic * Q2: How many drinks containing alcohol do you have on a typical day when you are drinking?AnswerDate of AssessmentAuthor3 or 9:33 AM EDT Mychart, Generic * Q3: How often do you have six or more drinks on one occasion?AnswerDate of AssessmentAuthorLess than dmlfwln3902/21/2025 9:33 AM EDTMychart, Generic documented as of this encounter Plan of Treatment Not on file documented as of this encounter Procedures Procedure NamePriorityDate/TimeAssociated DiagnosisCommentsXR DEXA AXIAL HTVUXVAF57/23/2024 10:18 AM EDT documented in this encounter Results * XR DEXA AXIAL SKELETON (05/24/2024 10:18 AM EDT)Anatomical RegionLaterality ModalityOtherSpecimen (Source)Anatomical Location / LateralityCollection Method / VolumeCollection TimeReceived Time05/24/2024 10:18 AM EDT Narrative 05/24/2024 10:20 AM EDT [facility] ?[address] ? [place] [address] ?XRay Report ? Signed ? Patient: HODGES,CATHERINE J ?MR#: [id number] ?? : 1960 ?Acct:[id number] ?? Age/Sex: 63 / F ?ADM Date: 05/24/24 ?? Loc: CT ? Attending Dr: Shaikh Tavares Oliver ? Ordering Physician: Shaikh Benito Chapin ?? Date of Service: 05/24/24 ?? Procedure(s): XR DEXA axial skeleton ?? Accession Number(s): [id number] ? cc: Shaikh Benito Chapin ? [facility] ? [address] [facility] ? [place] [address] ? Patient Name: ?? CATHERINE HODGES ? MRN: [facility]:[id number] ? date: 1960 ?Sex: F ?? Assigned Patient Location: CT ?? Current Patient Location: CT ?? Accession/Order Number: [id number] ?? Exam Date: 05/24/2024 ??09:10 ?Report Date: 05/24/2024 ??10:18 ? At the request of: ?TAVARES ? Procedure: ??XR DEXA axial skeleton ? EXAMINATION: XR DEXA axial skeleton ? HISTORY: Osteoporosis ? COMPARISON: DEXA bone densitometry 04/02/2021 ? TECHNIQUE: Dual-energy X-ray absorptiometry (DXA) was performed. ? FINDINGS: ?? SPINE ANALYSIS: ?? Average bone mineral density is 1.536 g/cm2. ?? T-score (standard deviation relative to young adult mean): 3.0 . ?? +5.3% change since prior study. ? HIP ANALYSIS: ?? Lowest bone mineral density is within the left femoral neck, 0.872 g/cm2. ?? T-score (standard deviation relative to young adult mean): -1.2 . ?? -2.6% change since prior study. ? XR/XR DEXA axial skeleton ?? IMPRESSION: ? World Health Organization Classification: Osteopenia - Moderate Fracture Risk ?? FRAX: Cannot calculate. ? Pharmacologic treatment recommendations ?? * No uniform recommendation applies to all patients. Management plans must be ?? individualized. ?? * Consider initiating pharmacologic treatment in postmenopausal women and men ?? >= 50 years of age who have the following: Primary fracture prevention: ?? * T-score <= - 2.5 at the femoral neck, total hip, lumbar spine, 33% radius (some uncertainty with existing data) by DXA. ?? * Low bone mass (osteopenia: T-score between - 1.0 and - 2.5) at the femoral ?? neck or total hip by DXA with a 10-year hip fracture risk >= 3% or a 10-year major osteoporosis-related fracture risk >= 20% (i.e., clinical vertebral, hip, ?? forearm, or proximal humerus) based on the US-adapted FRAXregistered model. ?? Secondary fracture prevention: ?? * Fracture of the hip or vertebra regardless of BMD [4, 5]. ?? * Fracture of proximal humerus, pelvis, or distal forearm in persons with low ?? bone mass (osteopenia: T-score between - 1.0 and - 2.5). The decision to treat ? should be individualized in persons with a fracture of the proximal humerus, ?? pelvis, or distal forearm who do not have osteopenia or low BMD [12, 13]. ?? Haylee MS, Chris SL, Anival KL, Deven EM, Balwinder KG, AJ, Justo ?? ES. ?? The clinician's guide to prevention and treatment of osteoporosis. Osteoporos ?? Int. 2021;33(10):3389-9644. doi: 10.1007/k40469-944-57489-l. Epub 2021 ? 28. Erratum in: Osteoporos Int. 2021May 29;: PMID: 34703463; PMCID: ?? [id number]. ? Electronically authenticated by: SHAHID ??ODESSA ?? Date: 05/24/2024 ??10:18 ? Dictated By: ?Shahid Molina M.D. ? Signed By: ?05/24/24 1020 ? DD/ 1018 ? TD/TT: ? Surplus Property Disposal Agent: Procedure Note Radiology, Radiologist, MD - 05/24/[address] [address] XRay Report Signed Patient: CATHERINE HODGES JMR#: [id number] : 1960cct:[id number] Age/Sex: 63 / FADM Date: 05/24/24 Loc: CT Attending Dr: Shaikh Tavares Oliver Ordering Physician: Shaikh Benito Chapin Date of Service: 05/24/24 Procedure(s): XR DEXA axial skeleton Accession Number(s): [id number] cc: Shaikh Benito Chapin The [address] [address] Patient Name: CATHERINE HODGES MRN: [id number] date: 1960 Sex: F Assigned Patient Location: CT Current Patient Location: CT Accession/Order Number: [id number] Exam Date: 05/24/2024 09:10 Report Date: 05/24/2024 [...] 10-year hip fracture risk >= 3% or h90-bdva major osteoporosis-related fracture risk >= 20% (i.e., [...] to prevention and treatment of osteoporosis.Osteoporos Int. 2021;33(10):6604-3695. doi: 10.1007/r32865-230-57777-l. Ep. Erratum in: Osteoporos Int. 2021May 29;: PMID: 18391911; PMCID: [id number]. Electronically authenticated by: SHAHID MOLINA Date: 05/24/2024 10:18 Dictated By: Shahid Molina M.D. Signed By:05/24/24 1020 DD/ 1018 TD/TT: Surplus Property Disposal Agent: Authorizing ProviderResult TypeResult StatusShaikh Tavares MDCLINISYNC IMAGING Final Result documented in this encounter Visit Diagnoses Not on filedocumented in this encounter Care Teams Team MemberRelationshipSpecialtyStart DateEnd Date Shaikh Chapin MD PCP - GeneralInternal Medicine Zachary Faulkner MD [address] [place] [address] PCP - GeneralFamily Medicine07/27/24 Farnaz Turpin NP Nurse PractitionerFamily Medicine07/27/24documented as of this encounter
--- OUTSIDE RECORDS SUMMARY | 2025-09-06 09:20 | XMS_ITS | Encounter Summary ---
Author Organization [facility] Address [address] [facility] [place] [address] Care Team Providers Care Hvac Tech Name Role Phone Shaikh CHANDA Chapin Primary Care Provider [phone] Zachary Faulkner MD Primary Care Provider [phone] Farnaz Turpin NP Unavailable [phone] Encounter Details DateTypeDepartmentCare Team (Latest Contact Info)Ckoodszvkkl95/02/2024Clinisync Result Encounter [facility] External Department Unsolicited Shaikh Chapin MD [address] [place] [address] Social History Tobacco UseTypesPacks/DayYears UsedDateSmoking Tobacco: NeverPassive Smoke Exposure: NeverSmokeless Tobacco: NeverAlcohol UseStandard Drinks/WeekComments Yes0 (1 standard drink = 0.6 oz pure alcohol)[id number] Health Literacy AnswerDate RecordedHow often do you [...] relatives?Twice a week02/21/2025How often do you attend yarsani or denominational services?More than 4 times per year02/21/2025Do you belong to any clubs or organizations such as yarsani groups, unions, fraternal or athletic groups, or school groups?Yes02/21/2025How often do you attend meetings of the clubs or organizations you belong to?1 to 4 times per year02/21/2025re you , , , , never , or living with a partner?Cfbjwhd9302/21/2025UDIT-CAnswerDate RecordedQ1: How often do you have a [...] heating?Not hard at all02/21/2025PHQ-2AnswerDate RecordedPatient Health Questionnaire-2 Fmfxo217Hunger Vital SignAnswerDate RecordedWithin the past 12 months, [...] were you homeless or living in a fdc (including now)? No02/21/2025CommentsUnknownSex and Gender InformationValueDate Recorded Sex Assigned at BirthNot on fileLegal CdkOlzvmu61/15/2023 9:45 PM EDTGender IdentityNot on fileSexual OrientationNot on filedocumented as of this encounter Functional Status * AUDIT-C ScoreAnswerDate of YnsrxnhldfWkaeni118/22/2025 9:33 AM EDLenore, Generic * Q1: How often do you have a drink containing alcohol?AnswerDate of Assessment AuthorMonthly or less02/21/2025 9:33 AM Dominik Generic * Q2: How many drinks containing alcohol do you have on a typical day when you are drinking?AnswerDate of AssessmentAuthor3 or 9:33 AM EDT Clemente, Generic * Q3: How often do you have six or more drinks on one occasion?AnswerDate of AssessmentAuthorLess than hxiphsk3802/21/2025 9:33 AM Dominik, Generic * Over the past 2 weeks, how often have you been bothered by any of the following problems?QuestionAnswerDate of AssessmentAuthorLittle interest or pleasure in doing thingsNot at all02/02/2024 11:22 AM Margie Bhatti MA Feeling down, depressed, or hopelessNot at all02/02/2024 11:22 AM Margie Bhatti MAPatient Health Questionnaire-2 Retio700 11:22 Margie Strauss MA documented as of this encounter Plan of Treatment Not on file documented as of this encounter Procedures Procedure NamePriorityDate/TimeAssociated DiagnosisCommentsXR CHEST 2V02/02/2024 1:08 PM EDT documented in this encounter Results * XR CHEST 2V (02/02/2024 1:08 PM EDT)Anatomical RegionLateralityModalityOther Specimen (Source)Anatomical Location / LateralityCollection Method / Volume Collection TimeReceived Time02/02/2024 1:08 PM EDT Narrative 02/02/2024 1:10 PM EDT [facility] ?[address] ? [place], [facility] ?XRay Report ? Signed ? Patient: CATHERINE HODGES ?MR#: [id number] ?? : 1960 ?Acct:[id number] ?? Age/Sex: 63 / F ?ADM Date: 02/02/24 ?? Loc: RAD ? Attending Dr: Shaikh Tavares Oliver ? Ordering Physician: Shaikh Benito Chapin ?? Date of Service: 02/02/24 ?? Procedure(s): XR chest 2V ?? Accession Number(s): [id number] ? cc: Shaikh Benito Chapin ? [facility] ? [address] [place] [address] ? [place] [address] ? Patient Name: ?? CATHERINE HODGES ? MRN: [facility]:[id number] ? date: 1960 ?Sex: F ?? Assigned Patient Location: RAD ?? Current Patient Location: RAD ?? Accession/Order Number: [id number] ?? Exam Date: 02/02/2024 ??12:22 ?Report Date: 02/02/2024 ??13:08 ? At the request of: ?TAVARES ? Procedure: ??XR chest 2V ? EXAM: XR chest 2V ? HISTORY: non-recurrent acute supportive otitis media both ears . Wheezing and ?? coughing ? COMPARISON: None. ? TECHNIQUE: Upright PA and lateral chest x-ray ? FINDINGS: The heart is not enlarged and the vasculature is not distended. A ?? very small amount of atelectasis or infiltrate is seen at both lung bases. The ? mid and upper lungs are clear. There is no evidence of an effusion or ?? pneumothorax. The osseous structures are grossly intact. ? XR/XR chest 2V ?? IMPRESSION: ? A small amount of atelectasis or infiltrate is seen at the lung bases. There ?? is ?? no evidence of overt cardiac decompensation. Direct comparison with a previous ? study would be helpful in determining the chronicity of these findings. ? Electronically authenticated by: OTONIEL ??TERENCE ?? Date: 02/02/2024 ??13:08 ? Dictated By: ?Otoniel Dominguez M.D. ? Signed By: ?02/02/24 1310 ? DD/ 1308 ? TD/TT: ? Email Marketing Executive: Procedure Note Radiology, Radiologist, MD - 02/02/2024 [place] [address] XRay Report Signed Patient: CATHERINE HODGES JMR#: [id number] : 1960cct:[id number] Age/Sex: 63 / FADM Date: 02/02/24 Loc: [facility] Attending Dr: Shaikh Tavares Oliver Ordering Physician: Shaikh Benito Chapin Date of Service: 02/02/24 Procedure(s): XR chest 2V Accession Number(s): [id number] cc: Shaikh Benito Chapin The [place] [address] Patient Name: CATHERINE HODGES MRN: [facility]:[id number] date: 1960 Sex: F Assigned Patient Location: [facility] Current Patient Location: [facility] Accession/Order Number: [id number] Exam Date: 02/02/2024 12:22 Report Date: 02/02/2024 [...] M.D. Signed By:02/02/24 1310 DD/ 1308 TD/TT: Email Marketing Executive: Authorizing ProviderResult TypeResult StatusShdavina Chapin MDCLINISYNC IMAGING Final Result documented in this encounter Visit Diagnoses Not on filedocumented in this encounter Care Teams Team MemberRelationshipSpecialtyStart DateEnd Date Shaikh Chapin MD PCP - GeneralInternal Medicine Zachary Faulkner MD [address] [place] [address] PCP - GeneralFamily Medicine07/27/24 Farnaz Turpin NP Nurse PractitionerFamily Medicine07/27/24documented as of this encounter
--- OUTSIDE RECORDS SUMMARY | 2025-09-06 09:20 | XMS_ITS | Clinical Summary ---
Author Organization [facility] Address [address] [place] [address] Care Team Providers Care Drywall Finishing Foreman Name Role Phone Zachary Faulkner MD Primary Care Provider [phone] Allergies Active AllergyReactionsCriticalityNoted DateCommentsCephalexinHivesMedium 01/04/20246788NthubbthmqiOdflpPtqjet64/04/2024 Medications MedicationSigDispense QuantityRefillsLast FilledStart DateEnd DateStatus kmrmjfmi-ydu-zkkrjqh fumarate (Multi Vitamin) 9 mg iron/15 mL liquid Take by mouth.04/23/2021ctive alendronate (Fosamax) 70 mg tablet Take 70 mg by mouth once a week.08/15/2021ctive atorvastatin (Lipitor) 10 mg tablet Take 10 mg by mouth in the morning.1Active cetirizine (ZyrTEC) 10 mg tablet Take 10 mg by mouth in the morning.5Active levothyroxine (Synthroid, Levoxyl) 100 mcg tablet Take 100 mcg by mouth in the morning.5Active methocarbamol (Robaxin) 750 mg tablet Take 750 mg by mouth if needed in the morning, at noon, in the evening, and at bedtime.5Active nabumetone (Relafen) 500 mg tablet TAKE 1 TABLET BY MOUTH 2 TIMES A DAY NEEDED FOR MODERATE PAIN OR MILD PAIN 5Active omeprazole (PriLOSEC) [address] capsule TAKE 1 CAPSULE BY MOUTH IN THE MORNING AND 1 CAPSULE IN THE EVENING. TAKE BEFORE MEALS.Active ascorbic acid (Vitamin C) 500 mg tablet Take 500 mg by mouth in the morning.Active docosahexaenoic acid/epa (FISH OIL ORAL) Take by mouth.Active pb-ser-ZK-vit X-texxpq-vkymxup 200 mcg-15 mcg- 5 mg-1 mg capsule Take by mouth.Active Encounters DateTypeDepartmentCare WsmiZrmsgoycjwu13/20/2025 1:15 PM EDTOffice Visit [facility] [address] [place] [id number] Josh Bahena MD Facet arthropathy, lumbar (Primary Dx)06/21/2025 - 06/21/2025 11:59 PM EDT Hospital Encounter [facility] Radiology External Films [address] [place] [address] Discharge Disposition: Home or Self Care (01)06/20/2025 - 06/20/2025 11:59 PM EDTHospital Encounter [facility] Radiology External Films [address] [place] [address] Discharge Disposition: Home or Self Care ()from Last 3 Months Family History Medical HistoryRelationNameCommentsClotting disorderFather's SisterBRANDON GADBERRY MY SONDiabetesMotherJEANNE HERMANRelationNameStatusCommentsFather's SisterBRANDON GADBERRY MY SONAliveMotherJEANNE HERMANAlive Social History Tobacco UseTypesPacks/DayYears UsedDateSmoking Tobacco: FormerCigarettesQuit: 05/05/2007Smokeless Tobacco: Never Tobacco Cessation:Counseling Given: Not Answered Alcohol UseStandard Drinks/WeekCommentsYes1 (1 standard drink = 0.6 oz pure alcohol)PHQ-2AnswerDate RecordedPatient Health Questionnaire-2 Jloyk533 CommentsUnknownSex and Gender InformationValueDate RecordedSex Assigned at RgyknSlzcxj88/17/2025 12:55 PM EDTLegal RegFxnuji19/01/2025 9:38 AM EDTGender ZzqkvokaVwyrew43/17/2025 12:55 PM EDTSexual OrientationChoose not to disclose 06/18/2025 12:55 PM EDT Last Filed Vital Signs Vital SignReadingTime TakenCommentsBlood Ortqbbxs028/7608 1:05 PM EDT Kmmlg327706/21/2025 1:05 PM EDTTemperature--Respiratory Rate--Oxygen Moaabklyqh28% 06/21/2025 1:05 PM EDTInhaled Oxygen Concentration--Lwvcnl85.3 kg (210 lb) 06/21/2025 1:05 PM PPPXojsau340.6 cm (5' 4 )06/21/2025 1:05 PM EDTBody Mass Index36.05006/21/2025 1:05 PM EDT Plan of Treatment Health MaintenanceDue DateLast DoneCommentsCT Uwtovbruzfls1960FIT-DNA 1960FIT1960FOBT1960Medicare Annual Wellness (AWV)1960 Medicare Initial Physical (IPPE)1960 1505Ayirlxrfroswb1959Pap Smear 1980Adult Ighsoyl0110/03/1981Cervical Cancer Whvowlixp17/02/1989HPV/Cotest 10/03/19892837Mkanchiex70/02/1999Pneumococcal Vaccine: 50+ Years (1 of 1 - PCV) 2009COVID-19 Vaccine ( season), 08/24/2023, 08/23/2022, Additional history existsInfluenza Vaccine (#1), 08/24/2023, 09/16/2022, Additional history existsDepression Ucrzsdntj26/20/2026 06/21/2025Fall Risk Sjepgixwq52/1077Mjzuvlvythu77/11/203108/09/2021 Colorectal Cancer Pewwrdbgs51/11/2031Zoster CyxwqqzrPfjuhvpcv87/07/2023, 02/04/2023HIB VaccinesAged OutNo longer eligible based on patient's age to complete this topicHPV VaccinesAged OutNo longer eligible based on patient's age to complete this topicIPV VaccinesAged OutNo longer eligible based on patient's age to complete this topicMeningococcal B VaccineAged OutNo longer eligible based on patient's age to complete this topicMeningococcal VaccineAged OutNo longer eligible based on patient's age to complete this topicRotavirus Vaccines Aged OutNo longer eligible based on patient's age to complete this topic Procedures Procedure NamePriorityDate/TimeAssociated DiagnosisCommentsXR TRANSFER OF OUTSIDE YSUQQIclnhzs02/20/2025 12:00 AM EDT XR TRANSFER OF OUTSIDE PYLPZJooglfb00/19/2025 12:00 AM EDT from Last 3 Months Results * XR transfer of outside films (06/21/2025 12:00 AM EDT) Only the most recent of2 resultswithin the time period is included. Specimen (Source)Anatomical Location / LateralityCollection Method / Volume Collection TimeReceived Time Narrative IMAGING - 06/21/2025 1:35 PM EDT This order has been auto-finalized and does not contain a result. Authorizing ProviderResult TypeResult StatusJosh Bahena MDIMJonny XR PROCEDURES Final ResultPerforming OrganizationAddressCity/State/ZIP CodePhone Number IMAGING from Last 3 [place] [address] Care Teams Team MemberRelationshipSpecialtyStart DateEnd Date Zachary Faulkner MD [address] [place] [address] [facility]/25
--- OUTSIDE RECORDS SUMMARY | 2025-09-06 09:20 | XMS_ITS | Encounter Summary ---
Author Organization [facility] Address [address] [facility] [place] [address] Care Team Providers Care Mold Blower Name Role Phone Shaikh CHANDA Chapin Primary Care Provider [phone] Zachary Faulkner MD Primary Care Provider [phone] Faranz Turpin NP Unavailable [phone] Encounter Details DateTypeDepartmentCare Team (Latest Contact Info)Wdkkgakytbo92/24/2024Clinisync Result Encounter [facility] External Department Unsolicited Shaikh Chapin MD [address] [place] [address] Social History Tobacco UseTypesPacks/DayYears UsedDateSmoking Tobacco: NeverPassive Smoke Exposure: NeverSmokeless Tobacco: NeverAlcohol UseStandard Drinks/WeekComments Yes0 (1 standard drink = 0.6 oz pure alcohol)PAINCAFCDVWM5557 Health Literacy AnswerDate RecordedHow often do you [...] relatives?Twice a week02/21/2025How often do you attend gnosticist or zoroastrianism services?More than 4 times per year02/21/2025Do you belong to any clubs or organizations such as gnosticist groups, unions, fraternal or athletic groups, or school groups?Yes02/21/2025How often do you attend meetings of the clubs or organizations you belong to?1 to 4 times per year02/21/2025re you , , , , never , or living with a partner?Zbvujfy9602/21/2025UDIT-CAnswerDate RecordedQ1: How often do you have a [...] heating?Not hard at all02/21/2025PHQ-2AnswerDate RecordedPatient Health Questionnaire-2 Hbmpx501Hunger Vital SignAnswerDate RecordedWithin the past 12 months, [...] were you homeless or living in a senior care (including now)? No02/21/2025CommentsUnknownSex and Gender InformationValueDate Recorded Sex Assigned at BirthNot on fileLegal VzaJdpjcn13/15/2023 9:45 PM EDTGender IdentityNot on fileSexual OrientationNot on filedocumented as of this encounter Functional Status * AUDIT-C ScoreAnswerDate of VjcqpmujojHknwev605/22/2025 9:33 AM EDTMychart, Generic * Q1: How [...] drinks on one occasion?AnswerDate of AssessmentAuthorLess than oetgggt0502/21/2025 9:33 AM EDTMychart, Generic documented as of this encounter Plan of Treatment Not on file documented as of this encounter Procedures Procedure NamePriorityDate/TimeAssociated DiagnosisCommentsCT CHEST WO CON 05/25/2024 5:43 AM EDT documented in this encounter Results * CT CHEST WO CON (05/25/2024 5:43 AM EDT)Anatomical RegionLateralityModality OtherSpecimen (Source)Anatomical Location / LateralityCollection Method / VolumeCollection TimeReceived Time07/ 5:43 AM EDT Narrative 05/25/2024 5:47 AM EDT [facility] ?[address] ? [place] [address] ? CT Scan Report ? Signed ? Patient: HODGES,CATHERINE J ?MR#: [id number] ?? : 1960 ?Acct:[id number] ?? Age/Sex: 63 / F ?ADM Date: 05/24/24 ?? Loc: CT ? Attending Dr: Shaikh Tavares Oliver ? Ordering Physician: Shaikh Benito Chapin ?? Date of Service: 05/24/24 ?? Procedure(s): CT chest wo con ?? Accession Number(s): [id number] ? cc: Shaikh Benito Chapin ? [facility] ? [address] [facility] ? [place] [address] ? Patient Name: ?? CATHERINE HODGES ? MRN: [facility]:[id number] ? date: 1960 ?Sex: F ?? Assigned Patient Location: CT ?? Current Patient Location: ? Accession/Order Number: [id number] ?? Exam Date: 05/24/2024 ??09:00 ?Report Date: 05/25/2024 ??05:43 ? At the request of: ?TAVARES ? Procedure: ??CT chest wo con ? EXAMINATION: CT chest wo con ? HISTORY: Multiple Lung Nodules ; follow-up lung nodules ? COMPARISON: CT chest 12/16/2022, 04/16/2021 ? TECHNIQUE: Axial, Coronal, and Sagittal images were created without the ?? administration of IV contrast material. Dose reduction techniques were ?? achieved ?? by using automated exposure control and/or adjustment of mA and/or kV ?? according ?? to patient size and/or use of iterative reconstruction technique. ? FINDINGS: ?? LUNGS: Several small 5 mm or smaller nodules scattered within the lungs; ?? unchanged. No new nodules or acute infiltrates. ?? PLEURA: No mass, effusion, or pneumothorax. ?? VASCULATURE: No abnormality. ?? MO: No mass or pathologic adenopathy. ?? MEDIASTINUM: No mass or pathologic adenopathy. ?? CARDIAC: No enlargement, pericardial thickening, or pericardial effusion. ?? Coronary Artery calcifications: ?? AORTA: No aneurysm or dissection. ?? CHEST WALL: No mass or axillary adenopathy ?? BONES: No bone lesion or fracture. ?? LIMITED ABDOMEN: Several small stones within noninflamed gallbladder. Limited ?? images of the upper abdomen. ?? OTHER: Negative. ? CT/CT chest wo con ?? IMPRESSION: ? 1. Lung-RADS 2- Benign Appearance or Behavior. Nodules with a very low ?? likelihood of becoming a clinically active cancer due to size or lack of ?? growth. Follow-up CT Chest in 1 year if patient is at increased risk for lung ?? cancer. ? Electronically authenticated by: SHAHID ??ODESSA ?? Date: 05/25/2024 ??05:43 ? Dictated By: ?Shahid Molina M.D. ? Signed By: ?05/25/24 0547 ? DD/ 0543 ? TD/TT: ? Java Sybase Developer: Procedure Note Radiology, Radiologist, MD - 05/25/2024 [place] [address] CT Scan Report Signed Patient: CATHERINE HODGES R#: [id number] : 1960cct:[id number] Age/Sex: 63 / FADM Date: 05/24/24 Loc: CT Attending Dr: Shaikh Tavares Oliver Ordering Physician: Shaikh Benito Chapin Date of Service: 05/24/24 Procedure(s): CT chest wo con Accession Number(s): [id number] cc: Shaikh Benito Chapin [facility] [place] [address] Patient Name: CATHERINE HODGES MRN: [id number]:[id number] date: 1960 Sex: F Assigned Patient Location: CT Current Patient Location: Accession/Order Number: [id number] Exam Date: 05/24/2024 09:00 Report Date: 05/25/2024 [...] M.D. Signed By:05/25/24 0547 DD/ 0543 TD/TT: Java Sybase Developer: Authorizing ProviderResult TypeResult StatusShaikh Tavares MDCLINISYNC IMAGING Final Result documented in this encounter Visit Diagnoses Not on filedocumented in this encounter Care Teams Team MemberRelationshipSpecialtyStart DateEnd Date Shaikh Chapin MD PCP - GeneralInternal Medicine// Zachary Faulkner MD [address] [place] [address] PCP - GeneralFamily Medicine07/27/24 Farnaz Turpin NP Nurse PractitionerFamily Medicine07/27/24documented as of this encounter
--- OUTSIDE RECORDS SUMMARY | 2025-09-06 09:20 | XMS_ITS | Clinical Summary ---
Author Organization [facility] Address [address] [facility] [place] [address] Care Team Providers Care Fire Hazard Inspector Name Role Phone Zachary Faulkner MD Primary Care Provider [phone] Farnaz Hoffmann STRATEGIC COMMUNICATIONS SPECIALIST Unavailable [phone] Allergies Active AllergyReactionsCriticalityNoted DateCommentsClindamycinHivesMedium 01/04/20248946HkfrahkqopRgbviLcdyyp95/04/2024 Medications MedicationSigDispense QuantityRefillsLast FilledStart DateEnd DateStatus atorvastatin (Lipitor) 10 MG tablet Indications:Hyperlipidemia, unspecified hyperlipidemia typeTake 1 tablet (10 mg) by mouth Daily 90 tablet 5Active alendronate (Fosamax) 70 MG tablet Indications:Osteopenia after menopauseTake 1 tablet (70 mg) by mouth every 7 (seven) days Take in the morning with a full glass of water,on an empty stomach, and do not take anything else by mouth or lie down for the next 30 min. 12 tablet 5Active methocarbamol (Robaxin) 750 MG tablet Indications:Chronic bilateral low back pain with right-sided sciaticaTake 1 tablet (750 mg) by mouth 4 (four) times a day as needed for muscle spasms 60 tablet 5Active omeprazole (PriLOSEC) [address] capsule Indications:Gastroesophageal reflux disease without esophagitisTake 1 capsule (40 mg) by mouth in the morning and 1 capsule (40 mg) in the evening. Take before meals. 180 capsule 5Active cetirizine (ZyrTEC) 10 MG tablet Indications:Viral upper respiratory tract infectionTake 1 tablet (10 mg) by mouth Daily 30 tablet 5Active fluticasone (Flonase) 50 MCG/ACT nasal spray Indications:Viral upper respiratory tract infectionAdminister 1-2 sprays into each nostril Daily Shake gently. Before first use, prime pump. After use, clean tip and replace cap. 16 g 506Active levothyroxine (Synthroid, Levoxyl) 100 MCG tablet Indications:Other specified hypothyroidismTAKE 1 TABLET BY MOUTH EVERY DAY 90 tablet 5Active nabumetone (Relafen) 500 MG tablet Indications:Chronic bilateral low back pain with right-sided sciaticaTAKE 1 TABLET BY MOUTH 2 TIMES A DAY NEEDED FOR MODERATE PAIN OR MILD PAIN 60 tablet 5Active Active Problems ProblemNoted DateDiagnosed DateGlobus scckddcof17/09/2025 Assessment & Plan (05/10/2025 11:13 AM EDT): Symptoms unchanged with omeprazole and refer to GI. Degeneration of intervertebral disc of lumbar region [...] forspasms. If no improvement will need MRI. Class 2 severe obesity due to excess calories with serious comorbidity and body mass index (BMI) of36.0 to 36.9 in adult02/23/2025 Assessment & Plan (02/23/2025 11:00 AM EDT): Weight loss indicated. Gastroesophageal reflux hldcgfg5302/15/2024 Assessment & Plan (05/10/2025 11:13 AM EDT): [...] using it daily. Osteopenia of left femoral neck02/15/2024 Assessment & Plan (05/17/2024 1:23 PM EDT): Osteoporosis noted DEXA scan 04/22 ; currently on alendronate, calcium and Vit D Repeat DEXA scan Assessment & Plan (02/15/2024 2:41 PM EDT): On DEXA scan 04/22 on alendronate, calcium and Vit D Hypothyroidism in adult01/04/2024 Assessment & Plan (05/17/2024 1:21 PM EDT): TSH at goal. 05/25 C/w levothyroxine 100 mcg Assessment & Plan (02/15/2024 2:41 PM EDT): TSH at goal. 12/22/23 C/w levothyroxine 100 mcg - Check TSH Before next appointment Assessment & Plan (01/04/2024 2:46 PM EST): TSH at goal. 12/22/23 C/w levothyroxine 100 mcg - was increased due to elevated TSH on previous lab measurement Yhugncvzoieq28/04/2024 Assessment & Plan (02/23/2025 11:00 AM EDT): [...] panel 12/26 at goal Calculus of gallbladder without cholecystitis without czfbycumvzk65/04/2024 Multiple lung nodules on CT01/04/2024 Assessment & Plan (05/17/2024 1:19 PM EDT): Noted on CT chest 12/2022 - Will repeat now as more than a year to ensure stability. Former smoker - about 20 pack year smoking hx. Assessment & Plan (01/04/2024 2:46 PM EST): Stable in CT chest 12/2022 - repeat needed in 2023 Former smoker. Former hmhshg8601/04/2024 Resolved Problems ProblemNoted DateDiagnosed DateResolved DateViral upper respiratory tract zidqjdguu09/ Assessment & Plan (11/30/2024 1:25 PM EST): Runny nose Sneezing Sinus congestion Ear pain Headache Ongoing 3 days. Discussed likely viral etiology,. Will treat with Flonase/Zyrtec/conservative measures. Well adult exam/ Assessment & Plan (05/17/2024 1:21 PM EDT): Patient here for Annual Wellness Exam. Reviewed medical, surgical and social hx. Reviewed medication list. Health related questions and concerns addressed and answered. Patient provided appropriate education on chronic medical conditions and prescription medications. Non-recurrent acute suppurative otitis media of both ears without spontaneous rupture of tympanic kitunyzyq17/Wheezing-associated respiratory lnrbrlvud99Respiratory illness with fever/ Lxuemisbc97/ellulitis of face Assessment & Plan (01/04/2024 2:47 PM EST): ED visit for it on 12/27 - resolved now. Using bactrim DS No pain, erythema noted today on exam Osteopenia after hnxaeugqy80/ Encounters DateTypeDepartmentCare CyjnKfzsyyugsvn32/11/2025Refill [facility] [address] [place] [address] Zachary Faulkner MD Chronic bilateral low back pain with right-sided sciaticafrom Last 3 Months Immunizations ImmunizationAdministration DatesNext DueInfluenza, Seasonal, Quadrivalent, Rmznabpxus64/23/2023Influenza, injectable, vdsnoozgxlwx94/03/2020,08/10/2018 Influenza, injectable, quadrivalent, preservative free09/16/2022,08/19/2021, 08/21/2017Influenza, seasonal, mcnxqgipxi76/16/0613WZSE-VFB-9 (COVID-19) vaccine, mRNA, spike protein, LNP, PF, daysi-sucrose, 30 mcg/0.3 mL08/24/2023 Zoster, Nrdldvikdil45/07/2023,02/04/2023 Family History Medical HistoryRelationNameCommentsRespiratory illnessFathercause of DiabetesMotherHeart diseaseMotherHypertensionMotherRespiratory illnessMother cause of asnzaOyxhtelcMgvhUroddvDfkxtzfiJektdgtx9ZtlnvplsOalpfXtzfqqAeeprthp ZtrajeZvnzoyynEnaxsOgoyvJjueuda0WrdKzklg Social History Tobacco UseTypesPacks/DayYears UsedDateSmoking Tobacco: NeverPassive Smoke Exposure: NeverSmokeless Tobacco: Never Tobacco Cessation:Counseling Given: Not Answered Alcohol UseStandard Drinks/WeekCommentsYes0 (1 standard drink = 0.6 oz pure alcohol)[id number] Health LiteracyAnswerDate RecordedHow often do you need to have someone help you when you read instructions, pamphlets, or other written material from your doctor or pharmacy?Never02/21/2025Humiliation, Afraid, Rape, and Kick questionnaireAnswerDate RecordedWithin the last year, have you been afraid of your partner or ex-partner?No02/21/2025Within the last year, have you been humiliated or emotionally abused in other ways by your partner or ex-partner?No02/21/2025Within the last year, have you been kicked, hit, slapped, or otherwise physically hurt by your partner or ex-partner?No02/21/2025Within the last year, have you been raped or forced to have any kind of sexual activity by your partner or ex-partner?No02/21/2025Social Connection and Isolation Panel AnswerDate RecordedIn a typical week, how many times do you talk on the phone with family, friends, or neighbors?More than three times a week02/21/2025How often do you get together with friends or relatives?Twice a week02/21/2025How often do you attend roman catholic or religion services?More than 4 times per year 02/21/2025Do you belong to any clubs or organizations such as roman catholic groups, unions, fraternal or athletic groups, or school groups?Yes02/21/2025How often do you attend meetings of the clubs or organizations you belong to?1 to 4 times per year02/21/2025re you , , , , never , or living with a partner?Qodymhn0902/21/2025UDIT-CAnswerDate RecordedQ1: How often do you have a drink containing alcohol?Monthly or less02/21/2025Q2: How many drinks containing alcohol do you have on a typical day when you are drinking?3 or Q3: How often do you have six or more drinks on one occasion?Less than grhztks0002/21/2025Overall Financial Resource Strain (CARDIA)AnswerDate RecordedHow hard is it for you to pay for the very basics like food, housing, medical care, and heating?Not hard at all02/21/2025PHQ-2AnswerDate Recorded Patient Health Questionnaire-2 Vampd891Hunger Vital SignAnswerDate RecordedWithin the past 12 months, you worried that your food would run out before you got the money to buymore.Never true02/21/2025Within the past 12 months, the food you bought just didn't last and you didn't have money to get more.Never true02/21/2025PRAPARE - TransportationAnswerDate RecordedIn the past 12 months, has lack of transportation kept you from medical appointments or from getting medications?No02/21/2025In the past 12 months, has lack of transportation kept you from meetings, work, or from getting things needed for daily living?No02/21/2025Housing Stability Vital SignAnswerDate RecordedIn the last 12 months, was there a time when you were not able to pay the mortgage or rent on time?No02/21/2025Number of Times Moved in the Last YearNot on file 02/21/2025t any time in the past 12 months, were you homeless or living in a long-term (including now)?No02/21/2025CommentsUnknownSex and Gender InformationValueDate RecordedSex Assigned at BirthNot on fileLegal SexFemale 01/14/2023 9:45 PM EDTGender IdentityNot on fileSexual OrientationNot on file Last Filed Vital Signs Vital SignReadingTime TakenCommentsBlood Kvkjnlxb570/7207 10:50 AM EDT Uqexu966905/10/2025 10:50 AM QGVVrkhuhuoiav83.4 ??C (95.7 ??F)05/10/2025 10:50 AM EDTRespiratory Xhxn186005/10/2025 10:50 AM EDTOxygen Qmwmuriwlf31%05/10/2025 10:50 AM EDTInhaled Oxygen Concentration--Yulher311 kg (224 lb)05/10/2025 10:50 AM EDT Uyalox908.1 cm (5' 5 )05/10/2025 10:50 AM EDTBody Mass Index37.28005/10/2025 10:50 AM EDT Plan of Treatment Health MaintenanceDue DateLast DoneCommentsCT Ihocvorjzjag1959FIT-DNA 1960FIT1960FOBT1960 8695Ycwgulwlmbhik1959Pap Smear1980 HPV/Erwtgc0210/03/1989Pneumococcal Vaccine: 65+ Years (1 of 1 - PCV)2009 COVID-19 Vaccine ( season), 03/25/2022, 09/10/2021, Additional history existsInfluenza Vaccine (#1)/, 08/24/2023, 09/16/2022, Additional history existsCervical Cancer Screening 11/30/2025Postponed from 1989 (Patient Refused)Ezhdpixpy70/14/2026 12/16/2024, 4311Hcqtlnmtftj43/11/203108/09/2021, 11/02/2020olorectal Cancer Abssnktiy44/11/2031 Procedures Procedure NamePriorityDate/TimeAssociated DiagnosisCommentsMM TOMOSYNTHESIS SCREENING BI12/16/2024 11:30 AM EST from Last 3 Months or Most Recently Relevant to Health Maintenance Results * MM TOMOSYNTHESIS SCREENING BI (12/16/2024 11:30 AM EST)Anatomical Region LateralityModalityOtherSpecimen (Source)Anatomical Location / Laterality Collection Method / VolumeCollection TimeReceived Time12/16/2024 11:30 AM EST Narrative 12/16/2024 11:31 AM EST [facility] ?[address] ? [place] [address] ? Mammography Report ? Signed ? Patient: HODGES,CATHERINE J ?MR#: [id number] ?? : 1960 ?Acct:[id number] ?? Age/Sex: 64 / F ?ADM Date: 02/13/25 ?? Loc: MAMMO ? Attending Dr: FARNAZ HOFFMANN ? Ordering Physician: SHUN,FARNAZ ?Results: ? Date of Service: 12/15/24 ?Follow Up: ? Procedure(s): MM tomosynthesis screening BI ?? Accession Number(s): [id number] ? cc: SHUN,FARNAZ ? Patient Name: ? CATHERINE HODGES ? MR#: [id number] ? : 1960 ? Exam Date: 12/15/2024 ?? Ordering Doctor: FARNAZ HOFFMANN ? RADIOLOGY REPORT ? PROCEDURE: ? MM TOMOSYNTHESIS SCREENING BI ? COMPARISON: ? MM TOMOSYNTHESIS SCREENING BI, 10/06/2023. ??MG MAMM SCREEN 3D ?? MEKA CAD, 09/24/2022. ??MG MAMM SCREEN 3D MEKA CAD, 04/16/2021. ??MG MAMM MEKA SCRN ?? W CAD DIG, 05/31/2013. ? INDICATIONS: ? Screening ? Calculator Name ? NCI Breast Cancer Risk Assessment Tool ?? 5 Year Breast Cancer Risk ? 1.60% ?? Lifetime Breast Cancer Risk ? 6.10% ?? Personal Breast Cancer ?No ?? Personal Ovarian Cancer ? No ?? Treatments ? None ?? Family Cancers ? Grandmother-paternal with breast cancer at age ??70. ? LOCATION: ? [facility] ? BREAST COMPOSITION: ? There are scattered areas of fibroglandular density. ? FINDINGS: ? DIAGNOSTIC CATEGORY 1--NEGATIVE. ? RIGHT BREAST: ??No significant suspicious finding. ??No significant change has ?? occurred. ? LEFT BREAST: ??No significant suspicious finding. ??No significant change has ?? occurred. ? RECOMMENDATIONS: ? ROUTINE MAMMOGRAM AND CLINICAL EVALUATION IN 12 MONTHS. ? PLEASE NOTE: ??A NORMAL MAMMOGRAM DOES NOT EXCLUDE THE POSSIBILITY OF BREAST ?? CANCER. ??A CLINICALLY SUSPICIOUS PALPABLE LUMP SHOULD BE BIOPSIED. ? Dictated by: Shahid Molina M.D. on 12/16/2024 at 11:28 ? Approved by: Shahid Molina M.D. on 12/16/2024 at 11:30 ? Dictated By: ?Shahid Molina M.D. ? Signed By: ?12/16/241130 ? DD/ 1130 ? TD/TT: ? Shipping And Receiving Associate: Procedure Note Radiology, Radiologist, MD - 12/16/2024 [place] [address] Mammography Report Signed Patient: CATHERINE HODGES JMR#: [id number] : 1960cct:[id number] Age/Sex: 64 / FADM Date: 12/15/24 Loc: MAMMO Attending Dr: FARNAZ HOFFMANN Ordering Physician: Jennifer HOFFMANNults: Date of Service: 12/15/24Follow Up: Procedure(s): MM tomosynthesis screening BI Accession Number(s): [id number] cc: FARNAZ HOFFMANN Patient Name: CATHERINE HODGES MR#: [id number] : 1960 Exam Date: 12/15/2024 Ordering Doctor: FARNAZ HOFFMANN RADIOLOGY REPORT PROCEDURE: MM TOMOSYNTHESIS SCREENING BI COMPARISON: MM TOMOSYNTHESIS SCREENING BI, 10/06/2023. MG MAMM JNOENX9K MEKA CAD, 09/24/2022. MG MAMM SCREEN 3D MEKA CAD, 04/16/2021. MG MAMM BILSCRN W CAD DIG, 05/31/2013. INDICATIONS: Screening Calculator Name NCI Breast Cancer Risk Assessment Tool 5 Year Breast Cancer Risk 1.60% Lifetime Breast Cancer Risk 6.10% Personal Breast Cancer No Personal Ovarian Cancer No Treatments None Family Cancers Grandmother-paternal with breast cancer at age 70. LOCATION: [facility] BREAST COMPOSITION: There are scattered areas of [...] M.D. Signed By:12/16/24 1131 DD/ 1130 TD/TT: Shipping And Receiving Associate: Authorizing ProviderResult TypeResult StatusBrittjudy Hoffmann NPCLINISYNC IMAGINGFinal Result from Last 3 Months or Most Recently Relevant to [place] [address] Care Teams Team MemberRelationshipSpecialtyStart DateEnd Date Nadbaystate noble hospitalr, Zachary, MD [address] [place] [address] PCP - GeneralFamily Medicine07/27/24 Farnaz Hoffmann NP Nurse PractitionerFamily Medicine07/27/24
--- OUTSIDE RECORDS SUMMARY | 2025-09-06 09:21 | XMS_ITS | CCD ---
Author Organization [facility] Care Team Providers Care Sales Review Clerk Name Role Phone FAWWAD, VAIL H Attending [...] Unavailable Zachary Aldana MD Primary Care Provider [phone] Turpin FACE BURLER, Ben Unavailable [phone] Dyana FACE BURLER, Ben Unavailable BEN TURPIN Attending UnavailZACHARY Whitlock Attending Unavailable FABjWAD, VAIL Attending Unavailable LEROY ZACARIAS Attending Unavailable LEROY ZACARIAS Referring Unavailable ZACHARY ALDANA Attending Unavailable Charo Baker MD Primary Care Provider Fortino Walter APRN Attending Provider Ly DOMarlen Attending Provider Ly DOMarlen Other Provider Zahcary Aldana MD Primary Care Provider JOSH REICH Attending Unavailable JOSH REICH Referring Unavailable JOSH REICH Referring Unavailable Marlen Allan Attending Unavailable Marlen Allan Admitting Unavailable Zachary Aldana Primary Care Unavailable Mojgan DO, Maddison Primary Care Provider [phone] Mojgan DO, Maddison Attending Provider [phone] Tavares ARMAS [place] Primary Care Provider Zachary Aldana MD Primary Care Provider Dyana FACE BURLER, Ben Unavailable Charo Baker MD Primary Care Provider Fortino Walter APRN Attending Provider [phone] Allergies Allergy ClassificationReported Allergen(s)Allergy TypeDate of OnsetReaction(s) Facility (20 sources)Cephalexin; Translations: [CEPHALEXIN]Drug Sqacvvm50-00-1676Jhhyo [facility] Healthcare (20 sources)Clindamycin; Translations: [CLINDAMYCIN]Drug Tvasvxj01-59-3628Yydjs [facility] Healthcare Medications Current Medications MedicationDrug Class(es)DatesSig (Normalized)Sig (Original)alendronic acid 70 mg oral tablet (20 sources)BisphosphonateStart: 94-81-1325Qqurlbvkptt Active MG PO December 27, 2023 12:00amStart: 11-18-2023 End: 90-79-0391klcn 1 tablet by mouth every weekAlendronate 70 mg tablet Active 70 MG PO Once a week December 27, 2023 1:00am Complies with drug therapyStart: 11-18-2023 End: 35-88-5343hdsd 1 tablet by mouth in the morningalendronate (Fosamax) 70 MG tablet Indications: Osteopenia after menopause Take 1 tablet (70 mg) bymouth every 7 (seven) days Take in the morning with a full glass of water, on an empty stomach, anddo not take anything else by mouth or lie down for the next 30 min. 12 tablet 1 01/18/2025 07/05/2025 Activeascorbic acid 1000 mg extended release oral tablet (3 sources)Vitamin CStart: 58-81-9321grqs 1 tablet by mouth once dailyAscorbic Acid (Vitamin C) (C Complex) 1,000 mg tablet extended release Active 1000 MG PO Daily 2024 12:00am Complies with drug therapyaspirin 81 mg oral tablet (3 sources)Platelet Aggregation Inhibitor, Nonsteroidal Anti-inflammatory Drug Start: 86-20-4268fcmo 1 tablet by mouth once dailyAspirin 81 mg tablet Active 81 MG PO Daily May 18, 2025 12:00am Complies with drug therapyatorvastatin 10 mg oral tablet (20 sources)HMG-CoA Reductase InhibitorStart: 12-07-2023 End: 85-61-3994ohkt 1 tablet by mouth once dailyAtorvastatin 10 mg tablet Active 10 MG PO Daily December 27, 2023 1:00am Complies with drug therapycalcium carbonate 1500 mg oral tablet (3 sources)Start: 85-02-7022rkbn 1 tablet by mouth once dailyCalcium Carbonate (Calcium 600) 600 mg calcium (1,500 mg) tablet Active 600 MG PO Daily May 18, 2025 12:00am Complies with drug therapycetirizine hydrochloride 10 mg oral tablet (9 sources)Histamine-1 Receptor AntagonistStart: 05-22-2025 End: 32-40-3797ykiv 1 tablet by mouth once daily as neededCetirizine (Zyrtec) 10 mg tablet Active 10 MG PO Daily as needed August 15, 2025 12:00am Complies with drug therapyStart: 11-30-2024 End: 94-51-3907jdds 1 tablet by mouth once dailycetirizine (ZyrTEC) 10 MG tablet Indications: Viral upper respiratory tract infection Take 1 tablet(10 mg) by mouth Daily 30 tablet 2 11/30/2024 02/23/2025 Discontinuedfluticasone propionate 0.05 mg/actuat metered dose nasal spray (7 sources)CorticosteroidStart: 11-30-2024 End: 36-22-6311ilyd 1-2 spray(s) nasal route once dailyfluticasone (Flonase) 50 MCG/ACT nasal spray Indications: Viral upper respiratory tract infection Ad publications editor 1-2 sprays into each nostril Daily Shake gently. Before first use, prime pump. After use, clean tip and replace cap. 16 g 2 05/22/2025 05/22/2026 Activelevothyroxine sodium 0.112 mg oral capsule (20 sources)l-ThyroxineStart: 00-04-8621qadf 1 capsule by mouth once daily Levothyroxine 112 mcg capsule Active 112 MCG PO Daily 90 0 August 21, 2025 12:00am Complies withdrug therapyStart: 12-09-2023 End: 12-72-7324mmyq 1 tablet by mouth once dailyLevothyroxine 100 mcg tablet Discontinued 100 MCG PO Daily December 27, 2023 1:00am August 8:50ammethocarbamol 750 mg oral tablet (14 sources)Muscle RelaxantStart: 55-61-2415Ogscegftnrzkz 750 mg tablet Active 750 MG PO As Directed May 18, 2025 12:00am Complies with drugtherapy nabumetone 500 mg oral tablet (14 sources)Nonsteroidal Anti-inflammatory DrugStart: 02-23-2025 End: 10-30-5822Pnbdjdycgn 500 mg tablet Active 500 MG PO As Directed May 18, 2025 12:00am Complies with drug therapyOmega 7-Gga-Uis-Fish Oil (Fish Oil) 1,000 (120-180) mg capsule (3 sources)Start: 02-39-8660ifub 1 capsule by mouth once dailyOmega 5-Aqx-Grt-Fish Oil (Fish Oil) 1,000 (120-180) mg capsule Active 1 CAP PO Daily May 18, 2025 12:00am Complies with drug therapyomeprazole 40 mg delayed release oral capsule (20 sources)Proton Pump InhibitorStart: 84-80-5613wajp 1 capsule by mouth once dailyOmeprazole 40 mg capsule,delayed release(DR/EC) Active 40 MG PO Daily 30 30 3 August 30, 2025 12:00am Complies with drug therapyStart: 02-23-2025 End: 44-90-4114asit 1 capsule by mouth twice dailyOmeprazole 40 mg capsule,delayed release(DR/EC) Discontinued 40 MG PO Twice daily May 15, 2025 12:00am August 30, 2025 10:22amStart: 05-17-2024 End: 78-64-6236zfhs 1 capsule by mouth in the morningomeprazole (PriLOSEC) [address] capsule Indications: Gastroesophageal reflux disease without esophagitis Take 1 capsule (40 mg) by mouth in the morning and 1 capsule (40 mg) in the evening. Take before meals. 180 capsule 3 02/23/2025 ActiveVit C,G-Se-Jwaqa-Lutein-Zeaxan (Eye Health Areds-2) 250-90-40-1 mg capsule (3 sources)Start: 98-76-1184Kue C,F-Hx-Izwwv-Lutein-Zeaxan (Eye Health Areds-2) 250-90-40-1 mg capsule Active 1 TAB PO Twice daily May 18, 2025 12:00am Complies with drug therapyVitamin K2 45 mcg capsule (3 sources)Start: 82-94-1291thtp 1 capsule by mouth once dailyVitamin K2 45 mcg capsule Active 45 MCG PO Daily May 31, 2025 12:00am Complies with drug therapy Completed/Discontinued Medications MedicationDrug Class(es)DatesSig (Normalized)Sig (Original)[id number] 200 actuat albuterol 0.09 mg/actuat metered dose inhaler (1 source)beta2-Adrenergic AgonistStart: 02-02-2024 End: 33-54-5185dqos 2 puff(s) by inhalation every four hours for wheezing albuterol HFA 90 mcg/act inhaler Indications: Non-recurrent acute suppurative otitis media of both ears without spontaneous rupture of tympanic membranes , Wheezing-associated respiratory infection ,Respiratory illness with fever Inhale 2 puffs every 4 (four) hours if needed for wheezing 18 g 02/02/2024 02/15/2024 Discontinued (Therapy completed)amoxicillin 875 mg / clavulanate 125 mg oral tablet (1 source)Penicillin-class AntibacterialStart: 02-02-2024 End: 97-05-0058upff 1 tablet by mouth in the morningamoxicillin-clavulanate (Augmentin) 875-125 MG tablet Indications: Non-recurrent acute suppurative o titis media of both ears without spontaneous rupture of tympanic membranes , Wheezing-associated respiratory infection , Respiratory illness with fever Take 1 tablet (875 mg) by mouth in the morning and 1 tablet (875 mg) before bedtime. Do all this for 5 days. 10 tablet 02/02/2024 02/07/2024 Expiredbenzonatate 100 mg oral capsule (1 source)Non-narcotic AntitussiveStart: 02-02-2024 End: 72-49-2257nwpu 1 capsule by mouth three times daily as needed for cough benzonatate (Tessalon Perles) 100 MG capsule Indications: Non-recurrent acute suppurative otitis media of both ears without spontaneous rupture of tympanic membranes , Wheezing-associated respiratoryinfection , Respiratory illness with fever Take 1 capsule (100 mg) by mouth 3 (three) times a day as needed for cough for up to 7 days Do not crush or chew. 20 capsule 02/02/2024 02/15/2024 Discontinued (Therapy completed)calcium carbonate 1250 mg / cholecalciferol 0.01 mg oral tablet (5 sources)Vitamin DStart: 12-27-2023 End: 59-76-9311edsl 1 tablet by mouth once dailyCalcium Carbonate-Vitamin D3 (Oyster Shell Calcium-Vit D3) 500 mg-10 mcg (400 unit) tablet Discontinued 1 TAB PO Daily December 27, 2023 1:00am May 18, 2025 9:31amclindamycin 300 mg oral capsule (5 sources)Lincosamide AntibacterialStart: 12-27-2023 End: 56-82-8622zkha 1 capsule by mouth every eight hoursClindamycin Hcl 300 mg capsule Discontinued 300 MG PO Q8H 21 7 0 December 27, 2023 1:00am May 15, 2025 10:23amdesonide 0.5 mg/ml topical cream (6 sources)CorticosteroidStart: 12-27-2023 End: 74-96-7374hobszfpb (DesOwen) 0.05 % cream Apply topically 2 (two) times a day to affected area 12/27/2023 11/30/2024 Discontinued (Med list cleanup) doxycycline hyclate 100 mg oral capsule (1 source)Tetracycline-class DrugStart: 01-26-2024 End: 71-84-1740qaerrhlyikj (Vibramycin) 100 MG capsule Indications: Pneumonia of right lower lobe due to infectious organism Take 1 capsule (100 mg) by mouth in the morning and 1 capsule (100 mg) before bedtime. Doall this for 10 days. Take with at least 8 ounces (large glass) of water, do not lie down for 30 minutes after. 20 capsule 01/26/2024 02/05/2024 ExpiredpredniSONE 20 mg oral tablet (1 source)Start: 02-02-2024 End: 42-31-5583bnlk 2 tablets by mouth once dailypredniSONE (Deltasone) 20 MG tablet Indications: Non-recurrent acute suppurative otitis media of both ears without spontaneous rupture of tympanic membranes , Wheezing-associated respiratory infection , Respiratory illness with fever Take 2 tablets (40 mg) by mouth Daily for 5 days 10 tablet 02/02/2024 02/07/2024 Problems Active Problems Problem ClassificationProblemDateDocumented DateEpisodic/ChronicAbdominal pain (20 sources)Indigestion; Translations: [Epigastric pain]Onset: 01-04-2024 Resolved: 158372-31-1517PcjfzsnjHmzbcnxmy of lipid metabolism (20 sources)Hyperlipidemia, unspecified; Translations: [Hyperlipidemia]Onset: 04-82-3991BsnbnniMbxdjxqraa disorders (20 sources)Gastroesophageal reflux disease; Translations: [Gastro-esophageal reflux disease without esophagitis]Onset: 299557-07-4990XckyubvKnnzxrkmqco chest pain (2 sources)Atypical chest pain; Translations: [Other chest pain]08-17-2025 EpisodicOsteoarthritis (4 sources)Unilateral primary osteoarthritis, left hip; Translations: [UNI PRIM OSTEOARTHRITIS LT HIP]Onset: 75-56-3781TpsbxlxUpwsnljnmelx (7 sources)Osteoporosis; Translations: [Age-related osteoporosis without current pathological fracture]Onset: 334975-44-7486QsgwhelXfppd bone disease and musculoskeletal deformities (18 sources)Osteopenia; Translations: [Other specified disorders of bone density and structure, left thigh]Onset: 546248-31-1237BtkfsebuMeoza circulatory disease (16 sources)Feeling of lump in throat; Translations: [Globus sensation]Onset: 480621-25-7950JyyjrjkdEahyy lower respiratory disease (1 source)Other nonspecific abnormal finding of lung field; Translations: [OTH NONSPECIFIC ABN FIND LNG FIELD]Onset: 21-96-8259EygvzcdpGmyxj nervous system disorders (5 sources)Chronic low back pain; Translations: [Other chronic pain]Onset: 258277-70-0024NcefxwjOiokc nervous system disorders (4 sources)Paresthesia of right upper limb; Translations: [Paresthesia of skin] 48-55-2777VbrtpwqfSdvtr non-traumatic joint disorders (2 sources)Pain in left knee; Translations: [Pain in joint, lower leg]04-25-2025 EpisodicOther nutritional; endocrine; and metabolic disorders (16 sources)Severe obesity; Translations: [Class 2 severe obesity due to excess calories with serious comorbidity and body mass index (BMI) of 36.0 to 36.9 in adult ([facility])]Onset: 808550-14-8219EfczrccEivhv screening for suspected conditions (not mental disorders or infectious disease) (9 sources)Encounter for screening mammogram for malignant neoplasm of breast; Translations: [Patient encounter status]Onset: 84-61-0441UhexzqdgPtgazupq codes; unclassified (1 source)Family history of malignant neoplasm of breast; Translations: [FAMILY HX MALIG NEOPLASM OF BREAST]Onset: 03-35-8045SxhwegcnReulmffsi and history of mental health and substance abuse codes (20 sources)Ex-smoker; Translations: [Personal history of nicotine dependence] Onset: 851082-98-7683NwvtfasmVcnukwwpoar; intervertebral disc disorders; other back problems (20 sources)Degeneration of lumbar intervertebral disc; Translations: [Degeneration of intervertebral disc of lumbar region with discogenic back pain] Onset: 319188-38-3173QqfiszwZcquxpk and strains (2 sources)Strain of calf muscle; Translations: [Strain of other muscle(s) and tendon(s) at lower leg level, left leg, initial encounter]65-67-9055Yyhacizv Thyroid disorders (20 sources)Hypothyroidism, unspecified; Translations: [Hypothyroidism]Onset: 39-92-5426Caiiiwy Past or Other Problems Problem ClassificationProblemDateDocumented DateEpisodic/ChronicBiliary tract disease (20 sources)Cholelithiasis without obstruction; Translations: [Calculus of gallbladder without cholecystitis without obstruction]Onset: 01-04-2024 76-53-6570AhqddwlnCtnyg bone disease and musculoskeletal deformities (20 sources)Postmenopausal osteopenia; Translations: [Other specified disorders of bone density and structure, unspecified site]Onset: 11-18-2023 Resolved: 169197-11-1987EsbpmkekRhain lower respiratory disease (20 sources)Multiple nodules of lung; Translations: [Other nonspecific abnormal finding of lung field]Onset: 929288-78-2670UhsdkukdWuldv lower respiratory disease (20 sources)Respiratory tract infection; Translations: [Other specified respiratory disorders]Onset: 02-03-2024 Resolved: 711648-45-9388EfibbhenJfeju lower respiratory disease (20 sources)Disorder of respiratory system; Translations: [Respiratory disorder, unspecified]Onset: 02-03-2024 Resolved: 527824-41-9024HqjdbjceJdmja nervous system disorders (4 sources)Anesthesia of skin; Translations: [ANESTHESIA OF SKIN]Onset: 82-69-6190KjgiznwePwfxg non-traumatic joint disorders (1 source)Pain in left hip; Translations: [PAIN IN LEFT HIP]Onset: 05-16-2022 EpisodicOther upper respiratory infections (20 sources)Viral upper respiratory tract infection; Translations: [Acute upper respiratory infection, unspecified]Onset: 11-30-2024 Resolved: 598977-20-9173SxykckvmBacevi media and related conditions (20 sources)Acute suppurative otitis media without spontaneous rupture of ear drum; Translations: [Acute suppurative otitis media without spontaneous rupture of ear drum, bilateral]Onset: 02-03-2024 Resolved: 853362-16-3845BibgvzxrNgcf and subcutaneous tissue infections (20 sources)Cellulitis of face; Translations: [Cellulitis of face]Onset: 01-04-2024 Resolved: 515841-00-8913Huqzbkih Results Test NameValueInterpretationReference RangeFacilityBasophils Auto (Bld) [#/Vol] Ordered By: Maddison Ulrich on 40-70-8054Ingpnrfip (Bld) [#/Vol]0.0 10 3/uL0.0-0.1 [facility] HospitalBasophils/100 WBC Auto (Bld)Ordered By: Maddison Ulrich on 19-81-3949Pwbsbiceg/100 WBC (Bld)0.5 %0.2-2.0[facility] HospitalCholesterol in LDL Calc [Mass/Vol]Ordered By: MADDISON ULRICH on 08-17-2025 Cholesterol in LDL [Mass/Vol]118.2 mg/dLThe Jewish HospitalComment on above:<100 mg/dl XWHINTK073-632 mg/dl NEAR OR ABOVE UYNYFNK828-852 mg/dl BORDERLINE HVXB289-467 mg/dl HIGH>190 mg/dl VERY HIGHCholesterol in VLDL Calc [Mass/Vol]Ordered By: MADDISON ULRICH on 86-49-2761Icxtogltzhr in VLDL [Mass/Vol] 20.8 mg/dLThe Jewish HospitalEosinophils/100 WBC Auto (Bld)Ordered By: Maddison Ulrich on 37-60-5341Iqltbrswbqt/100 WBC (Bld)2.7 %0.9-7.0[facility] HospitalErythrocyte distribution width Auto (RBC) [Ratio]Ordered By: Maddison Ulrich on 05-66-7087Udnschyvdst distribution width (RBC) [Ratio]14.6 % 11.0-15.0[facility] HospitalGlobulin Calc (S) [Mass/Vol]Ordered By: MADDISON ULRICH on 53-43-0107Pkviquxo (S) [Mass/Vol]4.2 g/dLThe Jewish HospitalGlomerular filtration rate (GFR) estimation in non- AmericanOrdered By: MADDISON ULRICH on 94-06-0565MDG/1.73 sq M.predicted among non- blacks MDRD (S/P/Bld) [Vol rate/Area]mL/min/{1.73_m2}>=60 mL/min/1.73m 2 [facility] CenterHematocrit Auto (Bld) [Volume fraction]Ordered By: Maddison Mojgan on 38-59-8534Eivnhysgmt (Bld) [Volume fraction]35.9 %Low 36.0-48.0[facility] HospitalHemoglobin [Mass/volume] in Blood Ordered By: Maddisondada Ulrich on 79-72-5270Nqkcxteair (Bld) [Mass/Vol]11.8 g/dLLow 12.0-16.0[facility] HospitalLaboratory - Chemistry and Chemistry - challengeOrdered By: MADDISONDADA ULRICH on 32-92-6735Gfdnolk [Mass/Vol]3.6 g/dL 3.4-5.0[facility] HospitalALP [Catalytic activity/Vol]52 U/L46-116 [facility] HospitalALT [Catalytic activity/Vol]17 U/L14-59 [facility] HospitalAST [Catalytic activity/Vol]20 U/L15-37 [facility] HospitalBilirubin [Mass/Vol]0.4 mg/dL0.2-1.0[facility] HospitalCalcium [Mass/Vol]8.9 mg/dL8.5-10.1FRegency Hospital CompanyChloride [Moles/Vol]104 mmol/H06-709OtgnuhyuyThe Jewish HospitalCholesterol [Mass/Vol]183 mg/dL<=200[facility] Cholesterol in HDL [Mass/Vol]44 mg/vV09-09GnzpnpdgaThe Jewish Hospital Comment on above:> or =60 mg/dl - LOW CARDIOVASCULAR RISK<40 mg/dl - HIGH CARDIOVASCULAR RISKCO2 [Moles/Vol]31.2 mmol/L21.0-32.0[facility] HospitalCreatinine [Mass/Vol]0.72 mg/dL0.55-1.02[facility] GFR/1.73 sq M.predicted MDRD (S/P/Bld) [Vol rate/Area]mL/min/{1.73_m2}>=60 mL/min/1.73m 2FRegency Hospital CompanyGlucose [Mass/Vol]85 mg/uM39-447 [facility] HospitalPotassium [Moles/Vol]3.6 mmol/L3.5-5.1FRegency Hospital CompanyProtein [Mass/Vol]7.8 g/dL6.4-8.2FMartin Memorial Hospitalodium [Moles/Vol]143 mmol/H477-187JgcnbkqkxThe Jewish HospitalTriglyceride [Mass/Vol]104 mg/dL<=150The [facility] HospitalUrea nitrogen [Mass/Vol]15.0 mg/dL7.0-18.0[facility] HospitalUrea nitrogen/Creatinine [Mass ratio]20.8 mg/mgThe [facility] Hospital Laboratory - Chemistry and Chemistry - challengeOrdered By: Maddison Ulrich on 29-08-2779Ufha T4 [Mass/Vol]1.05 ng/dL0.76-1.46[facility] TSH Qn4.025 m[IU]/LHigh0.358-3.740The [facility] HospitalLaboratory - Hematology and Cell countsOrdered By: Maddison Ulrich on 14-52-9706Gkfevvgn granulocytes/100 WBC (Bld)0.2 %0.0-0.5FRegency Hospital Company Leukocytes [#/volume] corrected for nucleated erythrocytes in Blood by Automated counOrdered By: Maddison Ulrich on 21-28-6767XLM corrected for nucl RBC Auto (Bld) [#/Vol]6.4 10 3/uL4.0-11.0[facility] HospitalLymphocytes Auto (Bld) [#/Vol]Ordered By: Maddison Ulrich on 20-54-1010Mhdorvdqpjv (Bld) [#/Vol]1.5 10 3/uL1.2-3.8[facility] HospitalLymphocytes/100 WBC Auto (Bld) Ordered By: Maddison Ulrich on 34-66-9304Scyarcnlzjc/100 WBC (Bld)22.7 %20.5-60.0 [facility] Auto (RBC) [Entitic mass]Ordered By: Maddison Ulrich on 29-88-5676OUG (RBC) [Entitic mass]28.6 pg26.7-34.0The [facility] HospitalMC Auto (RBC) [Mass/Vol]Ordered By: Maddison Ulrich on 57-43-9464LYVX (RBC) [Mass/Vol]32.9 g/dL29.9-35.2FRegency Hospital CompanyMCV Auto (RBC) [Entitic vol]Ordered By: Maddison Ulrich on 88-04-3424WWQ (RBC) [Entitic vol]86.9 fL81.0-99.0[facility] HospitalMonocytes Auto (Bld) [#/Vol]Ordered By: Maddison Ulrich on 41-58-5006Chhgitgyn (Bld) [#/Vol] 0.3 10 3/uL0.3-0.8[facility] HospitalMonocytes/100 WBC Auto (Bld) Ordered By: Maddison Ulrich on 39-44-8267Vhtueepao/100 WBC (Bld)4.9 %1.7-12.0 [facility] HospitalNeutrophils Auto (Bld) [#/Vol]Ordered By: Maddison Ulrich on 46-00-8417Gwbqucvsila (Bld) [#/Vol]4.4 10 3/uL1.4-6.5FRegency Hospital CompanyNeutrophils/100 WBC Auto (Bld)Ordered By: Maddison Ulrich on 59-08-3361Iuccxhwhjkf/100 WBC (Bld)69.0 %43.0-75.0[facility] HospitalNo Panel InformationOrdered By: Maddison Ulrich on 86-50-9880Burlejcmkbt # (Auto)0.2 10 3/uL0.0-0.7FRegency Hospital CompanyImmature Granulocyte # (Auto)0.01 10 3/uL0.00-0.03The [facility] HospitalPlatelet mean volume Auto (Bld) [Entitic vol]Ordered By: Maddison Ulrich on 75-69-0311Syoyoasm mean volume (Bld) [Entitic vol]9.4 fLLow9.5-13.5FRegency Hospital Company Platelets Auto (Bld) [#/Vol]Ordered By: Maddison Ulrich on 13-92-5787Zafnrodwq (Bld) [#/Vol]173 10 3/rX305-628TnlcssaepThe Jewish HospitalRBC Auto (Bld) [#/Vol]Ordered By: Maddison Mojgan on 19-80-1441CQV (Bld) [#/Vol]4.13 10 6/uLLow 4.20-5.40[facility] Health Akron Campuserum or plasma albumin/globulin mass ratioOrdered By: MADDISON MOJGAN on 32-24-7514Yiyvtsq/Globulin [Mass ratio]0.9 {ratio}[facility] Akron Campuserum or plasma anion gap determination Ordered By: MADDISONDADA ULRICH on 19-01-7136Thdxa gap [Moles/Vol]11.4 mmol/LFMartin Memorial Hospitalerum or plasma total cholesterol/high density lipoprotein (HDL) cholesterol mass ratOrdered By: MADDISON MOJGAN on 08-17-2025 Cholesterol.total/Cholesterol in HDL [Mass ratio]4.2 {ratio}[facility] HospitalComment on above:3.3 - 4.4 LOW RISK4.4 - 7.1 AVERAGE RISK7.1 - 11.0 MODERATE RISK>11.0 HIGH RISKOffice Visiton 52-38-8627Joshxi-up visit [id number] Juni Hodges 1960 F Date Provider Department Center 06/21/2025 JOSH IBARRA ONC DCC Family History Problem Relation Age of Onset Diabetes Mother Clotting disorder Father's Sister Family Status - Relation Status Age at Mother Alive Father's Sister Alive Level of Service:19714 [place] OFFICE/OUTPATIENT NEW LOW MDM 30 MINUTESNormal [facility] HospitalPathology Request for Lab Corpon 05-31-2025 Pathology Request for Lab CorpGainesville [facility] Physician GroupComment on above:Order Comment: GI SPECIMENResult Comment: See report. Scanned copy available in EMR. PERFORMED BY: [place] [address] PATHOLOGIST NETWORK OPERATIONS TECHNICIAN FAUSTINO JEFFERS M.D.Performed By: #### PATH TO [facility] #### [address] [address] [facility] LUMBAR SPINE WO CONon [id number], [place] [address] Magnetic Resonance Report Signed Patient: JUNI HODGES MR#: [id number] : 1960 Acct:[id number] Age/Sex: 64 / F ADM Date: 05/18/25 Loc: MRI Attending Dr: Zachary Aldana M.D. Ordering Physician: Zachary Aldana M.D. Date of Service: 05/18/25 Procedure(s): MR lumbar spine wo con Accession Number(s): [id number] cc: Zachary Aldana M.D. [place] [address] Patient Name: JUNI HODGES MRN: [id number] date: 1960 Sex: F Assigned Patient Location: MRI Current Patient Location: Accession/Order Number: [id number] Exam Date: 05/19/2025 00:04 Report Date: 05/19/2025 [...] Tobin M.D. 05/19/2025 12:08 AM Dictation Location: [place] [address] Electronically authenticated by: [id number] Y Date: 05/19/2025 00:08 Dictated By: Caleb Tobin M.D. Signed By: 05/19/25 0011 DD/ 0008 TD/TT: Fiction And Nonfiction Author:TBHRadiology, Radiologist, - 05/19/2025 [place] [address] Magnetic Resonance Report Signed Patient: JUNI HODGES MR#: [id number] : 1960 Acct:[id number] Age/Sex: 64 / F ADM Date: 05/18/25 Loc: MRI Attending Dr: Zachary Aldana M.D. Ordering Physician: Zachary Aldana M.D. Date of Service: 05/18/25 Procedure(s): MR lumbar spine wo con Accession Number(s): [id number] cc: Zachary Aldana M.D. [place] [address] Patient Name: JUNI HODGES MRN: [id number] date: 1960 Sex: F Assigned Patient Location: MRI Current Patient Location: Accession/Order Number: [id number] Exam Date: 05/19/2025 00:04 Report Date: 05/19/2025 [...] Tobin M.D. 05/19/2025 12:08 AM Dictation Location: [place] [address] Electronically authenticated by: [id number] Y Date: 05/19/2025 00:08 Dictated By: Caleb Tobin M.D. Signed By: 05/19/25 0011 DD/ 0008 TD/TT: Fiction And Nonfiction Author: [facility] HOSPITALSteven [facility], BeachwoodRadiology Study observation (narrative)[facility] LUMBAR SPINE WO CONOrdered By: Radiologist Radiology on 63-80-3835BOVUSaint Mary's Health Center Work Phone: US.doppler Lower extremity vein - lefton 04-26-2025 EXAM: VAS US LOWER EXTREMITY VENOUS DUPLEX LEFT HISTORY: [...] DVT. Interpreted by: Electronically signed by TANNER MEJIA II, MD, PHD at 26-Apr-2025 07:44:18 AM [facility] CenterTanner leija MD - 04/26/2025 EXAM: VAS US LOWER EXTREMITY VENOUS DUPLEX LEFT HISTORY: [...] DVT. Interpreted by: Electronically signed by TANNER MEJIA II, MD, PHD at 26-Apr-2025 07:44:18 AM [facility] FoodyradMil[facility] [place][note 2].doppler Lower extremity vein - leftOrdered By: Tanner Mejia on 09-93-3907QJOKSaint Mary's Health Center Work Phone: US.doppler Lower extremity vein - lefton 04-25-2025 Radiology Study observation (narrative)[facility] US LOWER EXTREMITY VENOUS DUPLEX LEFTon 29-20-1945UNLJ US LOWER EXTREMITY VENOUS DUPLEX LEFTEXAM: [facility] US LOWER EXTREMITY VENOUS DUPLEX LEFT HISTORY: [...] DVT. Interpreted by: Electronically signed by TANNER MEJIA II, MD, PHD at 26-Apr-2025 07:44:18 AM [facility] TeleradiologyNormalNot AvailableXR LUMBAR SPINE 2 OR 3Von 05-55-[place]691[place]wp[place], [place] [address] XRay Report Signed Patient: JUNI HODGES MR#: [id number] : 1960 Acct:[id number] Age/Sex: 64 / F ADM Date: 02/23/25 Loc: [facility] Attending Dr: Zachary Aldana M.D. Ordering Physician: Zachary Aldana M.D. Date of Service: 02/23/25 Procedure(s): XR lumbar spine 2-3V Accession Number(s): [id number] cc: Zachary Aldana M.D. [place] [address] Patient Name: JUNI HODGES MRN: [id number] date: 1960 Sex: F Assigned Patient Location: [facility] Current Patient Location: [facility] Accession/Order Number: [id number] Exam Date: 02/23/2025 13:52 Report Date: 02/23/2025 [...] LOSS. Impression dictated by: Cesar Rose Jr., D.OAdi02/23/2025 1:52 PM Dictation Location: [place] [address] Electronically authenticated by: [id number] Y Date: 02/23/2025 13:52 Dictated By: Cesar Rose M.D. Signed By: 02/23/25 135 DD/ 135 TD/TT: Fiction And Nonfiction Author:NASEEMHRadiology, Radiologist, - 02/23/2025 [place] [address] XRay Report Signed Patient: JUNI HODGES MR#: [id number] : 1960 Acct:[id number] Age/Sex: 64 / F ADM Date: 02/23/25 Loc: [facility] Attending Dr: Zachary Aldana M.D. Ordering Physician: Zachary Aldana M.D. Date of Service: 02/23/25 Procedure(s): XR lumbar spine 2-3V Accession Number(s): [id number] cc: Zachary Aldana M.D. [place] [address] Patient Name: JUNI HODGES MRN: [id number] date: 1960 Sex: F Assigned Patient Location: [facility] Current Patient Location: [facility] Accession/Order Number: [id number] Exam Date: 02/23/2025 13:52 Report Date: 02/23/2025 [...] Rose Jr., D.O.02/23/2025 1:52 PM Dictation Location: [place] [address] Electronically authenticated by: [id number] Y Date: 02/23/2025 13:52 Dictated By: Cesar Rose M.D. Signed By: 02/23/251354 DD/ 51 TD/TT: Fiction And Nonfiction Author: ROJAS HealthcareRadiology Study observation (narrative)[facility] HealthcareXR LUMBAR SPINE 2 OR 3VOrdered By: Radiologist Radiology on 13-55-3316OTRX [employer] Work Phone: MM TOMOSYNTHESIS SCREENING BIon 19-13-2454Qrm [address] [address] Mammography Report Signed Patient: JUNI HODGES MR#: [id number] : 1960 Acct:[id number] Age/Sex: 64 / F ADM Date: 12/15/24 Loc: [facility] Attending Dr: BEN TURPIN Ordering Physician: BEN TURPIN Results: Date of Service: 12/15/24 Follow Up: Procedure(s): MM tomosynthesis screening BI Accession Number(s): [id number] cc: BEN TURPIN Patient Name: JUNI HODGES MR#: [id number] : 1960 Exam Date: 12/15/2024 Ordering Doctor: [...] breast cancer at age 69. LOCATION: [facility] BREAST COMPOSITION: There are scattered areas of [...] LUMP SHOULD BE BIOPSIED. Dictated by: Celine Saxena M.D. on 12/16/2024 at 11:28 Approved by: Celine Saxena M.D. on 12/16/2024 at 11:30 Dictated By: Celine Saxena M.D. Signed By: 12/16/24 1131 DD/ 1130 TD/TT: Fiction And Nonfiction Author:TBHRadiology, Radiologist, MD - 12/16/2024 [place] [address] Mammography Report Signed Patient: JUNI HODGES MR#: [id number] : 1960 Acct:[id number] Age/Sex: 64 / F ADM Date: 12/15/24 Loc: [facility] Attending Dr: BEN TURPIN Ordering Physician: BEN TURPIN Results: Date of Service: 12/15/24 Follow Up: Procedure(s): MM tomosynthesis screening BI Accession Number(s): [id number] cc: BEN TURPIN Patient Name: JUNI HODGES MR#: [id number] : 1960 Exam Date: 12/15/2024 Ordering Doctor: [...] breast cancer at age 69. LOCATION: [facility] BREAST COMPOSITION: There are scattered areas of [...] LUMP SHOULD BE BIOPSIED. Dictated by: Celine Saxena M.D. on 12/16/2024 at 11:28 Approved by: Celine Saxena M.D. on 12/16/2024 at 11:30 Dictated By: Celine Saxena M.D. Signed By: 12/16/24 1131 DD/ 113 TD/TT: Fiction And Nonfiction Author: ROJAS [facility] BeachwoodRadiology Study observation (narrative)[facility] TOMOSYNTHESIS SCREENING BIOrdered By: Radiologist Radiology on 42-21-2770VNAY [employer] Work Phone: ct CHEST WO CONon 29-13-0165Lkj[place], [place] [address] CT Scan Report Signed Patient: JUNI HODGES MR#: [id number] : 1960 Acct:[id number] Age/Sex: 63 / F ADM Date: 05/24/24 Loc: CT Attending Dr: Shaikh Tavares Oliver Ordering Physician: Shaikh Benito Chapin Date of Service: 05/24/24 Procedure(s): CT chest wo con Accession Number(s): [id number] cc: Shaikh Benito Chapin [place] [id number] Patient Name: JUNI HODGES MRN: [id number] date: 1960 Sex: F Assigned Patient Location: CT Current Patient Location: Accession/Order Number: [id number] Exam Date: 05/24/2024 09:00 Report Date: 05/25/2024 [...] risk for lung cancer. Electronically authenticated by: CELINE SAXENA Date: 05/25/2024 05:43 Dictated By: Celine Saxena M.D. Signed By: 05/25/2447 DD/ TD/TT: Fiction And Nonfiction Author:TBHRadiology, Radiologist, MD - 05/25/2024 [place] [address] CT Scan Report Signed Patient: JUNI HODGES MR#: [id number] : 1960 Acct:[id number] Age/Sex: 63 / F ADM Date: 05/24/24 Loc: CT Attending Dr: Shaikh Tavares Oliver Ordering Physician: Shaikh Benito Chapin Date of Service: 05/24/24 Procedure(s): CT chest wo con Accession Number(s): [id number] cc: Shaikh Benito Chapin The [address] [address] Patient Name: JUNI HODGES MRN: [id number] date: 1960 Sex: F Assigned Patient Location: CT Current Patient Location: Accession/Order Number: [id number] Exam Date: 05/24/2024 09:00 Report Date: 05/25/2024 [...] risk for lung cancer. Electronically authenticated by: CELINE SAXENA Date: 05/25/2024 05:43 Dictated By: Celine Saxena M.D. Signed By: 05/25/24 0547 DD/ 0543 TD/TT: Fiction And Nonfiction Author: [facility] HealthcareRadiology Study observation (narrative)[facility] HealthcareCT CHEST WO CONOrdered By: Radiologist Radiology on 96-47-4193HQCE [employer] Work Phone: xr DEXA AXIAL SKELETONon 79-42-1640UhzSolon, [place] [address] XRay Report Signed Patient: JUNI HODGES MR#: [id number] : 1960 Acct:[id number] Age/Sex: 63 / F ADM Date: 05/24/24 Loc: CT Attending Dr: Shaikh Tavares Oliver Ordering Physician: Shaikh Benito Chapin Date of Service: 05/24/24 Procedure(s): XR DEXA axial skeleton Accession Number(s): [id number] cc: Shaikh Benito Chapin [place] [id number] Patient Name: JUNI HODGES MRN: [id number] date: 1960 Sex: F Assigned Patient Location: CT Current Patient Location: CT Accession/Order Number: [id number] Exam Date: 05/24/2024 09:10 Report Date: 05/24/2024 [...] prevention and treatment of osteoporosis. Osteoporos Int. 2021;3310):1404-3545. doi: 10.1007/l60010-224-19649-l. Epub 2021Feb 27. Erratum in: Osteoporos Int. 2021May 29;: PMID: 07484450; PMCID: [id number]. Electronically authenticated by: CELINE SAXENA Date: 05/24/2024 10:18 Dictated By: Celine Saxena M.D. Signed By: 05/24/24 1020 DD/ 1018 TD/TT: Fiction And Nonfiction Author:TBHRadiology, Radiologist, - 05/24/2024 [place] [address] XRay Report Signed Patient: JUNI HODGES MR#: [id number] : 1960 Acct:[id number] Age/Sex: 63 / F ADM Date: 05/24/24 Loc: CT Attending Dr: Shaikh Tavares Oliver Ordering Physician: Shaikh Benito Chapin Date of Service: 05/24/24 Procedure(s): XR DEXA axial skeleton Accession Number(s): [id number] cc: Shaikh Benito Chapin [place] [id number] Patient Name: JUNI HODGES MRN: [id number] date: 1960 Sex: F Assigned Patient Location: CT Current Patient Location: CT Accession/Order Number: [id number] Exam Date: 05/24/2024 09:10 Report Date: 05/24/2024 10:18 At the request of: SHAIKH ODALISGeorge Procedure: XR DEXA axial skeleton EXAMINATION: XR [...] BMD [12, 13]. Haylee MS, Chris SL, Anvial KL, Deven SAENZ, Balwinder KG, AJ, Justo ES. The clinician's guide to prevention and treatment of osteoporosis. Osteoporos Int. 2021;33(10):5770-0148. doi: 10.1007/p06203-957-75242-q. Epub 2021Feb 27. Erratum in: Osteoporos Int. 2021May 29;: PMID: 09504260; PMCID: ERS3698867. Electronically authenticated by: CELINE SAXENA Date: 05/24/2024 10:18 Dictated By: Celine Saxena M.D. Signed By: 05/24/24 1020 DD/ 1018 TD/TT: Fiction And Nonfiction Author: ROJAS HealthcareRadiology Study observation (narrative)[facility] HealthcareXR DEXA AXIAL SKELETONOrdered By: Radiologist Radiology on 86-16-9199[facility] Work Phone: XR CHEST 2Von 71-83-0075Byq[place]on, [place] [address] XRay Report Signed Patient: JUNI HODGES MR#: [id number] : 1960 Acct:[id number] Age/Sex: 63 / F ADM Date: 02/02/24 Loc: [facility] Attending Dr: Shaikh Tavares Oliver Ordering Physician: Shaikh Benito Chapin Date of Service: 02/02/24 Procedure(s): XR chest 2V Accession Number(s): [id number] cc: Shaikh Benito Chapin [place] [address] Patient Name: JUNI HODGES MRN: [id number] date: 1960 Sex: F Assigned Patient Location: RAD Current Patient Location: RAD Accession/Order Number: [id number] Exam Date: 02/02/2024 12:22 Report Date: 02/02/2024 [...] OTONIEL DOMINGUEZ Date: 02/02/2024 13:08 Dictated By: Otonile Dominguez M.D. Signed By: 02/02/24 1310 DD/ 1308 TD/TT: Fiction And Nonfiction Author:TBHRadiology, Radiologist, - 02/02/2024 [place] [address] XRay Report Signed Patient: JUNI HODGSE MR#: [id number] : 1960 Acct:[id number] Age/Sex: 63 / F ADM Date: 02/02/24 Loc: [facility] Attending Dr: Shaikh Tavares Oliver Ordering Physician: Shaikh Benito Chapin Date of Service: 02/02/24 Procedure(s): XR chest 2V Accession Number(s): [id number] cc: Shaikh Benito Chapin [place] [address] Patient Name: JUNI HODGES MRN: [id number] date: 1960 Sex: F Assigned Patient Location: [facility] Current Patient Location: RAD Accession/Order Number: [id number] Exam Date: 02/02/2024 12:22 Report Date: 02/02/2024 [...] Signed By: 02/02/24 1310 DD/ 1308 TD/TT: Fiction And Nonfiction Author: [facility] CenterRadiology Study observation (narrative)[facility] CenterXR CHEST 2V Ordered By: Radiologist Radiology on 51-00-7568FPCQ [employer] Work Phone: cT CHEST WO CONon 90-42-2230HK CHEST WO CON EXAMINATION: CT CHEST WO CON HISTORY: Lung field abnormal ; [...] stability. 2. Cholelithiasis. Electronically authenticated by: CELINE SAXENA Date: 2022-12-16 14:13[facility]riners HospitalDAT - VITAMIN Don 30-16-6477TXV D 25-OH28.8 ng/mLNormalDayton Va Medical CenterComment on above:Performed By: #### DATVITD #### [facility] [address] [place] [address] Dr. Emmanuel Vazquez RANGESSEE BELOWCincinnati Shriners HospitalComment on above: Result Comment: <20 ng/mL Vit D deficient 20 - <30 ng/mL Vit D insufficient 30 - 100 ng/mL Vit D sufficient >100 ng/mL Potential ToxicityPerformed By: #### DATVITD #### [facility] [address] [place] [address] Dr. Emmanuel HillmanGLYCOHEMOGLOBIN A1Con 94-81-1846WJY RECOMMENDATIONSEE [facility] HospitalComhawthorn center on above:Result Comment: ADA RECOMMENDED LIMIT 4.0 - 6.0 ADA THERAPEUTIC TARGET < 7.0 ACTION SUGGESTED > 7.0Performed By: #### DATA1C #### [facility] [address] [place] [address] Dr. Emmanuel HillmanGlucose [Mass/Vol]108 mg/dLCincinnati Shriners HospitalComhawthorn center on above:Performed By: #### DATA1C #### [facility] [address] [place] [address] Dr. Emmanuel HillmanHbA1c (Bld) [Mass fraction]5.4 %Normal4.5-6.2Dayton Va Medical CenterComment on above:Performed By: #### DATA1C #### [facility] [address] [place] [address] Dr. Emmanuel HillmanLIPID PROFILEon 87-76-8477FIIN-HDL RATIO NORMSEE Kindred HealthcareComhawthorn center on above:Result Comment: 3.3 - 4.4 LOW RISK 4.4 - 7.1 AVERAGE RISK 7.1 - 11.0 MODERATE RISK >11.0 HIGH RISKPerformed By: #### LIPID, TSH, LIVER #### [facility] [address] [place] [address] [address] Emmanuel HillmanCholesterol [Mass/Vol]148 mg/dLNormal<=200The [facility] Comment on above:Performed By: #### LIPID, TSH, LIVER #### [facility] [address] [place] [address] [address] Emmanuel HillmanCholesterol in HDL [Mass/Vol]44 mg/lHOpvxrb26-41Src [facility] CampusComment on above:Performed By: #### LIPID, TSH, LIVER #### [facility] [address] [place] [address] [address] Emmanuel HillmanCholesterol in LDL [Mass/Vol]79.0 mg/dLNoAultman HospitalComment on above:Performed By: #### LIPID, TSH, LIVER #### [facility] [address] [place] [address] [address] Emmanuel De La Cruzestersusie.total/Cholesterol in HDL [Mass ratio]3.4 {ratio} NormalThe [facility] CampusComment on above:Performed By: #### LIPID, TSH, LIVER #### [facility] [address] [place] [address] [address] Emmanuel Aviles NORMAL> or = 60 mg/dl - LOW CARDIOVASCULAR RISK <40 mg/dl - HIGH CARDIOVASCULAR RISKCincinnati Shriners HospitalComment on above:Performed By: #### LIPID, TSH, LIVER #### [facility] [address] [place] [address] [address] Emmanuel HillmanLDL CALC NORMALSEE BELOWNoAultman HospitalComment on above:Result Comment: <100 mg/dl OPTIMAL 100 - 129 mg/dl NEAR OR ABOVE OPTIMAL 130 - 159 mg/dl BORDERLINE HIGH 160 - 189 mg/dl HIGH >190 mg/dl VERY HIGH Performed By: #### LIPID, TSH, LIVER #### [facility] [address] [place] [address] [address] Emmanuel HillmanTriglyceride [Mass/Vol]125 mg/dLNormal<=150The [facility] Comment on above:Performed By: #### LIPID, TSH, LIVER #### [facility] [address] [place] [address] [address] Emmanuel GarciaLDL CALC25.0 mg/dLNormalThe [facility] on above: Performed By: #### LIPID, TSH, LIVER #### [facility] [address] [place] [address] Dr. Emmanuel Murrell PROFILEon 21-01-2111Eiakfef [Mass/Vol]3.7 g/dLNormal3.4-5.0 The [facility] CampusComment on above:Performed By: #### LIPID, TSH, LIVER #### [facility] [address] [place] [address] Dr. Emmanuel HillmanAlbumin/Globulin [Mass ratio]0.9 {ratio}NormalThe [facility] on above:Performed By: #### LIPID, TSH, LIVER #### [facility] [address] [place] [address] Dr. Emmanuel Anderson [Catalytic activity/Vol]69 U/ZDnxucm01-020Imz [facility] CampusComment on above:Performed By: #### LIPID, TSH, LIVER #### [facility] [address] [place] [address] Dr. Emmanuel Beatty [Catalytic activity/Vol]34 U/LZkdjwx55-30Ikh [facility] on above:Performed By: #### LIPID, TSH, LIVER #### [facility] [address] [place] [address] Dr. Emmanuel Dawn [Catalytic activity/Vol]17 U/SYcglmr30-10Pmc [facility] on above:Performed By: #### LIPID, TSH, LIVER #### [facility] [address] [place] [address] Dr. Emmanuel Bey, CONJUGATED0.1 mg/dLNormal0.0-0.2The [facility] Comment on above:Performed By: #### LIPID, TSH, LIVER #### [facility] [address] [place] [address] Dr. Emmanuel Krishnanirubin [Mass/Vol]0.4 mg/dLNormal0.2-1.0The [facility] Comment on above:Performed By: #### LIPID, TSH, LIVER #### [facility] [address] [place], [place] [address] Dr. Emmanuel HillmanGlobulin (S) [Mass/Vol]4.3 g/dLNormalThe [facility] CampusComment on above:Performed By: #### LIPID, TSH, LIVER #### [facility] [address] [place], [place] [address] Dr. Emmanuel HillmanProtein [Mass/Vol]8.0 g/dLNormal6.4-8.2The [facility] Comment on above:Performed By: #### LIPID, TSH, LIVER #### [facility] [address] [place], [place] [address] Dr. Emmanuel Gunn 72-68-7133HKZ1.447 uIU/mLCritically high0.358-3.740Dayton Va Medical CenterComment on above:Performed By: #### LIPID, TSH, LIVER #### [facility] [address] [place], [place] [address] Dr. Emmanuel HillmanMG MAMM SCREEN 3D MEKA CADon 26-82-1139YV MAMM SCREEN 3D MEKA CAD Patient: JUNI HODGES Exam Date: 09/24/2022 : 1960 Gender:F Ordering : SHAIKH Quintin CHAPIN . Admission #: [id number] Family : Order #: [id number] CLICK HERE TO VIEW EXAM RADIOLOGY REPORT [...] breast cancer at age 69. LOCATION: [facility] BREAST COMPOSITION: Scattered areas fibroglandular density. FINDINGS: [...] LUMP SHOULD BE BIOPSIED. Dictated by: Celine Saxena M.D. on 09/24/2022 at 13:30 Approved by: Celine Saxena M.D. on 09/24/2022 at 13:35[facility]riners HospitalLIPID PROFILEon 35-05-0836AGKC-HDL RATIO NORMSEE BELOWCincinnati Shriners HospitalComhawthorn center on above:Result Comment: 3.3 - 4.4 LOW RISK 4.4 - 7.1 AVERAGE RISK 7.1 - 11.0 MODERATE RISK >11.0 HIGH RISKPerformed By: #### LIPID, TSH #### [facility] [address] [place] [address] [address] Emmanuel De La Cruzesterol [Mass/Vol]149 mg/dLNormal<=200[facility] Comment on above:Performed By: #### LIPID, TSH #### [facility] [address] [place] [address] [address] Emmanuel De La Cruzesterol in HDL [Mass/Vol]44 mg/yENrrxwd80-85NmyDayton Va Medical CenterComhawthorn center on above:Performed By: #### LIPID, TSH #### [facility] [address] [place] [address] [address] Emmanuel HillmanCholesterol in LDL [Mass/Vol]87.6 mg/dLCincinnati Shriners HospitalComment on above:Performed By: #### LIPID, TSH #### [facility] [address] [place] [address] [address] Emmanuel Trent.total/Cholesterol in HDL [Mass ratio]3.4 {ratio} NormalDayton Va Medical CenterComhawthorn center on above:Performed By: #### LIPID, TSH #### [facility] [address] [place] [address] [address] Emmanuel Aviles NORMAL> or = 60 mg/dl - LOW CARDIOVASCULAR RISK <40 mg/dl - HIGH CARDIOVASCULAR RISKCincinnati Shriners HospitalComment on above:Performed By: #### LIPID, TSH #### [facility] [address] [place] [address] [address] Emmanuel Ocampo CALC NORMALSEE Kindred HealthcareComment on above:Result Comment: <100 mg/dl OPTIMAL 100 - 129 mg/dl NEAR OR ABOVE OPTIMAL 130 - 159 mg/dl BORDERLINE HIGH 160 - 189 mg/dl HIGH >190 mg/dl VERY HIGH Performed By: #### LIPID, TSH #### [facility] [address] [place] [address] [address] Emmanuel HillmanTriglyceride [Mass/Vol]87 mg/dLNormal<=150[facility] Comment on above:Performed By: #### LIPID, TSH #### [facility] [address] [place] [address] [address] Emmanuel Ball CALC17.4 mg/dLCincinnati Shriners HospitalComment on above: Performed By: #### LIPID, TSH #### [facility] [address] [place] [address] [address] Emmanuel Gunn 78-56-4440MDI4.614 uIU/mLNormal0.358-3.740Day[facility] Medical CenterComhawthorn center on above:Performed By: #### LIPID, TSH #### [facility] [address] [place] [address] Dr. Emmanuel Conway Kindred HealthcareComment on above: Result Comment: <0.34 UIU/ml HYPERTHYROID 0.34-5.60 UIU/ml EUTHYROID >5.60 UIU/ml HYPOTHYROIDPerformed By: #### LIPID, TSH #### [facility] [address] [place] [address] Dr. Emmanuel HillmanProvider Letter [facility] TAHLEQUAHadan 73-43-2676Twjpjjwf Letter [facility] [address], [address] [place] [address] Re: JUNI HODGES Date of : 1960 Thank you for your referral of Juni Hodges who was seen on consultation for abdominal pain, Right upper quadrant pain and nausea with vomiting. I have enclosed my consultation note for your review. I will be happy to follow Juni. Sincerely, Raymond Davalos MD General SurgeryNoTrumbull Regional Medical CenterAmbulatory Clinical Summaryon 36-55-6397Hqbxtbbowx Clinical Summary {f7-52-6y-1m-q7-7s-11-6w-j4-z3-7k-l6-14-89-64-1c}CD:[id number] Regional Medical CenterGastroenterology Office/Clinic Noteon 43-21-8425Kwuakiyvtnnpsccg Office/Clinic NoteChief Complaint f/u EGD/Colon HPI Staff This is a 60 year old female who presents today for a follow up to EGD and colonoscopy. History of Present Illness The patient or their guardian verbally consented to allow Louisa Kern to record this visit. Juni Hodges is a 60-year-old white female presents today [...] rubs, murmurs or gallop. Peripheral: no edema Gastrointestinal/Abdomen: Abdomen: normal consistency and bowel sounds; no [...] switch it to pantoprazole. Patient was advised toincrease the dose of pantoprazole to BID if [...] after patient consented to recording for virtual news content specialist and provider reviewed before signing. ORALIA: Dona Ramires. Follow-up With When Contact (more content not included)...[facility] HospitalComment on above:Result Comment: Electronically Signed By: Dona Ramires R\.br\Date and Time Signed: 08/15/21 14:52 EDT\.br\Electronically Co-Signed By: Raman HENRY MD\.br\Date and Time Co-Signed: 08/19/21 09:50 EDTReminderson 41-27-4958Hbdxlwnoq From: Raman HENRY MD To: [facility] - Clinical; Sent: 08/15/2021 13:23:07 EDT Show up: 08/15/2021 13:23:00 EDT Subject: Ambulatory Reminder repeat colonoscopy in 5 years Reminder/RecallNoTrumbull Regional Medical CenterCoding Summary.on 07-12-2021 Coding Summary. CD:[id number]:[id number]+PGhlYWQ+CF9TNXRmO11bsXOssN0KY7lGJF3NZWRMAISCZX8VTP2oo VR1FEfwA7LybcNv [file] IGNv (more content not included)...NormalCape Fear Valley Bladen County Hospitallorene [facility] Midtown CampusUS Abdomen, Limitedon 47-70-1712BB Abdomen, LimitedExam Date/Time: 06/25/2021 08:39 EDT Reason for Exam: [...] Drake Singh MD Transcribed by: VIRGIL Technologist: [facility] Medical CenterConsent for Treatmenton 23-81-0741Ouhjsar for Treatment [id number]#1.00CD:127NoTrumbull Regional Medical CenterIntraOperative Documentson 11-16-4818NkmitKibufyzrl Documents [id number]#1.00CD:127Shel[facility] Arms HospitalPostoperative Documentson 05-25-3107Dqkcvfmtcwwqs Documents [id number]#1.00CD:127S[facility] HospitalCoding Summary.on 12-95-2831Ulblpm Summary. CD:699842PG:2261621EEn4yEp+PGhlYWQ+VS5GKEJdB27brNRptS5WK9qREP6XTAETWREWIX9ZOF1ar VR0MUgcA9MqhcBc [file] IGNv (more content not included)...Sheltering Arms [facility] Intraoperative Recordon 52-27-0025Lzpa OR Intraoperative RecordIntraOp Document Type FT Summary Primary Physician: Raman HENRY MD Finalized Date/Time: 06/17/21 09:30:46 Pt. Name: JUNI HODGES Willi/Sex: 1960 Female Med Rec #: [id number] Physician: Raman HENRY MD Financial #: [id number] Pt. Type: O Room/Bed: / Admit/Disch: 06/12/21 [...] Kay RN, Mikayla Toth Role Performed Anesthesiologist Assessment Expert - Primary Scrub - Primary Supervisor Ski Production Time In 06/12/21 12:49:00 06/12/21 12:49:00 06/12/21 12:49:00 Time Out 06/12/21 13:10:00 06/12/21 13:10:00 06/12/21 13:10:00 Procedure EGD AND COLONOSCOPY(.) EGD AND COLONOSCOPY(.) EGD AND COLONOSCOPY(.) Comments DR. SMITH SUPERVISING Last Modified By: Ita Childress RN, RN, Ita Queen RN 06/12/21 14:49:23 [...] and tissue Entry 1 Skin Integrity Intact, Berry, Warm, and Skin Abnormality No Dry Outcomes [...] a result of positioning (more content not included)...[facility] HospitalConsenton [id number]#1.00CD:[address] [place], [place] [address]Discharge Instructionson 85-95-0575Umtfmjrjz Instructions [id number]:127NoTrumbull Regional Medical CenterIntraOperative Documentson 45-95-5818NpnkqAgtzpzwdv Documents [id number]#1.00CD:127[facility] HospitalIntraOperative Documents [id number]#1.00CD:[address] [place], [place] [address]CBC w/Indiceson 52-56-2846Icvmazerawv distribution width (RBC) [Ratio]15.6 %High10.9-14.2FBluffton HospitalComment on above:Performed By: #### 4597945, 60523797, 2628510, 0175405 ####[place] [address] [address]Nsnodynigu (Bld) [Volume fraction] 36.8 %Voebma67.0-46.0[facility] MemorialComment on above:Performed By: #### 9148191, 45331012, 7049816, 9801396 ####[address] [address]Otbbbnhngy (Bld) [Mass/Vol]12.5 g/dL Cfpvjr43.0-16.0[facility] MemorialComment on above:Performed By: #### 2918341, 52340680, 0577229, 9294174 ####[place] [address] [address]DSJ (RBC) [Entitic mass]28.6 pgNormal 27.0-34.0[facility] MemorialComment on above:Performed By: #### 7605561, 22530209, 4580492, 0009649 ####[place] [address] [address]MCVH (RBC) [Mass/Vol]33.8 g/wWBszrfs28.4-36.0[facility] MemorialComment on above:Performed By: #### 0729669, 45317520, 5298338, 6853827 ####[address] [address]HNX (RBC) [Entitic vol]84.5 qLKfvkng41.0-100.0[facility] MemorialComment on above:Performed By: #### 3319393, 36481565, 6072386, 8168181 ####[address] [address]Byxyflsi mean volume (Bld) [Entitic vol]8.0 fLNormal6.4-10.8[facility] MemorialComment on above:Performed By: #### 1506861, 47099536, 0063782, 3150369 ####[address] [address]Eijwrnyed (Bld) [#/Vol]186.0 E9/LSdzrou489.0-500.0[facility] MemorialComment on above:Performed By: #### 4236245, 48394113, 8578694, 2149655 ####[address] [address]NDZ (Bld) [#/Vol]4.4 E12/LNormal4.3-5.9[facility] MemorialComment on above: Performed By: #### 9133061, 88388658, 5998234, 8359553 ####[address] [address]CIS corrected for nucl RBC Auto (Bld) [#/Vol]5.7 E9/LNormal4.0-11.0[facility] MemorialComment on above:Performed By: #### 3128563, 19841521, 8154929, 8446732 ####[address] [address]XPTlz 06-12-2021 Albumin [Mass/Vol]3.9 g/dLNormal3.3-5.0[facility] MemorialComment on above:Performed By: #### 6467315, 65292975, 9947888, 6107406 ####[address] [address]Uwmskfl/Globulin (S) [Mass conc ratio]1.8Ztntqh2.1-2.2FBluffton HospitalComment on above: Performed By: #### 1880923, 60915824, 3707568, 2903743 ####[address] [address]DWM [Catalytic activity/Vol]56 Int._Unit/IDhaoyt87-84MonqhbKettering Health Greene MemorialComment on above:Performed By: #### 6499857, 08859182, 0355938, 1427828 ####[address] [address]COF No additional P-5'-P [Catalytic activity/Vol]23 Int._Unit/LNormal6-46[facility] MemorialComment on above:Performed By: #### 8040855, 11451157, 5808174, 8123624 ####[address] [address]Rkzjk gap [Moles/Vol] 13 mmol/LNormal6-16[facility] MemorialComment on above:Performed By: #### 7933230, 67330988, 3462813, 4287493 ####[address] [address]ZGC [Catalytic activity/Vol]18 Int._Unit/LNormal5-43[facility] MemorialComment on above:Performed By: #### 0073712, 89557386, 8561146, 4248146 ####[address] [address]Mkeynkvzk [Mass/Vol]0.6 mg/dLNormal 0.0-1.1FBluffton HospitalComment on above:Performed By: #### 9307309, 66325567, 2001252, 4506669 ####[address] [address]Yqbnutg [Mass/Vol]9.0 mg/dLNormal8.9-11.1FBluffton HospitalComment on above:Performed By: #### 8174362, 17752479, 5620174, 7928573 ####[address] [address]Adcbfewj [Moles/Vol]111 mmol/TYipizi500-831SrynlzKettering Health Greene MemorialComment on above:Performed By: #### 3819261, 72976310, 2284259, 0419903 ####[facility] [place], [place] [address]CP2 [Moles/Vol]25 mmol/AMmythd35-30JqayvqKettering Health Greene MemorialComment on above:Performed By: #### 7686209, 64658410, 1564264, 5327387 ####[place] [address] [place], [place] [address]Vqbsbhwtoo [Mass/Vol] 0.7 mg/dLNormal0.5-1.3FBluffton HospitalComment on above:Performed By: #### 5732898, 17611195, 5718202, 9302853 ####[address] [address]Dlhehzvl (S) [Mass/Vol]3.4 g/dLNormal 1.4-4.0[facility] MemorialComment on above:Performed By: #### 1397849, 81362652, 5635605, 8191124 ####[address] [address]Hslnedq [Mass/Vol]99 mg/zCIqdlkc17-542OkbwvjKettering Health Greene MemorialComment on above:Result Comment: If this glucose result represents a fasting glucose, interpretation should refer tothe following reference range: 55-99 mg/dLPerformed By: #### 1712837, 77951768, 0532684, 7995754 ####[address] [address]Hajsvsmld [Moles/Vol]3.6 mmol/LNormal3.5-5.3FBluffton HospitalComment on above: Performed By: #### 4129044, 09973243, 5124775, 2892591 ####[address] [place], [place] [address]Qmajuzc [Mass/Vol]7.3 g/dL Normal6.0-7.8[facility] MemorialComment on above:Performed By: #### 9968445, 57271885, 2475728, 7072634 ####[facility] [address] [place], [place] [address]Boplvr [Moles/Vol]145 mmol/LNormal 135-145[facility] MemorialComment on above:Performed By: #### 7869723, 94770130, 2264343, 6058265 ####[facility] [address] [place], [place] [address]Dyfz nitrogen [Mass/Vol]10 mg/dLNormal5-21[facility] MemorialComment on above:Performed By: #### 1250896, 72637281, 4333571, 8107001 ####[facility] [address] [place], [place] [address]Kukh nitrogen/Creatinine [Mass ratio]14 No KqigpRikppo85-70 [facility] MemorialComment on above:Performed By: #### 8414762, 96687708, 7874056, 9540752 ####[facility] [address] [place], [place] [address]Yewlkot for Treatmenton 83-02-6256Eywvuib for [id number]#1.00CD:127NormKettering Health Greene MemorialEndoscopic Procedure Report - Otheron 29-77-2646Moawkqdsyo Procedure Report - OtherPatient: JUNI HODGES Age: 60 years Sex: Female : 1960 [...] Pre-procedure diagnosis: Unexplained chronic abdominal pain. Medications Anticoagulant/antiplatelet None. ASA Classification: Class II. . Procedure [...] Small nonbleeding internal hemorrhoids Images Procedure images: Rec1_hd_video_2020__[id number].jpg Rec1_hd_video_2020__[id number]_05_10_[id number].jpg . Post-Procedure Complications: none. Estimated blood loss: [...] current medications. Return to activities:: After 24 hours.[facility] HospitalComment on above:Result Comment: Electronically Signed By: Raman HENRY MD\.br\Date and Time Signed: 06/12/21 13:09 EDTOther Comment: Missing Attachment - attachment storage system not supported [id number] Can be viewed in source systemMissing Attachment - attachment storage system not supported [id number] Can be viewed in source systemEndoscopic Procedure Report - OtherPatient: JUNI HODGES Age: 60 years Sex: Female : 1960 Associated Diagnoses: None Author: Raman HENRY MD Pre-Procedure Procedure Date 06/12/2021 12:55:00 . Procedure Type: Esophagogastroduodenoscopy. Procedure provider Performed by Raman Henry MD. Current history and physical Documented on chart. Informed Consent After discussing the rationale, risks and benefits, and alternatives to this procedure, the patient provided signed consent for the procedure. Pre-procedure diagnosis: Epigastric pain. Medications Anticoagulant/antiplatelet No anticoagulation or antiplatelet. ASA Classification: Class II. . Monitoring: See anesthesia record. . Procedure The procedure was performed in the hospital. See anesthesia record for sedation given during procedure. The patient was positioned starting in the left lateral decubitus position and with safety measures. Endoscope type used was an adult- size, introduced orally, advanced to the 2nd portion [...] weeks 3. Gallbladder ultrasound, CBC, CMP and lipaseNormalKettering Health Greene Memorial Comment on above:Result Comment: Electronically Signed By: Raman HENRY MD\.br\Date and Time Signed: 06/12/21 13:08 EDTOther Comment: Missing Attachment - attachment storage system not supported [id number] Can be viewed in source systemMissing Attachment - attachment storage system not supported [id number] Can be viewed insour systemMissing Attachment - attachment storage system not supported [id number] Can be viewed in source systemMissing Attachment - attachment storage system not supported [id number] Can be viewed in source system Inpatient Patient Summaryon 22-05-5121Jiiezeevb Patient Summary [address] [address] [facility] Clinical Discharge Instructions PERSON INFORMATION Name: JUNI HODGES PHYSICIANS Admitting Physician: Raman HENRY MD Attending [...] Cap-DR) 1 Capsules By Mouth every day. Comment:NormalKettering Health Greene MemorialLipase Levelon 20-15-0033Tpbicz [Catalytic activity/Vol]23 U/ATgmspw60-11TyuvsgKettering Health Greene MemorialComment on above:Performed By: #### 2701293, 41779040, 0823114, 0869801 ####[facility] [address] [place], [place] [address]Ekdt OR PACU I Record on 38-43-6510Ylta OR PACU I RecordPACU Phase I Document Type FT Summary Primary Physician: Raman HENRY MD Finalized Date/Time: 06/12/21 14:39:20 Pt. Name: JUNI HODGES /Sex: 1960 Female Med Rec #: [id number] Physician: Raman HENRY MD Financial #: [id number] Pt. Type: O Room/Bed: / Admit/Disch: 06/12/21 [...] individualized perioperative plan of care The patient's rightto privacy is maintained The patient's value system, [...] with or improved from baseline levels established preoperativelyThe patient's cardiovascular status is consistent with or improved from baseline levels established preoperatively The patient's cardiovascular status is consistent with or improved from baseline levels established preoperatively The patient demonstrates and/or reports adequate pain control throughout the perioperative period The patient received appropriate medication(s), safely administered during the perioperativeperiod Acuity Level PACU I FT Entry 1 Start Time 06/12/21 13:11:00 Stop Time 06/12/21 13:48:00 Acuity Level Acuity Level I Last Modified By: Dolores De Leon RN 06/12/21 14:39:19 Finalized By: Dolores De Leon RN Document Signatures Signed By: Dolores De Leon RN 06/12/21 14:39NoTrumbull Regional Medical CenterMain OR Preoperative Recordon 53-38-2217Yvtf OR Preoperative RecordHolding Area Document Type FT Summary Primary Physician: Raman HENRY MD Finalized Date/Time: 06/12/21 11:42:13 Pt. Name: JUNI HODGES /Sex: 1960 Female Med Rec #: [id number] Physician: Raman HENRY MD Financial #: [id number] Pt. Type: O Room/Bed: / Admit/Disch: 06/12/21 [...] or her perioperative plan of care The patient'sright to privacy is maintained Surgery Checklist FT [...] Signatures Signed By: Rosie Bravo RN 06/12/21 11:42NoTrumbull Regional Medical CenterMonitor Record on 43-49-4793Gjadigu [id number]#1.00CD:127 [facility] HospitalOutpatient Surgery Discharge Instructionon 08-88-3230Ewotxsloxg Surgery Discharge Instruction [place] [id number] Patient Discharge Instructions PERSON INFORMATION Name: JUNI HODGES Date of : 1960 Current Date: 06/12/2021 13:10:48 PHYSICIANS Admitting Physician: MARTÍN ARMAS, [facility] Discharge Diagnosis: Esophageal inlet patch JUNI HODGES has been given the following list of follow-up instructions, prescriptions, and patienteducation materials: PATIENT FOLLOW-UP INFORMATION Diet: Regular Discharge Activity: Resume normal activities in 24 hours Discharge Restrictions: No driving for 24 hrs, Do not operate machinery or tools, Do not make important decisions for 24 hours IF UNABLE TO CONTACT YOUR PHYSICIAN AND YOU FEEL IT IS AN EMERGENCY, GO TO THE NEAREST EMERGENCY ROOM OR CALL 911 I, JUNI HODGES, have received the attached patient education materials/instructions [...] to serve you. Thank you for choosing [facility] HERE ARE THE MEDICATION CHANGES THAT OCCURRED [...] By Mouth every day. PATIENT EDUCATION INFORMATION Instructions:[facility] HospitalPatient Education - Texton 24-64-1564Qmpebpj Education - TextNoTrumbull Regional Medical CenterProgress Note-Physicianon 32-72-0190Zsxjnpjb Note-PhysicianPatient: JUNI HODGES Age: 60 years Sex: Female : 1960 Associated Diagnoses: None Author: Albert Smith JR, DO Postoperative Information Post Operative Note: [...] 166 cm (JUN 12:) BMI 36.73 (JUN 12) Pain assessment: Pain Assessment 06/12/2021 13:11 EDT Pain Symptoms Self Report No, able to self report . Respiratory: Adequate air exchange with uatsdin of preoperative function.. Cardiovascular: Cardiovascular function is stable and has returned to preoperative levels.. Neurologic: Pt has returned to preoperative baseline.. Review / Management Condition: Stable. Assessment Anesthetic outcome No anesthetic complications noted. Plan Transfer/ Discharge: Patient can be discharged from PACU when criteria met. Condition good.[facility] HospitalComment on above:Result Comment: Electronically Signed By: Albert Smith JR, DO\.br\Date and Time Signed: 06/12/21 14:43 EDTProgress Note-PhysicianPatient: JUNI HODGES Age: 60 years Sex: Female : 1960 Associated Diagnoses: None Author: Albert Smith JR, DO Postoperative Information Post Operative Note: Post Anesthesia Care Unit. Anesthetic utilized: General, Monitored anesthesia care. Health Status Allergies: Allergic Reactions (Selected) No Known Allergies No Known Medication Allergies Current medications: (Selected) Prescriptions Prescribed Plenvu oral powder for reconstitution: See Instructions, 1 EA, Refill(s) 0, PER PHYSICIAN INSTRUCTIONS, [facility], 166, cm, 04/23/21 9:16:00 EDT, [...] data available Respiratory: Adequate air exchange with uatsdin of preoperative function.. Cardiovascular: Cardiovascular function is stable and has returned to preoperative levels.. Neurologic: Pt has returned to preoperative baseline.. Review / Management Condition: Stable. Assessment Anesthetic outcome No anesthetic complications noted. Plan Transfer/ Discharge: Patient can be discharged from PACU when criteria met. Condition good.[facility] HospitalComment on above:Result Comment: Electronically Signed By: Albert Smith JR, DO 24-45-5476QZC/1.73 sq M.predicted among blacks MDRD (S/P/Bld) [Vol rate/Area]mL/min/{1.73_m2}Normal >=59[facility] MemorialComment on above:Order Comment: Order added by Discern Expert.Result Comment: eGFR is race adjusted. AA=. Performed By: #### [id number], 92702076, 6645413, 2821694 ####[place] [facility] [address] [place], [place] [address]ATL/1.73 sq M.predicted among non-blacks MDRD (S/P/Bld) [Vol rate/Area]mL/min/{1.73_m2}Normal>=59[facility] MemorialComment on above:Order Comment: Order added by Discern Expert. Result Comment: Chronic kidney disease could be indicated at eGFR's of less than 60 mL/min/1.73m2. Kidney failure is indicated at less than 15 mL/min/1.73m2. Performed By: #### 4371487, 81607426, 1846688, 3735637 ####[place] [facility] [address] [place], [place] [address]Aiggugra Note-Physicianon 02-32-9535Wkdjouly Note-PhysicianPatient: JUNI HODGES Age: 60 years Sex: Female : 1960 Associated Diagnoses: None Author: Albert Smith JR, DO Preoperative Information Anesthesia history: Patient [...] 1 EA, Refill(s) 0, PER PHYSICIAN INSTRUCTIONS, [facility], 166, cm, 04/23/21 9:16:00 EDT, [...] review: No qualifying data available . Plan [place] [employer] Anesthesiologists (ASA) physical status classification: Class II. Anesthetic Preoperative Plan Anesthesia: Monitored anesthesia care and general anesthesia if required.. Anesthetic plan, risks, benefits, and alternatives discussed with the patient and/or family. Pt. and/or family present and agree to proceed as planned.. Discussed the importance of abstaining from tobacco products, and offered counseling if desired..[facility] HospitalComment on above:Result Comment: Electronically Signed By: Albert Smith JR, DO.chacho\Date and Time Signed: 06/11/21 14:42 EDT Vital Signs Date TimeVital SignValuePerforming CrhitttoiWyjsgkmn72-65-9303 10:090400Body icaljd289.56 cmJessica Mojgan DO Work Phone: [phone] [place], [place] 1577210-29-2025 10:09-0400 Body mass index (BMI) [Ratio]37.5 kg/m1Cicjjis Mojgan DO Work Phone: [facility]10-29-2025 10:09-0400 Body ruzluq22.33 kgJessica Mojgan DO Work Phone: [facility]10-29-2025 10:09-0400 Diastolic blood pforgkih22 mm[Hg]Maddison Mojgan DO Work Phone: [phone]-[facility]10-29-2025 10:09-0400 Heart rate69 /minJessica Mojgan DO Work Phone: [phone]-[facility]10-29-2025 10:09-0400 Systolic blood psrtcond609 mm[Hg]Maddison Mojgan DO Work Phone: [facility]10-16-2025 10:55-0400 Body itjuyy343.56 cmCatherine Ly DO Work Phone: [phone] [place], [place] 2473810-16-2025 10:55-0400 Body mass index (BMI) [Ratio]37.5 kg/e5Bxurenueu Ly DO Work Phone: [phone] [place], [place] 2473810-16-2025 10:55-0400 Body zhonus94.33 kgCatherine Ly DO Work Phone: [phone])[address] [place], [place] 2473810-16-2025 10:55-0400 Diastolic blood czzhjqwy78 mm[Hg]Marlen Ly DO Work Phone: [phone])[address] [place], [place] 2473810-16-2025 10:55-0400 Heart rate73 /minCatherine Ly DO Work Phone: 1(505)[address] [place], [place] 2473810-16-2025 10:55-0400 Respiratory rate20 /minCatherine Ly DO Work Phone: [phone])[address] [place], [place] 2473810-16-2025 10:55-0400 SaO2% (BldA) [Mass fraction]96 %Marlen Ly DO Work Phone: [phone])[address] [place], [place] 2473810-16-2025 10:55-0400 Systolic blood orxzvrep045 mm[Hg]Marlen Ly DO Work Phone: [phone])[address] [place], [place] 2473807-30-2025 14:35-0400 Diastolic blood qyautjpy83 mm[Hg]Charo Baker MD Work Phone: [phone])[address] [place], [place] 5464207-30-2025 14:35-0400 Heart rate74 /Curtis Baker MD Work Phone: 1(968)[address] [place], [place] 5464207-30-2025 14:35-0400 Respiratory rate17 /Curtis Baker MD Work Phone: 1(467)[address] [place], [place] 5464207-30-2025 14:35-0400 SaO2% (BldA) [Mass fraction]94 %Charo Baker MD Work Phone: 1(374)[address] [place], [place] 5464207-30-2025 14:35-0400 Systolic blood mm[Hg]Charo Baker MD Work Phone: 1(474)[address] [place], [place] 5464207-30-2025 12:22-0400 Body cxcfus952.56 cmCharo Baker MD Work Phone: 1([phone])[address] [place], [place] 5464207-30-2025 12:22-0400 Body bmajna59.25 kgCharo Baker MD Work Phone: 1(081)[address] [place], [place] 5464207-14-2025 10:22-0400 Body qyqfwd289.56 cmCharo Baker MD Work Phone: [phone])[address] [place], [place] 5464207-14-2025 10:22-0400 Body mass index (BMI) [Ratio]37.8 kg/m2Charo Baker MD Work Phone: 1(739)[address] [place], [place] 5464207-14-2025 10:22-0400 Body gjesmh10.79 kgCharo Baker MD Work Phone: 1(253)[address] [place], [place] 5464207-14-2025 10:22-0400 Diastolic blood rnfexxgl64 mm[Hg]Charo Baker MD Work Phone: 1(489)[address] [place], [place] 5464207-14-2025 10:22-0400 Heart rate78 /minCharo Baker MD Work Phone: 1(516)[address] [place], [place] 5464207-14-2025 10:22-0400 Systolic blood zvknaoee332 mm[Hg]Charo Baker MD Work Phone: 1(648)[address] [place], [place] 5464207-09-2025 10:50-0400 Body lvnmeu987.1 cmZachary Aldana MD Work Phone: [facility] CenterUvkfpjgmlp90-91-2632 10:50-0400Body mass index (BMI) [Ratio]37.28 kg/m2Zachary Aldana MD Work Phone: [facility] CenterHmccnkezfa56-55-6564 10:50-0400Body temperature 95.7 [degF]Zachary Aldana MD Work Phone: [facility] CenterNafgnvtmif65-44-0226 10:50-0400Body uaypdp126.61 kgZachary Aldana MD Work Phone: [facility] CenterEchmbgpffa86-90-1506 10:50-0400Diastolic blood mbasxnpe95 mm[Hg]Zachary Aldana MD Work Phone: [facility] CenterXoelixalsm77-30-2233 10:50-0400Heart rate91 /min Zachary Aldana MD Work Phone: [facility] CenterKryirzgdke17-86-4506 10:50-0400Respiratory rate22 /minZachary Aldana MD Work Phone: [facility] CenterDtxrpisvwa93-43-4650 10:50-8992LmO4% (BldA) [Mass fraction]97 %Zachary Aldana MD Work Phone: [facility] CenterPwpzrtbvck68-10-7289 10:50-0400Systolic blood dprelgwu231 mm[Hg]Zachary Aldana MD Work Phone: [facility] CenterHvmroittgm40-87-2392 16:28-0400Body temperature 97.2 [degF]Leroy Zacarias DO Work Phone: [facility] CenterVnsezmijxm57-61-9794 16:28-0400Diastolic blood qckaxvtp88 mm[Hg]Leroy Tesmarshall ALEJANDRE Work Phone: [facility] CenterVfilqvgcmt35-20-3950 16:28-0400Heart rate85 /min Leroy Finamarshall ALEJANDRE Work Phone: [facility] CenterXefexlrnns28-41-0680 16:28-1064IyI8% (BldA) [Mass fraction]97 %Leroy Finamarshall ALEJANDRE Work Phone: [facility]Xmmrthmpvv91-77-5839 16:28-0400Systolic blood mcjfodhy647 mm[Hg]Leroy Zacarias DO Work Phone: [facility] LouisYsivgophcq54-98-9753 10:25-0400Body btszix152.1 cmZachary Aldana MD Work Phone: [facility] LouisWowndonads31-96-9406 10:25-0400Body mass index (BMI) [Ratio]36.44 kg/m2Zachary Aldana MD Work Phone: [facility] CenterLnbdkjpgcp07-69-8080 10:25-0400Body temperature 97.3 [degF]Zachary Aldana MD Work Phone: [facility] CenterXudoojdepj10-34-9312 10:25-0400Body xyadsa07.34 kgZachary Aldana MD Work Phone: [facility] CenterPougarsnjh14-14-8035 10:25-0400Diastolic blood mm[Hg]Zachary Aldana MD Work Phone: [facility] CenterSckuypdcsr33-08-1549 10:25-0400Heart rate99 /min Zachary Aldana MD Work Phone: [facility] CenterLpgetsbrim51-05-0385 10:25-0400Respiratory rate20 /minZachary Aldana MD Work Phone: [facility] CenterIzeptumvzi65-05-6559 10:25-2175QiM5% (BldA) [Mass fraction]96 %Zachary Aldana MD Work Phone: [facility] CenterUoecjalttt17-43-2141 10:25-0400Systolic blood mm[Hg]Zachary Aldana MD Work Phone: [facility] CenterTpymclwbqg24-15-0300 13:01-0500Body xasixj067.1 cmBen Turpin FACE BURLER Work Phone: [facility] CenterUuhlydghfn90-13-8470 13:01-0500Body mass index (BMI) [Ratio]36.01 kg/p2Bhdzowzk Turpin FACE BURLER Work Phone: [facility] CenterPacpzwdpfr11-93-3280 13:01-0500Body temperature 97.2 [degF]Ben Trupin FACE BURLER Work Phone: [facility] CenterWukyusdpna04-05-7714 13:01-0500Body yjuxud59.16 kgBen Trevinotrick FACE BURLER Work Phone: [facility] CenterOsoxcplpdl60-02-2782 13:01-0500Diastolic blood xgrnsrud35 mm[Hg]Ben Maopatrick FACE BURLER Work Phone: [facility] CenterPtyprgcsbv42-96-9600 13:01-0500Heart epch875 /min Ben Maopatrick FACE BURLER Work Phone: [facility] CenterCthtpzmqur00-76-5513 13:01-0500Respiratory rate16 /minBen Trevinotrick FACE BURLER Work Phone: [facility] CenterCzmtbkdetw99-07-8581 13:01-0385IfC2% (BldA) [Mass fraction]95 %Ben Trevinotrick FACE BURLER Work Phone: [facility] CenterLyzdgvmxjb01-99-3762 13:01-0500Systolic blood dtocadwx944 mm[Hg]Ben Trevinotrick FACE BURLER Work Phone: [facility] CenterFwlwkmxyue21-91-5154 12:30-0500Body luakgm741.1 cmThe [facility]02-25-2024 12:30-0500Body mass index (BMI) [Ratio]36.3 kg/r0KaidmrjinThe [facility] Hospital02-25-2024 12:30-0500Body vpbdymcxzmn80.2 [degF][facility]02-25-2024 12:30-0500Body vvnrce50.1 kgThe [facility]02-25-2024 12:30-0500Heart rate74 /[facility]02-25-2024 12:30-0500Respiratory rate18 /[facility]02-25-2024 12:30-3261RvD9% (BldA) [Mass fraction]97 %[facility] Encounters Encounter DateEncounter TypeCare ProviderFacilityStart: 08-30-2025 End: 45-61-5007ietipqyfgrGjbthvj Mojgan DO Work Phone: [phone]-[facility] Health GastroStart: 08-30-2025 End: 31-10-5173Scqjbrp encounter Kay Walter APRN-[facility] Work Phone: Start: 08-17-2025 End: 03-68-3019uxacdmcppvOqqwqmltd L Ly DO Work Phone: [facility] Work Phone: Start: 08-17-2025 End: 72-57-4056Npumrte encounter procedureJejasen Mojgan DO-[facility] [place] Work Phone: Start: 06-21-2025 End: 62-92-2570jrypwqxvvaJRVNGOhio State University [facility]ner [facility] Start: 79-32-1913tjegwrvxqrJOVDEOhio State University Wexner Medical Center Start: 06-20-2025 End: 98-73-7349efkhjdikrdMDARKAultman [facility] Start: 06-01-2025 End: 92-88-5390Xkufmratm encounterMarsharri Aldana MD Work Phone: noms [facility] FMStart: 05-31-2025 End: 00-04-0491fapbawetnaDrofhiran L LyFacility:[facility] Campustart: 92-96-0227Ajy-patient / Non-visitCatherine L Ly DO-[facility] Work Phone: Start: 05-19-2025 End: 94-50-3312Jhjggzvuo Result EncounterZachary Aldana MD Work Phone: noms External Department UnsolicitedStart: 05-19-2025 End: 38-38-2733Btzjabroq Result EncounterZachary Aldana MD Work Phone: noms External Department UnsolicitedStart: 05-15-2025 End: 54-19-0916rasvzzbfwoGhv E Knight MD Work Phone: [facility] Work Phone: Start: 05-15-2025 End: 12-88-2018Bokpbyd encounter Kay [facility] Work Phone: Start: 05-10-2025 End: 57-99-8792Qjsrvv Xander Aldana MD Work Phone: [facility] C[facility] FMStart: 05-10-2025 End: 49-74-3839Lewxsg Xander Aldana MD Work Phone: [facility] FMStart: 05-10-2025 End: 13-85-3982Htdajf outpatient visit 25 minutesZachary Aldana MD Work Phone: [facility] FMComment on above:Degeneration of intervertebral disc of lumbar region with discogenic back pain (Primary Dx); Gastroesophageal reflux disease without esophagitis; Globus sensationStart: 05-10-2025 End: 19-98-1717usjrctmfloMAFO NADERERNot AvailableStart: 04-25-2025 End: 70-69-8634yarznzqhkhBNAVFZY G TESMONDNot AvailableStart: 04-25-2025 End: 90-37-8346Ilnucq outpatient visit 25 minutesLeroy Zacarias DO Work Phone: [facility] SWS UCComment on above:Strain of left calf muscle (Primary Dx); Left knee pain, unspecified chronicityStart: 04-24-2025 End: 51-35-6160Nkkydkzec Radha Aldana MD Work Phone: [facility] FMStart: 02-23-2025 End: 89-87-3807Nlseum Xander Aldana MD Work Phone: [facility] FMStart: 02-23-2025 End: 51-54-4965Bwrvop Xander Aldana MD Work Phone: [facility] FMStart: 02-23-2025 End: 66-26-8025Cnhuxtsml Result Radha Aldana MD Work Phone: NOMS External Department UnsolicitedStart: 02-23-2025 End: 79-70-3912udkfyjkpltROQM NADERERNot AvailableStart: 02-23-2025 End: 51-07-3932Ecgipe outpatient visit 25 minutesMarc Naderer MD Work Phone: noms CWM FMComment on above:Chronic bilateral low back pain with right-sided sciatica (Primary Dx); Gastroesophageal reflux disease without esophagitis; Class 2 severe obesity due to excess calories with serious comorbidity and body mass index (BMI) of36.0 to 36.9 in adult (CMS/HCC); Dyslipidemia (CMS/HCC)Start: 12-16-2024 End: 24-41-7168Nzvcxjsmb Result EncounterBrittany Turpin FACE BURLER Work Phone: noms External Department UnsolicitedStart: 12-16-2024 End: 49-61-3506Tvecwxsjz Result EncounterBrittany Turpin FACE BURLER Work Phone: noms External Department UnsolicitedStart: 11-30-2024 End: 89-57-9056Poeext flowsheetBrittany Turpin FACE BURLER Work Phone: noms CWM FMStart: 11-30-2024 End: 40-23-1570Oftdpw flowsheetBrittany Turpin FACE BURLER Work Phone: noms CWM FMStart: 11-30-2024 End: 31-11-4784Epxzes outpatient visit 15 minutesBrittany Turpin FACE BURLER Work Phone: noms CWM FMComment on above:Other hyperlipidemia (CMS/HCC) (Primary Dx); Viral upper respiratory tract infection; Encounter for screening mammogram for malignant neoplasm of breast; Gastroesophageal reflux disease without esophagitisStart: 11-30-2024 End: 37-17-9639gnlyxucyniXDVXPMQQ FITZPATRICKNot AvailableStart: 11-28-2024 End: 23-73-5550OwbtupHmezcuvn Turpin FACE BURLER Work Phone: noms CWM FMComment on above:Other specified hypothyroidism (CMS/HCC)Hyperlipidemia, unspecified hyperlipidemia type (CMS/HCC)Start: 05-25-2024 End: 98-03-7710Fwnylgrlm Result Ora Chapin MD Work Phone: noms External Department UnsolicitedStart: 05-25-2024 End: 92-25-5487Smkhkbqet Result EncounterSallison Chapin MD Work Phone: noms External Department UnsolicitedStart: 05-24-2024 End: 51-47-6140Cvdaewbcj Result EncounterSallison Chapin MD Work Phone: noms External Department UnsolicitedStart: 05-24-2024 End: 60-19-2589Jrddhtcgl Result EncounterSallison Chapin MD Work Phone: noms External Department UnsolicitedStart: 05-17-2024 End: 35-45-3975Gxfusbt encounter statusChachonaila Maopatrick YENIFER Work Phone: noms HealthcareStart: 05-17-2024 End: 93-30-8559yxrkcfmtkwYVVSLJ FABjWADNot AvailableStart: 02-02-2024 End: 00-46-2059Rymioicce Result EncounterSallison Chapin MD Work Phone: noms External Department UnsolicitedStart: 02-02-2024 End: 59-21-1703Khmfmsyep Result EncounterSallison Chapin MD Work Phone: noms External Department UnsolicitedStart: 12-27-2023 End: 19-67-5223fzonbthqsuYrampzyhhPremier Health [facility] Work Phone: Start: 12-27-2023 End: 70-86-6340Yigftus encounter procedureCataw[facility] [place] Work Phone: Start: 12-16-2022 End: 38-12-0562myiblttahlCJEEHC H FANODFacility:Q8Kbbeu: 09-24-2022 End: 10-95-3155afnguiwranERLEAJ H FAWWADFacility:E0Tliyy: 05-13-2022 End: 97-02-3287wpolbplxtjAAJXM B APLINGFacility:M3Qnnqi: 04-08-2022 End: 43-77-8630jfzlupvutsMBWBXR H FAWWADFacility:C9Ibkxd: 03-25-2022 End: 51-66-2045viidgbqidsJZIDQV H FAWWADFacility:H1 Procedures DateProcedureProcedure DetailPerforming ClinicianStart: 68-48-5934EN LUMBAR SPINE WO CONMarc Kaushik ARMAS Work Phone: Start: 62-88-5371QJ LUMBAR SPINE 2 OR 3VMarc Kaushik ARMAS Work Phone: Start: 03-10-5188CQ TOMOSYNTHESIS SCREENING BIBrittany Turpin FACE BURLER Work Phone: Start: 66-05-9294OzlmjrrifjcBzuybwbx Turpin FACE BURLER Work Phone: Start: 44-88-4221CY CHEST WO Otto Chapin MD Work Phone: Start: 58-31-8217HB DEXA AXIAL SKELETONShaikh Tavares ARMAS Work Phone: Start: 70-07-1447TT CHEST 2VSallison Chapin MD Work Phone: Start: 16-75-4879RlkijaqldepPmplwrbt Turpin FACE BURLER Work Phone: Start: 93-72-0267EtuffmghwueVudhwopy Turpin FACE BURLER Work Phone: Plan of Treatment DateCare ActivityDetailAuthorStart: 03-93-0172Vnutqyoxl for malignant neoplasm of colonNOMS HealthcareStart: 14-67-5249Neouklneg for malignant neoplasm of breastMammogramNOMS HealthcareStart: 28-04-6208Obaykwdew for malignant neoplasm of cervixCervical Cancer ScreeningNOMS HealthcareComment on above:Postponed from 1989 (Patient Refused)Start: 08-17-2025 End: 87-64-6049Dbjvwrk encounter ptwlhuudt21/16/2025 11:00 AM EDT Office Visit [facility] [address] [place] [phone] Zachary Aldana MD [address] [place] [phone] [facility] FMStart: 44-13-9880Gvwopefpv vaccinationInfluenza Vaccine (#1)[facility] CenterStart: 05-31-2025 End: 92-43-2984PwrujtnvkSumma Health Akron Campustart: 05-30-2025 End: 96-19-0916Iorknnr encounter procedureNOOKLAHOMA HEAR[facility] [place] FMStart: 05-23-2025 End: 59-05-9246Rvakqrg encounter wlirbvasr07/22/2025 10:15 AM EDT Office Visit [facility] M FM [address] [place] [phone] Zachary Aldana MD [address] [place] [address] [facility] FMStart: 05-10-2025 End: 22-77-3991CB Lumbar spine WO contrastMR lumbar spine wo contrast Imaging Routine Degeneration of intervertebral disc of lumbar region with discogenic back pain Expected: 05/10/2025, Expires: 05/10/2026NOWY [employer] Work Phone: Comment on above:Expected: 05/10/2025, Expires: 05/10/2026Start: 05-10-2025 End: 47-45-7486Cerfcdl encounter procedureNOOKLAHOMA HEARTH HOSPITAL [facility] [place] FMComment on above:Arrived Start: 02-23-2025 End: 89-04-5240RN Lumbar spine 2 or 3 ViewsXR lumbar spine 2 or 3 views Imaging Routine Chronic bilateral low back pain with right-sided sciatica Expected: 02/23/2025, Expires: 02/23/2026NOW[facility] [employer] Work Phone: Comment on above:Expected: 02/23/2025, Expires: 02/23/2026Start: 24-64-2440Xqedyifsqrgp Vaccine: 65+ Years (1 of 1 - PCV) Pneumococcal Vaccine: 65+ Years (1 of 1 - PCV)[facility] HealthcareComment on above: Postponed from 2024 (Patient Ill Today)Start: 11-30-2024 End: 22-91-4348VM Breast - bilateral ScreeningBilateral screening mammogram Imaging Routine Encounter for screening mammogram for malignant neoplasm of breast Expected: 11/30/2024, Expires: 01/28/2026[facility] Work Phone: Comment on above:Expected: 11/30/2024, Expires: 01/28/2026Start: 11-30-2024 End: 91-20-7457Wlrokuq encounter procedureNOMS CWM FMComment on above:Arrived Start: 15-28-5445Uigqqnoht for malignant neoplasm of breastMammogramNOWY HealthcareStart: 62-48-4893Rahvybynctrg Vaccine: 65+ Years (1 of 1 - PCV) Pneumococcal Vaccine: 65+ Years (1 of 1 - PCV)[facility] HealthcareStart: 07-03-2024 Influenza vaccinationInfluenza Vaccine (#1)[facility] HealthcareStart: 2009 Pneumococcal Vaccine: 65+ Years (1 of 1 - PCV)Pneumococcal Vaccine: 65+ Years (1 of 1 - PCV)[facility] HealthcareStart: 83-07-4374Mziicmtux for malignant neoplasm of cervixNOMS HealthcareStart: 09-55-2256Gnximbjlb for malignant neoplasm of cervix Pap SmearNOWY HealthcareStart: 48-90-9084Mqfywrlir for malignant neoplasm of colonNOMS HealthcareCT Unspecified body regionThe [facility] Hospital DXA Skeletal system.axial Views for bone densityThe Jewish HospitalPatient EducationGastritis - Discharge instructions Know your [facility] Work Phone: Stress cardiac echo study reportBartow Regional Medical Center Immunizations Immunization DateImmunizationNotesCare VlayswnzQnyvgqxr17-86-6017inihpqksp virus vaccine, unspecified formulationBrnaila Turpin FACE BURLER Work Phone: [facility] CenterNxqljzzdob96-37-5994Xlammshev, Seasonal, Quadrivalent, AdjuvantedBrittany Turpin FACE BURLER Work Phone: [phone] [place], [place] [address]Xmiogksizf38-41-9739AJYO-EWW-9 (COVID-19) vaccine, mRNA, spike protein, LNP, PF, daysi-sucrose, 30 mcg/0.3 mLBrittany Turpin FACE BURLER Work Phone: [facility] CenterPenzmepqxg64-56-1212cftdpbgtp virus vaccine, unspecified formulationBrittany Turpin FACE BURLER Work Phone: [phone] [place], [place] [address]Rtqybfcvqn20-00-8474jkjccn vaccine recombinant Ben Turpin FACE BURLER Work Phone: [phone] [place], [place] [address]Oqqgocjtvj22-09-1464wefahd vaccine recombinant Ben Turpin FACE BURLER Work Phone: [phone] [place], [place] [address]Gydrwesnxz92-02-2752ohpcsboyd, injectable, quadrivalent, preservative freeBrittany Turpin FACE BURLER Work Phone: [phone] [place], [place] [address]Lcvwqdsmby61-08-9715ctmfsmmfy, injectable, quadrivalent, preservative freeBrittany Turpin FACE BURLER Work Phone: [phone] [place], [place] [address]Tbwjqbooic94-14-5501ycdefovks, injectable, quadrivalent, contains preservativeBrittany Turpin FACE BURLER Work Phone: [phone] [place], [place] [address]Eozcbwrcsx98-99-0945cidtmqiwd, injectable, quadrivalent, contains preservativeBrittany Turpin FACE BURLER Work Phone: [phone] [place], [place] [address]Ztuayhcrmh00-51-3267arrvzkwin, injectable, quadrivalent, preservative freeBrittany Turpin FACE BURLER Work Phone: [phone] [place], [place] [address]Pcmtjkibbb20-77-0370ixahyxuyu, seasonal, injectableBrittany Turpin FACE BURLER Work Phone: [phone] [place] [address] Payers DatePayer CategoryLayerEncompass Health [facility] [id number]-rdq [id number] [address] [id number] [id number]-3751Hxxopdm Health Insurance [id number]3[id number] 56-39-9093Flza-[id number] 2.0.1.042513.3.579.[id number] 2.0.1.156553.3.579.[id number] 2.0.1.419163.3.579.2.15289-47-1107Qptytmu3765421 2.840.1.017136.3.579.2.59342-33-8656Euwfmyj6145690 2.0.1.194850.3.579.2.61068-48-3369Cutllit10050988 2.16840.1.268174.3.579.2.129895-11-1325Tyigevb18640591 2.16840.1.028639.3.579.2.200332-03-3533Lqvgpmn61912924 2.0.1.629875.3.579.2.488649-86-2437Sgvhzpe6470586 2..0.1.458100.3.579.2.899257-72-7571Lcmfipw0426810 2.0.1.794749.3.579.2.537683-43-2587Genomrj1259392 2.16.840.1.225742.3.579.2.8156Poqkimz1098405 2.0.1.539196.3.579.2.593 MoiubcuNOR018O99840 7q2o436q-ixtk-9abg-v9do-[id number] 598l39wg-cbq1-1052-e1zm-8fe9[id number] 1088r773-9709-05y3-5c66-9029kr1s254lTjybmyn75525106 2.0.1.628478.3.579.2.531 Social History DateTypeDetailFacilityTobacco smoking status NHISUnknown if ever smokedMagruder Hospital Work Phone: Start: 38-09-1885Dnh Assigned At Community Memorial Hospitaltart: 80-72-7197Hfjwscb smoking status NHISNever smoked tobaccoNOMS HealthcareStart: 33-66-9516Xpittqy use and exposureSmokeless tobacco non-userNOMS HealthcareStart: 02-02-2024 End: 96-02-9093Dqhzkywqa beverage intakeCurrent drinker of alcohol (finding)N[facility]S HealthcareStart: 05-17-2024 End: 31-56-8675Jkddkpr of Social functionNOMS HealthcareStart: 05-17-2024 End: 93-18-7223Xgzxwqn use panelNOMS HealthcareStart: 86-52-9772Xlkfgzx Comment OCCASSIONALNOMS HealthcareStart: 47-47-8185Pad assigned at birthNot on fileNOMS HealthcareHow often do you need to have someone help you when you read instructions, pamphlets, or other written material from your doctor or pharmacy [SILS]NeverNOMS HealthcareWithin the last year, have you been afraid of your partner or ex-partner?NoNOMS HealthcareDo you belong to any clubs or organizations such as oriental orthodox groups, unions, fraSignal Sciences or athletic groups, or school groups?YesNOMS HealthcareAre you now , , , , never or living with a partner?MarriedNOMS HealthcareHow often to you have a drink containing alcohol?Monthly or lessNOMS HealthcareHow many standard drinks containing alcohol do you have on a typical day?3 or 4NOMS HealthcareHow often do you have 6 or more drinks on 1 occasion?Less than monthly N[facility]S HealthcareStart: 51-80-9421Qfy hard is it for you to pay for the very basics like food, housing, medical care, and heatingNot hard at allNOWY Healthcare(I/We) worried whether (my/our) food would run out before (I/we) got money to buy more.Never trueNOWY HealthcareTobacco smoking status NHISUnknown if ever smokedMagruder Hospital Work Phone: SexFemale (finding)[facility] Start: 05-31-2025 End: 93-01-6953Lzgxgau smoking status NHISEx-smoker (finding)[facility] HospitalNEGATED: Highlighted rowStart: NINFHistory of tobacco usePassive smokerNOWY Healthcare Functional Status XajoMuaxjjachfBropwdNpfnapdm81-16-5457Elfou score [AUDIT-C]3 02/21/2025 9:33 AM EDT Myccharlat, GenericSaint Mary's Health CenterLpgkfkmgbv09-94-6429Yxu often do you have a drink containing alcohol?Monthly or less 02/21/2025 9:33 AM EDT Mychart, Generic Monthly or lessNOTenet St. LouisUaonldvyva36-91-7685Qep many standard drinks containing alcohol do you have on a typical day?3 or 4 02/21/2025 9:33 AM EDT Mychart, Generic [address] LouisSsqukcchgx90-59-5334Nfm often do you have 6 or more drinks on 1 occasion?Less than monthly 02/21/2025 9:33 AM EDT Mychart, Generic Less than monthlyNOTenet St. LouisQfnmnmbrtv14-14-0961Zpaeycf Health Questionnaire 2 item (PHQ-2) [Reported][facility] Clinical Notes 06-13-2021 to 08-17-2025 Note Date & EmcdKjbfFjrcjiou04-59-7572 Evaluation note* Diagnosis Onset Date Resolution Status Admit Date Ex-smoker acuteOctober 2024 10:49amFacet arthritis of lumbar regionacuteOctober 2024 10:49amGERD (gastroesophageal reflux disease)acuteOctober 2024 10:49amHypercholesteremiaacuteOctober 2024 10:49amHypothyroidismacute October 2024 10:49amOsteopeniaacuteOctober 2024 10:49amTingling of right upper extremityacuteOct2024 10:49am [facility] Work Phone: 1(249) 150-778108-20-2025 NoteIn person visit Chief complaint: lowre back pain [place]: She was here with her frind Lily Mayers She has a back issue too She [...] She used to work as an insurance claims representative ROS: As above Medical History[1] Surgical History[2] Medications Ordered Prior to Encounter[3] Allergies[4] Exam; BP 158/76 (BP Location: Right arm, Patient Position: Sitting, BP Cuff Size: Adult) Pulse 75 Ht 1.626 m (5' 4 ) Wt 95.3 kg (210 lb) SpO2 95% BMI 36.05 kg/m??? Age appropriate yes family present - her sister Lily Mayers that I saw the same day [place]/AT [...] today in a separate appointment - Ms. Hodges has mostly back pain - her imaging [...] noon, in the evening, and at bedtime. ynjwmifn-cyz-yygxyzh fumarate (Multi Vitamin) 9 mg iron/15 mL liquid Take by mouth. cz-uzj-PQ-vit R-rrmonk-hdkecan 200 mcg-15 mcg- 5 mg-1 mg capsule [...] [4] Allergies Allergen Reactions Cephalexin Hives Clindamycin [place]07-31-2025 Telephone encounter Note* Telephone Encounter - EWA MCKOY - 06/01/2025 9:24 AM EDT Patient is looking to change neuro. She would like to go to [facility] Reich [facility] Jitiqemise09-57-1258 Miscellaneous Notes* Telephone Encounter - EWA MCKOY - 06/01/2025 9:24 AM EDT Patient is looking to change neuro. She would like to go to Dr [facility] at [facility] documented in this encounterSaint Mary's Health CenterKpuwqykbfx93-25-7356 Evaluation note* Diagnosis Onset Date Resolution Status Admit Date Dyspepsia acuteJuly 2024 10:16amGERD (gastroesophageal reflux disease)acuteJuly 2024 10:16amGlobus sensationacuteJuly 2024 10:16am [facility] Work Phone: 1(884) 498-728207-09-2025 History of Present illness Narrative* Zachary Aldana MD - 05/10/2025 11:13 AM EDTAssociated Problem(s): Globus sensation Symptoms unchanged with omeprazole and refer to GI. * Zcahary Aldana MD - 05/10/2025 11:13 AM EDTAssociated [...] were not included. Subjective Patient ID: Juni Hodges is a 64 y.o. female who presents [...] Ambulatory referral to Gastroenterology documented in this encounterSaint Mary's Health CenterZisdtkijug14-83-8256 Telephone encounter Note* Telephone Encounter - Zachary Aldana MD - 04/25/2025 4:41 PM EDT Would need visit and can order MRI. [facility] CenterUiitlbzgfs12-79-6086 Miscellaneous Notes* Telephone Encounter - Zachary Aldana [...] about what to do. documented in this encounterSaint Mary's Health CenterVodylgtpov85-59-8231 History of Present illness Narrative* Shaila Prabhakar LPN - 04/25/2025 4:20 PM EDT HPI: Historian of HPI: patient Juni Hodges is a 64 y.o. female who presents [...] venous duplex left; Future documented in this encounterNOTenet St. LouisPzyzmlcjua60-46-4238 Telephone encounter Note* Telephone Encounter - Ita Clemons - 04/25/2025 1:15 PM EDT Patient called and stated she finished her physical therapy about 3 weeks ago and wondered what sheshould do next. an [facility] CenterFrufdnmhih71-86-4298 Telephone encounter Note* Telephone Encounter - Zachary Aldana MD - 04/25/2025 12:59 PM EDT Unclear etiology of pain and patient needs seen to be appropriately assessed and treated. Try to schedule in office or go to urgent care. [facility] CenterMuarzhkdjq81-76-3650 Telephone encounter Note* Telephone Encounter - Karma Marshall - 04/24/2025 10:45 AM EDT Left leg is swelling and tingling just above the ankle. She is seeking direction about what to do. [facility] CenterXspliqebqj47-74-3979 History of Present illness Narrative* Zachary Aldana [...] were not included. Subjective Patient ID: Juni Hodges is a 64 y.o. female who presents [...] 2 or 3 views documented in this encounterSaint Mary's Health CenterGhshbcddrl28-68-0760 History of Present illness Narrative* Ben Turpin [...] were not included. Subjective Patient ID: Juni Hodges is a 64 y.o. female who presents [...] Orders Bilateral screening mammogram documented in this encounterSaint Mary's Health CenterOsgvrkswsu14-86-7045 Instructions* Patient Instructions* Ben Turpin NP - [...] THE NEAREST EMERGENCY DEPARTMENT.\ documented in this encounterSaint Mary's Health CenterFmxrdqbgpa88-76-9140 NotePROCEDURE: XR HIP LT 2 3V W [...] Electronically authenticated by: MAKENZIE GOLDMAN Date: 2022-04-08 17:50[facility]12-08-2021 NoteChief Complaint consultation for abdominal pain, vomiting, [...] Hyperlipidemia: Sister and Brother. Hypertension: Sister. Hypothyroidism: Sister.[facility] MemorialComment on above:Result Comment: Electronically Signed By: KINZA ARMAS, Raymond Zaidi\Date and Time Signed: 10/09/21 21:37 [id number] NotePatient: JUNI HODGES Age: 60 years Sex: Female : 1960 Associated Diagnoses: None Author: Esteban Rose Results Review Original Procedure Date 06/12/2021 Revised repeat colonoscopy interval 5 years Adenomatous polyp(s) present 1 or 2 tubular adenomas less than 10mm Adenocarcinoma present No Serrated lesion(s) present No Hyperplastic polyp(s) present [facility]08-12-2021 Note [id number]:127[facility] Evaluation noteNo assessment information availableMagruder Hospital Work Phone: Evaluation note* Diagnosis Other [...] specified hypothyroidism (CMS/HCC) documented in this encounter [facility] HealthcareEvaluation note* Diagnosis Other specified hypothyroidism (CMS/HCC)- [...] hyperlipidemia type (CMS/HCC) documented in this encounter [facility] HealthcareEvaluation note* Diagnosis Other specified hypothyroidism (CMS/HCC)- Primary Other hyperlipidemia (CMS/HCC) Multiple lung nodules on CT Cellulitis of face Cellulitis and abscess of face Other specified hypothyroidism (CMS/HCC)- Primary Age-related osteoporosis without current pathological fracture (CMS/HCC) Other hyperlipidemia (CMS/HCC) Gastroesophageal reflux disease without esophagitis- Primary Esophageal reflux Other specified hypothyroidism (CMS/HCC) Hyperlipidemia, unspecified hyperlipidemia type ([facility]/HCC) Well adult exam Routine general medical examination at a health care [facility] Age-related osteoporosis without current pathological fracture ([facility]) Multiple lung nodules on CT Osteopenia after menopause Other hyperlipidemia (CMS/HCC)- Primary Viral upper respiratory tract infection Acute upper respiratory infections of unspecified site Encounter for screening mammogram for malignant neoplasm of breast Gastroesophageal reflux disease without esophagitis Esophageal reflux documented in this encounter [facility] HealthcareEvaluation note* Diagnosis Other specified hypothyroidism- Primary Other hyperlipidemia Multiple lung nodules on CT Cellulitis of face Cellulitis and abscess of face Other specified hypothyroidism- Primary Age-related osteoporosis without current pathological fracture (CMS/HCC) Other hyperlipidemia Gastroesophageal reflux disease without esophagitis- Primary Esophageal reflux Other specified hypothyroidism Hyperlipidemia, unspecified hyperlipidemia type ([facility]) Well adult exam Routine general medical examination at a health care [facility] Age-related osteoporosis without current pathological fracture ([facility]) Multiple lung nodules on CT Osteopenia after [...] mass index (BMI) of36.0 to 36.9 in adult ([facility]) Dyslipidemia ([facility]) Other and unspecified hyperlipidemia documented in this encounter [facility] HealthcareEvaluation note* Diagnosis Other specified hypothyroidism- [...] mass index (BMI) of36.0 to 36.9 in adult ([facility]) Dyslipidemia Other and unspecified hyperlipidemia Strain of left calf muscle- Primary Left knee pain, unspecified chronicity Left knee pain, unspecified chronicity documented in this encounter [facility] HealthcareEvaluation note* Diagnosis Other specified hypothyroidism- [...] mass index (BMI) of36.0 to 36.9 in adult ([facility]) Dyslipidemia Other and unspecified hyperlipidemia Degeneration of intervertebral disc of lumbar region with discogenic back pain- Primary Gastroesophageal reflux disease without esophagitis Esophageal reflux Globus sensation Gastrointestinal malfunction arising from mental factors documented in this encounter [facility] HealthcareEvaluation note* Author Fortino Walter [facility]ored[facility] 11:18am- Dyspepsia - Globus sensation - GERD [facility] Work Phone: Evaluation note* Diagnosis Other [...] mass index (BMI) of36.0 to 36.9 in adult ([facility]) Dyslipidemia Other and unspecified hyperlipidemia Degeneration of [...] screening for malignant ne oplasm of lung acuteOctober 2024 10:49amEx-smokeracuteOctober 2024 10:49amFacet arthritis of lumbar regionacuteOctober 2024 10:49amHypercholesteremiaacute August 17, 2025 10:49amHypothyroidismacuteOctober 2024 10:49am OsteopeniaacuteOctober 2024 10:49amTingling of right upper extremityacute August 17, 2025 10:49amGERD (gastroesophageal reflux disease)inactiveOctober 2024 10:49am [facility] Work Phone: Hospital Discharge instructions Additional [...] problems. -Follow up with PCP. -Office number [phone]. [facility] Work Phone: Reason for referral (narrative)No reason for referral information availableMagruder Hospital Work Phone: Summary Purpose Family History Relationship Condition Age at Onset Recorded Date/T cam mother Hypertension Unknown DeceasedUnknownfatherChronic obstructive pulmonary diseaseUnknown Relationship Condition Age at Onset Recorded Date/T cam mother Hypertension Unknown DeceasedUnknownPulmonary edemaUnknownfatherChronic obstructive pulmonary disease Unknownpaternal grandmotherMalignant neoplasmUnknownbrotherPulmonary edema Unknown Advance Directives Advance Directive Response [...] 10:1 6am GERD (gastroesophageal reflux disease) J gayatri 2024 10:16am Globus sensation May 15, 2025 [...] (gastroesophageal reflux disease) O ctober 2024 10:49am Chief Complaint Admit Date 3m f/u August [...] right upper extremity Octobe r 2024 10:49am Additional Source Comments INFORMATION SOURCE (unrecogn ized section and content) DATE CREATED AUTHOR 05/24/2022 [facility] DATE CREATED AUTHOR AUTHOR'S ORGANIZ ATION 12/20/2022 [facility] DATE CREATED AUTHOR AUTHOR'S ORGANIZ ATION 05/14/2025 [facility] DATE CREATED AUTHOR AUTHOR'S ORGANIZ ATION 07/03/2025 [facility] DATE CREATED AUTHOR AUTHOR'S ORGANIZ ATION 07/05/2025 [facility] Care Teams (unrecognized sec tion and content) Team Status: Active Member Role Status Dates Maddison Ulrich DO Primary Care Provider Active Team Status: Active Member Role Status Dates Marlen Allan DO Attending Provider Active St art: May 31, 2025 Marlen Allan , DOOther ProviderActiveStart: May 31, 2025 Zachary Aldana , DARLEENrimary Care ProviderActiveStart: May 31, 2025 Team Status: Inactive Member Role Status Dates Maddison Ulrich DO Primary Care Provider Active S tart: August 17, 2025 End: August 17, 2025Maddison Ulrich DOAttending ProviderActiveStart: August 17, 2025 End: August 17, 2025 Team Status: Active Member Role Status Dates Zachary Aldana MD Primary Care Provider Active Team Status: Inactive Member Role Status Dates Charo Baker MD Primary Care Provider Active S tart: May 15, 2025 End: May 15, 2025Fortino Walter APRNAttentram ProviderActiveStart: May 15, 2025 End: May 15, 2025 Team Status: Active Member Role Status Dates Charo Baker MD Primary Care Provider Active Team Status: Inactive Member Role Status Dates Charo Baker MD Primary Care Provider Active S tart: December 27, 2023 End: December 27mblorene Hackett APRNAttentram ProviderActiveStart: December 27, 2023 End: December 27, 2023Team MemberRelationshipSpecialtyStart DateEnd Date Zachary Aldana MD [address] [place] [address] PCP - GeneralFamily Medicine07/27/24 Ben Turpin NP [address] [place] [address] Nurse Practitionermily Medicine07/27/24Team MemberRelationshipSpecialtyStart DateEnd Date Zachary Aldana MD [address] [place] [address] PCP - GeneralFamily Medicine07/27/24 Ben Turpin NP [address] [place] [address] Nurse Practitionermily Medicine07/27/24Team MemberRelationshipSpecialtyStart DateEnd Date Zachary Aldana MD [address] [place] [address] PCP - GeneralFamily Medicine07/27/24 Ben Turpin NP [address] [place] [address] Nurse PractitionerAugust[facility]07/27/24Team MemberRelationshipSpecialtyStart DateEnd Date Zachary Aldana MD [address] [place] [address] PCP - Generalmily Medicine07/27/24 Ben Turpin NP [address] [place] [address] [facility] Medicine07/27/24Team MemberRelationshipSpecialtyStart DateEnd Date Zachary Aldana MD [address] [place] [address] PCP - GeneralFamily Medicine07/27/24 Ben Turpin NP [address] [place] [address] Nurse Pract[facility]erA[facility] Medicine07/27/24Team MemberRelationshipSpecialtyStart DateEnd Date Zachary Aldana MD [address] [place] [address] PCP - GeneralFamily Medicine07/27/24 Ben Turpin NP [address] [place] [address] Nurse Practitionermily Medicine07/27/24Team MemberRelationshipSpecialtyStart DateEnd Date Zachary Aldana MD [address] [place] [address] PCP - Generalmily Medicine07/27/24 Ben Turpin NP [address] [place] [address] Nurse PractitionerW[facility] Medicine07/27/24Team MemberRelationshipSpecialtyStart DateEnd Date Zachary Aldana MD [address] [place] [address] PCP - Generalmily Medicine07/27/24 Ben Turpin NP [address] [place] [address] Nurse PractitionerA[facility] Hospitally Medicine07/27/24Team MemberRelationshipSpecialtyStart DateEnd Date Zachary Aldana MD [address] [place] [address] PCP - GeneralFamily Medicine07/27/24 Ben Turpin NP [address] [place] [address] Nurse Practitionermily Medicine07/27/24Team MemberRelationshipSpecialtyStart DateEnd Date Zachary Aldana MD [address] [place] [address] PCP - Generalmily Medicine07/27/24 Ben Turpin NP [address] [place] [address] Nurse PractitionerA[facility]ally Medicine07/27/24Team MemberRelationshipSpecialtyStart DateEnd Date Zachary Aldana MD [address] [place] [address] PCP - [facility] Medicine07/27/24 Ben Turpin NP [address] [place] [address] Nurse PractitionerW[facility] Medicine07/27/24Team MemberRelationshipSpecialtyStart DateEnd Date Zachary Aldana MD [address] [place] [address] PCP - Generalmily Medicine07/27/24 Ben Turpin, YENIFER [address] [place] [address] Nurse PractitionerW[facility] Medicine07/27/24Team MemberRelationshipSpecialtyStart DateEnd Date Shaikh Chapin MD PCP - [facility] Zachary Aldana MD PCP - Generalmily Medicine07/27/24 Ben Turpin NP Nurse PractitionerAugust[facility]07/27/24Team MemberRelationshipSpecialtyStart DateEnd Date Shaikh Chapin MD PCP - GeneralInternal Medicine01/03/ Zachary Aldana MD PCP - [facility]07/27/24 Ben Turpin NP Nurse PractitionerAugust[facility]07/27/24 Team Status: Active Member Role/Relationship Status Dates Charo Baker MD Primary Care Provider Active Team Status: Inactive Member Role/Relationship Status Dates Maddison Ulrich DO Primary Care Provider Active S tart: August 17, 2025 End: August 17, 2025Maddison Ulrich DOAttending ProviderActiveStart: August 17, 2025 End: August 17, 2025 Team Status: Inactive Member Role/Relationship Status Dates Charo Baker MD Primary Care Provider Active S tart: August 30, 2025 End: August 30, 2025Fortino Walter APRNAttentram ProviderActiveStart: August 30, 2025 End: August 30, 2025 Goals (unrecognized section and content) Goals may be documented in a n alternate sectionGoals may be documented in an alternate sectionGoals may be documented in an alternate sectionGoals may be documented in an alternate sectionGoals may be documented in an alternate section Reason for Visit (unrecogniz ed section and content) ReasonOnset DateCommentsMed Asitkg4211/28/2024ReasonCommentsFollow-upReason CommentsBack PainPossible sciatic pain. Starts in lower back and shoots up back and down legGERDReasonCommentsFollow-upUrgent care f/up for leg swelling.Back PainSciatica, finished pt still having issues FOR RECORDS PERTAINING TO [...] BE BASED ON THE PRIMARY CLINICAL RECORDS. [facility], [facility]. provides no warranty or guarantee of the accuracy or completeness of information in this document.
--- NOTE | 2025-09-06 09:40 | NM_ITS ---
Patient Name: JUNI HODGES MR#: [id number] : 1960 Exam Date: 09/06/2025 Ordering Doctor: DAMIÁN ULRICH . RADIOLOGY REPORT PROCEDURE: NM CINDY PERF SPECT REST STR COMPARISON: None. INDICATIONS: ATYPICAL CHEST PAIN, FAMILY HISTORY TECHNIQUE: Exam Description: Stress/Rest one day protocol gated SPECT Rest Imagin.2 mCi Tc-99m Cardiolite IV on 09-06-2025 Stress Imaging 30.5 mCi Tc-99m Cardiolite IV on 09-06-2025 Exercise Protocol: Vick Heart Rate (bpm): Rest: 75 Max: 162 PMHR: 104 Blood Pressure: Rest: 158/88 Max: 240/58 Exercise Time: Minutes: 4 Seconds: 22 Stage Reached: Stage: 2 Mets 7.0 Symptoms: Rest and peak stress ECG findings were pending, and the exercise portion of the study was pending per attending physician [facility]. For more details, please see separate cardiac stress test report. FINDINGS: QUALITY OF STUDY: Good PERFUSION DEFECT: LOCATION: Basal and mid anterolateral SIZE: Small SEVERITY: Mild TYPE: Partially reversible WALL MOTION: Normal wall motion LV SIZE: 67 mL TID / TCD: 0.8 LVEF: Calculated EF 74%. SUMMARY: Myocardial perfusion imaging study is abnormal CONCLUSION: 1. Myocardial perfusion is abnormal with soft tissue attenuation 2. There is a basal and mid anterolateral perfusion defect that is partially reversible and suggestive of ischemia 3. Soft tissue attenuation reduces the accuracy of the study 4. Global left ventricular systolic function is hyperdynamic; EF 74% 5. No significant transient ischemic dilatation Dictated by: Ángela Malone M.D. on 09/06/2025 at 14:39 Approved by: Ángela Malone M.D. on 09/06/2025 at 14:43
--- NOTE | 2025-09-06 11:58 | PC.NURSE ---
Patient tolerated Cardiolyte Treadmill stress test without problems. SOB with exertion resolved at rest. Increased BP with exercise without symptoms. Patient asymptomatic leaving stress lab.
--- NOTE | 2025-09-08 13:22 | PM.STRESS ---
Stress Test Stress Test Allergies Allergy/AdvReac Type Severity Reaction Status Date / Time No Known Drug Allergies Allergy Verified 10/21/24 01:32 Requesting physician: LUISA LEWIS Procedure: Treadmill nuclear stress test General Information: Reason for Stress Test: [Chest pain] Cardiac History and Risk Factors: [Family history of CAD, hyperlipidemia, obesity] Resting 12 - Lead Electrocardiogram: Resting twelve-lead EKG showed normal sinus rhythm, heart rate 72 bpm, normal EKG. Resting blood pressure 158/88 mmHg. The patient was exercised according to standard Vick protocol protocol achieving 4 minutes and 22 seconds consistent with stage II, achieving 7 METS and peak heart rate of 162 bpm which represents 104% of age-predicted maximum heart rate and peak blood pressure of 240/58 mmHg. Exercise was terminated secondary to achievement of target heart rate. Patient did not experience any chest, neck, jaw, or arm discomfort throughout the test. She became short of breath at peak exercise. Patient was monitored for a total of 6 minutes into recovery phase with heart rate back to 96 bpm and blood pressure to 168/68 mmHg. EKG at peak exercise showed mild less than [address] depression in leads V4 to V6 resolved quickly during recovery phase. There was no arrhythmias Stress Test: Protocol: [Vick] Exercise Capacity: [Mildly reduced] Blood Pressure Response: [Resting hypertension with exaggerated hypertensive response to exercise] Rhythm: [No arrhythmia] ST - Response: [Mild less than [address] depression] Patient Response: [No chest pain, patient had shortness of breath at peak exercise] Interpretation: Maximal stress test achieving 104% of age-predicted maximum heart rate Mildly reduced exercise capacity Resting hypertension with exaggerated hypertensive response to exercise This EKG treadmill stress test is negative for exercise-induced ischemic symptoms, EKG changes, or arrhythmias Terrazas score is 4 consistent with moderate cardiac risk Nuclear myocardial perfusion stress images result is reported separately Hortencia Henry MD, FACC
== END 2025-09-06 09:17 | disposition home or self-care (01) ==
LOC: NM 09:17
PROVIDERS: PCP Family Medicine; Visit Provider Family Medicine
DX: R07.89 Other chest pain (principal); Z87.891 Personal history of nicotine dependence; E78.00 Pure hypercholesterolemia, unspecified
CPT/HCPCS: 78452; 93017; A9500

== ENCOUNTER 2025-09-07 08:50 | Outpatient (OUT) | payer MEDICARE, OTHER, SELFPAY ==
--- OUTSIDE RECORDS SUMMARY | 2025-09-07 08:53 | XMS_ITS | Encounter Summary ---
Author Organization [facility] Address [address] [facility] [place] [address] Care Team Providers Care Rawhide Trimmer Name Role Phone Shaikh CHANDA Chapin Primary Care Provider [phone] Zachary Faulkner MD Primary Care Provider [phone] Farnaz Turpin NP Unavailable [phone] Encounter Details DateTypeDepartmentCare Team (Latest Contact Info)Lrmtlawndfl35/02/2024Clinisync Result Encounter [facility] Unsolicited Shaikh Chapin MD [address] [place] [address] Social History Tobacco UseTypesPacks/DayYears UsedDateSmoking Tobacco: NeverPassive Smoke Exposure: NeverSmokeless Tobacco: NeverAlcohol UseStandard Drinks/WeekComments Yes0 (1 standard drink = 0.6 oz pure alcohol)[id number] Health Literacy AnswerDate RecordedHow often do you [...] relatives?Twice a week02/21/2025How often do you attend oriental orthodox or congregational services?More than 4 times per year02/21/2025Do you belong to any clubs or organizations such as oriental orthodox groups, unions, fraternal or athletic groups, or school groups?Yes02/21/2025How often do you attend meetings of the clubs or organizations you belong to?1 to 4 times per year02/21/2025re you , , , , never , or living with a partner?Arpapre6702/21/2025UDIT-CAnswerDate RecordedQ1: How often do you have a [...] heating?Not hard at all02/21/2025PHQ-2AnswerDate RecordedPatient Health Questionnaire-2 Grrfb057Hunger Vital SignAnswerDate RecordedWithin the past 12 months, [...] were you homeless or living in a intermediate (including now)? No02/21/2025CommentsUnknownSex and Gender InformationValueDate Recorded Sex Assigned at BirthNot on fileLegal PvmXmpzis21/15/2023 9:45 PM EDTGender IdentityNot on fileSexual OrientationNot on filedocumented as of this encounter Functional Status * AUDIT-C ScoreAnswerDate of MgrjopyvodQeviah978/22/2025 9:33 AM EDLenore, Generic * Q1: How [...] drinks on one occasion?AnswerDate of AssessmentAuthorLess than pbflwjt1402/21/2025 9:33 AM Dominik, Generic * Over the past 2 weeks, how often have you been bothered by any of the following problems?QuestionAnswerDate of AssessmentAuthorLittle interest or pleasure in doing thingsNot at all02/02/2024 11:22 AM Marige Bhatti MA Feeling down, depressed, or hopelessNot at all02/02/2024 11:22 AM Margie Bhatti MAPatient Health Questionnaire-2 Rilod720 11:22 Margie Strauss MA documented as of this encounter Plan of Treatment Not on file documented as of this encounter Procedures Procedure NamePriorityDate/TimeAssociated DiagnosisCommentsXR CHEST 2V02/02/2024 1:08 PM EDT documented in this encounter Results * XR CHEST 2V (02/02/2024 1:08 PM EDT)Anatomical RegionLateralityModalityOther Specimen (Source)Anatomical Location / LateralityCollection Method / Volume Collection TimeReceived Time02/02/2024 1:08 PM EDT Narrative 02/02/2024 1:10 PM EDT [facility] ?[address] ? [place], [facility] ?XRay Report ? Signed ? Patient: CATHERINE HODGES ?MR#: [id number] ?? : 1960 ?Acct:[id number] ?? Age/Sex: 63 / F ?ADM Date: 02/02/24 ?? Loc: RAD ? Attending Dr: Shaikh Tavares Oliver ? Ordering Physician: Shaikh Benito Chapin ?? Date of Service: 02/02/24 ?? Procedure(s): XR chest 2V ?? Accession Number(s): [id number] ? cc: Shaikh Benito Chapin ? [facility] ? [address] [place] [address] ? [place] [address] ? Patient Name: ?? CATHERINE HODGES ? MRN: [facility]:[id number] ? date: 1960 ?Sex: F ?? Assigned Patient Location: RAD ?? Current Patient Location: RAD ?? Accession/Order Number: [id number] ?? Exam Date: 02/02/2024 ??12:22 ?Report Date: [...] 1310 ? DD/ 1308 ? TD/TT: ? Residential Treatment Staff: Procedure Note Radiology, Radiologist, MD - 02/02/2024 [place] [address] XRay Report Signed Patient: CATHERINE HODGES JMR#: [id number] : 1960cct:[id number] Age/Sex: 63 / FADM Date: 02/02/24 Loc: [facility] Attending Dr: Shaikh Tavares Oliver Ordering Physician: Shaikh Benito Chapin Date of Service: 02/02/24 Procedure(s): XR chest 2V Accession Number(s): [id number] cc: Shaikh Benito Chapin The [place] [address] Patient Name: CATHERINE HODGES MRN: [id number] date: 1960 Sex: F Assigned Patient Location: [facility] Current Patient Location: [facility] Accession/Order Number: [id number] Exam Date: 02/02/2024 12:22 Report Date: 02/02/2024 [...] M.D. Signed By:02/02/24 1310 DD/ 1308 TD/TT: Residential Treatment Staff: Authorizing ProviderResult TypeResult StatusShdavina Chapin MDCLINISYNC IMAGING Final Result documented in this encounter Visit Diagnoses Not on filedocumented in this encounter Care Teams Team MemberRelationshipSpecialtyStart DateEnd Date Shaikh Chapin MD PCP - GeneralInternal Medicine Zachary Faulkner MD [address] [place] [address] PCP - GeneralFamily Medicine07/27/24 Farnaz Turpin NP Nurse PractitionerFamily Medicine07/27/24documented as of this encounter
--- OUTSIDE RECORDS SUMMARY | 2025-09-07 08:53 | XMS_ITS | Clinical Summary ---
Author Organization [facility] Address [address] [facility] [place] [address] Care Team Providers Care Unit Support Representative Name Role Phone Zachary Faulkner MD Primary Care Provider [phone] Farnaz Hoffmann REFRIGERATION HOUSEMAN Unavailable [phone] Allergies Active AllergyReactionsCriticalityNoted DateCommentsClindamycinHivesMedium 01/04/20247094PqvqwfzywfQhgwkHuedpc41/04/2024 Medications MedicationSigDispense QuantityRefillsLast FilledStart DateEnd DateStatus atorvastatin [...] tablet 5Active Active Problems ProblemNoted DateDiagnosed DateGlobus drliwcifr11/09/2025 Assessment & Plan (05/10/2025 11:13 AM EDT): [...] AM EDT): Weight loss indicated. Gastroesophageal reflux gdyedfi0702/15/2024 Assessment & Plan (05/10/2025 11:13 AM EDT): [...] to elevated TSH on previous lab measurement Dmkgumjnkloy15/04/2024 Assessment & Plan (02/23/2025 11:00 AM EDT): [...] goal Calculus of gallbladder without cholecystitis without avqatbiarhw79/04/2024 Multiple lung nodules on CT01/04/2024 Assessment & Plan (05/17/2024 1:19 PM EDT): Noted on CT chest 12/2022 - Will repeat now as more than a year to ensure stability. Former smoker - about 20 pack year smoking hx. Assessment & Plan (01/04/2024 2:46 PM EST): Stable in CT chest 12/2022 - repeat needed in 2023 Former smoker. Former sfjnkc4101/04/2024 Resolved Problems ProblemNoted DateDiagnosed DateResolved DateViral upper respiratory tract vxdauzoww47/ Assessment & Plan (11/30/2024 1:25 PM EST): [...] both ears without spontaneous rupture of tympanic entgftheb04/Wheezing-associated respiratory jsqbnpkbq90Respiratory illness with fever/ Zfwvnabwf45/ellulitis of face Assessment & Plan (01/04/2024 2:47 PM EST): ED visit for it on 12/27 - resolved now. Using bactrim DS No pain, erythema noted today on exam Osteopenia after cykcqfunu84/ Encounters DateTypeDepartmentCare FkwdNchtywrvhbu00/11/2025Refill [facility] [address] [place] [address] Zachary Faulkner MD Chronic bilateral low back pain with right-sided sciaticafrom Last 3 Months Immunizations ImmunizationAdministration DatesNext DueInfluenza, Seasonal, Quadrivalent, Lehxrgjeez41/23/2023Influenza, injectable, hprhxlyhimpf20/03/2020,08/10/2018 Influenza, injectable, quadrivalent, preservative free09/16/2022,08/19/2021, 08/21/2017Influenza, seasonal, eabxcikgac28/16/3769PMNU-KHU-1 (COVID-19) vaccine, mRNA, spike protein, LNP, PF, daysi-sucrose, 30 mcg/0.3 mL08/24/2023 Zoster, Ddestimdcjo00/07/2023,02/04/2023 Family History Medical HistoryRelationNameCommentsRespiratory illnessFathercause of DiabetesMotherHeart diseaseMotherHypertensionMotherRespiratory illnessMother cause of qvnnwTxyibkjzZqbqRcisdzXlsbcvwvYslirpcu1UenqckjaRgberGmgbcjMcsxqpjy NkuyjcCzqiborgFzkxwTaqucFbkqgcf8ElaGmagw Social History Tobacco UseTypesPacks/DayYears UsedDateSmoking Tobacco: NeverPassive Smoke Exposure: NeverSmokeless Tobacco: Never Tobacco Cessation:Counseling Given: Not Answered Alcohol UseStandard Drinks/WeekCommentsYes0 (1 standard drink = 0.6 oz pure alcohol)NDHXVAMNMAOA7410 Health LiteracyAnswerDate RecordedHow often do you need [...] relatives?Twice a week02/21/2025How often do you attend judaism or jew services?More than 4 times per year 02/21/2025Do you belong to any clubs or organizations such as judaism groups, unions, fraternal or athletic groups, or school groups?Yes02/21/2025How often do you attend meetings of the clubs or organizations you belong to?1 to 4 times per year02/21/2025re you , , , , never , or living with a partner?Rwwefsm6402/21/2025UDIT-CAnswerDate RecordedQ1: How often do you have a drink containing alcohol?Monthly or less02/21/2025Q2: How many drinks containing alcohol do you have on a typical day when you are drinking?3 or Q3: How often do you have six or more drinks on one occasion?Less than kcqxjtn7702/21/2025Overall Financial Resource Strain (CARDIA)AnswerDate RecordedHow hard is it for you to pay for the very basics like food, housing, medical care, and heating?Not hard at all02/21/2025PHQ-2AnswerDate Recorded Patient Health Questionnaire-2 Judlj506Hunger Vital SignAnswerDate RecordedWithin the past 12 months, [...] you homeless or living in a senior living (including now)?No02/21/2025CommentsUnknownSex and Gender InformationValueDate RecordedSex Assigned at BirthNot on fileLegal SexFemale 01/14/2023 9:45 PM EDTGender IdentityNot on fileSexual OrientationNot on file Last Filed Vital Signs Vital SignReadingTime TakenCommentsBlood Gomeehxh106/7207 10:50 AM EDT Qhucf411205/10/2025 10:50 AM WDHTfidcmywuwi23.4 ??C (95.7 ??F)05/10/2025 10:50 AM EDTRespiratory Kfzi897705/10/2025 10:50 AM EDTOxygen Mdazazgdnl55%05/10/2025 10:50 AM EDTInhaled Oxygen Concentration--Vlcsow193 kg (224 lb)05/10/2025 10:50 AM EDT Libzoh143.1 cm (5' 5 )05/10/2025 10:50 AM EDTBody Mass Index37.28005/10/2025 10:50 AM EDT Plan of Treatment Health MaintenanceDue DateLast DoneCommentsCT Tdpbluzjypgv1959FIT-DNA 1960FIT1960FOBT1960 6746Wcheaxjcxbudg1959Pap Smear1980 HPV/Wrnxfb4310/03/1989Pneumococcal Vaccine: 65+ Years (1 of 1 - PCV)2009 COVID-19 Vaccine ( season), 03/25/2022, 09/10/2021, Additional history existsInfluenza Vaccine (#1)/, 08/24/2023, 09/16/2022, Additional history existsCervical Cancer Screening 11/30/2025Postponed from 1989 (Patient Refused)Gvpekdvlt47/14/2026 12/16/2024, 9287Nsyyvydexai97/11/203108/09/2021, 11/02/2020olorectal Cancer Pltgxmcfd66/11/2031 Procedures Procedure NamePriorityDate/TimeAssociated DiagnosisCommentsMM TOMOSYNTHESIS SCREENING BI12/16/2024 11:30 AM EST from Last 3 Months or Most Recently Relevant to Health Maintenance Results * MM TOMOSYNTHESIS SCREENING BI (12/16/2024 11:30 AM EST)Anatomical Region LateralityModalityOtherSpecimen (Source)Anatomical Location / Laterality Collection Method / VolumeCollection TimeReceived Time12/16/2024 11:30 AM EST Narrative 12/16/2024 11:31 AM EST [facility] ?[address] ? [place] [address] ? Mammography Report ? Signed ? Patient: HODGES,CATHERINE J ?MR#: [id number] ?? : 1960 ?Acct:[id number] ?? Age/Sex: 64 / F ?ADM Date: 02/13/25 ?? Loc: MAMMO ? Attending Dr: FARNAZ HOFFMANN ? Ordering Physician: SHUN,FARNAZ ?Results: ? Date of Service: 12/15/24 ?Follow Up: ? Procedure(s): MM tomosynthesis screening BI ?? Accession Number(s): [id number] ? cc: SHUN,FARNAZ ? Patient Name: ? CATHERINE HODGES ? MR#: [id number] ? : 1960 ? Exam Date: 12/15/2024 [...] at age ??69. ? LOCATION: ? [facility] ? BREAST COMPOSITION: ? There [...] ?12/16/241130 ? DD/ 1130 ? TD/TT: ? Contact Lens Manufacturer: Procedure Note Radiology, Radiologist, MD - 12/16/2024 [place] [address] Mammography Report Signed Patient: CATHERINE HODGES JMR#: [id number] : 1960cct:[id number] Age/Sex: 64 / FADM Date: 12/15/24 Loc: MAMMO Attending Dr: FARNAZ HOFFMANN Ordering Physician: Jennifer HOFFMANNults: Date of Service: 12/15/24Follow Up: Procedure(s): MM tomosynthesis screening BI Accession Number(s): [id number] cc: FARNAZ HOFFMANN Patient Name: CATHERINE HODGES MR#: [id number] : 1960 Exam Date: 12/15/2024 Ordering Doctor: FARNAZ HOFFMANN RADIOLOGY REPORT PROCEDURE: MM TOMOSYNTHESIS SCREENING BI COMPARISON: MM TOMOSYNTHESIS SCREENING BI, 10/06/2023. MG MAMM ONGBUR3A MEKA CAD, 09/24/2022. MG MAMM SCREEN 3D MEKA CAD, 04/16/2021. MG MAMM BILSCRN W CAD DIG, 05/31/2013. INDICATIONS: Screening Calculator Name NCI Breast Cancer Risk Assessment Tool 5 Year Breast Cancer Risk 1.60% Lifetime Breast Cancer Risk 6.10% Personal Breast Cancer No Personal Ovarian Cancer No Treatments None Family Cancers Grandmother-paternal with breast cancer at age 70. LOCATION: [facility] BREAST COMPOSITION: There are scattered [...] M.D. Signed By:12/16/24 1131 DD/ 1130 TD/TT: Contact Lens Manufacturer: Authorizing ProviderResult TypeResult StatusBrittjudy Hoffmann NPCLINISYNC IMAGINGFinal Result from Last 3 Months or Most Recently Relevant to [place] [id number] Care Teams Team MemberRelationshipSpecialtyStart DateEnd Date [facility], Zachary, MD [address] [place] [address] PCP - GeneralFamily Medicine07/27/24 Farnaz Hoffmann NP Nurse PractitionerFamily Medicine07/27/24
--- OUTSIDE RECORDS SUMMARY | 2025-09-07 08:53 | XMS_ITS | Clinical Summary ---
Author Organization [facility] Address [address] [place] [address] Care Team Providers Care Sewage Disposal Engineer Name Role Phone Zachary Faulkner MD Primary Care Provider [phone] Allergies Active AllergyReactionsCriticalityNoted DateCommentsCephalexinHivesMedium 01/04/20243754QfhnnxhbppnGvdmuTnpgef11/04/2024 Medications MedicationSigDispense QuantityRefillsLast FilledStart DateEnd DateStatus kfmuznuu-zqs-hemsqdc fumarate (Multi Vitamin) 9 mg iron/15 mL [...] acid/epa (FISH OIL ORAL) Take by mouth.Active pv-ysk-BA-vit C-saespz-qnvtyuv 200 mcg-15 mcg- 5 mg-1 mg capsule Take by mouth.Active Encounters DateTypeDepartmentCare JqxaKefdhhweceq78/20/2025 1:15 PM EDTOffice Visit [facility] [address] [place] [address] Josh Bahena MD Facet arthropathy, lumbar (Primary Dx)06/21/2025 - 06/21/2025 11:59 PM EDT Hospital Encounter [facility] Radiology External Films [address] [place] [address] Discharge Disposition: Home or Self Care (01)06/20/2025 - 06/20/2025 11:59 PM EDTHospital Encounter [facility] Radiology External Films [address] [place] [phone] Discharge Disposition: Home or Self Care ()from Last 3 Months Family History Medical HistoryRelationNameCommentsClotting disorderFather's SisterBRANDON GADBERRY MY SONDiabetesMotherJEANNE HERMANRelationNameStatusCommentsFather's SisterBRANDON GADBERRY MY SONAliveMotherJEANNE HERMANAlive Social History Tobacco UseTypesPacks/DayYears UsedDateSmoking Tobacco: FormerCigarettesQuit: 05/05/2007Smokeless Tobacco: Never Tobacco Cessation:Counseling Given: Not Answered Alcohol UseStandard Drinks/WeekCommentsYes1 (1 standard drink = 0.6 oz pure alcohol)PHQ-2AnswerDate RecordedPatient Health Questionnaire-2 Itnft851 CommentsUnknownSex and Gender InformationValueDate RecordedSex Assigned at IibsdUyhtvq54/17/2025 12:55 PM EDTLegal RduVjaoyh15/01/2025 9:38 AM EDTGender QxssljmnCwtzxt69/17/2025 12:55 PM EDTSexual OrientationChoose not to disclose 06/18/2025 12:55 PM EDT Last Filed Vital Signs Vital SignReadingTime TakenCommentsBlood Wlexnwye532/7608 1:05 PM EDT Hmvru292806/21/2025 1:05 PM EDTTemperature--Respiratory Rate--Oxygen Txzxjdxwmt44% 06/21/2025 1:05 PM EDTInhaled Oxygen Concentration--Lhmecy29.3 kg (210 lb) 06/21/2025 1:05 PM ABTRxwkmv542.6 cm (5' 4 )06/21/2025 1:05 PM EDTBody Mass Index36.05006/21/2025 1:05 PM EDT Plan of Treatment Health MaintenanceDue DateLast DoneCommentsCT Uvwgfkxtxgwl1959FIT-DNA 1959FIT1959FOBT1959Medicare Annual Wellness (AWV)1960 Medicare Initial Physical (IPPE)1960 9532Jzzkhqhagrydj1959Pap Smear 1980Adult Lnmuspn3410/03/1981Cervical Cancer Frminudhl49/02/1989HPV/Cotest 10/03/19894118Mhtrvdixi89/02/1999Pneumococcal Vaccine: 50+ Years (1 of 1 - PCV) 2009COVID-19 Vaccine ( season), 08/24/2023, 08/23/2022, Additional history existsInfluenza Vaccine (#1), 08/24/2023, 09/16/2022, Additional history existsDepression Ccaggfzlo49/20/2026 06/21/2025Fall Risk Ybjwiwqde22/2652Efhzjklftdy39/11/203108/09/2021 Colorectal Cancer Ppjowbcla36/11/2031Zoster BetnxocbBauwsdtrc29/07/2023, 02/04/2023HIB VaccinesAged OutNo longer eligible based on [...] Procedures Procedure NamePriorityDate/TimeAssociated DiagnosisCommentsXR TRANSFER OF OUTSIDE LSHUWEoijxrl43/20/2025 12:00 AM EDT XR TRANSFER OF OUTSIDE CCTHOMeshmau76/19/2025 12:00 AM EDT from Last 3 Months [...] Number IMAGING from Last [address] [place] [id number] Care Teams Team MemberRelationshipSpecialtyStart DateEnd Date Zachary Faulkner MD [address] [place] [address] [facility]
--- NOTE | 2025-09-07 08:54 | CA_ITS ---
Patient Name: JUNI HODGES MR#: [id number] : 1960 Exam Date: 09/07/2025 Ordering Doctor: DAMIÁN ULRICH . ECHOCARDIOGRAM REPORT PROCEDURE: CA ECHO DOPPLER COMPLETE INDICATIONS: Atypical chest pain COMPARISON: None. DESCRIPTION: COMPLETE ECHOCARDIOGRAM Real-time transthoracic echocardiography with 2D, M-mode, spectral and color flow Doppler performed. QUALITY: Technical quality was good. LEFT VENTRICLE: Normal chamber size. Moderate concentric left ventricular hypertrophy. Global left ventricular systolic function is normal. LV EF: Estimated left ventricular ejection fraction is 55-60%. DIASTOLIC: Normal diastolic function. ATRIAL SEPTUM: LEFT ATRIUM: Normal chamber size. RIGHT ATRIUM: Normal chamber size. RIGHT VENTRICLE: Normal chamber size. Normal right ventricular systolic function. TRICUSPID VALVE: Normal mobility and thickness. No stenosis with trivial regurgitation. No evidence of pulmonary hypertension. RVSP 30 mmHg MITRAL VALVE: Mildly thickened with normal mobility. No evidence of mitral valve stenosis. Mild mitral annular calcification. Trivial mitral regurgitation. AORTIC VALVE: Normal trileaflet appearance. No visible sclerosis. Normal leaflet mobility. No evidence of aortic valve stenosis. No aortic regurgitation. AORTIC ROOT: Normal diameter and appearance, measuring 3.1 cm. The ascending aorta is normal in size measuring 3.1 cm. PULMONIC VALVE: Normal thickness and mobility. No stenosis. Trivial regurgitation. PERICARDIUM: Trivial anterior pericardial effusion. IVC: Collapses with inspiration. Normal size. PLEURA: CONCLUSION: 1. Moderate concentric left ventricular hypertrophy with normal systolic function. Estimated LVEF is 55 to 60%. 2. Normal right ventricular size and systolic function. 3. Normal diastolic function. 4. No significant valvular dysfunction. 5. Normal right-sided pressures. 6. Trivial anterior pericardial effusion. Adult Echocardiography Procedure Report Left Ventricle LVEDD (3.7 - 5.6 cm): 4.22 cm LVESD (2.2 - 4.0 cm): 2.91 cm LVIVS thickness (0.6 - 1.2 cm): 1.43 cm LVPW thickness (0.5 - 1.0 cm): 1.42 cm e': 0.09 m/s E - e': 9.22 LVOT Max Gradient: 5.10 mm[Hg] LVOT Area (cm2): 1.13 m/s Peak Velocity (LVOT): 1.13 m/s Mean Velocity (LVOT): 0.80 m/s LVOT Diameter 1.96 cm Left Ventricular Ejection Fraction: 55-60 % Left Atrium LA Volume Index (2D A2C): 25.92 ml/m2 Left Atrium Systolic Dimension: 3.71 cm Mitral Valve MV E to A Ratio: 0.72, 0.83 Mitral Valve A-Wave Peak Velocity: 1.08 m/s Mitral Valve E-Wave Peak Velocity: 0.83 m/s Right Ventricle RV Internal Diastolic Dimension: 3.19 cm Aorta AO Root Diam: 3.12 cm Ascending Ao Diam: 3.08 cm Aortic Valve AoV Area (Peak Toribio): 2.07 cm2, 2.07 cm2 AoV Area (VTI): 2.02 cm2, 2.02 cm2 Peak Velocity(Antegrade Flow): 1.64 m/s Peak Gradient(Antegrade Flow): 10.74 mm[Hg] Mean Velocity(Antegrade Flow): 1.14 m/s Mean Gradient(Antegrade Flow): 5.89 mm[Hg] Velocity Time Integral: 37.63 cm Tricuspid Valve Peak Velocity (Regurgitant Flow): 2.44 m/s, 2.60 m/s, 2.35 m/s Pulmonic Valve Mean Gradient: 2.77 mm[Hg], 3.17 mm[Hg] Mean Velocity: 0.77 m/s, 0.84 m/s Peak Velocity: 1.15 m/s Peak Gradient: 5.09 mm[Hg], 5.42 mm[Hg] Right Atrium Right Atrium Systolic Pressure: 33.70 ml, 33.70 ml Dictated by: Bryan Farley M.D. on 09/07/2025 at 19:47 Approved by: Bryan Farley M.D. on 09/07/2025 at 19:53
--- OUTSIDE RECORDS SUMMARY | 2025-09-07 08:54 | XMS_ITS | Encounter Summary ---
Author Organization [facility] Address [address] [facility] [place] [address] Care Team Providers Care Engine Repairer Name Role Phone Shaikh CHANDA Chapin Primary Care Provider [phone] Zachary Faulkner MD Primary Care Provider [phone] Farnaz Turpin NP Unavailable [phone] Encounter Details DateTypeDepartmentCare Team (Latest Contact Info)Rrcbladrazn92/23/2024Clinisync Result Encounter [facility] External Department Unsolicited Shaikh Chapin MD [address] [place] [address] Social History Tobacco UseTypesPacks/DayYears UsedDateSmoking Tobacco: NeverPassive Smoke Exposure: NeverSmokeless Tobacco: NeverAlcohol UseStandard Drinks/WeekComments Yes0 (1 standard drink = 0.6 oz pure alcohol)AORMBMLCZNHK8020 Health Literacy AnswerDate RecordedHow often do you [...] relatives?Twice a week02/21/2025How often do you attend confucianist or mandaeism services?More than 4 times per year02/21/2025Do you belong to any clubs or organizations such as confucianist groups, unions, fraternal or athletic groups, or school groups?Yes02/21/2025How often do you attend meetings of the clubs or organizations you belong to?1 to 4 times per year02/21/2025re you , , , , never , or living with a partner?Qjcyanl4902/21/2025UDIT-CAnswerDate RecordedQ1: How often do you have a [...] heating?Not hard at all02/21/2025PHQ-2AnswerDate RecordedPatient Health Questionnaire-2 Elecr944Hunger Vital SignAnswerDate RecordedWithin the past 12 months, [...] were you homeless or living in a long term (including now)? No02/21/2025CommentsUnknownSex and Gender InformationValueDate Recorded Sex Assigned at BirthNot on fileLegal FkcJtbonq70/15/2023 9:45 PM EDTGender IdentityNot on fileSexual OrientationNot on filedocumented as of this encounter Functional Status * AUDIT-C ScoreAnswerDate of XwwqdskwshAjiagn032/22/2025 9:33 AM EDTMychart, Generic * Q1: How [...] drinks on one occasion?AnswerDate of AssessmentAuthorLess than rriaqhs5702/21/2025 9:33 AM EDTMychart, Generic documented as of this encounter Plan of Treatment Not on file documented as of this encounter Procedures Procedure NamePriorityDate/TimeAssociated DiagnosisCommentsXR DEXA AXIAL AERZZQRK61/23/2024 10:18 AM EDT documented in this encounter Results * XR DEXA AXIAL SKELETON (05/24/2024 10:18 AM EDT)Anatomical RegionLaterality ModalityOtherSpecimen (Source)Anatomical Location / LateralityCollection Method / VolumeCollection TimeReceived Time05/24/2024 10:18 AM EDT Narrative 05/24/2024 10:20 AM EDT [facility] ?[address] ? [place] [address] ?XRay Report ? Signed ? Patient: HODGES,CATHERINE J ?MR#: [id number] ?? : 1960 ?Acct:[id number] ?? Age/Sex: 63 / F ?ADM Date: 05/24/24 ?? Loc: CT ? Attending Dr: Shaikh Tavares Oliver ? Ordering Physician: Shaikh Benito Chapin ?? Date of Service: 05/24/24 ?? Procedure(s): XR DEXA axial skeleton ?? Accession Number(s): [id number] ? cc: Shaikh Benito Chapin ? [facility] ? [address] [facility] [place] ? [place] [address] ? Patient Name: ?? CATHERINE HODGES ? MRN: [facility]:[id number] ? date: 1960 ?Sex: F ?? Assigned Patient Location: CT ?? Current Patient Location: CT ?? Accession/Order Number: [id number] ?? Exam Date: 05/24/2024 ??09:10 ?Report Date: [...] and treatment of osteoporosis. Osteoporos ?? Int. 2021;33(10):7256-9954. doi: 10.1007/z16511-413-87210-e. Epub 2021 ? 28. Erratum in: Osteoporos Int. 2021May 29;: PMID: 33434866; PMCID: ?? [id number]. ? Electronically authenticated by: SHAHID ??ODESSA ?? Date: 05/24/2024 ??10:18 ? Dictated By: ?Shahid Molina M.D. ? Signed By: ?05/24/24 1020 ? DD/ 1018 ? TD/TT: ? Bone Drier: Procedure Note Radiology, Radiologist, MD - 05/24/[address] [address] XRay Report Signed Patient: CATHERINE HODGES JMR#: [id number] : 1960cct:[id number] Age/Sex: 63 / FADM Date: 05/24/24 Loc: CT Attending Dr: Shaikh Tavares Oliver Ordering Physician: Shaikh Benito Chapin Date of Service: 05/24/24 Procedure(s): XR DEXA axial skeleton Accession Number(s): [id number] cc: Shaikh Benito Chapin The [address] [address] Patient Name: CATHERINE HODGES MRN: [id number] date: 1960 Sex: F Assigned Patient Location: CT Current Patient Location: CT Accession/Order Number: [id number] Exam Date: 05/24/2024 09:10 Report Date: 05/24/2024 [...] 10-year hip fracture risk >= 3% or r47-zyyz major osteoporosis-related fracture risk >= 20% (i.e., [...] to prevention and treatment of osteoporosis.Osteoporos Int. 2021;33(10):7429-1926. doi: 10.1007/w82932-733-80194-q. Ep. Erratum in: Osteoporos Int. 2021May 29;: PMID: [id number]; PMCID: [id number]. Electronically authenticated by: SHAHID MOLINA Date: 05/24/2024 10:18 Dictated By: Shahid Molina M.D. Signed By:05/24/24 1020 DD/ 1018 TD/TT: Bone Drier: Authorizing ProviderResult TypeResult StatusShaikh Tavares MDCLINISYNC IMAGING Final Result documented in this encounter Visit Diagnoses Not on filedocumented in this encounter Care Teams Team MemberRelationshipSpecialtyStart DateEnd Date Shaikh Chapin MD PCP - GeneralInternal Medicine Zachary Faulkner MD [address] [place] [address] PCP - GeneralFamily Medicine07/27/24 Farnaz Turpin NP Nurse PractitionerFamily Medicine07/27/24documented as of this encounter
--- OUTSIDE RECORDS SUMMARY | 2025-09-07 08:54 | XMS_ITS | Encounter Summary ---
Author Organization [facility] Address [address] [facility] [place] [address] Care Team Providers Care Electron Tube Assembler Name Role Phone Shaikh CHANDA Chapin Primary Care Provider [phone] Zachary Faulkner MD Primary Care Provider [phone] Farnaz Turpin NP Unavailable [phone] Encounter Details DateTypeDepartmentCare Team (Latest Contact Info)Gzoxnduwzuo03/24/2024Clinisync Result Encounter [facility] External Department Unsolicited Shaikh Chapin MD [address] [place] [address] Social History Tobacco UseTypesPacks/DayYears UsedDateSmoking Tobacco: NeverPassive Smoke Exposure: NeverSmokeless Tobacco: NeverAlcohol UseStandard Drinks/WeekComments Yes0 (1 standard drink = 0.6 oz pure alcohol)FSKDTOREIUZF0642 Health Literacy AnswerDate RecordedHow often do you [...] week02/21/2025How often do you attend religion or rastafari services?More than 4 times per year02/21/2025Do you belong to any clubs or organizations such as religion groups, unions, fraternal or athletic groups, or school groups?Yes02/21/2025How often do you attend meetings of the clubs or organizations you belong to?1 to 4 times per year02/21/2025re you , , , , never , or living with a partner?Azwwqzq4502/21/2025UDIT-CAnswerDate RecordedQ1: How often do you have a [...] heating?Not hard at all02/21/2025PHQ-2AnswerDate RecordedPatient Health Questionnaire-2 Fxwwq208Hunger Vital SignAnswerDate RecordedWithin the past 12 months, [...] were you homeless or living in a skilled nursing (including now)? No02/21/2025CommentsUnknownSex and Gender InformationValueDate Recorded Sex Assigned at BirthNot on fileLegal FzlAqfbng68/15/2023 9:45 PM EDTGender IdentityNot on fileSexual OrientationNot on filedocumented as of this encounter Functional Status * AUDIT-C ScoreAnswerDate of XyknoyxaciQbkydq103/22/2025 9:33 AM EDTMychart, Generic * Q1: How [...] drinks on one occasion?AnswerDate of AssessmentAuthorLess than crlxtjk6302/21/2025 9:33 AM EDTMychart, Generic documented as of [...] EDT Narrative 05/25/2024 5:47 AM EDT [facility] ?[address] ? [place] [address] ? CT Scan Report ? Signed ? Patient: HODGES,CATHERINE J ?MR#: [id number] ?? : 1960 ?Acct:[id number] ?? Age/Sex: 63 / F ?ADM Date: 05/24/24 ?? Loc: CT ? Attending Dr: Shaikh Tavares Oliver ? Ordering Physician: Shaikh Benito Chapin ?? Date of Service: 05/24/24 ?? Procedure(s): CT chest wo con ?? Accession Number(s): [id number] ? cc: Shaikh Benito Chapin ? [facility] ? [address] [facility] ? [place] [address] ? Patient Name: ?? CATHERINE HODGES ? MRN: [facility]:[id number] ? date: 1960 ?Sex: F ?? Assigned Patient Location: CT ?? Current Patient Location: ? Accession/Order Number: [id number] ?? Exam Date: 05/24/2024 ??09:00 ?Report Date: [...] 0547 ? DD/ 0543 ? TD/TT: ? Nursery Attendant: Procedure Note Radiology, Radiologist, MD - 05/25/2024 [place] [address] CT Scan Report Signed Patient: CATHERINE HODGES R#: [id number] : 1960cct:[id number] Age/Sex: 63 / FADM Date: 05/24/24 Loc: CT Attending Dr: Shaikh Tavares Oliver Ordering Physician: Shaikh Benito Chapin Date of Service: 05/24/24 Procedure(s): CT chest wo con Accession Number(s): [id number] cc: Shaikh Benito Chapin The [place] [address] Patient Name: CATHERINE HODGES MRN: [facility]:[id number] date: 1960 Sex: F Assigned Patient Location: CT Current Patient Location: Accession/Order Number: [id number] Exam Date: 05/24/2024 09:00 Report Date: 05/25/2024 [...] M.D. Signed By:05/25/24 0547 DD/ 0543 TD/TT: Nursery Attendant: Authorizing ProviderResult TypeResult StatusShaikh Tavares MDCLINISYNC IMAGING Final Result documented in this encounter Visit Diagnoses Not on filedocumented in this encounter Care Teams Team MemberRelationshipSpecialtyStart DateEnd Date Shaikh Chapin MD PCP - GeneralInternal Medicine// Zachary Faulkner MD [address] [place] [address] PCP - GeneralFamily Medicine07/27/24 Farnaz Turpin NP Nurse PractitionerFamily Medicine07/27/24documented as of this encounter
--- NOTE | 2025-09-07 08:58 | CT_ITS ---
The [address] [address] Patient Name: JUNI HODGES MRN: [id number] date: 1960 Sex: F Assigned Patient Location: CARD Current Patient Location: CARD Accession/Order Number: [id number] Exam Date: 09/07/2025 09:35 Report Date: 09/07/2025 11:31 At the request of: DAMIÁN ULRICH DO Procedure: CT lung screening low-dose LOW-DOSE SCREENING CHEST CT WITHOUT CONTRAST COMPARISON: 05/24/2024 CLINICAL DATA: Former smoker of less than a pack per day for 25 to 30 years Spiral axial unenhanced low-dose images were obtained through the chest. Images were reviewed using both narrow and wide window settings. This CT exam was performed using one or more following dose reduction techniques: Automated exposure control, adjustment of the mA and/or kV according to patient size, or use of iterative reconstruction technique. The heart is within normal limits for size. No pericardial effusion is seen. The thoracic aorta is normal caliber. There is mild plaque, greatest at the arch. Tiny nonpathologic mediastinal lymph nodes are seen. There is slight dextroscoliotic curvature and mild endplate spurring. There is minimal atelectasis or scarring. No developing consolidation, pleural effusion or pneumothorax is noted. Multiple similar pulmonary nodules are seen, predominantly on the right. They measure up to 4 - 5 mm in size. There are also tiny intrapulmonary lymph nodes on the left. No developing nodularity is seen. Limited imaging through the upper abdomen suggests potential cholelithiasis. CT/CT lung screening low-dose IMPRESSION: MINOR ATELECTASIS AND/OR SCARRING. TINY STABLE PULMONARY NODULES. Lung RADS category 2 - benign Twelve-month low-dose CT follow-up suggested Impression dictated by: Ghada Trimble M.D. 09/07/2025 11:31 AM Dictation Location: [place] [address] Electronically authenticated by: [id number] Y Date: 09/07/2025 11:31
--- OUTSIDE RECORDS SUMMARY | 2025-09-07 09:00 | XMS_ITS | CCD ---
Author Organization [facility] Care Team Providers Care Honey Grader And Blender Name Role Phone FAWWAD, VAIL H Attending [...] Unavailable Zachary Aldana MD Primary Care Provider Turpin FURNACE OPERATOR OIL OR GAS, Ben Unavailable [phone] Dyana FURNACE OPERATOR OIL OR GAS, Ben Unavailable [phone] BEN TURPIN Attending UnavailZACHARY Whitlock Attending Unavailable FABjWAD, VAIL Attending Unavailable LEROY ZACARIAS Attending Unavailable LEROY ZACARIAS Referring Unavailable ZACHARY ALDANA Attending Unavailable Charo Baker MD Primary Care Provider [phone] Fortino Walter APRN Attending Provider Ly DOMarlen Attending Provider Ly DOMarlen Other Provider Zachary Aldana MD Primary Care Provider JOSH REICH Attending Unavailable JOSH REICH Referring Unavailable JOSH REICH Referring Unavailable Marlen Allan Attending Unavailable Marlen Allan Admitting Unavailable Zachary Aldana Primary Care Unavailable Mojgan DO, Maddison Primary Care Provider Mojgan DO, Maddison Attending Provider [phone] Tavares ARMAS [place] Primary Care Provider Zachary Aldana MD Primary Care Provider Dyana FURNACE OPERATOR OIL OR GAS, Ben Unavailable [phone] Charo Baker MD Primary Care Provider Fortino Walter APRN Attending Provider Allergies Allergy ClassificationReported Allergen(s)Allergy TypeDate of OnsetReaction(s) Facility (20 sources)Cephalexin; Translations: [CEPHALEXIN]Drug Hzmutlt45-21-8289Xiocr [facility] Healthcare (20 sources)Clindamycin; Translations: [CLINDAMYCIN]Drug Lmnxwwf18-10-5711Nqwfj [facility] Healthcare Medications Current Medications MedicationDrug Class(es)DatesSig (Normalized)Sig (Original)alendronic acid 70 mg oral tablet (20 sources)BisphosphonateStart: 92-50-2821Ehauaihkhqv Active MG PO December 27, 2023 12:00amStart: 11-18-2023 End: 11-46-0508yfzm 1 tablet by mouth every weekAlendronate 70 mg tablet Active 70 MG PO Once a week December 27, 2023 1:00am Complies with drug therapyStart: 11-18-2023 End: 08-49-9659ircx 1 tablet by mouth in the morningalendronate [...] extended release oral tablet (3 sources)Vitamin CStart: 12-61-7292bkck 1 tablet by mouth once dailyAscorbic Acid (Vitamin C) (C Complex) 1,000 mg tablet extended release Active 1000 MG PO Daily 2024 12:00am Complies with drug therapyaspirin 81 mg oral tablet (3 sources)Platelet Aggregation Inhibitor, Nonsteroidal Anti-inflammatory Drug Start: 53-42-1641oass 1 tablet by mouth once dailyAspirin 81 mg tablet Active 81 MG PO Daily May 18, 2025 12:00am Complies with drug therapyatorvastatin 10 mg oral tablet (20 sources)HMG-CoA Reductase InhibitorStart: 12-07-2023 End: 93-51-6398jvne 1 tablet by mouth once dailyAtorvastatin 10 mg tablet Active 10 MG PO Daily December 27, 2023 1:00am Complies with drug therapycalcium carbonate 1500 mg oral tablet (3 sources)Start: 12-12-3334pfna 1 tablet by mouth once dailyCalcium Carbonate (Calcium 600) 600 mg calcium (1,500 mg) tablet Active 600 MG PO Daily May 18, 2025 12:00am Complies with drug therapycetirizine hydrochloride 10 mg oral tablet (9 sources)Histamine-1 Receptor AntagonistStart: 05-22-2025 End: 20-15-0481gyxz 1 tablet by mouth once daily as neededCetirizine (Zyrtec) 10 mg tablet Active 10 MG PO Daily as needed August 15, 2025 12:00am Complies with drug therapyStart: 11-30-2024 End: 29-63-8749wqdh 1 tablet by mouth once dailycetirizine (ZyrTEC) 10 MG tablet Indications: Viral upper respiratory tract infection Take 1 tablet(10 mg) by mouth Daily 30 tablet 2 11/30/2024 02/23/2025 Discontinuedfluticasone propionate 0.05 mg/actuat metered dose nasal spray (7 sources)CorticosteroidStart: 11-30-2024 End: 31-25-1893tqhu 1-2 spray(s) nasal route once dailyfluticasone (Flonase) 50 MCG/ACT nasal spray Indications: Viral upper respiratory tract infection Ad blocking machine operator 1-2 sprays into each nostril Daily Shake gently. Before first use, prime pump. After use, clean tip and replace cap. 16 g 2 05/22/2025 05/22/2026 Activelevothyroxine sodium 0.112 mg oral capsule (20 sources)l-ThyroxineStart: 15-14-1099fkuz 1 capsule by mouth once daily Levothyroxine 112 mcg capsule Active 112 MCG PO Daily 90 0 August 21, 2025 12:00am Complies withdrug therapyStart: 12-09-2023 End: 89-27-4737akkt 1 tablet by mouth once dailyLevothyroxine 100 mcg tablet Discontinued 100 MCG PO Daily December 27, 2023 1:00am August 8:50ammethocarbamol 750 mg oral tablet (14 sources)Muscle RelaxantStart: 49-07-5091Yxrfgueqnjqoz 750 mg tablet Active 750 MG PO As Directed May 18, 2025 12:00am Complies with drugtherapy nabumetone 500 mg oral tablet (14 sources)Nonsteroidal Anti-inflammatory DrugStart: 02-23-2025 End: 85-47-2775Rtwakigjqj 500 mg tablet Active 500 MG PO As Directed May 18, 2025 12:00am Complies with drug therapyOmega 3-Cny-Bgk-Fish Oil (Fish Oil) 1,000 (120-180) mg capsule (3 sources)Start: 89-91-7706efdj 1 capsule by mouth once dailyOmega 8-Fzf-Aqw-Fish Oil (Fish Oil) 1,000 (120-180) mg capsule Active 1 CAP PO Daily May 18, 2025 12:00am Complies with drug therapyomeprazole 40 mg delayed release oral capsule (20 sources)Proton Pump InhibitorStart: 37-85-3770zkgp 1 capsule by mouth once dailyOmeprazole 40 mg capsule,delayed release(DR/EC) Active 40 MG PO Daily 30 30 3 August 30, 2025 12:00am Complies with drug therapyStart: 02-23-2025 End: 08-10-5851boce 1 capsule by mouth twice dailyOmeprazole 40 mg capsule,delayed release(DR/EC) Discontinued 40 MG PO Twice daily May 15, 2025 12:00am August 30, 2025 10:22amStart: 05-17-2024 End: 08-33-6910zqay 1 capsule by mouth in the morningomeprazole (PriLOSEC) [address] capsule Indications: Gastroesophageal reflux disease without esophagitis Take 1 capsule (40 mg) by mouth in the morning and 1 capsule (40 mg) in the evening. Take before meals. 180 capsule 3 02/23/2025 ActiveVit C,H-Zx-Xrzot-Lutein-Zeaxan ([facility] Health Areds-2) 250-90-40-1 mg capsule (3 sources)Start: 07-42-7946Ute C,T-Hj-Cydyd-Lutein-Zeaxan (Eye Health Areds-2) 250-90-40-1 mg capsule Active 1 TAB PO Twice daily May 18, 2025 12:00am Complies with drug therapyVitamin K2 45 mcg capsule (3 sources)Start: 31-64-8931dvtv 1 capsule by mouth once dailyVitamin K2 45 mcg capsule Active 45 MCG PO Daily May 31, 2025 12:00am Complies with drug therapy Completed/Discontinued Medications MedicationDrug Class(es)DatesSig (Normalized)Sig (Original)[id number] 200 actuat albuterol 0.09 mg/actuat metered dose inhaler (1 source)beta2-Adrenergic AgonistStart: 02-02-2024 End: 49-34-4819rjhc 2 puff(s) by inhalation every four hours [...] oral tablet (1 source)Penicillin-class AntibacterialStart: 02-02-2024 End: 92-54-6895gfim 1 tablet by mouth in the morningamoxicillin-clavulanate [...] oral capsule (1 source)Non-narcotic AntitussiveStart: 02-02-2024 End: 21-13-6916xpss 1 capsule by mouth three times daily [...] oral tablet (5 sources)Vitamin DStart: 12-27-2023 End: 19-79-4787pjbh 1 tablet by mouth once dailyCalcium Carbonate-Vitamin D3 (Oyster Shell Calcium-Vit D3) 500 mg-10 mcg (400 unit) tablet Discontinued 1 TAB PO Daily December 27, 2023 1:00am May 18, 2025 9:31amclindamycin 300 mg oral capsule (5 sources)Lincosamide AntibacterialStart: 12-27-2023 End: 01-86-6203dome 1 capsule by mouth every eight hoursClindamycin Hcl 300 mg capsule Discontinued 300 MG PO Q8H 21 7 0 December 27, 2023 1:00am May 15, 2025 10:23amdesonide 0.5 mg/ml topical cream (6 sources)CorticosteroidStart: 12-27-2023 End: 09-39-9783iesvgwxu (DesOwen) 0.05 % cream Apply topically 2 (two) times a day to affected area 12/27/2023 11/30/2024 Discontinued (Med list cleanup) doxycycline hyclate 100 mg oral capsule (1 source)Tetracycline-class DrugStart: 01-26-2024 End: 31-44-7789qvstxhsxmlh (Vibramycin) 100 MG capsule Indications: Pneumonia of [...] mg oral tablet (1 source)Start: 02-02-2024 End: 31-78-2288dzvs 2 tablets by mouth once dailypredniSONE (Deltasone) 20 MG tablet Indications: Non-recurrent acute suppurative otitis media of both ears without spontaneous rupture of tympanic membranes , Wheezing-associated respiratory infection , Respiratory illness with fever Take 2 tablets (40 mg) by mouth Daily for 5 days 10 tablet 02/02/2024 02/07/2024 Problems Active Problems Problem ClassificationProblemDateDocumented DateEpisodic/ChronicAbdominal pain (20 sources)Indigestion; Translations: [Epigastric pain]Onset: 01-04-2024 Resolved: 018830-29-9081KrdvxfuvRfzllatia of lipid metabolism (20 sources)Hyperlipidemia, unspecified; Translations: [Hyperlipidemia]Onset: 33-80-6558RfuzitfEtrjdzdwtv disorders (20 sources)Gastroesophageal reflux disease; Translations: [Gastro-esophageal reflux disease without esophagitis]Onset: 470243-76-9981EfhacycRtdppjtfvnp chest pain (2 sources)Atypical chest pain; Translations: [Other chest pain]08-17-2025 EpisodicOsteoarthritis (4 sources)Unilateral primary osteoarthritis, left hip; Translations: [UNI PRIM OSTEOARTHRITIS LT HIP]Onset: 50-85-1266JdtuhumAfsnkkteeppu (7 sources)Osteoporosis; Translations: [Age-related osteoporosis without current pathological fracture]Onset: 455518-86-5969JccruhzHwowo bone disease and musculoskeletal deformities (18 sources)Osteopenia; Translations: [Other specified disorders of bone density and structure, left thigh]Onset: 379921-19-1802IdqtcpbcSbinb circulatory disease (16 sources)Feeling of lump in throat; Translations: [Globus sensation]Onset: 800177-34-7412OqhxckgvCklei lower respiratory disease (1 source)Other nonspecific abnormal finding of lung field; Translations: [OTH NONSPECIFIC ABN FIND LNG FIELD]Onset: 29-39-5271VxdmscpfRihkk nervous system disorders (5 sources)Chronic low back pain; Translations: [Other chronic pain]Onset: 996933-30-2383GlqaddpAzcqe nervous system disorders (4 sources)Paresthesia of right upper limb; Translations: [Paresthesia of skin] 92-06-5763JilcdfbzAzdxf non-traumatic joint disorders (2 sources)Pain in left knee; Translations: [Pain in joint, lower leg]04-25-2025 EpisodicOther nutritional; endocrine; and metabolic disorders (16 sources)Severe obesity; Translations: [Class 2 severe obesity due to excess calories with serious comorbidity and body mass index (BMI) of 36.0 to 36.9 in adult ([facility])]Onset: 304958-75-4280SnspuczLzgat screening for suspected conditions (not mental disorders or infectious disease) (9 sources)Encounter for screening mammogram for malignant neoplasm of breast; Translations: [Patient encounter status]Onset: 13-93-7704InvsiytoDvuqfvzu codes; unclassified (1 source)Family history of malignant neoplasm of breast; Translations: [FAMILY HX MALIG NEOPLASM OF BREAST]Onset: 42-38-9732RwtpxivhAsacxwwmu and history of mental health and substance abuse codes (20 sources)Ex-smoker; Translations: [Personal history of nicotine dependence] Onset: 030782-18-5185RzqxcmusPqfjfuodmpz; intervertebral disc disorders; other back problems (20 sources)Degeneration of lumbar intervertebral disc; Translations: [Degeneration of intervertebral disc of lumbar region with discogenic back pain] Onset: 973904-19-0715MemzxsbGaolifn and strains (2 sources)Strain of calf muscle; Translations: [Strain of other muscle(s) and tendon(s) at lower leg level, left leg, initial encounter]98-95-4939Grfmeqwp Thyroid disorders (20 sources)Hypothyroidism, unspecified; Translations: [Hypothyroidism]Onset: 53-70-1477Eokjnou Past or Other Problems Problem ClassificationProblemDateDocumented DateEpisodic/ChronicBiliary tract disease (20 sources)Cholelithiasis without obstruction; Translations: [Calculus of gallbladder without cholecystitis without obstruction]Onset: 01-04-2024 06-25-9291PifyhrtdYplzj bone disease and musculoskeletal deformities (20 sources)Postmenopausal osteopenia; Translations: [Other specified disorders of bone density and structure, unspecified site]Onset: 11-18-2023 Resolved: 166459-65-2259LkvqtsrnBoaqs lower respiratory disease (20 sources)Multiple nodules of lung; Translations: [Other nonspecific abnormal finding of lung field]Onset: 161714-94-4166WmexvwdrMnjmo lower respiratory disease (20 sources)Respiratory tract infection; Translations: [Other specified respiratory disorders]Onset: 02-03-2024 Resolved: 208251-44-8652FzqvvsylRhpfb lower respiratory disease (20 sources)Disorder of respiratory system; Translations: [Respiratory disorder, unspecified]Onset: 02-03-2024 Resolved: 517863-06-3140AzorileqDnbde nervous system disorders (4 sources)Anesthesia of skin; Translations: [ANESTHESIA OF SKIN]Onset: 57-30-0086KakjmsvpIabzx non-traumatic joint disorders (1 source)Pain in left hip; Translations: [PAIN IN LEFT HIP]Onset: 05-16-2022 EpisodicOther upper respiratory infections (20 sources)Viral upper respiratory tract infection; Translations: [Acute upper respiratory infection, unspecified]Onset: 11-30-2024 Resolved: 098343-63-5111YdawxoziFrhngh media and related conditions (20 sources)Acute suppurative otitis media without spontaneous rupture of ear drum; Translations: [Acute suppurative otitis media without spontaneous rupture of ear drum, bilateral]Onset: 02-03-2024 Resolved: 627334-13-3740IfuacjadIokh and subcutaneous tissue infections (20 sources)Cellulitis of face; Translations: [Cellulitis of face]Onset: 01-04-2024 Resolved: 634383-96-1581Rtzfeotj Results Test NameValueInterpretationReference RangeFacilityBasophils Auto (Bld) [#/Vol] Ordered By: Maddison Ulrich on 14-78-5842Cvgmszxpv (Bld) [#/Vol]0.0 10 3/uL0.0-0.1 [facility] HospitalBasophils/100 WBC Auto (Bld)Ordered By: Maddison Ulrich on 36-10-9979Glrtoldwm/100 WBC (Bld)0.5 %0.2-2.0[facility] HospitalCholesterol in LDL Calc [Mass/Vol]Ordered By: MADDISON ULRICH on 08-17-2025 Cholesterol in LDL [Mass/Vol]118.2 mg/dLPromedica Bay Park HospitalComment on above:<100 mg/dl MJFMHIL549-413 mg/dl NEAR OR ABOVE CISFJZB256-310 mg/dl BORDERLINE HGJW600-794 mg/dl HIGH>190 mg/dl VERY HIGHCholesterol in VLDL Calc [Mass/Vol]Ordered By: MADDISON ULRICH on 95-83-3144Sturlqfqghg in VLDL [Mass/Vol] 20.8 mg/dLPromedica Bay Park HospitalEosinophils/100 WBC Auto (Bld)Ordered By: Maddison Ulrich on 51-52-9472Wuulgdnbjld/100 WBC (Bld)2.7 %0.9-7.0[facility] HospitalErythrocyte distribution width Auto (RBC) [Ratio]Ordered By: Maddison Ulrich on 35-01-2401Bichbfyhnxl distribution width (RBC) [Ratio]14.6 % 11.0-15.0[facility] HospitalGlobulin Calc (S) [Mass/Vol]Ordered By: MADDISON ULRICH on 56-70-5770Jazdofvq (S) [Mass/Vol]4.2 g/dLPromedica Bay Park HospitalGlomerular filtration rate (GFR) estimation in non- AmericanOrdered By: MADDISON ULRICH on 65-15-5085CPC/1.73 sq M.predicted among non- blacks MDRD (S/P/Bld) [Vol rate/Area]mL/min/{1.73_m2}>=60 mL/min/1.73m 2 [facility] CenterHematocrit Auto (Bld) [Volume fraction]Ordered By: Maddison Mojgan on 27-99-7081Aoamhupgqx (Bld) [Volume fraction]35.9 %Low 36.0-48.0[facility] HospitalHemoglobin [Mass/volume] in Blood Ordered By: Maddisondada Ulrich on 11-60-7813Mhctuwfzac (Bld) [Mass/Vol]11.8 g/dLLow 12.0-16.0[facility] HospitalLaboratory - Chemistry and Chemistry - challengeOrdered By: MADDISONDADA ULRICH on 21-55-0121Xejvhmz [Mass/Vol]3.6 g/dL 3.4-5.0[facility] HospitalALP [Catalytic activity/Vol]52 U/L46-116 [facility] HospitalALT [Catalytic activity/Vol]17 U/L14-59 [facility] HospitalAST [Catalytic activity/Vol]20 U/L15-37 [facility] HospitalBilirubin [Mass/Vol]0.4 mg/dL0.2-1.0[facility] HospitalCalcium [Mass/Vol]8.9 mg/dL8.5-10.1FUniversity Hospitals Cleveland Medical CenterChloride [Moles/Vol]104 mmol/R50-682CfiuobhobPromedica Bay Park HospitalCholesterol [Mass/Vol]183 mg/dL<=200[facility] Cholesterol in HDL [Mass/Vol]44 mg/wY29-00HmacolksvPromedica Bay Park Hospital Comment on above:> or =60 mg/dl - LOW CARDIOVASCULAR RISK<40 mg/dl - HIGH CARDIOVASCULAR RISKCO2 [Moles/Vol]31.2 mmol/L21.0-32.0[facility] HospitalCreatinine [Mass/Vol]0.72 mg/dL0.55-1.02[facility] GFR/1.73 sq M.predicted MDRD (S/P/Bld) [Vol rate/Area]mL/min/{1.73_m2}>=60 mL/min/1.73m 2FUniversity Hospitals Cleveland Medical CenterGlucose [Mass/Vol]85 mg/hB49-699 [facility] HospitalPotassium [Moles/Vol]3.6 mmol/L3.5-5.1FUniversity Hospitals Cleveland Medical CenterProtein [Mass/Vol]7.8 g/dL6.4-8.2FRegency Hospital Cleveland Westodium [Moles/Vol]143 mmol/R364-512IvskcuqxjPromedica Bay Park HospitalTriglyceride [Mass/Vol]104 mg/dL<=150[facility] HospitalUrea nitrogen [Mass/Vol]15.0 mg/dL7.0-18.0[facility] HospitalUrea nitrogen/Creatinine [Mass ratio]20.8 mg/mgPromedica Bay Park Hospital Laboratory - Chemistry and Chemistry - challengeOrdered By: Maddison Ulrich on 84-54-7175Tgyl T4 [Mass/Vol]1.05 ng/dL0.76-1.46[facility] TSH Qn4.025 m[IU]/LHigh0.358-3.740[facility] HospitalLaboratory - Hematology and Cell countsOrdered By: Maddison Ulrich on 29-86-2142Yynqgite granulocytes/100 WBC (Bld)0.2 %0.0-0.5FUniversity Hospitals Cleveland Medical Center Leukocytes [#/volume] corrected for nucleated erythrocytes in Blood by Automated counOrdered By: Maddison Ulrich on 20-56-7989SDZ corrected for nucl RBC Auto (Bld) [#/Vol]6.4 10 3/uL4.0-11.0[facility] HospitalLymphocytes Auto (Bld) [#/Vol]Ordered By: Maddison Ulrich on 03-30-5957Utvorkhgkok (Bld) [#/Vol]1.5 10 3/uL1.2-3.8[facility] HospitalLymphocytes/100 WBC Auto (Bld) Ordered By: Maddison Ulrich on 67-87-7846Zrskwzmrpwi/100 WBC (Bld)22.7 %20.5-60.[address] [facility] Auto (RBC) [Entitic mass]Ordered By: Maddison Ulrich on 16-40-0464FJB (RBC) [Entitic mass]28.6 pg26.7-34.0[facility] HospitalMC Auto (RBC) [Mass/Vol]Ordered By: Maddison Ulrich on 79-19-8691CZDX (RBC) [Mass/Vol]32.9 g/dL29.9-35.2FUniversity Hospitals Cleveland Medical CenterMCV Auto (RBC) [Entitic vol]Ordered By: Maddison Ulrich on 82-43-5196RKJ (RBC) [Entitic vol]86.9 fL81.0-99.0[facility] HospitalMonocytes Auto (Bld) [#/Vol]Ordered By: Maddison Ulrich on 73-37-9458Xteqmtzsu (Bld) [#/Vol] 0.3 10 3/uL0.3-0.8[facility] HospitalMonocytes/100 WBC Auto (Bld) Ordered By: Maddison Ulrich on 10-87-6256Qfolwnmal/100 WBC (Bld)4.9 %1.7-12.0 [facility] HospitalNeutrophils Auto (Bld) [#/Vol]Ordered By: Maddison Ulrich on 22-92-6200Uqenvgdmtrk (Bld) [#/Vol]4.4 10 3/uL1.4-6.5FUniversity Hospitals Cleveland Medical CenterNeutrophils/100 WBC Auto (Bld)Ordered By: Maddison Ulrich on 63-31-6272Vnspkhkhjox/100 WBC (Bld)69.0 %43.0-75.0[facility] HospitalNo Panel InformationOrdered By: Maddison Ulrich on 16-67-6201Qlpnpexyhgc # (Auto)0.2 10 3/uL0.0-0.7FUniversity Hospitals Cleveland Medical CenterImmature Granulocyte # (Auto)0.01 10 3/uL0.00-0.03[facility] HospitalPlatelet mean volume Auto (Bld) [Entitic vol]Ordered By: Maddison Ulrich on 12-21-5363Jhrxyriw mean volume (Bld) [Entitic vol]9.4 fLLow9.5-13.5FUniversity Hospitals Cleveland Medical Center Platelets Auto (Bld) [#/Vol]Ordered By: Maddison Ulrich on 70-21-0917Txwpqufgj (Bld) [#/Vol]173 10 3/qW223-670CwsnqaeyuPromedica Bay Park HospitalRBC Auto (Bld) [#/Vol]Ordered By: Maddison Mojgan on 38-38-0301UPV (Bld) [#/Vol]4.13 10 6/uLLow 4.20-5.40[facility] Hospitalerum or plasma albumin/globulin mass ratioOrdered By: MADDISON MOJGAN on 86-05-4582Ozdacws/Globulin [Mass ratio]0.9 {ratio}[facility] Hospitalerum or plasma anion gap determination Ordered By: MADDISONDADA ULRICH on 21-74-5403Ewodw gap [Moles/Vol]11.4 mmol/LFRegency Hospital Cleveland Westerum or plasma total cholesterol/high density lipoprotein (HDL) cholesterol mass ratOrdered By: MADDISON MOJGAN on 08-17-2025 Cholesterol.total/Cholesterol in HDL [Mass ratio]4.2 {ratio}[facility] HospitalComment on above:3.3 - 4.4 LOW RISK4.4 - 7.1 AVERAGE RISK7.1 - 11.0 MODERATE RISK>11.0 HIGH RISKOffice Visiton 90-42-2238Njurby-up visit [id number] Juni Hodges 1960 F Date Provider Department Center 06/21/2025 JOSH IBARRA ONC DCC Family History Problem Relation Age of Onset Diabetes Mother Clotting disorder Father's Sister Family Status - Relation Status Age at Mother Alive Father's Sister Alive Level of Service:82824 GA OFFICE/OUTPATIENT NEW LOW MDM 30 MINUTESNormal [facility] BeachwoodPathology Request for Lab Corpon 05-31-2025 Pathology Request for Lab CorpUF Health The Villages® Hospital Physician GroupComment on above:Order Comment: GI SPECIMENResult Comment: See report. Scanned copy available in EMR. PERFORMED BY: [place] [address] PATHOLOGIST DATABASE ADMINISTRATION ASSOCIATE FAUSTINO JEFFERS M.D.Performed By: #### PATH TO [facility] #### [address] [address] USAMR LUMBAR SPINE WO CONon 42-77-1984[place] [address] Magnetic Resonance Report Signed Patient: JUNI HODGES MR#: [id number] : 1960 Acct:[id number] Age/Sex: 64 / F ADM Date: 05/18/25 Loc: MRI Attending Dr: Zachary Aldana M.D. Ordering Physician: Zachary Aldana M.D. Date of Service: 05/18/25 Procedure(s): MR lumbar spine wo con Accession Number(s): [id number] cc: Zachary Aldana M.D. [place] [address] Patient Name: JUNI HODGES MRN: [id number] date: 1960 Sex: F Assigned Patient Location: MRI Current Patient Location: Accession/Order Number: [id number] Exam Date: 05/19/2025 00:04 Report Date: 05/19/2025 [...] Tobin M.D. 05/19/2025 12:08 AM Dictation Location: [place] [address] Electronically authenticated by: [id number] Y Date: 05/19/2025 00:08 Dictated By: Caleb Tobin M.D. Signed By: 05/19/25 0011 DD/ 0008 TD/TT: Second Officer:TBHRadiology, Radiologist, - 05/19/[address] [place] [address] Magnetic Resonance Report Signed Patient: JUNI HODGES MR#: [id number] : 1960 Acct:[id number] Age/Sex: 64 / F ADM Date: 05/18/25 Loc: MRI Attending Dr: Zachary Aldana M.D. Ordering Physician: Zachary Aldana M.D. Date of Service: 05/18/25 Procedure(s): MR lumbar spine wo con Accession Number(s): [id number] cc: Zachayr Aldana M.D. [place] [address] Patient Name: JUNI HODGES MRN: [id number] date: 1960 Sex: F Assigned Patient Location: MRI Current Patient Location: Accession/Order Number: [id number] Exam Date: 05/19/2025 00:04 Report Date: 05/19/2025 [...] Tobin M.D. 05/19/2025 12:08 AM Dictation Location: [place] [address] Electronically authenticated by: [id number] Y Date: 05/19/2025 00:08 Dictated By: Caleb Tobin M.D. Signed By: 05/19/25 0011 DD/ 0008 TD/TT: Second Officer: [facility] CENTERSteven [facility] HospitalRadiology Study observation (narrative)[facility] LUMBAR SPINE WO CONOrdered By: Radiologist Radiology on 31-34-6962UEJAResearch [facility] Work Phone: US.doppler Lower extremity vein - [...] II, MD, PHD at 26-Apr-2025 07:44:18 AM [facility]rad[facility] ChristianaCareTanner leija MD - 04/26/2025 EXAM: VAS US [...] II, MD, PHD at 26-Apr-2025 07:44:18 AM [facility] TenebrilradA[facility].doppler Lower extremity vein - leftOrdered By: Tanner Mejia on 77-71-9159XUWHResearch [facility] Work Phone: US.doppler Lower extremity vein - lefton 04-25-2025 Radiology Study observation (narrative)[facility] US LOWER EXTREMITY VENOUS DUPLEX LEFTon 07-87-2170XYTW US LOWER EXTREMITY VENOUS DUPLEX LEFTEXAM: [facility] US LOWER EXTREMITY VENOUS DUPLEX LEFT HISTORY: [...] II, MD, PHD at 26-Apr-2025 07:44:18 AM [facility] TeleradiologyNormalNot AvailableXR LUMBAR SPINE 2 OR 3Von 76-90-7812[place]axIron [place] [address] XRay Report Signed Patient: JUNI HODGES MR#: [id number] : 1960 Acct:[id number] Age/Sex: 64 / F ADM Date: 02/23/25 Loc: [facility] Attending Dr: Zachary Aldana M.D. Ordering Physician: Zachary Aldana M.D. Date of Service: 02/23/25 Procedure(s): XR lumbar spine 2-3V Accession Number(s): [id number] cc: Zachary Aldana M.D. [place] [address] Patient Name: JUNI HODGES MRN: [id number] date: 1960 Sex: F Assigned Patient Location: [facility] Current Patient Location: [facility] Accession/Order Number: [id number] Exam Date: 02/23/2025 13:52 Report Date: 02/23/2025 [...] Rose Jr., D.OAdi02/23/2025 1:52 PM Dictation Location: [place] [address] Electronically authenticated by: [id number] Y Date: 02/23/2025 13:52 Dictated By: Cesar Rose M.D. Signed By: 02/23/25 135 DD/ 135 TD/TT: Second Officer:NASEEMHRadiology, Radiologist, - 02/23/2025 [place] [address] XRay Report Signed Patient: JUNI HODGES MR#: [id number] : 1960 Acct:[id number] Age/Sex: 64 / F ADM Date: 02/23/25 Loc: [facility] Attending Dr: Zachary Aldana M.D. Ordering Physician: Zachary Aldana M.D. Date of Service: 02/23/25 Procedure(s): XR lumbar spine 2-3V Accession Number(s): [id number] cc: Zachary Aldana M.D. [address] [place] [address] Patient Name: JUNI HODGES MRN: [id number] date: 1960 Sex: F Assigned Patient Location: [facility] Current Patient Location: [facility] Accession/Order Number: [id number] Exam Date: 02/23/2025 13:52 Report Date: 02/23/2025 [...] Rose Jr., D.O.02/23/2025 1:52 PM Dictation Location: [place] [address] Electronically authenticated by: [id number] Y Date: 02/23/2025 13:52 Dictated By: Cesar Rose M.D. Signed By: 02/23/251354 DD/ 51 TD/TT: Second Officer: ROJAS HealthcareRadiology Study observation (narrative)[facility] HealthcareXR LUMBAR SPINE 2 OR 3VOrdered By: Radiologist Radiology on 11-20-2858GWZG [employer] Work Phone: MM TOMOSYNTHESIS SCREENING BIon 82-20-7271Gfz [address] [address] Mammography Report Signed Patient: JUNI HODGES MR#: [id number] : 1960 Acct:[id number] Age/Sex: 64 / F ADM Date: 12/15/24 Loc: [facility] Attending Dr: BEN TURPIN Ordering Physician: BEN TURPIN Results: Date of Service: 12/15/24 Follow Up: Procedure(s): MM tomosynthesis screening BI Accession Number(s): [id number] cc: BEN TURPIN Patient Name: JUNI HODGES MR#: [id number] : 1960 Exam Date: 12/15/2024 Ordering Doctor: [...] breast cancer at age 69. LOCATION: [facility] BREAST COMPOSITION: There are scattered areas [...] Signed By: 12/16/24 1131 DD/ 1130 TD/TT: Second Officer:TBHRadiology, Radiologist, MD - 12/16/2024 [place] [address] Mammography Report Signed Patient: JUNI HODGES MR#: [id number] : 1960 Acct:[id number] Age/Sex: 64 / F ADM Date: 12/15/24 Loc: [facility] Attending Dr: BEN TURPIN Ordering Physician: BEN TURPIN Results: Date of Service: 12/15/24 Follow Up: Procedure(s): MM tomosynthesis screening BI Accession Number(s): [id number] cc: BEN TURPIN Patient Name: JUNI HODGES MR#: [id number] : 1960 Exam Date: 12/15/2024 Ordering Doctor: [...] breast cancer at age 69. LOCATION: [facility] BREAST COMPOSITION: There are scattered areas [...] Signed By: 12/16/24 1131 DD/ 113 TD/TT: Second Officer: ROJAS [facility] HospitalRadiology Study observation (narrative)[facility] TOMOSYNTHESIS SCREENING BIOrdered By: Radiologist Radiology on 79-82-8085GCCB [employer] Work Phone: ct CHEST WO CONon 32-29-4087[place] [address] CT Scan Report Signed Patient: JUNI HODGES MR#: [id number] : 1960 Acct:[id number] Age/Sex: 63 / F ADM Date: 05/24/24 Loc: CT Attending Dr: Shaikh Tavares Oliver Ordering Physician: Shaikh Benito Chapin Date of Service: 05/24/24 Procedure(s): CT chest wo con Accession Number(s): [id number] cc: Shaikh Benito Chapin [place] [id number] Patient Name: JUNI HODGES MRN: [id number] date: 1960 Sex: F Assigned Patient Location: CT Current Patient Location: Accession/Order Number: [id number] Exam Date: 05/24/2024 09:00 Report Date: 05/25/2024 [...] Saxena M.D. Signed By: 05/25/2447 DD/ TD/TT: Second Officer:TBHRadiology, Radiologist, MD - 05/25/2024 [place] [address] CT Scan Report Signed Patient: JUNI HODGES MR#: [id number] : 1960 Acct:[id number] Age/Sex: 63 / F ADM Date: 05/24/24 Loc: CT Attending Dr: Shaikh Tavares Oliver Ordering Physician: Shaikh Benito Chapin Date of Service: 05/24/24 Procedure(s): CT chest wo con Accession Number(s): [id number] cc: Shaikh Benito Chapin The [address] [address] Patient Name: JUNI HODGES MRN: [id number] date: 1960 Sex: F Assigned Patient Location: CT Current Patient Location: Accession/Order Number: [id number] Exam Date: 05/24/2024 09:00 Report Date: 05/25/2024 [...] Signed By: 05/25/24 0547 DD/ 0543 TD/TT: Second Officer: [facility] HealthcareRadiology Study observation (narrative)[facility] HealthcareCT CHEST WO CONOrdered By: Radiologist Radiology on 82-22-0910TNSC [employer] Work Phone: xr DEXA AXIAL SKELETONon 77-96-5395[place]db[place] [address] XRay Report Signed Patient: JUNI HODGES MR#: [id number] : 1960 Acct:[id number] Age/Sex: 63 / F ADM Date: 05/24/24 Loc: CT Attending Dr: Shaikh Tavares Oliver Ordering Physician: Shaikh Benito Chapin Date of Service: 05/24/24 Procedure(s): XR DEXA axial skeleton Accession Number(s): [id number] cc: Shaikh Benito Chapin [place] [id number] Patient Name: JUNI HODGES MRN: [id number] date: 1960 Sex: F Assigned Patient Location: CT Current Patient Location: CT Accession/Order Number: [id number] Exam Date: 05/24/2024 09:10 Report Date: 05/24/2024 [...] prevention and treatment of osteoporosis. Osteoporos Int. 2021;3310):7220-8522. doi: 10.1007/p45532-173-17232-l. Epub 2021Feb 27. Erratum in: Osteoporos Int. 2021May 29;: PMID: 87615107; PMCID: [id number]. Electronically authenticated by: CELINE SAXENA Date: 05/24/2024 10:18 Dictated By: Celine Saxena M.D. Signed By: 05/24/24 1020 DD/ 1018 TD/TT: Second Officer:TBHRadiology, Radiologist, - 05/24/2024 [place] [address] XRay Report Signed Patient: JUNI HODGES MR#: [id number] : 1960 Acct:[id number] Age/Sex: 63 / F ADM Date: 05/24/24 Loc: CT Attending Dr: Shaikh Tavares Oliver Ordering Physician: Shaikh Benito Chapin Date of Service: 05/24/24 Procedure(s): XR DEXA axial skeleton Accession Number(s): [id number] cc: Shaikh Benito Chapin [address] [place] [id number] Patient Name: JUNI HODGES MRN: [id number] date: 1960 Sex: F Assigned Patient Location: CT Current Patient Location: CT Accession/Order Number: [id number] Exam Date: 05/24/2024 09:10 Report Date: 05/24/2024 [...] Haylee MS, Chris SL, Anival KL, Deven SAENZ, Balwinder KG, AJ, Justo ES. The clinician's guide to prevention and treatment of osteoporosis. Osteoporos Int. 2021;33(10):5736-0708. doi: 10.1007/g73338-996-61061-z. Epub 2021Feb 27. Erratum in: Osteoporos Int. 2021May 29;: PMID: 62422095; PMCID: [id number]. Electronically authenticated by: CELINE SAXENA Date: 05/24/2024 10:18 Dictated By: Celine Saxena M.D. Signed By: 05/24/24 1020 DD/ 1018 TD/TT: Second Officer: ROJAS HealthcareRadiology Study observation (narrative)[facility] HealthcareXR DEXA AXIAL SKELETONOrdered By: Radiologist Radiology on 24-75-5736[facility] Work Phone: XR CHEST 2Von 13-34-6171HsxIron [place] [address] XRay Report Signed Patient: JUNI HODGES MR#: [id number] : 1960 Acct:[id number] Age/Sex: 63 / F ADM Date: 02/02/24 Loc: [facility] Attending Dr: Shaikh Tavares Oliver Ordering Physician: Shaikh Benito Chapin Date of Service: 02/02/24 Procedure(s): XR chest 2V Accession Number(s): [id number] cc: Shaikh Benito Chapin [place] [address] Patient Name: JUNI HODGES MRN: [id number] date: 1960 Sex: F Assigned Patient Location: RAD Current Patient Location: RAD Accession/Order Number: [id number] Exam Date: 02/02/2024 12:22 Report Date: 02/02/2024 [...] Signed By: 02/02/24 1310 DD/ 1308 TD/TT: Second Officer:TBHRadiology, Radiologist, - 02/02/2024 [place] [address] XRay Report Signed Patient: JUNI HODGES MR#: [id number] : 1960 Acct:[id number] Age/Sex: 63 / F ADM Date: 02/02/24 Loc: [facility] Attending Dr: Shaikh Tavares Oliver Ordering Physician: Shaikh Benito Chapin Date of Service: 02/02/24 Procedure(s): XR chest 2V Accession Number(s): [id number] cc: Shaikh Benito Chapin [place] [address] Patient Name: JUNI HODGES MRN: [id number] date: 1960 Sex: F Assigned Patient Location: [facility] Current Patient Location: RAD Accession/Order Number: [id number] Exam Date: 02/02/2024 12:22 Report Date: 02/02/2024 [...] Signed By: 02/02/24 1310 DD/ 1308 TD/TT: Second Officer: [facility] HospitalRadiology Study observation (narrative)[facility] HospitalXR CHEST 2V Ordered By: Radiologist Radiology on 41-23-5202SZOX [employer] Work Phone: cT CHEST WO CONon 06-66-4513EV CHEST WO CON EXAMINATION: CT CHEST WO [...] Electronically authenticated by: CELINE SAXENA Date: 2022-12-16 14:13[facility] Medical CenterDAT - VITAMIN Don 17-55-2676IEB D 25-OH28.8 ng/mLNormalMercy Health St. Rita'S Medical CenterComment on above:Performed By: #### DATVITD #### [facility] [address] [place] [address] Dr. Emmanuel Vazquez RANGESSEE BELOWMain Campus Medical CenterComment on above: Result Comment: <20 ng/mL Vit D deficient 20 - <30 ng/mL Vit D insufficient 30 - 100 ng/mL Vit D sufficient >100 ng/mL Potential ToxicityPerformed By: #### DATVITD #### [facility] [address] [place] [address] Dr. Emmanuel HillmanGLYCOHEMOGLOBIN A1Con 16-68-1847YGG RECOMMENDATIONSEE [facility] HospitalCom[facility] on above:Result Comment: ADA RECOMMENDED LIMIT 4.0 - 6.0 ADA THERAPEUTIC TARGET < 7.0 ACTION SUGGESTED > 7.0Performed By: #### DATA1C #### [facility] [address] [place] [address] Dr. Emmanuel HillmanGlucose [Mass/Vol]108 mg/dLMain Campus Medical CenterCombronson methodist hospital on above:Performed By: #### DATA1C #### [facility] [address] [place] [address] Dr. Emmanuel HillmanHbA1c (Bld) [Mass fraction]5.4 %Normal4.5-6.2Mer[facility] St. Rita'S Medical CenterComment on above:Performed By: #### DATA1C #### [facility] [address] [place] [address] Dr. Emmanuel HillmanLIPID PROFILEon 99-21-3468YTHG-HDL RATIO NORMSEE [facility] CenterCombronson methodist hospital on above:Result Comment: 3.3 - 4.4 LOW RISK 4.4 - 7.1 AVERAGE RISK 7.1 - 11.0 MODERATE RISK >11.0 HIGH RISKPerformed By: #### LIPID, TSH, LIVER #### [facility] [address] [place] [address] [address] Emmanuel HillmanCholesterol [Mass/Vol]148 mg/dLNormal<=200[facility] Comment on above:Performed By: #### LIPID, TSH, LIVER #### [facility] [address] [place] [address] [address] Emmanuel HillmanCholesterol in HDL [Mass/Vol]44 mg/rACoafyy61-23Foa [facility] HospitalComment on above:Performed By: #### LIPID, TSH, LIVER #### [facility] [address] [place] [address] [address] Emmanuel HillmanCholesterol in LDL [Mass/Vol]79.0 mg/dLNoSelect Medical Specialty Hospital - CincinnatiComment on above:Performed By: #### LIPID, TSH, LIVER #### [facility] [address] [place] [address] [address] Emmanuel De La Cruzestersusie.total/Cholesterol in HDL [Mass ratio]3.4 {ratio} NormalThe [facility] HospitalComment on above:Performed By: #### LIPID, TSH, LIVER #### [facility] [address] [place] [address] [address] Emmanuel Aviles NORMAL> or = 60 mg/dl - LOW CARDIOVASCULAR RISK <40 mg/dl - HIGH CARDIOVASCULAR RISKMain Campus Medical CenterComment on above:Performed By: #### LIPID, TSH, LIVER #### [facility] [address] [place] [address] [address] Emmanuel HillmanLDL CALC NORMALSEE BELOWNoSelect Medical Specialty Hospital - CincinnatiComment on above:Result Comment: <100 mg/dl OPTIMAL 100 - 129 mg/dl NEAR OR ABOVE OPTIMAL 130 - 159 mg/dl BORDERLINE HIGH 160 - 189 mg/dl HIGH >190 mg/dl VERY HIGH Performed By: #### LIPID, TSH, LIVER #### [facility] [address] [place] [address] [address] Emmanuel HillmanTriglyceride [Mass/Vol]125 mg/dLNormal<=150The [facility] Comment on above:Performed By: #### LIPID, TSH, LIVER #### [facility] [address] [place] [address] [address] Emmanuel GarciaLDL CALC25.0 mg/dLNormalThe [facility] on above: Performed By: #### LIPID, TSH, LIVER #### [facility] [address] [place] [address] Dr. Emmanuel Murrell PROFILEon 10-32-3355Dgaptjt [Mass/Vol]3.7 g/dLNormal3.4-5.0 [facility] HospitalComment on above:Performed By: #### LIPID, TSH, LIVER #### [facility] [address] [place] [address] Dr. Emmanuel HillmanAlbumin/Globulin [Mass ratio]0.9 {ratio}NormalThe [facility] on above:Performed By: #### LIPID, TSH, LIVER #### [facility] [address] [place] [address] Dr. Emmanuel Anderson [Catalytic activity/Vol]69 U/PGezlod80-742Bvt [facility] HospitalComment on above:Performed By: #### LIPID, TSH, LIVER #### [facility] [address] [place] [address] Dr. Emmanuel Beatty [Catalytic activity/Vol]34 U/CWxsirh60-22Uqw [facility] on above:Performed By: #### LIPID, TSH, LIVER #### [facility] [address] [place] [address] Dr. Emmanuel Dawn [Catalytic activity/Vol]17 U/QNdlxph18-14Qif [facility] on above:Performed By: #### LIPID, TSH, LIVER #### [facility] [address] [place] [address] Dr. Emmanuel Bey, CONJUGATED0.1 mg/dLNormal0.0-0.2The [facility] Comment on above:Performed By: #### LIPID, TSH, LIVER #### [facility] [address] [place] [address] Dr. Emmanuel Krishnanirubin [Mass/Vol]0.4 mg/dLNormal0.2-1.0The [facility] Comment on above:Performed By: #### LIPID, TSH, LIVER #### [facility] [address] [place], [place] [address] Dr. Emmanuel HillmanGlobulin (S) [Mass/Vol]4.3 g/dLNormalThe [facility] HospitalComment on above:Performed By: #### LIPID, TSH, LIVER #### [facility] [address] [place], [place] [address] Dr. Emmanuel HillmanProtein [Mass/Vol]8.0 g/dLNormal6.4-8.2The [facility] Comment on above:Performed By: #### LIPID, TSH, LIVER #### [facility] [address] [place], [place] [address] Dr. Emmanuel Gunn 21-88-9393VIZ9.447 uIU/mLCritically high0.358-3.740Mer[facility] Health St. Rita'S Medical CenterComment on above:Performed By: #### LIPID, TSH, LIVER #### [facility] [address] [place], [place] [address] Dr. Emmanuel HillmanMG MAMM SCREEN 3D MEKA CADon 20-91-6193SD MAMM SCREEN 3D MEKA CAD Patient: JUNI HODGES Exam Date: 09/24/2022 : 1960 Gender:F Ordering : SHAIKH Quintin CHAPIN . Admission #: [id number] Family : Order #: [id number] CLICK HERE TO VIEW EXAM RADIOLOGY REPORT [...] breast cancer at age 69. LOCATION: [facility] BREAST COMPOSITION: Scattered areas fibroglandular [...] by: Celine Saxena M.D. on 09/24/2022 at 13:35Main Campus Medical CenterLIPID PROFILEon 95-85-4533HNCX-HDL RATIO NORMSEE BELOWMain Campus Medical CenterCombronson methodist hospital on above:Result Comment: 3.3 - 4.4 LOW RISK 4.4 - 7.1 AVERAGE RISK 7.1 - 11.0 MODERATE RISK >11.0 HIGH RISKPerformed By: #### LIPID, TSH #### [facility] [address] [place] [address] [address] Emmanuel De La Cruzesterol [Mass/Vol]149 mg/dLNormal<=200[facility] Comment on above:Performed By: #### LIPID, TSH #### [facility] [address] [place] [address] [address] Emmanuel De La Cruzesterol in HDL [Mass/Vol]44 mg/uTOhevuj03-71DncMercy Health St. Rita'S Medical CenterCombronson methodist hospital on above:Performed By: #### LIPID, TSH #### [facility] [address] [place] [address] [address] Emmanuel HillmanCholesterol in LDL [Mass/Vol]87.6 mg/dLMain Campus Medical CenterComment on above:Performed By: #### LIPID, TSH #### [facility] [address] [place] [address] [address] Emmanuel Trent.total/Cholesterol in HDL [Mass ratio]3.4 {ratio} NormalMercy Health St. Rita'S Medical CenterCombronson methodist hospital on above:Performed By: #### LIPID, TSH #### [facility] [address] [place] [address] [address] Emmanuel Aviles NORMAL> or = 60 mg/dl - LOW CARDIOVASCULAR RISK <40 mg/dl - HIGH CARDIOVASCULAR RISKMain Campus Medical CenterComment on above:Performed By: #### LIPID, TSH #### [facility] [address] [place] [address] [address] Emmanuel Ocampo CALC NORMALSEE [facility] Health CenterComment on above:Result Comment: <100 mg/dl OPTIMAL 100 - 129 mg/dl NEAR OR ABOVE OPTIMAL 130 - 159 mg/dl BORDERLINE HIGH 160 - 189 mg/dl HIGH >190 mg/dl VERY HIGH Performed By: #### LIPID, TSH #### [facility] [address] [place] [address] [address] Emmanuel HillmanTriglyceride [Mass/Vol]87 mg/dLNormal<=150[facility] Comment on above:Performed By: #### LIPID, TSH #### [facility] [address] [place] [address] [address] Emmanuel Ball CALC17.4 mg/dLMain Campus Medical CenterComment on above: Performed By: #### LIPID, TSH #### [facility] [address] [place] [address] [address] Emmanuel Gunn 90-69-7460YPL4.614 uIU/mLNormal0.358-3.740[facility] Rita'S Medical CenterCombronson methodist hospital on above:Performed By: #### LIPID, TSH #### [facility] [address] [place] [address] Dr. Emmanuel Conway [facility] HospitalComment on above: Result Comment: <0.34 UIU/ml HYPERTHYROID 0.34-5.60 UIU/ml EUTHYROID >5.60 UIU/ml HYPOTHYROIDPerformed By: #### LIPID, TSH #### [facility] [address] [place] [address] Dr. Emmanuel HillmanProvider Letter [facility] TALIHINAadan 21-26-8640Qrajisiv Letter [facility] [address], [address] [place] [address] Re: JUNI HODGES Date of : 1960 Thank you for your referral of Juni Hodges who was seen on consultation for abdominal pain, Right upper quadrant pain and nausea with vomiting. I have enclosed my consultation note for your review. I will be happy to follow Juni. Sincerely, Raymond Davalos MD General SurgeryNoMedina HospitalAmbulatory Clinical Summaryon 55-65-1305Vybzakzsci Clinical Summary {r7-35-4h-9b-b2-5b-48-7q-c3-t8-4m-i3-14-89-64-1c}CD:549223EaopipObownwMedina HospitalGastroenterology Office/Clinic Noteon 37-09-1856Khdmxynefmzzcqts Office/Clinic NoteChief Complaint f/u EGD/Colon HPI Staff [...] after patient consented to recording for virtual home staging specialist and provider reviewed before signing. ORALIA: Dona Ramires. Follow-up With When Contact (more content not included)...[place] [facility] HospitalComment on above:Result Comment: Electronically Signed By: Dona Ramires R\.br\Date and Time Signed: 08/15/21 14:52 EDT\.br\Electronically Co-Signed By: Raman HENRY MD\.br\Date and Time Co-Signed: 08/19/21 09:50 EDTReminderson 74-86-9947Rrzunjawk From: Raman HENRY MD To: [facility] - Clinical; Sent: 08/15/2021 13:23:07 EDT Show up: 08/15/2021 13:23:00 EDT Subject: Ambulatory Reminder repeat colonoscopy in 5 years Reminder/RecallNoMedina HospitalCoding Summary.on 07-12-2021 Coding Summary. CD:[id number]:[id number]+PGhlYWQ+RU7HDFQcU39qeAOnmZ4TI5sWXC3DDUMUEVNRDX8JTN4zm BX2WWgiP6LajjPx [file] IGNv (more content not included)...NormalNovant Health Rowan Medical Centerlorene [facility] CenterUS Abdomen, Limitedon 04-24-9581UN Abdomen, LimitedExam Date/Time: 06/25/2021 08:39 EDT Reason [...] Drake Singh MD Transcribed by: VIRGIL Technologist: [facility]. [facility] HospitalConsent for Treatmenton 09-41-4406Goocsgw for Treatment [id number]#1.00CD:127NoMedina HospitalIntraOperative Documentson 38-11-8583VmteuQqtgsgpap Documents [id number]#1.00CD:127[facility] HospitalPostoperative Documentson 93-15-4939Wcdjikoopqqaa Documents [id number]#1.00CD:127[facility] HospitalCoding Summary.on 14-93-3649Vdxrqg Summary. CD:766952JR:3790869VUq1zRb+PGhlYWQ+DA9LVLCkU00hpOZvjH9DZ8mPAV5BQIRZOXBMVM5KYF5bz EQ0ILgjX6SwliTx [file] IGNv (more content not included)...[facility] HospitalMain OR Intraoperative Recordon 73-81-7982Equb OR Intraoperative RecordIntraOp Document Type FT Summary Primary Physician: Raman HENRY MD Finalized Date/Time: 06/17/21 09:30:46 Pt. Name: JUNI HODGES Willi/Sex: 1960 Female Med Rec #: [id number] Physician: Raman HENRY MD Financial #: [id number] Pt. Type: O Room/Bed: / Admit/Disch: 06/12/21 [...] Kay RN, Mikayla Toth Role Performed Anesthesiologist Motel Manager - Primary Scrub - Primary Raiser Helper Time In 06/12/21 12:49:00 06/12/21 12:49:00 06/12/21 [...] and tissue Entry 1 Skin Integrity Intact, [place], Warm, and Skin Abnormality No Dry Outcomes [...] a result of positioning (more content not included)...[facility] HospitalConsenton 36-6[id number]#1.00CD:[address] [place], [place] [address]Discharge Instructionson 76-58-6103Ckqjnybzl Instructions [id number]#1.00CD:127NoMedina HospitalIntraOperative Documentson 55-37-1993GchyhLsuiqobky Documents [id number]#1.00CD:127[facility] HospitalIntraOperative Documents [id number]#1.00CD:[address] [place], [place] [address]CBC w/Indiceson 72-09-8940Khdzyjybwir distribution width (RBC) [Ratio]15.6 %High10.9-14.2FOhioHealthComment on above:Performed By: #### 8137648, 97457010, 3356959, 5413726 ####[place] [address] [address]Qumsaaavhq (Bld) [Volume fraction] 36.8 %Txzfnx55.0-46.0St. Rita'S HospitalComment on above:Performed By: #### 3243368, 33524458, 1242223, 8576008 ####[address] [address]Bbsudzlcst (Bld) [Mass/Vol]12.5 g/dL Hlpmzi61.0-16.0St. Rita'S HospitalComment on above:Performed By: #### 2241078, 16330474, 1611645, 5909398 ####[place] [address] [address]ONG (RBC) [Entitic mass]28.6 pgNormal 27.0-34.0St. Rita'S HospitalComment on above:Performed By: #### 9490086, 28501939, 1610168, 8167322 ####[place] [address] [address]EWAJ (RBC) [Mass/Vol]33.8 g/qEHykvdd29.4-36.0St. [facility]'S HospitalComment on above:Performed By: #### 6245379, 41113152, 9834027, 1086770 ####[address] [address]FAU (RBC) [Entitic vol]84.5 hOOqutrz93.0-100.0St[address] Rita'S HospitalComment on above:Performed By: #### 0590297, 21518144, 7891465, 1511325 ####[address] [address]Oibkuhgw mean volume (Bld) [Entitic vol]8.0 fLNormal6.4-10.8St. Rita'S HospitalComment on above:Performed By: #### 6520415, 79358859, 8505373, 7550410 ####[address] [address]Qifdwdiuo (Bld) [#/Vol]186.0 E9/XAykswl140.0-500.0St. [facility]'S HospitalComment on above:Performed By: #### 2177181, 33392123, 2098865, 4271592 ####[address] [address]KDQ (Bld) [#/Vol]4.4 E12/LNormal4.3-5.9St. Rita'S HospitalComment on above: Performed By: #### 0131281, 65511999, 8711416, 3525626 ####[address] [address]QFD corrected for nucl RBC Auto (Bld) [#/Vol]5.7 E9/LNormal4.0-11.0St. Rita'S HospitalComment on above:Performed By: #### 5333118, 58033625, 3268833, 9333528 ####[address] [address]YMDwm 06-12-2021 Albumin [Mass/Vol]3.9 g/dLNormal3.3-5.0St. Rita'S HospitalComment on above:Performed By: #### 2703192, 90955378, 2193065, 6940503 ####[address] [address]Pgysbgn/Globulin (S) [Mass conc ratio]1.8Nryizd6.1-2.2FOhioHealthComment on above: Performed By: #### 0963712, 22245699, 0230002, 9941184 ####[address] [address]FBP [Catalytic activity/Vol]56 Int._Unit/VScysod03-56LdlcxcSt. Rita'S HospitalComment on above:Performed By: #### 1356520, 76231190, 6585396, 2123394 ####[address] [address]JVW No additional P-5'-P [Catalytic activity/Vol]23 Int._Unit/LNormal6-46St. Rita'S HospitalComment on above:Performed By: #### 8832654, 24833627, 7699818, 5120308 ####[address] [address]Ygyph gap [Moles/Vol] 13 mmol/LNormal6-16St. Rita'S HospitalComment on above:Performed By: #### 7111222, 53514881, 6023261, 3644504 ####[address] [address]KOV [Catalytic activity/Vol]18 Int._Unit/LNormal5-43St. Rita'S HospitalComment on above:Performed By: #### 1144858, 91107145, 3720120, 3209842 ####[address] [address]Oupwnbxdm [Mass/Vol]0.6 mg/dLNormal 0.0-1.1FOhioHealthComment on above:Performed By: #### 1971764, 23306925, 3417641, 2184500 ####[address] [address]Hfbfgov [Mass/Vol]9.0 mg/dLNormal8.9-11.1FOhioHealthComment on above:Performed By: #### [id number], [id number], 9651216, 5650389 ####[address] [address]Pivrucqc [Moles/Vol]111 mmol/IEpuwyg755-868HwscnwSt. Rita'S HospitalComment on above:Performed By: #### [id number], 99812212, 5694125, 9419829 ####[facility] [place], [place] [address]IP9 [Moles/Vol]25 mmol/KMjnbmw70-44YzkiqaSt. Rita'S HospitalComment on above:Performed By: #### 0691728, 91000097, 3239245, 5980981 ####[address] [place], [place] [address]Lpyggukyzi [Mass/Vol] 0.7 mg/dLNormal0.5-1.3FOhioHealthComment on above:Performed By: #### 6162668, 24730882, 9159265, 3715144 ####[address] [address]Kjazsopa (S) [Mass/Vol]3.4 g/dLNormal 1.4-4.0St. Rita'S HospitalComment on above:Performed By: #### [id number], 11441477, 1624405, 9774722 ####[address] [address]Krrlnvx [Mass/Vol]99 mg/cKHllrge85-858FxpaewSt. Rita'S HospitalComment on above:Result Comment: If this glucose result represents a fasting glucose, interpretation should refer tothe following reference range: 55-99 mg/dLPerformed By: #### [id number], 71551125, 3264111, 2429035 ####[address] [address]Ffejugkzt [Moles/Vol]3.6 mmol/LNormal3.5-5.3FOhioHealthComment on above: Performed By: #### 9829080, 55769680, 4741140, 6999825 ####[address] [place], [place] [address]Ibqcdul [Mass/Vol]7.3 g/dL Normal6.0-7.8St. Rita'S HospitalComment on above:Performed By: #### 9887802, 14191315, 5369949, 1961312 ####[facility] [address] [place], [place] [address]Tizhei [Moles/Vol]145 mmol/LNormal 135-145St. Rita'S HospitalComment on above:Performed By: #### 1544491, 60546002, 6805052, 1042152 ####[facility] [address] [place], [place] [address]Oiqn nitrogen [Mass/Vol]10 mg/dLNormal5-21St. Rita'S HospitalComment on above:Performed By: #### 3216294, 85261696, 6109316, 0366374 ####[facility] [address] [place], [place] [address]Zwnz nitrogen/Creatinine [Mass ratio]14 No NwgurZzlfvw29-85 [address] Rita'S HospitalComment on above:Performed By: #### 4869922, 85974925, 9395773, 0738444 ####[facility] [address] [place], [place] [address]Drrrlpv for Treatmenton 65-98-4172Fukjbyu for [id number]#1.00CD:127NormRegency Hospital ToledoEndoscopic Procedure Report - Otheron 88-57-7056Ymlbcfkmdw Procedure Report - OtherPatient: JUNI HODGES Age: [...] current medications. Return to activities:: After 24 hours.[facility] Valley HospitalComment on above:Result Comment: Electronically Signed By: Raman HENRY MD\.br\Date and Time Signed: 06/12/21 13:09 EDTOther Comment: Missing Attachment - attachment storage system not supported [id number] Can be viewed in source systemMissing Attachment - attachment storage system not supported [id number] Can be viewed in source systemEndoscopic Procedure [...] weeks 3. Gallbladder ultrasound, CBC, CMP and lipaseNormalSt. Rita'S Hospital Comment on above:Result Comment: Electronically Signed By: Raman HENRY MD\.br\Date and Time Signed: 06/12/21 13:08 EDTOther Comment: Missing Attachment - attachment storage system not supported [id number] Can be viewed in source systemMissing Attachment - attachment storage system not supported [id number] Can be viewed insour systemMissing Attachment - attachment storage system not supported [id number] Can be viewed in source systemMissing Attachment - attachment storage system not supported [id number] Can be viewed in source system Inpatient Patient Summaryon 06-23-9354Vlccmpjpx Patient Summary [address] [address] [facility] Clinical Discharge Instructions PERSON INFORMATION Name: [...] Cap-DR) 1 Capsules By Mouth every day. Comment:NormalSt. Rita'S HospitalLipase Levelon 02-23-9788Uxsgvu [Catalytic activity/Vol]23 U/QKxunzk98-18DojnypSt. Rita'S HospitalComment on above:Performed By: #### [id number], 84228723, 1342714, 3496453 ####[facility] [address] [place], [place] [address]Ejuh OR PACU I Record on 26-56-7944Ahbm OR PACU I RecordPACU Phase I Document Type FT Summary Primary Physician: Raman HENRY MD Finalized Date/Time: 06/12/21 14:39:20 Pt. Name: JUNI HODGES /Sex: 1960 Female Med Rec #: [id number] Physician: Raman HENRY MD Financial #: [id number] Pt. Type: O Room/Bed: / Admit/Disch: 06/12/21 [...] Signed By: Dolores De Leon RN 06/12/21 14:39NoMedina HospitalMain OR Preoperative Recordon 90-93-4969Gsrp OR Preoperative RecordHolding Area Document Type FT Summary Primary Physician: Raman HENRY MD Finalized Date/Time: 06/12/21 11:42:13 Pt. Name: JUNI HODGES /Sex: 1960 Female Med Rec #: [id number] Physician: Raman HENRY MD Financial #: [id number] Pt. Type: O Room/Bed: / Admit/Disch: 06/12/21 [...] Signatures Signed By: Rosie Bravo RN 06/12/21 11:42NoMedina HospitalMonitor Record on 12-54-1231Nhwjfuf [id number]#1.00CD:127 [facility] HospitalOutpatient Surgery Discharge Instructionon 06-34-0212Rpuaasftrl Surgery Discharge Instruction [id number] Patient Discharge Instructions PERSON INFORMATION Name: JUNI HODGES Date of : 1960 Current Date: 06/12/2021 13:10:48 PHYSICIANS Admitting Physician: MARTÍN ARMAS, [facility] Discharge Diagnosis: Esophageal inlet patch JUNI HODGES [...] to serve you. Thank you for choosing [place] HERE ARE THE MEDICATION CHANGES THAT OCCURRED [...] By Mouth every day. PATIENT EDUCATION INFORMATION Instructions:[facility] HospitalPatient Education - Texton 55-55-7975Anhlefv Education - TextNoMedina HospitalProgress Note-Physicianon 61-16-8081Qdrspgem Note-PhysicianPatient: JUNI HODGES Age: 60 years Sex: [...] report . Respiratory: Adequate air exchange with voodoo of preoperative function.. Cardiovascular: Cardiovascular function is stable and has returned to preoperative levels.. Neurologic: Pt has returned to preoperative baseline.. Review / Management Condition: Stable. Assessment Anesthetic outcome No anesthetic complications noted. Plan Transfer/ Discharge: Patient can be discharged from PACU when criteria met. Condition good.[facility] Valley HospitalComment on above:Result Comment: Electronically Signed By: [...] 1 EA, Refill(s) 0, PER PHYSICIAN INSTRUCTIONS, [facility], 166, cm, 04/23/21 [...] data available Respiratory: Adequate air exchange with voodoo of preoperative function.. Cardiovascular: Cardiovascular function is stable and has returned to preoperative levels.. Neurologic: Pt has returned to preoperative baseline.. Review / Management Condition: Stable. Assessment Anesthetic outcome No anesthetic complications noted. Plan Transfer/ Discharge: Patient can be discharged from PACU when criteria met. Condition good.[facility] Valley HospitalComment on above:Result Comment: Electronically Signed By: Albert Smith JR, DO 79-13-7379QYE/1.73 sq M.predicted among blacks MDRD (S/P/Bld) [Vol rate/Area]mL/min/{1.73_m2}Normal >=59St. Rita'S HospitalComment on above:Order Comment: Order added by Discern Expert.Result Comment: eGFR is race adjusted. AA=. Performed By: #### 4748514, 95866635, 1439336, 9261681 ####[facility] [address] [place], [place] [address]SRY/1.73 sq M.predicted among non-blacks MDRD (S/P/Bld) [Vol rate/Area]mL/min/{1.73_m2}Normal>=59St. Rita'S HospitalComment on above:Order Comment: Order added by Discern Expert. Result Comment: Chronic kidney disease could be indicated at eGFR's of less than 60 mL/min/1.73m2. Kidney failure is indicated at less than 15 mL/min/1.73m2. Performed By: #### [id number], 38222970, 9845427, 3277372 ####[facility] [address] [place], [place] [address]Taswlkfv Note-Physicianon 39-13-2495Qdizwgcp Note-PhysicianPatient: JUNI HODGES Age: 60 years Sex: [...] 1 EA, Refill(s) 0, PER PHYSICIAN INSTRUCTIONS, [facility], 166, cm, 04/23/21 [...] review: No qualifying data available . Plan [place] [employer] Anesthesiologists (ASA) physical status classification: Class II. Anesthetic Preoperative Plan Anesthesia: Monitored anesthesia care and general anesthesia if required.. Anesthetic plan, risks, benefits, and alternatives discussed with the patient and/or family. Pt. and/or family present and agree to proceed as planned.. Discussed the importance of abstaining from tobacco products, and offered counseling if desired..[facility] Valley HospitalComment on above:Result Comment: Electronically Signed By: Albert Smith JR, DO.chacho\Date and Time Signed: 06/11/21 14:42 EDT Vital Signs Date TimeVital SignValuePerforming MqzwbysqcWktehgps61-58-8576 10:090400Body qwierl088.56 cmJessica Mojgan DO Work Phone: [phone] [place], [place] [address]10-29-2025 10:09-0400 Body mass index (BMI) [Ratio]37.5 kg/c4Tjutnfw Mojgan DO Work Phone: [facility]10-29-2025 10:09-0400 Body lyhyqc19.33 kgJessica Mojgan DO Work Phone: [facility]10-29-2025 10:09-0400 Diastolic blood pgnemrcu16 mm[Hg]Maddison Mojgan DO Work Phone: [phone]-[facility]10-29-2025 10:09-0400 Heart rate69 /minJessica Mojgan DO Work Phone: [phone])162-[facility]10-29-2025 10:09-0400 Systolic blood snnuiyzx035 mm[Hg]Maddison Mojgan DO Work Phone: [facility]10-16-2025 10:55-0400 Body iauycc875.56 cmCatherine Ly DO Work Phone: [phone])[address] [place], [place] 1782010-16-2025 10:55-0400 Body mass index (BMI) [Ratio]37.5 kg/o7Jpuiehxpi Ly DO Work Phone: 1(589)[address] [place], [place] 1782010-16-2025 10:55-0400 Body riebra29.33 kgCatherine Ly DO Work Phone: [phone])[address] [place], [place] 1782010-16-2025 10:55-0400 Diastolic blood lyhfirhy14 mm[Hg]Marlen Ly DO Work Phone: [phone])[address] [place], [place] 1782010-16-2025 10:55-0400 Heart rate73 /minCatherine Ly DO Work Phone: 1(704)[address] [place], [place] 1782010-16-2025 10:55-0400 Respiratory rate20 /minCatherine Ly DO Work Phone: [phone])[address] [place], [place] 1782010-16-2025 10:55-0400 SaO2% (BldA) [Mass fraction]96 %Marlen Ly DO Work Phone: 1(508)[address] [place], [place] 1782010-16-2025 10:55-0400 Systolic blood hgfioxrw536 mm[Hg]Marlen Ly DO Work Phone: 1(359)[address] [place], [place] 1782007-30-2025 14:35-0400 Diastolic blood rtazwolz98 mm[Hg]Charo Baker MD Work Phone: 1(696)[address] [place], [place] 6448507-30-2025 14:35-0400 Heart rate74 /Curtis Baker MD Work Phone: 1(807)[address] [place], [place] 6448507-30-2025 14:35-0400 Respiratory rate17 /Curtis Baker MD Work Phone: 1(515)[address] [place], [place] 6448507-30-2025 14:35-0400 SaO2% (BldA) [Mass fraction]94 %Charo Baker MD Work Phone: 1(217)[address] [place], [place] 6448507-30-2025 14:35-0400 Systolic blood gdsqyioh656 mm[Hg]Charo Baker MD Work Phone: 1(931)[address] [place], [place] 6448507-30-2025 12:22-0400 Body jeqgcm323.56 cmCharo Baker MD Work Phone: 1(108)[address] [place], [place] 6448507-30-2025 12:22-0400 Body tzsyyf54.25 kgCharo Baker MD Work Phone: 1(211)[address] [place], [place] 6448507-14-2025 10:22-0400 Body oveeqn705.56 cmCharo Baker MD Work Phone: 1(636)[address] [place], [place] 6448507-14-2025 10:22-0400 Body mass index (BMI) [Ratio]37.8 kg/m2Charo Baker MD Work Phone: 1(489)[address] [place], [place] 6448507-14-2025 10:22-0400 Body .79 kgCharo Baker MD Work Phone: 1(431)[address] [place], [place] 6448507-14-2025 10:22-0400 Diastolic blood mnfxkhiz80 mm[Hg]Charo Baker MD Work Phone: 1(731)[address] [place], [place] 6448507-14-2025 10:22-0400 Heart rate78 /minCharo Baker MD Work Phone: 1(534)[address] [place], [place] 6448507-14-2025 10:22-0400 Systolic blood kiwqjide282 mm[Hg]Charo Baker MD Work Phone: 1(487)[address] [place], [place] 6448507-09-2025 10:50-0400 Body gsxuku082.1 cmZachary Aldana MD Work Phone: [facility] HospitalVwvlbwgawy34-14-8919 10:50-0400Body mass index (BMI) [Ratio]37.28 kg/m2Zachary Aldana MD Work Phone: [facility] HospitalZbpzfavdyr16-05-3417 10:50-0400Body temperature 95.7 [degF]Zachary Aldana MD Work Phone: [facility] HospitalHvulgndivc12-37-9966 10:50-0400Body zfyjnv290.61 kgZachary Aldana MD Work Phone: [facility] HospitalXximzvokyc36-64-5677 10:50-0400Diastolic blood mm[Hg]Zachary Aldana MD Work Phone: [facility] HospitalZtqwwqlwrc55-21-7335 10:50-0400Heart rate91 /min Zachary Aldana MD Work Phone: [facility] HospitalCzbsqlsirt59-54-8087 10:50-0400Respiratory rate22 /minZachary Aldana MD Work Phone: [facility] HospitalIpnouxtrww28-44-8403 10:50-5932LhX9% (BldA) [Mass fraction]97 %Zachary Aldana MD Work Phone: [facility] HospitalCkcbpqxfpg89-79-7583 10:50-0400Systolic blood nxvlhlus256 mm[Hg]Zachary Aldana MD Work Phone: [facility] HospitalRzopbtgzok83-23-2455 16:28-0400Body temperature 97.2 [degF]Leroy Zacarias DO Work Phone: [facility] HospitalPxjafgdviy30-02-7864 16:28-0400Diastolic blood uhtacgta66 mm[Hg]Leroy Tesmarshall ALEJANDRE Work Phone: [facility] HospitalQmstrcnkzb83-20-5269 16:28-0400Heart rate85 /min Leroy Finamarshall ALEJANDRE Work Phone: [facility] HospitalNzcwygszyt24-67-3961 16:28-8569PpC9% (BldA) [Mass fraction]97 %Leroy Finamarshall ALEJANDRE Work Phone: [facility] CareGemfdstjch60-29-3335 16:28-0400Systolic blood tdmzvkak926 mm[Hg]Leroy Zacarias DO Work Phone: [facility] CareRuuiqbqdrv54-02-9530 10:25-0400Body mafptn544.1 cmZachary Aldana MD Work Phone: [facility] CareKxyshibqff24-40-0465 10:25-0400Body mass index (BMI) [Ratio]36.44 kg/m2Zachary Aldana MD Work Phone: [facility] HospitalSuphkctpnt70-41-9869 10:25-0400Body temperature 97.3 [degF]Zachary Aldana MD Work Phone: [facility] HospitalXylekjztoy44-34-0288 10:25-0400Body ecazao11.34 kgZachary Aldana MD Work Phone: [facility] HospitalEvvjgtzrpr83-41-9801 10:25-0400Diastolic blood cjpduumd41 mm[Hg]Zachayr Aldana MD Work Phone: [facility] HospitalJpuggnnarh41-15-0237 10:25-0400Heart rate99 /min Zachary Aldana MD Work Phone: [facility] HospitalNhiljdhlnz96-92-7046 10:25-0400Respiratory rate20 /minZachary Aldana MD Work Phone: [facility] HospitalAwmlhilcdl09-50-8939 10:25-9828UiQ5% (BldA) [Mass fraction]96 %Zachary Aldana MD Work Phone: [facility] HospitalZguqtkijii46-23-9685 10:25-0400Systolic blood phodqvlk053 mm[Hg]Zachary Aldana MD Work Phone: [facility] HospitalDonyblxjyl28-44-7601 13:01-0500Body mfigfx977.1 cmBen Turpin FURNACE OPERATOR [employer] Work Phone: [facility] HospitalHkqnwyfjml01-73-1792 13:01-0500Body mass index (BMI) [Ratio]36.01 kg/q7Eajiasmz Turpin F[employer]NACE [employer]ATOR [employer] Work Phone: [facility] HospitalYqpyzumpaf91-11-7370 13:01-0500Body temperature 97.2 [degF]Ben Turpin FURNACE OPERATOR [employer] Work Phone: [facility] HospitalTpbdvyqked49-30-8728 13:01-0500Body ykcptm39.16 kgBen Trevinotrick FURNACE OPERATOR [employer] Work Phone: [facility] HospitalXwidkshgij87-49-0259 13:01-0500Diastolic blood xrteteir39 mm[Hg]Ben Maopatrick FURNACE OPERATOR [employer] Work Phone: [facility] HospitalTyndwejyzq91-05-7153 13:01-0500Heart nvme086 /min Ben Maopatrick FURNACE OPERATOR [employer] Work Phone: [facility] HospitalEjdyboizvh06-43-3357 13:01-0500Respiratory rate16 /minBen Trevinotrick FURNACE OPERATOR [employer] Work Phone: [facility] HospitalDvuhqkkbpg25-40-1384 13:01-9606NxF0% (BldA) [Mass fraction]95 %Ben Trevinotrick FURNACE OPERATOR [employer] Work Phone: [facility] HospitalKgnflwffnv04-22-4275 13:01-0500Systolic blood mm[Hg]Ben Trevinotrick FURNACE OPERATOR [employer] Work Phone: [facility] HospitalPehbfaisar55-14-5008 12:30-0500Body .1 cmProm[facility]02-25-2024 12:30-0500Body mass index (BMI) [Ratio]36.3 kg/s1HrrbmjmswPromedica Bay Park Hospital02-25-2024 12:30-0500Body udnkramfnhq53.2 [degF][facility]02-25-2024 12:30-0500Body aqaloc98.1 kgPromedica Bay Park Hospital02-25-2024 12:30-0500Heart rate74 /[facility]02-25-2024 12:30-0500Respiratory rate18 /[facility]02-25-2024 12:30-4954YeA7% (BldA) [Mass fraction]97 %[facility] Encounters Encounter DateEncounter TypeCare ProviderFacilityStart: 08-30-2025 End: 82-62-3526pgnqwtqvfuSlfqctj Mojgan DO Work Phone: [phone]-Pkuocwubi Health GastroStart: 08-30-2025 End: 03-35-2574Mzxbnbg encounter Kay Walter APRN-[facility] Work Phone: Start: 08-17-2025 End: 23-51-7404euizecijdtKdlchsnmd L Ly DO Work Phone: [facility] Work Phone: Start: 08-17-2025 End: 15-13-2009Oonvlos encounter procedureJejasen Mojgan DO-[facility] [place] Work Phone: Start: 06-21-2025 End: 61-11-5475culmvyxokxFILBRLicking Memorial Hospital Start: 54-61-5229utxykeffrgRBWAWLicking Memorial Hospital Start: 06-20-2025 End: 93-83-4174qgjqgasjdjDOKCSBarnesville Hospital Start: 06-01-2025 End: 64-18-8459Vykorrqnu encounterMarsharri Aldana MD Work Phone: [facility] FMStart: 05-31-2025 End: 59-91-3112ygswneajxgDbcpizlvq L LyFacility:[facility] Hospitaltart: 92-65-3085Jwb-patient / Non-visitCatherine L Ly DO-[facility] Work Phone: Start: 05-19-2025 End: 74-93-1222Pyiwsafqv Result EncounterZachary Aldana MD Work Phone: noms External Department UnsolicitedStart: 05-19-2025 End: 60-72-6033Njimdiirw Result EncounterZachary Aldana MD Work Phone: noms External Department UnsolicitedStart: 05-15-2025 End: 88-38-0159smfhouzryyCps E Knight MD Work Phone: [facility] Work Phone: Start: 05-15-2025 End: 47-16-1168Eythkji encounter Kay [facility]NUn[facility] Work Phone: Start: 05-10-2025 End: 12-22-8328Rwqkwz Xander Aldana MD Work Phone: [facility] FMStart: 05-10-2025 End: 90-85-0802Hsaazo Xander Aldana MD Work Phone: [facility] FMStart: 05-10-2025 End: 42-13-7516Ippgpr outpatient visit 25 minutesZachary Aldana MD Work Phone: [facility] FMComment on above:Degeneration of intervertebral disc of lumbar region with discogenic back pain (Primary Dx); Gastroesophageal reflux disease without esophagitis; Globus sensationStart: 05-10-2025 End: 93-72-8412cbwlscjdmdZLQG NADERERNot AvailableStart: 04-25-2025 End: 66-97-0146eqixthgbifAHKDXOC G TESMONDNot AvailableStart: 04-25-2025 End: 85-70-5523Xevvou outpatient visit 25 minutesLeroy Zacarias DO Work Phone: NOXK SWS UCComment on above:Strain of left calf muscle (Primary Dx); Left knee pain, unspecified chronicityStart: 04-24-2025 End: 41-87-3719Gefnvxjnl Radha Aldana MD Work Phone: [facility] FMStart: 02-23-2025 End: 13-30-2224Tafveo Xander Aldana MD Work Phone: [facility] FMStart: 02-23-2025 End: 06-53-0328Cqdwej Xander Aldana MD Work Phone: [facility] FMStart: 02-23-2025 End: 22-56-6425Frxfzyzal Result Radha Aldana MD Work Phone: [facility] External Department UnsolicitedStart: 02-23-2025 End: 57-96-8589cdueocvhscGABP NADERERNot AvailableStart: 02-23-2025 End: 68-02-0189Xqqioa outpatient visit 25 minutesMarc Naderer MD Work Phone: [facility] FMComment on above:Chronic bilateral low back pain with right-sided sciatica (Primary Dx); Gastroesophageal reflux disease without esophagitis; Class 2 severe obesity due to excess calories with serious comorbidity and body mass index (BMI) of36.0 to 36.9 in adult (CMS/HCC); Dyslipidemia (CMS/HCC)Start: 12-16-2024 End: 09-18-3987Wumouujqq Result EncounterBrittany Turpin FURNACE OPERATOR [employer] Work Phone: noms External Department UnsolicitedStart: 12-16-2024 End: 37-34-9212Qruopfqfg Result EncounterBrittany Turpin FURNACE OPERATOR [employer] Work Phone: [facility] External Department UnsolicitedStart: 11-30-2024 End: 65-16-7044Ucxgsi flowsheetBrittany Turpin FURNACE OPERATOR [employer] Work Phone: [facility] FMStart: 11-30-2024 End: 00-91-6614Jpreio flowsheetBrittany Turpin FURNACE OPERATOR [employer] Work Phone: [facility] FMStart: 11-30-2024 End: 30-39-6685Nbclsm outpatient visit 15 minutesBrittany Turpin FURNACE OPERATOR [employer] Work Phone: [facility] FMComment on above:Other hyperlipidemia (CMS/HCC) (Primary Dx); Viral upper respiratory tract infection; Encounter for screening mammogram for malignant neoplasm of breast; Gastroesophageal reflux disease without esophagitisStart: 11-30-2024 End: 81-52-8572urwunzykcsPLUPKAZK FITZPATRICKNot AvailableStart: 11-28-2024 End: 54-00-7335JbbjkwIzsdnnvi Turpin FURNACE OPERATOR [employer] Work Phone: [facility] FMComment on above:Other specified hypothyroidism (CMS/HCC)Hyperlipidemia, unspecified hyperlipidemia type (CMS/HCC)Start: 05-25-2024 End: 25-25-5843Exgfuvewy Result Ora Chapin MD Work Phone: n[facility] External Department UnsolicitedStart: 05-25-2024 End: 70-08-8908Bfcbchewu Result EncounterSallison Chapin MD Work Phone: n[facility] External Department UnsolicitedStart: 05-24-2024 End: 92-22-8192Vyigptrtq Result EncounterSallison Chapin MD Work Phone: n[facility] External Department UnsolicitedStart: 05-24-2024 End: 87-95-6842Hobbbzslr Result EncounterSallison Chapin MD Work Phone: noms External Department UnsolicitedStart: 05-17-2024 End: 41-82-3280Uzdjgng encounter statusChachonaila Maopatrick YENIFER Work Phone: noms HealthcareStart: 05-17-2024 End: 08-84-7339ojirfovhcwJYOCMK FABjWADNot AvailableStart: 02-02-2024 End: 19-79-5545Yemiwvyrh Result EncounterSallison Chapin MD Work Phone: noms External Department UnsolicitedStart: 02-02-2024 End: 63-84-6061Emvzcazwp Result EncounterSallison Chapin MD Work Phone: noms External Department UnsolicitedStart: 12-27-2023 End: 60-11-5590tsjdgazywrLjdhttobiRegional Medical Center Work Phone: Start: 12-27-2023 End: 45-28-5474Lwfvgwq encounter procedureM[facility] Work Phone: Start: 12-16-2022 End: 93-67-0034dkjsqxcuhlTLFNHH H FANODFacility:B3Yfvzb: 09-24-2022 End: 56-83-1894sotddqdvgcNXEQXT H FAWWADFacility:T7Mdrlg: 05-13-2022 End: 60-59-5915fnwmvyfndcWMNWJ B APLINGFacility:A0Pmhiq: 04-08-2022 End: 27-10-4756oadzjsnrrjVMJLKK H FAWWADFacility:V6Ckcgb: 03-25-2022 End: 69-02-2799ingjwwwikhRFKIWN H FAWWADFacility:H1 Procedures DateProcedureProcedure DetailPerforming ClinicianStart: 65-69-9608AZ LUMBAR SPINE WO CONMarc Kaushik ARMAS Work Phone: Start: 11-94-8622SL LUMBAR SPINE 2 OR 3VMarc Kaushik ARMAS Work Phone: Start: 80-44-4761OZ TOMOSYNTHESIS SCREENING BIBrittany Turpin FURNACE OPERATOR [employer] Work Phone: Start: 63-45-4660FzdizakzwuxMxqtcjtc Turpin FURNACE OPERATOR [employer] Work Phone: Start: 45-06-8916BH CHEST WO Otto Chapin MD Work Phone: Start: 62-26-9447JW DEXA AXIAL SKELETONShaikh Tavares ARMAS Work Phone: Start: 02-91-2053QQ CHEST 2VSallison Chapin MD Work Phone: Start: 35-60-5151KfkuaryamonNtwxwjlw Turpin FURNACE OPERATOR [employer] Work Phone: Start: 34-03-0379TclcxacdjepOlfmazdn Turpin FURNACE OPERATOR [employer] Work Phone: Plan of Treatment DateCare ActivityDetailAuthorStart: 42-34-4193Nmjhwoxil for malignant neoplasm of colonNOMS HealthcareStart: 95-78-2352Mzvecbwvs for malignant neoplasm of breastMammogramNOMS HealthcareStart: 58-31-5529Qvaptrxdp for malignant neoplasm of cervixCervical Cancer ScreeningNOMS HealthcareComment on above:Postponed from 1989 (Patient Refused)Start: 08-17-2025 End: 32-47-5096Jilysld encounter fgbvokvff37/16/2025 11:00 AM EDT Office Visit [facility] [address] [place] [id number] Zachary Aldana MD [address] [place] [address] [facility] FMStart: 12-96-4664Cnkuibiqt vaccinationInfluenza Vaccine (#1)[facility] HospitalStart: 05-31-2025 End: 71-09-9622NeraahxshMercy Health Kings Mills Hospitaltart: 05-30-2025 End: 95-25-6183Ljjkpmk encounter procedureNOWAGON[facility] FMStart: 05-23-2025 End: 65-88-0212Lwrdpdc encounter aquifajfm90/22/2025 10:15 AM EDT Office Visit [facility] [address] [place] [id number] Zachary Aldana MD [address] [place] [address] [facility] FMStart: 05-10-2025 End: 66-69-2971DZ Lumbar spine WO contrastMR lumbar spine wo contrast Imaging Routine Degeneration of intervertebral disc of lumbar region with discogenic back pain Expected: 05/10/2025, Expires: 05/10/2026NONM [employer] Work Phone: Comment on above:Expected: 05/10/2025, Expires: 05/10/2026Start: 05-10-2025 End: 47-88-6173Rgkcnqe encounter procedureNOWAGONER [facility] [place] FMComment on above:Arrived Start: 02-23-2025 End: 60-31-1836OR Lumbar spine 2 or 3 ViewsXR lumbar spine 2 or 3 views Imaging Routine Chronic bilateral low back pain with right-sided sciatica Expected: 02/23/2025, Expires: 02/23/2026NONM [employer] Work Phone: Comment on above:Expected: 02/23/2025, Expires: 02/23/2026Start: 57-91-1222Mjxcqxuspdnu Vaccine: 65+ Years (1 of 1 - PCV) Pneumococcal Vaccine: 65+ Years (1 of 1 - PCV)[facility] HealthcareComment on above: Postponed from 2024 (Patient Ill Today)Start: 11-30-2024 End: 27-04-9715MQ Breast - bilateral ScreeningBilateral screening mammogram Imaging Routine Encounter for screening mammogram for malignant neoplasm of breast Expected: 11/30/2024, Expires: 01/28/2026NONM [facility] Work Phone: Comment on above:Expected: 11/30/2024, Expires: 01/28/2026Start: 11-30-2024 End: 27-83-5541Wptgbqk encounter procedureNOMS CWM FMComment on above:Arrived Start: 53-51-3468Jaxmcedsp for malignant neoplasm of breastMammogramNONM HealthcareStart: 84-20-0565Gahvdmibardj Vaccine: 65+ Years (1 of 1 - PCV) Pneumococcal Vaccine: 65+ Years (1 of 1 - PCV)[facility] HealthcareStart: 07-03-2024 Influenza vaccinationInfluenza Vaccine (#1)[facility] HealthcareStart: 2009 Pneumococcal Vaccine: 65+ Years (1 of 1 - PCV)Pneumococcal Vaccine: 65+ Years (1 of 1 - PCV)[facility] HealthcareStart: 09-12-2242Hoyseulit for malignant neoplasm of cervixNOMS HealthcareStart: 16-96-5392Rlrfdhtha for malignant neoplasm of cervix Pap SmearNONM HealthcareStart: 20-04-3846Afqkvbzri for malignant neoplasm of colonNOMS HealthcareCT Unspecified body regionPromedica Bay Park Hospital DXA Skeletal system.axial Views for bone densityPromedica Bay Park HospitalPatient EducationGastritis - Discharge instructions Know your [facility] Work Phone: Stress cardiac echo study reportAdventHealth East Orlando Immunizations Immunization DateImmunizationNotesCare PliqhpdoEpofsxff18-86-8281hnffsllyb virus vaccine, unspecified formulationBrnaila Turpin FURNACE OPERATOR [employer] Work Phone: [facility] HospitalAcfviabwjy11-84-8527Njrazyxbg, Seasonal, Quadrivalent, AdjuvantedBrittany Turpin FURNACE OPERATOR [employer] Work Phone: [phone] [place], [place] [address]Ywygumoejg29-21-5187WQLE-WZK-0 (COVID-19) vaccine, mRNA, spike protein, LNP, PF, daysi-sucrose, 30 mcg/0.3 mLBrittany Turpin FURNACE OPERATOR [employer] Work Phone: [facility] HospitalUjwycfmgpp00-94-3294fhfvuvsvh virus vaccine, unspecified formulationBrittany Turpin FURNACE OPERATOR [employer] Work Phone: [phone] [place], [place] [address]Mcwtowjpjk05-27-3568rsoewb vaccine recombinant Ben Turpin FURNACE OPERATOR [employer] Work Phone: [phone] [place], [place] [address]Nvqweyyqrr67-66-7136nykgaq vaccine recombinant Ben Turpin FURNACE OPERATOR [employer] Work Phone: [phone] [place], [place] [address]Cntftbjeji28-11-2532qzrknlhmq, injectable, quadrivalent, preservative freeBrittany Turpin FURNACE OPERATOR [employer] Work Phone: [phone] [place], [place] [address]Saxtuvqbzx39-02-4195hmnmvgmeg, injectable, quadrivalent, preservative freeBrittany Turpin FURNACE OPERATOR [employer] Work Phone: [phone] [place], [place] [address]Skdnpktept22-73-4457vnfokryxz, injectable, quadrivalent, contains preservativeBrittany Turpin FURNACE OPERATOR [employer] Work Phone: [phone] [place], [place] [address]Moqqzwolyw91-55-2220cidbnccgv, injectable, quadrivalent, contains preservativeBrittany Turpin FURNACE OPERATOR [employer] Work Phone: [phone] [place], [place] [address]Leuwblyxga71-76-9533aeboshnsb, injectable, quadrivalent, preservative freeBrittany Turpin FURNACE OPERATOR [employer] Work Phone: [phone] [place], [place] [address]Dwucsvixmu90-33-6519xdoegawzh, seasonal, injectableBrittany Turpin FURNACE OPERATOR [employer] Work Phone: [phone] [place] [address] Payers DatePayer CategoryScyerClarion Hospital [id number] [address] [id number] Health Insurance [id number] 19-93-1104Vmhw-[id number] 2.0.1.103614.3.579.[id number] 2.0.1.094090.3.57[id number] 2.0.1.589335.3.579.2.13922-11-1591Ljdnijz3417001 2.840.1.608963.3.579.2.17995-23-2800Wvbpoez8705872 2.0.1.633097.3.57[id number] 2.16840.1.346437.3.57[id number] 2.16840.1.056714.3.579.[id number] 2.0.1.963206.3.579.2.[id number] 2..0.1.116672.3.579.2.506532-17-7010Cgfbowl9172568 2.0.1.831092.3.579.[id number] 2.16.840.1.217426.3.579.2.1053Kwclhmg7816501 2.0.1.691017.3.579.2.593 QpgfxygCJB891T63743 0b0x363h-mksu-3ofk-x8ww-[id number] 819d89ik-tzz7-8090-l1da-[id number] 5522a195-8361-47y4-[id number] 2.0.1.249809.3.579.2.531 Social History DateTypeDetailFacilityTobacco smoking status NHISUnknown if ever smokedSelect [facility], [facility] Work Phone: Start: 28-47-1519Rll Assigned At [facility] Hospitaltart: 95-70-9872Qsoiaij smoking status NHISNever smoked tobaccoNOMS HealthcareStart: 16-30-7003Tbhjpzd use and exposureSmokeless tobacco non-userNOMS HealthcareStart: 02-02-2024 End: 79-74-0915Euxonhzgo beverage intakeCurrent drinker of alcohol (finding)N[facility]S HealthcareStart: 05-17-2024 End: 94-41-1254Vvvycbx of Social functionNOMS HealthcareStart: 05-17-2024 End: 40-79-9281Ueqilmu use panelNOMS HealthcareStart: 11-09-0847Ptnvhpx Comment OCCASSIONALNOMS HealthcareStart: 75-28-2317Rec assigned at birthNot on fileNOMS HealthcareHow often do you need to have someone help you when you read instructions, pamphlets, or other written material from your doctor or pharmacy [SILS]NeverNOMS HealthcareWithin the last year, have you been afraid of your partner or ex-partner?NoNOMS HealthcareDo you belong to any clubs or organizations such as yazidism groups, unions, fraBrown and [employer] or athletic groups, or school groups?YesNOMS HealthcareAre you now , , , , never or living with a partner?MarriedNOMS HealthcareHow often to you have a drink containing alcohol?Monthly or lessNOMS HealthcareHow many standard drinks containing alcohol do you have on a typical day?3 or 4NOMS HealthcareHow often do you have 6 or more drinks on 1 occasion?Less than monthly NOMS HealthcareStart: 34-59-1910Nrr hard is it for you to pay for the very basics like food, housing, medical care, and heatingNot hard at allNONM Healthcare(I/We) worried whether (my/our) food would run out before (I/we) got money to buy more.Never trueNONM HealthcareTobacco smoking status NHISUnknown if ever smokedSelect Medical Specialty [facility], [facility] Work Phone: SexFemale (finding)[facility] Start: 05-31-2025 End: 95-10-3480Zpbpbql smoking status NHISEx-smoker (finding)[facility] HospitalNEGATED: Highlighted rowStart: NINFHistory of tobacco usePassive smokerNONM Healthcare Functional Status BhfvCsyemqnpaxQgqluwXtzljtbj17-12-2067Kzjkt score [AUDIT-C]3 02/21/2025 9:33 AM EDT Myccharlat, GenericResearch Belton HospitalApupmynqjh00-38-4177Qwj often do you have a drink containing alcohol?Monthly or less 02/21/2025 9:33 AM EDT Mychart, Generic Monthly or lessNOSSM Health CareFqvhtwfrvc99-54-6368Nan many standard drinks containing alcohol do you have on a typical day?3 or 4 02/21/2025 9:33 AM EDT Mychart, Generic 3 or 4NOSSM Health CareTrerfdcelo72-83-8883Hrq often do you have 6 or more drinks on 1 occasion?Less than monthly 02/21/2025 9:33 AM EDT Mychart, Generic Less than monthlyNOSSM Health CareFzsckvnaoz17-18-9369Emkruts Health Questionnaire 2 item (PHQ-2) [Reported][facility] Clinical Notes 06-13-2021 to 08-17-2025 Note Date & HgcfDwgmDkykgykn06-02-7218 Evaluation note* Diagnosis Onset Date Resolution Status Admit Date Ex-smoker acuteOctober 2024 10:49amFacet arthritis of lumbar regionacuteOctober 2024 10:49amGERD (gastroesophageal reflux disease)acuteOctober 2024 10:49amHypercholesteremiaacuteOctober 2024 10:49amHypothyroidismacute October 2024 10:49amOsteopeniaacuteOctober 2024 10:49amTingling of right upper extremityacuteOct2024 10:49am [facility] Work Phone: 1(759) 852-133208-20-2025 NoteIn person visit Chief complaint: lowre back pain [place]: She was here with her frind Lily [...] She used to work as an insurance customer service specialist ROS: As above Medical History[1] Surgical History[2] [...] noon, in the evening, and at bedtime. nxjfohap-ncn-nitfhug fumarate (Multi Vitamin) 9 mg iron/15 mL liquid Take by mouth. tw-ves-TB-vit M-jwzhkw-ghcwbtr 200 mcg-15 mcg- 5 mg-1 mg capsule [...] [4] Allergies Allergen Reactions Cephalexin Hives Clindamycin [facility]07-31-2025 Telephone encounter Note* Telephone Encounter - EWA MCKOY - 06/01/2025 9:24 AM EDT Patient is looking to change neuro. She would like to go to Dr Reich at [place] Emzdezooqn70-78-9568 Miscellaneous Notes* Telephone Encounter - EWA MCKOY - 06/01/2025 9:24 AM EDT Patient is looking to change neuro. She would like to go to Dr Reich at [place] [facility] documented in this encounterResearch Belton HospitalWiwwemjdoz03-37-7753 Evaluation note* Diagnosis Onset Date Resolution Status Admit Date Dyspepsia acuteJuly 2024 10:16amGERD (gastroesophageal reflux disease)acuteJuly 2024 10:16amGlobus sensationacuteJuly 2024 10:16am [facility] Work Phone: 1([phone]) 396-686407-09-2025 History of Present illness Narrative* Zachary Aldana [...] Ambulatory referral to Gastroenterology documented in this encounterResearch Belton HospitalAzzowfbrdv98-27-3714 Telephone encounter Note* Telephone Encounter - Zachary Aldana MD - 04/25/2025 4:41 PM EDT Would need visit and can order MRI. [facility] HospitalSftfdzffqr97-25-6582 Miscellaneous Notes* Telephone Encounter - Zachary Aldana [...] about what to do. documented in this encounterResearch Belton HospitalOsgcsgwcax79-95-4685 History of Present illness Narrative* Shaila Prabhakar [...] venous duplex left; Future documented in this encounterNOSSM Health CareHfmqpeutwt09-33-5306 Telephone encounter Note* Telephone Encounter - Ita Clemons - 04/25/2025 1:15 PM EDT Patient called and stated she finished her physical therapy about 3 weeks ago and wondered what sheshould do next. an [facility] HospitalRkqhlpslas90-01-1600 Telephone encounter Note* Telephone Encounter - Zachary Aldana MD - 04/25/2025 12:59 PM EDT Unclear etiology of pain and patient needs seen to be appropriately assessed and treated. Try to schedule in office or go to urgent care. [facility] HospitalUecwzxwsgt68-96-6001 Telephone encounter Note* Telephone Encounter - Karma Marshall - 04/24/2025 10:45 AM EDT Left leg is swelling and tingling just above the ankle. She is seeking direction about what to do. [facility] HospitalYhxnpzjsed59-66-5025 History of Present illness Narrative* Zachary Aldana [...] 2 or 3 views documented in this encounterResearch Belton HospitalEpgebpabyn13-09-7144 History of Present illness Narrative* Ben Turpin [...] Orders Bilateral screening mammogram documented in this encounterResearch Belton HospitalTimllcjtki25-62-3923 Instructions* Patient Instructions* Ben Turpin NP - [...] THE [facility] EMERGENCY DEPARTMENT.\ documented in this encounterResearch Belton HospitalYocnppjhjc44-89-2306 NotePROCEDURE: XR HIP LT 2 3V W [...] Electronically authenticated by: MAKENZIE GOLDMAN Date: 2022-04-08 17:50[facility]12-08-2021 NoteChief Complaint consultation for abdominal [...] Hyperlipidemia: Sister and Brother. Hypertension: Sister. Hypothyroidism: Sister.[facility] HospitalComment on above:Result Comment: Electronically Signed By: KINZA ARMAS, Raymond Zaidi\Date and Time Signed: 10/09/21 21:37 [id number] NotePatient: JUNI HODGES Age: 60 years Sex: Female : 1960 Associated Diagnoses: None Author: Esteban Rose Results Review Original Procedure Date 06/12/2021 Revised repeat colonoscopy interval 5 years Adenomatous polyp(s) present 1 or 2 tubular adenomas less than 10mm Adenocarcinoma present No Serrated lesion(s) present No Hyperplastic polyp(s) present [facility]08-12-2021 Note [id number]#[id number]:127[facility] Evaluation noteNo assessment information availableSelect Medical Specialty Hospital [facility], Inc Work Phone: Evaluation note* Diagnosis Other specified [...] specified hypothyroidism (CMS/HCC) documented in this encounter [facility] HealthcareEvaluation note* Diagnosis Other specified hypothyroidism [...] hyperlipidemia type (CMS/HCC) documented in this encounter [facility] HealthcareEvaluation note* Diagnosis Other specified hypothyroidism (CMS/HCC)- Primary Other hyperlipidemia (CMS/HCC) Multiple lung nodules on CT Cellulitis of face Cellulitis and abscess of face Other specified hypothyroidism (CMS/HCC)- Primary Age-related osteoporosis without current pathological fracture (CMS/HCC) Other hyperlipidemia (CMS/HCC) Gastroesophageal reflux disease without esophagitis- Primary Esophageal reflux Other specified hypothyroidism (CMS/HCC) Hyperlipidemia, unspecified hyperlipidemia type ([facility]/HCC) Well adult exam Routine general medical examination at a health care [facility] Age-related osteoporosis without current pathological fracture ([facility]) Multiple lung nodules on CT Osteopenia after menopause Other hyperlipidemia (CMS/HCC)- Primary Viral upper respiratory tract infection Acute upper respiratory infections of unspecified site Encounter for screening mammogram for malignant neoplasm of breast Gastroesophageal reflux disease without esophagitis Esophageal reflux documented in this encounter [facility] HealthcareEvaluation note* Diagnosis Other specified hypothyroidism- Primary Other hyperlipidemia Multiple lung nodules on CT Cellulitis of face Cellulitis and abscess of face Other specified hypothyroidism- Primary Age-related osteoporosis without current pathological fracture (CMS/HCC) Other hyperlipidemia Gastroesophageal reflux disease without esophagitis- Primary Esophageal reflux Other specified hypothyroidism Hyperlipidemia, unspecified hyperlipidemia type ([facility]) Well adult exam Routine general medical examination at a health care [facility] Age-related osteoporosis without current pathological fracture ([facility]) Multiple lung nodules on CT Osteopenia after [...] index (BMI) of36.0 to 36.9 in adult ([facility]) Dyslipidemia ([facility]) Other and unspecified hyperlipidemia documented in this encounter [facility] HealthcareEvaluation note* Diagnosis Other specified hypothyroidism- [...] index (BMI) of36.0 to 36.9 in adult ([facility]) Dyslipidemia Other and unspecified hyperlipidemia Strain of left calf muscle- Primary Left knee pain, unspecified chronicity Left knee pain, unspecified chronicity documented in this encounter [facility] HealthcareEvaluation note* Diagnosis Other specified hypothyroidism- [...] index (BMI) of36.0 to 36.9 in adult ([facility]) Dyslipidemia Other and unspecified hyperlipidemia Degeneration of intervertebral disc of lumbar region with discogenic back pain- Primary Gastroesophageal reflux disease without esophagitis Esophageal reflux Globus sensation Gastrointestinal malfunction arising from mental factors documented in this encounter [facility] HealthcareEvaluation note* Author Fortino Walter [facility] HospitalAuthoredJuly 2024 11:18am- Dyspepsia - Globus sensation - GERD [facility] Work Phone: Evaluation note* Diagnosis Other specified [...] index (BMI) of36.0 to 36.9 in adult ([facility]) Dyslipidemia Other and unspecified hyperlipidemia Degeneration of [...] 2025 10:49amGERD (gastroesophageal reflux disease)inactiveOctober 2024 10:49am [facility] Work Phone: Hospital Discharge instructions Additional Instructions [...] problems. -Follow up with PCP. -Office number [phone]. [facility] Work Phone: Reason for referral (narrative)No reason for referral information availableSelect Medical Specialty [facility], Inc Work Phone: Summary Purpose Family History Relationship [...] and content) DATE CREATED AUTHOR 05/24/2022 [facility] DATE CREATED AUTHOR AUTHOR'S ORGANIZ ATION 12/20/[address] [facility] DATE CREATED AUTHOR AUTHOR'S ORGANIZ ATION 05/14/2025 [facility] DATE CREATED AUTHOR AUTHOR'S ORGANIZ ATION 07/03/2025 [facility] DATE CREATED AUTHOR AUTHOR'S ORGANIZ ATION 07/05/2025 [facility] Care Teams (unrecognized sec tion [...] Date Zachary Aldana MD [address] [place] [address] PCP - GeneralFamily Medicine07/27/24 Ben Turpin NP [address] [place] [address] Nurse Practitionermily Medicine07/27/24Team MemberRelationshipSpecialtyStart DateEnd Date Zachary Aldana MD [address] [place] [address] PCP - GeneralFamily Medicine07/27/24 Ben Turpin NP [address] [place] [address] Nurse Practitionermily Medicine07/27/24Team MemberRelationshipSpecialtyStart DateEnd Date Zachary Aldana MD [address] [place] [address] PCP - GeneralFamily Medicine07/27/24 Ben Turpin NP [address] [place] [address] Nurse Pract[facility]erEm[facility]07/27/24Team MemberRelationshipSpecialtyStart DateEnd Date Zachary Aldana MD [address] [place] [address] PCP - Generalmily Medicine07/27/24 Ben Turpin NP [address] [place] [address] [facility] Pract[facility]erS[facility] Medicine07/27/24Team MemberRelationshipSpecialtyStart DateEnd Date Zachary Aldana MD [address] [place] [address] PCP - GeneralFamily Medicine07/27/24 Ben Turpin NP [address] [place] [address] Nurse PractitionerUnitypoint Health-[facility] Hospitally Medicine07/27/24Team MemberRelationshipSpecialtyStart DateEnd Date Zachary Aldana MD [address] [place] [address] PCP - GeneralFamily Medicine07/27/24 Ben Turpin NP [address] [place] [address] Nurse Practitionermily Medicine07/27/24Team MemberRelationshipSpecialtyStart DateEnd Date Zachary Aldana MD [address] [place] [address] PCP - Generalmily Medicine07/27/24 Ben Turpin NP [address] [place] [address] Nurse PractitionerSomerville Hospital Medicine07/27/24Team MemberRelationshipSpecialtyStart DateEnd Date Zachary Aldana MD [address] [place] [address] PCP - Generalmily Medicine07/27/24 Ben Turpin NP [address] [place] [address] Nurse PractitionerUnitypoint Health-[facility] Hospitally Medicine07/27/24Team MemberRelationshipSpecialtyStart DateEnd Date Zachary Aldana MD [address] [place] [address] PCP - GeneralFamily Medicine07/27/24 Ben Turpin NP [address] [place] [address] Nurse Practitionermily Medicine07/27/24Team MemberRelationshipSpecialtyStart DateEnd Date Zachary Aldana MD [address] [place] [address] PCP - Generalmily Medicine07/27/24 Ben Turpin NP [address] [place] [address] Nurse PractitionerUnitypoint Health-[facility] Hospitally Medicine07/27/24Team MemberRelationshipSpecialtyStart DateEnd Date Zachary Aldana MD [address] [place] [address] PCP - GeneralSomerville Hospital Medicine07/27/24 Ben Turpin NP [address] [place] [address] Nurse PractitionerSomerville Hospital Medicine07/27/24Team MemberRelationshipSpecialtyStart DateEnd Date Zachary Aldana MD [address] [place] [address] PCP - Generalmily Medicine07/27/24 Ben Turpin, YENIFER [address] [place] [address] Nurse PractitionerSomerville Hospital Medicine07/27/24Team MemberRelationshipSpecialtyStart DateEnd Date Shaikh Chapin MD PCP - GeneralSierra Tucsonnal Medicine Zachary Aldana MD PCP - Generalmily Medicine07/27/24 Ben Turpin NP Nurse PractitionerEm[facility]07/27/24Team MemberRelationshipSpecialtyStart DateEnd Date Shaikh Chapin MD PCP - GeneralInternal Medicine01/03/ Zachary Aldana MD PCP - [facility]07/27/24 Ben Turpin NP Nurse PractitionerEmory [facility]07/27/24 Team Status: Active Member Role/Relationship Status Dates [...] (unrecogniz ed section and content) ReasonOnset DateCommentsMed Yrujcb9011/28/2024ReasonCommentsFollow-upReason CommentsBack PainPossible sciatic pain. Starts in lower [...] BE BASED ON THE PRIMARY CLINICAL RECORDS. [facility], [facility]. provides no warranty or guarantee of the accuracy or completeness of information in this document.
== END 2025-09-07 08:51 | disposition home or self-care (01) ==
LOC: CARD 08:50
PROVIDERS: PCP Family Medicine; Visit Provider Family Medicine
DX: R07.89 Other chest pain (principal); Z12.2 Encounter for screening for malignant neoplasm of respiratory organs; Z87.891 Personal history of nicotine dependence; E78.00 Pure hypercholesterolemia, unspecified
CPT/HCPCS: 71271; 93306; 93356

== ENCOUNTER 2025-10-12 16:14 | Outpatient (OUT) | payer MEDICARE, OTHER, SELFPAY ==
--- OUTSIDE RECORDS SUMMARY | 2025-10-12 16:23 | XMS_ITS | CCD ---
Author Organization [facility] Care Team Providers Care Centrifugal Machine Tender Name Role Phone FAWWAD, VAIL H Attending [...] Unavailable Zachary Aldana MD Primary Care Provider Dyana RADIOLOGIC THERAPIST, Ben Unavailable Dyana RADIOLOGIC THERAPIST, Ben Unavailable BEN TURPIN Attending UnavailZACHARY Whitlock Attending Unavailable FABjWAD, VAIL Attending Unavailable LEROY ZACARIAS Attending Unavailable LEROY ZACARIAS Referring Unavailable ZACHARY ALDANA Attending Unavailable Charo Baker MD Primary Care Provider Fortino Walter APRN Attending Provider Ly DOMarlen Attending Provider Ly DOMarlen Other Provider [phone] Zachary Aldana MD Primary Care Provider [phone] JOSH REICH Attending Unavailable JOSH REICH Referring Unavailable JOSH REICH Referring Unavailable Marlen Allan Attending Unavailable Marlen Allan Admitting Unavailable Zachary Aldana Primary Care Unavailable Mojgan DO, Maddison Primary Care Provider Mojgan DO, Maddison Attending Provider Tavares ARMAS [place] Primary Care Provider Zachary Aldana MD Primary Care Provider Dyana RADIOLOGIC THERAPIST, Ben Unavailable Charo Baker MD Primary Care Provider Fortino Walter APRN Attending Provider Allergies Allergy ClassificationReported Allergen(s)Allergy TypeDate of OnsetReaction(s) Facility (20 sources)Cephalexin; Translations: [CEPHALEXIN]Drug Vuvjkbn98-70-7942Nxabw [facility] (20 sources)Clindamycin; Translations: [CLINDAMYCIN]Drug Jilxlqx96-54-3081Fdmgi [facility] Medications Current Medications MedicationDrug Class(es)DatesSig (Normalized)Sig (Original)alendronic acid 70 mg oral tablet (20 sources)BisphosphonateStart: 65-62-7336Eiccjqdtguv Active MG PO December 27, 2023 12:00amStart: 11-18-2023 End: 42-17-3438ayuj 1 tablet by mouth every weekAlendronate 70 mg tablet Active 70 MG PO Once a week December 27, 2023 1:00am Complies with drug therapyStart: 11-18-2023 End: 68-01-1694qhqu 1 tablet by mouth in the morningalendronate [...] extended release oral tablet (3 sources)Vitamin CStart: 33-62-4932awsk 1 tablet by mouth once dailyAscorbic Acid (Vitamin C) (C Complex) 1,000 mg tablet extended release Active 1000 MG PO Daily 2024 12:00am Complies with drug therapyaspirin 81 mg oral tablet (3 sources)Platelet Aggregation Inhibitor, Nonsteroidal Anti-inflammatory Drug Start: 21-57-8281uvsq 1 tablet by mouth once dailyAspirin 81 mg tablet Active 81 MG PO Daily May 18, 2025 12:00am Complies with drug therapyatorvastatin 10 mg oral tablet (20 sources)HMG-CoA Reductase InhibitorStart: 12-07-2023 End: 74-22-2928tvzv 1 tablet by mouth once dailyAtorvastatin 10 mg tablet Active 10 MG PO Daily December 27, 2023 1:00am Complies with drug therapycalcium carbonate 1500 mg oral tablet (3 sources)Start: 04-24-8401toup 1 tablet by mouth once dailyCalcium Carbonate (Calcium 600) 600 mg calcium (1,500 mg) tablet Active 600 MG PO Daily May 18, 2025 12:00am Complies with drug therapycetirizine hydrochloride 10 mg oral tablet (9 sources)Histamine-1 Receptor AntagonistStart: 05-22-2025 End: 15-12-4158obeg 1 tablet by mouth once daily as neededCetirizine (Zyrtec) 10 mg tablet Active 10 MG PO Daily as needed August 15, 2025 12:00am Complies with drug therapyStart: 11-30-2024 End: 88-62-7664vedb 1 tablet by mouth once dailycetirizine (ZyrTEC) 10 MG tablet Indications: Viral upper respiratory tract infection Take 1 tablet(10 mg) by mouth Daily 30 tablet 2 11/30/2024 02/23/2025 Discontinuedfluticasone propionate 0.05 mg/actuat metered dose nasal spray (7 sources)CorticosteroidStart: 11-30-2024 End: 08-49-3752wphc 1-2 spray(s) nasal route once dailyfluticasone (Flonase) 50 MCG/ACT nasal spray Indications: Viral upper respiratory tract infection Ad driver material handler 1-2 sprays into each nostril Daily Shake gently. Before first use, prime pump. After use, clean tip and replace cap. 16 g 2 05/22/2025 05/22/2026 Activelevothyroxine sodium 0.112 mg oral capsule (20 sources)l-ThyroxineStart: 39-98-4675ipcl 1 capsule by mouth once daily Levothyroxine 112 mcg capsule Active 112 MCG PO Daily 90 0 August 21, 2025 12:00am Complies withdrug therapyStart: 12-09-2023 End: 74-21-7263mefg 1 tablet by mouth once dailyLevothyroxine 100 mcg tablet Discontinued 100 MCG PO Daily December 27, 2023 1:00am August 8:50ammethocarbamol 750 mg oral tablet (14 sources)Muscle RelaxantStart: 03-24-6898Kwxavuuogngbg 750 mg tablet Active 750 MG PO As Directed May 18, 2025 12:00am Complies with drugtherapy nabumetone 500 mg oral tablet (14 sources)Nonsteroidal Anti-inflammatory DrugStart: 02-23-2025 End: 79-45-9074Sbttpibrce 500 mg tablet Active 500 MG PO As Directed May 18, 2025 12:00am Complies with drug therapyOmega 5-Kni-Tvn-Fish Oil (Fish Oil) 1,000 (120-180) mg capsule (3 sources)Start: 22-53-2998qtcm 1 capsule by mouth once dailyOmega 7-Ept-Xfl-Fish Oil (Fish Oil) 1,000 (120-180) mg capsule Active 1 CAP PO Daily May 18, 2025 12:00am Complies with drug therapyomeprazole 40 mg delayed release oral capsule (20 sources)Proton Pump InhibitorStart: 66-05-0498gcyq 1 capsule by mouth once dailyOmeprazole 40 mg capsule,delayed release(DR/EC) Active 40 MG PO Daily 30 30 3 August 30, 2025 12:00am Complies with drug therapyStart: 02-23-2025 End: 41-75-1850umyn 1 capsule by mouth twice dailyOmeprazole 40 mg capsule,delayed release(DR/EC) Discontinued 40 MG PO Twice daily May 15, 2025 12:00am August 30, 2025 10:22amStart: 05-17-2024 End: 22-98-4613umsh 1 capsule by mouth in the morningomeprazole (PriLOSEC) [address] capsule Indications: Gastroesophageal reflux disease without esophagitis Take 1 capsule (40 mg) by mouth in the morning and 1 capsule (40 mg) in the evening. Take before meals. 180 capsule 3 02/23/2025 ActiveVit C,H-Gs-Konve-Lutein-Zeaxan ([facility] Health Areds-2) 250-90-40-1 mg capsule (3 sources)Start: 77-63-5076Syg C,S-Je-Kvxpn-Lutein-Zeaxan (Eye Health Areds-2) 250-90-40-1 mg capsule Active 1 TAB PO Twice daily May 18, 2025 12:00am Complies with drug therapyVitamin K2 45 mcg capsule (3 sources)Start: 41-34-4482yqvr 1 capsule by mouth once dailyVitamin K2 45 mcg capsule Active 45 MCG PO Daily May 31, 2025 12:00am Complies with drug therapy Completed/Discontinued Medications MedicationDrug Class(es)DatesSig (Normalized)Sig (Original)[id number] 200 actuat albuterol 0.09 mg/actuat metered dose inhaler (1 source)beta2-Adrenergic AgonistStart: 02-02-2024 End: 97-61-0985ndzu 2 puff(s) by inhalation every four hours [...] oral tablet (1 source)Penicillin-class AntibacterialStart: 02-02-2024 End: 30-75-9400rrik 1 tablet by mouth in the morningamoxicillin-clavulanate [...] oral capsule (1 source)Non-narcotic AntitussiveStart: 02-02-2024 End: 86-35-0468gqvp 1 capsule by mouth three times daily [...] oral tablet (5 sources)Vitamin DStart: 12-27-2023 End: 35-28-2787oqxk 1 tablet by mouth once dailyCalcium Carbonate-Vitamin D3 (Oyster Shell Calcium-Vit D3) 500 mg-10 mcg (400 unit) tablet Discontinued 1 TAB PO Daily December 27, 2023 1:00am May 18, 2025 9:31amclindamycin 300 mg oral capsule (5 sources)Lincosamide AntibacterialStart: 12-27-2023 End: 28-84-1570vagb 1 capsule by mouth every eight hoursClindamycin Hcl 300 mg capsule Discontinued 300 MG PO Q8H 21 7 0 December 27, 2023 1:00am May 15, 2025 10:23amdesonide 0.5 mg/ml topical cream (6 sources)CorticosteroidStart: 12-27-2023 End: 05-61-0427idakaqtl (DesOwen) 0.05 % cream Apply topically 2 (two) times a day to affected area 12/27/2023 11/30/2024 Discontinued (Med list cleanup) doxycycline hyclate 100 mg oral capsule (1 source)Tetracycline-class DrugStart: 01-26-2024 End: 14-87-6386mcxkcliqutf (Vibramycin) 100 MG capsule Indications: Pneumonia of [...] mg oral tablet (1 source)Start: 02-02-2024 End: 36-31-7717ekwa 2 tablets by mouth once dailypredniSONE (Deltasone) 20 MG tablet Indications: Non-recurrent acute suppurative otitis media of both ears without spontaneous rupture of tympanic membranes , Wheezing-associated respiratory infection , Respiratory illness with fever Take 2 tablets (40 mg) by mouth Daily for 5 days 10 tablet 02/02/2024 02/07/2024 Problems Active Problems Problem ClassificationProblemDateDocumented DateEpisodic/ChronicAbdominal pain (20 sources)Indigestion; Translations: [Epigastric pain]Onset: 01-04-2024 Resolved: 312820-66-2229IlfiebeeOplfwdyjk of lipid metabolism (20 sources)Hyperlipidemia, unspecified; Translations: [Hyperlipidemia]Onset: 03-05-5261AiyzwgbWzfsxrclni disorders (20 sources)Gastroesophageal reflux disease; Translations: [Gastro-esophageal reflux disease without esophagitis]Onset: 280887-50-1373XovyorkYqynnxfnmro chest pain (2 sources)Atypical chest pain; Translations: [Other chest pain]08-17-2025 EpisodicOsteoarthritis (4 sources)Unilateral primary osteoarthritis, left hip; Translations: [UNI PRIM OSTEOARTHRITIS LT HIP]Onset: 57-31-7937YdyzmmwYscgxaxzoaqo (7 sources)Osteoporosis; Translations: [Age-related osteoporosis without current pathological fracture]Onset: 405243-62-4649UcenvaaIwbog bone disease and musculoskeletal deformities (18 sources)Osteopenia; Translations: [Other specified disorders of bone density and structure, left thigh]Onset: 740350-39-7863XxzbscljBgvej circulatory disease (16 sources)Feeling of lump in throat; Translations: [Globus sensation]Onset: 476281-55-2179KtmzbbeuOqorf lower respiratory disease (1 source)Other nonspecific abnormal finding of lung field; Translations: [OTH NONSPECIFIC ABN FIND LNG FIELD]Onset: 81-88-9995AxggsfnqDzayl nervous system disorders (5 sources)Chronic low back pain; Translations: [Other chronic pain]Onset: 302010-15-1617WjyfkyrTooxq nervous system disorders (4 sources)Paresthesia of right upper limb; Translations: [Paresthesia of skin] 79-37-1769MhhfjyntVukcu non-traumatic joint disorders (2 sources)Pain in left knee; Translations: [Pain in joint, lower leg]04-25-2025 EpisodicOther nutritional; endocrine; and metabolic disorders (16 sources)Severe obesity; Translations: [Class 2 severe obesity due to excess calories with serious comorbidity and body mass index (BMI) of 36.0 to 36.9 in adult ([facility])]Onset: 025764-59-6043OqbktrrNipka screening for suspected conditions (not mental disorders or infectious disease) (9 sources)Encounter for screening mammogram for malignant neoplasm of breast; Translations: [Patient encounter status]Onset: 57-15-5395EuaejsiwKfcrgaze codes; unclassified (1 source)Family history of malignant neoplasm of breast; Translations: [FAMILY HX MALIG NEOPLASM OF BREAST]Onset: 79-29-7538BusirshfAxdestlrt and history of mental health and substance abuse codes (20 sources)Ex-smoker; Translations: [Personal history of nicotine dependence] Onset: 425232-84-9597FjipxomgHqouvzesthr; intervertebral disc disorders; other back problems (20 sources)Degeneration of lumbar intervertebral disc; Translations: [Degeneration of intervertebral disc of lumbar region with discogenic back pain] Onset: 451537-84-5737KkqwxkxXtivllc and strains (2 sources)Strain of calf muscle; Translations: [Strain of other muscle(s) and tendon(s) at lower leg level, left leg, initial encounter]35-96-6423Uevhbdpv Thyroid disorders (20 sources)Hypothyroidism, unspecified; Translations: [Hypothyroidism]Onset: 04-87-8832Argrgib Past or Other Problems Problem ClassificationProblemDateDocumented DateEpisodic/ChronicBiliary tract disease (20 sources)Cholelithiasis without obstruction; Translations: [Calculus of gallbladder without cholecystitis without obstruction]Onset: 01-04-2024 46-14-5608YpforghaUsjbp bone disease and musculoskeletal deformities (20 sources)Postmenopausal osteopenia; Translations: [Other specified disorders of bone density and structure, unspecified site]Onset: 11-18-2023 Resolved: 570601-70-0248AjpmqtybCjsic lower respiratory disease (20 sources)Multiple nodules of lung; Translations: [Other nonspecific abnormal finding of lung field]Onset: 689561-91-5757TtcxfuvdPnqsy lower respiratory disease (20 sources)Respiratory tract infection; Translations: [Other specified respiratory disorders]Onset: 02-03-2024 Resolved: 972121-44-4980WftjxnpcKeuyt lower respiratory disease (20 sources)Disorder of respiratory system; Translations: [Respiratory disorder, unspecified]Onset: 02-03-2024 Resolved: 215638-14-0578XockknbvGdsqn nervous system disorders (4 sources)Anesthesia of skin; Translations: [ANESTHESIA OF SKIN]Onset: 40-66-1015SfbrjksbNeuzo non-traumatic joint disorders (1 source)Pain in left hip; Translations: [PAIN IN LEFT HIP]Onset: 05-16-2022 EpisodicOther upper respiratory infections (20 sources)Viral upper respiratory tract infection; Translations: [Acute upper respiratory infection, unspecified]Onset: 11-30-2024 Resolved: 118826-05-9757VblzrohuTrozto media and related conditions (20 sources)Acute suppurative otitis media without spontaneous rupture of ear drum; Translations: [Acute suppurative otitis media without spontaneous rupture of ear drum, bilateral]Onset: 02-03-2024 Resolved: 621381-96-2708DusdtiboTrxd and subcutaneous tissue infections (20 sources)Cellulitis of face; Translations: [Cellulitis of face]Onset: 01-04-2024 Resolved: 133831-70-1194Iiohecaj Results Test NameValueInterpretationReference RangeFacilityBasophils Auto (Bld) [#/Vol] Ordered By: Maddison Ulrich on 79-31-4613Lsznnygav (Bld) [#/Vol]0.0 10 3/uL0.0-0.1 [facility] HospitalBasophils/100 WBC Auto (Bld)Ordered By: Maddison Ulrich on 31-12-8140Zwpicoxjn/100 WBC (Bld)0.5 %0.2-2.0[facility] HospitalCholesterol in LDL Calc [Mass/Vol]Ordered By: MADDISON ULRICH on 08-17-2025 Cholesterol in LDL [Mass/Vol]118.2 mg/dLThe Jewish HospitalComment on above:<100 mg/dl RRETHWA423-188 mg/dl NEAR OR ABOVE SMDBNNR250-678 mg/dl BORDERLINE XZVU295-134 mg/dl HIGH>190 mg/dl VERY HIGHCholesterol in VLDL Calc [Mass/Vol]Ordered By: MADDISON ULRICH on 76-10-5238Kzcxgmxmcfo in VLDL [Mass/Vol] 20.8 mg/dLThe Jewish HospitalEosinophils/100 WBC Auto (Bld)Ordered By: Maddison Ulrich on 64-96-6903Wlmkompzbar/100 WBC (Bld)2.7 %0.9-7.0[facility] HospitalErythrocyte distribution width Auto (RBC) [Ratio]Ordered By: Maddison Ulrich on 37-43-2228Qaaawynusup distribution width (RBC) [Ratio]14.6 % 11.0-15.0[facility] HospitalGlobulin Calc (S) [Mass/Vol]Ordered By: MADDISON ULRICH on 55-71-5305Obxqfihl (S) [Mass/Vol]4.2 g/dLThe Jewish HospitalGlomerular filtration rate (GFR) estimation in non- AmericanOrdered By: MADDISON ULRICH on 88-07-6802APH/1.73 sq M.predicted among non- blacks MDRD (S/P/Bld) [Vol rate/Area]mL/min/{1.73_m2}>=60 mL/min/1.73m 2 [facility] CenterHematocrit Auto (Bld) [Volume fraction]Ordered By: Maddison Mojgan on 58-80-7838Vhehivukxp (Bld) [Volume fraction]35.9 %Low 36.0-48.0[facility] HospitalHemoglobin [Mass/volume] in Blood Ordered By: Maddisondada Ulrich on 51-96-7375Udtnfakggl (Bld) [Mass/Vol]11.8 g/dLLow 12.0-16.0[facility] HospitalLaboratory - Chemistry and Chemistry - challengeOrdered By: MADDISONDADA ULRICH on 79-61-3643Qynyjgv [Mass/Vol]3.6 g/dL 3.4-5.0[facility] HospitalALP [Catalytic activity/Vol]52 U/L46-116 [facility] HospitalALT [Catalytic activity/Vol]17 U/L14-59 [facility] HospitalAST [Catalytic activity/Vol]20 U/L15-37 [facility] HospitalBilirubin [Mass/Vol]0.4 mg/dL0.2-1.0[facility] HospitalCalcium [Mass/Vol]8.9 mg/dL8.5-10.1FLima City HospitalChloride [Moles/Vol]104 mmol/K63-811MwnvbiwpbThe Jewish HospitalCholesterol [Mass/Vol]183 mg/dL<=200[facility] Cholesterol in HDL [Mass/Vol]44 mg/uZ00-66BkznckikcThe Jewish Hospital Comment on above:> or =60 mg/dl - LOW CARDIOVASCULAR RISK<40 mg/dl - HIGH CARDIOVASCULAR RISKCO2 [Moles/Vol]31.2 mmol/L21.0-32.0[facility] HospitalCreatinine [Mass/Vol]0.72 mg/dL0.55-1.02[facility] GFR/1.73 sq M.predicted MDRD (S/P/Bld) [Vol rate/Area]mL/min/{1.73_m2}>=60 mL/min/1.73m 2FLima City HospitalGlucose [Mass/Vol]85 mg/xZ75-207 [facility] HospitalPotassium [Moles/Vol]3.6 mmol/L3.5-5.1FLima City HospitalProtein [Mass/Vol]7.8 g/dL6.4-8.2FFisher-Titus Medical Centerodium [Moles/Vol]143 mmol/X600-409NdoxieacdThe Jewish HospitalTriglyceride [Mass/Vol]104 mg/dL<=150The [facility] HospitalUrea nitrogen [Mass/Vol]15.0 mg/dL7.0-18.0[facility] HospitalUrea nitrogen/Creatinine [Mass ratio]20.8 mg/mgThe [facility] Hospital Laboratory - Chemistry and Chemistry - challengeOrdered By: Maddison Ulrich on 03-64-6994Hnev T4 [Mass/Vol]1.05 ng/dL0.76-1.46[facility] TSH Qn4.025 m[IU]/LHigh0.358-3.740[facility] HospitalLaboratory - Hematology and Cell countsOrdered By: Maddison Ulrich on 90-44-4997Rvvddtoq granulocytes/100 WBC (Bld)0.2 %0.0-0.5FLima City Hospital Leukocytes [#/volume] corrected for nucleated erythrocytes in Blood by Automated counOrdered By: Maddison Ulirch on 89-68-0205TSY corrected for nucl RBC Auto (Bld) [#/Vol]6.4 10 3/uL4.0-11.0[facility] HospitalLymphocytes Auto (Bld) [#/Vol]Ordered By: Maddison Ulrich on 34-68-9240Ihxrhsyiemb (Bld) [#/Vol]1.5 10 3/uL1.2-3.8[facility] HospitalLymphocytes/100 WBC Auto (Bld) Ordered By: Maddison Ulrich on 30-63-0754Syxmhnjjlbp/100 WBC (Bld)22.7 %20.5-60.0 [facility] Auto (RBC) [Entitic mass]Ordered By: Maddison Ulrich on 53-50-8700FAN (RBC) [Entitic mass]28.6 pg26.7-34.0[facility] HospitalMC Auto (RBC) [Mass/Vol]Ordered By: Maddison Ulrich on 30-56-7817HUIQ (RBC) [Mass/Vol]32.9 g/dL29.9-35.2FLima City HospitalMCV Auto (RBC) [Entitic vol]Ordered By: Maddison Ulrich on 35-92-0201GYS (RBC) [Entitic vol]86.9 fL81.0-99.0[facility] HospitalMonocytes Auto (Bld) [#/Vol]Ordered By: Maddison Ulrich on 80-03-4945Cfeaugimz (Bld) [#/Vol] 0.3 10 3/uL0.3-0.8[facility] HospitalMonocytes/100 WBC Auto (Bld) Ordered By: Maddison Ulrich on 13-76-9115Vnnllwkox/100 WBC (Bld)4.9 %1.7-12.0 [facility] HospitalNeutrophils Auto (Bld) [#/Vol]Ordered By: Maddison Ulrich on 24-04-4107Jmsfkurlevz (Bld) [#/Vol]4.4 10 3/uL1.4-6.5FLima City HospitalNeutrophils/100 WBC Auto (Bld)Ordered By: Maddison Ulrich on 90-98-5030Kcpihmlltnn/100 WBC (Bld)69.0 %43.0-75.0[facility] HospitalNo Panel InformationOrdered By: Maddison Ulrich on 07-89-9724Uznqcbfgqgg # (Auto)0.2 10 3/uL0.0-0.7FLima City HospitalImmature Granulocyte # (Auto)0.01 10 3/uL0.00-0.03[facility] HospitalPlatelet mean volume Auto (Bld) [Entitic vol]Ordered By: Maddison Ulrich on 89-28-1594Ixqlejdo mean volume (Bld) [Entitic vol]9.4 fLLow9.5-13.5FLima City Hospital Platelets Auto (Bld) [#/Vol]Ordered By: Maddison Ulrich on 39-31-6016Jnfrrjfzg (Bld) [#/Vol]173 10 3/lO333-367PjphhkgxsThe Jewish HospitalRBC Auto (Bld) [#/Vol]Ordered By: Maddison Mojgan on 09-33-9041IDG (Bld) [#/Vol]4.13 10 6/uLLow 4.20-5.40[facility] Hospitalerum or plasma albumin/globulin mass ratioOrdered By: MADDISON MOJGAN on 29-40-4839Xsfposn/Globulin [Mass ratio]0.9 {ratio}[facility] Hospitalerum or plasma anion gap determination Ordered By: MADDISONDADA ULRICH on 37-91-3017Tkgzn gap [Moles/Vol]11.4 mmol/LFFisher-Titus Medical Centererum or plasma total cholesterol/high density lipoprotein (HDL) cholesterol mass ratOrdered By: MADDISON MOJGAN on 08-17-2025 Cholesterol.total/Cholesterol in HDL [Mass ratio]4.2 {ratio}[facility] HospitalComment on above:3.3 - 4.4 LOW RISK4.4 - 7.1 AVERAGE RISK7.1 - 11.0 MODERATE RISK>11.0 HIGH RISKOffice Visiton 82-82-8212Ujrsxh-up visit [id number] Juni Hodges 1960 F Date Provider Department Center 06/21/2025 JOSH IBARRA ONC DCC Family History Problem Relation Age of Onset Diabetes Mother Clotting disorder Father's Sister Family Status - Relation Status Age at Mother Alive Father's Sister Alive Level of Service:11295 ME OFFICE/OUTPATIENT NEW LOW MDM 30 MINUTESNormal [facility] HospitalPathology Request for Lab Corpon 05-31-2025 Pathology Request for Lab CorpBaptist Children's Hospital Physician GroupComment on above:Order Comment: GI SPECIMENResult Comment: See report. Scanned copy available in EMR. PERFORMED BY: [place] [address] PATHOLOGIST REFERENCE ASSISTANT FAUSTINO JEFFERS M.D.Performed By: #### PATH TO [facility] #### [address] [address] USAMR LUMBAR SPINE WO CONon 75-55-3524[place]uyLa [place] [address] Magnetic Resonance Report Signed Patient: JUNI HODGES MR#: [id number] : 1960 Acct:[id number] Age/Sex: 64 / F ADM Date: 05/18/25 Loc: MRI Attending Dr: Zachary Aldana M.D. Ordering Physician: Zachary Aldana M.D. Date of Service: 05/18/25 Procedure(s): MR lumbar spine wo con Accession Number(s): [id number] cc: Zachary Aldana M.D. [place] [address] Patient Name: JUNI HODGES MRN: [id number] date: 1960 Sex: F Assigned Patient Location: MRI Current Patient Location: Accession/Order Number: [id number] Exam Date: 05/19/2025 00:04 Report Date: 05/19/2025 [...] Tobin M.D. 05/19/2025 12:08 AM Dictation Location: [place] [address] Electronically authenticated by: [id number] Y Date: 05/19/2025 00:08 Dictated By: Caleb Tobin M.D. Signed By: 05/19/25 0011 DD/ 0008 TD/TT: Knitted Garment Finisher:TBHRadiology, Radiologist, - 05/19/2025 [place] [address] Magnetic Resonance Report Signed Patient: JUNI HODGES MR#: [id number] : 1960 Acct:[id number] Age/Sex: 64 / F ADM Date: 05/18/25 Loc: MRI Attending Dr: Zachary Aldana M.D. Ordering Physician: Zachary Aldana M.D. Date of Service: 05/18/25 Procedure(s): MR lumbar spine wo con Accession Number(s): [id number] cc: Zachary Aldana M.D. [place] [address] Patient Name: JUNI HODGES MRN: [id number] date: 1960 Sex: F Assigned Patient Location: MRI Current Patient Location: Accession/Order Number: [id number] Exam Date: 05/19/2025 00:04 Report Date: 05/19/2025 [...] Tobin M.D. 05/19/2025 12:08 AM Dictation Location: [place] [address] Electronically authenticated by: [id number] Y Date: 05/19/2025 00:08 Dictated By: Caleb Tobin M.D. Signed By: 05/19/25 0011 DD/ 0008 TD/TT: Knitted Garment Finisher: [facility]ITALSteven German HospitalRadiology Study observation (narrative)[facility] LUMBAR SPINE WO CONOrdered By: Radiologist Radiology on 76-20-7983GDBRSainte Genevieve [facility] Work Phone: US.doppler Lower extremity vein [...] II, MD, PHD at 26-Apr-2025 07:44:18 AM [facility] Hospitalradiology [facility] CampusTanner leija MD - 04/26/2025 EXAM: VAS US [...] II, MD, PHD at 26-Apr-2025 07:44:18 AM [facility] BabyGlowzradUniversity of [facility] Hospital [facility].doppler Lower extremity vein - leftOrdered By: Tanner Mejia on 56-92-8707FNDWSainte Genevieve County [facility] Hospital Work Phone: US.doppler Lower extremity vein - lefton 04-25-2025 Radiology Study observation (narrative)[facility] US LOWER EXTREMITY VENOUS DUPLEX LEFTon 96-24-3057XENM US LOWER EXTREMITY VENOUS DUPLEX LEFTEXAM: [facility] US LOWER EXTREMITY VENOUS DUPLEX LEFT [...] II, MD, PHD at 26-Apr-2025 07:44:18 AM [facility] TeleradiologyNormalNot AvailableXR LUMBAR SPINE 2 OR 3Von 49-61-6489[place]ck[place] [address] XRay Report Signed Patient: JUNI HODGES MR#: [id number] : 1960 Acct:[id number] Age/Sex: 64 / F ADM Date: 02/23/25 Loc: [facility] Attending Dr: Zachary Aldana M.D. Ordering Physician: Zachary Aldana M.D. Date of Service: 02/23/25 Procedure(s): XR lumbar spine 2-3V Accession Number(s): [id number] cc: Zachary Aldana M.D. [place] [address] Patient Name: JUNI HODGES MRN: [id number] date: 1960 Sex: F Assigned Patient Location: [facility] Current Patient Location: [facility] Accession/Order Number: [id number] Exam Date: 02/23/2025 13:52 Report Date: 02/23/2025 [...] Rose Jr., D.OAdi02/23/2025 1:52 PM Dictation Location: [place] [address] Electronically authenticated by: [id number] Y Date: 02/23/2025 13:52 Dictated By: Cesar Rose M.D. Signed By: 02/23/25 135 DD/ 135 TD/TT: Knitted Garment Finisher:NASEEMHRadiology, Radiologist, - 02/23/2025 [place] [address] XRay Report Signed Patient: JUNI HODGES MR#: [id number] : 1960 Acct:[id number] Age/Sex: 64 / F ADM Date: 02/23/25 Loc: [facility] Attending Dr: Zachary Aldana M.D. Ordering Physician: Zachary Aldana M.D. Date of Service: 02/23/25 Procedure(s): XR lumbar spine 2-3V Accession Number(s): [id number] cc: Zachary Aldana M.D. The [place] [address] Patient Name: JUNI HODGES MRN: [id number] date: 1960 Sex: F Assigned Patient Location: [facility] Current Patient Location: [facility] Accession/Order Number: [id number] Exam Date: 02/23/2025 13:52 Report Date: 02/23/2025 [...] Rose Jr., D.O.02/23/2025 1:52 PM Dictation Location: [place] [address] Electronically authenticated by: [id number] Y Date: 02/23/2025 13:52 Dictated By: Cesar Rose M.D. Signed By: 02/23/251354 DD/ 51 TD/TT: Knitted Garment Finisher: ROJAS HealthcareRadiology Study observation (narrative)[facility] HealthcareXR LUMBAR SPINE 2 OR 3VOrdered By: Radiologist Radiology on 50-44-5860JKTU iXpert Work Phone: MM TOMOSYNTHESIS SCREENING BIon 96-95-5078Ahd [address] [address] Mammography Report Signed Patient: JUNI HODGES MR#: [id number] : 1960 Acct:[id number] Age/Sex: 64 / F ADM Date: 12/15/24 Loc: MAMMO Attending Dr: BEN TURPIN Ordering Physician: BEN TURPIN Results: Date of Service: 12/15/24 Follow Up: Procedure(s): MM tomosynthesis screening BI Accession Number(s): [id number] cc: BEN TURPIN Patient Name: JUNI HODGES MR#: [id number] : 1960 Exam Date: 12/15/2024 Ordering Doctor: [...] breast cancer at age 69. LOCATION: [facility] BREAST COMPOSITION: There are scattered [...] Signed By: 12/16/24 1131 DD/ 1130 TD/TT: Knitted Garment Finisher:TBHRadiology, Radiologist, MD - 12/16/2024 [place] [address] Mammography Report Signed Patient: JUNI HODGES MR#: [id number] : 1960 Acct:[id number] Age/Sex: 64 / F ADM Date: 12/15/24 Loc: MAMMO Attending Dr: BEN TURPIN Ordering Physician: BEN TURPIN Results: Date of Service: 12/15/24 Follow Up: Procedure(s): MM tomosynthesis screening BI Accession Number(s): [id number] cc: BEN TURPIN Patient Name: JUNI HODGES MR#: [id number] : 1960 Exam Date: 12/15/2024 Ordering Doctor: [...] breast cancer at age 69. LOCATION: [facility] BREAST COMPOSITION: There are scattered [...] Signed By: 12/16/24 1131 DD/ 113 TD/TT: Knitted Garment Finisher: ROJAS [facility] HospitalRadiology Study observation (narrative)[facility] TOMOSYNTHESIS SCREENING BIOrdered By: Radiologist Radiology on 14-25-9859MPZX iXpert Work Phone: ct CHEST WO CONon [phone] [place], [place] [address] CT Scan Report Signed Patient: JUNI HODGES MR#: [id number] : 1960 Acct:[id number] Age/Sex: 63 / F ADM Date: 05/24/24 Loc: CT Attending Dr: Shaikh Tavares Oliver Ordering Physician: Shaikh Benito Chapin Date of Service: 05/24/24 Procedure(s): CT chest wo con Accession Number(s): [id number] cc: Shaikh Benito Chapin [place] [id number] Patient Name: JUNI HODGES MRN: [id number] date: 1960 Sex: F Assigned Patient Location: CT Current Patient Location: Accession/Order Number: [id number] Exam Date: 05/24/2024 09:00 Report Date: 05/25/2024 [...] Saxena M.D. Signed By: 05/25/2447 DD/ TD/TT: Knitted Garment Finisher:TBHRadiology, Radiologist, MD - 05/25/2024 [place] [address] CT Scan Report Signed Patient: JUNI HODGES MR#: [id number] : 1960 Acct:[id number] Age/Sex: 63 / F ADM Date: 05/24/24 Loc: CT Attending Dr: Shaikh Tavares Oliver Ordering Physician: Shaikh Benito Chapin Date of Service: 05/24/24 Procedure(s): CT chest wo con Accession Number(s): [id number] cc: Shaikh Benito Chapin The [address] [address] Patient Name: JUNI HODGES MRN: [id number] date: 1960 Sex: F Assigned Patient Location: CT Current Patient Location: Accession/Order Number: [id number] Exam Date: 05/24/2024 09:00 Report Date: 05/25/2024 [...] Signed By: 05/25/24 0547 DD/ 0543 TD/TT: Knitted Garment Finisher: [facility] HealthcareRadiology Study observation (narrative)[facility] HealthcareCT CHEST WO CONOrdered By: Radiologist Radiology on 65-16-4252ZLYP iXpert Work Phone: xr DEXA AXIAL SKELETONon 55-21-5492AooLa [place], [place] [address] XRay Report Signed Patient: JUNI HODGES MR#: [id number] : 1960 Acct:[id number] Age/Sex: 63 / F ADM Date: 05/24/24 Loc: CT Attending Dr: Shaikh Tavares Oliver Ordering Physician: Shaikh Benito Chapin Date of Service: 05/24/24 Procedure(s): XR DEXA axial skeleton Accession Number(s): [id number] cc: Shaikh Benito Chapin [place] [id number] Patient Name: JUNI HODGES MRN: [id number] date: 1960 Sex: F Assigned Patient Location: CT Current Patient Location: CT Accession/Order Number: [id number] Exam Date: 05/24/2024 09:10 Report Date: 05/24/2024 [...] prevention and treatment of osteoporosis. Osteoporos Int. 2021;3310):9759-3338. doi: 10.1007/g60760-514-75234-k. Epub 2021Feb 27. Erratum in: Osteoporos Int. 2021May 29;: PMID: 11755381; PMCID: PDL7819691. Electronically authenticated by: CELINE SAXENA Date: 05/24/2024 10:18 Dictated By: Celine Saxena M.D. Signed By: 05/24/24 1020 DD/ 1018 TD/TT: Knitted Garment Finisher:TBHRadiology, Radiologist, - 05/24/2024 [place] [address] XRay Report Signed Patient: JUNI HODGES MR#: [id number] : 1960 Acct:[id number] Age/Sex: 63 / F ADM Date: 05/24/24 Loc: CT Attending Dr: Shaikh Tavares Oliver Ordering Physician: Shaikh Benito Chapin Date of Service: 05/24/24 Procedure(s): XR DEXA axial skeleton Accession Number(s): [id number] cc: Shaikh Benito Chapin The [place] [id number] Patient Name: JUNI HODGES MRN: [id number] date: 1960 Sex: F Assigned Patient Location: CT Current Patient Location: CT Accession/Order Number: [id number] Exam Date: 05/24/2024 09:10 Report Date: 05/24/2024 [...] prevention and treatment of osteoporosis. Osteoporos Int. 2021;33(10):2662-9147. doi: 10.1007/o64961-520-85042-w. Epub 2021Feb 27. Erratum in: Osteoporos Int. 2021May 29;: PMID: 74168713; PMCID: OBC9502876. Electronically authenticated by: CELINE SAXENA Date: 05/24/2024 10:18 Dictated By: Celine Saxena M.D. Signed By: 05/24/24 1020 DD/ 1018 TD/TT: Knitted Garment Finisher: ROJAS HealthcareRadiology Study observation (narrative)[facility] HealthcareXR DEXA AXIAL SKELETONOrdered By: Radiologist Radiology on 84-56-1430NHFS Healthcare Work Phone: XR CHEST 2Von [phone] [place] [address] XRay Report Signed Patient: JUNI HODGES MR#: [id number] : 1960 Acct:[id number] Age/Sex: 63 / F ADM Date: 02/02/24 Loc: TRAVIS Attending Dr: Shaikh Tavares Oliver Ordering Physician: Shaikh Benito Chapin Date of Service: 02/02/24 Procedure(s): XR chest 2V Accession Number(s): [id number] cc: Shaikh Benito Chapin [place] [address] Patient Name: JUNI HODGES MRN: [id number] date: 1960 Sex: F Assigned Patient Location: RAD Current Patient Location: RAD Accession/Order Number: [id number] Exam Date: 02/02/2024 12:22 Report Date: 02/02/2024 [...] Signed By: 02/02/24 1310 DD/ 1308 TD/TT: Knitted Garment Finisher:TBHRadiology, Radiologist, - 02/02/2024 [place] [address] XRay Report Signed Patient: JUNI HODGES MR#: [id number] : 1960 Acct:[id number] Age/Sex: 63 / F ADM Date: 02/02/24 Loc: TRAVIS Attending Dr: Shaikh Tavares Oliver Ordering Physician: Shaikh Benito Chapin Date of Service: 02/02/24 Procedure(s): XR chest 2V Accession Number(s): [id number] cc: Shaikh Benito Chapin [place] [address] Patient Name: JUNI HODGES MRN: [id number] date: 1960 Sex: F Assigned Patient Location: [facility] Current Patient Location: RAD Accession/Order Number: [id number] Exam Date: 02/02/2024 12:22 Report Date: 02/02/2024 [...] Signed By: 02/02/24 1310 DD/ 1308 TD/TT: Knitted Garment Finisher: [facility] HospitalRadiology Study observation (narrative)[facility] HospitalXR CHEST 2V Ordered By: Radiologist Radiology on 00-83-8610DIUH iXpert Work Phone: cT CHEST WO CONon [phone] CHEST WO CON EXAMINATION: CT CHEST WO [...] Electronically authenticated by: CELINE SAXENA Date: 2022-12-16 14:13[facility] [place] [facility] CenterDAT - VITAMIN Don 39-31-5212GGQ D 25-OH28.8 ng/mLNormalAultman Alliance Community HospitalComment on above:Performed By: #### DATVITD #### [facility] [address] [place] [address] Dr. Emmanuel Vazquez RANGESSEE BELOWSouthern [place] Medical CenterComment on above: Result Comment: <20 ng/mL Vit D deficient 20 - <30 ng/mL Vit D insufficient 30 - 100 ng/mL Vit D sufficient >100 ng/mL Potential ToxicityPerformed By: #### DATVITD #### [facility] [address] [place] [address] Dr. Emmanuel HillmanGLYCOHEMOGLOBIN A1Con 77-05-8947LWX RECOMMENDATIONSEE [facility] on above:Result Comment: ADA RECOMMENDED LIMIT 4.0 - 6.0 ADA THERAPEUTIC TARGET < 7.0 ACTION SUGGESTED > 7.0Performed By: #### DATA1C #### [facility] [address] [place] [address] Dr. Emmanuel HillmanGlucose [Mass/Vol]108 mg/dLSouthern [place] Medical CenterCombeaumont hospital on above:Performed By: #### DATA1C #### [facility] [address] [place] [address] Dr. Emmanuel HillmanHbA1c (Bld) [Mass fraction]5.4 %Normal4.5-6.2Ault[facility] Alliance Community HospitalComment on above:Performed By: #### DATA1C #### [facility] [address] [place] [address] Dr. Emmanuel HillmanLIPID PROFILEon 16-91-5205KNAZ-HDL RATIO NORMSEE [facility] CenterCombeaumont hospital on above:Result Comment: 3.3 - 4.4 LOW RISK 4.4 - 7.1 AVERAGE RISK 7.1 - 11.0 MODERATE RISK >11.0 HIGH RISKPerformed By: #### LIPID, TSH, LIVER #### [facility] [address] [place] [address] [address] Emmanuel HillmanCholesterol [Mass/Vol]148 mg/dLNormal<=200[facility] Comment on above:Performed By: #### LIPID, TSH, LIVER #### [facility] [address] [place] [address] [address] Emmanuel HillmanCholesterol in HDL [Mass/Vol]44 mg/xAHeuqkv61-69Lsi [facility] CenterComment on above:Performed By: #### LIPID, TSH, LIVER #### [facility] [address] [place] [address] [address] Emmanuel HillmanCholesterol in LDL [Mass/Vol]79.0 mg/dLNoMarymount HospitalComment on above:Performed By: #### LIPID, TSH, LIVER #### [facility] [address] [place] [address] [address] Emmanuel De La Cruzestersusie.total/Cholesterol in HDL [Mass ratio]3.4 {ratio} NormalThe [facility] Medical CenterComment on above:Performed By: #### LIPID, TSH, LIVER #### [facility] [address] [place] [address] [address] Emmanuel Aviles NORMAL> or = 60 mg/dl - LOW CARDIOVASCULAR RISK <40 mg/dl - HIGH CARDIOVASCULAR RISKSouthern [place] Medical CenterComment on above:Performed By: #### LIPID, TSH, LIVER #### [facility] [address] [place] [address] [address] Emmanuel HillmanLDL CALC NORMALSEE BELOWNoMarymount HospitalComment on above:Result Comment: <100 mg/dl OPTIMAL 100 - 129 mg/dl NEAR OR ABOVE OPTIMAL 130 - 159 mg/dl BORDERLINE HIGH 160 - 189 mg/dl HIGH >190 mg/dl VERY HIGH Performed By: #### LIPID, TSH, LIVER #### [facility] [address] [place] [address] [address] Emmanuel HillmanTriglyceride [Mass/Vol]125 mg/dLNormal<=150[facility] Comment on above:Performed By: #### LIPID, TSH, LIVER #### [facility] [address] [place] [address] [address] Emmanuel GarciaLDL CALC25.0 mg/dLNormalThe [facility] on above: Performed By: #### LIPID, TSH, LIVER #### [facility] [address] [place] [address] Dr. Emmanuel Murrell PROFILEon 76-88-9392Xobjtwh [Mass/Vol]3.7 g/dLNormal3.4-5.0 The [facility] CenterComment on above:Performed By: #### LIPID, TSH, LIVER #### [facility] [address] [place] [address] Dr. Emmanuel HillmanAlbumin/Globulin [Mass ratio]0.9 {ratio}NormalThe [place] [facility] on above:Performed By: #### LIPID, TSH, LIVER #### [facility] [address] [place] [address] Dr. Emmanuel Anderson [Catalytic activity/Vol]69 U/ABokwfr21-076Mgl [facility] CenterComment on above:Performed By: #### LIPID, TSH, LIVER #### [facility] [address] [place] [address] Dr. Emmanuel Beatty [Catalytic activity/Vol]34 U/LFxcfoa09-49Dgl [facility] on above:Performed By: #### LIPID, TSH, LIVER #### [facility] [address] [place] [address] Dr. Emmanuel Dawn [Catalytic activity/Vol]17 U/JQsbofd04-72Yco [facility] on above:Performed By: #### LIPID, TSH, LIVER #### [facility] [address] [place] [address] Dr. Emmanuel Bey, CONJUGATED0.1 mg/dLNormal0.0-0.2[facility] Comment on above:Performed By: #### LIPID, TSH, LIVER #### [facility] [address] [place] [address] Dr. Emmanuel Krishnanirubin [Mass/Vol]0.4 mg/dLNormal0.2-1.0[facility] Comment on above:Performed By: #### LIPID, TSH, LIVER #### [facility] [address] [place], [place] [address] Dr[address] Emmanuel HillmanGlobulin (S) [Mass/Vol]4.3 g/dLNormalThe [facility] CenterComment on above:Performed By: #### LIPID, TSH, LIVER #### [facility] [address] [place], [place] [address] Dr[address] Emmanuel HillmanProtein [Mass/Vol]8.0 g/dLNormal6.4-8.2[facility] Comment on above:Performed By: #### LIPID, TSH, LIVER #### [facility] [address] [place], [place] [address] Dr. Emmanuel Gunn 83-90-3686YMF7.447 uIU/mLCritically high0.358-3.740A[facility] Alliance Community HospitalComment on above:Performed By: #### LIPID, TSH, LIVER #### [facility] [address] [place], [place] [address] Dr[address] Emmanuel HillmanMG MAMM SCREEN 3D MEKA CADon 79-88-3367IR MAMM SCREEN 3D MEKA CAD Patient: JUNI HODGES Exam Date: 09/24/2022 : 1960 Gender:F Ordering : SHAIKH Quintin CHAPIN . Admission #: [id number] Family : Order #: [id number] CLICK HERE TO VIEW EXAM RADIOLOGY REPORT [...] breast cancer at age 69. LOCATION: [facility] BREAST COMPOSITION: Scattered areas fibroglandular [...] by: Celine Saxena M.D. on 09/24/2022 at 13:35[facility] [place] Medical CenterLIPID PROFILEon 95-06-8783CBTE-HDL RATIO NORMSEE BELOWSouthern [place] Medical CenterCombeaumont hospital on above:Result Comment: 3.3 - 4.4 LOW RISK 4.4 - 7.1 AVERAGE RISK 7.1 - 11.0 MODERATE RISK >11.0 HIGH RISKPerformed By: #### LIPID, TSH #### [facility] [address] [place] [address] [address] Emmanuel De La Cruzesterol [Mass/Vol]149 mg/dLNormal<=200[facility] Comment on above:Performed By: #### LIPID, TSH #### [facility] [address] [place] [address] [address] Emmanuel De La Cruzesterol in HDL [Mass/Vol]44 mg/jXXmmskx96-03LzvAultman Alliance Community HospitalCombeaumont hospital on above:Performed By: #### LIPID, TSH #### [facility] [address] [place] [address] [address] Emmanuel HillmanCholesterol in LDL [Mass/Vol]87.6 mg/dLSouthern [place] Medical CenterComment on above:Performed By: #### LIPID, TSH #### [facility] [address] [place] [address] [address] Emmanuel Trent.total/Cholesterol in HDL [Mass ratio]3.4 {ratio} NormalAultman Alliance Community HospitalCombeaumont hospital on above:Performed By: #### LIPID, TSH #### [facility] [address] [place] [address] [address] Emmanuel Aviles NORMAL> or = 60 mg/dl - LOW CARDIOVASCULAR RISK <40 mg/dl - HIGH CARDIOVASCULAR RISKSouthern [place] Medical CenterComment on above:Performed By: #### LIPID, TSH #### [facility] [address] [place] [address] [address] Emmanuel Ocampo CALC NORMALSEE [facility]'s Medical CenterComment on above:Result Comment: <100 mg/dl OPTIMAL 100 - 129 mg/dl NEAR OR ABOVE OPTIMAL 130 - 159 mg/dl BORDERLINE HIGH 160 - 189 mg/dl HIGH >190 mg/dl VERY HIGH Performed By: #### LIPID, TSH #### [facility] [address] [place] [address] [address] Emmanuel HillmanTriglyceride [Mass/Vol]87 mg/dLNormal<=150[facility] Comment on above:Performed By: #### LIPID, TSH #### [facility] [address] [place] [address] [address] Emmanuel Ball CALC17.4 mg/dLSouthern [place] Medical CenterComment on above: Performed By: #### LIPID, TSH #### [facility] [address] [place] [address] [address] Emmanuel Gunn 58-56-8832HKF1.614 uIU/mLNormal0.358-3.740A[facility] HospitalCombeaumont hospital on above:Performed By: #### LIPID, TSH #### [facility] [address] [place] [address] Dr. Emmanuel Conway [facility] HospitalComment on above: Result Comment: <0.34 UIU/ml HYPERTHYROID 0.34-5.60 UIU/ml EUTHYROID >5.60 UIU/ml HYPOTHYROIDPerformed By: #### LIPID, TSH #### [facility] [address] [place] [address] Dr. Emmanuel HillmanProvider Letter [facility] LAWTONadan 93-66-1882Aebgzrka Letter [facility] [address], [address] [place] [address] Re: JUNI HODGES Date of : 1960 Thank you for your referral of Juni Hodges who was seen on consultation for abdominal pain, Right upper quadrant pain and nausea with vomiting. I have enclosed my consultation note for your review. I will be happy to follow Juni. Sincerely, Raymond Davalos MD General SurgeryNoShelby Memorial HospitalAmbulatory Clinical Summaryon 96-91-9180Wbwlzlwupq Clinical Summary {j6-63-2b-6a-s7-1g-36-7l-i3-l9-2w-q4-14-89-64-1c}CD:358514LvnwqtDvfgvjShelby Memorial HospitalGastroenterology Office/Clinic Noteon 90-79-4702Cxshxhilqspdblzm Office/Clinic NoteChief Complaint f/u EGD/Colon HPI Staff [...] after patient consented to recording for virtual rn clinical documentation and provider reviewed before signing. ORALIA: Dona Ramires. Follow-up With When Contact (more content not included)...[facility] SystemComment on above:Result Comment: Electronically Signed By: Dona Ramires R\.br\Date and Time Signed: 08/15/21 14:52 EDT\.br\Electronically Co-Signed By: Raman HENRY MD\.br\Date and Time Co-Signed: 08/19/21 09:50 EDTReminderson 52-36-0602Fieodnzxt From: Raman HENRY MD To: [facility] - Clinical; Sent: 08/15/2021 13:23:07 EDT Show up: 08/15/2021 13:23:00 EDT Subject: Ambulatory Reminder repeat colonoscopy in 5 years Reminder/RecallNoShelby Memorial HospitalCoding Summary.on 07-12-2021 Coding Summary. CD:272156GR:4925527EZk3nNb+PGhlYWQ+CJ2IOXBqL44wbOUmpD1KS2eRGB3LLFQGBXRVBY0RYY3jc NV2OYayM3RtvkVm [file] IGNv (more content not included)...NormalCarolinas Continuecare Hospital At Universitylorene [facility] Medical CenterUS Abdomen, Limitedon 27-88-0362FW Abdomen, LimitedExam Date/Time: 06/25/2021 08:39 EDT Reason [...] Drake Singh MD Transcribed by: VIRGIL Technologist: [facility] HospitalConsent for Treatmenton 79-44-0452Bfzijgy for Treatment [id number]#1.00CD:127NoShelby Memorial HospitalIntraOperative Documentson 46-64-4462YfnptOmilgohuz Documents [id number]#1.00CD:127The [facility] SystemPostoperative Documentson 80-76-4937Bfgmpteupggek Documents [id number]#1.00CD:127The [facility] SystemCoding Summary.on 49-31-9124Fgdwtl Summary. CD:757149LD:2530863RPk2kQt+PGhlYWQ+HC4NYWEoU53voJEkdJ4EA4fFBF8FLCPEXUJMOO0HQM0xt YR9EPnjA7GqabBc [file] IGNv (more content not included)...The [facility] SystemMain OR Intraoperative Recordon 01-40-6229Lcuz OR Intraoperative RecordIntraOp Document Type FT Summary Primary Physician: Raman HENRY MD Finalized Date/Time: 06/17/21 09:30:46 Pt. Name: JUNI HODGES Willi/Sex: 1960 Female Med Rec #: [id number] Physician: Raman HENRY MD Financial #: [id number] Pt. Type: O Room/Bed: / Admit/Disch: 06/12/21 [...] Kay RN, Mikayla Toth Role Performed Anesthesiologist Wallpaper Cleaner - Primary Scrub - Primary Administrative Tech Time In 06/12/21 12:49:00 06/12/21 12:49:00 06/12/21 [...] and tissue Entry 1 Skin Integrity Intact, [place], Warm, and Skin Abnormality No Dry Outcomes [...] a result of positioning (more content not included)...The MetroHealth SystemConsenton 55-01-[id number]#1.00CD:[address] [place], [place] [address]Discharge Instructionson 61-73-3489Kecfwknfx Instructions [id number]#1.00CD:127NoShelby Memorial HospitalIntraOperative Documentson 05-65-8653RujuqTqkmudedf Documents [id number]#1.00CD:127The [facility] SystemIntraOperative Documents [id number]#1.00CD:[address] [place], [place] [address]CBC w/Indiceson 62-47-6428Bsfjdacgaqm distribution width (RBC) [Ratio]15.6 %High10.9-14.2FMercy Health St. Elizabeth Boardman HospitalComment on above:Performed By: #### 9199813, 37570261, 4462054, 2791719 ####[place] [address] [address]Pncncphifa (Bld) [Volume fraction] 36.8 %Gedfdw99.0-46.0Marion HospitalComment on above:Performed By: #### 8231748, 26161764, 7096853, 2367856 ####[address] [address]Epdsicbquq (Bld) [Mass/Vol]12.5 g/dL Qrfvti89.0-16.0[facility] HospitalComment on above:Performed By: #### 2735124, 46126556, 9953334, 1906777 ####[place] [address] [address]XTV (RBC) [Entitic mass]28.6 pgNormal 27.0-34.0Mar[facility] HospitalComment on above:Performed By: #### 2817311, 93147528, 5940403, 6198069 ####[place] [address] [address]ZMBP (RBC) [Mass/Vol]33.8 g/zQZpbxia71.4-36.0[facility] HospitalComment on above:Performed By: #### 4502454, 66918803, 1996967, 8081471 ####[address] [address]PSW (RBC) [Entitic vol]84.5 pUKfzbjk13.0-100.0Mar[facility] HospitalComment on above:Performed By: #### 7956089, 61981083, 5395692, 6274208 ####[address] [address]Nwvmhkzj mean volume (Bld) [Entitic vol]8.0 fLNormal6.4-10.8Mar[facility] HospitalComment on above:Performed By: #### 7634013, 82677676, 7391284, 0757319 ####[address] [address]Wtvodcfni (Bld) [#/Vol]186.0 E9/ATjdjwg290.0-500.0[facility] HospitalComment on above:Performed By: #### 0632533, 52479425, 7683257, 0181321 ####[address] [address]FAL (Bld) [#/Vol]4.4 E12/LNormal4.3-5.9Marion HospitalComment on above: Performed By: #### 4250621, 65716112, 8787692, 6247558 ####[address] [address]FZI corrected for nucl RBC Auto (Bld) [#/Vol]5.7 E9/LNormal4.0-11.0Mar[facility] HospitalComment on above:Performed By: #### 0002238, 56889178, 6114949, 2552939 ####[address] [address]SQKxv 06-12-2021 Albumin [Mass/Vol]3.9 g/dLNormal3.3-5.0Mar[facility] HospitalComment on above:Performed By: #### 8430966, 48920991, 8129884, 8884377 ####[address] [address]Qrgtiwa/Globulin (S) [Mass conc ratio]1.3Rotnjr7.1-2.2FMercy Health St. Elizabeth Boardman HospitalComment on above: Performed By: #### 1017338, 23007307, 6463900, 8734019 ####[address] [address]UQJ [Catalytic activity/Vol]56 Int._Unit/ZJsjjlg60-00HvhnzuMarion HospitalComment on above:Performed By: #### 5610343, 33735153, 0315742, 2161011 ####[address] [address]KXG No additional P-5'-P [Catalytic activity/Vol]23 Int._Unit/LNormal6-46Marion HospitalComment on above:Performed By: #### 5058141, 62276177, 8457380, 1820910 ####[address] [address]Fciwn gap [Moles/Vol] 13 mmol/LNormal6-16Marion HospitalComment on above:Performed By: #### 1560142, 47091621, 2688385, 1684447 ####[address] [address]PSG [Catalytic activity/Vol]18 Int._Unit/LNormal5-43Marion HospitalComment on above:Performed By: #### 5231776, 09339057, 2393786, 2776562 ####[address] [address]Foqrziefs [Mass/Vol]0.6 mg/dLNormal 0.0-1.1FMercy Health St. Elizabeth Boardman HospitalComment on above:Performed By: #### 3717512, 09761735, 2352053, 3074474 ####[address] [address]Udgygmi [Mass/Vol]9.0 mg/dLNormal8.9-11.1FMercy Health St. Elizabeth Boardman HospitalComment on above:Performed By: #### 1459028, 76333640, 0452838, 3804726 ####[address] [address]Vhpboedg [Moles/Vol]111 mmol/WLwcntd953-716XefpwlMarion HospitalComment on above:Performed By: #### 5772239, 44568787, 4228876, 7576613 ####[facility] [place], [place] [address]AS2 [Moles/Vol]25 mmol/LNtijwq15-48VnigtcMarion HospitalComment on above:Performed By: #### 8803253, 31413939, 8473999, 2927173 ####[place] [address] [place], [place] [address]Pevkyxxuow [Mass/Vol] 0.7 mg/dLNormal0.5-1.3FMercy Health St. Elizabeth Boardman HospitalComment on above:Performed By: #### 5026842, 15974086, 6130775, 1979524 ####[address] [address]Rvvgeugb (S) [Mass/Vol]3.4 g/dLNormal 1.4-4.0Marion HospitalComment on above:Performed By: #### 8939544, 01984864, 0668448, 7235781 ####[address] [address]Oryxhwq [Mass/Vol]99 mg/mHUidbse15-104OgkvtiMarion HospitalComment on above:Result Comment: If this glucose result represents a fasting glucose, interpretation should refer tothe following reference range: 55-99 mg/dLPerformed By: #### 2926686, 94853280, 9044494, 5096333 ####[address] [address]Vtmtfupxw [Moles/Vol]3.6 mmol/LNormal3.5-5.3FMercy Health St. Elizabeth Boardman HospitalComment on above: Performed By: #### [id number], [id number], [id number], [id number] ####[address] [place], [place] [address]Hxljaxo [Mass/Vol]7.3 g/dL Normal6.0-7.8Marion HospitalComment on above:Performed By: #### [id number], [id number], [id number], [id number] ####[facility] [address] [place], [place] [address]Nwgfxb [Moles/Vol]145 mmol/LNormal 135-145Marion HospitalComment on above:Performed By: #### [id number], [id number], 9285033, [id number] ####[facility] [address] [place], [place] [address]Kcxn nitrogen [Mass/Vol]10 mg/dLNormal5-21Mar[facility] HospitalComment on above:Performed By: #### [id number], [id number], 7330812, [id number] ####[facility] [address] [place], [place] [address]Phcj nitrogen/Creatinine [Mass ratio]14 No XkxaoRwsdsp95-83 Marion HospitalComment on above:Performed By: #### [id number], [id number], [id number], [id number] ####[facility] [address] [place], [place] [address]Smwrgbc for Treatmenton 19-57-4458Cyhvalx for [id number]#1.00CD:127NormKindred Hospital LimaEndoscopic Procedure Report - Otheron 29-45-3856Ggebnfxuux Procedure Report - OtherPatient: JUNI HODGES Age: [...] current medications. Return to activities:: After 24 hours.[facility] SystemComment on above:Result Comment: Electronically Signed By: Raman HENRY MD\.br\Date and Time Signed: 06/12/21 13:09 EDTOther Comment: Missing Attachment - attachment storage system not supported [id number] Can be viewed in source systemMissing Attachment - attachment storage system not supported [id number] Can be viewed in source systemEndoscopic Procedure [...] weeks 3. Gallbladder ultrasound, CBC, CMP and lipaseNormalMarion Hospital Comment on above:Result Comment: Electronically Signed By: Raman HENRY MD\.br\Date and Time Signed: 06/12/21 13:08 EDTOther Comment: Missing Attachment - attachment storage system not supported [id number] Can be viewed in source systemMissing Attachment - attachment storage system not supported [id number] Can be viewed insour systemMissing Attachment - attachment storage system not supported [id number] Can be viewed in source systemMissing Attachment - attachment storage system not supported [id number] Can be viewed in source system Inpatient Patient Summaryon 53-61-6653Raruecyek Patient Summary [address] [address] [facility] Clinical Discharge Instructions PERSON INFORMATION Name: [...] Cap-DR) 1 Capsules By Mouth every day. Comment:NormalMarion HospitalLipase Levelon 09-51-9347Zygpow [Catalytic activity/Vol]23 U/WFdudna41-33LinhobMarion HospitalComment on above:Performed By: #### [id number], [id number], 8053242, [id number] ####[facility] [address] [place], [place] [address]Ofko OR PACU I Record on 48-52-4644Jire OR PACU I RecordPACU Phase I Document Type FT Summary Primary Physician: Raman HENRY MD Finalized Date/Time: 06/12/21 14:39:20 Pt. Name: JUNI HODGES /Sex: 1960 Female Med Rec #: [id number] Physician: Raman HENRY MD Financial #: [id number] Pt. Type: O Room/Bed: / Admit/Disch: 06/12/21 [...] Signed By: Dolores De Leon RN 06/12/21 14:39NoShelby Memorial HospitalMain OR Preoperative Recordon 50-16-0374Cyth OR Preoperative RecordHolding Area Document Type FT Summary Primary Physician: Raman HENRY MD Finalized Date/Time: 06/12/21 11:42:13 Pt. Name: JUNI HODGES /Sex: 1960 Female Med Rec #: [id number] Physician: Raman HENRY MD Financial #: [id number] Pt. Type: O Room/Bed: / Admit/Disch: 06/12/21 [...] Signatures Signed By: Rosie Bravo RN 06/12/21 11:42NoShelby Memorial HospitalMonitor Record on 04-61-6434Aosihzr [id number]#1.00CD:127 [facility] SystemOutpatient Surgery Discharge Instructionon 65-90-7845Wtejjzgion Surgery Discharge Instruction [id number] Patient Discharge Instructions PERSON INFORMATION Name: JUNI HODGES Date of : 1960 Current Date: 06/12/2021 13:10:48 PHYSICIANS Admitting Physician: MARTÍN ARMAS, [facility] Discharge Diagnosis: Esophageal inlet patch JUNI HODGES [...] to serve you. Thank you for choosing [facility] HERE ARE THE MEDICATION CHANGES [...] By Mouth every day. PATIENT EDUCATION INFORMATION Instructions:The [facility] SystemPatient Education - Texton 89-07-6142Jmnnbjw Education - TextNoShelby Memorial HospitalProgress Note-Physicianon 11-11-1616Atglctjj Note-PhysicianPatient: JUNI HODGES Age: 60 years Sex: [...] report . Respiratory: Adequate air exchange with quaker of preoperative function.. Cardiovascular: Cardiovascular function is stable and has returned to preoperative levels.. Neurologic: Pt has returned to preoperative baseline.. Review / Management Condition: Stable. Assessment Anesthetic outcome No anesthetic complications noted. Plan Transfer/ Discharge: Patient can be discharged from PACU when criteria met. Condition good.The MetroHealth SystemComment on above:Result Comment: Electronically Signed By: Albert [...] 1 EA, Refill(s) 0, PER PHYSICIAN INSTRUCTIONS, [facility], 166, cm, 04/23/21 9:16:00 [...] data available Respiratory: Adequate air exchange with quaker of preoperative function.. Cardiovascular: Cardiovascular function is stable and has returned to preoperative levels.. Neurologic: Pt has returned to preoperative baseline.. Review / Management Condition: Stable. Assessment Anesthetic outcome No anesthetic complications noted. Plan Transfer/ Discharge: Patient can be discharged from PACU when criteria met. Condition good.The MetroHealth SystemComment on above:Result Comment: Electronically Signed By: Albetr Smith JR, DO 56-99-8319YNX/1.73 sq M.predicted among blacks MDRD (S/P/Bld) [Vol rate/Area]mL/min/{1.73_m2}Normal >=59Marion HospitalComment on above:Order Comment: Order added by Discern Expert.Result Comment: eGFR is race adjusted. AA=. Performed By: #### [id number], [id number], [id number], [id number] ####[facility] [address] [place], [place] [address]TGM/1.73 sq M.predicted among non-blacks MDRD (S/P/Bld) [Vol rate/Area]mL/min/{1.73_m2}Normal>=59Marion HospitalComment on above:Order Comment: Order added by Discern Expert. Result Comment: Chronic kidney disease could be indicated at eGFR's of less than 60 mL/min/1.73m2. Kidney failure is indicated at less than 15 mL/min/1.73m2. Performed By: #### [id number], [id number], [id number], [id number] ####[facility] [address] [place], [place] [address]Mgfojxqc Note-Physicianon 00-93-2181Zalirtgs Note-PhysicianPatient: JUNI HODGES Age: 60 years Sex: [...] 1 EA, Refill(s) 0, PER PHYSICIAN INSTRUCTIONS, [facility], 166, cm, 04/23/21 9:16:00 [...] review: No qualifying data available . Plan [place] [employer] Anesthesiologists (ASA) physical status classification: Class II. Anesthetic Preoperative Plan Anesthesia: Monitored anesthesia care and general anesthesia if required.. Anesthetic plan, risks, benefits, and alternatives discussed with the patient and/or family. Pt. and/or family present and agree to proceed as planned.. Discussed the importance of abstaining from tobacco products, and offered counseling if desired..The MetroHealth SystemComment on above:Result Comment: Electronically Signed By: Albert Smith JR, DO.chacho\Date and Time Signed: 06/11/21 14:42 EDT Vital Signs Date TimeVital SignValuePerforming ZxyjjaiafLpdvhlwb50-66-2844 10:090400Body .56 cmJessica Mojgan DO Work Phone: [phone] [place], [place] 4313010-29-2025 10:09-0400 Body mass index (BMI) [Ratio]37.5 kg/s3Gmczxvm Mojgan DO Work Phone: [facility]10-29-2025 10:09-0400 Body anedsm07.33 kgJessica Mojgan DO Work Phone: [facility]10-29-2025 10:09-0400 Diastolic blood cizlakzp53 mm[Hg]Maddison Mojgan DO Work Phone: 1(342)465-[facility]10-29-2025 10:09-0400 Heart rate69 /minJessica Mojgan DO Work Phone: 7(100)671-[facility]10-29-2025 10:09-0400 Systolic blood krjtaifc823 mm[Hg]Maddison Mojgan DO Work Phone: [facility]10-16-2025 10:55-0400 Body tnynjy953.56 cmCatherine Ly DO Work Phone: 1(419)[address] [place], [place] 3803610-16-2025 10:55-0400 Body mass index (BMI) [Ratio]37.5 kg/n9Muawizyyo Ly DO Work Phone: 1(158)[address] [place], [place] 3803610-16-2025 10:55-0400 Body eawwnx34.33 kgCatherine Ly DO Work Phone: [phone])[address] [place], [place] 3803610-16-2025 10:55-0400 Diastolic blood zhjonvpd89 mm[Hg]Marlen Ly DO Work Phone: [phone])[address] [place], [place] 3803610-16-2025 10:55-0400 Heart rate73 /minCatherine Ly DO Work Phone: 1(011)[address] [place], [place] 3803610-16-2025 10:55-0400 Respiratory rate20 /minCatherine Ly DO Work Phone: [phone])[address] [place], [place] 3803610-16-2025 10:55-0400 SaO2% (BldA) [Mass fraction]96 %Marlen Ly DO Work Phone: 1(732)[address] [place], [place] 3803610-16-2025 10:55-0400 Systolic blood gyxewcfz999 mm[Hg]Marlen Ly DO Work Phone: 1(264)[address] [place], [place] 3803607-30-2025 14:35-0400 Diastolic blood medicgss78 mm[Hg]Charo Baker MD Work Phone: 1(710)[address] [place], [place] 5592107-30-2025 14:35-0400 Heart rate74 /Curtis Baker MD Work Phone: 1(417)[address] [place], [place] 5592107-30-2025 14:35-0400 Respiratory rate17 /Curtis Baker MD Work Phone: 1(918)[address] [place], [place] 5592107-30-2025 14:35-0400 SaO2% (BldA) [Mass fraction]94 %Charo Baker MD Work Phone: 1(587)[address] [place], [place] 5592107-30-2025 14:35-0400 Systolic blood aoqlwgbz256 mm[Hg]Charo Baker MD Work Phone: 1(081)[address] [place], [place] 5592107-30-2025 12:22-0400 Body itkvqj660.56 cmCharo Baker MD Work Phone: 1(721)[address] [place], [place] 5592107-30-2025 12:22-0400 Body .25 kgCharo Baker MD Work Phone: 1(627)[address] [place], [place] 5592107-14-2025 10:22-0400 Body .56 cmCharo Baker MD Work Phone: 1(603)[address] [place], [place] 5592107-14-2025 10:22-0400 Body mass index (BMI) [Ratio]37.8 kg/m2Charo Baker MD Work Phone: 1(771)[address] [place], [place] 5592107-14-2025 10:22-0400 Body rouafx47.79 kgCharo Baker MD Work Phone: 1(914)[address] [place], [place] 5592107-14-2025 10:22-0400 Diastolic blood youaxwku94 mm[Hg]Charo Baker MD Work Phone: 1(193)[address] [place], [place] 5592107-14-2025 10:22-0400 Heart rate78 /minCharo Baker MD Work Phone: 1(432)[address] [place], [place] 5592107-14-2025 10:22-0400 Systolic blood utpusuyb060 mm[Hg]Charo Baker MD Work Phone: 1(820)[address] [place], [place] 5592107-09-2025 10:50-0400 Body .1 cmZachary Aldana MD Work Phone: [facility] HospitalNqxlipjzpo07-97-0489 10:50-0400Body mass index (BMI) [Ratio]37.28 kg/m2Zachary Aldana MD Work Phone: [facility] HospitalKvnjzonjsm12-03-2908 10:50-0400Body temperature 95.7 [degF]Zachary Aldana MD Work Phone: [facility] HospitalPkurbaahyq47-96-4323 10:50-0400Body ahdobk044.61 kgZachary Aldana MD Work Phone: [facility] HospitalXirdjdosbm39-68-5711 10:50-0400Diastolic blood qqaefycv36 mm[Hg]Zachary Aldana MD Work Phone: [facility] HospitalMsukkfywzx64-65-9408 10:50-0400Heart rate91 /min Zachary Aldana MD Work Phone: [facility] HospitalJhwhfhhacq67-96-1125 10:50-0400Respiratory rate22 /minZachary Aldana MD Work Phone: [facility] HospitalWnadzsfbhh26-57-6453 10:50-3320UaT8% (BldA) [Mass fraction]97 %Zachary Aldana MD Work Phone: [facility] HospitalDiktbgxaxl72-30-0076 10:50-0400Systolic blood npkllgui002 mm[Hg]Zachary Aldana MD Work Phone: [facility] HospitalVijynwdcyw60-58-5675 16:28-0400Body temperature 97.2 [degF]Leroy Zacarias DO Work Phone: [facility] HospitalGxdaowxhwo07-63-1798 16:28-0400Diastolic blood nzekbzdv55 mm[Hg]Leroy Tesmarshall ALEJANDRE Work Phone: [facility] HospitalSnmusvgxou50-66-8693 16:28-0400Heart rate85 /min Leroy Finamarshall ALEJANDRE Work Phone: [facility] HospitalLxfpgrxtta14-97-9557 16:28-8457WiW8% (BldA) [Mass fraction]97 %Leroy Finamarshall ALEJANDRE Work Phone: [facility] HospitalMvhjgpypiw74-34-3528 16:28-0400Systolic blood esvfdopq090 mm[Hg]Leroy Zacarias DO Work Phone: [facility] HospitalUxwfbubdzj40-11-4011 10:25-0400Body hbozpa165.1 cmZachary Aldana MD Work Phone: [facility] HospitalEjschaoeqb53-56-3890 10:25-0400Body mass index (BMI) [Ratio]36.44 kg/m2Zachary Aldana MD Work Phone: [facility] HospitalPsdxahbbqe94-73-4662 10:25-0400Body temperature 97.3 [degF]Zachary Aldana MD Work Phone: [facility] HospitalEypyfmogmh96-75-3869 10:25-0400Body jqqyge13.34 kgZachary Aldana MD Work Phone: [facility] HospitalWofdmpfxws74-93-5589 10:25-0400Diastolic blood vwpjqrqe24 mm[Hg]Zachary Aldana MD Work Phone: [facility] HospitalBbuvtdnpge51-74-2185 10:25-0400Heart rate99 /min Zachary Aldana MD Work Phone: [facility] HospitalNwyzncoeku59-23-6706 10:25-0400Respiratory rate20 /minZachary Aldana MD Work Phone: [facility] HospitalQtkficdsyf56-62-7307 10:25-5294KaW2% (BldA) [Mass fraction]96 %Zachary Aldana MD Work Phone: [facility] HospitalEpisbiypok75-31-3393 10:25-0400Systolic blood cojhjqch456 mm[Hg]Zachary Aldana MD Work Phone: [facility] HospitalWmjcoazuub03-13-4967 13:01-0500Body cipekm073.1 cmBen Turpin RADIOLOGIC THERAPIST Work Phone: [facility] HospitalCzpoygwwmk39-80-3901 13:01-0500Body mass index (BMI) [Ratio]36.01 kg/a6Htpdoncx Turpin RADIOLOGIC THERAPIST Work Phone: [facility] HospitalQzzldoqerx92-27-2541 13:01-0500Body temperature 97.2 [degF]Ben Turpin RADIOLOGIC THERAPIST Work Phone: [facility] HospitalFmnwsxvwwb21-59-3698 13:01-0500Body .16 kgBen Trevinotrick RADIOLOGIC THERAPIST Work Phone: [facility] HospitalKlqgmlaarq15-16-0143 13:01-0500Diastolic blood zohhtyoi84 mm[Hg]Ben Maopatrick RADIOLOGIC THERAPIST Work Phone: [facility] HospitalZlpswoyicq96-61-4064 13:01-0500Heart xstu767 /min Ben Maopatrick RADIOLOGIC THERAPIST Work Phone: [facility] HospitalBuydqatozu88-07-0605 13:01-0500Respiratory rate16 /minBen Trevinotrick RADIOLOGIC THERAPIST Work Phone: [facility] HospitalQttfzhwzdc28-72-8366 13:01-5229NxQ9% (BldA) [Mass fraction]95 %Ben Trevinotrick RADIOLOGIC THERAPIST Work Phone: [facility] HospitalIikijtchzk29-13-8424 13:01-0500Systolic blood uztsculq422 mm[Hg]Ben Trevinotrick RADIOLOGIC THERAPIST Work Phone: [facility] HospitalWatsqywxbs04-71-0918 12:30-0500Body lztkzi113.1 cm[facility]02-25-2024 12:30-0500Body mass index (BMI) [Ratio]36.3 kg/s5RbeyujmltThe [facility] Hospital02-25-2024 12:30-0500Body lhksywqokzs03.2 [degF][facility]02-25-2024 12:30-0500Body csxjew69.1 kg[facility]02-25-2024 12:30-0500Heart rate74 /[facility]02-25-2024 12:30-0500Respiratory rate18 /[facility]02-25-2024 12:30-2419PaF2% (BldA) [Mass fraction]97 %[facility] Encounters Encounter DateEncounter TypeCare ProviderFacilityStart: 08-30-2025 End: 48-93-9156jsscckvoroSvkkvrm Mojgan DO Work Phone: [phone]-Effkjhrjn Health GastroStart: 08-30-2025 End: 87-57-0814Dxvugyl encounter Kay Walter APRN-[facility] Work Phone: Start: 08-17-2025 End: 65-57-2817dpiiuqfzkeAytvkyxoc L Ly DO Work Phone: [facility] Work Phone: Start: 08-17-2025 End: 64-53-8873Tllaaql encounter procedureJejasen Mojgan DO-[facility] [place] Work Phone: Start: 06-21-2025 End: 04-91-5957jjdieixcsvULUJKKettering Memorial Hospital Start: 43-70-8516bukcqknkkoWVXUUKettering Memorial Hospital Start: 06-20-2025 End: 11-51-6531spnrfdxhokXQOKIBlanchard Valley Health System Start: 06-01-2025 End: 27-76-1215Zocnitsjj encounterMarsharri Aldana MD Work Phone: [facility] FMStart: 05-31-2025 End: 77-63-2830mukwcmjivyZtiuxqpxh L LyFacility:[facility] Hospitaltart: 26-79-5432Edt-patient / Non-visitCatherine L Ly DO-[facility] Work Phone: Start: 05-19-2025 End: 60-71-7739Xjbmzgtak Result EncounterZachary Aldana MD Work Phone: noms External Department UnsolicitedStart: 05-19-2025 End: 01-72-1483Nopniwkhh Result EncounterZachary Aldana MD Work Phone: noms External Department UnsolicitedStart: 05-15-2025 End: 50-56-3371qvalwfbnevLkj E Knight MD Work Phone: [facility] Work Phone: Start: 05-15-2025 End: 15-09-9880Lhnonjs encounter Kay [facility]NFirst[facility] Work Phone: Start: 05-10-2025 End: 98-04-7702Ktwfcy Xander Aldana MD Work Phone: [facility] FMStart: 05-10-2025 End: 32-23-0062Bhimbo Xander Aldana MD Work Phone: [facility] FMStart: 05-10-2025 End: 57-05-0322Avaorj outpatient visit 25 minutesZachary Aldana MD Work Phone: [facility] FMComment on above:Degeneration of intervertebral disc of lumbar region with discogenic back pain (Primary Dx); Gastroesophageal reflux disease without esophagitis; Globus sensationStart: 05-10-2025 End: 20-23-5511qqoqlbpupbBPZB NADERERNot AvailableStart: 04-25-2025 End: 34-17-2155usatczfezdCLGQWWB G TESMONDNot AvailableStart: 04-25-2025 End: 55-69-5828Jyvssf outpatient visit 25 minutesLeroy Zacarias DO Work Phone: NOGT SWS UCComment on above:Strain of left calf muscle (Primary Dx); Left knee pain, unspecified chronicityStart: 04-24-2025 End: 30-37-9756Omkqxzgmq Radha Aldana MD Work Phone: [facility] FMStart: 02-23-2025 End: 02-74-0100Cdwagg Xander Aldana MD Work Phone: [facility] FMStart: 02-23-2025 End: 81-24-3299Ujzieh Xander Aldana MD Work Phone: [facility] FMStart: 02-23-2025 End: 74-66-2524Tucaswojl Result Radha Aldana MD Work Phone: [facility] External Department UnsolicitedStart: 02-23-2025 End: 99-92-5167imwirbuxdiEMVY NADERERNot AvailableStart: 02-23-2025 End: 11-54-4526Wtqlet outpatient visit 25 minutesMarc Naderer MD Work Phone: [facility] FMComment on above:Chronic bilateral low back pain with right-sided sciatica (Primary Dx); Gastroesophageal reflux disease without esophagitis; Class 2 severe obesity due to excess calories with serious comorbidity and body mass index (BMI) of36.0 to 36.9 in adult (CMS/HCC); Dyslipidemia (CMS/HCC)Start: 12-16-2024 End: 17-22-0034Hlemcsiid Result EncounterBrittany Turpin RADIOLOGIC THERAPIST Work Phone: noms External Department UnsolicitedStart: 12-16-2024 End: 64-10-6677Bpytrkkio Result EncounterBrittany Turpin RADIOLOGIC THERAPIST Work Phone: noms External Department UnsolicitedStart: 11-30-2024 End: 28-69-0118Biwbdb flowsheetBrittany Turpin RADIOLOGIC THERAPIST Work Phone: [facility] FMStart: 11-30-2024 End: 49-98-3717Dtqqbr flowsheetBrittany Turpin RADIOLOGIC THERAPIST Work Phone: [facility] FMStart: 11-30-2024 End: 25-48-3478Ssaptd outpatient visit 15 minutesBrittany Turpin RADIOLOGIC THERAPIST Work Phone: [facility] FMComment on above:Other hyperlipidemia (CMS/HCC) (Primary Dx); Viral upper respiratory tract infection; Encounter for screening mammogram for malignant neoplasm of breast; Gastroesophageal reflux disease without esophagitisStart: 11-30-2024 End: 43-96-2812xuixcxntflWBANCIIA FITZPATRICKNot AvailableStart: 11-28-2024 End: 21-34-3767ZpjdfvNptlcfvv Turpin RADIOLOGIC THERAPIST Work Phone: [facility] FMComment on above:Other specified hypothyroidism (CMS/HCC)Hyperlipidemia, unspecified hyperlipidemia type (CMS/HCC)Start: 05-25-2024 End: 93-18-0313Bbfddtxky Result Ora Chapin MD Work Phone: noms External Department UnsolicitedStart: 05-25-2024 End: 06-40-4281Rwiyvncxl Result EncounterSallison Chapin MD Work Phone: noms External Department UnsolicitedStart: 05-24-2024 End: 40-97-0484Gxydokeka Result EncounterSallison Chapin MD Work Phone: noms External Department UnsolicitedStart: 05-24-2024 End: 96-51-6201Kxrkrjcwa Result EncounterSallison Chapin MD Work Phone: noms External Department UnsolicitedStart: 05-17-2024 End: 16-09-9225Ssyxanj encounter statusChachonaila Maopatrick YENIFER Work Phone: noms HealthcareStart: 05-17-2024 End: 56-33-1159ypjkaddfdbYKJNCE FABjWADNot AvailableStart: 02-02-2024 End: 48-19-0360Grqxewrtt Result EncounterSallison Chapin MD Work Phone: noms External Department UnsolicitedStart: 02-02-2024 End: 08-67-6452Mdeceppnb Result EncounterSallison Chapin MD Work Phone: noms External Department UnsolicitedStart: 12-27-2023 End: 07-58-4565nfuakhdjxbWdnfyxjfrFulton County Health Center Work Phone: Start: 12-27-2023 End: 25-44-0041Bxexvgh encounter procedureC[facility] Health Phys[facility] Work Phone: Start: 12-16-2022 End: 88-39-9087jcnwxgwvrrWEBTYY H FANODFacility:R3Qucne: 09-24-2022 End: 34-93-6678zdfqhlnppiGVIAPJ H FAWWADFacility:K3Gfjnu: 05-13-2022 End: 90-50-4571jqxgbzmusvDCNAK B APLINGFacility:A9Etdqj: 04-08-2022 End: 73-01-2696mohpgvykidDRIUXT H FAWWADFacility:J7Ilaul: 03-25-2022 End: 48-36-6616bcehueyajlNOFPZH H FAWWADFacility:H1 Procedures DateProcedureProcedure DetailPerforming ClinicianStart: 06-36-7861DZ LUMBAR SPINE WO CONMarc Kaushik ARMAS Work Phone: Start: 83-66-0402MJ LUMBAR SPINE 2 OR 3VMarc Kaushik ARMAS Work Phone: Start: 50-16-2762AD TOMOSYNTHESIS SCREENING BIBrittany Turpin RADIOLOGIC THERAPIST Work Phone: Start: 38-17-3356WlouqnwrtnfPyvgyite Turpin RADIOLOGIC THERAPIST Work Phone: Start: 67-74-1542XC CHEST WO Otto Chapin MD Work Phone: Start: 72-40-6102YO DEXA AXIAL SKELETONShaikh Tavares ARMAS Work Phone: Start: 26-04-8651XB CHEST 2VSallison Chapin MD Work Phone: Start: 68-73-4189AfbetnnrfsgJcryqrxk Turpin RADIOLOGIC THERAPIST Work Phone: Start: 06-24-3906PttztibskhlDokvqttr Turpin RADIOLOGIC THERAPIST Work Phone: Plan of Treatment DateCare ActivityDetailAuthorStart: 50-61-9335Jcujvfiqe for malignant neoplasm of colonNOMS HealthcareStart: 66-11-6949Ayycfjznc for malignant neoplasm of breastMammogramNOMS HealthcareStart: 94-18-1075Vecwipkwb for malignant neoplasm of cervixCervical Cancer ScreeningNOMS HealthcareComment on above:Postponed from 1989 (Patient Refused)Start: 08-17-2025 End: 52-76-1484Iytrlwq encounter ucskaqlby00/16/2025 11:00 AM EDT Office Visit [facility] [address] [place] [id number] Zachary Aldana MD [address] [place] [phone] [facility] FMStart: 88-41-9762Sjbelzvbw vaccinationInfluenza Vaccine (#1)[facility] HospitalStart: 05-31-2025 End: 91-21-4153EabmcpxvkCleveland Clinic South Pointe Hospitaltart: 05-30-2025 End: 57-36-6392Bmfzgyr encounter procedureNOJIM [facility]ERR[facility] FMStart: 05-23-2025 End: 52-47-7617Kmthbmf encounter svdvlhomd84/22/2025 10:15 AM EDT Office Visit [facility] [address] [place] [phone] Zachary Aldana MD [address] [place] [address] [facility] FMStart: 05-10-2025 End: 88-04-8328OE Lumbar spine WO contrastMR lumbar spine wo contrast Imaging Routine Degeneration of intervertebral disc of lumbar region with discogenic back pain Expected: 05/10/2025, Expires: 05/10/2026NOUT [employer] Work Phone: Comment on above:Expected: 05/10/2025, Expires: 05/10/2026Start: 05-10-2025 End: 75-61-6325Pcbafnb encounter procedureNOJIM TALIAFERRO [facility] FMComment on above:Arrived Start: 02-23-2025 End: 31-40-6883FO Lumbar spine 2 or 3 ViewsXR lumbar spine 2 or 3 views Imaging Routine Chronic bilateral low back pain with right-sided sciatica Expected: 02/23/2025, Expires: 02/23/2026NOUT [employer] Work Phone: Comment on above:Expected: 02/23/2025, Expires: 02/23/2026Start: 39-83-3668Oqmvwrezkpcv Vaccine: 65+ Years (1 of 1 - PCV) Pneumococcal Vaccine: 65+ Years (1 of 1 - PCV)[facility] HealthcareComment on above: Postponed from 2024 (Patient Ill Today)Start: 11-30-2024 End: 94-98-1472CP Breast - bilateral ScreeningBilateral screening mammogram Imaging Routine Encounter for screening mammogram for malignant neoplasm of breast Expected: 11/30/2024, Expires: 01/28/2026[facility] Work Phone: Comment on above:Expected: 11/30/2024, Expires: 01/28/2026Start: 11-30-2024 End: 53-54-7994Qxtxqcr encounter procedureNOMS CWM FMComment on above:Arrived Start: 48-80-4576Wqyojsnge for malignant neoplasm of breastMammogramNOUT HealthcareStart: 72-53-9905Ytcfgnyfmovw Vaccine: 65+ Years (1 of 1 - PCV) Pneumococcal Vaccine: 65+ Years (1 of 1 - PCV)[facility] HealthcareStart: 07-03-2024 Influenza vaccinationInfluenza Vaccine (#1)[facility] HealthcareStart: 2009 Pneumococcal Vaccine: 65+ Years (1 of 1 - PCV)Pneumococcal Vaccine: 65+ Years (1 of 1 - PCV)[facility] HealthcareStart: 34-37-3438Kgsejruct for malignant neoplasm of cervixNOMS HealthcareStart: 06-01-3894Yqwsyalmf for malignant neoplasm of cervix Pap SmearNOUT HealthcareStart: 36-08-1365Zzqyrrrqn for malignant neoplasm of colonNOMS HealthcareCT Unspecified body regionThe [facility] Hospital DXA Skeletal system.axial Views for bone densityThe Jewish HospitalPatient EducationGastritis - Discharge instructions Know your [facility] Work Phone: Stress cardiac echo study reportBaptist Health Hospital Doral Immunizations Immunization DateImmunizationNotesCare RaydiisqPotokfrc51-40-5652wmcwoumeo virus vaccine, unspecified formulationBrnaila Turpin RADIOLOGIC THERAPIST Work Phone: [facility] HospitalGbfubabhbi49-80-6011Wlrhmethn, Seasonal, Quadrivalent, AdjuvantedBrittany Turpin RADIOLOGIC THERAPIST Work Phone: [phone] [place], [place] [address]Iufibpgetk41-52-8070VWCL-DLL-5 (COVID-19) vaccine, mRNA, spike protein, LNP, PF, daysi-sucrose, 30 mcg/0.3 mLBrittany Turpin RADIOLOGIC THERAPIST Work Phone: [facility] HospitalVnvlrqtwyn04-77-5737uxyqkwklc virus vaccine, unspecified formulationBrittany Turpin RADIOLOGIC THERAPIST Work Phone: [phone] [place], [place] [address]Efvzdruujn63-72-0489wufslo vaccine recombinant Ben Turpin RADIOLOGIC THERAPIST Work Phone: [phone] [place], [place] [address]Zmgvodkykh68-69-5751ucbuje vaccine recombinant Ben Turpin RADIOLOGIC THERAPIST Work Phone: [phone] [place], [place] [address]Ilhmomfofp84-16-9099emeugdvsa, injectable, quadrivalent, preservative freeBrittany Turpin RADIOLOGIC THERAPIST Work Phone: [phone] [place], [place] [address]Xjizrliyiq73-43-2840cqjwrztrm, injectable, quadrivalent, preservative freeBrittany Turpin RADIOLOGIC THERAPIST Work Phone: [phone] [place], [place] [address]Fzgjjksymb79-09-9962gadzxapva, injectable, quadrivalent, contains preservativeBrittany Turpin RADIOLOGIC THERAPIST Work Phone: [phone] [place], [place] [address]Rxnwavekhx97-70-9970nvffzkywq, injectable, quadrivalent, contains preservativeBrittany Turpin RADIOLOGIC THERAPIST Work Phone: [phone] [place], [place] [address]Ohgrfqsprg74-82-5525bpnkigupy, injectable, quadrivalent, preservative freeBrittany Turpin RADIOLOGIC THERAPIST Work Phone: [phone] [place], [place] [address]Odkzujyyxk48-67-4579tsflaptov, seasonal, injectableBrittany Turpin RADIOLOGIC THERAPIST Work Phone: [phone] [place] [address] Payers DatePayer CategoryMdyerRegional [facility] Of [facility] [id number]-esi [id number] [address] [id number] [id number] Health Insurance [id number] 56-35-6059Zsvl-buc62[id number] 2.0.1.942230.3.579.[id number] 2.0.1.959266.3.579.2.14103-54-3349Ocqdfpq5669840 2.0.1.182973.3.579.2.48516-25-5811Hfzkfdu0362623 2.840.1.112326.3.579.2.38655-40-4807Tpyjvfk9767529 2.0.1.354660.3.579.[id number] 2.16840.1.712967.3.57[id number] 2.16840.1.768032.3.579.2.662740-66-0169Zqkxifd41179292 2.0.1.441632.3.579.2.027790-07-5249Mwwbptf0093053 2..0.1.950733.3.579.2.390170-53-5129Aojgotd9208430 2.0.1.801867.3.579.2.488876-40-3945Tlqgygy4259025 2.16.840.1.564219.3.579.2.5940Qwqegbb5451505 2.0.1.621303.3.579.2.593 SghbwqqSGP101E45945 4y6w315d-qaix-4gex-a4sr-[id number] 558c62pw-xoc0-1679-v5se-[id number] 1448x355-9464-56e5-3i17-3769pc7l833tQnhfpmo26758281 2.0.1.762993.3.579.2.531 Social History DateTypeDetailFacilityTobacco smoking status NHISUnknown if ever smokedFlower Hospital Work Phone: Start: 14-39-4006Xui Assigned At [facility] Hospitaltart: 57-36-8114Zehpoxu smoking status NHISNever smoked tobaccoNOMS HealthcareStart: 88-05-1115Keasaxy use and exposureSmokeless tobacco non-userNOMS HealthcareStart: 02-02-2024 End: 88-52-6627Lrtzpylpt beverage intakeCurrent drinker of alcohol (finding)[facility] HealthcareStart: 05-17-2024 End: 15-59-9083Dylaons of Social functionNOMS HealthcareStart: 05-17-2024 End: 45-77-8526Uuujmoa use panelNOMS HealthcareStart: 60-54-3109Znbceau Comment OCCASSIONALNOMS HealthcareStart: 64-47-4878Boc assigned at birthNot on fileNOMS HealthcareHow often do you need to have someone help you when you read instructions, pamphlets, or other written material from your doctor or pharmacy [SILS]NeverNOMS HealthcareWithin the last year, have you been afraid of your partner or ex-partner?NoNOMS HealthcareDo you belong to any clubs or organizations such as christianity groups, unions, fraSnapsort or athletic groups, or school groups?YesNOMS HealthcareAre you now , , , , never or living with a partner?MarriedNOMS HealthcareHow often to you have a drink containing alcohol?Monthly or lessNOMS HealthcareHow many standard drinks containing alcohol do you have on a typical day?3 or 4NOMS HealthcareHow often do you have 6 or more drinks on 1 occasion?Less than monthly [facility] HealthcareStart: 23-41-8597Khy hard is it for you to pay for the very basics like food, housing, medical care, and heatingNot hard at allNOUT Healthcare(I/We) worried whether (my/our) food would run out before (I/we) got money to buy more.Never trueNOUT HealthcareTobacco smoking status NHISUnknown if ever smokedFlower Hospital Work Phone: SexFemale (finding)[facility] Start: 05-31-2025 End: 51-65-2914Kkgdkij smoking status NHISEx-smoker (finding)[facility] HospitalNEGATED: Highlighted rowStart: NINFHistory of tobacco usePassive smokerNOUT Healthcare Functional Status AbgpSkyfzlrkvaXrwcfjGjuffbnj43-89-6098Fmlyi score [AUDIT-C]3 02/21/2025 9:33 AM EDT Myccharlat, GenericSainte Genevieve County Memorial HospitalLxbzuvviha16-50-2733Ndo often do you have a drink containing alcohol?Monthly or less 02/21/2025 9:33 AM EDT Mychart, Generic Monthly or lessNOSaint Alexius HospitalCxclycysxt89-69-8363Qos many standard drinks containing alcohol do you have on a typical day?3 or 4 02/21/2025 9:33 AM EDT Mychart, Generic 3 or 4NOSaint Alexius HospitalHsiomapoyf27-90-5759Tkm often do you have 6 or more drinks on 1 occasion?Less than monthly 02/21/2025 9:33 AM EDT Mychart, Generic Less than monthlyNOSaint Alexius HospitalKwbaesbtrz78-28-2298Aiizzmw Health Questionnaire 2 item (PHQ-2) [Reported][facility] Clinical Notes 06-13-2021 to 08-17-2025 Note Date & RqxhDbmgJfwckltv93-83-6141 Evaluation note* Diagnosis Onset Date Resolution Status Admit Date Ex-smoker acuteOctober 2024 10:49amFacet arthritis of lumbar regionacuteOctober 2024 10:49amGERD (gastroesophageal reflux disease)acuteOctober 2024 10:49amHypercholesteremiaacuteOctober 2024 10:49amHypothyroidismacute October 2024 10:49amOsteopeniaacuteOctober 2024 10:49amTingling of right upper extremityacuteOct2024 10:49am [facility] Work Phone: [phone] 938-733708-20-2025 NoteIn person visit Chief complaint: lowre back pain ANDREAFSKI: She was here with her frind Lily [...] years She used to work as an manager life insurance ROS: As above Medical History[1] Surgical History[2] [...] today in a separate appointment - Ms. oHdges has mostly back pain - her imaging [...] noon, in the evening, and at bedtime. rtppfofy-kik-bnfvpnp fumarate (Multi Vitamin) 9 mg iron/15 mL liquid Take by mouth. lz-wsd-DY-vit B-nqlfjb-xwalhkr 200 mcg-15 mcg- 5 mg-1 mg capsule [...] [4] Allergies Allergen Reactions Cephalexin Hives Clindamycin [facility]07-31-2025 Telephone encounter Note* Telephone Encounter - EWA MCKOY - 06/01/2025 9:24 AM EDT Patient is looking to change neuro. She would like to go to Dr Reich at [place] Czhgorvhqh10-93-8381 Miscellaneous Notes* Telephone Encounter - EWA MCKOY - 06/01/2025 9:24 AM EDT Patient is looking to change neuro. She would like to go to Dr Reich at [place] documented in this encounterSainte Genevieve County Memorial HospitalUnbdxrphoc57-35-0212 Evaluation note* Diagnosis Onset Date Resolution Status Admit Date Dyspepsia acuteJuly 2024 10:16amGERD (gastroesophageal reflux disease)acuteJuly 2024 10:16amGlobus sensationacuteJuly 2024 10:16am [facility] Work Phone: 1([phone] 125-558007-09-2025 History of Present illness Narrative* Zachary Aldana [...] Ambulatory referral to Gastroenterology documented in this encounterSainte Genevieve County Memorial HospitalBdjiryahbr81-13-3339 Telephone encounter Note* Telephone Encounter - Zachary Aldana MD - 04/25/2025 4:41 PM EDT Would need visit and can order MRI. [facility] HospitalQrtkckgnho68-98-8633 Miscellaneous Notes* Telephone Encounter - Zachary Aldana [...] about what to do. documented in this encounterSainte Genevieve County Memorial HospitalSxfeodccqx64-62-9154 History of Present illness Narrative* Shaila Prabhakar [...] venous duplex left; Future documented in this encounterNOSaint Alexius HospitalRbclmadjkw08-46-9315 Telephone encounter Note* Telephone Encounter - Ita Clemons - 04/25/2025 1:15 PM EDT Patient called and stated she finished her physical therapy about 3 weeks ago and wondered what sheshould do next. an [facility] HospitalYojvlqejyh27-84-3431 Telephone encounter Note* Telephone Encounter - Zachary Aldana MD - 04/25/2025 12:59 PM EDT Unclear etiology of pain and patient needs seen to be appropriately assessed and treated. Try to schedule in office or go to urgent care. [facility] HospitalLdvwmtaudm68-70-6122 Telephone encounter Note* Telephone Encounter - Karma Marshall - 04/24/2025 10:45 AM EDT Left leg is swelling and tingling just above the ankle. She is seeking direction about what to do. [facility] HospitalHoxonbobom30-00-9893 History of Present illness Narrative* Zachary Aldana [...] 2 or 3 views documented in this encounterSainte Genevieve County Memorial HospitalCxvllzavev89-52-3026 History of Present illness Narrative* Ben Turpin [...] Orders Bilateral screening mammogram documented in this encounterSainte Genevieve County Memorial HospitalJcfodjpifh52-91-7677 Instructions* Patient Instructions* Ben Turpin NP - [...] THE NEAREST EMERGENCY DEPARTMENT.\ documented in this encounterSainte Genevieve County Memorial HospitalYsgxrlalie19-56-5167 NotePROCEDURE: XR HIP LT 2 3V W [...] Electronically authenticated by: MAKENZIE GOLDMAN Date: 2022-04-08 17:50[facility]12-08-2021 NoteChief Complaint consultation for abdominal pain, [...] Hyperlipidemia: Sister and Brother. Hypertension: Sister. Hypothyroidism: Sister.[facility] HospitalComment on above:Result Comment: Electronically Signed By: KINZA ARMAS, Raymond Zaidi\Date and Time Signed: 10/09/21 21:37 [id number] NotePatient: JUNI HODGES Age: 60 years Sex: Female : 1960 Associated Diagnoses: None Author: Esteban Rose Results Review Original Procedure Date 06/12/2021 Revised repeat colonoscopy interval 5 years Adenomatous polyp(s) present 1 or 2 tubular adenomas less than 10mm Adenocarcinoma present No Serrated lesion(s) present No Hyperplastic polyp(s) present [facility]08-12-2021 Note [id number]:127[facility] Evaluation noteNo assessment information availableFlower Hospital Work Phone: Evaluation note* Diagnosis Other [...] specified hypothyroidism (CMS/HCC) documented in this encounter [facility] HealthcareEvaluation note* Diagnosis Other specified hypothyroidism [...] hyperlipidemia type (CMS/HCC) documented in this encounter [facility] HealthcareEvaluation note* Diagnosis Other specified hypothyroidism (CMS/HCC)- Primary Other hyperlipidemia (CMS/HCC) Multiple lung nodules on CT Cellulitis of face Cellulitis and abscess of face Other specified hypothyroidism (CMS/HCC)- Primary Age-related osteoporosis without current pathological fracture (CMS/HCC) Other hyperlipidemia (CMS/HCC) Gastroesophageal reflux disease without esophagitis- Primary Esophageal reflux Other specified hypothyroidism (CMS/HCC) Hyperlipidemia, unspecified hyperlipidemia type ([facility]/HCC) Well adult exam Routine general medical examination at a health care [facility] Age-related osteoporosis without current pathological fracture ([facility]) Multiple lung nodules on CT Osteopenia after menopause Other hyperlipidemia (CMS/HCC)- Primary Viral upper respiratory tract infection Acute upper respiratory infections of unspecified site Encounter for screening mammogram for malignant neoplasm of breast Gastroesophageal reflux disease without esophagitis Esophageal reflux documented in this encounter [facility] HealthcareEvaluation note* Diagnosis Other specified hypothyroidism- Primary Other hyperlipidemia Multiple lung nodules on CT Cellulitis of face Cellulitis and abscess of face Other specified hypothyroidism- Primary Age-related osteoporosis without current pathological fracture (CMS/HCC) Other hyperlipidemia Gastroesophageal reflux disease without esophagitis- Primary Esophageal reflux Other specified hypothyroidism Hyperlipidemia, unspecified hyperlipidemia type ([facility]) Well adult exam Routine general medical examination at a health care [facility] Age-related osteoporosis without current pathological fracture ([facility]) Multiple lung nodules on CT Osteopenia after [...] index (BMI) of36.0 to 36.9 in adult ([facility]) Dyslipidemia ([facility]) Other and unspecified hyperlipidemia documented in this encounter [facility] HealthcareEvaluation note* Diagnosis Other specified hypothyroidism- [...] index (BMI) of36.0 to 36.9 in adult ([facility]) Dyslipidemia Other and unspecified hyperlipidemia Strain of left calf muscle- Primary Left knee pain, unspecified chronicity Left knee pain, unspecified chronicity documented in this encounter [facility] HealthcareEvaluation note* Diagnosis Other specified hypothyroidism- [...] index (BMI) of36.0 to 36.9 in adult ([facility]) Dyslipidemia Other and unspecified hyperlipidemia Degeneration of intervertebral disc of lumbar region with discogenic back pain- Primary Gastroesophageal reflux disease without esophagitis Esophageal reflux Globus sensation Gastrointestinal malfunction arising from mental factors documented in this encounter [facility] HealthcareEvaluation note* Author Fortino Walter [facility] HospitalAuthoredJuly 2024 11:18am- Dyspepsia - Globus sensation - GERD [facility] Work Phone: Evaluation note* Diagnosis Other [...] index (BMI) of36.0 to 36.9 in adult ([facility]) Dyslipidemia Other and unspecified hyperlipidemia Degeneration of [...] 2025 10:49amGERD (gastroesophageal reflux disease)inactiveOctober 2024 10:49am [facility] Work Phone: Hospital Discharge instructions Additional [...] problems. -Follow up with PCP. -Office number [phone]. [facility] Work Phone: Reason for referral (narrative)No reason for referral information availableFlower Hospital Work Phone: Summary Purpose Family History [...] section and content) DATE CREATED AUTHOR 05/24/2022 [facility] DATE CREATED AUTHOR AUTHOR'S ORGANIZ ATION 12/20/2022 [facility] DATE CREATED AUTHOR AUTHOR'S ORGANIZ ATION 05/14/2025 [facility] DATE CREATED AUTHOR AUTHOR'S ORGANIZ ATION 07/03/2025 [facility] DATE CREATED AUTHOR AUTHOR'S ORGANIZ ATION 07/05/2025 [facility] Care Teams (unrecognized sec tion [...] Date Zachary Aldana MD [address] [place] [address] PCP - GeneralFamily Medicine07/27/24 Ben Turpin NP [address] [place] [address] Nurse Practitionermily Medicine07/27/24Team MemberRelationshipSpecialtyStart DateEnd Date Zachary Aldana MD [address] [place] [address] PCP - GeneralFamily Medicine07/27/24 Ben Turpin NP [address] [place] [address] Nurse Practitionermily Medicine07/27/24Team MemberRelationshipSpecialtyStart DateEnd Date Zachary Aldana MD [address] [place] [address] PCP - GeneralFamily Medicine07/27/24 Ben Turpin NP [address] [place] [address] Nurse PractitionerSt. Mary'S Hospital07/27/24Team MemberRelationshipSpecialtyStart DateEnd Date Zachary Aldana MD [address] [place] [address] PCP - Generalmily Medicine07/27/24 Ben Turpin NP [address] [place] [address] Nurse PractitionerCambridge [facility] Medicine07/27/24Team MemberRelationshipSpecialtyStart DateEnd Date Zachary Aldana MD [address] [place] [address] PCP - GeneralFamily Medicine07/27/24 Ben Turpin NP [address] [place] [address] Nurse PractitionerGreater Regional Healthly Medicine07/27/24Team MemberRelationshipSpecialtyStart DateEnd Date Zachary Aldana MD [address] [place] [address] PCP - GeneralFamily Medicine07/27/24 Ben Turpin NP [address] [place] [address] Nurse Practitionermily Medicine07/27/24Team MemberRelationshipSpecialtyStart DateEnd Date Zachary Aldana MD [address] [place] [address] PCP - Generalmily Medicine07/27/24 Ben Turpin NP [address] [place] [address] Nurse PractitionerCambridge [facility] Medicine07/27/24Team MemberRelationshipSpecialtyStart DateEnd Date Zachary Aldana MD [address] [place] [address] PCP - Generalmily Medicine07/27/24 Ben Turpin NP [address] [place] [address] Nurse PractitionerGreater Regional Healthly Medicine07/27/24Team MemberRelationshipSpecialtyStart DateEnd Date Zachary Aldana MD [address] [place] [address] PCP - GeneralFamily Medicine07/27/24 Ben Turpin NP [address] [place] [address] Nurse Practitionermily Medicine07/27/24Team MemberRelationshipSpecialtyStart DateEnd Date Zachary Aldana MD [address] [place] [address] PCP - Generalmily Medicine07/27/24 Ben Turpin NP [address] [place] [address] Nurse PractitionerGreater Regional Healthly Medicine07/27/24Team MemberRelationshipSpecialtyStart DateEnd Date Zachary Aldana MD [address] [place] [address] PCP - GeneralCambridge Hospital Medicine07/27/24 Ben Turpin NP [address] [place] [address] Nurse PractitionerCambridge Hospital Medicine07/27/24Team MemberRelationshipSpecialtyStart DateEnd Date Zachary Aldana MD [address] [place] [address] PCP - Generalmily Medicine07/27/24 Ben Turpin, YENIFER [address] [place] [address] Nurse PractitionerCambridge Hospital Medicine07/27/24Team MemberRelationshipSpecialtyStart DateEnd Date Shaikh Chapin MD PCP - GeneralSage Memorial Hospitalnal Medicine Zachary Aldana MD PCP - Generalmily Medicine07/27/24 Ben Turpin NP Nurse PractitionerSt. Mary'S Hospital07/27/24Team MemberRelationshipSpecialtyStart DateEnd Date Shaikh Chapin MD PCP - GeneralInternal Medicine01/03/ Zachary Aldana MD PCP - [facility]07/27/24 Ben Turpin NP Nurse PractitionerSt. Mary'S Hospital07/27/24 Team Status: Active Member Role/Relationship Status Dates [...] (unrecogniz ed section and content) ReasonOnset DateCommentsMed Paliyx7711/28/2024ReasonCommentsFollow-upReason CommentsBack PainPossible sciatic pain. Starts in lower [...] BE BASED ON THE PRIMARY CLINICAL RECORDS. [facility], [facility]. provides no warranty or guarantee of the accuracy or completeness of information in this document.
[2025-10-12 16:53] LABS: Estimated GFR (African America >60 (>=60 mL/min/1.73m^2); Estimated GFR (Non-African Ame >60 (>=60 mL/min/1.73m^2)
== END 2025-10-12 16:15 | disposition home or self-care (01) ==
PROVIDERS: PCP Family Medicine; Visit Provider Internal Medicine Interventional Cardiology
DX: I20.0 Unstable angina (principal); R94.39 Abnormal result of other cardiovascular function study; I51.7 Cardiomegaly
CPT/HCPCS: 36415; 82565

== ENCOUNTER 2025-10-15 13:27 | Emergency (ER) | payer MEDICARE, OTHER, SELFPAY ==
[2025-10-15] VITALS (10 sets, daily range): BP systolic 147–180; BP diastolic 83–87; PULSE 73–90; TEMP 36.4–36.8; O2SAT 95–98; BMI 36.0
--- NOTE | 2025-10-15 13:45 | XR_ITS ---
[address] [address] Patient Name: JUNI HODGES MRN: [id number] date: 1960 Sex: F Assigned Patient Location: ER Current Patient Location: ED.MAIN Accession/Order Number: [id number] Exam Date: 10/15/2025 14:00 Report Date: 10/15/2025 14:16 At the request of: LIAT VALENZUELA MD Procedure: XR chest 1V XR chest 1V 10/15/2025 2:05 PM SIGNS AND SYMPTOMS: ^Palpitations ^Y PROTOCOL: Frontal radiograph of the chest COMPARISON: 10/21/2024 FINDINGS: The trachea is midline. Atherosclerotic changes are noted in the aortic arch. The heart and mediastinal structures are within normal limits. The lung parenchyma is clear. The bony thorax is intact. XR/XR chest 1V IMPRESSION: No acute cardiopulmonary pathology. Impression dictated by: Caleb Tobin M.D. 10/15/2025 2:16 PM Dictation Location: [place] [address] Electronically authenticated by: [id number] Y Date: 10/15/2025 14:16
--- NOTE | 2025-10-15 13:45 | ECG_ITS ---
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 Measurements Intervals [place] Rate: 85 P: 56 TN: 172 QRS: 68 QRSD: 70 T: 34 QT: 336 QTc: 379 Interpretive Statements 1100 Sinus rhythm 9110 normal ECG Compared to ECG 10/21/2024 01:34:15 Sinus arrhythmia no longer present Electronically Signed On 10-15-2025 22:53:10 EST by TRINITY CASTELLANOS M.D.
--- NOTE | 2025-10-15 13:46 | ED.GENADUL1 ---
HPI HPI - General Adult General Chief complaint: Arrhythmia/Palpitations Stated complaint: CHEST PALPITATIONS Time Seen by Provider: 10/15/25 13:36 Source: patient Mode of arrival: walk-in Limitations: no limitations History of Present Illness HPI narrative: 65-year-old female presented to the emergency department for palpitations. For the past few days she has been feeling a fluttering in her chest that lasts for a few seconds and then goes away. No new medications. No syncope or presyncope or chest pain. Related Data Home Medications ?Medication ?Instructions ?Recorded ?Confirmed alendronate 70 mg tablet 70 mg PO QWEEK 10/21/24 10/15/25 levothyroxine 112 mcg tablet 112 mcg PO DAILY 10/15/25 10/15/25 omeprazole 40 mg capsule,delayed 40 mg PO BID 10/15/25 10/15/25 release Allergies Allergy/AdvReac Type Severity Reaction Status Date / Time No Known Drug Allergies Allergy Verified 10/15/25 13:32 Review of Systems ROS Narrative A ten point review of systems is negative except as noted above. PFSH PFSH Social History Smoking status: Never smoker Little interest or pleasure in doing things: not at all Feeling down, depressed, or hopeless: not at all Exam Narrative Exam Narrative: Nurses note and vital signs reviewed General:The patient appears well and in no apparent distress.Patient is resting comfortably on cart. Skin:Warm, dry, no pallor noted.There is no rash noted. Head:Normocephalic, atraumatic Eye: Normal conjunctiva, no drainage Ears, Nose, Mouth, and Throat: oral mucosa is moist. Nares patent. Cardiovascular:Regular Rate and Rhythm Respiratory:Patient is in no distress, no accessory muscle use, lungs are clear to auscultation, no wheezing, rales or rhonchi Back:non-tender GI: Soft and nontender Musculoskeletal: The patient has no evidence of calf tenderness, no pitting edema, symmetrical pulses noted bilaterally Neurological:A&O, normal speech Psychiatric:Cooperative Constitutional Vital Signs, click to edit/add: Last Vital Signs Temp 97.5 F L 10/15/25 13:32 Pulse 73 10/15/25 14:30 Resp 13 10/15/25 14:30 BP 180/83 H 10/15/25 13:35 Pulse Ox 95 10/15/25 13:35 O2 Del Method Room Air 10/15/25 13:32 Course Vital Signs Vital signs: Vital Signs Temperature 97.5 F L 10/15/25 13:32 Pulse Rate 85 10/15/25 13:32 Respiratory Rate 18 10/15/25 13:32 Blood Pressure 180/83 H 10/15/25 13:32 Pulse Oximetry 98 10/15/25 13:32 Oxygen Delivery Method Room Air 10/15/25 13:32 Temperature 97.5 F L 10/15/25 13:32 Pulse Rate 73 10/15/25 14:30 Respiratory Rate 13 10/15/25 14:30 Blood Pressure 180/83 H 10/15/25 13:35 Pulse Oximetry 95 10/15/25 13:35 Oxygen Delivery Method Room Air 10/15/25 13:32 Medical Decision Making MDM Narrative Medical decision making narrative: Her workup is negative. She had very few PVCs on the heart monitor here her troponin and electrolytes are negative. 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 Differential Diagnosis Differential Diagnosis: PVCs, palpitations Lab Data Lab results reviewed: Yes I reviewed the patient's lab results Labs: Lab Results 10/15/25 Range/Units 13:43 WBC 6.4 (4.0-11.0) 10^3/uL RBC 4.69 (4.20-5.40) 10^6/uL Hgb 13.3 (12.0-16.0) g/dL Hct 40.3 (36.0-48.0) % MCV 85.9 (81.0-99.0) fL MCH 28.4 (26.7-34.0) pg MCHC 33.0 (29.9-35.2) g/dL RDW 14.1 (11.0-15.0) % Plt Count 194 (150-450) 10^3/uL MPV 9.6 (9.5-13.5) fL Neut % (Auto) 69.4 (43.0-75.0) % Lymph % (Auto) 21.6 (20.5-60.0) % Pacific % (Auto) 5.8 (1.7-12.0) % Eos % (Auto) 2.3 (0.9-7.0) % Baso % (Auto) 0.6 (0.2-2.0) % Neut # (Auto) 4.4 (1.4-6.5) 10^3/uL Lymph # (Auto) 1.4 (1.2-3.8) 10^3/uL Pacific # (Auto) 0.4 (0.3-0.8) 10^3/uL Eos # (Auto) 0.2 (0.0-0.7) 10^3/uL Baso # (Auto) 0.0 (0.0-0.1) 10^3/uL Abs Immat Gran (auto) 0.02 (0.00-0.03) 10^3/uL Imm/Tot Granulo (auto) 0.3 (0.0-0.5) % Sodium 141 (136-145) mmol/L Potassium 3.8 (3.5-5.1) mmol/L Chloride 103 (98-107) mmol/L Carbon Dioxide 29.1 (21.0-32.0) mmol/L Anion Gap 12.7 BUN 12.0 (7.0-18.0) mg/dL Creatinine 0.75 (0.55-1.02) mg/dL Est GFR ( Amer) >60 (>=60 mL/min/1.73m^2) Est GFR (Non-Af Amer) >60 (>=60 mL/min/1.73m^2) BUN/Creatinine Ratio 16.0 Glucose 96 (74-106) mg/dL Calcium 9.6 (8.5-10.1) mg/dL Magnesium 1.8 (1.8-2.4) mg/dL Troponin I High Sens 5.8 (4.0-51.3) pg/mL Imaging Data Chest x-ray: Radiologist's impression: ITS Impressions Chest X-Ray 10/15/25 13:45 IMPRESSION: No acute cardiopulmonary pathology. Impression dictated by: Caleb Tobin M.D. 10/15/2025 2:16 PM Dictation Location: [place] [address] Electronically authenticated by: [id number] Y Date: 10/15/2025 14:16 ECG Data Attestation: I personally reviewed and interpreted this ECG as follows: (EKG on my interpretation shows sinus rhythm with rate of 85 and no acute change) Discharge Plan Discharge Chief Complaint: Arrhythmia/Palpitations Clinical Impression: Palpitations Patient Disposition: Home, Self-Care Time of Disposition Decision: 14:44 Condition: Good Mode of Transportation: Private Vehicle Prescriptions / Home Meds: No Action alendronate 70 mg tablet 70 mg PO QWEEK levothyroxine 112 mcg tablet 112 mcg PO DAILY omeprazole 40 mg capsule,delayed release(DR/EC) 40 mg PO BID Print Language: Arabic Instructions: Heart Palpitations (ED), Premature Ventricular Contractions (ED) Referrals: Maddison Madrigal DO [Primary Care Provider, Hospitalist] - 1 week
[2025-10-15 13:54] LABS: Hematocrit 40.3 % (36.0-48.0); Hemoglobin 13.3 g/dL (12.0-16.0); Immature Granulocytes Abs Auto 0.02 10^3/uL (0.00-0.03); Immature Granulocytes Pct Auto 0.3 % (0.0-0.5); Lymphocytes Absolute Auto 1.4 10^3/uL (1.2-3.8); Mean Corpuscular HGB Conc 33.0 g/dL (29.9-35.2); Mean Corpuscular Hemoglobin 28.4 pg (26.7-34.0); Mean Corpuscular Volume 85.9 fL (81.0-99.0); Platelet Count 194 10^3/uL (150-450); Red Blood Count 4.69 10^6/uL (4.20-5.40); White Blood Count 6.4 10^3/uL (4.0-11.0)
--- OUTSIDE RECORDS SUMMARY | 2025-10-15 13:57 | XMS_ITS | Clinical Summary ---
Author Organization [facility] Address [address] [place] [address] Care Team Providers Care Apartment Groundskeeper Name Role Phone Zachary Faulkner MD Primary Care Provider [phone] Allergies Active AllergyReactionsCriticalityNoted DateCommentsCephalexinHivesMedium 01/04/20244732ZxmeuvbyipgPpvriUzqbda33/04/2024 Medications MedicationSigDispense QuantityRefillsLast FilledStart DateEnd DateStatus ykholrel-gwd-cbldqzr fumarate (Multi Vitamin) 9 mg iron/15 mL [...] acid/epa (FISH OIL ORAL) Take by mouth.Active eo-apz-VZ-vit T-qaoanp-lhcirye 200 mcg-15 mcg- 5 mg-1 mg capsule Take by mouth.Active aspirin 81 mg tablet Take 81 mg by mouth in the morning.05/18/2025tive calcium carbonate 600 mg calcium (1,500 mg) tablet Take 600 mg by mouth in the morning.5Active fluticasone (Flonase) 50 mcg/actuation nasal spray Administer 2 sprays into each nostril if needed.07/22/2025tive Active Problems ProblemNoted DateDiagnosed QkqhNvhtjmwtpwmpvq63/12/2025Gastroesophageal reflux llkpoot2009/13/20257747Bmeoiqkdgwiltysjhvda92/12/4102Meswmdsijqex02/12/2025typical chest pain09/13/20250906Jwsocnjxl69/12/2025Encounter for screening for malignant neoplasm of lung09/13/2025Facet arthritis of lumbar fpmpzu8209/13/2025Tingling of right upper npoqhflhv17/12/2025Globus uwmgbbgmw60/09/2025lass 2 severe obesity due to excess calories with serious comorbidity and body mass index (BMI) of36.0 to 36.9 in adult02/23/2025Degeneration of intervertebral disc of lumbar region with discogenic back pain02/23/2025Osteopenia of left femoral neck02/15/2024 Calculus of gallbladder without cholecystitis without wmjngmdcayb03/04/2024 Srnweoiohbvv39/04/2024Former cfenob7501/04/2024Hypothyroidism in adult01/04/20[address] nodules on [address]01/04/2024 Encounters DateTypeDepartmentCare LacvNqazohtnpad28/12/2025 1:00 PM ESTOffice Visit [facility] [address] [place] [address] Ángela Malone MD Angina pectoris, unstable (CMS/HCC) (Primary Dx); Cardiovascular stress test abnormal; Obesity (BMI 35.0-39.9 without comorbidity); LVH (left ventricular hypertrophy)09/13/2025Orders Only [facility] [address] [place] [address] Provider, MD Gómez from Last 3 Months Family History Medical HistoryRelationNameCommentsClotting disorderFather's SisterSANDY CRUZ MY SONDiabetesMotherJEANNE HERMANRelationNameStatusCommentsFather DeceasedFather's SisterSANDY CRUZ MY SONAliveMotherJEANNE HERMANDeceased Social History Tobacco UseTypesPacks/DayYears UsedDateSmoking Tobacco: FormerCigarettesQuit: 05/05/2007Smokeless Tobacco: Never Tobacco Cessation:Counseling Given: Not Answered Alcohol UseStandard Drinks/WeekCommentsYes1 (1 standard drink = 0.6 oz pure alcohol)PHQ-2AnswerDate RecordedPatient Health Questionnaire-2 Ambop668 CommentsUnknownSex and Gender InformationValueDate RecordedSex Assigned at AqtlxWwayzc70/17/2025 12:55 PM EDTLegal CsvJrfvnj46/01/2025 9:38 AM EDTGender RltjelqnZeqrfb62/17/2025 12:55 PM EDTSexual OrientationChoose not to disclose 06/18/2025 12:55 PM EDT Last Filed Vital Signs Vital SignReadingTime TakenCommentsBlood Ocsbxgeb887/80111/13/2024 1:07 PM EST Gboxr749909/13/2025 1:07 PM ESTTemperature--Respiratory Rate--Oxygen Hplmuxsyoo49% 09/13/2025 1:07 PM ESTInhaled Oxygen Concentration--Tdoszo41.4 kg (217 lb) 09/13/2025 1:07 PM LAVSsfjqb436.6 cm (5' 4 )09/13/2025 1:07 PM ESTBody Mass Index37.25111/13/2024 1:07 PM EST Plan of Treatment DateTypeDepartmentCare Team (Latest Contact Info)Arliychfejv06/18/2025 8:00 AM ESTAppointment [facility] [address] [place] [address] Health MaintenanceDue DateLast DoneCommentsCT Dzhkclejnmrm1959FIT-DNA 1960FIT1960FOBT1960Medicare Annual Wellness (AWV)1960 Ioaaszfmrmzem1959Pneumococcal Vaccine: 50+ Years (1 of 2 - PCV)1978 Adult Imwgxnh4810/03/19810688Uhdnrffpi06/02/1999COVID-19 Vaccine ( season) , 08/24/2023, 08/23/2022, Additional history exists Depression Ilydzrhgj22Fall Risk Fsxzcabdr87 Uumslycqlpm64olorectal Cancer Qajfrtuox50/11/2031Zoster ZumwjoxuUefckztpt54/07/2023, 02/04/2023Influenza XadqlyxSlpgxpkgn25/20/2025, 08/15/2024, 08/24/2023, Additional history existsHIB VaccinesAged OutNo longer eligible based on patient's age to complete this topicHPV VaccinesAged OutNo longer eligible based on patient's age to complete this topicIPV VaccinesAged OutNo longer eligible based on patient's age to complete this topicMeningococcal B VaccineAged OutNo longer eligible based on patient's age to complete this topicMeningococcal VaccineAged OutNo longer eligible based on patient's age to complete this topicRotavirus VaccinesAged OutNo longer eligible based on patient's age to complete this topic Procedures Procedure NamePriorityDate/TimeAssociated DiagnosisCommentsTREADMILL STRESS MYOCARDIAL PERFUSION YOWVVHCEuknsxv69/05/2025 9:39 AM ESTfrom Last 3 Months Results * Treadmill Stress Myocardial Perfusion Imaging (09/06/2025 9:39 AM EST) Anatomical RegionLateralityModalityOther Narrative Authorizing ProviderResult TypeResult StatusHistorical Provider MDCV STRESS PROCEDURESFinal Result from Last 3 [place] [address] Care Teams Team MemberRelationshipSpecialtyStart DateEnd Date Zachary Faulkner MD [address] [facility] [place] [address] PCP - GeneralFamily Medicine06/18/25
--- OUTSIDE RECORDS SUMMARY | 2025-10-15 13:57 | XMS_ITS | Clinical Summary ---
Author Organization [facility] Address [address] [facility] [place] [address] Care Team Providers Care Tool Crib Manager Name Role Phone Zachary Faulkner MD Primary Care Provider [phone] Farnaz Hoffmann NEURODIAGNOSTIC TECH Unavailable [phone] Allergies Active AllergyReactionsCriticalityNoted DateCommentsClindamycinHivesMedium 01/04/20247764FidudixrpbZrwbcZtekcg87/04/2024 Medications MedicationSigDispense QuantityRefillsLast FilledStart DateEnd DateStatus atorvastatin [...] tablet 5Active Active Problems ProblemNoted DateDiagnosed DateGlobus pajimblws31/09/2025 Assessment & Plan (05/10/2025 11:13 AM EDT): [...] AM EDT): Weight loss indicated. Gastroesophageal reflux spkagfd3202/15/2024 Assessment & Plan (05/10/2025 11:13 AM EDT): [...] to elevated TSH on previous lab measurement Xwgnaifdjhsm79/04/2024 Assessment & Plan (02/23/2025 11:00 AM EDT): [...] goal Calculus of gallbladder without cholecystitis without aglvambbmau51/04/2024 Multiple lung nodules on CT01/04/2024 Assessment & Plan (05/17/2024 1:19 PM EDT): Noted on CT chest 12/2022 - Will repeat now as more than a year to ensure stability. Former smoker - about 20 pack year smoking hx. Assessment & Plan (01/04/2024 2:46 PM EST): Stable in CT chest 12/2022 - repeat needed in 2023 Former smoker. Former ezqkyi1401/04/2024 Resolved Problems ProblemNoted DateDiagnosed DateResolved DateViral upper respiratory tract fuwddmhbc61/ Assessment & Plan (11/30/2024 1:25 PM EST): [...] both ears without spontaneous rupture of tympanic dgfwhcayi08/Wheezing-associated respiratory lrpwfhsfm14Respiratory illness with fever/ Jrggvjmns30/ellulitis of face Assessment & Plan (01/04/2024 2:47 PM EST): ED visit for it on 12/27 - resolved now. Using bactrim DS No pain, erythema noted today on exam Osteopenia after iykzmfiga50/ Immunizations ImmunizationAdministration DatesNext DueInfluenza, Seasonal, Quadrivalent, Oadevjbttz64/23/2023Influenza, injectable, qqojbatlgltm49/03/2020,08/10/2018 Influenza, injectable, quadrivalent, preservative free09/16/2022,08/19/2021, 08/21/2017Influenza, seasonal, jsehfpxuvn82/16/4662GFZY-AIU-5 (COVID-19) vaccine, mRNA, spike protein, LNP, PF, daysi-sucrose, 30 mcg/0.3 mL08/24/2023 Zoster, Ejbxrhzirzo30/07/2023,02/04/2023 Family History Medical HistoryRelationNameCommentsRespiratory illnessFathercause of DiabetesMotherHeart diseaseMotherHypertensionMotherRespiratory illnessMother cause of qtyngAhtiajboDnagSkgugfZixohstyIhxwjhdq8RbfdgrdaTifboDcyifaJlhgefpt IwbjpxLreoddvzAvhdfMseeiOtliwmx0ZbfAeeil Social History Tobacco UseTypesPacks/DayYears UsedDateSmoking Tobacco: NeverPassive Smoke Exposure: NeverSmokeless Tobacco: Never Tobacco Cessation:Counseling Given: Not Answered Alcohol UseStandard Drinks/WeekCommentsYes0 (1 standard drink = 0.6 oz pure alcohol)NDBIPOJBDHBG6714 Health LiteracyAnswerDate RecordedHow often do you need [...] week02/21/2025How often do you attend gnosticist or oriental orthodox services?More than 4 times per year 02/21/2025Do you belong to any clubs or organizations such as gnosticist groups, unions, fraternal or athletic groups, or school groups?Yes02/21/2025How often do you attend meetings of the clubs or organizations you belong to?1 to 4 times per year02/21/2025re you , , , , never , or living with a partner?Yeblnvo2202/21/2025UDIT-CAnswerDate RecordedQ1: How often do you have a drink containing alcohol?Monthly or less02/21/2025Q2: How many drinks containing alcohol do you have on a typical day when you are drinking?3 or Q3: How often do you have six or more drinks on one occasion?Less than ipjnwjo7202/21/2025Overall Financial Resource Strain (CARDIA)AnswerDate RecordedHow hard is it for you to pay for the very basics like food, housing, medical care, and heating?Not hard at all02/21/2025PHQ-2AnswerDate Recorded Patient Health Questionnaire-2 Wppdg998Hunger Vital SignAnswerDate RecordedWithin the past 12 months, [...] were you homeless or living in a fci (including now)?No02/21/2025CommentsUnknownSex and Gender InformationValueDate RecordedSex Assigned at BirthNot on fileLegal SexFemale 01/14/2023 9:45 PM EDTGender IdentityNot on fileSexual OrientationNot on file Last Filed Vital Signs Vital SignReadingTime TakenCommentsBlood Bwxnjdpx046/7207 10:50 AM EDT Cklkx455605/10/2025 10:50 AM TVSYviljwuxklm39.4 ??C (95.7 ??F)05/10/2025 10:50 AM EDTRespiratory Eljq051805/10/2025 10:50 AM EDTOxygen Oqytrzucas47%05/10/2025 10:50 AM EDTInhaled Oxygen Concentration--Ljiwrk439 kg (224 lb)05/10/2025 10:50 AM EDT Gtqtqc682.1 cm (5' 5 )05/10/2025 10:50 AM EDTBody Mass Index37.2807 10:50 AM EDT Plan of Treatment Health MaintenanceDue DateLast DoneCommentsCT Lnxhldxnfydj1959FIT-DNA 1960FIT1960FOBT1960 9784Clgooxwrqrjww1959Pneumococcal Vaccine: 65+ Years (1 of 1 - PCV)2009COVID-19 Vaccine (2024- season) /, 03/25/2022, 09/10/2021, Additional history existsInfluenza Vaccine (#1)/, 08/24/2023, 09/16/2022, Additional history ezzwpdBkmhdhkmn83/14/149783/, 2043Zjdihdaaezj39/11/203108/09/2021, 11/02/2020olorectal Cancer Lzfxalchl70/11/2031 Procedures Procedure NamePriorityDate/TimeAssociated DiagnosisCommentsMM TOMOSYNTHESIS SCREENING BI12/16/2024 11:30 AM EST from Last 3 Months or Most Recently Relevant to Health Maintenance Results * MM TOMOSYNTHESIS SCREENING BI (12/16/2024 11:30 AM EST)Anatomical Region LateralityModalityOtherSpecimen (Source)Anatomical Location / Laterality Collection Method / VolumeCollection TimeReceived Time12/16/2024 11:30 AM EST Narrative 12/16/2024 11:31 AM EST [facility] ?[address] ? [place] [address] ? Mammography Report ? Signed ? Patient: HODGES,CATHERINE J ?MR#: [id number] ?? : 1960 ?Acct:[id number] ?? Age/Sex: 64 / F ?ADM Date: 12/15/24 ?? Loc: MAMMO ? Attending Dr: FARNAZ HOFFMANN ? Ordering Physician: FARNAZ HOFFMANN ?Results: ? Date of Service: 12/15/24 ?Follow Up: ? Procedure(s): MM tomosynthesis screening BI ?? Accession Number(s): [id number] ? cc: SHUN,FARNAZ ? Patient Name: ? CATHERINE HODGES ? MR#: [id number] ? : 1960 ? Exam Date: 12/15/2024 [...] at age ??69. ? LOCATION: ? [facility] ? BREAST COMPOSITION: ? There are scattered [...] M.D. ? Signed By: ?12/16/241130 ? DD/ ? TD/TT: ? Theatre Program Director: Procedure Note Radiology, Radiologist, MD - 12/16/2024 [place] [address] Mammography Report Signed Patient: CATHERINE HODGES JMR#: [id number] : 1960cct:[id number] Age/Sex: 64 / FADM Date: 12/15/24 Loc: MAMMO Attending Dr: FARNAZ HOFFMANN Ordering Physician: Jennifer HOFFMANNults: Date of Service: 12/15/24Follow Up: Procedure(s): MM tomosynthesis screening BI Accession Number(s): [id number] cc: FARNAZ HOFFMANN Patient Name: CATHERINE HODGES MR#: [id number] : 1960 Exam Date: 12/15/2024 Ordering Doctor: FARNAZ HOFFMANN RADIOLOGY REPORT PROCEDURE: MM TOMOSYNTHESIS SCREENING BI COMPARISON: MM TOMOSYNTHESIS SCREENING BI, 10/06/2023. MG MAMM HCPWTC9X MEKA CAD, 09/24/2022. MG MAMM SCREEN 3D MEKA CAD, 04/16/2021. MG MAMM BILSCRN W CAD DIG, 05/31/2013. INDICATIONS: Screening Calculator Name NCI Breast Cancer Risk Assessment Tool 5 Year Breast Cancer Risk 1.60% Lifetime Breast Cancer Risk 6.10% Personal Breast Cancer No Personal Ovarian Cancer No Treatments None Family Cancers Grandmother-paternal with breast cancer at age 70. LOCATION: [facility] BREAST COMPOSITION: There are scattered areas [...] M.D. Signed By:12/16/24 1131 DD/ 1130 TD/TT: Theatre Program Director: Authorizing ProviderResult TypeResult StatusBrittjudy Hoffmann NPCLINISYNC IMAGINGFinal Result from Last 3 Months or Most Recently Relevant to [place] [address] Care Teams Team MemberRelationshipSpecialtyStart DateEnd Date Zachary Faulkner MD PCP - GeneralFamily Medicine07/27/24 Farnaz Hoffmann NP Nurse PractitionerFamily Medicine07/27/24
[2025-10-15 14:04] LABS: Anion Gap 12.7; Blood Urea Nitrogen 12.0 mg/dL (7.0-18.0); Calcium 9.6 mg/dL (8.5-10.1); Carbon Dioxide 29.1 mmol/L (21.0-32.0); Chloride 103 mmol/L (98-107); Estimated GFR (African America >60 (>=60 mL/min/1.73m^2); Estimated GFR (Non-African Ame >60 (>=60 mL/min/1.73m^2); Glucose 96 mg/dL (74-106); Magnesium 1.8 mg/dL (1.8-2.4); Potassium 3.8 mmol/L (3.5-5.1); Sodium 141 mmol/L (136-145)
== END 2025-10-15 15:16 | disposition home or self-care (01) ==
PROVIDERS: Emergency Provider Emergency Medicine; PCP Family Medicine
DX: R00.2 Palpitations (principal)
CPT/HCPCS: 36415; 71045; 80048; 83735; 84484; 85025; 93005; 99283